=== PATIENT | male | born 1975 | race African-American/Black ===

== ENCOUNTER → 2024-01-12 09:14 | Outpatient (REF) | payer MEDICARE, OTHER, SELFPAY | LOC: RAD 09:14 | PROVIDERS: ATTENDING PHYSICIAN Internal Medicine Critical Care Medicine; FAMILY PHYSICIAN Internal Medicine; REFERRING PHYSICIAN Physician Assistant | DX: R93.89 Abnormal findings on diagnostic imaging of other specified body structures (principal) | CPT/HCPCS: 71250 ==

== ENCOUNTER 2024-01-28 03:12 | Emergency (ER) | payer MEDICARE, OTHER, SELFPAY ==
[2024-01-28 03:15] VITALS: BMI 32.0
[2024-01-28 03:27] VITALS: BP 115/58
[2024-01-28 04:00] VITALS: BP 111/81
[2024-01-28 04:13] LABS: % Eosinophils 2.6 % (0-6); % Immature Granulocytes 0.4 % (0-0.5); % Lymphocytes 13.8 % (20.5-51.1); % Monocytes 11.9 % (1.7-9.3); % Neutrophils 70.3 % (42.2-75.2); Absolute Basophils 0.1 10^3/uL (0-0.2); Absolute Eosinophils 0.2 10^3/uL (0-0.7); Absolute Monocytes 0.8 10^3/uL (0.1-0.6); Absolute Neutrophils 4.8 10^3/uL (1.4-6.5); Hematocrit 32.4 % (39.0-52.0); Hemoglobin 10.4 g/dL (13.0-18.0); Mean Corp Hgb Conc. 32.1 g/dL (33.0-37.0); Mean Corpuscular Hgb 27.4 pg (27.0-31.0); Mean Corpuscular Volume 85.3 fL (80.0-94.0); Mean Platelet Volume 10.7 fL (7.4-10.4); Nucleated Red Blood Cells % 0 % (-); Platelet Count 213 10^3/uL (130-400); Red Cell Dist. Width 19.2 % (11.5-14.5); White Blood Cell Count 6.9 10^3/uL (4.8-10.8)
[2024-01-28 04:52] LABS: INR 2.08; PT 23.3 Sec (11.4-14.6)
[2024-01-28 05:10] VITALS: BP 125/76
[2024-01-28] MEDS: DUONEB 3 ML INH ×2 (05:24→06:19)
[2024-01-28 05:40] LABS: ALT (SGPT) 28 U/L (0-50); AST (SGOT) 41 U/L (17-59); Albumin 4.4 g/dl (3.5-5.0); Alkaline Phosphatase 124 U/L (38-126); Blood Urea Nitrogen 41 mg/dl (9-20); Calcium 10.1 mg/dl (8.4-10.2); Carbon Dioxide 30 mmol/L (22-30); Chloride 96 mmol/L (98-107); Estimated Creatinine Clearance 18 ml/min; Glucose 125 mg/dl (70-99); NT-proBNP > 27000 pg/ml; Potassium 3.5 mmol/L (3.5-5.1); Sodium 141 mmol/L (135-145); Total Bilirubin 1.2 mg/dl (0.2-1.3); Total Protein 8.3 g/dl (6.3-8.2); Troponin I 0.045 ng/ml; eGFR 10.27
--- NOTE | 2024-01-28 05:55 | ED.GENMED ---
History of Present Illness
General
Chief Complaint: Breathing Problem
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 CT of the chest January 12, 2024 showing mild upper and lower lobe peribronchial thickening mildly progressed from previous CT October 2021) and
previous hospital records (ED visit for somewhat similar complaint of cough October 2023)
Exam Limitations: none
Time Seen by Provider: 01/28/24 04:19
Nursing documentation reviewed up to this point in time: agreed with
Travel History
Have you had any contact with someone who has COVID-19?: No
Do you have any symptoms of coronavirus? Fever > 100 degrees, chills, cough, shortness of breath, sore throat, loss of taste or smell, muscle aches, or headache?: Yes
Symptoms:: see above
History of Present Illness
History of Present Illness:
This is a 48-year-old gentleman who resides at a local halfway. He has history of chronic kidney disease dialysis dependent, history of COPD, chronic nasal cannula oxygen at 3 L, history of A-fib, chronically maintained on Coumadin prior
history of hypertension, CHF. He complains of chronic cough, ongoing for several weeks but worse over the past week. Mild but temporary relief with nebulizer treatment, no relief with Tessalon Perles. He has not had a fever nor chills. Cough is
hacking and nonproductive in nature accompanied with shortness of breath only noted with coughing fits. He does note a sore throat with coughing but has had no chest pain. No hemoptysis. Appetite has been good, no vomiting.
There has been no report of hypoxemia. He denies leg pain or swelling.
Received normal dialysis treatment yesterday and states he has been getting down to his usual dry weight with dialysis.
Previous ED visit for similar ongoing cough noted October 2023. CT of the chest
January 12, 2024 performed due to 3-month history of cough. CAT scan shows interstitial thickening and groundglass opacity on the right greater than left slightly progressed from previous CAT scan October 2021. Concerning for sarcoidosis,
hypersensitivity pneumonitis, lymphoid interstitial pneumonia, amyloidosis, less likely lymphangitic carcinomatosis or lymphoma/leukemia.
[facility] reviewed. INR supratherapeutic at 4.6 January 25. Coumadin held on January 25 and again January 26. To resume January 27.
Past History
Past History
ED Past Medical History: Arrthythmia (Atrial fibrillation), Asthma, HTN, Hypercholesterolemia, NIDDM, [place], Renal failure (End stage.), Valvular disease, Hypothyroidism and Other (Acute and chronic respiratory failure, sepsis, endocarditis, mitral
valve, depressive episodes, anemia, morbid obesity, pulmonary hypertension, Pulmonary edema, Colitis, GI bleeding. Dialysis, Ulcers)
ED Past Surgical History: Cardiac (Heart valve prosthesis) and Other
Social History
Tobacco: Former smoker
Alcohol: Occasional
Drug: None
Personal:
Living: halfway ( [facility])
Employment: Not employed
Family History
Family History: Hypertension
Phy Exam
Physical Exam
Physical Exam:
GENERAL: 48-year-old gentleman appears somewhat older than stated age, bright and alert, pleasant, appears in no acute distress. Nasal cannula oxygen in place. Respirations are easy and nonlabored. Rare hacking nonproductive cough is noted. Able
to speak in full sentences.
EYE: anicteric
NECK: Supple, nontender, no meningismus, no significant adenopathy. No JVD.
ENT: oral mucosa is moist. Mildly boggy pale blue turbinates with scant clear rhinorrhea.
CARDIAC: Irregularly irregular at a rate of 90-100, no murmur.
LUNGS: Mild bibasilar rales otherwise clear to auscultation. No respiratory distress.
ABDOMEN: Rotund, soft, nondistended, without focal tenderness, no r/g, no cvat. normoactive BS.
NEUROLOGICAL: Alert and oriented x3, no focal neuro deficits.
SKIN: Warm and dry, normal color, skin intact. No rash.
MUSCULOSKELETAL: Trace pretibial edema bilateral lower extremities. AV graft left upper arm, positive thrill and bruit. Peripheral pulses are full and equal b/l. No palpable tenderness.
PSYCH: Normal and appropriate interaction.
Scores
Heart Failure Risk
Heart Failure Risk Score: Yes
History of Stroke or TIA: No
History of intubation for respiratory distress: No
Heart rate on ED arrival >/= 110: Yes
SaO2 <90% on arrival on room air: No
HR >/=110 during 3min walk test (or too ill to perform test): Yes
ECG has acute ischemic changes: No
Urea >/=12mmol/L (BUN 33.6mg/dL): Yes
Serum CO2>/=35mmol/L: No
Troponin I or T elevated to MT Level (0.4mg/dL): No
NT-proBNP >/=5,000ng/L (5,000pg/ml): Yes
HF Risk Score: 4
Admission Status: HIGH RISK 26.1% Consider SNF treatment or admission to hospital
Course
Orders/Labs/Results
Orders:
Orders
01/28/24 03:22
Electrocardiogram (*1) Urgent
Reason for Study: Other
Other Reason for Exam: Respiratory Distress
Cardiac Monitoring- Treatment ONCE
EKG- Treatment ONCE
IV Insert/Care/Rem.- Treatment PRN
CR Chest - 2 Views Urgent
Comment:
Reason For Exam: respiratory distress
01/28/24 04:05
Complete Blood Count/With Diff Urgent
01/28/24 04:34
Comprehensive Metabolic Panel Urgent
NT-proBNP Urgent
Prothrombin Time Urgent
Troponin I Urgent
01/28/24 05:13
Ipratropium/Albuterol Sulfate [Duoneb] 3 ml INH R NOW STA
01/28/24 06:17
Ipratropium/Albuterol Sulfate [Duoneb] 3 ml .ROUTE .STK-MED ONE
01/28/24 06:18
Ipratropium/Albuterol Sulfate [Duoneb] 3 ml INH R NOW ONE
Prednisone [Deltasone] 50 mg PO NOW STA
Abnormal Lab Results
01/28/24 01/28/24
04:05 04:34
RBC 3.80 L 10^6/uL
(4.70-6.10)
Hgb 10.4 L g/dL
(13.0-18.0)
Hct 32.4 L %
(39.0-52.0)
MCHC 32.1 L g/dL
(33.0-37.0)
RDW 19.2 H %
(11.5-14.5)
MPV 10.7 H fL
(7.4-10.4)
Absolute Lymphs (auto) 1.0 L 10^3/uL
(1.2-3.4)
Absolute Monos (auto) 0.8 H 10^3/uL
(0.1-0.6)
Lymphocytes % 13.8 L %
(20.5-51.1)
Monocytes % 11.9 H %
(1.7-9.3)
PT 23.3 H Sec
(11.4-14.6)
Chloride 96 L mmol/L
(98-107)
BUN 41 H mg/dl
(9-20)
Creatinine 6.2 H* mg/dL
(0.7-1.3)
Glucose 125 H mg/dl
(70-99)
Troponin I 0.045 H* ng/ml
Total Protein 8.3 H g/dl
(6.3-8.2)
01/28/24 04:05
01/28/24 04:34
Vital Signs
Initial and Last Documented VS:
Initial Vital Signs
Temp Pulse Resp Pulse Ox
98.8 F 117 24 97
01/28/24 03:15 01/28/24 03:15 01/28/24 03:15 01/28/24 03:15
Last Documented Vital Signs
Temp Pulse Resp BP Pulse Ox
98.8 F 120 34 125/76 100
01/28/24 03:15 01/28/24 05:30 01/28/24 05:30 01/28/24 05:10 01/28/24 05:30
MDM/Problems Addressed
Differential Diagnosis Includes:
Patient presents with exacerbation of chronic cough.
Concern for acute on chronic CHF, exacerbation of COPD, pneumonia.
Will check labs, PT/INR, chest x-ray.
Will trial DuoNeb nebulizer for cough.
Chronic conditions affecting care: HTN, Cardiomyopathy, Arrhythmia, COPD and Kidney disease
*Radiology
Radiology exam reviewed: preliminary read by ED provider (Chest x-ray shows marked with stable cardiomegaly, mild increased interstitial markings bilaterally has improved from previous films October 2023.)
*Pulse Oximetry
Patient hypoxic: no
*EKG
Interpreted by ED Provider?: Yes
Comparison EKG: no changes (Unchanged from previous October 2023)
Rate: normal
Rhythm: a-fib and PVC's (Unifocal PVCs)
Duff: normal axis
Interval: normal QT interval
QRS Pattern: normal QRS
Ischemia: non-specific ST changes
*Computer Engineering Technologist Interpretation
Rate: normal
Interpretation: normal
Rhythm: a-fib
*Critical Care Note
Total Time (30-74mins, 75-104mins- exclusive of procedures): Not Applicable
Update Note
Update Note:
01/28/2024 0615 AM
Patient has had marked improvement in cough after initial nebulizer treatment. Overall appears comfortable.
Chest x-ray shows chronic cardiomegaly, mild to moderate interstitial fullness bilaterally that is overall improved from previous film October 2023.
Labs showed normal white blood cell count of 6.9, mild but stable anemia.
Chemistries show stable chronic kidney disease, unremarkable electrolytes.
Markedly elevated BNP which is overall improved from previous.
Borderline elevated troponin 0.045, similar to previous and likely reflective of chronic kidney disease.
INR 2.08. COUMADIN to be resumed today.
CT of the chest performed earlier this month for chronic cough concerning for interstitial pneumonitis, sarcoid. It is reassuring that patient has not had a fever and normal white blood cell count.
CT not consistent with fluid overload/CHF.
I have discussed these findings with patient and ultimately recommend evaluation with bottom crane operator.
We could consider adding a short course of prednisone and recommend continuing nebulizer treatments but increasing to 4 times daily as well as every 4 hours as needed.
Will discharge back to halfway for continued care.
ED Attending Note
-
Portions of this chart may have been created with voice recognition software.� Occasional wrong word or��sound alike� substitutions may have occurred due to the inherent limitations of voice recognition software.
Discharge Plan
Departure
Patient Disposition: Prison/SNF
Date of Disposition: 01/28/24
Time of Disposition: 06:41
Patient with high blood pressure during this ER visit?: No
Condition: Good
Discharge Problem:
acute exacerbation of chronic cough, COPD exacerbation, On home oxygen therapy, Dialysis patient
Instructions: Exacerbation of COPD (DC)
Prescriptions:
New
prednisone 10 mg Tablet
See Rx Instructions .ROUTE .COMPLEX Qty: 30 0RF
Rx Instructions:
Take By Mouth:
40 mg daily x3 days, 30 mg daily x3 days,
20 mg daily x3 days, 10 mg daily x3 days.
No Action
gabapentin 300 MG capsule
300 mg PO HS
polyethylene glycol 3350 17 GRAMS powder in packet
17 grams PO SUTUTHSA PRN (Reason: constipation)
Rx Instructions:
10/14/2023, take in the morning.
sevelamer carbonate 800 MG tablet
800 mg PO MEALS
liothyronine 25 MICROGRAM tablet
75 mcg PO DAILY
atorvastatin 20 MG tablet
20 mg PO HS
levothyroxine 300 MCG tablet
300 mcg PO DAILY
pantoprazole 40 MG tablet,delayed release (DR/EC)
40 mg PO DAILY
bisacodyl [OneLAX Bisacodyl] 10 MG suppository
10 mg [place] DAILYPRN PRN (Reason: constipation)
metoprolol succinate 25 mg tablet extended release 24 hr
25 mg PO MOWEFR@2200
Rx Instructions:
10/14/2023, take at bedtime on Fr.
metoprolol succinate 25 mg tablet extended release 24 hr
25 mg PO SUTUTHSA
Rx Instructions:
10/14/2023, take BID on Sundays, Tuesdays, , and Saturdays.
budesonide 0.25 mg/2 mL Suspension For Nebulization
0.25 mg INHALATION R [id number] PRN (Reason: SOB/wheezing)
benzonatate [Tessalon Perles] 100 mg Capsule
100 mg PO Q8HPRN PRN (Reason: cough)
albuterol sulfate [ProAir HFA] 90 mcg/actuation Hfa Aerosol Inhaler
2 puff INHALATION R Q4HPRN PRN (Reason: asthma)
sennosides [senna] 8.6 mg Tablet
8.6 mg PO HS
warfarin [Coumadin] 2 mg Tablet
11 mg PO QPM
Nephrocaps 1 mg Capsule
1 cap PO HS
midodrine 10 mg Tablet
10 mg PO Q6H
Rx Instructions:
10/14/2023, hold for SBP>=150.
bupropion HCl [Wellbutrin XL] 300 mg Tablet Extended Release 24 Hr
300 mg PO MOWEFR@2200
Rx Instructions:
10/14/2023, take at bedtime on .
acetaminophen 325 MG tablet
650 mg PO Q4HPRN PRN (Reason: mild pain/temp>100F)
tramadol 50 mg tablet
50 mg PO Q6HPRN PRN (Reason: moderate pain)
Referrals:
William Bellamy DO [Family Provider] - Call in 1-3 days for appt
Cesar Lozoya MD [Active] - Call in 1-3 days for appt
Activity Restrictions/Additional Instructions:
Increase DuoNeb nebulizer to 4 times daily.
Continue budesonide inhaler twice daily.
Interventions
Interventions:
*Risk Screen - Suicide Last Done: 01/28/24 03:15
*General Assessment Last Done: 01/28/24 03:15
*Neglect/Abuse Screening Last Done: 01/28/24 03:15
ED- Fall Risk Assessment Last Done: 01/28/24 03:15
*ED COVID-19 Vaccine History Last Done: 01/28/24 03:15
ED- Cardiac Assessment Last Done: 01/28/24 03:15
ED- Pulmonary Assessment Last Done: 01/28/24 03:15
[2024-01-28] MEDS: DELTASONE 50 MG PO (06:39)
[2024-01-28 06:41] VITALS: BP 116/66
== END 2024-01-28 07:15 ==
LOC: EMR 03:12
PROVIDERS: Student in an Organized Health Care Education/Training Program; EMERGENCY PHYSICIAN Emergency Medicine; FAMILY PHYSICIAN Internal Medicine
DX: R05.3 Chronic cough (principal); D64.9 Anemia, unspecified; N18.6 End stage renal disease; I13.2 Hypertensive heart and chronic kidney disease with heart failure and with stage 5 chronic kidney disease, or end stage renal disease; I42.9 Cardiomyopathy, unspecified; J44.9 Chronic obstructive pulmonary disease, unspecified; I48.91 Unspecified atrial fibrillation; Z99.2 Dependence on renal dialysis; Z99.81 Dependence on supplemental oxygen
CPT/HCPCS: 99285; 94640; 71046; 80053; 83880; 84484; 85025; 85610; 93005

== ENCOUNTER 2024-02-22 07:35 | Emergency (ER) | payer MEDICARE, OTHER, SELFPAY ==
[2024-02-22 07:37] VITALS: BP 126/69
--- NOTE | 2024-02-22 08:20 | ED.GENMED ---
History of Present Illness
General
Chief Complaint: Nose Bleed
Source: patient
Time Seen by Provider: 02/22/24 07:55
Travel History
Have you had any contact with someone who has COVID-19?: No
Do you have any symptoms of coronavirus? Fever > 100 degrees, chills, cough, shortness of breath, sore throat, loss of taste or smell, muscle aches, or headache?: No
History of Present Illness
History of Present Illness:
48-year-old male with extensive cardiopulmonary past medical history, chronic kidney disease (hemodialysis Tuesday, Tuesday, Tuesday) presenting emergency department for evaluation of a nosebleed that started last night and has been intermittent
since, got worse on his way to dialysis prompting him to come to the ER for further evaluation. Patient is on Coumadin for his cardiac disease and reports good compliance with this, unknown last INR. States bleeding was coming from the right nare
only and seems to be under control at this time. Patient wears 3 L via nasal cannula chronically and notes a history of epistaxis from the same nare in the past. Denies any fevers or infectious symptoms or any other concerns.
Past History
Past History
ED Past Medical History: Arrthythmia (Atrial fibrillation), Asthma, HTN, Hypercholesterolemia, NIDDM, [place], Renal failure (End stage.), Valvular disease, Hypothyroidism and Other (Acute and chronic respiratory failure, sepsis, endocarditis, mitral
valve, depressive episodes, anemia, morbid obesity, pulmonary hypertension, Pulmonary edema, Colitis, GI bleeding. Dialysis, Ulcers)
ED Past Surgical History: Cardiac (Heart valve prosthesis) and Other
Social History
Tobacco: Former smoker
Alcohol: Occasional
Drug: None
Personal:
Living: [facility] ( [facility])
Employment: Not employed
Family History
Family History: Hypertension
Review of Systems
Review of Systems
All Other Systems: ROS reviewed and negative except as documented in HPI and ROS
Phy Exam
Physical Exam
Physical Exam:
GENERAL: Alert , in no apparent distress
EYE: conjunctiva clear
NECK: Supple
ENT: Small epistaxis posterior oropharynx and anterior right nare, mmm. Tolerating secretions
CARDIAC: Regular rate and rhythm
LUNGS: Clear breath sounds bilaterally, no acute respiratory distress, no wheezes/rales/rhonchi
NEUROLOGICAL: Alert and oriented
SKIN: Warm and dry, skin intact.
MUSCULOSKELETAL: well perfused. RUE fistula
PSYCH: Normal and appropriate interaction.
Scores
Heart Failure Risk
Heart Failure Risk Score: Not Applicable
Heart Score for Chest Pain Patients
STEMI patient?: Not applicable
Withdrawal Assessment of Alcohol
Withdrawal Assessment Completed?: Not applicable
Course
Orders/Labs/Results
Orders:
Orders
02/22/24 08:16
Hemoglobin Urgent
Prothrombin Time Urgent
02/22/24 08:19
Oxymetazoline HCl [Afrin Nasal [place]] See Dose Instructions NASAL NOW STA
Abnormal Lab Results
02/22/24
08:16
Hgb 9.8 L g/dL
(13.0-18.0)
PT 33.5 H Sec
(11.4-14.6)
02/22/24 08:16
Vital Signs
Initial and Last Documented VS:
Initial Vital Signs
Temp Pulse Resp BP Pulse Ox
98.7 F 109 20 126/69 100
02/22/24 07:37 02/22/24 07:37 02/22/24 07:37 02/22/24 07:37 02/22/24 07:37
Last Documented Vital Signs
Temp Pulse Resp BP Pulse Ox
98.7 F 118 21 132/76 93
02/22/24 07:37 02/22/24 09:00 02/22/24 09:00 02/22/24 09:00 02/22/24 09:11
MDM/Problems Addressed
Differential Diagnosis Includes:
Atraumatic epistaxis, supratherapeutic INR, anemia
MDM/Problems Addressed:
48-year-old male presenting emergency department for evaluation of right nare epistaxis, on Coumadin due to multiple cardiac risk factors. Bleeding is well-controlled at this time. Patient did not get his dialysis today. Will check an INR as well
as hemoglobin. Will instill Afrin into the right nare. May need a temporary clamp and to have his nasal cannula removed for a few minutes to allow for pressure to the area.
*Pulse Oximetry
Patient hypoxic: no
*Critical Care Note
Total Time (30-74mins, 75-104mins- exclusive of procedures): Not Applicable
Data Reviewed
Review of Other/Old Records Reveals: Labs and Records
Source: patient
Comment
Comment:
Patient had very mild continuous ooze despite Afrin and nasal clamp. Small vessel at the anterior septum was noted for bleeding and this was cauterized with silver nitrate stick. No further epistaxis noted following this. I was able to contact
patient's dialysis center at [place] [facility] when they were able to reschedule patient's dialysis session for today at 11:30 AM. Import Export Agent from patient's nursing facility will come to pick the patient up and bring him to dialysis later this morning.
Patient is in agreement with this plan and will follow-up with primary care provider.
Patient Management
Social determinants of health affecting care: Living situation
Discussion with other providers: Other (dialysis staff)
ED Attending Note
-
Portions of this chart may have been created with voice recognition software.� Occasional wrong word or��sound alike� substitutions may have occurred due to the inherent limitations of voice recognition software.
Discharge Plan
Departure
Patient Disposition: Snf/SNF
Date of Disposition: 02/22/24
Time of Disposition: 09:35
Patient with high blood pressure during this ER visit?: Yes
Discharge Problem:
Right-sided epistaxis
Instructions: Nosebleeds (DC)
Prescriptions:
No Action
gabapentin 300 MG capsule
300 mg PO HS
polyethylene glycol 3350 17 GRAMS powder in packet
17 grams PO SUTUTHSA PRN (Reason: constipation)
Rx Instructions:
10/14/2023, take in the morning.
sevelamer carbonate 800 MG tablet
800 mg PO MEALS
liothyronine 25 MICROGRAM tablet
75 mcg PO DAILY
atorvastatin 20 MG tablet
20 mg PO HS
levothyroxine 300 MCG tablet
300 mcg PO DAILY
pantoprazole 40 MG tablet,delayed release (DR/EC)
40 mg PO DAILY
bisacodyl [OneLAX Bisacodyl] 10 MG suppository
10 mg [place] DAILYPRN PRN (Reason: constipation)
metoprolol succinate 25 mg tablet extended release 24 hr
25 mg PO MOWEFR@2200
Rx Instructions:
10/14/2023, take at bedtime on MoWeFr.
metoprolol succinate 25 mg tablet extended release 24 hr
25 mg PO SUTUTHSA
Rx Instructions:
10/14/2023, take BID on Sundays, Tuesdays, , and Saturdays.
budesonide 0.25 mg/2 mL Suspension For Nebulization
0.25 mg INHALATION R [id number] PRN (Reason: SOB/wheezing)
benzonatate [Tessalon Perles] 100 mg Capsule
100 mg PO Q8HPRN PRN (Reason: cough)
albuterol sulfate [ProAir HFA] 90 mcg/actuation Hfa Aerosol Inhaler
2 puff INHALATION R Q4HPRN PRN (Reason: asthma)
sennosides [senna] 8.6 mg Tablet
8.6 mg PO HS
warfarin [Coumadin] 2 mg Tablet
11 mg PO QPM
Nephrocaps 1 mg Capsule
1 cap PO HS
midodrine 10 mg Tablet
10 mg PO Q6H
Rx Instructions:
10/14/2023, hold for SBP>=150.
bupropion HCl [Wellbutrin XL] 300 mg Tablet Extended Release 24 Hr
300 mg PO MOWEFR@2200
Rx Instructions:
10/14/2023, take at bedtime on MoWeFr.
acetaminophen 325 MG tablet
650 mg PO Q4HPRN PRN (Reason: mild pain/temp>100F)
tramadol 50 mg tablet
50 mg PO Q6HPRN PRN (Reason: moderate pain)
prednisone 10 mg Tablet
See Rx Instructions .ROUTE .COMPLEX Qty: 30 0RF
Rx Instructions:
Take By Mouth:
40 mg daily x3 days, 30 mg daily x3 days,
20 mg daily x3 days, 10 mg daily x3 days.
Referrals:
William Bellamy I., DO [Family Provider] -
Interventions
Interventions:
*Risk Screen - Suicide Last Done: 02/22/24 07:49
*General Assessment Last Done: 02/22/24 08:37
*Neglect/Abuse Screening Last Done: 02/22/24 07:49
ED- Fall Risk Assessment Last Done: 02/22/24 07:51
*ED COVID-19 Vaccine History Last Done: 02/22/24 07:37
*Nursing Disposition Last Done: 02/22/24 09:58
ED-EENT Assessment Last Done: 02/22/24 07:49
Discharge Date and Time
Discharge Date/Time: 02/22/24 10:00
Print Language: LITHUANIAN
[2024-02-22 08:37] LABS: Hemoglobin 9.8 g/dL (13.0-18.0)
[2024-02-22] MEDS: AFRIN NASAL SPRAY 2 SPRAYS NASAL (08:40)
[2024-02-22 08:50] LABS: INR 3.23; PT 33.5 Sec (11.4-14.6)
[2024-02-22 09:00] VITALS: BP 132/76
== END 2024-02-22 10:00 ==
LOC: EMR 07:35
PROVIDERS: Physician Assistant Medical; EMERGENCY PHYSICIAN Emergency Medicine; FAMILY PHYSICIAN Internal Medicine
DX: R04.0 Epistaxis (principal); I12.0 Hypertensive chronic kidney disease with stage 5 chronic kidney disease or end stage renal disease; E11.22 Type 2 diabetes mellitus with diabetic chronic kidney disease; N18.6 End stage renal disease; J45.909 Unspecified asthma, uncomplicated; I48.91 Unspecified atrial fibrillation; E78.00 Pure hypercholesterolemia, unspecified; E03.9 Hypothyroidism, unspecified; D64.9 Anemia, unspecified; E66.01 Morbid (severe) obesity due to excess calories; Z79.01 Long term (current) use of anticoagulants; Z82.49 Family history of ischemic heart disease and other diseases of the circulatory system; Z87.891 Personal history of nicotine dependence; Z99.2 Dependence on renal dialysis
CPT/HCPCS: 99283; 30901; 85018; 85610

== ENCOUNTER 2024-03-23 17:31 | Emergency (ER) | payer MEDICARE, OTHER, SELFPAY ==
[2024-03-23] VITALS (9 sets, daily range): BP systolic 92–116; BP diastolic 59–88; BMI 30.5
[2024-03-23 17:51] LABS: % Basophils 0.7 % (0-2); % Immature Granulocytes 0.3 % (0-0.5); % Monocytes 7.7 % (1.7-9.3); % Neutrophils 82.3 % (42.2-75.2); Absolute Basophils 0.1 10^3/uL (0-0.2); Absolute Eosinophils 0.2 10^3/uL (0-0.7); Absolute Lymphocytes 0.6 10^3/uL (1.2-3.4); Absolute Monocytes 0.7 10^3/uL (0.1-0.6); Absolute Neutrophils 7.5 10^3/uL (1.4-6.5); Hematocrit 28.7 % (39.0-52.0); Hemoglobin 9.3 g/dL (13.0-18.0); Mean Corp Hgb Conc. 32.4 g/dL (33.0-37.0); Mean Corpuscular Hgb 27.8 pg (27.0-31.0); Mean Corpuscular Volume 85.7 fL (80.0-94.0); Mean Platelet Volume 9.6 fL (7.4-10.4); Nucleated Red Blood Cells % 0 % (-); Platelet Count 206 10^3/uL (130-400); Red Blood Cell Count 3.35 10^6/uL (4.70-6.10); Red Cell Dist. Width 18.9 % (11.5-14.5); White Blood Cell Count 9.1 10^3/uL (4.8-10.8)
[2024-03-23 18:08] LABS: ALT (SGPT) 23 U/L (0-50); AST (SGOT) 33 U/L (17-59); Albumin 3.9 g/dl (3.5-5.0); Alkaline Phosphatase 110 U/L (38-126); Blood Urea Nitrogen 22 mg/dl (9-20); Calcium 8.7 mg/dl (8.4-10.2); Carbon Dioxide 29 mmol/L (22-30); Chloride 99 mmol/L (98-107); Glucose 82 mg/dl (70-99); Potassium 3.1 mmol/L (3.5-5.1); Sodium 139 mmol/L (135-145); Total Bilirubin 1.2 mg/dl (0.2-1.3); Total Protein 7.3 g/dl (6.3-8.2); eGFR 20.39
[2024-03-23 18:15] LABS: Troponin I 0.045 ng/ml
[2024-03-23] MEDS: DUONEB 3 ML INH (19:24)
[2024-03-23] MEDS: NSS 250 IV (20:04)
[2024-03-23] MEDS: ProAmatine 10 MG PO (22:23)
[2024-03-23] MEDS: LOPRESSOR 25 MG PO (23:36)
--- NOTE | 2024-03-23 23:38 | ED.GENMED ---
History of Present Illness
General
Chief Complaint: Fainting/Passed Out
Source: patient, records and ambulance crew
Exam Limitations: none
Time Seen by Provider: 03/23/24 17:40
Nursing documentation reviewed up to this point in time: agreed with
Travel History
Have you had any contact with someone who has COVID-19?: No
Do you have any symptoms of coronavirus? Fever > 100 degrees, chills, cough, shortness of breath, sore throat, loss of taste or smell, muscle aches, or headache?: No
History of Present Illness
History of Present Illness:
Patient to ED from dialysis for syncopal episde. According to staff he started to cough and then passed out. On arrival to ED he is awake and alert, in no distess. Cough is chronic. He reports that nothing has helped suppress cough in past. No
other complaints.
Past History
Past History
ED Past Medical History: Arrthythmia (Atrial fibrillation), Asthma, HTN, Hypercholesterolemia, NIDDM, [place], Renal failure (End stage.), Valvular disease, Hypothyroidism and Other (Acute and chronic respiratory failure, sepsis, endocarditis, mitral
valve, depressive episodes, anemia, morbid obesity, pulmonary hypertension, Pulmonary edema, Colitis, GI bleeding. Dialysis, Ulcers)
ED Past Surgical History: Cardiac (Heart valve prosthesis) and Other
Social History
Tobacco: Former smoker
Alcohol: Occasional
Drug: None
Personal:
Living: residential ( [facility] [employer]
Employment: Not employed
Family History
Family History: Hypertension
Review of Systems
Review of Systems
Allergies reviewed?: Yes
All Other Systems: ROS reviewed and negative except as documented in HPI and ROS
Constitutional: Reports no symptoms
EENT: Reports no symptoms
Respiratory: Reports cough
Cardiac: Reports syncope
ABD/GI: Reports no symptoms
: Reports no symptoms
Musculoskeletal: Reports no symptoms
Skin: Reports no symptoms
Neurological: Reports no symptoms
Phy Exam
General Physical Exam
General Presentation: well appearing and no apparent distress
General age: appears stated age
General Skin: warm and dry
General Habitus: normal
General Mental: alert
Cardiovascular Exam
Cardiovascular Exam: irregularly irregular (chronic afib)
Pulmonary Exam
Pulmonary Exam: no respiratory distress, chest non tender and decreased breath sounds
Gastrointestinal Exam
Gastrointestinal Exam: normal bowel sounds, non tender and soft
Musculoskeletal Exam
Musculoskeletal Exam: full ROM and neuro vasc intact
Skin Exam
Skin Exam: normal color, warm/dry and no rash
Psychiatric Exam
Psychiatric Exam: normal mood/affect
Course
Orders/Labs/Results
Orders:
Orders
03/23/24 17:35
Electrocardiogram (*1) Urgent
Reason for Study: Other
Other Reason for Exam: syncope
CT Head W/o Iv Contrast Urgent
Comment:
Reason For Exam: syncope
03/23/24 17:36
EKG- Treatment ONCE
03/23/24 17:40
CR Chest - 2 Views Urgent
Comment:
Reason For Exam: cough
03/23/24 17:41
Complete Blood Count/With Diff Urgent
Comprehensive Metabolic Panel Urgent
Troponin I Urgent
03/23/24 19:02
Ipratropium/Albuterol Sulfate [Duoneb] 3 ml INH R NOW ONE
03/23/24 19:55
0.9% Sodium Chloride 250 ml [Nss] 250 ml IV BOLUS
03/23/24 22:17
Midodrine [ProAmatine] 10 mg PO NOW STA
03/23/24 23:34
Metoprolol [Lopressor] 25 mg PO NOW STA
Abnormal Lab Results
03/23/24
17:41
RBC 3.35 L 10^6/uL
(4.70-6.10)
Hgb 9.3 L g/dL
(13.0-18.0)
Hct 28.7 L %
(39.0-52.0)
MCHC 32.4 L g/dL
(33.0-37.0)
RDW 18.9 H %
(11.5-14.5)
Absolute Neuts (auto) 7.5 H 10^3/uL
(1.4-6.5)
Absolute Lymphs (auto) 0.6 L 10^3/uL
(1.2-3.4)
Absolute Monos (auto) 0.7 H 10^3/uL
(0.1-0.6)
Neutrophils % 82.3 H %
(42.2-75.2)
Lymphocytes % 7.0 L %
(20.5-51.1)
Potassium 3.1 L mmol/L
(3.5-5.1)
BUN 22 H mg/dl
(9-20)
Creatinine 3.5 H mg/dL
(0.7-1.3)
Troponin I 0.045 H* ng/ml
03/23/24 17:41
03/23/24 17:41
Vital Signs
Initial and Last Documented VS:
Initial Vital Signs
BP
92/77
03/23/24 17:36
Last Documented Vital Signs
Temp Pulse Resp BP Pulse Ox
97.8 F 118 22 107/66 95
03/24/24 00:50 03/24/24 00:50 03/24/24 00:50 03/24/24 00:50 03/24/24 00:50
*Radiology
Radiology exam reviewed: radiology read reviewed
*Pulse Oximetry
Patient hypoxic: no (on 3L NC continuous)
*Critical Care Note
Total Time (30-74mins, 75-104mins- exclusive of procedures): Not Applicable
ED Attending Note
-
Portions of this chart may have been created with voice recognition software.� Occasional wrong word or��sound alike� substitutions may have occurred due to the inherent limitations of voice recognition software.
Discharge Plan
Departure
Patient Disposition: Home (Routine Discharge)
Date of Disposition: 03/23/24
Time of Disposition: 20:32
Patient with high blood pressure during this ER visit?: No
Condition: Good
Covid-19: Not Applicable
Discharge Problem:
Cough
Instructions: Cough in adults, Syncope (Fainting) (DC)
Prescriptions:
No Action
gabapentin 300 MG capsule
300 mg PO HS
polyethylene glycol 3350 17 GRAMS powder in packet
17 grams PO SUTUTHSA PRN (Reason: constipation)
Rx Instructions:
10/14/2023, take in the morning.
sevelamer carbonate 800 MG tablet
800 mg PO MEALS
liothyronine 25 MICROGRAM tablet
75 mcg PO DAILY
atorvastatin 20 MG tablet
20 mg PO HS
levothyroxine 300 MCG tablet
300 mcg PO DAILY
pantoprazole 40 MG tablet,delayed release (DR/EC)
40 mg PO DAILY
bisacodyl [OneLAX Bisacodyl] 10 MG suppository
10 mg DC DAILYPRN PRN (Reason: constipation)
metoprolol succinate 25 mg tablet extended release 24 hr
25 mg PO MOWEFR@2200
Rx Instructions:
10/14/2023, take at bedtime on MoWeFr.
metoprolol succinate 25 mg tablet extended release 24 hr
25 mg PO SUTUTHSA
Rx Instructions:
10/14/2023, take BID on Sundays, Tuesdays, , and Saturdays.
budesonide 0.25 mg/2 mL Suspension For Nebulization
0.25 mg INHALATION R [id number] PRN (Reason: SOB/wheezing)
benzonatate [Tessalon Perles] 100 mg Capsule
100 mg PO Q8HPRN PRN (Reason: cough)
albuterol sulfate [ProAir HFA] 90 mcg/actuation Hfa Aerosol Inhaler
2 puff INHALATION R Q4HPRN PRN (Reason: asthma)
sennosides [senna] 8.6 mg Tablet
8.6 mg PO HS
warfarin [Coumadin] 2 mg Tablet
11 mg PO QPM
Nephrocaps 1 mg Capsule
1 cap PO HS
midodrine 10 mg Tablet
10 mg PO Q6H
Rx Instructions:
10/14/2023, hold for SBP>=150.
bupropion HCl [Wellbutrin XL] 300 mg Tablet Extended Release 24 Hr
300 mg PO MOWEFR@2200
Rx Instructions:
10/14/2023, take at bedtime on MoWeFr.
acetaminophen 325 MG tablet
650 mg PO Q4HPRN PRN (Reason: mild pain/temp>100F)
tramadol 50 mg tablet
50 mg PO Q6HPRN PRN (Reason: moderate pain)
prednisone 10 mg Tablet
See Rx Instructions .ROUTE .COMPLEX Qty: 30 0RF
Rx Instructions:
Take By Mouth:
40 mg daily x3 days, 30 mg daily x3 days,
20 mg daily x3 days, 10 mg daily x3 days.
Referrals:
William Bellamy I., DO [Family Provider] - Follow up in 2-3 days
Interventions
Interventions:
*Risk Screen - Suicide Last Done: 03/23/24 17:37
*General Assessment Last Done: 03/23/24 17:37
*Neglect/Abuse Screening Last Done: 03/23/24 17:37
ED- Fall Risk Assessment Last Done: 03/23/24 23:15
*ED COVID-19 Vaccine History Last Done: 03/24/24 00:47
*Nursing Disposition Last Done: 03/24/24 00:50
ED- Cardiac Assessment Last Done: 03/23/24 18:16
ED- Neurological Assessment Last Done: 03/23/24 18:16
Discharge Date and Time
Discharge Date/Time: 03/24/24 00:50
Print Language: MALIAN
[2024-03-24] VITALS: BP 107/66
[2024-03-24 00:50] VITALS: BP 107/66
== END 2024-03-24 00:50 | disposition home or self-care (01) ==
LOC: EMR 17:31
PROVIDERS: EMERGENCY PHYSICIAN Emergency Medicine; FAMILY PHYSICIAN Internal Medicine
DX: R55 Syncope and collapse (principal); I48.91 Unspecified atrial fibrillation; J45.909 Unspecified asthma, uncomplicated; I12.0 Hypertensive chronic kidney disease with stage 5 chronic kidney disease or end stage renal disease; N18.6 End stage renal disease; E03.9 Hypothyroidism, unspecified; E66.01 Morbid (severe) obesity due to excess calories; E78.00 Pure hypercholesterolemia, unspecified; J84.89 Other specified interstitial pulmonary diseases; Z82.49 Family history of ischemic heart disease and other diseases of the circulatory system; Z87.891 Personal history of nicotine dependence; Z99.2 Dependence on renal dialysis
CPT/HCPCS: 99284; 94640; 96360; 70450; 71046; 80053; 84484; 85025; 93005

== ENCOUNTER → 2024-04-12 | Outpatient (REF) | payer MEDICARE, OTHER, SELFPAY | LOC: DHSLP | PROVIDERS: ATTENDING PHYSICIAN Internal Medicine; FAMILY PHYSICIAN Internal Medicine | DX: G47.33 Obstructive sleep apnea (adult) (pediatric) (principal); G47.61 Periodic limb movement disorder | CPT/HCPCS: 95811 ==

== ENCOUNTER 2024-04-30 17:29 | Emergency (ER) | payer MEDICARE, OTHER, SELFPAY ==
[2024-04-30] VITALS (8 sets, daily range): BP systolic 93–113; BP diastolic 58–83; BMI 33.6
[2024-04-30 18:55] LABS: % Eosinophils 1.8 % (0-6); % Immature Granulocytes 0.3 % (0-0.5); % Lymphocytes 9.9 % (20.5-51.1); % Monocytes 8.3 % (1.7-9.3); % Neutrophils 78.7 % (42.2-75.2); Absolute Basophils 0.1 10^3/uL (0-0.2); Absolute Eosinophils 0.1 10^3/uL (0-0.7); Absolute Lymphocytes 0.6 10^3/uL (1.2-3.4); Absolute Monocytes 0.5 10^3/uL (0.1-0.6); Absolute Neutrophils 4.9 10^3/uL (1.4-6.5); Hematocrit 31.4 % (39.0-52.0); Hemoglobin 10.4 g/dL (13.0-18.0); Mean Corp Hgb Conc. 33.1 g/dL (33.0-37.0); Mean Corpuscular Hgb 28.3 pg (27.0-31.0); Mean Corpuscular Volume 85.3 fL (80.0-94.0); Mean Platelet Volume 10.4 fL (7.4-10.4); Nucleated Red Blood Cells % 0 % (-); Platelet Count 193 10^3/uL (130-400); Red Blood Cell Count 3.68 10^6/uL (4.70-6.10); Red Cell Dist. Width 17.9 % (11.5-14.5); White Blood Cell Count 6.2 10^3/uL (4.8-10.8)
[2024-04-30] MEDS: LOPRESSOR 25 MG PO (18:55)
[2024-04-30 19:06] LABS: INR 3.41; PT 34.4 Sec (11.4-14.6)
[2024-04-30 19:13] LABS: ALT (SGPT) 21 U/L (0-50); AST (SGOT) 29 U/L (17-59); Albumin 4.6 g/dl (3.5-5.0); Alkaline Phosphatase 116 U/L (38-126); Blood Urea Nitrogen 32 mg/dl (9-20); Calcium 9.6 mg/dl (8.4-10.2); Carbon Dioxide 29 mmol/L (22-30); Chloride 93 mmol/L (98-107); Estimated Creatinine Clearance 20 ml/min; Glucose 87 mg/dl (70-99); Potassium 3.2 mmol/L (3.5-5.1); Sodium 137 mmol/L (135-145); Total Bilirubin 1.5 mg/dl (0.2-1.3); Total Protein 8.1 g/dl (6.3-8.2)
--- NOTE | 2024-04-30 21:56 | ED.GENMED ---
History of Present Illness
General
Chief Complaint: Seizure
Source: patient, ambulance crew and skilled nursing
Exam Limitations: none
Time Seen by Provider: 04/30/24 18:19
Nursing documentation reviewed up to this point in time: agreed with
History of Present Illness
History of Present Illness:
48-year-old male presenting to the emergency department from [facility] after a described seizure that lasted about 5 to 6 seconds with a very brief episode of confusion but quickly resolved. He denies any current symptoms at
this point. Does have a history of end-stage renal disease got his dialysis today on oxygen chronically. He claims he does have a history of seizures but is unsure if he ever had medications for this and is unsure who he ever followed up with in
the past.
Past History
Past History
ED Past Medical History: Arrthythmia (Atrial fibrillation), Asthma, HTN, Hypercholesterolemia, NIDDM, [place], Renal failure (End stage.), Valvular disease, Hypothyroidism and Other (Acute and chronic respiratory failure, sepsis, endocarditis, mitral
valve, depressive episodes, anemia, morbid obesity, pulmonary hypertension, Pulmonary edema, Colitis, GI bleeding. Dialysis, Ulcers)
ED Past Surgical History: Cardiac (Heart valve prosthesis) and Other
Social History
Tobacco: Former smoker
Alcohol: Occasional
Drug: None
Personal:
Living: skilled nursing ( [facility])
Employment: Not employed
Family History
Family History: Hypertension
Review of Systems
Review of Systems
Allergies reviewed?: Yes
All Other Systems: ROS reviewed and negative except as documented in HPI and ROS
Phy Exam
Physical Exam
Physical Exam:
GENERAL: Alert , in no apparent distress
EYE: pupils equal and reactive
NECK: Supple, no significant adenopathy.
ENT: o/p clr, mmm.
CARDIAC: Regular rate and rhythm .
LUNGS: Clear breath sounds bilaterally, no acute respiratory distress, no wheezes/rales/rhonchi
ABDOMEN: Soft, without focal tenderness, no r/g, no cvat
NEUROLOGICAL: Alert and oriented, no focal neuro deficits
SKIN: Warm and dry, skin intact.
MUSCULOSKELETAL: No edema, well perfused.
PSYCH: Normal and appropriate interaction.
Course
Orders/Labs/Results
Orders:
Orders
04/30/24 18:27
Metoprolol [Lopressor] 25 mg PO NOW STA
04/30/24 18:28
Urinalysis Reflex To Culture Urgent
04/30/24 18:29
Electrocardiogram (*1) Stat
Reason for Study: Abdominal Pain
EKG- Treatment ONCE
04/30/24 18:49
Complete Blood Count/With Diff Urgent
Comprehensive Metabolic Panel Urgent
Prothrombin Time Urgent
04/30/24 19:08
Chest [CR Chest - 2 Views ] Urgent
Comment:
Reason For Exam: cough
04/30/24 19:21
CT Head W/o Iv Contrast Urgent
Comment:
Reason For Exam: seizure
Abnormal Lab Results
04/30/24
18:49
RBC 3.68 L 10^6/uL
(4.70-6.10)
Hgb 10.4 L g/dL
(13.0-18.0)
Hct 31.4 L %
(39.0-52.0)
RDW 17.9 H %
(11.5-14.5)
Absolute Lymphs (auto) 0.6 L 10^3/uL
(1.2-3.4)
Neutrophils % 78.7 H %
(42.2-75.2)
Lymphocytes % 9.9 L %
(20.5-51.1)
PT 34.4 H Sec
(11.4-14.6)
Potassium 3.2 L mmol/L
(3.5-5.1)
Chloride 93 L mmol/L
(98-107)
BUN 32 H mg/dl
(9-20)
Creatinine 5.6 H* mg/dL
(0.7-1.3)
Total Bilirubin 1.5 H mg/dl
(0.2-1.3)
04/30/24 18:49
04/30/24 18:49
Vital Signs
Initial and Last Documented VS:
Initial Vital Signs
Temp Pulse Resp BP Pulse Ox
98.7 F 109 20 97/64 98
04/30/24 17:33 04/30/24 17:33 04/30/24 17:33 04/30/24 17:33 04/30/24 17:33
Last Documented Vital Signs
Temp Pulse Resp BP Pulse Ox
98.7 F 96 25 113/83 96
04/30/24 17:33 04/30/24 21:30 04/30/24 21:30 04/30/24 20:38 04/30/24 21:00
MDM/Problems Addressed
MDM/Problems Addressed:
48-year-old male presenting to the emergency department today with a described seizure from his nursing staff. Vital signs are initially mildly tachycardic but below here with to the 90s does have chronic A-fib and is on Coumadin in therapeutic
range labs otherwise without emergent findings labs consistent with end-stage renal disease at his baseline potassium slightly low. Otherwise head CT normal chest x-ray without emergent findings EKG without emergent findings. Stable for outpatient
close follow-up with neurology for further treatment and management of potential seizure-like activity.
*Critical Care Note
Total Time (30-74mins, 75-104mins- exclusive of procedures): Not Applicable
ED Attending Note
-
Portions of this chart may have been created with voice recognition software.� Occasional wrong word or��sound alike� substitutions may have occurred due to the inherent limitations of voice recognition software.
Discharge Plan
Departure
Patient Disposition: Home (Routine Discharge)
Date of Disposition: 04/30/24
Time of Disposition: 21:56
Patient with high blood pressure during this ER visit?: No
Condition: Good
Covid-19: Not Applicable
Discharge Problem:
Seizure
Instructions: Seizures, Adult (DC)
Prescriptions:
No Action
gabapentin 300 MG capsule
300 mg PO HS
polyethylene glycol 3350 17 GRAMS powder in packet
17 grams PO SUTUTHSA PRN (Reason: constipation)
Rx Instructions:
10/14/2023, take in the morning.
sevelamer carbonate 800 MG tablet
800 mg PO MEALS
liothyronine 25 MICROGRAM tablet
75 mcg PO DAILY
atorvastatin 20 MG tablet
20 mg PO HS
levothyroxine 300 MCG tablet
300 mcg PO DAILY
pantoprazole 40 MG tablet,delayed release (DR/EC)
40 mg PO DAILY
bisacodyl [OneLAX Bisacodyl] 10 MG suppository
10 mg [place] DAILYPRN PRN (Reason: constipation)
metoprolol succinate 25 mg tablet extended release 24 hr
25 mg PO MOWEFR@2200
Rx Instructions:
10/14/2023, take at bedtime on MoWeFr.
metoprolol succinate 25 mg tablet extended release 24 hr
25 mg PO SUTUTHSA
Rx Instructions:
10/14/2023, take BID on Sundays, Tuesdays, , and Saturdays.
budesonide 0.25 mg/2 mL Suspension For Nebulization
0.25 mg INHALATION R [id number] PRN (Reason: SOB/wheezing)
benzonatate [Tessalon Perles] 100 mg Capsule
100 mg PO Q8HPRN PRN (Reason: cough)
albuterol sulfate [ProAir HFA] 90 mcg/actuation Hfa Aerosol Inhaler
2 puff INHALATION R Q4HPRN PRN (Reason: asthma)
sennosides [senna] 8.6 mg Tablet
8.6 mg PO HS
warfarin [Coumadin] 2 mg Tablet
11 mg PO QPM
Nephrocaps 1 mg Capsule
1 cap PO HS
midodrine 10 mg Tablet
10 mg PO Q6H
Rx Instructions:
10/14/2023, hold for SBP>=150.
bupropion HCl [Wellbutrin XL] 300 mg Tablet Extended Release 24 Hr
300 mg PO MOWEFR@2200
Rx Instructions:
10/14/2023, take at bedtime on MoWeFr.
acetaminophen 325 MG tablet
650 mg PO Q4HPRN PRN (Reason: mild pain/temp>100F)
tramadol 50 mg tablet
50 mg PO Q6HPRN PRN (Reason: moderate pain)
prednisone 10 mg Tablet
See Rx Instructions .ROUTE .COMPLEX Qty: 30 0RF
Rx Instructions:
Take By Mouth:
40 mg daily x3 days, 30 mg daily x3 days,
20 mg daily x3 days, 10 mg daily x3 days.
Referrals:
William Bellamy I., [Family Provider] -
Arnaldo West MD [Active] - Follow up in 5-7 days
Activity Restrictions/Additional Instructions:
You came to the emergency department today with concerns after a possible seizure. Here your reassuring assessment. Please follow-up closely with neurology for further recommendation. Return to the emergency department for any worsening, new or
concerning symptoms.
Interventions
Interventions:
*Risk Screen - Suicide Last Done: 04/30/24 17:33
*General Assessment Last Done: 04/30/24 18:52
*Neglect/Abuse Screening Last Done: 04/30/24 17:33
ED- Fall Risk Assessment Last Done: 04/30/24 17:44
*ED COVID-19 Vaccine History Last Done: 04/30/24 17:33
ED- Cardiac Assessment Last Done: 04/30/24 17:44
ED- Neurological Assessment Last Done: 04/30/24 17:44
ED- Pulmonary Assessment Last Done: 04/30/24 17:44
Discharge Date and Time
Print Language: MAORI
[2024-05-01 00:14] VITALS: BP 78/57
[2024-05-01] MEDS: ProAmatine 10 MG PO (00:20)
[2024-05-01 00:21] VITALS: BP 83/65
== END 2024-05-01 00:35 | disposition home or self-care (01) ==
LOC: EMR 17:29
PROVIDERS: Physician Assistant; EMERGENCY PHYSICIAN Student in an Organized Health Care Education/Training Program; FAMILY PHYSICIAN Internal Medicine
DX: R56.9 Unspecified convulsions (principal); I48.91 Unspecified atrial fibrillation; N18.6 End stage renal disease; Z79.01 Long term (current) use of anticoagulants; Z87.891 Personal history of nicotine dependence
CPT/HCPCS: 99285; 70450; 71046; 80053; 85025; 85610; 93005

== ENCOUNTER → 2024-05-31 09:00 | Outpatient (REF) | payer MEDICARE, OTHER, SELFPAY | LOC: DHSLP 09:00 | PROVIDERS: ATTENDING PHYSICIAN Internal Medicine | DX: G47.31 Primary central sleep apnea (principal); G47.33 Obstructive sleep apnea (adult) (pediatric); R09.02 Hypoxemia | CPT/HCPCS: 95811 ==

== ENCOUNTER → 2024-07-12 07:20 | Outpatient (REF) | payer MEDICARE, OTHER, SELFPAY | LOC: EEG 07:20 | PROVIDERS: ATTENDING PHYSICIAN Specialist; FAMILY PHYSICIAN Internal Medicine | DX: G40.209 Localization-related (focal) (partial) symptomatic epilepsy and epileptic syndromes with complex partial seizures, not intractable, without status epilepticus (principal) | CPT/HCPCS: 95816 ==

== ENCOUNTER 2024-09-07 08:54 | Emergency (ER) | payer MEDICARE, OTHER, SELFPAY ==
[2024-09-07 09:07] VITALS: BP 101/63
[2024-09-07 10:11] VITALS: BP 104/63
--- NOTE | 2024-09-07 10:15 | EDRN ---
No Thrill noted on L HD catheter site
--- NOTE | 2024-09-07 10:18 | ED.GENMED ---
History of Present Illness
General
Chief Complaint: Skin Problem
Time Seen by Provider: 09/07/24 10:08
History of Present Illness
History of Present Illness:
48-year-old with history of end-stage renal disease on dialysis presents to the emergency department due to mild bleeding from his fistula site with lack of thrill. Was unable to receive dialysis today due to lack of palpable thrill. He denies
other complaints. He is anticoagulated on warfarin
Past History
Past History
ED Past Medical History: Arrthythmia (Atrial fibrillation), Asthma, HTN, Hypercholesterolemia, NIDDM, [place], Renal failure (End stage.), Valvular disease, Hypothyroidism and Other (Acute and chronic respiratory failure, sepsis, endocarditis, mitral
valve, depressive episodes, anemia, morbid obesity, pulmonary hypertension, Pulmonary edema, Colitis, GI bleeding. Dialysis, Ulcers)
ED Past Surgical History: Cardiac (Heart valve prosthesis) and Other
Social History
Tobacco: Former smoker
Alcohol: Occasional
Drug: None
Personal:
Living: long term ( [employer])
Employment: Not employed
Family History
Family History: Hypertension
Review of Systems
Review of Systems
Allergies reviewed?: Yes
All Other Systems: ROS reviewed and negative except as documented in HPI and ROS
Phy Exam
Physical Exam
Physical Exam:
GEN: Well appearing, NAD, WDWN
HEENT: Oral mucosa moist, no scleral icterus
Cardiac: Regular rate
Lung: No respiratory distress, no tachypnea
MSK: No gross deformity or injuries. Left upper extremity dialysis fistula with no palpable thrill
Skin: Good color, no pallor or jaundice, no rashes
Neuro: AO x3, moves all extremities freely
Psych: Calm, cooperative
Course
Orders/Labs/Results
Orders:
Orders
09/07/24 10:17
US Hemodialysis Graft Urgent
Comment:
Reason For Exam: loss of thrill LUE
09/07/24 11:05
Complete Blood Count/With Diff Urgent
09/07/24 12:42
Comprehensive Metabolic Panel Urgent
09/07/24 12:46
Prothrombin Time Urgent
Abnormal Lab Results
09/07/24 09/07/24 09/07/24
11:05 12:42 12:46
RBC 3.57 L 10^6/uL
(4.70-6.10)
Hgb 9.7 L g/dL
(13.0-18.0)
Hct 30.4 L %
(39.0-52.0)
MCHC 31.9 L g/dL
(33.0-37.0)
RDW 18.6 H %
(11.5-14.5)
MPV 10.5 H fL
(7.4-10.4)
Absolute Lymphs (auto) 0.5 L 10^3/uL
(1.2-3.4)
Neutrophils % 82.3 H %
(42.2-75.2)
Lymphocytes % 8.1 L %
(20.5-51.1)
PT 33.9 H Sec
(11.4-14.6)
Chloride 96 L mmol/L
(98-107)
BUN 42 H mg/dl
(9-20)
Creatinine 8.3 H* mg/dL
(0.7-1.3)
Glucose 112 H mg/dl
(70-99)
09/07/24 11:05
09/07/24 12:42
Vital Signs
Initial and Last Documented VS:
Initial Vital Signs
Temp Pulse Resp BP Pulse Ox
98.0 F 91 18 101/63 94
09/07/24 09:07 09/07/24 09:07 09/07/24 09:07 09/07/24 09:07 09/07/24 09:07
Last Documented Vital Signs
Temp Pulse Resp BP Pulse Ox
98.0 F 85 16 96/64 99
09/07/24 09:07 09/07/24 15:30 09/07/24 15:30 09/07/24 15:00 09/07/24 14:45
MDM/Problems Addressed
MDM/Problems Addressed:
Ultrasound shows a patent Fistula. Bleeding resolved with application of Surgicel and loose gauze wrap. Pathology was able to communicate with the patient's dialysis clinic for dialysis treatment tomorrow. Vascular did consult on the patient and
will schedule for an outpatient arteriogram as flow appears to be diminished.
*Critical Care Note
Total Time (30-74mins, 75-104mins- exclusive of procedures): Not Applicable
ED Attending Note
-
Portions of this chart may have been created with voice recognition software.� Occasional wrong word or��sound alike� substitutions may have occurred due to the inherent limitations of voice recognition software.
Discharge Plan
Departure
Patient Disposition: Home (Routine Discharge)
Date of Disposition: 09/07/24
Time of Disposition: 14:50
Patient with high blood pressure during this ER visit?: No
Discharge Problem:
Complication of arteriovenous dialysis fistula
Prescriptions:
No Action
gabapentin 300 MG capsule
300 mg PO HS
polyethylene glycol 3350 17 GRAMS powder in packet
17 grams PO SUTUTHSA
sevelamer carbonate 800 MG tablet
800 mg PO MEALS
liothyronine 25 MICROGRAM tablet
75 mcg PO DAILY
atorvastatin 20 MG tablet
20 mg PO HS
levothyroxine 300 MCG tablet
300 mcg PO DAILY
pantoprazole 40 MG tablet,delayed release (DR/EC)
40 mg PO DAILY
bisacodyl [OneLAX Bisacodyl] 10 MG suppository
10 mg [place] DAILYPRN PRN (Reason: constipation)
metoprolol succinate 25 mg tablet extended release 24 hr
25 mg PO MOWEFR@2200
metoprolol succinate 25 mg tablet extended release 24 hr
25 mg PO SUTUTHSA@0800,1999
Rx Instructions:
09/07/24, take BID on Sundays, Tuesdays, , and Saturdays.
budesonide 0.25 mg/2 mL Suspension For Nebulization
0.25 mg INHALATION R [id number] PRN (Reason: SOB/wheezing)
benzonatate [Tessalon Perles] 100 mg Capsule
100 mg PO Q8HPRN PRN (Reason: cough)
sennosides [senna] 8.6 mg Tablet
8.6 mg PO HS
warfarin [Coumadin] 2 mg Tablet
9 mg PO SUMOWEFRSA
Nephrocaps 1 mg Capsule
1 cap PO HS
midodrine 10 mg Tablet
10 mg PO Q6H
Rx Instructions:
09/07/24, hold for SBP>=150.
acetaminophen 325 MG tablet
650 mg PO Q4HPRN PRN (Reason: mild pain/temp>100F)
tramadol 50 mg tablet
50 mg PO Q6HPRN PRN (Reason: moderate pain)
lamotrigine [Lamictal] 150 mg Tablet
150 mg PO BID
cetirizine 10 mg Tablet
10 mg PO DAILY
warfarin 10 mg Tablet
10 mg PO TUTH
melatonin 3 mg Tablet
6 mg PO HSPRN PRN (Reason: insomnia)
trazodone 100 mg Tablet
100 mg PO HS
albuterol sulfate [ProAir HFA] 90 mcg/actuation Hfa Aerosol Inhaler
2 puff INHALATION R Q4HPRN PRN (Reason: asthma)
bupropion HCl 150 mg Tablet Extended Release 24 Hr
150 mg PO MOWEFR
Arnuity Ellipta 200 mcg/actuation Blister With Device
1 inh INHALATION R DAILY
Referrals:
Mia,William I., DO [Family Provider] -
Phoenix Mayer MD [Active] - (Access AV fistula at HD, if having issues with access please call office or return to ER)
Activity Restrictions/Additional Instructions:
He should receive dialysis tomorrow, please coordinate with his outpatient dialysis facility
Interventions
Interventions:
*Risk Screen - Suicide Last Done: 09/07/24 15:53
*General Assessment Last Done: 09/07/24 15:53
*Neglect/Abuse Screening Last Done: 09/07/24 15:53
ED- Fall Risk Assessment Last Done: 09/07/24 15:53
*ED COVID-19 Vaccine History Last Done: 09/07/24 15:53
*Nursing Disposition Last Done: 09/07/24 15:53
ED-Skin Assessment Last Done: 09/07/24 13:04
Discharge Date and Time
Discharge Date/Time: 09/07/24 16:02
Print Language: [email or web address]
[2024-09-07 11:19] LABS: % Basophils 0.8 % (0-2); % Eosinophils 1.4 % (0-6); % Immature Granulocytes 0.3 % (0-0.5); % Lymphocytes 8.1 % (20.5-51.1); % Monocytes 7.1 % (1.7-9.3); % Neutrophils 82.3 % (42.2-75.2); Absolute Basophils 0.1 10^3/uL (0-0.2); Absolute Eosinophils 0.1 10^3/uL (0-0.7); Absolute Lymphocytes 0.5 10^3/uL (1.2-3.4); Absolute Monocytes 0.5 10^3/uL (0.1-0.6); Absolute Neutrophils 5.4 10^3/uL (1.4-6.5); Hematocrit 30.4 % (39.0-52.0); Hemoglobin 9.7 g/dL (13.0-18.0); Mean Corp Hgb Conc. 31.9 g/dL (33.0-37.0); Mean Corpuscular Hgb 27.2 pg (27.0-31.0); Mean Corpuscular Volume 85.2 fL (80.0-94.0); Mean Platelet Volume 10.5 fL (7.4-10.4); Nucleated Red Blood Cells % 0 % (-); Platelet Count 186 10^3/uL (130-400); Red Blood Cell Count 3.57 10^6/uL (4.70-6.10); Red Cell Dist. Width 18.6 % (11.5-14.5); White Blood Cell Count 6.5 10^3/uL (4.8-10.8)
[2024-09-07 12:39] VITALS: BP 94/62
[2024-09-07 13:12] LABS: INR 3.35; PT 33.9 Sec (11.4-14.6)
[2024-09-07 13:20] LABS: ALT (SGPT) 25 U/L (0-50); AST (SGOT) 31 U/L (17-59); Albumin 4.3 g/dl (3.5-5.0); Alkaline Phosphatase 112 U/L (38-126); Blood Urea Nitrogen 42 mg/dl (9-20); Calcium 9.9 mg/dl (8.4-10.2); Carbon Dioxide 26 mmol/L (22-30); Chloride 96 mmol/L (98-107); Glucose 112 mg/dl (70-99); Potassium 4.1 mmol/L (3.5-5.1); Sodium 137 mmol/L (135-145); Total Bilirubin 1.1 mg/dl (0.2-1.3); Total Protein 7.5 g/dl (6.3-8.2); eGFR 7.23
[2024-09-07 14:03] VITALS: BP 114/58
[2024-09-07 15:00] VITALS: BP 96/64
== END 2024-09-07 16:02 ==
LOC: EMR 08:54
PROVIDERS: Physician Assistant; EMERGENCY PHYSICIAN Emergency Medicine; FAMILY PHYSICIAN Internal Medicine
DX: T82.838A Hemorrhage due to vascular prosthetic devices, implants and grafts, initial encounter (principal); Y83.8 Other surgical procedures as the cause of abnormal reaction of the patient, or of later complication, without mention of misadventure at the time of the procedure; I12.0 Hypertensive chronic kidney disease with stage 5 chronic kidney disease or end stage renal disease; E11.22 Type 2 diabetes mellitus with diabetic chronic kidney disease; N18.6 End stage renal disease; Z99.2 Dependence on renal dialysis; I48.91 Unspecified atrial fibrillation; Z79.01 Long term (current) use of anticoagulants; E78.00 Pure hypercholesterolemia, unspecified; I27.20 Pulmonary hypertension, unspecified; J45.909 Unspecified asthma, uncomplicated; Z87.891 Personal history of nicotine dependence
CPT/HCPCS: 99284; 80053; 85025; 85610; 93990

== ENCOUNTER 2024-09-10 18:43 | Inpatient (IN) | payer MEDICARE, OTHER, SELFPAY ==
[2024-09-10] VITALS (28 sets, daily range): BP systolic 77–97; BP diastolic 40–68; BMI 32.6; BMI 31.5
--- NOTE | 2024-09-10 13:51 | ED.GENMED ---
History of Present Illness
<Yasir Garg PA-C - Last Filed: 09/10/24 16:33>
General
Chief Complaint: Catheter/Tube Problem
Source: patient
Time Seen by Provider: 09/10/24 13:36
History of Present Illness
History of Present Illness:
48-year-old male with past medical history of previous CVA, COPD on chronic O2, atrial fibrillation, CHF, previous ME, chronic kidney disease (dialysis Tuesday, Tuesday, Tuesday) presenting to the ER for evaluation after he finished his dialysis
session today and the AV fistula site continued to bleed despite continuous pressure. Patient states that the same thing occurred on Tuesday but that the bleeding was able to resolve on Tuesday. Patient is on Coumadin, unsure of last INR. His other
concern is that he noticed pain to the left lateral hip and a large bruise which patient is overall unsure as to how this happened. He does state he fell about 2 weeks ago while getting out of bed but states did not have this bruise following.
Denies any head injury, LOC, headaches, vomiting, vision changes, any other areas of ecchymosis or any other concerns.
Past History
<Yasir Garg PA-C - Last Filed: 09/10/24 16:33>
Past History
ED Past Medical History: Arrthythmia (Atrial fibrillation), Asthma, HTN, Hypercholesterolemia, NIDDM, ME, Renal failure (End stage.), Valvular disease, Hypothyroidism and Other (Acute and chronic respiratory failure, sepsis, endocarditis, mitral
valve, depressive episodes, anemia, morbid obesity, pulmonary hypertension, Pulmonary edema, Colitis, GI bleeding. Dialysis, Ulcers)
ED Past Surgical History: Cardiac (Heart valve prosthesis) and Other
Social History
Tobacco: Former smoker
Alcohol: Occasional
Drug: None
Personal:
Living: longterm ( [facility])
Employment: Not employed
Family History
Family History: Hypertension
Review of Systems
<Yasir Garg PA-C - Last Filed: 09/10/24 16:33>
Review of Systems
All Other Systems: ROS reviewed and negative except as documented in HPI and ROS
Phy Exam
<Yasir Garg PA-C - Last Filed: 09/10/24 16:33>
Physical Exam
Physical Exam:
GENERAL: Alert , in no apparent distress, appears older than stated age
HEAD: NCAT
EYE: conjunctiva clear
NECK: Supple
ENT: o/p clr, mmm.
CARDIAC: Regular rate and rhythm
LUNGS: Clear breath sounds bilaterally, no acute respiratory distress, no wheezes/rales/rhonchi
ABDOMEN/PELVIS: large, tender, ecchymotic hematoma left lateral hip/pelvis. Very ttp. pain with ROM. Otherwise NVI
NEUROLOGICAL: Alert and oriented
SKIN: Warm and dry, skin intact.
MUSCULOSKELETAL: LUE: AV fistula site identified with large wrap, fresh blood noted. Wrap removed and small oozing from distal most portion of fistula noted. very slight ooze proximally to this as well. unable to palpate thrill. Fingertips cool to
touch but patient able to ROM entirety of extremity and sensation intact and equal to RUE.
PSYCH: Normal and appropriate interaction.
Scores
<Yasir Garg PA-C - Last Filed: 09/10/24 16:33>
Heart Failure Risk
Heart Failure Risk Score: Not Applicable
Heart Score for Chest Pain Patients
STEMI patient?: Not applicable
Withdrawal Assessment of Alcohol
Withdrawal Assessment Completed?: Not applicable
Course
<PARRISH Parra Last Filed: 09/10/24 16:33>
Orders/Labs/Results
Orders:
Orders
09/10/24 13:46
CT Abd/pelvis W Iv Cont Urgent
Comment:
Reason For Exam: large left buttock hematoma, on coumadin
IV Insert/Care/Rem.- Treatment PRN
09/10/24 14:01
Complete Blood Count/With Diff Urgent
Comprehensive Metabolic Panel Urgent
PTT Urgent
Prothrombin Time Urgent
09/10/24 14:09
0.9% Sodium Chloride 500 ml [Nss] 500 ml IV BOLUS
09/10/24 14:14
US Hemodialysis Graft Urgent
Comment:
Reason For Exam: no palpable thrill, r/o clot
09/10/24 14:19
Type+Screen Urgent
09/10/24 14:24
Blood Bank Products [* Blood Bank Products] Urgent
Blood Bank Products: *Packed RBC Leuko(PRBC's)
Quantity: 2
Transfuse Today: Yes
Reason: Bleeding
Abnormal Lab Results
09/10/24 09/10/24
14:01 14:19
WBC 12.0 H 10^3/uL
(4.8-10.8)
RBC 2.60 L 10^6/uL
(4.70-6.10)
Hgb 7.2 L D g/dL
(13.0-18.0)
Hct 22.0 L %
(39.0-52.0)
MCHC 32.7 L g/dL
(33.0-37.0)
RDW 17.9 H %
(11.5-14.5)
Abs Immat Gran (auto) 0.1 H 10^3/uL
(0-0.05)
Absolute Neuts (auto) 10.5 H 10^3/uL
(1.4-6.5)
Absolute Lymphs (auto) 0.7 L 10^3/uL
(1.2-3.4)
Neutrophils % 87.4 H %
(42.2-75.2)
Lymphocytes % 5.9 L %
(20.5-51.1)
PT 37.9 H Sec
(11.4-14.6)
APTT 82.2 H Sec
(23.4-35.0)
Potassium 3.4 L mmol/L
(3.5-5.1)
Chloride 94 L mmol/L
(98-107)
Creatinine 3.3 H mg/dL
(0.7-1.3)
Glucose 150 H mg/dl
(70-99)
Alkaline Phosphatase 131 H U/L
(38-126)
Crossmatch IS Only See Detail
09/10/24 14:01
09/10/24 14:01
Vital Signs
Initial and Last Documented VS:
Initial Vital Signs
Temp Pulse Resp BP Pulse Ox
98.2 F 98 18 92/57 97
09/10/24 13:24 09/10/24 13:24 09/10/24 13:24 09/10/24 13:24 09/10/24 13:24
Last Documented Vital Signs
Temp Pulse Resp BP Pulse Ox
98.6 F 98 24 97/55 100
09/10/24 16:12 09/10/24 16:12 09/10/24 16:12 09/10/24 16:12 09/10/24 16:12
[place];Shamar Goodson DO - Last Filed: 09/10/24 14:25>
Orders/Labs/Results
Orders:
Orders
09/10/24 13:46
CT Abd/pelvis W Iv Cont Urgent
Comment:
Reason For Exam: large left buttock hematoma, on coumadin
IV Insert/Care/Rem.- Treatment PRN
09/10/24 14:01
Complete Blood Count/With Diff Urgent
Comprehensive Metabolic Panel Urgent
PTT Urgent
Prothrombin Time Urgent
09/10/24 14:09
0.9% Sodium Chloride 500 ml [Nss] 500 ml IV BOLUS
09/10/24 14:14
US Hemodialysis Graft Urgent
Comment:
Reason For Exam: no palpable thrill, r/o clot
09/10/24 14:19
Type+Screen Urgent
09/10/24 14:24
Blood Bank Products [* Blood Bank Products] Urgent
Blood Bank Products: *Packed RBC Leuko(PRBC's)
Quantity: 2
Transfuse Today: Yes
Reason: Bleeding
Abnormal Lab Results
09/10/24 09/10/24
14:01 14:19
WBC 12.0 H 10^3/uL
(4.8-10.8)
RBC 2.60 L 10^6/uL
(4.70-6.10)
Hgb 7.2 L D g/dL
(13.0-18.0)
Hct 22.0 L %
(39.0-52.0)
MCHC 32.7 L g/dL
(33.0-37.0)
RDW 17.9 H %
(11.5-14.5)
Abs Immat Gran (auto) 0.1 H 10^3/uL
(0-0.05)
Absolute Neuts (auto) 10.5 H 10^3/uL
(1.4-6.5)
Absolute Lymphs (auto) 0.7 L 10^3/uL
(1.2-3.4)
Neutrophils % 87.4 H %
(42.2-75.2)
Lymphocytes % 5.9 L %
(20.5-51.1)
PT 37.9 H Sec
(11.4-14.6)
APTT 82.2 H Sec
(23.4-35.0)
Potassium 3.4 L mmol/L
(3.5-5.1)
Chloride 94 L mmol/L
(98-107)
Creatinine 3.3 H mg/dL
(0.7-1.3)
Glucose 150 H mg/dl
(70-99)
Alkaline Phosphatase 131 H U/L
(38-126)
Crossmatch IS Only See Detail
09/10/24 14:01
09/10/24 14:01
Vital Signs
Initial and Last Documented VS:
Initial Vital Signs
Temp Pulse Resp BP Pulse Ox
98.2 F 98 18 92/57 97
09/10/24 13:24 09/10/24 13:24 09/10/24 13:24 09/10/24 13:24 09/10/24 13:24
Last Documented Vital Signs
Temp Pulse Resp BP Pulse Ox
98.6 F 98 24 97/55 100
09/10/24 16:12 09/10/24 16:12 09/10/24 16:12 09/10/24 16:12 09/10/24 16:12
<Yasir Garg PA-C - Last Filed: 09/10/24 16:33>
MDM/Problems Addressed
Differential Diagnosis Includes:
fistula complication, anemia, supratherapeutic INR, hematoma, retroperitoneal bleed
MDM/Problems Addressed:
48-year-old male presenting to the ER for 2 separate concerns. First concern is bleeding AV fistula. Had similar event this past Tuesday with bleeding able to be controlled with pressure. Today there is slight oozing from 2 sites to the left AV
fistula. No thrill appreciated. Will contact vascular for assessment. In the meantime I did place 2 nonadherent gauze pads, self adhering wrap and an Felice wrap overlying to hold good pressure. Due to the large hematoma will obtain CT scan to
evaluate for any possible active bleeding given the size of the hematoma, patient's hypotension and concern for possible active bleeding.
Chronic conditions affecting care: Kidney disease
<Yasir Garg PA-C - Last Filed: 09/10/24 16:33>
*Radiology
Radiology exam reviewed: radiology read reviewed
*Pulse Oximetry
Patient hypoxic: no
*Shoe Puller Interpretation
Rate: normal
Rhythm: sinus
*Critical Care Note
Total Time (30-74mins, 75-104mins- exclusive of procedures): 30
comment:
Critical care statement: A total of 40 minutes of critical care time was provided for this patient. This includes management of unstable vital signs, evaluation of the patient at bedside, reviewing the patient's pertinent medical records, discussion
with consultants, review of old EKGs and review of pertinent medical records. This time with separate from time utilized to perform the aforementioned documented procedures
Data Reviewed
Review of Other/Old Records Reveals: Labs and Records
Source: patient and records
<Yasir Garg PA-C - Last Filed: 09/10/24 16:33>
Patient Management
Discussion with other providers: Hospitalist and [employer] System Administrator
Escalation/DeEscalation of care consider admission/obs:
CT of the abdomen pelvis shows left gluteal hematoma. No active extravasation. Ultrasound findings also noted. Patient consented for 2 units packed red blood cells given his anemia. Given no active extravasation decision to reverse patient's
anticoagulation was held and deferred to hospitalist team. Patient will be admitted for trending of his hemoglobin and close observation. Hospitalist team accepts for continued evaluation and treatment. Vascular team to follow. They state they
will consider fistulogram while patient is admitted.
ED Attending Note
<Yasir Garg PA-C - Last Filed: 09/10/24 16:33>
-
Portions of this chart may have been created with voice recognition software.� Occasional wrong word or��sound alike� substitutions may have occurred due to the inherent limitations of voice recognition software.
<Shamar Goodson DO - Last Filed: 09/10/24 14:25>
ED Attending Note
Patient seen and examined by attending physician: Yes
I performed a history and physical exam of patient and discussed management with resident, I reviewed resident's note and agree with documented findings and plan of care.: Yes
ED Attending Note:
I agree with Mg's note.
48-year-old male presents to the emergency room for bleeding from his left dialysis fistula. Patient seen for similar symptoms few days ago during his last dialysis treatment. In addition the patient was found to have a very painful area on his
left hip. Moves no injury there. Patient did complete his dialysis treatment today for him to stop there. He always has low blood pressure following dialysis he tells us.
General: Awake, Alert, Oriented X3. Appears chronically ill
Vitals: unremarkable
Head: Atraumatic
Eyes: Pupils equal, EOMI
Neck: Trachea midline
Lungs: Clear and equal b/l
Heart: Regular rate, no murmurs
Abd: Soft, Nontender, No pulsatile mass
Neuro: Grossly nonfocal
Skin: Warm, dry, no rash
Extremities: pulses equal b/l, no edema. Large area of swelling which is markedly tender noted left hip. Area is estimated to be 20cm x 15cm
Patient presents with bleeding from hematoma site. He is anticoagulated on Coumadin. Concern he may be over anticoagulated. Patient's hemoglobin found to have dropped markedly from just 3 days ago. Given this large area of swelling and
tenderness suspect a large hematoma. 2 units of blood ordered. Small fluid bolus given for hypotension. Plan on CT with IV contrast to confirm this area swelling is in fact a hematoma and to see if there is any active extravasation.
Discharge Plan
Departure
Patient Disposition: Admit
Date of Disposition: 09/10/24
Time of Disposition: 16:12
Presentation/result/management discussed w/ accepting MD/DO: Hospitalist
Discharge Problem:
Complication of AV dialysis fistula, Hematoma of left thigh, Anemia, CKD (chronic kidney disease)
Prescriptions:
No Action
gabapentin 300 MG capsule
300 mg PO HS
polyethylene glycol 3350 17 GRAMS powder in packet
17 grams PO SUTUTHSA
sevelamer carbonate 800 MG tablet
800 mg PO MEALS
liothyronine 25 MICROGRAM tablet
75 mcg PO DAILY
atorvastatin 20 MG tablet
20 mg PO HS
levothyroxine 300 MCG tablet
300 mcg PO DAILY
pantoprazole 40 MG tablet,delayed release (DR/EC)
40 mg PO DAILY
bisacodyl [OneLAX Bisacodyl] 10 MG suppository
10 mg DC DAILYPRN PRN (Reason: constipation)
metoprolol succinate 25 mg tablet extended release 24 hr
25 mg PO MOWEFR@2199
metoprolol succinate 25 mg tablet extended release 24 hr
25 mg PO SUTUTHSA@0800,1999
budesonide 0.25 mg/2 mL Suspension For Nebulization
0.25 mg INHALATION R [id number] PRN (Reason: SOB/wheezing)
benzonatate [Tessalon Perles] 100 mg Capsule
100 mg PO Q8HPRN PRN (Reason: cough)
sennosides [senna] 8.6 mg Tablet
8.6 mg PO HS
warfarin [Coumadin] 2 mg Tablet
9 mg PO SUMOWEFRSA
Nephrocaps 1 mg Capsule
1 cap PO HS
midodrine 10 mg Tablet
10 mg PO Q6H
Rx Instructions:
09/10/24, hold for SBP>=150.
acetaminophen 325 MG tablet
650 mg PO Q4HPRN PRN (Reason: mild pain/temp>100F)
tramadol 50 mg tablet
50 mg PO Q6HPRN PRN (Reason: moderate pain)
lamotrigine [Lamictal] 150 mg Tablet
150 mg PO BID
cetirizine 10 mg Tablet
10 mg PO DAILY
warfarin 10 mg Tablet
10 mg PO TUTH
melatonin 3 mg Tablet
6 mg PO HSPRN PRN (Reason: insomnia)
trazodone 100 mg Tablet
100 mg PO HS
albuterol sulfate [ProAir HFA] 90 mcg/actuation Hfa Aerosol Inhaler
2 puff INHALATION R Q4HPRN PRN (Reason: asthma)
Arnuity Ellipta 200 mcg/actuation Blister With Device
1 inh INHALATION R DAILY
bupropion HCl [Wellbutrin SR] 150 mg Tablet Sustained-Release 12 Hr
150 mg PO MOWEFR
Referrals:
William Bellamy I., DO [Family Provider] -
Interventions
Interventions:
*Risk Screen - Suicide Last Done: 09/10/24 13:24
*General Assessment Last Done: 09/10/24 14:07
*Neglect/Abuse Screening Last Done: 09/10/24 13:24
ED- Fall Risk Assessment Last Done: 09/10/24 13:42
*ED COVID-19 Vaccine History Last Done: 09/10/24 14:10
MA-Arjhns-Cgtpseaygv Assessment Last Done: 09/10/24 14:10
ED-Male Genitourinary Assessment Last Done: 09/10/24 14:10
Discharge Date and Time
Print Language: SLOVENIAN
[2024-09-10 14:14] LABS: % Basophils 0.4 % (0-2); % Eosinophils 0.5 % (0-6); % Immature Granulocytes 0.5 % (0-0.5); % Lymphocytes 5.9 % (20.5-51.1); % Monocytes 5.3 % (1.7-9.3); % Neutrophils 87.4 % (42.2-75.2); Absolute Basophils 0.1 10^3/uL (0-0.2); Absolute Eosinophils 0.1 10^3/uL (0-0.7); Absolute Immature Granulocytes 0.1 10^3/uL (0-0.05); Absolute Lymphocytes 0.7 10^3/uL (1.2-3.4); Absolute Monocytes 0.6 10^3/uL (0.1-0.6); Absolute Neutrophils 10.5 10^3/uL (1.4-6.5); Hemoglobin 7.2 g/dL (13.0-18.0); Mean Corp Hgb Conc. 32.7 g/dL (33.0-37.0); Mean Corpuscular Hgb 27.7 pg (27.0-31.0); Mean Corpuscular Volume 84.6 fL (80.0-94.0); Mean Platelet Volume 9.8 fL (7.4-10.4); Nucleated Red Blood Cells % 0 % (-); Platelet Count 231 10^3/uL (130-400); Red Cell Dist. Width 17.9 % (11.5-14.5)
[2024-09-10] MEDS: NSS 500 IV (14:15)
[2024-09-10 14:25] LABS: INR 3.85; PT 37.9 Sec (11.4-14.6)
[2024-09-10 14:27] LABS: APTT 82.2 Sec (23.4-35.0)
--- NOTE | 2024-09-10 14:30 | CON.VAS ---
Consultation
Consultation Request
Performing Provider: Leoncio
Reason for Consultation: Prolonged bleeding of fistula s/p HD
Medical History
-
Chief Complaint: Bleeding from AVF
History of Present Illness:
48-year-old male presenting to the ER from HD site for prolonged bleeding status post AVF access for HD. PMH ESRD on HD, RI, CVA, COPD on home O2, Valve replacement, afib on Coumadin. Patient states HD was successful but bleeding continued for 'too
long.' I saw this patient in our ER Tuesday for nonpalpable thrill at the fistula site. When I saw the patient on Tuesday his ultrasound showed a patent AV fistula and I was able to easily palpate a thrill at that time. BP is running low which he
comments is normal for him after HD. I ordered another ultrasound to rule out thrombosis of the fistula. Patient is on Coumadin with INR 3.8 today. Patient seen at bedside in the ER. I removed the dressing at the AVF site and he is no longer
bleeding, redressed at bedside.
Past Medical History
Past Medical History: Arrhythmias, Asthma, COPD, CVA, HTN, Hypercholesterolemia, Hypothyroidism, NIDDM, RI, Renal Failure, Seizures, Valvular Disease, Psychiatric and Other (Acute and chronic respiratory failure, sepsis, endocarditis, mitral valve,
depressive episodes, anemia, morbid obesity, pulmonary hypertension, Pulmonary edema, Colitis, GI bleeding. Dialysis, Ulcers)
Past Surgical History: Cardiac (Valve replacement) and Other (Left upper extremity AV fistula creation)
Social History
Tobacco: Former Smoker
Alcohol: Occasional
Living: Residential
Employment: Not Employed
Family History
Family History: Reviewed & Not Pertinent
Allergies / Home Medications
Allergy/AdvReac Type Severity Reaction Status Date / Time
dalteparin,porcine Allergy Unknown Verified 09/10/24 13:24
enoxaparin Allergy Unknown Verified 09/10/24 13:24
isosorbide Allergy Unknown Verified 09/10/24 13:24
meperidine Allergy Unknown Verified 09/10/24 13:24
piperacillin sodium Allergy Itching; Verified 09/10/24 13:24
[From Zosyn] Tolerated
AMOXICILLIN
shellfish derived Allergy ALLERGY-FISH Verified 09/10/24 13:24
EXCEPT TUNA
tazobactam sodium Allergy Itching Verified 09/10/24 13:24
[From Zosyn]
�Medication �Instructions �Recorded �Confirmed �Type
gabapentin 300 mg capsule 300 mg PO HS Pain 03/11/15 09/07/24 History
polyethylene glycol 3350 17 gram 17 grams PO SUTUTHSA constipation 02/23/17 09/07/24 History
oral powder packet
atorvastatin 20 mg tablet 20 mg PO HS High cholesterol 10/04/18 09/07/24 History
liothyronine 25 mcg tablet 75 mcg PO DAILY Thyroid 10/04/18 09/07/24 History
sevelamer carbonate 800 mg tablet 800 mg PO MEALS Kidney Disease 10/04/18 09/07/24 History
levothyroxine 300 mcg tablet 300 mcg PO DAILY Thyroid 01/16/20 09/07/24 History
pantoprazole 40 mg tablet,delayed 40 mg PO DAILY Gastrointestinal 01/17/20 09/07/24 History
release issue
bisacodyl 10 mg rectal suppository 10 mg DC DAILYPRN PRN constipation 10/20/21 09/07/24 History
(OneLAX Bisacodyl)
metoprolol succinate 25 mg 25 mg PO MOWEFR@2200 02/13/23 09/07/24 History
tablet,extended release 24 hr
metoprolol succinate 25 mg 25 mg PO SUTUTHSA@0800,2000 02/13/23 09/07/24 History
tablet,extended release 24 hr
acetaminophen 325 mg tablet 650 mg PO Q4HPRN PRN mild 10/14/23 09/07/24 History
pain/temp>100F
benzonatate 100 mg capsule 100 mg PO Q8HPRN PRN cough 10/14/23 09/07/24 History
budesonide 0.25 mg/2 mL suspension 0.25 mg inhalation R [id number] PRN 10/14/23 09/07/24 History
for nebulization SOB/wheezing
midodrine 10 mg tablet 10 mg PO Q6H 10/14/23 09/07/24 History
sennosides 8.6 mg tablet (senna) 8.6 mg PO HS 10/14/23 09/07/24 History
tramadol 50 mg tablet 50 mg PO Q6HPRN PRN moderate pain 10/14/23 09/07/24 History
vitamin B complex and vitamin C 1 cap PO HS 10/14/23 09/07/24 History
no.20-folic acid 1 mg capsule
warfarin 2 mg tablet 9 mg PO SUMOWEFRSA 10/14/23 09/07/24 History
albuterol sulfate 90 mcg/actuation 2 puff inhalation R Q4HPRN PRN 09/07/24 09/07/24 History
aerosol inhaler asthma
bupropion HCl 150 mg 24 hr tablet, 150 mg PO MOWEFR 09/07/24 09/07/24 History
extended release
cetirizine 10 mg tablet 10 mg PO DAILY 09/07/24 09/07/24 History
fluticasone furoate 200 1 inh inhalation R DAILY 09/07/24 09/07/24 History
mcg/actuation blister powder for
inhalation (Arnuity Ellipta)
lamotrigine 150 mg tablet 150 mg PO BID 09/07/24 09/07/24 History
(Lamictal)
melatonin 3 mg tablet 6 mg PO HSPRN PRN insomnia 09/07/24 09/07/24 History
trazodone 100 mg tablet 100 mg PO HS 09/07/24 09/07/24 History
warfarin 10 mg tablet 10 mg PO TUTH 09/07/24 09/07/24 History
Review of Systems
-
History Source: Patient
All other systems: Negative unless noted
Constitutional: Reports No Symptoms
EENT: Reports No Symptoms
Respiratory: Reports No Symptoms
Cardiac: Reports No Symptoms
Vascular: Denies Leg Pain / Claudication
Abdomen/GI: Reports No Symptoms
: Reports No Symptoms
Musculoskeletal: Reports Muscle Pain, Muscle Stiffness and Edema (left hip)
Skin: Reports Other (Bleeding at LUE avf- resolved)
Neurological: Reports No Symptoms
Physical Exam
Vital Signs
Temp Pulse Resp BP Pulse Ox
98.2 F 98 18 92/57 100
09/10/24 13:24 09/10/24 13:24 09/10/24 13:24 09/10/24 13:24 09/10/24 14:16
Lab Results
09/10/24 14:01
Physical Exam
General: No Apparent Distress
HEENT: Normocephalic and Atraumatic
Respiratory: Non Labored Respirations
Cardiac: Negative JVD
GI: Soft and Non Tender
Musculoskeletal: No Clubbing, No Cyanosis and Edema (Left him)
Skin: Other (LUE AVF site- bleeding resolved, no palpable thrill. Left hip- painful hematoma, skin intact)
Neuro: Awake, Alert and Oriented
Psych: Calm
Assessment / Plan
-
48-year-old male presenting to the ER from HD site for prolonged bleeding status post AVF access for HD.
Plan:
-AVF US pending
-Pt being admitted for low hgb, left hip hematoma, CT pending
-Will follow up with pt after US complete for plan, possible fistulagram on this admission
Data Reviewed
-
Labs: Labs Reviewed by me
[2024-09-10 14:50] LABS: ALT (SGPT) 23 U/L (0-50); AST (SGOT) 29 U/L (17-59); Albumin 4.2 g/dl (3.5-5.0); Alkaline Phosphatase 131 U/L (38-126); Blood Urea Nitrogen 17 mg/dl (9-20); Carbon Dioxide 29 mmol/L (22-30); Chloride 94 mmol/L (98-107); Glucose 150 mg/dl (70-99); Potassium 3.4 mmol/L (3.5-5.1); Sodium 141 mmol/L (135-145); Total Bilirubin 1.2 mg/dl (0.2-1.3); Total Protein 7.5 g/dl (6.3-8.2); eGFR 21.88
--- NOTE | 2024-09-10 17:15 | HPS.HSE ---
Addendum entered and electronically signed by Clarisa Garcia MD 09/10/24 19:28:
I personally performed a history and physical exam of the patient and discussed management with the resident. I reviewed the resident's note and agree with the documented findings and plan of care HPI/CC.
GENERAL: well developed, well nourished, obese male in no apparent distress
HEENT: NC/AT--baseline O2 NC in place
HEART: irreg irreg
LUNGS : clear to auscultation bilaterally
ABDOM: soft, nontender, nondistended, + bowel sounds
EXT: no cyanosis, clubbing, or edema--pain to palpation along left hip and upper thigh
NEUROLOGIC: grossly intact
: pt says makes NO urine
Acute blood loss anemia on anemia of chronic disease likely due to AV fistula bleeding--apprec vascular--US done in ED shows Focal velocity elevation identified at the arteriovenous anastomosis at 372 cm/s (ratio 3.6) which may suggest a greater
than 50% stenosis at this location--transfuse 2 units pRBC for HGB 7.2--serial H&H
Left hip hematoma status post fall--CT abdomen/pelvis Soft tissue stranding throughout the left gluteal/buttock region as well as numerous nodular foci largest measuring up to 7.9 cm most likely representing hematomas and likely exacerbated by
coumadin and INR of 3.8--hold coumadin tonight--serial H&H--Home dose tramadol, oxycodone 5 mg Q6--Bowel regimen with Colace, MiraLAX
ESRD on HD ([facility])--Consult nephrology--Evaluate if will need possible tunneled catheter due to AV fistula bleeding occurring twice.
Mechanical mitral valve replacement on coumadin--INR on presentation 3.85--Hold tonight's Coumadin dose--Check PT/INR in the a.m---INR goal 2.5�3.5--consider cards eval if needed
Chronic hypotension--Continue midodrine
Permanent atrial fibrillation--Continue rate control with metoprolol (add holding parameters)-Monitor hemoglobin
Chronic hypoxic respiratory failure on home O2--Currently at baseline O2 3L
Hypothyroidism--Continue on home regimen
DVT prophylaxis-- SCDs
CODE STATUS-- full code
Original Note:
Family Physician
-
Family Physician: William Bellamy
Chief Complaint
-
AV fistula bleeding
History of Present Illness
This is a 48-year-old male with past medical history of ESRD on HD, COPD on home O2 (baseline 3 L), CVA, MT, mechanical mitral valve replacement on Coumadin use, who resides at custodial presents to ER for evaluation of bleeding from AV
fistula site after hemodialysis session today. Patient is typically scheduled for hemodialysis Mondays, Wednesdays, Fridays for CKD. He reports he had a session today and after finishing the session, his AV fistula site continued to bleed despite
continuous pressure. He reports the same thing occurred on Tuesday prompting him to come for an evaluation to ED on Tuesday. Today reports the bleeding was uncontrolled despite continuous pressure, hence he decided to come to the ER for
evaluation. In addition patient reports mechanical fall on from his bed. He reports he fell on his left hip. He reports not feeling pain initially, but as the days progressed, he continued to feel pain in his left hip. He denied any
head injury, loss of consciousness before the fall, headaches, vomiting, vision changes. On presentation to ER, blood pressure was 92/57, pulse 99, respiratory rate 20, afebrile with O2 sats 100% on 3 L of oxygen. Laboratory results showed
hemoglobin 7.2, hematocrit 22.0, PT 27.9, INR 3.85, potassium 3.4, BUN 17, creatinine 3.3, EGFR 21.88.
Medical History
Past Medical History
Past Medical History: Reports Other (Asthma, COPD, chronic hypotension, hyperlipidemia, history of MT, ESRD on HD, mechanical mitral valve replacement on Coumadin, permanent atrial fibrillation, hypothyroidism, history of endocarditis, depression,
anemia, pulmonary hypertension, history of colitis)
Past Surgical History: Reports Other (Mechanical valve replacement in 1997, left upper extremity AV fistula placement, AICD placement and removal of AICD due to endocarditis)
Social History
Tobacco: Former Smoker (1 pack/day, quit in the )
Alcohol: Occasional
Drug: None
Living: Senior Living
Family History
Family History: Not pertinent
Allergies / Home Medications
Allergies reflects when Allergies were last updated in [facility].
Home Medications with original date entered in [facility]
Allergy/Medication List:
Allergies
Allergy/AdvReac Type Severity Reaction Status Date / Time
dalteparin,porcine Allergy Unknown Verified 09/10/24 13:24
enoxaparin Allergy Unknown Verified 09/10/24 13:24
isosorbide Allergy Unknown Verified 09/10/24 13:24
meperidine Allergy Unknown Verified 09/10/24 13:24
piperacillin sodium Allergy Itching; Verified 09/10/24 13:24
[From Zosyn] Tolerated
AMOXICILLIN
shellfish derived Allergy ALLERGY-FISH Verified 09/10/24 13:24
EXCEPT TUNA
tazobactam sodium Allergy Itching Verified 09/10/24 13:24
[From Zosyn]
Home Medications
gabapentin 300 mg capsule 300 mg PO HS Pain 03/11/15
polyethylene glycol 3350 17 gram oral powder packet 17 grams PO SUTUTHSA constipation 02/23/17
atorvastatin 20 mg tablet 20 mg PO HS High cholesterol 10/04/18
liothyronine 25 mcg tablet 75 mcg PO DAILY Thyroid 10/04/18
sevelamer carbonate 800 mg tablet 800 mg PO MEALS Kidney Disease 10/04/18
levothyroxine 300 mcg tablet 300 mcg PO DAILY Thyroid 01/16/20
pantoprazole 40 mg tablet,delayed release 40 mg PO DAILY Gastrointestinal issue 01/17/20
bisacodyl 10 mg rectal suppository (OneLAX Bisacodyl) 10 mg MA DAILYPRN PRN constipation 10/20/21
metoprolol succinate 25 mg tablet,extended release 24 hr 25 mg PO MOWEFR@2200 Blood Pressure 02/13/23
metoprolol succinate 25 mg tablet,extended release 24 hr 25 mg PO SUTUTHSA@0800,2000 Blood Pressure 02/13/23
acetaminophen 325 mg tablet 650 mg PO Q4HPRN PRN mild pain/temp>100F 10/14/23
benzonatate 100 mg capsule 100 mg PO Q8HPRN PRN cough 10/14/23
budesonide 0.25 mg/2 mL suspension for nebulization 0.25 mg inhalation R [id number] PRN SOB/wheezing 10/14/23
midodrine 10 mg tablet 10 mg PO Q6H Blood Pressure 10/14/23
sennosides 8.6 mg tablet (senna) 8.6 mg PO HS Constipation 10/14/23
tramadol 50 mg tablet 50 mg PO Q6HPRN PRN moderate pain 10/14/23
vitamin B complex and vitamin C no.20-folic acid 1 mg capsule 1 cap PO HS Supplement 10/14/23
warfarin 2 mg tablet 9 mg PO SUMOWEFRSA Blood Clot Prevention/Tx 10/14/23
albuterol sulfate 90 mcg/actuation aerosol inhaler 2 puff inhalation R Q4HPRN PRN asthma 09/07/24
cetirizine 10 mg tablet 10 mg PO DAILY Allergies 09/07/24
fluticasone furoate 200 mcg/actuation blister powder for inhalation (Arnuity Ellipta) 1 inh inhalation R DAILY Lung/Breathing Issues 09/07/24
lamotrigine 150 mg tablet (Lamictal) 150 mg PO BID Neurological Condition 09/07/24
melatonin 3 mg tablet 6 mg PO HSPRN PRN insomnia 09/07/24
trazodone 100 mg tablet 100 mg PO HS sleep 09/07/24
warfarin 10 mg tablet 10 mg PO TUTH Blood Clot Prevention/Tx 09/07/24
bupropion HCl 150 mg tablet,12 hr sustained-release (Wellbutrin SR) 150 mg PO MOWEFR depression/anxiety 09/10/24
Review of Systems
-
History Source: Patient
A 12 point ROS was completed and negative except as noted: Yes
Constitutional: Reports See HPI
Respiratory: Reports See HPI
Cardiac: Reports See HPI
Musculoskeletal: Reports See HPI
Physical Exam
Vital Signs
Vital Signs
Temp Pulse Resp BP Pulse Ox
98.6 F 103 21 80/53 100
09/10/24 17:00 09/10/24 17:00 09/10/24 17:00 09/10/24 17:00 09/10/24 17:00
Physical Exam
General: No Apparent Distress and Comfortable
HEENT: NormoCephalic
Respiratory: Clear; No Wheezes, Rales or Rhonchi
Cardiac: S1/S2, Irregular Rhythm and Tachycardia
GI: Soft, Non Tender, Non Distended and Normal Bowel Sounds
Musculoskeletal: Other (LUE AV fistula with large wrap, left lower extremity at hip region tender to palpation with presence of edema)
Neuro: Awake, Alert, Oriented and AO x 3
Psych: Calm
Laboratory Results
-
09/10/24 14:01
09/10/24 14:01
Laboratory Results
PT 37.9 Sec (11.4-14.6) H 09/10/24 14:01
INR 3.85 09/10/24 14:01
APTT 82.2 Sec (23.4-35.0) H 09/10/24 14:01
Total Bilirubin 1.2 mg/dl (0.2-1.3) 09/10/24 14:01
AST 29 U/L (17-59) 09/10/24 14:01
ALT 23 U/L (0-50) 09/10/24 14:01
Alkaline Phosphatase 131 U/L (38-126) H 09/10/24 14:01
Impression/Plan
-
IMPRESSION/PLAN:
#Acute blood loss anemia on AOCD due to AV fistula bleeding
-Ultrasound of AV fistula: Patent left radiocephalic arteriovenous fistula Focal velocity elevation is identified at the arteriovenous anastomosis at 372 cm/s (ratio 3.6) which may suggest a greater than 50% stenosis at this location
-Hgb 7.2 on presentation
-Transfuse 2 units in the ED
-Monitor H&H
-Vascular input appreciated. Possible fistulogram this admission.
-Vascular following
#Left hip hematoma status post fall
-CT abdomen/pelvis Soft tissue stranding throughout the left gluteal/buttock region as well as numerous nodular foci largest measuring up to 7.9 cm most likely representing hematomas
-Monitor H&H
-Home dose tramadol, oxycodone 5 mg Q6
-Bowel regimen with Colace, MiraLAX
#ESRD on HD ([facility])
-Consult nephrology
-Evaluate if will need possible tunneled catheter due to AV fistula bleeding occurring twice.
#Mechanical mitral valve replacement
-INR on presentation 3.85
-Hold tonight's Coumadin dose
-Check PT/INR in the a.m.
-INR goal 2.5�3.5
#Chronic hypotension
-Continue midodrine
#Permanent atrial fibrillation
-Continue rate control with metoprolol
-Monitor hemoglobin
#Chronic hypoxic respiratory failure on home O2
-Currently at baseline O2 3L
#Hypothyroidism
-Continue on home regimen
DVT prophylaxis; SCDs
CODE STATUS; full code
[2024-09-10] MEDS: ROXICODONE 5 MG PO ×2 (19:23→23:23)
[2024-09-10] MEDS: LAMICTAL 150 MG PO (22:22)
[2024-09-10] MEDS: LIPITOR 20 MG PO (22:23)
[2024-09-10] MEDS: WELLBUTRIN SR (12 hour sustained release) 150 MG PO (22:24)
[2024-09-10] MEDS: DESYREL 100 MG PO (22:24)
[2024-09-10] MEDS: NEPHROCAP 1 CAPSULE PO (22:24)
[2024-09-10] MEDS: NEURONTIN 300 MG PO (22:24)
[2024-09-10] MEDS: SENOKOT 8.6 MG PO (22:25)
[2024-09-10] MEDS: MELATONIN 6 MG PO (22:32)
[2024-09-10] MEDS: ProAmatine 10 MG PO (23:22)
[2024-09-11] VITALS (11 sets, daily range): BP systolic 83–101; BP diastolic 45–60; BMI 31.5
--- NOTE | 2024-09-11 00:23 | PTCARENOTE ---
Patient arrived from the ED via stretcher at approximately 2000. Patient pulled over from stretcher to bed x3 assist w/ no event. Patient AAOx3, forgetful. VSS as documented. Assessment as documented. Patient oriented to room. Bed in lowest
position. Call garg within reach.
[2024-09-11] MEDS: ProAIR HFA INHALER 2 PUFF INH ×2 (00:43→19:32)
[2024-09-11] MEDS: TESSALON PERLES 100 MG PO ×2 (03:09→22:38)
[2024-09-11] MEDS: ProAmatine 10 MG PO ×4 (06:10→23:26)
[2024-09-11] MEDS: SYNTHROID 300 MCG PO (06:11)
--- NOTE | 2024-09-11 07:55 | W.PN.HOSP.TC ---
Addendum entered and electronically signed by Clarisa Garcia MD 09/11/24 12:06:
I saw and evaluated the patient independently. I reviewed the resident�s note and agree with findings and plan as documented by Dr. Foss.
GENERAL: well developed, well nourished, obese male in no apparent distress
HEENT: NC/AT--baseline O2 NC in place
HEART: irreg irreg
LUNGS : clear to auscultation bilaterally
ABDOM: soft, nontender, nondistended, + bowel sounds
EXT: no cyanosis, clubbing, or edema--pain to palpation along left hip and upper thigh--not changed
NEUROLOGIC: grossly intact
Acute blood loss anemia on anemia of chronic disease likely due to AV fistula bleeding as well as hematoms in left hip--apprec vascular--US done in ED shows Focal velocity elevation identified at the arteriovenous anastomosis at 372 cm/s (ratio 3.6)
which may suggest a greater than 50% stenosis at this location--transfused 2 units pRBC for HGB 7.2 but did not bump as expected, HGB only 7.8--will recheck at noon, follow serial H&H
Left hip hematoma status post fall--CT abdomen/pelvis Soft tissue stranding throughout the left gluteal/buttock region as well as numerous nodular foci largest measuring up to 7.9 cm most likely representing hematomas and likely exacerbated by
coumadin and INR of 3.8--INR today 3.7, hold coumadin again tonight--follow serial H&H--Home dose tramadol, oxycodone 5 mg [id number]--Svdtn regimen with Colace, MiraLAX--will ask vascular to weigh in
ESRD on HD ([facility])--apprec nephrology--Evaluate if will need possible tunneled catheter due to AV fistula bleeding occurring twice.
Mechanical mitral valve replacement on coumadin--INR on presentation 3.85--Hold tonight's Coumadin dose--Check PT/INR in the a.m---INR goal 2.5�3.5--consider cards eval if needed
Chronic hypotension--Continue midodrine
Permanent atrial fibrillation--Continue rate control with metoprolol (add holding parameters)-Monitor hemoglobin
Chronic hypoxic respiratory failure on home O2--Currently at baseline O2 3L
Hypothyroidism--Continue on home regimen
DVT prophylaxis-- SCDs
CODE STATUS-- full code
Original Note:
Today's Communication/Plan
-
Monitor H&H.
Vascular to evaluate Left Hip???
Hold Coumadin dose tonight.
Repeat PT/INR am.
Assessment / Plan
Assessment / Plan
IMPRESSION/PLAN:
#Acute blood loss anemia on AOCD due to AV fistula bleeding
-Ultrasound of AV fistula: Patent left radiocephalic arteriovenous fistula Focal velocity elevation is identified at the arteriovenous anastomosis at 372 cm/s (ratio 3.6) which may suggest a greater than 50% stenosis at this location
-Hgb 7.2 on presentation, status post 2units of blood in the ED
-Hgb today 7.8. Not much increase. Would reach out to vascular to evaluate Left Hip.
-Monitor H&H, Repeat scheduled for Noon.
-Vascular input appreciated. Possible fistulogram this admission.
-Vascular following.
#Left hip hematoma status post fall
-CT abdomen/pelvis Soft tissue stranding throughout the left gluteal/buttock region as well as numerous nodular foci largest measuring up to 7.9 cm most likely representing hematomas
-Hgb 7.2>>7.8 s/p 2 units pRBC.
-Monitor H&H
-Home dose tramadol, oxycodone 5 mg Q6 prn.
-Bowel regimen with Colace, MiraLAX
#ESRD on HD ([facility])
-Consult nephrology.
-Evaluate if will need possible tunneled catheter due to AV fistula bleeding occurring twice.
#Mechanical mitral valve replacement
-INR on presentation 3.85, Now 3.71
-Keep Holding Coumadin dose.
-Check PT/INR in the a.m.
-INR goal 2.5�3.5
#Chronic hypotension
-Continue midodrine
#Permanent atrial fibrillation
-Continue rate control with metoprolol
-Monitor hemoglobin
#Chronic hypoxic respiratory failure on home O2
-Currently at baseline O2 3L
#Hypothyroidism
-Continue on home regimen
DVT prophylaxis; SCDs
CODE STATUS; full code
Anticipated Discharge: > 48 hours
Subjective/Interval History
-
Patient seen and examined at bedside. Patient denies any acute complaint. Reports pain at left Hip region improved with pain medication.
Objective Data
-
Labs:
Laboratory Results
09/10/24 09/11/24 09/11/24
20:01 05:39 06:00
WBC Pending Cancelled
Hgb Cancelled Pending Cancelled
Hct Cancelled Pending Cancelled
Plt Count Pending Cancelled
PT Pending
INR Pending
Sodium Pending
Potassium Pending
Chloride Pending
Carbon Dioxide Pending
BUN Pending
Creatinine Pending
Glucose Pending
Calcium Pending
09/11/24
12:01
WBC
Hgb Pending
Hct Pending
Plt Count
PT
INR
Sodium
Potassium
Chloride
Carbon Dioxide
BUN
Creatinine
Glucose
Calcium
Vital Signs:
Vital Signs
Temp Pulse Resp BP Pulse Ox
98.5 F 112 18 81/48 97
09/11/24 03:19 09/11/24 06:10 09/11/24 03:19 09/11/24 06:10 09/11/24 03:19
I&O
09/10/24 09/11/24 09/12/24
06:59 06:59 06:59
Intake Total 500 / 500
Balance 500 / 500
Review of Systems
-
All other systems: Reviewed and negative (except as documented)
Physical Exam
-
General: No Apparent Distress and Comfortable
Respiratory: Clear to Auscultation; Negative Wheezes, Rales or Rhonchi
Cardiac: S1/S2 and Irregular Rhythm
GI: Soft, Nontender and Nondistended
Musculoskeletal: Other (pain to palpation along the left hip left lower extremity.)
Neuro: AO x 3
Psych: Calm
[2024-09-11 08:00] LABS: INR 3.71; PT 36.8 Sec (11.4-14.6)
[2024-09-11 08:05] LABS: % Basophils 0.5 % (0-2); % Eosinophils 0.7 % (0-6); % Immature Granulocytes 0.5 % (0-0.5); % Lymphocytes 6.7 % (20.5-51.1); % Monocytes 7.6 % (1.7-9.3); Absolute Eosinophils 0.1 10^3/uL (0-0.7); Absolute Lymphocytes 0.6 10^3/uL (1.2-3.4); Absolute Monocytes 0.6 10^3/uL (0.1-0.6); Absolute Neutrophils 6.9 10^3/uL (1.4-6.5); Hemoglobin 7.8 g/dL (13.0-18.0); Mean Corp Hgb Conc. 32.5 g/dL (33.0-37.0); Mean Corpuscular Hgb 26.8 pg (27.0-31.0); Mean Corpuscular Volume 82.5 fL (80.0-94.0); Mean Platelet Volume 10.1 fL (7.4-10.4); Nucleated Red Blood Cells % 0 % (-); Platelet Count 185 10^3/uL (130-400); Red Blood Cell Count 2.91 10^6/uL (4.70-6.10); White Blood Cell Count 8.2 10^3/uL (4.8-10.8)
[2024-09-11 08:43] LABS: Blood Urea Nitrogen 23 mg/dl (9-20); Calcium 8.8 mg/dl (8.4-10.2); Carbon Dioxide 27 mmol/L (22-30); Chloride 97 mmol/L (98-107); Estimated Creatinine Clearance 24 ml/min; Glucose 107 mg/dl (70-99); Potassium 3.6 mmol/L (3.5-5.1); Sodium 139 mmol/L (135-145); eGFR 14.32
[2024-09-11] MEDS: LAMICTAL 150 MG PO ×2 (09:41→20:16)
[2024-09-11] MEDS: CYTOMEL 75 MICROGRAM PO (09:42)
[2024-09-11] MEDS: PROTONIX 40 MG PO (09:42)
[2024-09-11] MEDS: RENVELA 800 MG PO ×3 (09:42→17:38)
[2024-09-11] MEDS: ZYRTEC 10 MG PO (09:42)
[2024-09-11] MEDS: DESENEX/MITRAZOL/ZEASORB 1 APPLIC TOPICAL ×2 (09:43→20:15)
[2024-09-11] MEDS: MIRALAX PO (09:44)
--- NOTE | 2024-09-11 10:14 | W.CON.NEPH ---
Consultation
-
Date/Time Consultation Requested: 09/11/2024 730 AM
Date/Time Consultation Performed: 09/11/2024 10:15 AM
Requesting Provider: Dr. Garcia
Performing Provider: Dr. Zuñiga
Reason for Consultation: ESRD
Medical History
-
Chief Complaint: ESRD
History of Present Illness:
The patient is a 48-year-old male with a past medical history of end-stage renal disease who dialyzes at the percent he is Pyote unit every Tuesday and Tuesday. He has chronic respiratory failure and is maintained on bronchodilator
therapy and chronic oxygen support. He has a history of chronic hypotension and is maintained on midodrine. The patient has a history of a mechanical mitral. valve replacement and is maintained on chronic anticoagulation therapy in addition he
also takes anticoagulation therapy for his chronic atrial fibrillation. He presented last evening with uncontrolled bleeding from his AV fistula following dialysis. He required 2 units of blood. Of note the patient suffered a mechanical fall from
bed this past onto his left hip. Subsequent imaging in the ER with CAT scan revealed hematomas in left buttocks. Nephrology was consulted for his end-stage renal disease management.
Past Medical History
1. End-stage renal disease.
2. Atrial fibrillation.
3. Obstructive sleep apnea.
4. Chronic hypotension onmidodrine support
5. Cirrhosis.
6. Chronic respiratory failure on 3 L nasal cannula.
7. History of mitral valve endocarditis with subsequent mitral
valve repair.
8. History of hypothyroidism.
9. Cecal ulcer.
10.Anemia.
11.Obesity.
12.Depression.
13.Left upper extremity AV fistula.
14.AICD explant.
15 history of rectus abdominal sheath hematoma
Social History
Tobacco: Smoker
Alcohol: None
Family History
no CKD
Family History: Not Pertinent
Allergies / Home Medications
Allergy/AdvReac Type Severity Reaction Status Date / Time
dalteparin,porcine Allergy Unknown Verified 09/10/24 13:24
enoxaparin Allergy Unknown Verified 09/10/24 13:24
isosorbide Allergy Unknown Verified 09/10/24 13:24
meperidine Allergy Unknown Verified 09/10/24 13:24
piperacillin sodium Allergy Itching; Verified 09/10/24 13:24
[From Zosyn] Tolerated
AMOXICILLIN
shellfish derived Allergy ALLERGY-FISH Verified 09/10/24 13:24
EXCEPT TUNA
tazobactam sodium Allergy Itching Verified 09/10/24 13:24
[From Zosyn]
�Medication �Instructions �Recorded �Confirmed �Type
gabapentin 300 mg capsule 300 mg PO HS Pain 03/11/15 09/10/24 History
polyethylene glycol 3350 17 gram 17 grams PO SUTUTHSA constipation 02/23/17 09/10/24 History
oral powder packet
atorvastatin 20 mg tablet 20 mg PO HS High cholesterol 10/04/18 09/10/24 History
liothyronine 25 mcg tablet 75 mcg PO DAILY Thyroid 10/04/18 09/10/24 History
sevelamer carbonate 800 mg tablet 800 mg PO MEALS Kidney Disease 10/04/18 09/10/24 History
levothyroxine 300 mcg tablet 300 mcg PO DAILY Thyroid 01/16/20 09/10/24 History
pantoprazole 40 mg tablet,delayed 40 mg PO DAILY Gastrointestinal 01/17/20 09/10/24 History
release issue
bisacodyl 10 mg rectal suppository 10 mg MN DAILYPRN PRN constipation 10/20/21 09/10/24 History
(OneLAX Bisacodyl)
metoprolol succinate 25 mg 25 mg PO MOWEFR@2200 Blood Pressure 02/13/23 09/10/24 History
tablet,extended release 24 hr
metoprolol succinate 25 mg 25 mg PO SUTUTHSA@0800,2000 Blood 02/13/23 09/10/24 History
tablet,extended release 24 hr Pressure
acetaminophen 325 mg tablet 650 mg PO Q4HPRN PRN mild 10/14/23 09/10/24 History
pain/temp>100F
benzonatate 100 mg capsule 100 mg PO Q8HPRN PRN cough 10/14/23 09/10/24 History
budesonide 0.25 mg/2 mL suspension 0.25 mg inhalation R [id number] PRN 10/14/23 09/10/24 History
for nebulization SOB/wheezing
midodrine 10 mg tablet 10 mg PO Q6H Blood Pressure 10/14/23 09/10/24 History
sennosides 8.6 mg tablet (senna) 8.6 mg PO HS Constipation 10/14/23 09/10/24 History
tramadol 50 mg tablet 50 mg PO Q6HPRN PRN moderate pain 10/14/23 09/10/24 History
vitamin B complex and vitamin C 1 cap PO HS Supplement 10/14/23 09/10/24 History
no.20-folic acid 1 mg capsule
warfarin 2 mg tablet 9 mg PO SUMOWEFRSA Blood Clot 10/14/23 09/10/24 History
Prevention/Tx
albuterol sulfate 90 mcg/actuation 2 puff inhalation R Q4HPRN PRN 09/07/24 09/10/24 History
aerosol inhaler asthma
cetirizine 10 mg tablet 10 mg PO DAILY Allergies 09/07/24 09/10/24 History
fluticasone furoate 200 1 inh inhalation R DAILY 09/07/24 09/10/24 History
mcg/actuation blister powder for Lung/Breathing Issues
inhalation (Arnuity Ellipta)
lamotrigine 150 mg tablet 150 mg PO BID Neurological 09/07/24 09/10/24 History
(Lamictal) Condition
melatonin 3 mg tablet 6 mg PO HSPRN PRN insomnia 09/07/24 09/10/24 History
trazodone 100 mg tablet 100 mg PO HS sleep 09/07/24 09/10/24 History
warfarin 10 mg tablet 10 mg PO TUTH Blood Clot 09/07/24 09/10/24 History
Prevention/Tx
bupropion HCl 150 mg tablet,12 hr 150 mg PO MOWEFR depression/anxiety 09/10/24 09/10/24 History
sustained-release (Wellbutrin SR)
Review of Systems
-
History Source: Patient
All other systems: Negative unless noted
Respiratory: Other (Chronic respiratory failure on oxygen support)
Musculoskeletal: Other (Severe left buttock pain)
Skin: Other (AV fistula bleed)
Physical Exam
Vital Signs
Vital Signs
Temp Pulse Resp BP Pulse Ox
98.8 F 107 18 90/58 100
09/11/24 07:10 09/11/24 09:41 09/11/24 07:58 09/11/24 09:41 09/11/24 07:58
Lab Results
WBC Cancelled 09/11/24 06:00
RBC Cancelled 09/11/24 06:00
Plt Count Cancelled 09/11/24 06:00
Sodium 139 mmol/L (135-145) 09/11/24 05:39
Potassium 3.6 mmol/L (3.5-5.1) 09/11/24 05:39
Chloride 97 mmol/L (98-107) L 09/11/24 05:39
Carbon Dioxide 27 mmol/L (22-30) 09/11/24 05:39
BUN 23 mg/dl (9-20) H 09/11/24 05:39
Creatinine 4.7 mg/dL (0.7-1.3) H* 09/11/24 05:39
eGFR 14.32 09/11/24 05:39
Glucose 107 mg/dl (70-99) H 09/11/24 05:39
Calcium 8.8 mg/dl (8.4-10.2) 09/11/24 05:39
Albumin 4.2 g/dl (3.5-5.0) 09/10/24 14:01
Physical Exam
General: AOx3, Nontoxic , NAD
HEENT: PERRL, EOMI, Anicteric, Conjunctivae Clear, Ear/Nose Intact, Hearing Normal, Oropharynx Clear/Moist, Dentition Intact, Facial Symmetry, Neck Supple, Neck: Trachea Midline, No JVD and No Thyromegaly, no Bruits
Respiratory: coarse to auscultation bilaterally with normal lung excursion
Cardiac: S1/S2 and irregular irregular
Breast: Deferred by me
Abdomen: Soft, Nontender, Nondistended, Normal Bowel Sounds and No Hepatosplenomegaly
Rectal: Deferred by Provider
Genito-urinary: No Costovertebral Tenderness
Extremities: No Clubbing, No Cyanosis and trace edema, severe left buttock pain with palpitation
Skin: No Rash or open lesions
Neuro: Nonfocal/Grossly Intact, CN II-XII (Intact) and Strength (Musculoskeletal exam 5 out of 5 both upper and lower extremities)
Hematologic/Lymphatic: No Cervical Lymphadenopathy, No Submandibular Lymphadenopathy and No Supraclavicular Lymphadenopathy
Psych: Mood/afflect pleasant, Insight/judgement good and Appropriate
Vascular: plus 1pedal and radial pulses
Vascular Access: AVF (Left radial AV fistula with thrill and bruit bandaged with wrap)
Data Reviewed
-
Radiology: Report Reviewed by me (Ultrasound of hemodialysis graft reviewed of left upper extremity AV fistula: Noted focal velocity elevation)
CT Scan: Report Reviewed by me (CT of abdomen and pelvis reviewed soft tissue stranding throughout left gluteal buttock region consistent with hematoma of 7.9 cm)
Labs: Labs Reviewed by me (BMP CBC)
Old Records: Reviewed (Reviewed prior history and nephrology consult from February 2023 when patient was admitted with abdominal pain with subsequent rectus abdominal sheath hematoma)
Assessment/Plan
-
Impression:
End-stage renal disease.
AV fistula bleed
Status post fall from bed with subsequent left buttock hematoma
Anemia.
Chronic hypotension on midodrine support
Hyperphosphatemia.
History of mechanical aortic valve on chronic anticoagulation
History of chronic lung disease.
History of AFib.
Plan:
HD tomorrow, orders provided
holding heparin on HD due to hematoma
Likely will require AV fistulogram to inspect ongoing hemorrhage from AV fistula per vascular
Appropriate dietary and fluid restrictions ordered
Maintain sevelamer with meals in reference to hyperphosphatemia
TIO and blood products to be given in regards to worsening anemia in setting of hemorrhage and hematoma
Follow-up hemoglobin at noon if hemoglobin continues to drop will require additional blood product
Maintain midodrine support for chronic hypotension
[2024-09-11] MEDS: ROBITUSSIN 100 MG PO (11:08)
[2024-09-11] MEDS: ROXICODONE 5 MG PO (11:09)
[2024-09-11 12:08] LABS: Hematocrit 23.7 % (39.0-52.0); Hemoglobin 7.9 g/dL (13.0-18.0)
--- NOTE | 2024-09-11 13:59 | W.PN.UPDATE ---
Update Note
Progress Note Update
This patient was seen and examined with FABIEN Ireland. I agree with the history and physical exam as well as the assessment and plan. I have the following additions:
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
Patient is on systemic anticoagulation
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
Currently there is no bleeding
There is no skin breakdown or ulceration
The fistula is patent on physical examination today
Patient also reports falling 2 weeks ago with local trauma to his left buttock and hip
Hematomas identified on CT scan
Patient reports symptoms of discomfort in the left buttock have worsened since admission
On exam there is induration and tenderness over the left buttock region consistent with hematoma and recent fall.
Plan for fistulogram on this admission
Trend hemoglobin
CT angiogram of the abdomen and pelvis to rule out active extravasation given worsening in patient's symptoms over left buttock, although none clearly identified on CT scan the other day.
Will follow
Signed:
Nikhil Fang III, MD
[facility] Surgery
[phone] (adrt)
[2024-09-11] MEDS: ULTRAM 50 MG PO (16:31)
[2024-09-11 22:30] LABS: Hematocrit 26.5 % (39.0-52.0); Hemoglobin 8.8 g/dL (13.0-18.0)
[2024-09-11] MEDS: SENOKOT 8.6 MG PO (22:33)
[2024-09-11] MEDS: NEPHROCAP 1 CAPSULE PO (22:33)
[2024-09-11] MEDS: DESYREL 100 MG PO (22:33)
[2024-09-11] MEDS: LIPITOR 20 MG PO (22:33)
[2024-09-11] MEDS: TYLENOL 1000 MG PO (22:33)
[2024-09-11] MEDS: MELATONIN 6 MG PO (22:33)
[2024-09-11] MEDS: NEURONTIN 300 MG PO (22:33)
[2024-09-12] VITALS (7 sets, daily range): BP systolic 91–108; BP diastolic 47–63; BMI 31.5
[2024-09-12] MEDS: ROXICODONE 5 MG PO ×3 (01:31→22:34)
[2024-09-12] MEDS: ROBITUSSIN 100 MG PO ×3 (02:20→23:35)
[2024-09-12] MEDS: CYTOMEL 75 MICROGRAM PO (06:04)
[2024-09-12] MEDS: ProAmatine 10 MG PO ×4 (06:04→23:35)
[2024-09-12] MEDS: SYNTHROID 300 MCG PO (06:05)
[2024-09-12] MEDS: ProAIR HFA INHALER 2 PUFF INH (07:28)
--- NOTE | 2024-09-12 07:32 | W.PN.HOSP.TC ---
Addendum entered and electronically signed by Clarisa Garcia MD 09/12/24 13:32:
I saw and evaluated the patient independently. I reviewed the resident�s note and agree with findings and plan as documented by Dr. Foss.
GENERAL: well developed, well nourished, obese male in no apparent distress
HEENT: NC/AT--baseline O2 NC in place
HEART: irreg irreg
LUNGS : clear to auscultation bilaterally
ABDOM: soft, nontender, nondistended, + bowel sounds
EXT: no cyanosis, clubbing, or edema--pain to palpation along left hip and upper thigh--not changed
NEUROLOGIC: grossly intact
Acute blood loss anemia on anemia of chronic disease likely due to AV fistula bleeding as well as hematomas in left hip--apprec vascular--US done in ED shows Focal velocity elevation identified at the arteriovenous anastomosis at 372 cm/s (ratio
3.6) which may suggest a greater than 50% stenosis at this location--transfused 3 units pRBC in total so far for HGB 7.2 to 8.8
Left hip hematoma status post fall--CT abdomen/pelvis Soft tissue stranding throughout the left gluteal/buttock region as well as numerous nodular foci largest measuring up to 7.9 cm most likely representing hematomas and likely exacerbated by
coumadin and INR of 3.8--follow serial H&H--Home dose tramadol, oxycodone 5 mg N2rko--Wfbur regimen with Colace, MiraLAX--apprec vascular--CTA a/p showed no active bleeding
ESRD on HD ([facility])--apprec nephrology--Evaluate if will need possible tunneled catheter due to AV fistula bleeding occurring twice.
Mechanical mitral valve replacement on coumadin--INR on presentation 3.85--Held coumadin--INR 09/12 is 2.6 so restarting and follow INR--INR goal 2.5�3.5
Chronic hypotension--Continue midodrine--TSH 148 despite being on 300mcg of levothyroxine and 75mcg of liothyronine--will discuss with endo
Permanent atrial fibrillation--Continue rate control with metoprolol (add holding parameters)-Monitor hemoglobin
Chronic hypoxic respiratory failure on home O2--Currently at baseline O2 3L
Hypothyroidism--Continue on home regimen
DVT prophylaxis-- SCDs
CODE STATUS-- full code
Original Note:
Today's Communication/Plan
-
HD today
Resume Coumadin
Assessment / Plan
Assessment / Plan
IMPRESSION/PLAN:
#Acute blood loss anemia on AOCD due to AV fistula bleeding
-Ultrasound of AV fistula: Patent left radiocephalic arteriovenous fistula Focal velocity elevation is identified at the arteriovenous anastomosis at 372 cm/s (ratio 3.6) which may suggest a greater than 50% stenosis at this location
-Hgb 7.2>>7.9>>8.8 s/p 1 unit yesterday.
-Monitor H&H
-Vascular input appreciated. Possible fistulogram this admission.
-Vascular following.
#Left hip hematoma status post fall
-CT abdomen/pelvis Soft tissue stranding throughout the left gluteal/buttock region as well as numerous nodular foci largest measuring up to 7.9 cm most likely representing hematomas
-Hgb today 8.8. Received 1 unit yesterday.
-Monitor H&H
-Continue Home dose tramadol, oxycodone 5 mg Q6 prn.
-Bowel regimen with Colace, MiraLAX
-Vascular input appreciated.
-CT abd/pelv angio 09/11/24 -There is no evidence of extravasation associated with the left-sided soft tissues. There are multiple small arteries which course in the region of the hematoma however there is no discrete active bleed.
#ESRD on HD ([facility])
-Nephrology input appreciated.
-HD today.
#Mechanical mitral valve replacement
-INR today 2.60
-Resume Coumadin dose.
-Monitor PT/INR
-INR goal 2.5�3.5
#Chronic hypotension
-Continue midodrine
-TSH pending, Cortisol Normal.
#Permanent atrial fibrillation
-Continue rate control with metoprolol
-Monitor hemoglobin
#Chronic hypoxic respiratory failure on home O2
-Currently at baseline O2 3L
#Hypothyroidism
-Continue on home regimen
DVT prophylaxis; SCDs
CODE STATUS; full code
Anticipated Discharge: > 48 hours
Subjective/Interval History
-
Date of Service: September 12, 2024
Objective Data
-
Labs:
Laboratory Results
09/11/24 09/12/24 09/12/24
06:00 07:00
WBC Pending
Hgb 8.8 L Pending
Hct 26.5 L Pending
Plt Count Pending
PT Pending
INR Pending
Sodium Pending
Potassium Pending
Chloride Pending
Carbon Dioxide Pending
BUN Pending
Creatinine Pending
Glucose Pending
Calcium Pending
Vital Signs:
Vital Signs
Temp Pulse Resp BP Pulse Ox
98.4 F 116 17 89/55 98
09/12/24 03:13 09/12/24 06:04 09/12/24 03:13 09/12/24 06:04 09/12/24 03:13
I&O
09/11/24 09/12/24 09/13/24
06:59 06:59 06:59
Intake Total 500 / 500 1570 / 1570
Balance 500 / 500 1570 / 1570
Review of Systems
-
All other systems: Reviewed and negative (except as documented)
Physical Exam
-
General: No Apparent Distress and Comfortable
Respiratory: Clear to Auscultation; Negative Wheezes, Rales or Rhonchi
Cardiac: S1/S2 and Irregular Rhythm
GI: Soft, Nontender and Nondistended
Musculoskeletal: Other (pain to palpation along the left hip left lower extremity)
Neuro: Awake, Alert, Oriented and AO x 3
[2024-09-12] MEDS: LAMICTAL 150 MG PO ×2 (08:23→20:40)
[2024-09-12] MEDS: PROTONIX 40 MG PO (08:23)
[2024-09-12] MEDS: RENVELA PO ×2 (08:23→12:24)
[2024-09-12] MEDS: ZYRTEC 10 MG PO (08:24)
[2024-09-12] MEDS: WELLBUTRIN SR (12 hour sustained release) 150 MG PO (08:26)
[2024-09-12] MEDS: DESENEX/MITRAZOL/ZEASORB 1 APPLIC TOPICAL ×2 (08:30→20:44)
--- NOTE | 2024-09-12 08:45 | CM ---
late note. Patient seen 09/11/24 with physicians. Patient from [facility]. CM left with admissions to follow up on patient prior functional needs. CM will continue to follow for discharge planning needs.
Plan; return to SNF when medically appropriate.
--- NOTE | 2024-09-12 10:17 | VATNOTE ---
Right arm antecubital IV removed due to site bleeding. QuickClot placed to old IV site due to excessive bleeding.
[2024-09-12 10:50] LABS: Hematocrit 26.2 % (39.0-52.0); Hemoglobin 8.8 g/dL (13.0-18.0); Mean Corp Hgb Conc. 33.6 g/dL (33.0-37.0); Mean Corpuscular Hgb 28.4 pg (27.0-31.0); Mean Corpuscular Volume 84.5 fL (80.0-94.0); Mean Platelet Volume 10.1 fL (7.4-10.4); Platelet Count 220 10^3/uL (130-400); White Blood Cell Count 8.9 10^3/uL (4.8-10.8)
[2024-09-12 10:58] LABS: PT 28.3 Sec (11.4-14.6)
[2024-09-12 12:13] LABS: Blood Urea Nitrogen 42 mg/dl (9-20); Calcium 9.6 mg/dl (8.4-10.2); Carbon Dioxide 24 mmol/L (22-30); Chloride 97 mmol/L (98-107); Estimated Creatinine Clearance 15 ml/min; Glucose 112 mg/dl (70-99); Potassium 4.2 mmol/L (3.5-5.1); Sodium 137 mmol/L (135-145)
[2024-09-12 12:30] LABS: Cortisol, Random 21.2 ug/dl
--- NOTE | 2024-09-12 14:36 | W.PN.NEPH.HD ---
Assessment
-
Seen on HD. no new complaints. left hip pain (hematoma). access ok, VSS
for AVFgram tomorrow
liberalize diet
Progress Note - Hemodialysis
-
Date of Service: September 12, 2024
Duration: 30 minutes and 3 hours
Potassium Bath: 3
Calcium Bath: 2.5
Opti-Dialyzer: 160
Ultrafiltration: Other (2kg)
Blood Flow: 400
Dialysate Flow: 600
Heparin: no
EPO: 85310 units
--- NOTE | 2024-09-12 15:39 | CM ---
Patient seen at bedside with physicians. Patient c/o bleeding from port earlier today. HD tentatively today. CM will continue to follow for discharge planning needs.
Plan; return to SNF
[2024-09-12] MEDS: TESSALON PERLES 100 MG PO (16:28)
[2024-09-12] MEDS: RENVELA 800 MG PO (16:28)
[2024-09-12] MEDS: COUMADIN 9 MG PO (17:50)
[2024-09-12] MEDS: NEPHROCAP 1 CAPSULE PO (22:25)
[2024-09-12] MEDS: LIPITOR 20 MG PO (22:25)
[2024-09-12] MEDS: SENOKOT 8.6 MG PO (22:25)
[2024-09-12] MEDS: NEURONTIN 300 MG PO (22:27)
[2024-09-12] MEDS: DESYREL 100 MG PO (22:27)
[2024-09-13] VITALS (18 sets, daily range): BP systolic 86–121; BP diastolic 40–67; BMI 32.1
[2024-09-13] MEDS: TYLENOL 650 MG PO ×2 (02:54→12:58)
[2024-09-13] MEDS: TESSALON PERLES 100 MG PO ×2 (02:54→22:53)
[2024-09-13 03:28] LABS: COVID-19 Antigen Negative (Negative)
[2024-09-13] MEDS: ProAmatine 10 MG PO ×4 (05:36→23:57)
[2024-09-13] MEDS: CYTOMEL 75 MICROGRAM PO (05:36)
[2024-09-13] MEDS: SYNTHROID 300 MCG PO (05:48)
[2024-09-13 06:09] LABS: Hematocrit 25.4 % (39.0-52.0); Hemoglobin 8.6 g/dL (13.0-18.0); Mean Corp Hgb Conc. 33.9 g/dL (33.0-37.0); Mean Corpuscular Hgb 28.8 pg (27.0-31.0); Mean Corpuscular Volume 84.9 fL (80.0-94.0); Mean Platelet Volume 10.2 fL (7.4-10.4); Platelet Count 229 10^3/uL (130-400); Red Blood Cell Count 2.99 10^6/uL (4.70-6.10); Red Cell Dist. Width 18.1 % (11.5-14.5); White Blood Cell Count 9.2 10^3/uL (4.8-10.8)
[2024-09-13 06:14] LABS: INR 2.08; PT 23.9 Sec (11.4-14.6)
[2024-09-13 06:31] LABS: Blood Urea Nitrogen 29 mg/dl (9-20); Calcium 9.1 mg/dl (8.4-10.2); Carbon Dioxide 26 mmol/L (22-30); Chloride 97 mmol/L (98-107); Estimated Creatinine Clearance 22 ml/min; Glucose 95 mg/dl (70-99); Potassium 3.8 mmol/L (3.5-5.1); Sodium 138 mmol/L (135-145); eGFR 13.29
--- NOTE | 2024-09-13 07:25 | W.PN.HOSP.TC ---
Addendum entered and electronically signed by Clarisa Garcia MD 09/13/24 15:20:
I saw and evaluated the patient independently. I reviewed the resident�s note and agree with findings and plan as documented by Dr. Foss.
GENERAL: well developed, well nourished, obese male in no apparent distress
HEENT: NC/AT--baseline O2 NC in place
HEART: irreg irreg
LUNGS : clear to auscultation bilaterally
ABDOM: soft, nontender, nondistended, + bowel sounds
EXT: no cyanosis, clubbing, or edema--pain to palpation along left hip and upper thigh--not changed
NEUROLOGIC: grossly intact
Acute blood loss anemia on anemia of chronic disease likely due to AV fistula bleeding as well as hematomas in left hip--[facility]--US done in ED shows Focal velocity elevation identified at the arteriovenous anastomosis at 372 cm/s (ratio
3.6) which may suggest a greater than 50% stenosis at this location--transfused 3 units pRBC in total so far for HGB 7.2 to 8.8
Left hip hematoma status post fall--CT abdomen/pelvis Soft tissue stranding throughout the left gluteal/buttock region as well as numerous nodular foci largest measuring up to 7.9 cm most likely representing hematomas and likely exacerbated by
coumadin and INR of 3.8--follow serial H&H--Home dose tramadol, oxycodone 5 mg [id number]--Kbcyw regimen with Colace, MiraLAX--[facility] vascular--CTA a/p showed no active bleeding
ESRD on HD ([facility])--[facility] nephrology--Evaluate if will need possible tunneled catheter due to AV fistula bleeding occurring twice--[facility] vascular had fistulogram now with good results
Mechanical mitral valve replacement on coumadin--INR on presentation 3.85--Held coumadin--INR 09/12 is 2.6 so restarting and follow INR--INR goal 2.5�3.5
Chronic hypotension--Continue midodrine--TSH 148 despite being on 300mcg of levothyroxine and 75mcg of liothyronine--will discuss with endo re: whether IV therapy indicated
Permanent atrial fibrillation--Continue rate control with metoprolol (add holding parameters)-Monitor hemoglobin--consult cards
Chronic hypoxic respiratory failure on home O2--Currently at baseline O2 3L
Hypothyroidism--Continue on home regimen--see above discussion with elevated TSH
DVT prophylaxis-- SCDs
CODE STATUS-- full code
Original Note:
Today's Communication/Plan
-
.
Assessment / Plan
Assessment / Plan
IMPRESSION/PLAN:
#Acute blood loss anemia on AOCD due to AV fistula bleeding
-Ultrasound of AV fistula: Patent left radiocephalic arteriovenous fistula Focal velocity elevation is identified at the arteriovenous anastomosis at 372 cm/s (ratio 3.6) which may suggest a greater than 50% stenosis at this location
-Hgb 8.6 today.
-Vascular input appreciated. Fistulogram today.
-Vascular following.
#Left hip hematoma status post fall
-CT abdomen/pelvis Soft tissue stranding throughout the left gluteal/buttock region as well as numerous nodular foci largest measuring up to 7.9 cm most likely representing hematomas
-Hgb today 8.6. Received total of 3 units of blood this admission.
-Continue Home dose tramadol, oxycodone 5 mg Q6 prn.
-Bowel regimen with Colace, MiraLAX
-Vascular input appreciated.
-CT abd/pelv angio 09/11/24 -There is no evidence of extravasation associated with the left-sided soft tissues. There are multiple small arteries which course in the region of the hematoma however there is no discrete active bleed.
#ESRD on HD ([facility])
-Nephrology input appreciated.
-HD yesterday.
#Mechanical mitral valve replacement
-INR today 2.08
-On Coumadin
-Monitor PT/INR
#Chronic hypotension
-Continue midodrine
-TSH 148, Cortisol Normal.
#Permanent atrial fibrillation
-Tachycardic the last few days. Although Metoprolol on hold due to soft BPs.
-Will decrease metoprolol dosage with new holding parameters.
-Will consult cardiology.
#Chronic hypoxic respiratory failure on home O2
-Currently at baseline O2 3L
#Hypothyroidism
-TSH 148 this admission.
-Will need outpatient workup for malabsorption, thyroid ultrasound/MRI.
-Will discuss with coal drier operator if patient will need IV Levothyroxine.
-For now, Continue on home regimen. Levothyroxine 300mcg, Liothyronine 75mcg.
DVT prophylaxis; SCDs
CODE STATUS; full code
Anticipated Discharge: > 48 hours
Subjective/Interval History
-
Date of Service: September 13, 2024
Objective Data
-
Labs:
Laboratory Results
09/13/24
05:11
WBC 9.2
Hgb 8.6 L
Hct 25.4 L
Plt Count 229
PT 23.9 H
INR 2.08
Sodium 138
Potassium 3.8
Chloride 97 L
Carbon Dioxide 26
BUN 29 H
Creatinine 5.0 H*
Glucose 95
Calcium 9.1
Vital Signs:
Vital Signs
Temp Pulse Resp BP Pulse Ox
98.5 F 128 19 101/60 97
09/13/24 05:44 09/13/24 05:44 09/13/24 03:24 09/13/24 05:44 09/13/24 03:24
I&O
09/12/24 09/13/24 09/14/24
06:59 06:59 06:59
Intake Total 1570 / 1570 680 / 680
Balance 1570 / 1570 680 / 680
Review of Systems
-
All other systems: Reviewed and negative (except as documented)
Physical Exam
-
General: No Apparent Distress and Comfortable
Respiratory: Clear to Auscultation; Negative Wheezes or Rales
Cardiac: Regular Rhythm and S1/S2
GI: Soft, Nontender and Nondistended
Musculoskeletal: Other (pain to palpation along the left hip left lower extremity)
Neuro: Awake, Alert, Oriented and AO x 3
Psych: Calm
[2024-09-13] MEDS: RENVELA PO (08:00)
[2024-09-13] MEDS: DESENEX/MITRAZOL/ZEASORB TOPICAL (08:00)
--- NOTE | 2024-09-13 08:42 | W.SUR.PREOP ---
Pre-Operative Surgical Note
-
I have examined this patient prior to the performance of the scheduled procedure.
The patient's condition is unchanged from the time of the current History and
Physical and the patient is able to undergo the scheduled procedure.
Discussed procedure of left upper extremity fistulogram. Discussed indication for prolonged bleeding after hemodialysis. Discussed possible angioplasty/stenting. Discussed risks including but not limited to bleeding, arterial/venous injury,
clotting complications, failure of fistula. He understands all these things and wishes to proceed.
--- NOTE | 2024-09-13 09:51 | W.SUR.POST ---
Surgical Immediate Post Op
Note
Pre Op Diagnosis: ESRD
Post Op Diagnosis: ESRD
Procedure Performed: LUE fistulagram, central venogram, balloon angioplasty outflow vein stenosis
Primary Surgeon: Moreno
Anesthesia: local and sedation
Estimated Blood Loss: <2cc
Fluids: see anesthesia flow sheet
Drains/Shunts: none
Specimens/Cultures: none
Doppler/Duplex/Angio (Y/N): Y
Complications: none
Operative Findings: +thrill
--- NOTE | 2024-09-13 09:58 | OR.RPT ---
Operative Report
Operative Report
PROCEDURE DATE: 09/13/2024
Preoperative diagnosis:
1. End-stage renal disease on hemodialysis.
2. Prolonged bleeding after hemodialysis.
Postoperative diagnosis: Same
Procedure:
1. Duplex assisted cannulation of left radiocephalic arteriovenous fistula.
2. Left upper extremity fistulogram and central venogram.
3. Balloon angioplasty of possible venous outflow stenosis/web in the antecubital fossa.
4. Supervision and interpretation.
Surgeon: Morneo
Head Silverman: None
Complications: None
Anesthesia: Local, sedation
Fluoroscopy:
3.9 min
26 mGy
8.42 Gy.cm2
Indications for procedure:
Prolonged bleeding after hemodialysis. Concern for outflow vein stenosis. Risk/benefit/alternatives of fistulogram fully discussed. Patient understood all wished proceed.
Description of procedure:
Patient was identified, brought to the operating room. Placed on the table in the supine position. After the adequate administration of anesthesia, the patient was prepped and draped in the standard surgical fashion. A standard preoperative
timeout was undertaken and everybody was in agreement with the plan.
Under duplex assisted guidance the left cephalic vein outflow of the radiocephalic arteriovenous fistula was punctured and a central facing direction at the distal wrist. (After infiltration of the skin subcutaneous tissue with 1% lidocaine). A 5
Q[place]ari sheath was advanced over a 0.035 inch wire. Left upper extremity fistulogram and central venogram was obtained. This demonstrated patent fistula with somewhat tortuous outflow vein immediately adjacent to the sheath, and then aneurysmal
dilatation. Somewhat slowed flow through the aneurysmal portion. But no obvious stenosis. At the antecubital fossa there was an area of webbing but not a definitive stenosis. There is a confluence of veins there. There may have been a stenosis
but I could not say for sure. Outflow in the upper arm was through the basilic and cephalic veins. No evidence of central venous stenosis was identified. I then compressed the fistula and tried to do a fistulogram with compression. Proximal
fistula appeared patent. I difficulty refluxing across the anastomosis due to the high flow and large size of the aneurysmal fistula and making compression slightly difficult. But I did not identify definitive arterial anastomotic stenosis. At
this point I selectively cannulated the basilic vein under roadmap assisted guidance with a flopping of hydrophilic wire and a glide catheter. I then exchanged for a Storq wire. I then elected to perform balloon angioplasty of the antecubital
webbing/possible stenosis area. I used a 6 mm x 4 cm angioplasty balloon. Completion angiogram actually demonstrated improvement of the webbing/stenosis. This indicated there may have been indeed a stenosis there. At this point is very
satisfied. The wires and catheters were withdrawn. A 4 Monocryl pursestring stitch was placed around the sheath entry site. And the sheath was withdrawn while the stitch was tied down. Manual pressure was also gently applied. Hemostasis was
fully achieved. The patient tolerated procedure well and had a good thrill in the fistula upon completion.
--- NOTE | 2024-09-13 09:58 | W.PN.UPDATE ---
Update Note
Progress Note Update
Fistulogram performed. See my op note. No definitive outflow or central venous high-grade stenosis that would explain prolonged bleeding after hemodialysis. There was a webbing area in the antecubital outflow and there may have been a stenosis
there but was difficult to say with certainty on two-dimensional angiography. I did perform balloon angioplasty of that area with good result. Hopefully this helps the prolonged bleeding after dialysis. But otherwise may be related to
anticoagulation, aneurysmal outflow resulting in turbulent flow, tortuosity of the immediate outflow vein. Not much else to render invasively (aside from fistula revision to new access).
--- NOTE | 2024-09-13 11:05 | PTCARENOTE ---
Received pt in bed post LUE fistulogram. Pt very drowsy but arousable. Post-op vitals started and VSS. Neurovascular check completed see worklist. Dressing clean, dry, and intact on L forearm. Pt reports having no pain at this time. Call garg within
reach. Pt offers no complaints at this time.
[2024-09-13] MEDS: MIRALAX PO (11:29)
[2024-09-13] MEDS: PROTONIX 40 MG PO (11:31)
[2024-09-13] MEDS: LAMICTAL 150 MG PO ×2 (11:31→20:38)
[2024-09-13] MEDS: RENVELA 800 MG PO ×2 (11:32→18:27)
[2024-09-13] MEDS: ZYRTEC 10 MG PO (11:32)
--- NOTE | 2024-09-13 11:33 | CON.CAR ---
Addendum entered and electronically signed by William Gooden MD 09/13/24 17:06:
I saw and examined the patient.
The Meteorology Professor's note was reviewed and I agree with the note.
Comment: Briefly, 48-year-old man past medical history of mechanical mitral valve replacement, permanent atrial fibrillation, end-stage renal disease on dialysis, chronic respiratory failure on 3 L home O2 and orthostasis who presents from his
nursing facility with recurrent bleeding from his AV fistula
While here he was noted to be hypotensive and orthostatic and metoprolol dose was decreased
Subsequently developed tachycardia for which cardiology is consulted
Despite elevated heart rate patient seems to be asymptomatic
Ideally would have goal heart rate in A-fib less than 110 bpm although this has been difficult in the past
Would increase metoprolol back up to prior dose
Monitor on telemetry overnight
Continue midodrine for orthostasis. Could consider Florinef as well.
Volume removal via HD per nephrology
Original Note:
Consultation
Consultation Request
Date/Time Consultation Requested: 09/13/24
Date/Time Consultation Performed: 09/13/24
Requesting Provider: Dr. Garcia
Performing Provider: Dr. Gooden
Reason for Consultation: Tachycardia, cAfib
Medical History
-
History of Present Illness:
Patient came to [facility] on Tuesday with bleeding from his HD fistula and was admitted with anemia and cardiology is now consulted for rapid Afib. Patient is originally from [place], [place] and has a complicated past medical history spread out over the
[facility]. He had a mechanical mitral valve while living in [place], [place] in 1997. He says this was for a history rheumatic heart disease as a child. Then sometime around 2008 he moved to [place], [place] with his and around that
time he says he had a marked deterioration in his renal function and was started on hemodialysis in response to hypertensive nephropathy. 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 During an admission to
[facility] in 2014 he required a trach. With the addition of trach to his dialysis, he could only be transferred to [facility] (now [facility]). He has been there ever since even though his trach was removed. Patient
lives in a 4 bedroom unit at [facility] where he is a long-term resident and travels by [place] 3x a week for HD sessions. All of his family lives in [place], and his has since him. Afib is permanent and patient says he can hear his
heart beat due to mechanical valve, but no palpitations. Patient thinks he had a cardiac arrest while admitted to [facility] years ago that was related to amiodarone. He was on digoxin in 2014, but it was stopped for unclear reasons. Patient says he has
chest pain, he has chronic chest pain. INR was 2.85 on admission and he says INRs are checked every Tuesday with INR goal of 2.5 to 3.5. Vascular surgery performed fistulogram today and balloon angioplasty performed.
PMH:
Permanent atrial fibrillation
NICM, EF was 25-30% by echo 05/26/22
Chronic HFrEF
s/p SJM Mechanical MVR 1997
Chronic Coumadin therapy
Severe tricuspid regurgitation
H/o ICD explant due to infection 2005
HTN
ESRD on HD
h/o CVA, by review of CT head with an area of encephalomalacia involving the right anterolateral frontal lobe 07/2015
Obstructive sleep apnea
Former smoker
Past Medical History
Past Medical History: Other (in HPI)
Past Surgical History: Cardiac ([place] mechanical MVR 1997)
Social History
Tobacco: Former Smoker
Alcohol: None
Drug: None
Personal:
Living: [facility]
Family History
Family History: Other (CVA, ESRD)
Allergies / Home Medications
Allergy/AdvReac Type Severity Reaction Status Date / Time
dalteparin,porcine Allergy Unknown Verified 09/10/24 13:24
enoxaparin Allergy Unknown Verified 09/10/24 13:24
isosorbide Allergy Unknown Verified 09/10/24 13:24
meperidine Allergy Unknown Verified 09/10/24 13:24
piperacillin sodium Allergy Itching; Verified 09/10/24 13:24
[From Zosyn] Tolerated
AMOXICILLIN
shellfish derived Allergy ALLERGY-FISH Verified 09/10/24 13:24
EXCEPT TUNA
tazobactam sodium Allergy Itching Verified 09/10/24 13:24
[From Zosyn]
�Medication �Instructions �Recorded �Confirmed �Type
gabapentin 300 mg capsule 300 mg PO HS Pain 03/11/15 09/10/24 History
polyethylene glycol 3350 17 gram 17 grams PO SUTUTHSA constipation 02/23/17 09/10/24 History
oral powder packet
atorvastatin 20 mg tablet 20 mg PO HS High cholesterol 10/04/18 09/10/24 History
liothyronine 25 mcg tablet 75 mcg PO DAILY Thyroid 10/04/18 09/10/24 History
sevelamer carbonate 800 mg tablet 800 mg PO MEALS Kidney Disease 10/04/18 09/10/24 History
levothyroxine 300 mcg tablet 300 mcg PO DAILY Thyroid 01/16/20 09/10/24 History
pantoprazole 40 mg tablet,delayed 40 mg PO DAILY Gastrointestinal 01/17/20 09/10/24 History
release issue
bisacodyl 10 mg rectal suppository 10 mg [place] DAILYPRN PRN constipation 10/20/21 09/10/24 History
(OneLAX Bisacodyl)
metoprolol succinate 25 mg 25 mg PO MOWEFR@2200 Blood Pressure 02/13/23 09/10/24 History
tablet,extended release 24 hr
metoprolol succinate 25 mg 25 mg PO SUTUTHSA@0800,2000 Blood 02/13/23 09/10/24 History
tablet,extended release 24 hr Pressure
acetaminophen 325 mg tablet 650 mg PO Q4HPRN PRN mild 10/14/23 09/10/24 History
pain/temp>100F
benzonatate 100 mg capsule 100 mg PO Q8HPRN PRN cough 10/14/23 09/10/24 History
budesonide 0.25 mg/2 mL suspension 0.25 mg inhalation R [id number] PRN 10/14/23 09/10/24 History
for nebulization SOB/wheezing
midodrine 10 mg tablet 10 mg PO Q6H Blood Pressure 10/14/23 09/10/24 History
sennosides 8.6 mg tablet (senna) 8.6 mg PO HS Constipation 10/14/23 09/10/24 History
tramadol 50 mg tablet 50 mg PO Q6HPRN PRN moderate pain 10/14/23 09/10/24 History
vitamin B complex and vitamin C 1 cap PO HS Supplement 10/14/23 09/10/24 History
no.20-folic acid 1 mg capsule
warfarin 2 mg tablet 9 mg PO SUMOWEFRSA Blood Clot 10/14/23 09/10/24 History
Prevention/Tx
albuterol sulfate 90 mcg/actuation 2 puff inhalation R Q4HPRN PRN 09/07/24 09/10/24 History
aerosol inhaler asthma
cetirizine 10 mg tablet 10 mg PO DAILY Allergies 09/07/24 09/10/24 History
fluticasone furoate 200 1 inh inhalation R DAILY 09/07/24 09/10/24 History
mcg/actuation blister powder for Lung/Breathing Issues
inhalation (Arnuity Ellipta)
lamotrigine 150 mg tablet 150 mg PO BID Neurological 09/07/24 09/10/24 History
(Lamictal) Condition
melatonin 3 mg tablet 6 mg PO HSPRN PRN insomnia 09/07/24 09/10/24 History
trazodone 100 mg tablet 100 mg PO HS sleep 09/07/24 09/10/24 History
warfarin 10 mg tablet 10 mg PO TUTH Blood Clot 09/07/24 09/10/24 History
Prevention/Tx
bupropion HCl 150 mg tablet,12 hr 150 mg PO MOWEFR depression/anxiety 09/10/24 09/10/24 History
sustained-release (Wellbutrin SR)
Review of Systems
-
History Source: Patient
All other systems: Negative unless noted
Physical Exam
Vital Signs
Temp Pulse Resp BP Pulse Ox
98.2 F 114 16 92/58 97
09/13/24 11:10 09/13/24 11:10 09/13/24 11:10 09/13/24 11:10 09/13/24 11:10
GEN: NAD. PRADO x3 sitting up in chair watching TV
HEENT: EOMI, MMM
LUNGS: CTA B/L without wheeze or rales
CV: Irreg irreg, S1/S2, 1/6 syst LSB, no gallop
ABD: soft, BS+, NT, ND
EXT:Trace B/L LE edema. No clubbing, cyanosis or lesions B/L
NEURO: No focal or lateralizing weakness
SKIN: Warm, dry and pink. No rash
Lab Results
09/13/24 05:11
09/13/24 05:11
Impression / Plan
-
PCP: Dr. Flores at [facility]
Primary Diagram Clerk: last seen by Dr. Lovell in 2018
Assessment:
Admitted with HD fistual bleeding 09/10/24
Anemia, multifactorial
Afib with RVR
Permanent atrial fibrillation
NICM, EF was 25-30% by echo 05/26/22
Chronic HFrEF
s/p SJM Mechanical MVR 1997
Chronic Coumadin therapy
Severe tricuspid regurgitation
H/o ICD explant due to infection 2005
HTN
ESRD on HD
h/o CVA, by review of CT head with an area of encephalomalacia involving the right anterolateral frontal lobe 07/2015
Obstructive sleep apnea
Former smoker
ECHO 06/2018: Global hypokinesis, most marked in anterior and septal segments, EF 35 to 40%, normal function of mechanical MVR with peak/mean gradients 19/7 mmHg, no MR, dilated left atrium, dilated right ventricle, moderate TR, moderate pulmonary
hypertension, PAP 52 to 57 mmHg, atrial septal aneurysm
Echo 05/26/22: EF 25-30%, mechanical mitral valve with peak/mean 13/5 mmHg and no MR, aortic valve is normal, dilated and hypokinetic RV with dilated RA and mod MR with PAP 50-55 mmHg
Plan:
-Patient came to [facility] on Tuesday with bleeding from his HD fistula and was admitted with anemia and cardiology is now consulted for rapid Afib. Patient is originally from [place], [place] and has a complicated past medical history spread out over the
[facility]. He had a mechanical mitral valve while living in [place], [place] in 1997. He says this was for a history rheumatic heart disease as a child. Then sometime around 2008 he moved to [place], [place] with his and around that
time he says he had a marked deterioration in his renal function and was started on hemodialysis in response to hypertensive nephropathy. 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 During an admission to
[facility] in 2014 he required a trach. With the addition of trach to his dialysis, he could only be transferred to [facility] (now [facility]). He has been there ever since even though his trach was removed. Patient
lives in a 4 bedroom unit at [facility] where he is a long-term resident and travels [place] 3x a week for HD sessions. All of his family lives in [place], and his has since him. Afib is permanent and patient says he can hear his
heart beat due to mechanical valve, but no palpitations. Patient thinks he had a cardiac arrest while admitted to [facility] years ago that was related to amiodarone. He was on digoxin in 2015, but it was stopped for unclear reasons. Patient says he has
chest pain, he has chronic chest pain. INR was 2.85 on admission and he says INRs are checked every Tuesday with INR goal of 2.5 to 3.5. Vascular surgery performed fistulogram today and balloon angioplasty performed.
-Recommend tightening INR goal range to 2.5 to 3. INRs checked every Tuesday at [facility].
-Recent fall out of bed and left sided hematoma noted. Suspect this contributed to anemia. Would continue warfarin despite fall risk given that he has a mechanical MVR.
-Afib is permanent. HRs are generally poorly controlled over the years. Will increase Toprol XL back to 25 mg BID on non-HD days and 25 mg HS on HD days.
-Digoxin was tried in the past and stopped for unclear reasons.
-Patient reports he had a cardiac arrest with amiodarone at [facility] in 2014, but I cannot find any record of that. I cannot find any documentation that amiodarone is an allergy. Will not start amiodarone at this time due to this potential reaction in
the past.
-Check echo, ordered by me.
-Patient has a known CM, EF was 25% in 2021. GDMT has been difficult due to hypotension, remains in midodrine 10 mg q 6 hours.
-Cont Toprol XL as noted above.
-Patient cannot take MALU/ARB/aldosterone antagonist due to HD.
-Cont atorvastatin 20 mg daily.
[2024-09-13] MEDS: ROBITUSSIN 100 MG PO (11:47)
--- NOTE | 2024-09-13 12:16 | W.PN.NEPH.PH ---
Today's Communication / Plan
-
HD tomorrow
Assessment/Plan
-
Impression:
End-stage renal disease.
AV fistula bleed
Status post fall from bed with subsequent left buttock hematoma
Anemia.
Chronic hypotension on midodrine support
Hyperphosphatemia.
History of mechanical aortic valve on chronic anticoagulation
History of chronic lung disease.
History of AFib.
Plan:
HD tomorrow, orders provided
holding heparin on HD due to hematoma
still on coumadin with therapeutic INR for mAVR
midodrine continues
TIO on HD
-
-
Date of Service: September 13, 2024
CC / HPI / ROS
-
Chief Complaint:
ESRD
History of Present Illness:
tolerated HD yesterday
s/p AVFgram 09/12, PTCA small web only
BP stable low
Hgb stable 8.6
Review of Systems:
no CP/SOB
Labs
-
Labs:
WBC 9.2 10^3/uL (4.8-10.8) 09/13/24 05:11
RBC 2.99 10^6/uL (4.70-6.10) L 09/13/24 05:11
Hgb 8.6 g/dL (13.0-18.0) L 09/13/24 05:11
Hct 25.4 % (39.0-52.0) L 09/13/24 05:11
Plt Count 229 10^3/uL (130-400) 09/13/24 05:11
Sodium 138 mmol/L (135-145) 09/13/24 05:11
Potassium 3.8 mmol/L (3.5-5.1) 09/13/24 05:11
Chloride 97 mmol/L (98-107) L 09/13/24 05:11
Carbon Dioxide 26 mmol/L (22-30) 09/13/24 05:11
BUN 29 mg/dl (9-20) H 09/13/24 05:11
Creatinine 5.0 mg/dL (0.7-1.3) H* 09/13/24 05:11
eGFR 13.29 09/13/24 05:11
Glucose 95 mg/dl (70-99) 09/13/24 05:11
Calcium 9.1 mg/dl (8.4-10.2) 09/13/24 05:11
Albumin 4.2 g/dl (3.5-5.0) 09/10/24 14:01
Physical Exam
-
Vital Signs:
Vital Signs
Temp Pulse Resp BP Pulse Ox
98.1 F 117 16 108/67 97
09/13/24 11:40 09/13/24 11:40 09/13/24 11:40 09/13/24 11:40 09/13/24 11:40
Cardiovascular:: Regular rate and rhythm
Respiratory:: Bilateral: Coarse
Lung Excursion:: Normal
Abdomen:: Nontender and Soft
Bowel Sounds:: Normal
Extremity Edema:: None: Bilateral:
--- NOTE | 2024-09-13 14:38 | CM ---
Patient seen at bedside with physician. Patient for return to SNF when medically appropriate. CM will send updated clinical information to SNF. CM will continue to follow for discharge planning needs.
Plan; return to SNF
[2024-09-13] MEDS: COUMADIN 10 MG PO (18:30)
[2024-09-13] MEDS: DESENEX/MITRAZOL/ZEASORB 1 APPLIC TOPICAL (20:37)
[2024-09-13] MEDS: TOPROL XL 25 MG PO (20:38)
[2024-09-13] MEDS: NEPHROCAP 1 CAPSULE PO (22:17)
[2024-09-13] MEDS: NEURONTIN 300 MG PO (22:17)
[2024-09-13] MEDS: DESYREL 100 MG PO (22:17)
[2024-09-13] MEDS: SENOKOT 8.6 MG PO (22:17)
[2024-09-13] MEDS: LIPITOR 20 MG PO (22:17)
[2024-09-13] MEDS: MELATONIN 6 MG PO (23:56)
[2024-09-13] MEDS: ROXICODONE 5 MG PO (23:57)
[2024-09-14] VITALS (8 sets, daily range): BP systolic 72–94; BP diastolic 42–65; BMI 32.3
[2024-09-14] MEDS: ProAmatine 10 MG PO ×4 (06:10→22:53)
[2024-09-14] MEDS: CYTOMEL 75 MICROGRAM PO (06:10)
[2024-09-14] MEDS: SYNTHROID 300 MCG PO (06:10)
--- NOTE | 2024-09-14 07:07 | W.PN.HOSP.TC ---
Addendum entered and electronically signed by Clarisa Garcia MD 09/14/24 13:23:
I saw and evaluated the patient independently. I reviewed the resident�s note and agree with findings and plan as documented by Dr. Foss.
GENERAL: well developed, well nourished, obese male in no apparent distress
HEENT: NC/AT--baseline O2 NC in place
HEART: irreg irreg
LUNGS : clear to auscultation bilaterally
ABDOM: soft, nontender, nondistended, + bowel sounds
EXT: no cyanosis, clubbing, or edema--pain to palpation along left hip and upper thigh--not changed
NEUROLOGIC: grossly intact
Acute blood loss anemia on anemia of chronic disease likely due to AV fistula bleeding as well as hematomas in left hip--[facility] vascular--US done in ED shows Focal velocity elevation identified at the arteriovenous anastomosis at 372 cm/s (ratio
3.6) which may suggest a greater than 50% stenosis at this location--transfused 3 units pRBC in total so far for HGB 7.2 to 8.8--no need for further blood transfusion
Left hip hematoma status post fall--CT abdomen/pelvis Soft tissue stranding throughout the left gluteal/buttock region as well as numerous nodular foci largest measuring up to 7.9 cm most likely representing hematomas and likely exacerbated by
coumadin and INR of 3.8--follow serial H&H--Home dose tramadol, oxycodone 5 mg [id number]--Hytuf regimen with Colace, MiraLAX--[facility] vascular--CTA a/p showed no active bleeding
ESRD on HD ([facility])--[facility] nephrology--Evaluate if will need possible tunneled catheter due to AV fistula bleeding occurring twice--[facility] vascular had fistulogram now with good results
Mechanical mitral valve replacement on coumadin--INR on presentation 3.85--Held coumadin--INR 09/12 is 2.6 so restarting and follow INR--INR goal 2.5�3.5
Chronic hypotension--Continue midodrine--TSH 148 despite being on 300mcg of levothyroxine and 75mcg of liothyronine--no symptoms so IV therapy not indicated --random cortisol 21, no need for stress steroids--w/u for malabsorption as outpt--start
florinef
Permanent atrial fibrillation--Continue rate control with metoprolol (add holding parameters)-Monitor hemoglobin--apprec cards
Chronic hypoxic respiratory failure on home O2--Currently at baseline O2 3L
Hypothyroidism--Continue on home regimen--see above discussion with elevated TSH
DVT prophylaxis-- SCDs
CODE STATUS-- full code
Original Note:
Today's Communication/Plan
-
d/c today
Assessment / Plan
Assessment / Plan
IMPRESSION/PLAN:
#Acute blood loss anemia on AOCD due to AV fistula bleeding
-Ultrasound of AV fistula: Patent left radiocephalic arteriovenous fistula Focal velocity elevation is identified at the arteriovenous anastomosis at 372 cm/s (ratio 3.6) which may suggest a greater than 50% stenosis at this location
-Hgb 8.3 today.
-Vascular input appreciated. Fistulogram balloon angioplasty of the area with good result.
-Vascular following.
#Left hip hematoma status post fall
-CT abdomen/pelvis Soft tissue stranding throughout the left gluteal/buttock region as well as numerous nodular foci largest measuring up to 7.9 cm most likely representing hematomas
-Hgb today 8.3. Received total of 3 units of blood this admission.
-Continue Home dose tramadol, oxycodone 5 mg Q6 prn.
-Bowel regimen with Colace, MiraLAX
-Vascular input appreciated.
-CT abd/pelv angio 09/11/24 -There is no evidence of extravasation associated with the left-sided soft tissues. There are multiple small arteries which course in the region of the hematoma however there is no discrete active bleed.
#ESRD on HD ([facility])
-Nephrology input appreciated.
-HD today.
#Mechanical mitral valve replacement
-INR 2.40
-On Coumadin.
-Monitor PT/INR
#Chronic hypotension
-Continue midodrine
-Cardiology input appreciated. Consideration to add florinef.
-TSH 148, Cortisol Normal.
#Permanent atrial fibrillation
-Tachycardic the last few days. Although Metoprolol was on hold due to soft BPs.
-Cardiology consulted. Input appreciated.
-Continue on Home dose Metoprolol for rate control.
#Chronic hypoxic respiratory failure on home O2
-Currently at baseline O2 3L
#Hypothyroidism
-TSH 148 this admission.
-Will need outpatient workup for malabsorption, thyroid ultrasound/MRI.
-discussed with salesperson men's furnishings if patient will need IV Levothyroxine, Patient asymptomatic at this time, will hold off on IV therapy.
-Continue on home regimen. Levothyroxine 300mcg, Liothyronine 75mcg.
DVT prophylaxis; SCDs
CODE STATUS; full code
Anticipated Discharge: Within 24 hours
Subjective/Interval History
-
Patient seen and examined at bedside. Currently on HD. pATIENT withOUT acute complaint.
Objective Data
-
Labs:
Laboratory Results
09/14/24
06:54
WBC Pending
Hgb Pending
Hct Pending
Plt Count Pending
PT Pending
INR Pending
Sodium Pending
Potassium Pending
Chloride Pending
Carbon Dioxide Pending
BUN Pending
Creatinine Pending
Glucose Pending
Calcium Pending
Vital Signs:
Vital Signs
Temp Pulse Resp BP Pulse Ox
98.3 F 105 19 90/52 97
09/14/24 03:36 09/14/24 06:10 09/14/24 03:36 09/14/24 06:10 09/14/24 03:36
I&O
09/13/24 09/14/24 09/15/24
06:59 06:59 06:59
Intake Total 680 / 680 420 / 420
Balance 680 / 680 420 / 420
Review of Systems
-
All other systems: Reviewed and negative (except as documented)
Physical Exam
-
General: Well Developed and No Apparent Distress
Respiratory: Clear to Auscultation
Cardiac: S1/S2 and Irregular Rhythm
GI: Soft, Nontender and Nondistended
Neuro: AO x 3
[2024-09-14 07:23] LABS: Hematocrit 25.8 % (39.0-52.0); Hemoglobin 8.3 g/dL (13.0-18.0); Mean Corp Hgb Conc. 32.2 g/dL (33.0-37.0); Mean Corpuscular Hgb 28.1 pg (27.0-31.0); Mean Corpuscular Volume 87.5 fL (80.0-94.0); Mean Platelet Volume 9.7 fL (7.4-10.4); Platelet Count 231 10^3/uL (130-400); Red Blood Cell Count 2.95 10^6/uL (4.70-6.10); Red Cell Dist. Width 18.5 % (11.5-14.5); White Blood Cell Count 9.4 10^3/uL (4.8-10.8)
[2024-09-14 07:29] LABS: PT 26.6 Sec (11.4-14.6)
[2024-09-14 07:41] LABS: Blood Urea Nitrogen 44 mg/dl (9-20); Calcium 9.4 mg/dl (8.4-10.2); Carbon Dioxide 27 mmol/L (22-30); Chloride 97 mmol/L (98-107); Estimated Creatinine Clearance 15 ml/min; Glucose 115 mg/dl (70-99); Potassium 4.4 mmol/L (3.5-5.1); Sodium 138 mmol/L (135-145)
--- NOTE | 2024-09-14 08:23 | W.PN.CARDCBS ---
Addendum entered and electronically signed by Alirio Lovell MD 09/14/24 16:26:
I saw and examined the patient.
The Door Opener's note was reviewed and I agree with the note.
Comment:
GEN: No distress, awake, Ox3
HEENT: supple, anicteric, mmm
LUNGS: CTA, no wheezes/rales
CV: Irreg, S1/S2, 1/6 syst LSB, no gallop, +click
ABD: soft, BS+, NT/ND
EXT: No edema
NEURO: Gross non-focal
SKIN: No rash
Plan:
Remains in afib with adequate heart rates ~ 100bpm
Cont Toprol/Midodrine 10mg po q6
No Amio because of previous reaction
Echo has stable EF with stable MVR
Cont coumadin.
Original Note:
Today's Communication / Plan
-
continue toprol. limited treatment options of afib due to hypotension
follow HRs
continue midodrine
HD today
EF improved by echo
continue coumadin. goal INR 2.5-3
Impression / Plan
-
PCP: Dr. Flores at [facility]
Primary Disease Education Specialist: last seen by Dr. Lovell in 2018
Assessment:
Admitted with HD fistula bleeding 09/10/24 s/p fistula revision 09/13/24
Anemia, multifactorial
Afib with RVR
Permanent atrial fibrillation
Recovered NICM, EF was 25-30% by echo 05/26/22, now 50% by echo 09/13/24
Chronic HFrEF
s/p SJM Mechanical MVR 1997
Chronic Coumadin therapy
Severe tricuspid regurgitation
H/o ICD explant due to infection 2005
HTN
ESRD on HD MWF
h/o CVA, by review of CT head with an area of encephalomalacia involving the right anterolateral frontal lobe 07/2015
Obstructive sleep apnea
Former smoker
ECHO 06/2018: Global hypokinesis, most marked in anterior and septal segments, EF 35 to 40%, normal function of mechanical MVR with peak/mean gradients 19/7 mmHg, no MR, dilated left atrium, dilated right ventricle, moderate TR, moderate pulmonary
hypertension, PAP 52 to 57 mmHg, atrial septal aneurysm
Echo 05/26/22: EF 25-30%, mechanical mitral valve with peak/mean 13/5 mmHg and no MR, aortic valve is normal, dilated and hypokinetic RV with dilated RA and mod MR with PAP 50-55 mmHg
ECHO 09/13/24: EF 50%, mild concentric LVH, flattened septum in systole and diastole consistent with RV pressure and volume overload, well-seated mechanical mitral valve with mean gradient 6 mmHg, mild to moderate TR, PAP 75 to 80 mmHg
Plan:
-s/p fistula revision 09/13/24
-for HD today
-A-fib is permanent. Heart rate control has been limited by hypotension in past. Toprol XL increased back yesterday afternoon to 25 mg twice daily on nonHD days and 25 mg nightly on HD days. Follow heart rate trends
-He had been on digoxin in the past, however unclear if ideal medication for patient with end-stage renal disease. Patient reports he had cardiac arrest with amiodarone at [facility] in 2014, but cannot find any records of that or
records that Amio is listed as an allergy/intolerance
-EF was 25% in 2021. Echo from 09/13 with improvement in EF to 50%. Continue beta-brian. Not a candidate for MALU/ARB/Aldactone/SGLT2 due to hemodialysis
-Remains on midodrine 10 mg every 6 hours
-He was noted to have recent fall out of bed and left-sided buttock hematoma. He has mechanical MVR. Plan to tighten INR goal range 2.5-3. His INR is checked every Tuesday at custodial. INR 2.4 on 09/14.
PREADMIT DATA:
-Patient came to [facility] on Tuesday with bleeding from his HD fistula and was admitted with anemia and cardiology is now consulted for rapid Afib. Patient is originally from [place], [place] and has a complicated past medical history spread out over the
[facility]. He had a mechanical mitral valve while living in [place], [place] in 1997. He says this was for a history rheumatic heart disease as a child. Then sometime around 2008 he moved to [place], [place] with his and around that
time he says he had a marked deterioration in his renal function and was started on hemodialysis in response to hypertensive nephropathy. 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 During an admission to
[facility] in 2014 he required a trach. With the addition of trach to his dialysis, he could only be transferred to [facility] (now [facility]). He has been there ever since even though his trach was removed. Patient
lives in a 4 bedroom unit at [facility] where he is a long-term resident and [place] 3x a week for HD sessions. All of his family lives in [place], and his has since him. Afib is permanent and patient says he can hear his
heart beat due to mechanical valve, but no palpitations. Patient thinks he had a cardiac arrest while admitted to [facility] years ago that was related to amiodarone. He was on digoxin in 2014, but it was stopped for unclear reasons. Patient says he has
chest pain, he has chronic chest pain. INR was 2.85 on admission and he says INRs are checked every Tuesday with INR goal of 2.5 to 3.5. Vascular surgery performed fistulogram today and balloon angioplasty performed.
Progress Note - Disease Education Specialist
Subjective
Date of Service: September 14, 2024
reports some L arm soreness
Objective
Labs:
09/14/24 06:54
09/14/24 06:54
Labs
Hgb 8.3 g/dL (13.0-18.0) L 09/14/24 06:54
Hct 25.8 % (39.0-52.0) L 09/14/24 06:54
Plt Count 231 10^3/uL (130-400) 09/14/24 06:54
PT 26.6 Sec (11.4-14.6) H 09/14/24 06:54
INR 2.40 09/14/24 06:54
APTT 82.2 Sec (23.4-35.0) H 09/10/24 14:01
Sodium 138 mmol/L (135-145) 09/14/24 06:54
Potassium 4.4 mmol/L (3.5-5.1) 09/14/24 06:54
BUN 44 mg/dl (9-20) H 09/14/24 06:54
Creatinine 7.4 mg/dL (0.7-1.3) H* 09/14/24 06:54
Glucose 115 mg/dl (70-99) H 09/14/24 06:54
Vital Signs and I&O:
Vital Signs
Temp Pulse Resp BP Pulse Ox
98.3 F 100 18 90/52 97
09/14/24 03:36 09/14/24 07:41 09/14/24 07:41 09/14/24 06:10 09/14/24 03:36
Vital Signs
Temp Pulse Resp BP Pulse Ox
98.3 F 100 18 90/52 97
09/14/24 03:36 09/14/24 07:41 09/14/24 07:41 09/14/24 06:10 09/14/24 03:36
Intake & Output
09/12/24 09/13/24 09/14/24 09/15/24
07:59 07:59 07:59 07:59
Intake Total 1570 / 1770 680 / 680 420 / 420
Balance 1570 / 1770 680 / 680 420 / 420
Physical Exam
Physical Exam
GEN: No distress, awake, alert, oriented x3. on supp O2
HEENT: supple, anicteric, mmm, eomi
LUNGS: CTA B/L, no wheezes/rales
CV: Irreg, S1/S2, no murmur. + valve click
ABD: soft, BS+, NT/ND
EXT: No cyanosis, clubbing, edema
NEURO: Gross non-focal
SKIN: Warm, pink, dry, No rash. L forearm with dressing c/d/i
[2024-09-14] MEDS: RENVELA PO (08:25)
[2024-09-14] MEDS: PROTONIX 40 MG PO (08:26)
[2024-09-14] MEDS: LAMICTAL 150 MG PO ×2 (08:26→20:04)
[2024-09-14] MEDS: ROBITUSSIN 100 MG PO ×3 (08:26→22:52)
[2024-09-14] MEDS: ZYRTEC 10 MG PO (08:26)
[2024-09-14] MEDS: WELLBUTRIN SR (12 hour sustained release) 150 MG PO (08:28)
[2024-09-14] MEDS: DESENEX/MITRAZOL/ZEASORB 1 APPLIC TOPICAL ×2 (08:29→20:06)
--- NOTE | 2024-09-14 08:46 | W.PN.NEPH.HD ---
Assessment
-
Patient seen on hemodialysis
Systolic blood pressure low in the 90s at current UF
His baseline is chronically hypotensive despite midodrine administration
Left buttock hematoma pain still present but improving
Hemoglobin stable at 8.3 without further need of blood transfusion
Progress Note - Hemodialysis
-
Date of Service: September 14, 2024
Duration: 30 minutes and 3 hours
Potassium Bath: 3
Calcium Bath: 2.5
Opti-Dialyzer: 160
Ultrafiltration: Other (1.5 kg as tolerated)
Blood Flow: 400
Dialysate Flow: 600
Heparin: None
EPO: 10,000
[2024-09-14] MEDS: RETACRIT 10000 UNITS IV (09:55)
[2024-09-14] MEDS: RENVELA 800 MG PO ×2 (11:43→17:06)
--- NOTE | 2024-09-14 13:05 | CM ---
Addendum entered by Maye De Jesus 09/14/24 13:14:
Patient sister updated via phone about discharge.
Original Note:
Patient seen at bedside with physicians. Patient finished HD today nurse from HD to provide HD flow sheets for SNF. Patient SNF; [facility] updated and aware of return. Patient needing ambulance for transport. CM will call patient family to
update. Patient completed IMM and signed for placed on chart. CM will continue to follow for discharge planning needs.
Plan; return to SNF: [phone]/fax [phone].
--- NOTE | 2024-09-14 13:15 | W.DCSUMMARY ---
Addendum entered and electronically signed by Clarisa Garcia MD 09/16/24 07:00:
Agree with addendum as documented below.
Addendum entered and electronically signed by Keaton Foss MD, Resident 09/15/24 18:31:
Patient was initially discharged 09/14, but he refused to leave the hospital due to concerns about his blood pressure. Explained to patient Blood pressure readings have always been on the lower side, hence daily midodrine use. In addition we added
Florinef to his regimen. I discussed echo result to patient including functionality of the heart. Patient still insisted on staying. Discharge was cancelled.
On 09/15, patient complaining of swelling at fistula site. After discussion with vascular surgeon, An US HD graft was ordered. Ultrasound unremarkable without Issues. In addition, update note from cardiology today with NO objection to discharge from
cardiology standpoint. Discussed all these with patient. Patient agreeable to discharge today. Will return back to [place] today.
Date of Discharge 09/15/2024.
Addendum entered and electronically signed by Clarisa Garcia MD 09/14/24 17:32:
Read, reviewed, and agree. See same day progress note for additional details. Time spent coordinating care, DC planning, review of DC plan of care with resident, transition of care, review of records in EMR, med rec, consults, notes, d/w
consultants, nursing, family, and CM = 39 minutes
Florinef was started 0.1 mg daily for his BP--despite low readings, pt was asymptomatic--in addition, his TSH was 148--pt denies not taking or missing any doses of his thyroid meds--after speaking with endo, it is recommended that pt follow up with
GI for malabsorption workup---this may be contributing to his hypotension
Original Note:
Discharge Summary
Discharge Data
Date of Admission: 09/10/24
Date of Discharge: 09/14/24
Total time spent discharging patient (in min): 39
-
Pending Results: No
Hospital Course
Principal Discharge diagnosis : Acute blood loss anemia on anemia of chronic disease likely due to AV fistula bleeding, Left hip hematoma status post fall
Chronic Discharge diagnosis : ESRD on HD, Chronic hypotension, Permanent atrial fibrillation, Hypothyroidism, Chronic hypoxic respiratory failure on home O2
Hospital Course : This is a 48-year-old male with past medical history of ESRD on HD, COPD on home O2 (baseline 3 L), CVA, [place], mechanical mitral valve replacement on Coumadin use, presented to ER for evaluation of bleeding from AV fistula site
after hemodialysis session on Monday 09/10. Patient is typically scheduled for hemodialysis Mondays, Wednesdays, Fridays for ESRD. He reports he had a session prior to presentation, and after finishing the session, his AV fistula site continued
to bleed despite continuous pressure. In addition patient reports mechanical fall on from his bed. He reports he fell on his left hip. He reports not feeling pain initially, but as the days progressed, he continued to feel pain in his
left hip. He denied any head injury, loss of consciousness before the fall, headaches, vomiting, vision changes. On presentation to ER, blood pressure was 92/57, pulse 99, respiratory rate 20, afebrile with O2 sats 100% on 3 L of oxygen.
Laboratory results showed hemoglobin 7.2, hematocrit 22.0, PT 27.9, INR 3.85, potassium 3.4, BUN 17, creatinine 3.3, EGFR 21.88. While in the ER 2 nonadherent gauze pads, self anterior wrap and Felice wrap was placed, which showed good pressure.
Bleeding stopped, and he was redressed at bedside. Vascular surgery was consulted for evaluation.
Acute blood loss anemia on anemia of chronic disease likely due to AV fistula bleeding; Evaluation with an ultrasound of AV fistula showed Patent left radiocephalic arteriovenous fistula Focal velocity elevation is identified at the arteriovenous
anastomosis at 372 cm/s (ratio 3.6) which may suggest a greater than 50% stenosis at the location. He was transfused 2 units of PRBC in the emergency department, and a total of 3 units of PRBC throughout the course of the hospital stay. His
hemoglobin level remained stable without further need of blood transfusion. While in the hospital, a fistulogram balloon angioplasty of the area was done by vascular surgeon which showed good results. He had two hemodialysis sessions during the
course of his hospital stay with no new episodes of bleeding from site.
Left hip hematoma status post fall; Evaluation with CT abdomen/pelvis showed Soft tissue stranding throughout the left gluteal/buttock region as well as numerous nodular foci largest measuring up to 7.9 cm most likely representing hematomas and
likely exacerbated by Coumadin and INR of 3.8. Evaluation with a CT abdomen/pelvis angiogram showed no evidence of extravasation associated with the left-sided soft tissues. There are multiple small arteries which course in the region of the
hematoma however there is no discrete active bleed. He was continued on pain medication as needed. Hemoglobin and hematocrit were followed serially, in addition no evidence of acute blood loss from site.
Mechanical mitral valve replacement on Coumadin; INR on presentation 3.85. His Coumadin dosage was held for 2 days until INR at therapeutic level. INR 11/6 was 2.6 hence Coumadin was restarted with daily INR rechecks.
Chronic hypotension, permanent atrial fibrillation; patient with history of hypotension on midodrine. During the course of his hospital stay, he was noted to be hypotensive which was chronic for patient. He subsequently developed tachycardia,
although asymptomatic. Cardiology was consulted to evaluate patient. Patient's home dose metoprolol were initially not given due to his blood pressure numbers being low, with systolic in the 90s. Cardiology recommended his medication regimen be
restarted at his normal dosage 25 mg BID on non-HD days and 25 mg at Night on HD days. In addition, patient reported he had a cardiac arrest with amiodarone at [facility] in 2015. Although there were NO records of this. Recommendation was
to avoid amiodarone due to potential reaction in the past. He will be continued on outpatient midodrine regimen for his blood pressure. Random cortisol 21, with no need for stress steroids. Cardiology recommended consideration to start patient on
Florinef. On the day of discharge, his blood pressure was 72/48 after hemodialysis. He was given a one-time dose of Florinef.
Hypothyroidism; TSH on admission was 148 despite being on 300 mcg of levothyroxine and 75mcg of liothyronine. Patient reports he has been compliant with his medication regimen with no missed doses in the past. After discussion with tax accountant
recommended patient gets an outpatient workup for malabsorption. Since patient was asymptomatic, IV therapy was not indicated.
Chronic hypoxic respiratory failure on home O2; Throughout the course of his hospital stay, patient remained at Baseline O2 3L.
Important imaging findings :
Echocardiogram 09/13/2024: Left ventricle is small in size. Low normal left ventricular systolic function. Left ventricular ejection fraction is 50% by visual assessment. Mild concentric left ventricular hypertrophy. Flattened septum in systole and
diastole consistent with RV pressure and volume overload. Top normal right ventricular size. Mildly reduced right ventricular systolic function. Well seated mechanical prosthetic mitral valve. Mean gradient 6mmHg.
Mild to moderate tricuspid regurgitation. Estimated pulmonary artery pressure of 75-80 mmHg. Assuming a right atrial pressure of 15 mmHg.
Compared to prior study dated 05/25/2022 which was directly reviewed, left ventricular systolic function was previously severely reduced with reported LVEF 25-30%. Estimated pulmonary artery systolic pressure is also now higher, previously 50-55
mmHg.
Procedure findings :
Procedure:
1. Duplex assisted cannulation of left radiocephalic arteriovenous fistula.
2. Left upper extremity fistulogram and central venogram.
3. Balloon angioplasty of possible venous outflow stenosis/web in the antecubital fossa.
4. Supervision and interpretation.
Description of procedure:
Patient was identified, brought to the operating room. Placed on the table in the supine position. After the adequate administration of anesthesia, the patient was prepped and draped in the standard surgical fashion. A standard preoperative
timeout was undertaken and everybody was in agreement with the plan.
Under duplex assisted guidance the left cephalic vein outflow of the radiocephalic arteriovenous fistula was punctured and a central facing direction at the distal wrist. (After infiltration of the skin subcutaneous tissue with 1% lidocaine). A 5
Icelandic sheath was advanced over a 0.035 inch wire. Left upper extremity fistulogram and central venogram was obtained. This demonstrated patent fistula with somewhat tortuous outflow vein immediately adjacent to the sheath, and then aneurysmal
dilatation. Somewhat slowed flow through the aneurysmal portion. But no obvious stenosis. At the antecubital fossa there was an area of webbing but not a definitive stenosis. There is a confluence of veins there. There may have been a stenosis
but I could not say for sure. Outflow in the upper arm was through the basilic and cephalic veins. No evidence of central venous stenosis was identified. I then compressed the fistula and tried to do a fistulogram with compression. Proximal
fistula appeared patent. I difficulty refluxing across the anastomosis due to the high flow and large size of the aneurysmal fistula and making compression slightly difficult. But I did not identify definitive arterial anastomotic stenosis. At
this point I selectively cannulated the basilic vein under roadmap assisted guidance with a flopping of hydrophilic wire and a glide catheter. I then exchanged for a Storq wire. I then elected to perform balloon angioplasty of the antecubital
webbing/possible stenosis area. I used a 6 mm x 4 cm angioplasty balloon. Completion angiogram actually demonstrated improvement of the webbing/stenosis. This indicated there may have been indeed a stenosis there. At this point is very
satisfied. The wires and catheters were withdrawn. A 4 Monocryl pursestring stitch was placed around the sheath entry site. And the sheath was withdrawn while the stitch was tied down. Manual pressure was also gently applied. Hemostasis was
fully achieved. The patient tolerated procedure well and had a good thrill in the fistula upon completion.
Discharge Plan
-
Patient Disposition: Snf/SNF
Discharge Diagnosis/Procedures: Acute blood loss anemia on anemia of chronic disease likely due to AV fistula bleeding
Left hip hematoma status post fall
ESRD on HD
Mechanical mitral valve replacement on coumadin
Chronic hypotension
Permanent atrial fibrillation
Hypothyroidism
Condition: Fair
Diet: 2 Gram Sodium
Driving Restrictions: No driving for 48 hours
Bathing Restrictions: OK to Shower
Stand Alone Forms: DC Instr - Vascular OR
Referrals:
William Bellamy I., DO [Family Provider] - in one to two weeks
Mayer,[place], MD [Active] -
Prescriptions:
Continued
gabapentin 300 MG capsule
300 mg PO HS
polyethylene glycol 3350 17 GRAMS powder in packet
17 grams PO SUTUTHSA
sevelamer carbonate 800 MG tablet
800 mg PO MEALS
liothyronine 25 MICROGRAM tablet
75 mcg PO DAILY
atorvastatin 20 MG tablet
20 mg PO HS
levothyroxine 300 MCG tablet
300 mcg PO DAILY
pantoprazole 40 MG tablet,delayed release (DR/EC)
40 mg PO DAILY
bisacodyl [OneLAX Bisacodyl] 10 MG suppository
10 mg NC DAILYPRN PRN (Reason: constipation)
metoprolol succinate 25 mg tablet extended release 24 hr
25 mg PO MOWEFR@2200
metoprolol succinate 25 mg tablet extended release 24 hr
25 mg PO SUTUTHSA@0800,1999
budesonide 0.25 mg/2 mL Suspension For Nebulization
0.25 mg INHALATION R [id number] PRN (Reason: SOB/wheezing)
benzonatate 100 mg Capsule
100 mg PO Q8HPRN PRN (Reason: cough)
sennosides [senna] 8.6 mg Tablet
8.6 mg PO HS
warfarin 2 mg Tablet
9 mg PO SUMOWEFRSA
B complex with C 20-folic acid 1 mg Capsule
1 cap PO HS
midodrine 10 mg Tablet
10 mg PO Q6H
Rx Instructions:
09/10/24, hold for SBP>=150.
acetaminophen 325 MG tablet
650 mg PO Q4HPRN PRN (Reason: mild pain/temp>100F)
tramadol 50 mg tablet
50 mg PO Q6HPRN PRN (Reason: moderate pain)
lamotrigine [Lamictal] 150 mg Tablet
150 mg PO BID
cetirizine 10 mg Tablet
10 mg PO DAILY
warfarin 10 mg Tablet
10 mg PO TUTH
melatonin 3 mg Tablet
6 mg PO HSPRN PRN (Reason: insomnia)
trazodone 100 mg Tablet
100 mg PO HS
albuterol sulfate 90 mcg/actuation Hfa Aerosol Inhaler
2 puff INHALATION R Q4HPRN PRN (Reason: asthma)
Arnuity Ellipta 200 mcg/actuation Blister With Device
1 inh INHALATION R DAILY
bupropion HCl [Wellbutrin SR] 150 mg Tablet Sustained-Release 12 Hr
150 mg PO MOWEFR
Discharge Orders:
Discharge Patient (As Directed); Ordered 09/14/24
Ordered By: Keaton Foss
Discharge Date and Time
Print Language: SAMI
[2024-09-14] MEDS: FLORINEF 0.1 MG PO (13:54)
[2024-09-14] MEDS: COUMADIN 9 MG PO (17:10)
[2024-09-14] MEDS: TYLENOL 650 MG PO (17:23)
--- NOTE | 2024-09-14 17:23 | W.PN.UPDATE ---
Update Note
Progress Note Update
Called to see patient at bedside to answer questions. Patient states he does not want to leave the hospital today, as 'he is worried about his Blood pressure.' Explained to patient Blood pressure has always been on the lower side, hence the daily
midodrine. In addition, we added Florinef to his regimen. Explained echo result to patient including functionality of the heart. Patient still insisting on staying in the hospital. Will cancel D/C order. Will update prorate clerk.
[2024-09-14] MEDS: ROXICODONE 5 MG PO (20:06)
[2024-09-14] MEDS: MELATONIN 6 MG PO (22:52)
[2024-09-14] MEDS: NEPHROCAP 1 CAPSULE PO (22:53)
[2024-09-14] MEDS: NEURONTIN 300 MG PO (22:53)
[2024-09-14] MEDS: DESYREL 100 MG PO (22:53)
[2024-09-14] MEDS: LIPITOR 20 MG PO (22:53)
[2024-09-14] MEDS: SENOKOT 8.6 MG PO (22:53)
[2024-09-15 03:53] VITALS: BP 92/55
[2024-09-15] MEDS: ProAmatine 10 MG PO ×3 (05:36→17:05)
[2024-09-15] MEDS: CYTOMEL 75 MICROGRAM PO (05:37)
[2024-09-15] MEDS: SYNTHROID 300 MCG PO (05:37)
[2024-09-15 06:00] VITALS: BMI 32.3
[2024-09-15 07:10] VITALS: BP 92/56
--- NOTE | 2024-09-15 07:15 | W.PN.HOSP.TC ---
Addendum entered and electronically signed by Clarisa Garcia MD 09/15/24 13:00:
I saw and evaluated the patient independently. I reviewed the resident�s note and agree with findings and plan as documented by Dr. Foss.
GENERAL: well developed, well nourished, obese male in no apparent distress
HEENT: NC/AT--baseline O2 NC in place
HEART: irreg irreg
LUNGS : clear to auscultation bilaterally
ABDOM: soft, nontender, nondistended, + bowel sounds
EXT: no cyanosis, clubbing, or edema--pain to palpation along left hip and upper thigh--not changed
NEUROLOGIC: grossly intact
Acute blood loss anemia on anemia of chronic disease likely due to AV fistula bleeding as well as hematomas in left hip--apprec vascular--US done in ED shows Focal velocity elevation identified at the arteriovenous anastomosis at 372 cm/s (ratio
3.6) which may suggest a greater than 50% stenosis at this location--transfused 3 units pRBC in total so far for HGB 7.2 to 8.8--no need for further blood transfusion--Today, patient complaining of swelling at fistula site--I discussed with Vascular
Surgeon and will order US HD graft--if US without issues, pt can return back to [place] today, if not then tomorrow
Left hip hematoma status post fall--CT abdomen/pelvis Soft tissue stranding throughout the left gluteal/buttock region as well as numerous nodular foci largest measuring up to 7.9 cm most likely representing hematomas and likely exacerbated by
coumadin and INR of 3.8--follow serial H&H--Home dose tramadol, oxycodone 5 mg S2bfg--Fvxmx regimen with Colace, MiraLAX--apprec vascular--CTA a/p showed no active bleeding
ESRD on HD ([facility])--apprec nephrology--Evaluate if will need possible tunneled catheter due to AV [facility] bleeding occurring [facility] with good results
Mechanical mitral valve replacement on coumadin--INR on presentation 3.85--Held coumadin--INR 09/12 is 2.6 so restarting and follow INR--INR goal 2.5�3.5
Chronic hypotension--Continue midodrine--TSH 148 despite being on 300mcg of levothyroxine and 75mcg of liothyronine--no symptoms so IV therapy not indicated --random cortisol 21, no need for stress steroids--w/u for malabsorption as outpt--started
florinef
Permanent atrial fibrillation--Continue rate control with metoprolol (add holding parameters)-Monitor hemoglobin--apprec cards
Chronic hypoxic respiratory failure on home O2--Currently at baseline O2 3L
Hypothyroidism--Continue on home regimen--see above discussion with elevated TSH
DVT prophylaxis-- SCDs
CODE STATUS-- full code
hopeful d/c to SNF today if US OK
Original Note:
Today's Communication/Plan
-
.
Assessment / Plan
Assessment / Plan
IMPRESSION/PLAN:
#Acute blood loss anemia on AOCD due to AV fistula bleeding
-Ultrasound of AV fistula: Patent left radiocephalic arteriovenous fistula Focal velocity elevation is identified at the arteriovenous anastomosis at 372 cm/s (ratio 3.6) which may suggest a greater than 50% stenosis at this location
-Hgb stable
-Vascular input appreciated. Fistulogram balloon angioplasty of the area with good result.
-Vascular following.
-Today, patient complaining of swelling at fistula site. Attending discussed with Vascular Surgeon. Will order US HD graft.
#Left hip hematoma status post fall
-CT abdomen/pelvis Soft tissue stranding throughout the left gluteal/buttock region as well as numerous nodular foci largest measuring up to 7.9 cm most likely representing hematomas
-Hgb stable. Received total of 3 units of blood this admission.
-Continue Home dose tramadol, oxycodone 5 mg Q6 prn.
-Bowel regimen with Colace, MiraLAX
-Vascular input appreciated.
-CT abd/pelv angio 09/11/24 -There is no evidence of extravasation associated with the left-sided soft tissues. There are multiple small arteries which course in the region of the hematoma however there is no discrete active bleed.
#ESRD on HD ([facility])
-Nephrology input appreciated.
-HD as scheduled
#Mechanical mitral valve replacement
-INR appropriate
-On Coumadin.
-Monitor PT/INR
#Chronic hypotension
-Continue midodrine, started on florinef.
-Cardiology input appreciated.
-TSH 148, Cortisol Normal.
#Permanent atrial fibrillation
-Tachycardic the last few days. Although Metoprolol was on hold due to soft BPs (Now resumed)
-Cardiology consulted. Input appreciated.
-Continue on Home dose Metoprolol for rate control.
#Chronic hypoxic respiratory failure on home O2
-Currently at baseline O2 3L
#Hypothyroidism
-TSH 148 this admission.
-Will need outpatient workup for malabsorption, thyroid ultrasound/MRI???
-discussed with russian history professor if patient will need IV Levothyroxine, Patient asymptomatic at this time, will hold off on IV therapy.
-Continue on home regimen. Levothyroxine 300mcg, Liothyronine 75mcg.
DVT prophylaxis; SCDs
CODE STATUS; full code
Medically stable for discharge yesterday. Discharge orders placed in, but patient insisting on staying due to concerns of Low Blood pressure.
Anticipated Discharge: Within 24 hours
Subjective/Interval History
-
Date of Service: September 15, 2024
Objective Data
-
Labs:
Laboratory Results
09/15/24 09/15/24
07:06 07:07
WBC Pending
Hgb Pending
Hct Pending
Plt Count Pending
PT Pending
INR Pending
Sodium Pending
Potassium Pending
Chloride Pending
Carbon Dioxide Pending
BUN Pending
Creatinine Pending
Glucose Pending
Calcium Pending
Vital Signs:
Vital Signs
Temp Pulse Resp BP Pulse Ox
98.3 F 97 18 92/55 97
09/15/24 03:53 09/15/24 05:36 09/15/24 03:53 09/15/24 05:36 09/15/24 03:53
I&O
09/14/24 09/15/24 09/16/24
06:59 06:59 06:59
Intake Total 420 / 420 1290 / 1290
Balance 420 / 420 1290 / 1290
Review of Systems
-
All other systems: Reviewed and negative (except as documented. )
Physical Exam
-
General: Well Nourished and No Apparent Distress
Respiratory: Clear to Auscultation
Cardiac: S1/S2
GI: Soft, Nontender and Nondistended
Neuro: AO x 3
[2024-09-15 08:08] LABS: Hematocrit 26.7 % (39.0-52.0); Hemoglobin 8.5 g/dL (13.0-18.0); Mean Corp Hgb Conc. 31.8 g/dL (33.0-37.0); Mean Corpuscular Volume 87.8 fL (80.0-94.0); Mean Platelet Volume 9.8 fL (7.4-10.4); Platelet Count 239 10^3/uL (130-400); Red Blood Cell Count 3.04 10^6/uL (4.70-6.10); Red Cell Dist. Width 18.6 % (11.5-14.5); White Blood Cell Count 8.3 10^3/uL (4.8-10.8)
[2024-09-15 08:16] LABS: INR 2.74
[2024-09-15 08:20] LABS: Blood Urea Nitrogen 34 mg/dl (9-20); Calcium 9.4 mg/dl (8.4-10.2); Carbon Dioxide 31 mmol/L (22-30); Chloride 96 mmol/L (98-107); Estimated Creatinine Clearance 20 ml/min; Glucose 102 mg/dl (70-99); Potassium 4.2 mmol/L (3.5-5.1); Sodium 138 mmol/L (135-145); eGFR 11.85
--- NOTE | 2024-09-15 08:51 | W.PN.NEPH.PH ---
Today's Communication / Plan
-
Possible discharge today
Next dialysis will be on Tuesday
Assessment/Plan
-
Impression:
End-stage renal disease.
AV fistula bleed
Status post fall from bed with subsequent left buttock hematoma
Anemia.
Chronic hypotension on midodrine support
Hyperphosphatemia.
History of mechanical aortic valve on chronic anticoagulation
History of chronic lung disease.
History of AFib.
Plan:
HD Tuesday
holding heparin on HD due to hematoma
still on coumadin with therapeutic INR for mAVR
midodrine continues
TIO on HD
-
-
Date of Service: September 15, 2024
CC / HPI / ROS
-
Chief Complaint:
ESRD
History of Present Illness:
tolerated HD yesterday
ESRD Tuesday
s/p AVFgram 09/12, PTCA small web only
BP stable low
Hgb stable 8.6
Review of Systems:
no CP/SOB
Labs
-
Labs:
WBC 8.3 10^3/uL (4.8-10.8) 09/15/24 07:33
RBC 3.04 10^6/uL (4.70-6.10) L 09/15/24 07:33
Hgb 8.5 g/dL (13.0-18.0) L 09/15/24 07:33
Hct 26.7 % (39.0-52.0) L 09/15/24 07:33
Plt Count 239 10^3/uL (130-400) 09/15/24 07:33
Sodium 138 mmol/L (135-145) 09/15/24 07:33
Potassium 4.2 mmol/L (3.5-5.1) 09/15/24 07:33
Chloride 96 mmol/L (98-107) L 09/15/24 07:33
Carbon Dioxide 31 mmol/L (22-30) H 09/15/24 07:33
BUN 34 mg/dl (9-20) H 09/15/24 07:33
Creatinine 5.5 mg/dL (0.7-1.3) H* 09/15/24 07:33
eGFR 11.85 09/15/24 07:33
Glucose 102 mg/dl (70-99) H 09/15/24 07:33
Calcium 9.4 mg/dl (8.4-10.2) 09/15/24 07:33
Albumin 4.2 g/dl (3.5-5.0) 09/10/24 14:01
Physical Exam
-
Vital Signs:
Vital Signs
Temp Pulse Resp BP Pulse Ox
98.2 F 103 16 92/56 97
09/15/24 07:10 09/15/24 07:29 09/15/24 07:29 09/15/24 07:10 09/15/24 07:29
Cardiovascular:: Regular rate and rhythm
Respiratory:: Bilateral: Coarse
Lung Excursion:: Normal
Abdomen:: Nontender and Soft
Bowel Sounds:: Normal
Extremity Edema:: None: Bilateral:
[2024-09-15] MEDS: LAMICTAL 150 MG PO (09:36)
[2024-09-15] MEDS: RENVELA 800 MG PO ×3 (09:37→17:05)
[2024-09-15] MEDS: PROTONIX 40 MG PO (09:37)
[2024-09-15] MEDS: ZYRTEC 10 MG PO (09:37)
[2024-09-15] MEDS: FLORINEF 0.1 MG PO (09:37)
[2024-09-15] MEDS: DESENEX/MITRAZOL/ZEASORB 1 APPLIC TOPICAL (09:41)
[2024-09-15] MEDS: TOPROL XL 25 MG PO (09:57)
[2024-09-15] MEDS: MIRALAX 17 GRAMS PO (09:58)
--- NOTE | 2024-09-15 10:49 | W.PN.UPDATE ---
Update Note
Progress Note Update
Reviewed chart, no objection to discharge from a cardiology standpoint.
Please call us back if any further questions.
[2024-09-15 11:30] VITALS: BP 87/49
[2024-09-15] MEDS: ROXICODONE 5 MG PO (13:39)
--- NOTE | 2024-09-15 14:23 | CM ---
Addendum entered by Valencia Garcia 09/15/24 15:28:
Transport at 1800
Notified Myra at [facility]
Discussed with pt - pt reports he will contact family regarding transport time
If pts wheel chair and port O2 can not be transferred with him to [facility] will sweet pickle maker on Tuesday per Myra at facility
Original Note:
Pt for discharge today
Spoke with Myra at [facility]
Transport to be arranged
Plan - return to [facility]
R - [phone]
F - [phone]
[2024-09-15 15:10] VITALS: BP 84/52
[2024-09-15] MEDS: COUMADIN 9 MG PO (17:08)
--- NOTE | 2024-09-15 18:10 | PTCARENOTE ---
pt discharged today WC remained here facility will come and pick it up on Tuesday. WC placed in the clean utility with pt label.
== END 2024-09-15 18:21 | DRG 314 ==
LOC: 2 NORTH 18:43
PROVIDERS: Nurse Practitioner; Nurse Practitioner Gerontology; Physician Assistant Medical; Student in an Organized Health Care Education/Training Program; ADMITTING PHYSICIAN Internal Medicine; CONSULT PHYSICIAN Internal Medicine Cardiovascular Disease; CONSULT PHYSICIAN Specialist; CONSULT PHYSICIAN Surgery Vascular Surgery; EMERGENCY PHYSICIAN Emergency Medicine; FAMILY PHYSICIAN Internal Medicine
PROC: 30233N1 Transfusion of Nonautologous Red Blood Cells into Peripheral Vein, Percutaneous Approach (ICD-10-PCS; 2024-09-10)
DX: T82.838A Hemorrhage due to vascular prosthetic devices, implants and grafts, initial encounter (principal); N18.6 End stage renal disease; D62 Acute posthemorrhagic anemia; D68.32 Hemorrhagic disorder due to extrinsic circulating anticoagulants; I48.21 Permanent atrial fibrillation; J96.11 Chronic respiratory failure with hypoxia; I13.2 Hypertensive heart and chronic kidney disease with heart failure and with stage 5 chronic kidney disease, or end stage renal disease; Y82.8 Other medical devices associated with adverse incidents; S70.02XA Contusion of left hip, initial encounter; W18.39XA Other fall on same level, initial encounter; E66.01 Morbid (severe) obesity due to excess calories; E03.9 Hypothyroidism, unspecified; Z68.32 Body mass index [BMI] 32.0-32.9, adult
CPT/HCPCS: 36430; 36902; 74174; 74177; 80048; 80053; 82533; 83735; 84443; 85014; 85018; 85025; 85027; 85610; 85730; 86850; 86900; 86901; 86920; 87070; 87811; 93306; 93990; 94640; 96360; 96361; 99284; 99291; C1725; C1769; C1894; G0257; J2916; P9016; P9047; Q5106; Q9967

== ENCOUNTER → 2024-12-04 08:55 | Outpatient (REF) | payer MEDICARE, OTHER, SELFPAY | LOC: RAD 08:55 | PROVIDERS: ATTENDING PHYSICIAN Surgery Vascular Surgery; FAMILY PHYSICIAN Internal Medicine | DX: Z99.2 Dependence on renal dialysis (principal); N18.6 End stage renal disease; I77.0 Arteriovenous fistula, acquired | CPT/HCPCS: 93990 ==

== ENCOUNTER → 2024-12-19 10:05 | Outpatient (REF) | payer OTHER, SELFPAY ==
[2024-12-19 10:57] LABS: Hemoglobin 7.3 g/dL (13.0-18.0)
== END ==
LOC: OLAB 10:05
PROVIDERS: ATTENDING PHYSICIAN Internal Medicine
DX: N18.6 End stage renal disease (principal)
CPT/HCPCS: 85018

== ENCOUNTER 2024-12-20 20:01 | Inpatient (IN) | payer MEDICARE, OTHER, SELFPAY ==
[2024-12-19 12:33] VITALS: BP 99/58
--- NOTE | 2024-12-19 13:33 | ED.GENMED ---
History of Present Illness
General
Chief Complaint: Vascular Access Problem
Source: patient
Exam Limitations: none
Time Seen by Provider: 12/19/24 13:29
Nursing documentation reviewed up to this point in time: agreed with
History of Present Illness
History of Present Illness:
This is a 49-year-old male with past medical history of asthma, COPD, ESRD on dialysis, hypertension, diabetes who presents emergency department today with drainage from his left AV fistula for the past 2 weeks. Patient states that he also started
to have pain from the site the past week. He states that he has had clear to yellowish drainage from the site. He did receive dialysis today and was able to complete the session without any issues. Patient denies any nausea vomiting fevers or
chills. Patient denies any chest pain or shortness of breath. Dr. Mayer performed his previous vascular surgeries. Patient is supposed to have surgery with Dr. Mayer tomorrow for revision of his fistula. Patient receives dialysis at the infusion
center at [facility]
Past History
Past History
ED Past Medical History: Arrthythmia (Atrial fibrillation), Asthma, HTN, Hypercholesterolemia, NIDDM, [place], Renal failure (End stage.), Valvular disease, Hypothyroidism and Other (Acute and chronic respiratory failure, sepsis, endocarditis, mitral
valve, depressive episodes, anemia, morbid obesity, pulmonary hypertension, Pulmonary edema, Colitis, GI bleeding. Dialysis, Ulcers)
ED Past Surgical History: Cardiac (Heart valve prosthesis) and Other
Social History
Tobacco: Former smoker
Alcohol: Occasional
Drug: None
Personal:
Living: fpc ( [facility])
Employment: Not employed
Family History
Family History: Hypertension
Review of Systems
Review of Systems
All Other Systems: ROS reviewed and negative except as documented in HPI and ROS
Phy Exam
Physical Exam
Physical Exam:
General: Patient is well appearing and in no acute distress; non-toxic
Skin: Warm and dry, dark brown to black area of ulcerated skin over the left AV fistula, no purulent drainage
Head: Normocephalic, atraumatic
Eyes: Sclera non-icteric. EOMs intact.
Cardiac: Regular rate and rhythm, no murmur
Peripheral Vascular: Left upper extremity AV fistula with positive thrill
Pulm: Normal respiratory effort, no wheezes, rales, rhonchi
Neuro: CN II-XII intact, no focal neurologic deficits.
Psychiatric: Appropriate mood and affect.
Course
Orders/Labs/Results
Orders:
Orders
12/19/24 13:46
IV Insert/Care/Rem.- Treatment PRN
Morphine Sulfate 4 mg IV NOW STA
12/19/24 14:10
Complete Blood Count/With Diff Urgent
Comprehensive Metabolic Panel Urgent
12/19/24 Dinner
Cholesterol Lowering
At Your Request: Non-Participating
Does patient need a safe tray?: No
Cholesterol Lowering: Sodium, 2 Gram
12/19/24 16:07
Admit/Transfer Patient As Directed
Co-Sign Provider:
Level of Care: Observation services
Assign to:: Medical/Surgical
Physician / Group: Melissa Freeman
Diagnosis: AV fistula ulceration
12/19/24 16:08
Code Status As Directed
Resuscitation Status: Full Code
PRN Pain Medication Management As Directed
May give lesser potent ordered pain med per pt: Yes
preference::
Protocol:: Medication orders for pain may be administered in a
manner that supports deferring to patient preference
when the pt is:
- Requesting an ordered lesser potent pain medication.
Least to most potent pain medications are defined
as: acetaminophen < NSAID < tramadol < opioids
(morphine, oxycodone, hydromorphone).
- Requesting a lesser dose of the same medication IF
ORDERED.
- Requesting a less intrusive route of administration
if both routes are prescribed by the provider (PO <
IV).
Abnormal Lab Results
12/19/24
14:10
RBC 2.93 L 10^6/uL
(4.70-6.10)
Hgb 8.3 L g/dL
(13.0-18.0)
Hct 27.1 L %
(39.0-52.0)
MCHC 30.6 L g/dL
(33.0-37.0)
RDW 18.2 H %
(11.5-14.5)
Absolute Lymphs (auto) 0.4 L 10^3/uL
(1.2-3.4)
Neutrophils % 86.5 H %
(42.2-75.2)
Lymphocytes % 6.4 L %
(20.5-51.1)
Potassium 3.3 L mmol/L
(3.5-5.1)
Chloride 95 L mmol/L
(98-107)
BUN 8 L mg/dl
(9-20)
Creatinine 2.8 H mg/dL
(0.7-1.3)
12/19/24 14:10
12/19/24 14:10
Vital Signs
Initial and Last Documented VS:
Initial Vital Signs
Temp
98.2 F
12/19/24 12:31
Last Documented Vital Signs
Temp Pulse Resp BP Pulse Ox
98.2 F 100 20 99/58 100
12/19/24 12:31 12/19/24 12:33 12/19/24 12:33 12/19/24 12:33 12/19/24 12:33
MDM/Problems Addressed
Differential Diagnosis Includes:
Skin ulcer, cellulitis, dialysis fistula complication
MDM/Problems Addressed:
49-year-old male presents emergency department today with concerns of increasing pain and ulcerated skin over his left AV fistula site for dialysis. Dr. Mayer, patient's vascular surgeon, came in to see patient in the ER would like patient to be
admitted for the hospital tonight to get a revision of his fistula tomorrow and will likely require graft of this fistula. No evidence of infection on physical exam. Case discussed with Dr. Mayer and vascular INTEGRATED [employer]IST[employer]PERATIONS MANAGER. Patient referred for admission.
Chronic conditions affecting care: DM, HTN, CAD and Kidney disease
*Pulse Oximetry
Patient hypoxic: no
*Critical Care Note
Total Time (30-74mins, 75-104mins- exclusive of procedures): Not Applicable
Data Reviewed
Review of Other/Old Records Reveals: Records (Reviewed update note from Dr. Mayer on 09/13/2024 reviewed fistula)
Source: patient
ED Attending Note
-
Portions of this chart may have been created with voice recognition software.� Occasional wrong word or��sound alike� substitutions may have occurred due to the inherent limitations of voice recognition software.
Discharge Plan
Departure
Patient Disposition: Admit
Date of Disposition: 12/19/24
Time of Disposition: 15:04
Admit to: Med/Surg
Presentation/result/management discussed w/ accepting MD/DO: Hospitalist
Condition: Fair
Discharge Problem:
Problem with vascular access
Interventions
Interventions:
*Risk Screen - Suicide Last Done: 12/19/24 12:31
*General Assessment Last Done: 12/19/24 12:31
*Neglect/Abuse Screening Last Done: 12/19/24 12:31
[2024-12-19] MEDS: MORPHINE SULFATE 4 MG IV (14:09)
[2024-12-19 14:34] LABS: % Basophils 0.9 % (0-2); % Eosinophils 1.2 % (0-6); % Immature Granulocytes 0.3 % (0-0.5); % Lymphocytes 6.4 % (20.5-51.1); % Monocytes 4.7 % (1.7-9.3); % Neutrophils 86.5 % (42.2-75.2); Absolute Basophils 0.1 10^3/uL (0-0.2); Absolute Eosinophils 0.1 10^3/uL (0-0.7); Absolute Lymphocytes 0.4 10^3/uL (1.2-3.4); Absolute Monocytes 0.3 10^3/uL (0.1-0.6); Hematocrit 27.1 % (39.0-52.0); Hemoglobin 8.3 g/dL (13.0-18.0); Mean Corp Hgb Conc. 30.6 g/dL (33.0-37.0); Mean Corpuscular Hgb 28.3 pg (27.0-31.0); Mean Corpuscular Volume 92.5 fL (80.0-94.0); Mean Platelet Volume 9.4 fL (7.4-10.4); Nucleated Red Blood Cells % 1.2 % (-); Platelet Count 225 10^3/uL (130-400); Red Blood Cell Count 2.93 10^6/uL (4.70-6.10); Red Cell Dist. Width 18.2 % (11.5-14.5); White Blood Cell Count 5.8 10^3/uL (4.8-10.8)
--- NOTE | 2024-12-19 14:42 | CON.VAS ---
Addendum entered and electronically signed by Phoenix Mayer MD 12/20/24 07:14:
Seen and examined with CARLITO Bella yesterday. Agree with findings/plan.
Addendum entered and electronically signed by FABIEN Beltran 12/19/24 16:32:
Clarified with medication reconciliation that patient is taking once a day Lovenox injection for anticoagulation, would prefer that he hold this evening dose reviewed with medical team who are in agreement to hold Lovenox injection for this evening
for surgery tomorrow.
Original Note:
Consultation
Consultation Request
Date/Time Consultation Performed: 12/19/24
Requesting Provider: ED physician
Performing Provider: BUBBA RaviC for Phoenix Mayer MD
Reason for Consultation: Ulceration over AV fistula
Medical History
-
Chief Complaint: Ulceration over AV fistula
History of Present Illness:
This is a 49-year-old male presenting to the ER from HD for concern of worsening breakdown of skin over AV fistula with clear ulceration. Significant past medical history of ESRD on HD, DC, CVA, COPD on home O2, Valve replacement, afib on Coumadin.
Patient has ongoing ulceration over left upper extremity AV fistula and was scheduled as an outpatient for revision of fistula tomorrow with Dr. Phoenix Mayer. Patient does note continued prolonged bleeding following HD sessions, otherwise offers no
complaints. Currently denies active bleeding from fistula. Endorses successfully completing entirety of HD session. Does note worsening ulceration over AV fistula over the past couple days worsened by today's HD session, notes scabbing over
distal end of AV fistula unchanged. Denies any signs of infection including arrhythmia, purulent drainage, fever, chills, nausea, and vomiting. Patient currently holding Coumadin and on Lovenox bridge for procedure that was scheduled for tomorrow
with Dr. Phoenix Mayer.
Past vascular surgical history:
08/24/16- Left upper extremity fistulogram with central venogram Phoenix Mayer MD
08/29/16- Superficialization of left upper extremity radiocephalic arteriovenous fistula Phoenix Mayer MD
02/24/23- Left upper extremity fistulogram, central venogram, balloon angioplasty of perianastomotic stenosis Phoenix Mayer MD
09/13/24-left upper extremity fistulogram and central venogram, balloon angioplasty of possible venous outflow stenosis/women in the anticubital fossa Phoenix Mayer MD
Past Medical History
Past Medical History: Arrhythmias, Asthma, CHF, COPD, CVA, HTN, Hypercholesterolemia, Hypothyroidism, NIDDM, [place], Renal Failure, Seizures, Valvular Disease, Psychiatric and Other (Acute and chronic respiratory failure, sepsis, endocarditis, mitral
valve, depressive episodes, anemia, morbid obesity, pulmonary hypertension, Pulmonary edema, Colitis, GI bleeding. Dialysis, Ulcers)
Past Surgical History: Cardiac (Valve replacement, ICD explant due to infection 2005) and Other (Left upper extremity AV fistula creation)
Social History
Tobacco: Former Smoker
Alcohol: None
Drug: None
Living: Longterm
Allergies / Home Medications
Allergy/AdvReac Type Severity Reaction Status Date / Time
dalteparin,porcine Allergy Unknown Verified 12/14/24 14:53
enoxaparin Allergy Unknown, Verified 12/14/24 14:53
[facility] record
isosorbide Allergy Unknown, Verified 12/14/24 14:53
[facility] record
meperidine Allergy Unknown, Verified 12/14/24 14:53
[facility] record
piperacillin sodium Allergy Itching; Verified 12/14/24 14:53
[From Zosyn] Tolerated
AMOXICILLIN
shellfish derived Allergy ALLERGY-FISH Verified 12/14/24 14:53
EXCEPT TUNA
tazobactam sodium Allergy Itching Verified 12/14/24 14:53
[From Zosyn]
�Medication �Instructions �Recorded �Confirmed �Type
gabapentin 300 mg capsule 300 mg PO HS Pain 03/11/15 12/14/24 History
polyethylene glycol 3350 17 gram 17 grams PO SUTUTHSA constipation 02/23/17 12/14/24 History
oral powder packet
atorvastatin 20 mg tablet 20 mg PO HS High cholesterol 10/04/18 12/14/24 History
sevelamer carbonate 800 mg tablet 800 mg PO MEALS Kidney Disease 10/04/18 12/14/24 History
levothyroxine 300 mcg tablet 300 mcg PO DAILY Thyroid 01/16/20 12/14/24 History
pantoprazole 40 mg tablet,delayed 40 mg PO DAILY Gastrointestinal 01/17/20 12/14/24 History
release issue
metoprolol succinate 25 mg 25 mg PO MOWEFR@2200 Blood Pressure 02/13/23 12/14/24 History
tablet,extended release 24 hr
metoprolol succinate 25 mg 25 mg PO SUTUTHSA@0800,2000 Blood 02/13/23 12/14/24 History
tablet,extended release 24 hr Pressure
acetaminophen 325 mg tablet 650 mg PO Q4HPRN PRN mild 10/14/23 12/14/24 History
pain/temp>100F
budesonide 0.25 mg/2 mL suspension 0.25 mg inhalation R [id number] PRN 10/14/23 12/14/24 History
for nebulization SOB/wheezing
midodrine 10 mg tablet 10 mg PO Q6H Hold SBP >/= 150 10/14/23 12/14/24 History
sennosides 8.6 mg tablet (senna) 8.6 mg PO HS Constipation 10/14/23 12/14/24 History
tramadol 50 mg tablet 50 mg PO Q6HPRN PRN moderate pain 10/14/23 12/14/24 History
warfarin 2 mg tablet 2 mg PO HS Blood Clot Prevention/Tx 10/14/23 12/14/24 History
albuterol sulfate 90 mcg/actuation 2 puff inhalation R Q4HPRN PRN 09/07/24 12/14/24 History
aerosol inhaler asthma
cetirizine 10 mg tablet 10 mg PO DAILY Allergies 09/07/24 12/14/24 History
fluticasone furoate 200 1 inh inhalation R DAILY 09/07/24 12/14/24 History
mcg/actuation blister powder for Lung/Breathing Issues
inhalation (Arnuity Ellipta)
lamotrigine 150 mg tablet 150 mg PO BID Neurological 09/07/24 12/14/24 History
(Lamictal) Condition
melatonin 3 mg tablet 3 mg PO HS 09/07/24 12/14/24 History
warfarin 10 mg tablet 10 mg PO HS Blood Clot 09/07/24 12/14/24 History
Prevention/Tx
bupropion HCl 150 mg tablet,12 hr 150 mg PO MOWEFR depression/anxiety 09/10/24 12/14/24 History
sustained-release (Wellbutrin SR)
fludrocortisone 0.1 mg tablet 0.1 mg PO DAILY Blood pressure #30 09/14/24 12/14/24 Rx
tabs
benzonatate 100 mg capsule 100 mg PO Q8H PRN cough 12/14/24 12/14/24 History
bisacodyl 10 mg rectal suppository 10 mg TN DAILY PRN constipation 12/14/24 12/14/24 History
(Dulcolax (bisacodyl))
diphenhydramine HCl 25 mg tablet 25 mg PO Q6H PRN allergies 12/14/24 12/14/24 History
(Benadryl Allergy)
enoxaparin 150 mg/mL subcutaneous 150 mg SC DAILY 12/14/24 12/14/24 History
syringe (Lovenox)
liothyronine 50 mcg tablet 75 mcg PO DAILY 12/14/24 12/14/24 History
(Cytomel)
trazodone 150 mg tablet 150 mg PO HS 12/14/24 12/14/24 History
vitamin B complex and vitamin C 1 cap PO HS 12/14/24 12/14/24 History
no.20-folic acid 1 mg capsule
Review of Systems
-
History Source: Patient
Constitutional: Reports No Symptoms
EENT: Reports No Symptoms
Respiratory: Reports No Symptoms
Cardiac: Reports No Symptoms
Abdomen/GI: Reports No Symptoms
: Reports No Symptoms
Musculoskeletal: Reports No Symptoms
Skin: Reports Other (Ulceration over left extremity AV fistula)
Neurological: Reports No Symptoms
Endocrine: Reports No Symptoms
Physical Exam
Vital Signs
Temp Pulse Resp BP Pulse Ox
98.2 F 100 20 99/58 100
12/19/24 12:31 12/19/24 12:33 12/19/24 12:33 12/19/24 12:33 12/19/24 12:33
Lab Results
12/19/24 14:10
Physical Exam
General: No Apparent Distress and Comfortable
HEENT: Normocephalic, Anicteric and Atraumatic
Respiratory: Non Labored Respirations
Cardiac: Negative JVD
GI: Soft, Non Tender and Non Distended
Musculoskeletal: No Edema
Skin: Warm and Other (Left upper extremity AV fistula with positive thrill, recent HD performed this morning successfully, however clear breakdown and ulceration of skin is evident over fistula with aneurysmal appearing outpouching near antecubital
fossa, left hand warm)
Neuro: Awake and Alert
Assessment / Plan
-
Assessment: 49-year-old male significant medical history for end-stage renal disease on HD with left upper extremity AV fistula noted to have skin breakdown and ulceration over the past several weeks was initially planned for outpatient revision of
left extremity AV fistula for tomorrow, presents today from HD given concerns for continued skin breakdown and increased risk for bleeding
Plan:
Currently with no active bleeding but is high risk given clear breakdown of skin would recommend admitting to hospital and then we will proceed with scheduled left lower extremity AV fistula revision will likely require graft
No clear evidence of infection currently on physical exam
Has already initiated Lovenox bridge due to hold of Eliquis for upcoming surgery per cardiology recommendations, will continue with the evening dose but hold after midnight
N.p.o. midnight
I performed this shared service with the attending. I evaluated the patient meoh-sr-ieay and have entered clinical documentation as shown in the encounter note. I performed the following component(s):�history and physical exam. Note that medical
decision making is not final until attested by vascular attending.
[2024-12-19 14:51] LABS: ALT (SGPT) 21 U/L (0-50); AST (SGOT) 31 U/L (17-59); Albumin 4.1 g/dl (3.5-5.0); Alkaline Phosphatase 116 U/L (38-126); Blood Urea Nitrogen 8 mg/dl (9-20); Calcium 8.7 mg/dl (8.4-10.2); Carbon Dioxide 30 mmol/L (22-30); Chloride 95 mmol/L (98-107); Glucose 85 mg/dl (70-99); Potassium 3.3 mmol/L (3.5-5.1); Sodium 135 mmol/L (135-145); Total Bilirubin 1.3 mg/dl (0.2-1.3); Total Protein 7.6 g/dl (6.3-8.2); eGFR 26.49
--- NOTE | 2024-12-19 15:22 | PHANOTE ---
Med Rec Note
Called [facility] and spoke with RAZIA Fong - she will fax med list to [phone] (ED Fax) at 15:23
--- NOTE | 2024-12-19 15:30 | HPS.HSE ---
Family Physician
-
Family Physician: William Bellamy
Chief Complaint
-
AV fistula ulceration
History of Present Illness
Patient is a 49-year-old male with past medical history significant for HFrEF, ESRD on HD, DM II, hyperlipidemia, atrial fibrillation, hypothyroidism, obstructive sleep apnea and GERD who presented to [facility] ED for evaluation of AV
fistula ulceration. Patient states following HD session today they had a hard time getting the bleeding to stop so sent him to ED for evaluation. Dr. Mayer saw him in ED as he was scheduled for revision with him tomorrow. He recommended patient stay
to avoid any complications overnight and will continue with revision tomorrow. Patient denies any recent sick contact, no fever, chills, chest pain, nausea, vomiting, constipation or diarrhea.
Medical History
Past Medical History
Past Medical History: Reports Other
Additional Past Medical History:
HFrEF
ESRD on HD
DM II
hyperlipidemia
atrial fibrillation
hypothyroidism
obstructive sleep apnea
GERD
Past Surgical History: Reports Other
Additional Past Surgical History:
mitral valve replacement
AV fistula
Social History
Tobacco: Non-smoker
Alcohol: Occasional
Drug: None
Living: Care Home
Employment: Disabled
Family History
Family History: Not pertinent
Allergies / Home Medications
Allergies reflects when Allergies were last updated in [employer].
Home Medications with original date entered in [employer]
Allergy/Medication List:
Allergies
Allergy/AdvReac Type Severity Reaction Status Date / Time
dalteparin,porcine Allergy Unknown Verified 12/14/24 14:53
enoxaparin Allergy Unknown, Verified 12/14/24 14:53
[facility] record
isosorbide Allergy Unknown, Verified 12/14/24 14:53
[facility] record
meperidine Allergy Unknown, Verified 12/14/24 14:53
[facility] record
piperacillin sodium Allergy Itching; Verified 12/14/24 14:53
[From Zosyn] Tolerated
AMOXICILLIN
shellfish derived Allergy ALLERGY-FISH Verified 12/14/24 14:53
EXCEPT TUNA
tazobactam sodium Allergy Itching Verified 12/14/24 14:53
[From Zosyn]
Home Medications
gabapentin 300 mg capsule 300 mg PO HS Pain 03/11/15
polyethylene glycol 3350 17 gram oral powder packet 17 grams PO SUTUTHSA constipation 02/23/17
atorvastatin 20 mg tablet 20 mg PO HS High cholesterol 10/04/18
sevelamer carbonate 800 mg tablet 800 mg PO MEALS Kidney Disease 10/04/18
levothyroxine 300 mcg tablet 300 mcg PO DAILY Thyroid 01/16/20
pantoprazole 40 mg tablet,delayed release 40 mg PO DAILY Gastrointestinal issue 01/17/20
metoprolol succinate 25 mg tablet,extended release 24 hr 25 mg PO MOWEFR@2200 Blood Pressure 02/13/23
metoprolol succinate 25 mg tablet,extended release 24 hr 25 mg PO SUTUTHSA@0800,2000 Blood Pressure 02/13/23
acetaminophen 325 mg tablet 650 mg PO Q4HPRN PRN mild pain/temp>100F 10/14/23
budesonide 0.25 mg/2 mL suspension for nebulization 0.25 mg inhalation R [id number] PRN SOB/wheezing 10/14/23
midodrine 10 mg tablet 10 mg PO Q6 Hold SBP >/= 150 10/14/23
sennosides 8.6 mg tablet (senna) 8.6 mg PO HS Constipation 10/14/23
tramadol 50 mg tablet 50 mg PO Q6HPRN PRN moderate pain 10/14/23
albuterol sulfate 90 mcg/actuation aerosol inhaler 2 puff inhalation R Q4HPRN PRN asthma 09/07/24
cetirizine 10 mg tablet 10 mg PO DAILY Allergies 09/07/24
fluticasone furoate 200 mcg/actuation blister powder for inhalation (Arnuity Ellipta) 1 inh inhalation R DAILY Lung/Breathing Issues 09/07/24
lamotrigine 150 mg tablet (Lamictal) 150 mg PO BID Neurological Condition 09/07/24
melatonin 3 mg tablet 3 mg PO HS 09/07/24
bupropion HCl 150 mg tablet,12 hr sustained-release (Wellbutrin SR) 150 mg PO MOWEFR depression/anxiety 09/10/24
fludrocortisone 0.1 mg tablet 0.1 mg PO DAILY Blood pressure #30 tabs 09/14/24
benzonatate 100 mg capsule 100 mg PO Q8H PRN cough 12/14/24
bisacodyl 10 mg rectal suppository (Dulcolax (bisacodyl)) 10 mg CA DAILY PRN constipation 12/14/24
diphenhydramine HCl 25 mg tablet (Benadryl Allergy) 25 mg PO Q6H PRN allergies 12/14/24
enoxaparin 150 mg/mL subcutaneous syringe (Lovenox) 150 mg SC DAILY@1800 12/14/24
liothyronine 50 mcg tablet (Cytomel) 75 mcg PO DAILY 12/14/24
trazodone 150 mg tablet 150 mg PO HS 12/14/24
vitamin B complex and vitamin C no.20-folic acid 1 mg capsule 1 cap PO HS 12/14/24
Review of Systems
-
History Source: Patient
Constitutional: Reports No Symptoms
EENT: Reports No Symptoms
Respiratory: Reports No Symptoms
Cardiac: Reports No Symptoms
Abdomen/GI: Reports No Symptoms
: Reports No Symptoms
Musculoskeletal: Reports No Symptoms
Skin: Reports Other (ulceration over left arm AV fistula)
Neurological: Reports No Symptoms
Endocrine: Reports No Symptoms
Hematologic/Lymphatic: Reports No Symptoms
Psych: Reports No Symptoms
Physical Exam
Vital Signs
Vital Signs
Temp Pulse Resp BP Pulse Ox
98.2 F 100 20 99/58 100
12/19/24 12:31 12/19/24 12:33 12/19/24 12:33 12/19/24 12:33 12/19/24 12:33
Physical Exam
General: Well Developed, Well Nourished, No Apparent Distress, Comfortable, Conversant and Obese
HEENT: NormoCephalic, Moist mucous membranes, Atraumatic, [place] Conjunctivae, Nose Appears Normal and Ears Appear Normal
Respiratory: Clear, Non Labored Respirations and Decreased Breath Sounds
Cardiac: S1/S2 and Regular Rhythm; No Murmur, Rub or Gallop
Breast: Deferred by me
GI: Soft, Non Tender, Non Distended and Normal Bowel Sounds; No Organomegaly
Rectal: Deferred by Provider
Genito-urinary: Deferred by me
Musculoskeletal: No Clubbing, No Cyanosis and No Edema
Skin: Warm and Ulcers (Left upper extremity AV fistula with positive thrill, recent HD performed this morning successfully, presents with ulceration of skin over fistula); No Rash
Neuro: Awake, Alert, AO x 3 and Nonfocal/grossly intact
Psych: Calm and Intact Judgment/Insight
Laboratory Results
-
12/19/24 14:10
12/19/24 14:10
Laboratory Results
Total Bilirubin 1.3 mg/dl (0.2-1.3) 12/19/24 14:10
AST 31 U/L (17-59) 12/19/24 14:10
ALT 21 U/L (0-50) 12/19/24 14:10
Alkaline Phosphatase 116 U/L (38-126) 12/19/24 14:10
Data Reviewed
-
Ultrasound: Report Reviewed by me (SUZETTE AV graft: Left arm radiocephalic arteriovenous fistula is patent. Calculated flow volumes in the fistula range between 504 ml/min and 1164 ml/min. No focal velocity elevations are identified along the venous
outflow. Flow reversal is identified in the left radial artery distal to the arterioveno)
Lab Data: Labs Reviewed by me
Impression/Plan
-
IMPRESSION/PLAN:
#ESRD on HD
BUN 8, Creat 2.8
dialysis on
had complete HD session today
LUE AV graft US: Left arm radiocephalic arteriovenous fistula is patent. Calculated flow volumes in the fistula range between 504 ml/min and 1164 ml/min. No focal velocity elevations are identified along the venous outflow. Flow
reversal is identified in the left radial artery distal to the arteriovenous anastomosis. The fistula is diffusely aneurysmal.
- Admit to med/surg
- consult vascular
- consult nephrology
- continue Lovenox bridge from warfarin tonight, no AC after midnight
- NPO at midnight
- continue midodrine, and sevelamer
#HFrEF
ECHO (11/13/2023): Left ventricle is small in size. Low normal left ventricular systolic function.
Left ventricular ejection fraction is 50% by visual assessment. Mild concentric left ventricular hypertrophy. Flattened septum in systole and diastole consistent with RV pressure and volume overload.
Top normal right ventricular size. Mildly reduced right ventricular systolic function.
Well seated mechanical prosthetic mitral valve. Mean gradient 6 mmHg.
Mild to moderate tricuspid regurgitation. Estimated pulmonary artery pressure of 75-80 mmHg. Assuming a right atrial pressure of 15 mmHg.
- daily weights
- continue metoprolol
#DM II
- AccuCheck AC & HS
- SSI
#benign hypertension
- continue fludrocortisone, metoprolol
#hyperlipidemia
- continue atorvastatin
#atrial fibrillation
- hold warfarin
- continue Lovenox bridge
#hypothyroidism
- continue levothyroxine and liothyronine
#chronic hypoxic respiratory failure
- continue O2 @ 3liters
- continue PRN albuterol, Tessalon Perles, PRN budesonide
#GERD
- continue omeprazole
#obstructive sleep apnea
Code status: Full code
DVT prophylaxis: Lovenox Sq
--- NOTE | 2024-12-19 16:08 | W.PN.UPDATE ---
Addendum entered and electronically signed by Melissa Freeman MD 12/19/24 20:05:
Hold evening dose Lovenox.
Original Note:
Update Note
Progress Note Update
This is an addendum to the H&P written by Giana Abrams on 12/19/2024.� Patient seen and examined independently with [employer].
49-year-old male past medical history of ESRD on hemodialysis, Tuesday, Tuesday, Tuesday, anemia of chronic disease, left hip hematoma, chronic hypotension, permanent atrial fibrillation, mechanical mitral valve on Coumadin, COPD, chronic hypoxic
respiratory failure on 3 L baseline, hypothyroidism, presenting with clear discharge from the left fistula site and pain.� He notes continue prolonged bleeding hemodialysis today but no bleeding currently.� He was scheduled for revision of the
fistula tomorrow by Dr. Mayer.� Patient got dialysis today.
Left fistula site does not appear infected.
Patient is currently off Coumadin and on Lovenox bridge for planned revision tomorrow.� N.p.o. past midnight for fistula intervention tomorrow.� Last dose of Lovenox this evening then hold further Lovenox.
Vascular surgery following.� Nephrology consulted for routine dialysis on Tuesday.
[2024-12-19 18:41] VITALS: BP 94/56
--- NOTE | 2024-12-19 19:13 | PTCARENOTE ---
Pt. received from ED at 1830. Pt. was a stand and pivot to the bed. Pt. oriented to room, admission questions started and all questions answered. Will continue to monitor pt.
[2024-12-19] MEDS: RENVELA 800 MG PO (19:30)
[2024-12-19] MEDS: LAMICTAL 150 MG PO (19:30)
[2024-12-19] MEDS: ProAmatine 10 MG PO ×2 (19:33→23:30)
[2024-12-19] MEDS: ULTRAM 50 MG PO (19:33)
[2024-12-19] MEDS: WELLBUTRIN SR (12 hour sustained release) 150 MG PO (19:59)
[2024-12-19] MEDS: FLOVENT 110 MCG INHALER 2 PUFF INH (20:18)
[2024-12-19 23:07] VITALS: BP 94/58
[2024-12-19] MEDS: DESYREL 150 MG PO (23:27)
[2024-12-19] MEDS: NEURONTIN 300 MG PO (23:27)
[2024-12-19] MEDS: MELATONIN 3 MG PO (23:27)
[2024-12-19] MEDS: SENOKOT 8.6 MG PO (23:27)
[2024-12-19] MEDS: NEPHROCAP 1 CAPSULE PO (23:27)
[2024-12-19] MEDS: LIPITOR 20 MG PO (23:28)
[2024-12-19] MEDS: MORPHINE SULFATE 1 MG IV (23:30)
[2024-12-19] MEDS: TOPROL XL PO (23:32)
[2024-12-19 23:39] VITALS: BMI 31.9
[2024-12-20] VITALS (15 sets, daily range): BP systolic 2–112; BP diastolic 42–76; BMI 30.3
[2024-12-20] MEDS: ProAmatine PO (06:00)
[2024-12-20] MEDS: SYNTHROID PO (06:00)
[2024-12-20] MEDS: PERIDEX 0.12% ORAL RINSE 15 ML PO (06:47)
[2024-12-20] MEDS: NSS 500 IV (06:48)
[2024-12-20] MEDS: BACTROBAN NASAL 1 GRAM NASAL (06:49)
[2024-12-20 06:58] LABS: PT 20.5 Sec (11.4-14.6)
--- NOTE | 2024-12-20 07:12 | W.SUR.PREOP ---
Pre-Operative Surgical Note
-
I have examined this patient prior to the performance of the scheduled procedure.
The patient's condition is unchanged from the time of the current History and
Physical and the patient is able to undergo the scheduled procedure.
Discussed possible need for AV graft given worsened necrosis of skin - likely unable to ellipse out skin/SQ tissue and close over it primarily. He understands there's a possibility of requiring tunneled dialysis catheter while graft matures. He
understands all and wishes to proceed.
[2024-12-20 07:26] LABS: ALT (SGPT) 19 U/L (0-50); AST (SGOT) 24 U/L (17-59); Alkaline Phosphatase 95 U/L (38-126); Blood Urea Nitrogen 16 mg/dl (9-20); Calcium 9.2 mg/dl (8.4-10.2); Carbon Dioxide 30 mmol/L (22-30); Chloride 94 mmol/L (98-107); Estimated Creatinine Clearance 24 ml/min; Glucose 86 mg/dl (70-99); Potassium 3.7 mmol/L (3.5-5.1); Sodium 134 mmol/L (135-145); Total Bilirubin 1.3 mg/dl (0.2-1.3); Total Protein 7.1 g/dl (6.3-8.2); eGFR 14.99
--- NOTE | 2024-12-20 07:30 | PTCARENOTE ---
Critical Lab Creatinine 4.5, notified covering provider. However, patient requires Dialysis at baseline.
[2024-12-20] MEDS: RENVELA PO (08:00)
[2024-12-20] MEDS: FLOVENT 110 MCG INHALER INH (08:31)
--- NOTE | 2024-12-20 09:44 | W.SUR.POST ---
Surgical Immediate Post Op
Note
Pre Op Diagnosis: ESRD, ulcerated AVF
Post Op Diagnosis: same
Procedure Performed: Revision of left forearm AV fistula with interposition graft tunneled in clean plane with [place] AcuSeal early access graft
Primary Surgeon: Moreno
Assist: Shayne CONN
Anesthesia: general
Estimated Blood Loss: 40cc
Fluids: See anesthesia flow sheet
Drains/Shunts: none
Specimens/Cultures: None
Doppler/Duplex/Angio (Y/N): Y
Complications: none
Operative Findings: Palpable thrill
[2024-12-20 10:14] LABS: Glucose - Point of Care 163 mg/dl (70-99)
[2024-12-20 11:28] LABS: Hematocrit 23.8 % (39.0-52.0); Hemoglobin 7.4 g/dL (13.0-18.0); Mean Corp Hgb Conc. 31.1 g/dL (33.0-37.0); Mean Corpuscular Hgb 29.4 pg (27.0-31.0); Mean Corpuscular Volume 94.4 fL (80.0-94.0); Mean Platelet Volume 11.7 fL (7.4-10.4); Platelet Count 211 10^3/uL (130-400); Red Blood Cell Count 2.52 10^6/uL (4.70-6.10); Red Cell Dist. Width 18.9 % (11.5-14.5); White Blood Cell Count 9.6 10^3/uL (4.8-10.8)
[2024-12-20] MEDS: FLORINEF 0.1 MG PO (11:57)
[2024-12-20] MEDS: CYTOMEL 75 MICROGRAM PO (11:57)
[2024-12-20] MEDS: RENVELA 800 MG PO ×2 (11:57→16:42)
[2024-12-20] MEDS: ProAmatine 10 MG PO ×3 (11:57→23:15)
[2024-12-20] MEDS: LAMICTAL 150 MG PO ×2 (11:58→19:39)
[2024-12-20] MEDS: PROTONIX 40 MG PO (11:58)
[2024-12-20] MEDS: MORPHINE SULFATE 2 MG IV ×3 (12:00→20:42)
[2024-12-20] MEDS: TOPROL XL PO ×2 (12:00→20:41)
--- NOTE | 2024-12-20 12:00 | PTCARENOTE ---
Patient back to room s/p AV revision LUE. + Bruit and Thrill. L Radial Pulse by Doppler.
--- NOTE | 2024-12-20 12:04 | W.CON.NEPH ---
Consultation
-
Date/Time Consultation Requested: 12/20/24, 7:00 AM
Date/Time Consultation Performed: 12/20/24, 12:00 noon
Requesting Provider: Dr. Owens
Performing Provider: Dr. Zuñiga
Reason for Consultation: ESRD
Medical History
-
Chief Complaint: ESRD
History of Present Illness:
The patient is a 48-year-old male with a past medical history of end-stage renal disease who dialyzes at [facility] every Tuesday and Tuesday. He has chronic respiratory failure and is maintained on bronchodilator therapy and
chronic oxygen support. He has a history of chronic hypotension and is maintained on midodrine. The patient has a history of a mechanical mitral. valve replacement and is maintained on chronic anticoagulation therapy in addition he also takes
anticoagulation therapy for his chronic atrial fibrillation. He presented last evening with skin jason kdown of his AV fistula and prolonged bleeding following dialysis. Nephrology was consulted for his end-stage renal disease management.
Past Medical History
1. End-stage renal disease.
2. Atrial fibrillation.
3. Obstructive sleep apnea.
4. Chronic hypotension onmidodrine support
5. Cirrhosis.
6. Chronic respiratory failure on 3 L nasal cannula.
7. History of mitral valve endocarditis with subsequent mitral
valve repair.
8. History of hypothyroidism.
9. Cecal ulcer.
10.Anemia.
11.Obesity.
12.Depression.
13.Left upper extremity AV fistula.
14.AICD explant.
15 history of rectus abdominal sheath hematoma
Social History
Tobacco: Smoker
Alcohol: None
Living: [facility]
Family History
no CKD
Family History: Not Pertinent
Allergies / Home Medications
Allergy/AdvReac Type Severity Reaction Status Date / Time
dalteparin,porcine Allergy Unknown Verified 12/14/24 14:53
enoxaparin Allergy Unknown, Verified 12/14/24 14:53
[facility] record
isosorbide Allergy Unknown, Verified 12/14/24 14:53
[facility] record
meperidine Allergy Unknown, Verified 12/14/24 14:53
[facility] record
piperacillin sodium Allergy Itching; Verified 12/14/24 14:53
[From Zosyn] Tolerated
AMOXICILLIN
shellfish derived Allergy ALLERGY-FISH Verified 12/14/24 14:53
EXCEPT TUNA
tazobactam sodium Allergy Itching Verified 12/14/24 14:53
[From Zosyn]
�Medication �Instructions �Recorded �Confirmed �Type
gabapentin 300 mg capsule 300 mg PO HS Pain 03/11/15 12/19/24 History
polyethylene glycol 3350 17 gram 17 grams PO SUTUTHSA constipation 02/23/17 12/19/24 History
oral powder packet
atorvastatin 20 mg tablet 20 mg PO HS High cholesterol 10/04/18 12/19/24 History
sevelamer carbonate 800 mg tablet 800 mg PO MEALS Kidney Disease 10/04/18 12/19/24 History
levothyroxine 300 mcg tablet 300 mcg PO DAILY Thyroid 01/16/20 12/19/24 History
pantoprazole 40 mg tablet,delayed 40 mg PO DAILY Gastrointestinal 01/17/20 12/19/24 History
release issue
metoprolol succinate 25 mg 25 mg PO MOWEFR@2200 Blood Pressure 02/13/23 12/19/24 History
tablet,extended release 24 hr
metoprolol succinate 25 mg 25 mg PO SUTUTHSA@0800,2000 Blood 02/13/23 12/19/24 History
tablet,extended release 24 hr Pressure
acetaminophen 325 mg tablet 650 mg PO Q4HPRN PRN mild 10/14/23 12/19/24 History
pain/temp>100F
budesonide 0.25 mg/2 mL suspension 0.25 mg inhalation R [id number] PRN 10/14/23 12/19/24 History
for nebulization SOB/wheezing
midodrine 10 mg tablet 10 mg PO Q6 Hold SBP >/= 150 10/14/23 12/19/24 History
sennosides 8.6 mg tablet (senna) 8.6 mg PO HS Constipation 10/14/23 12/19/24 History
tramadol 50 mg tablet 50 mg PO Q6HPRN PRN moderate pain 10/14/23 12/19/24 History
albuterol sulfate 90 mcg/actuation 2 puff inhalation R Q4HPRN PRN 09/07/24 12/19/24 History
aerosol inhaler asthma
cetirizine 10 mg tablet 10 mg PO DAILY Allergies 09/07/24 12/19/24 History
fluticasone furoate 200 1 inh inhalation R DAILY 09/07/24 12/19/24 History
mcg/actuation blister powder for Lung/Breathing Issues
inhalation (Arnuity Ellipta)
lamotrigine 150 mg tablet 150 mg PO BID Neurological 09/07/24 12/19/24 History
(Lamictal) Condition
melatonin 3 mg tablet 3 mg PO HS Sleep 09/07/24 12/19/24 History
bupropion HCl 150 mg tablet,12 hr 150 mg PO MOWEFR depression/anxiety 09/10/24 12/19/24 History
sustained-release (Wellbutrin SR)
fludrocortisone 0.1 mg tablet 0.1 mg PO DAILY Blood pressure #30 09/14/24 12/19/24 Rx
tabs
benzonatate 100 mg capsule 100 mg PO Q8H PRN cough 12/14/24 12/19/24 History
bisacodyl 10 mg rectal suppository 10 mg MT DAILY PRN constipation 12/14/24 12/19/24 History
(Dulcolax (bisacodyl))
diphenhydramine HCl 25 mg tablet 25 mg PO Q6H PRN allergies 12/14/24 12/19/24 History
(Benadryl Allergy)
enoxaparin 150 mg/mL subcutaneous 150 mg SC DAILY@1800 Blood Clot 12/14/24 12/19/24 History
syringe (Lovenox) Prevention/Tx
liothyronine 50 mcg tablet 75 mcg PO DAILY Thyroid 12/14/24 12/19/24 History
(Cytomel)
trazodone 150 mg tablet 150 mg PO HS Sleep 12/14/24 12/19/24 History
vitamin B complex and vitamin C 1 cap PO HS Supplement 12/14/24 12/19/24 History
no.20-folic acid 1 mg capsule
Review of Systems
-
History Source: Patient
All other systems: Negative unless noted
Respiratory: Other (Chronic shortness of breath on oxygen)
: Other (anuric)
Musculoskeletal: Other (Left upper extremity AV fistula with bleeding in skin texture changes)
Physical Exam
Vital Signs
Vital Signs
Temp Pulse Resp BP Pulse Ox
97.2 F 106 17 100/59 97
12/20/24 11:20 12/20/24 11:57 12/20/24 11:20 12/20/24 11:57 12/20/24 11:20
Lab Results
12/20/24 11:15
12/20/24 06:22
WBC 9.6 10^3/uL (4.8-10.8) 12/20/24 11:15
RBC 2.52 10^6/uL (4.70-6.10) L 12/20/24 11:15
Hgb 7.4 g/dL (13.0-18.0) L 12/20/24 11:15
Hct 23.8 % (39.0-52.0) L 12/20/24 11:15
Plt Count 211 10^3/uL (130-400) 12/20/24 11:15
Sodium 134 mmol/L (135-145) L 12/20/24 06:22
Potassium 3.7 mmol/L (3.5-5.1) 12/20/24 06:22
Chloride 94 mmol/L (98-107) L 12/20/24 06:22
Carbon Dioxide 30 mmol/L (22-30) 12/20/24 06:22
BUN 16 mg/dl (9-20) 12/20/24 06:22
Creatinine 4.5 mg/dL (0.7-1.3) H* 12/20/24 06:22
eGFR 14.99 12/20/24 06:22
Glucose 86 mg/dl (70-99) 12/20/24 06:22
Calcium 9.2 mg/dl (8.4-10.2) 12/20/24 06:22
Albumin 4.0 g/dl (3.5-5.0) 12/20/24 06:22
Physical Exam
General: AOx3, Nontoxic , NAD
HEENT: PERRL, EOMI, Anicteric, Conjunctivae Clear, Ear/Nose Intact, Hearing Normal, Oropharynx Clear/Moist, Dentition Intact, Facial Symmetry, Neck Supple, Neck: Trachea Midline, No JVD and No Thyromegaly, no Bruits
Respiratory: coarse to auscultation bilaterally with normal lung excursion
Cardiac: S1/S2 and irregular irregular
Breast: Deferred by me
Abdomen: Soft, Nontender, Nondistended, Normal Bowel Sounds and No Hepatosplenomegaly
Rectal: Deferred by Provider
Genito-urinary: No Costovertebral Tenderness
Extremities: No Clubbing, No Cyanosis and trace edema, severe left buttock pain with palpitation
Skin: No Rash or open lesions
Neuro: Nonfocal/Grossly Intact, CN II-XII (Intact) and Strength (Musculoskeletal exam 5 out of 5 both upper and lower extremities)
Hematologic/Lymphatic: No Cervical Lymphadenopathy, No Submandibular Lymphadenopathy and No Supraclavicular Lymphadenopathy
Psych: Mood/afflect pleasant, Insight/judgement good and Appropriate
Vascular: plus 1pedal and radial pulses
Vascular Access: AVF (Left radial AV fistula with thrill and bruit bandaged with wrap)
Data Reviewed
-
Radiology: Report Reviewed by me ( 1/28/25 ultrasound of radiocephalic hemodialysis graft.:Grossly aneurysmal)
Labs: Labs Reviewed by me (, BMP, CBC)
Old Records: Reviewed ( reviewed previous consultation from September 2024 for end-stage renal disease in the setting of AVF access dysfunction)
Assessment/Plan
-
Impression:
End-stage renal disease.
AV fistula bleed
Status post fall from bed with subsequent left buttock hematoma
Anemia.
Chronic hypotension on midodrine support
Hyperphosphatemia.
History of mechanical aortic valve on chronic anticoagulation
History of chronic lung disease.
History of AFib.
Plan:
HD tomorrow, orders provided,No use radiocephalic AV fistula
Would provide transfusion on dialysis if hemoglobin drops further currently at 7.4
Vascular report following fistulogram reviewed, notable for balloon angioplasty of venous outflow stenosis but inconclusive findings on AV fistula gram to explain bleeding per vascular surgery
midodrine continues for bp support on HD
Maintain sevelamer binder therapy for hyperphosphatemia
Propria fluid restriction and dietary restrictions directed for ESRD
TIO on HD
--- NOTE | 2024-12-20 12:27 | CM ---
Patient seen at bedside.
OBS status - explained OBS form - verbalizes understanding. In chart
IA completed
Returned to room-revision of L forearm AV fistula
Resides at [facility] since 03/30, 15 day bed hold per Myra
Referral entered in [facility] to return to [facility]
PLOF: wheelchair
DME: wheelchair
PCP: William Bellamy
Pharmacy: [facility]
PLAN: Return to [facility] when medically stable
[facility]
Report #: [phone]
Fax #: [phone]
--- NOTE | 2024-12-20 13:23 | OR.RPT ---
Operative Report
Operative Report
PROCEDURE DATE: 12/20/2024
Preoperative diagnosis:
1. End-stage renal disease on hemodialysis.
2. Necrotic skin overlying left forearm AV fistula outflow vein.
Postoperative diagnosis: Same
Procedure: Revision of left upper extremity AV access with interposition left forearm AV graft tunneled in clean planes with [place] AcuSeal 7mm early access graft.
Surgeon: Moreno
Tick Inspector: CARLITO Bella, required for all aspects of procedure including assistance with traction/countertraction, following of suture line, assistance with closure.
Complications: None
Anesthesia: General
Indications for procedure:
End-stage renal disease on hemodialysis. History of longstanding left forearm AV fistula. Developed area of ulceration and then scabbing overlying. Some thin-skin as well. Therefore electively planned revision of this in an expeditious fashion.
However the site worsened and I was alerted by his nephrology team. Therefore patient was brought to the emergency room and brought more expeditiously to the operating room. Risk/benefit/alternatives all fully discussed with the patient. I did
discuss likely need for interposition grafting. He understood all wished to proceed.
Description of procedure:
Patient was identified brought to the operating room placed on the table in supine position. After the adequate administration of anesthesia he was prepped and draped in the standard surgical fashion. A standard preoperative timeout was undertaken
and everybody was in agreement the plan. A longitudinal incision was made in the distal forearm overlying the palpable thrill in the immediate outflow vein. It was aneurysmal here. As soon as I encountered the subcutaneous tissue there was oozing
from the subcutaneous tissue and small vein branches. These were controlled with the electrocautery. I then identified in the slightly deeper subcutaneous tissue the cephalic outflow vein. It was enlarged/aneurysmal. We carefully dissected away
from surrounding structures and circumferentially dissected. I was able to pass a vessel loop around it. Now I turned my attention to the proximal forearm beyond the areas of ulceration and thin skin, and made an incision overlying. I could
palpate the vein here and it also felt slightly aneurysmal but much lesser so than the more distal site. Of note I did image these areas with an ultrasound once the patient was in the operating room as well to confirm that these were reasonable
areas to expose the outflow vein. I now carried this incision through the skin and subcutaneous tissue. Identified in the subcutaneous tissue of the outflow vein. It was mildly enlarged/aneurysmal. I carefully circumferentially dissected here
and passed a vessel loop around it. Now that I had proximal and distal exposure of the outflow vein of the fistula, I created a subcutaneous tunnel that was tunneled more so on the radial side of the arm away from the necrotic skin/thin-skinned
areas. Of note the thin skin/necrotic skin areas had been covered with an occlusive adhesive (Ioban). The tunnel was created with a [employer] tunneler. I then passed through the tunnel a [place] AcuSeal 7 mm x 4 mm early access graft. However I cut
out the 4 mm end so that the graft was a continuous 7 mm graft. Once I did this I gave the patient 5000 units of intravenous heparin. Now I ligated the more central outflow portion of the vein in the distal wrist incision and then transected the
vein just proximal to there (just proximal in terms of venous outflow). Of course, prior to doing this I had clamped the immediate outflow vein. I now beveled the graft and sewed an end-to-end anastomosis with a running 5-0 Prolene suture. I
completed and tied down the suture line. I then released flow in the outflow vein into the graft after clamping the distal graft. A couple of 5-0 Prolene [id number] type sutures were placed along the suture line. Hemostasis was achieved. I
then pulled out the redundancy of the graft on the more proximal forearm site. I now similarly ligated the proximal portion of the outflow vein (more peripheral) in the proximal forearm incision. And then transected the vein beyond this ligation.
As such I excluded the middle segment of the venous outflow over which the ulceration was existing. Now I sewed an end-to-end anastomosis between the graft and the outflow vein (reasonably sized matched) with a running 5-0 Prolene suture. I
completed and tied on the suture line and then released clamps. There was now excellent flow in the graft and the outflow vein, confirmed with Doppler. At this point I was satisfied. We irrigated the incision sites and meticulously achieved
hemostasis (took some time). Hemostasis was confirmed. We then closed the incision sites in layers using 3-0 Vicryl interrupted deep dermal layer followed by skin clips. Occlusive sterile dressings were applied. I elected at this point not to
debride the necrotic area of skin in the middle as there was no concern anymore for any major issue as there was no longer a pulsatile fistula outflow vein deep to this site, and I did not wish to risk any infection if there was some extending into
the new incisions where the grafts were. All sponge, needle, instrument counts were correct at the end of the case. The patient tolerated the procedure well, and was transported to the recovery room in fair condition.
[2024-12-20] MEDS: ULTRAM 50 MG PO (13:32)
[2024-12-20 14:14] LABS: Iron 98 ug/dl (49-181)
[2024-12-20 14:27] LABS: Percent Saturation 37 % (20-50); Total Iron Binding Capacity 263 ug/dl (261-462)
--- NOTE | 2024-12-20 14:59 | W.PN.HOSP.TC ---
Today's Communication/Plan
-
1 unit of blood with dialysis tomorrow-consent obtained
Start heparin drip tonight at 1000 units an hour
Assessment / Plan
Assessment / Plan
49-year-old male presented to the hospital because of AV fistula ulceration. Patient had dialysis where there was difficulty stopping bleeding. Patient was seen by vascular and the plan is for revision.
Left upper extremity-left arm radiocephalic AV fistula patent. Reversal in the left radial artery distal to the AV anastomosis
Patient was seen after the procedure
Awake alert
Cardiovascular system S1-S2 appreciated
Left arm bandaged
Abdomen soft and nontender
Chest clear to auscultation
# AV fistula bleeding
Admitted for a revision
Revision of left upper extremity AV access with interposition left forearm AV graft tunneled in clean planes with [place] AcuSeal 7mm early access graft. ()
Discussed with Vascular - will start heparin drip at 1000 units an hour tonight aiming for low PTT
# End-stage renal disease on hemodialysis Tuesday
Completed session on 12/19/2024
Left upper extremity access
Continue sevelamer
Nephrology consulted for dialysis needs
# Chronic HFrEF
Echo 11/13/2023-small LV size, normal LV systolic function. EF 50%. Mild concentric LVH. Flattened septum and systolic and diastole consistent with RV pressure and volume overload. Well-seated prosthetic mitral valve. Mild to moderate TR.
Pulmonary artery pressure 75 to 80 mmHg
# Paroxysmal atrial fibrillation-hold Coumadin for procedure. Restart heparin drip later tonight. Continue metoprolol
# History of mitral valve endocarditis with mitral valve replacement 1997. INR 1.7 today. Heparin drip to be started at 1000 units/h with a low PTT range discussed with vascular
# Mpuwqzuz-Kvbs-Wunxc and sliding scale coverage
# Hyperlipidemia-continue statin
# Hypothyroidism-continue levothyroxine 375 g daily
# Chronic hypotension on Florinef, midodrine
# COPD with chronic hypoxic respiratory failure on 3 L of oxygen. Continue Arnuity Ellipta or equivalent, budesonide, albuterol as needed
# GERD-PPI
# Chronic anemia-likely secondary to ESRD. Informed blood consent obtained. Will transfuse 1 unit of blood with dialysis tomorrow. Discussed with nephrology and pt's sister.
# History of AICD implant and explant
# Sleep apnea
# Depression-continue trazodone, Wellbutrin, Lamictal
# History of CVA/TIA
# Neuropathy-likely secondary to diabetes-on gabapentin
# Smoker-cessation counseling
# Obesity with a BMI of 30
# Nonambulatory status-uses wheelchair
# DVT prophylaxis-heparin drip to be started later, SCDs
# Full code
D/W nursing
Discussed with vascular
Discussed with nephrology
Discussed with the patient and sister and updated
Total time spent over 50 minutes.
Anticipated Discharge: 24 - 48 hours
Subjective/Interval History
-
Date of Service: December 20, 2024
Objective Data
-
Labs:
Laboratory Results
12/20/24 12/20/24 12/20/24
06:22 11:15 14:48
WBC 9.6 Pending
Hgb 7.4 L Pending
Hct 23.8 L Pending
Plt Count 211 Pending
PT 20.5 H
INR 1.70
APTT Pending
Sodium 134 L
Potassium 3.7
Chloride 94 L
Carbon Dioxide 30
BUN 16
Creatinine 4.5 H*
Glucose 86
Calcium 9.2
Total Bilirubin 1.3
AST 24
ALT 19
Alkaline Phosphatase 95
Vital Signs:
Vital Signs
Temp Pulse Resp BP Pulse Ox
98.2 F 106 16 100/59 99
12/20/24 12:41 12/20/24 12:41 12/20/24 12:41 12/20/24 12:41 12/20/24 12:41
I&O
12/19/24 12/20/24 12/21/24
06:59 06:59 06:59
Intake Total 50 / 50
Balance 50 / 50
[2024-12-20 15:50] LABS: Vitamin B12 711 pg/ml (239-931)
[2024-12-20 17:25] LABS: APTT 44.3 Sec (23.4-35.0)
--- NOTE | 2024-12-20 17:40 | PTCARENOTE ---
Patient's MALU wrap gone, patient let RN know that Dr. Mayer had removed. At proximal edge of kerlix dressing, tegaderm with sanguineous drainage contained within dressing. Notified vascular Nurse Practitioner Arianne. As long as drainage contained
within dressing, leave be. However, if it soils through change dressing and notify vascular non destructive testing technician.
[2024-12-20 17:57] LABS: Hematocrit 22.5 % (39.0-52.0); Hemoglobin 6.9 g/dL (13.0-18.0); Mean Corp Hgb Conc. 30.7 g/dL (33.0-37.0); Mean Corpuscular Volume 94.5 fL (80.0-94.0); Mean Platelet Volume 9.8 fL (7.4-10.4); Platelet Count 188 10^3/uL (130-400); Red Blood Cell Count 2.38 10^6/uL (4.70-6.10); Red Cell Dist. Width 18.5 % (11.5-14.5)
--- NOTE | 2024-12-20 18:05 | PTCARENOTE ---
Critical Lab 6.9. Notified cross coverage. Patient asymptomatic with soft BP's at baseline. Plan earlier in evening had been to transfuse with Dialysis tomorrow. Will continue with current plan.
[2024-12-20] MEDS: FLOVENT 110 MCG INHALER 2 PUFF INH (19:26)
[2024-12-20] MEDS: HEPARIN 25000 UNITS/250 ML IV (19:59)
[2024-12-20] MEDS: NEURONTIN 300 MG PO (23:15)
[2024-12-20] MEDS: NEPHROCAP 1 CAPSULE PO (23:15)
[2024-12-20] MEDS: LIPITOR 20 MG PO (23:15)
[2024-12-20] MEDS: SENOKOT 8.6 MG PO (23:15)
[2024-12-20] MEDS: MELATONIN 3 MG PO (23:16)
[2024-12-20] MEDS: DESYREL 150 MG PO (23:16)
[2024-12-21] VITALS (7 sets, daily range): BP systolic 94–145; BP diastolic 47–74; BMI 31.0
[2024-12-21] MEDS: MORPHINE SULFATE 2 MG IV ×5 (01:05→21:20)
[2024-12-21 02:26] LABS: APTT 126.4 Sec (23.4-35.0)
[2024-12-21] MEDS: ProAmatine 10 MG PO ×3 (05:26→17:02)
[2024-12-21] MEDS: SYNTHROID 300 MCG PO (05:26)
--- NOTE | 2024-12-21 07:09 | W.PN.UPDATE ---
Update Note
Progress Note Update
LATE ENTRY:
called by RN last evening to discuss labs--HGB 6.9--Hemodynamically stable--plans were for transfusion today on HD--no active bleeding--small oozing from fistula site--will not transfuse until AM on HD, consider 2 units
--- NOTE | 2024-12-21 07:24 | W.PN.VS ---
Today's Communication / Plan
-
See plan below for today 12/21/2024
Assessment/Plan
-
End-stage renal disease on hemodialysis, status post revision ulcerated/necrotic skin overlying fistula with interposition rerouted early access AV graft. Unfortunately he appears to have a hematoma at the site secondary to his anticoagulation. He
is higher risk for repeated washouts etc. (even with anesthesia yesterday he had hypotension through the operative procedure), but he may require washout. Consider transfusion packed red blood cells even if he is not getting HD today. Plan
communicated with hospitalist and hob machine operator. Keep n.p.o. for now. May require washout. Will reassess. Have placed gentle Felice bandage and holding heparin for now.
-
Total Time Spent with Patient (in minutes): 15
Subjective Data
-
Date of Service: December 21, 2024
Seen and evaluated. Patient complains of pain at the surgical site/incisions. Otherwise no significant complaints.
Objective Data
-
Vital Signs
Temp Pulse Resp BP Pulse Ox
98.8 F 98 20 94/52 100
12/21/24 04:45 12/21/24 04:45 12/21/24 04:45 12/21/24 05:26 12/20/24 23:18
Intake and Output
12/20/24 12/21/24 12/22/24
06:59 06:59 06:59
Intake Total 2004
Balance 2004
Intake:
Oral fluids 1620 / 1620
IV fluids (Total) 135 / 135
NSS 50 / 50
Blood Product Amount Infused ( 250 / 250
mL)
Packed Rbc Leukoreduced Unit 250 / 250
[id number]
Calcium 9.2 mg/dl (8.4-10.2) 12/20/24 06:22
Total Bilirubin 1.3 mg/dl (0.2-1.3) 12/20/24 06:22
AST 24 U/L (17-59) 12/20/24 06:22
ALT 19 U/L (0-50) 12/20/24 06:22
Alkaline Phosphatase 95 U/L (38-126) 12/20/24 06:22
Total Protein 7.1 g/dl (6.3-8.2) 12/20/24 06:22
Albumin 4.0 g/dl (3.5-5.0) 12/20/24 06:22
Physical Exam
-
He is awake and alert. No acute distress when he sitting there. Dressing removed left forearm. He does have some tenderness in the forearm. More proximal forearm incision with small to moderate hematoma under the skin palpable. Incision is
clean dry and intact. Distal incision site dressing is clean dry and intact. Palpable thrill/graft function. No hematoma along the tunnel site.
PTT was supratherapeutic.
[2024-12-21] MEDS: RENVELA PO ×2 (07:34→12:07)
[2024-12-21] MEDS: DILAUDID 0.25 MG IV (07:39)
[2024-12-21] MEDS: PROTONIX 40 MG PO (07:40)
[2024-12-21] MEDS: LAMICTAL 150 MG PO ×2 (07:41→20:58)
[2024-12-21] MEDS: FLORINEF 0.1 MG PO (07:42)
[2024-12-21] MEDS: CYTOMEL 75 MICROGRAM PO (07:42)
[2024-12-21] MEDS: FLOVENT 110 MCG INHALER 2 PUFF INH ×2 (07:52→18:05)
[2024-12-21] MEDS: WELLBUTRIN SR (12 hour sustained release) 150 MG PO (08:09)
--- NOTE | 2024-12-21 10:17 | W.PN.UPDATE ---
Update Note
Progress Note Update
The dressing left forearm was removed. Small hematoma is softer. Not tense. No need for washout at this point. No drainage between the lea. Good bruit through the graft. He is tender along the track of the graft however. Mild edema along
the track of the graft as well. Therefore, I think accessing the graft may be challenging at this point. Would recommend catheter placement for at least a few days if not longer. Consideration for tunneled dialysis catheter. Discussed via [place]
text with nephrology.
--- NOTE | 2024-12-21 10:21 | W.PN.NEPH.PH ---
Today's Communication / Plan
-
tunneld hd cath then hd today. vasc to follow outpt so should be ok for DC after hd or tommorw if done to late
Assessment/Plan
-
Impression:
End-stage renal disease.
AV fistula bleed
Status post fall from bed with subsequent left buttock hematoma
Anemia.
Chronic hypotension on midodrine support
Hyperphosphatemia.
History of mechanical aortic valve on chronic anticoagulation
History of chronic lung disease.
History of AFib.
Plan:
Transfuse with packed red blood cells for hemoglobin of 6.9
Vascular report following fistulogram reviewed, notable for balloon angioplasty of venous outflow stenosis but inconclusive findings on AV fistula gram to explain bleeding per vascular surgery
midodrine continues for bp support on HD
Maintain sevelamer binder therapy for hyperphosphatemia
fluid restriction and dietary restrictions directed for ESRD
TIO on HD
Discussed with vascular surgery and unfortunately unable to use the left arm fistula for at least a few days.
Asked interventional radiology to place a tunneled dialysis catheter today
-
-
Date of Service: December 21, 2024
CC / HPI / ROS
-
Chief Complaint:
avf bleed
History of Present Illness:
esrd mwf with avf bleed . need rest and Pc placement
Review of Systems:
no sob other then chronic
Labs
-
Labs:
BUN 16 mg/dl (9-20) 12/20/24 06:22
Creatinine 4.5 mg/dL (0.7-1.3) H* 12/20/24 06:22
eGFR 14.99 12/20/24 06:22
Glucose 86 mg/dl (70-99) 12/20/24 06:22
Calcium 9.2 mg/dl (8.4-10.2) 12/20/24 06:22
Albumin 4.0 g/dl (3.5-5.0) 12/20/24 06:22
Physical Exam
-
Vital Signs:
Vital Signs
Temp Pulse Resp BP Pulse Ox
97.7 F 96 18 111/63 99
12/21/24 07:05 12/21/24 07:54 12/21/24 07:54 12/21/24 07:05 12/21/24 09:49
Respiratory:: Bilateral: CTA
Lung Excursion:: Normal
Abdomen:: Soft
Bowel Sounds:: Normal
Extremity Edema:: None: Bilateral:
[2024-12-21 12:17] LABS: Hematocrit 25.5 % (39.0-52.0); Mean Corp Hgb Conc. 31.4 g/dL (33.0-37.0); Mean Corpuscular Hgb 28.9 pg (27.0-31.0); Mean Corpuscular Volume 92.1 fL (80.0-94.0); Mean Platelet Volume 9.2 fL (7.4-10.4); Platelet Count 188 10^3/uL (130-400); Red Blood Cell Count 2.77 10^6/uL (4.70-6.10); Red Cell Dist. Width 17.8 % (11.5-14.5)
--- NOTE | 2024-12-21 12:19 | PN.CDI ---
CDI
- -
CDI:
Physician Documentation Request
Admit Date: 12/20/24 20:01
Dear Doctor Graciela,
Please review the following and provide your response in the progress notes.
Clinical Indicators:
Pt admitted with AV fistula bleeding /Revision of AV fistula
There is potentially conflicting documentation in the record regarding the type of afib.
Documented pr update note 12/19, ' permanent atrial fibrillation....'
Progress note 12/20, ' Paroxysmal atrial fibrillation-hold Coumadin for procedure. Restart heparin drip later tonight. Continue metoprolol...'
Documented in H&P pervious visit 09/10/24, ' Permanent atrial fibrillation--Continue rate control with metoprolol...'
Due to conflicting documentation please provide further specificity regarding atrial fibrillation :
Permanent atrial fibrillation - when a decision has been made to accept the presence of AF and there is no further attempt to restore or maintain sinus rhythm
Paroxysmal atrial fibrillation - terminates spontaneously or with intervention within 7 days of onset
Other - please specify
Use of terms such as suspected, likely, concern for, or probable (associated with a specific diagnosis that is being evaluated, monitored, or treated as if it exists) are acceptable and can be coded in the inpatient setting, when documented at the
time of discharge.
Thank you,
Margaret Romero RN
CDI Specialist
[place] [facility]
Please use your independent medical judgment in providing your response.
[2024-12-21 12:37] LABS: Carbon Dioxide 23 mmol/L (22-30); Chloride 97 mmol/L (98-107); Sodium 133 mmol/L (135-145)
[2024-12-21] MEDS: ANCEF 10 IV (13:45)
--- NOTE | 2024-12-21 13:50 | W.PN.HOSP.TC ---
Addendum entered and electronically signed by Paco Owens MD 12/21/24 14:30:
Heparin was restarted 930 this morning. Now on hold for IR procedure.
Restart heparin when okay with IR
Original Note:
Today's Communication/Plan
-
Restart heparin when okay with vascular
Tunneled catheter placement today for dialysis
Watch hemoglobin
Assessment / Plan
Assessment / Plan
49-year-old male presented to the hospital because of AV fistula ulceration. Patient had dialysis where there was difficulty stopping bleeding. Patient was seen by vascular and the plan is for revision.
Left upper extremity-left arm radiocephalic AV fistula patent. Reversal in the left radial artery distal to the AV anastomosis
Awake alert
Cardiovascular system S1-S2 appreciated
Left arm bandaged
Abdomen soft and nontender
Chest clear to auscultation
# AV fistula bleeding
Admitted for a revision
Revision of left upper extremity AV access with interposition left forearm AV graft tunneled in clean planes with [place] AcuSeal 7mm early access graft. ()
Reviewed by vascular good bruit in the graft -swelling has not gotten worse therefore not planning for OR today.
Heparin was held briefly. Restart when okay with vascular
# End-stage renal disease on hemodialysis Tuesday
Completed session on 12/19/2024
Tunneled catheter for hemodialysis today
Left upper extremity access
Continue sevelamer
Nephrology consulted for dialysis needs
# Chronic HFrEF
Echo 11/13/2023-small LV size, normal LV systolic function. EF 50%. Mild concentric LVH. Flattened septum and systolic and diastole consistent with RV pressure and volume overload. Well-seated prosthetic mitral valve. Mild to moderate TR.
Pulmonary artery pressure 75 to 80 mmHg
# Paroxysmal atrial fibrillation-hold Coumadin for procedure. Restart heparin when OK with Vascular. Continue metoprolol.
# History of mitral valve endocarditis with mitral valve replacement 1997. INR 1.7 today. Heparin drip to be started at 1000 units/h with a low PTT range discussed with vascular
# Avqvjpsu-Abfs-Qvkyx and sliding scale coverage
# Hyperlipidemia-continue statin
# Hypothyroidism-continue levothyroxine 375 g daily
# Chronic hypotension on Florinef, midodrine
# COPD with chronic hypoxic respiratory failure on 3 L of oxygen. Continue Arnuity Ellipta or equivalent, budesonide, albuterol as needed
# GERD-PPI
# Chronic anemia-likely secondary to ESRD. Informed blood consent obtained. Transfused 1 unit of blood 12/20/2024
# History of AICD implant and explant
# Sleep apnea
# Depression-continue trazodone, Wellbutrin, Lamictal
# History of CVA/TIA
# Neuropathy-likely secondary to diabetes-on gabapentin
# Smoker-cessation counseling
# Obesity with a BMI of 30
# Nonambulatory status-uses wheelchair
# DVT prophylaxis-heparin drip to be started later, SCDs
# Full code
D/W nursing
Discussed with vascular
Discussed with nephrology
Anticipated Discharge: 24 - 48 hours
Subjective/Interval History
-
Date of Service: December 21, 2024
Objective Data
-
Labs:
Laboratory Results
12/21/24 12/21/24 12/21/24
02:07 08:45 12:00
WBC 7.0
Hgb 8.0 L
Hct 25.5 L
Plt Count 188
APTT 126.4 H Pending
Sodium 133 L
Potassium 4.0
Chloride 97 L
Carbon Dioxide 23
12/21/24
15:30
WBC
Hgb
Hct
Plt Count
APTT Pending
Sodium
Potassium
Chloride
Carbon Dioxide
Vital Signs:
Vital Signs
Temp Pulse Resp BP Pulse Ox
97.9 F 97 18 111/74 100
12/21/24 13:09 12/21/24 13:09 12/21/24 13:09 12/21/24 13:09 12/21/24 13:09
I&O
12/20/24 12/21/24 12/22/24
06:59 06:59 06:59
Intake Total 2004
Balance 2004
[2024-12-21 16:26] LABS: APTT 60.8 Sec (23.4-35.0)
[2024-12-21] MEDS: FERRLECIT 125 MG IV (16:43)
[2024-12-21] MEDS: RETACRIT 10000 UNITS IV (16:44)
[2024-12-21] MEDS: RENVELA 800 MG PO (17:03)
[2024-12-21] MEDS: ZYRTEC 5 MG PO (17:05)
[2024-12-21] MEDS: DESYREL 150 MG PO (21:00)
[2024-12-21] MEDS: NEPHROCAP 1 CAPSULE PO (21:00)
[2024-12-21] MEDS: NEURONTIN 300 MG PO (21:01)
[2024-12-21] MEDS: SENOKOT 8.6 MG PO (21:01)
[2024-12-21] MEDS: LIPITOR 20 MG PO (21:01)
[2024-12-21] MEDS: TOPROL XL 25 MG PO (21:05)
[2024-12-21] MEDS: MELATONIN 3 MG PO (21:19)
[2024-12-21 23:44] LABS: APTT 88.7 Sec (23.4-35.0)
[2024-12-22] MEDS: ProAmatine 10 MG PO ×4 (00:11→18:33)
--- NOTE | 2024-12-22 00:26 | RESPNOTE ---
Patient does not have own CPAP in room. He states he only ever wears oxygen, 3 LPM 30/05
[2024-12-22] MEDS: SYNTHROID 300 MCG PO (05:48)
[2024-12-22 05:58] VITALS: BMI 30.9
[2024-12-22] MEDS: MORPHINE SULFATE 2 MG IV ×2 (05:58→11:05)
[2024-12-22] MEDS: HEPARIN 25000 UNITS/250 ML IV (05:59)
[2024-12-22 07:29] VITALS: BP 93/56
--- NOTE | 2024-12-22 07:53 | W.PN.VS ---
Today's Communication / Plan
-
as above
Assessment/Plan
-
End-stage renal disease on hemodialysis, status post revision ulcerated/necrotic skin overlying fistula with interposition rerouted early access AV graft.
Rec continued gentle wrapping and pain control
Follow up in the office with Dr Mayer
Subjective Data
-
Date of Service: December 22, 2024
No acute events. Complaining of pain in L arm and at [facility] site
Objective Data
-
Vital Signs
Temp Pulse Resp BP Pulse Ox
97.9 F 100 14 93/56 100
12/22/24 07:29 12/22/24 07:29 12/22/24 07:29 12/22/24 07:29 12/22/24 07:29
Intake and Output
12/21/24 12/22/24 12/23/24
06:59 06:59 06:59
Intake Total 2004 1050 / 1050
Balance 2004 1050 / 1050
Intake:
Oral fluids 1620 / 1620 900 / 900
IV fluids (Total) 135 / 135 150 / 150
NSS 50 / 50 150 / 150
Blood Product Amount Infused ( 250 / 250
mL)
Packed Rbc Leukoreduced Unit 250 / 250
[id number]
Lab Results
12/21/24 12:00
Calcium 9.2 mg/dl (8.4-10.2) 12/20/24 06:22
Total Bilirubin 1.3 mg/dl (0.2-1.3) 12/20/24 06:22
AST 24 U/L (17-59) 12/20/24 06:22
ALT 19 U/L (0-50) 12/20/24 06:22
Alkaline Phosphatase 95 U/L (38-126) 12/20/24 06:22
Total Protein 7.1 g/dl (6.3-8.2) 12/20/24 06:22
Albumin 4.0 g/dl (3.5-5.0) 12/20/24 06:22
Physical Exam
-
L arm +thrill
soft hematoma
incisions c/d/i
[2024-12-22] MEDS: FLOVENT 110 MCG INHALER 2 PUFF INH ×2 (08:04→18:22)
[2024-12-22] MEDS: CYTOMEL 75 MICROGRAM PO (08:44)
[2024-12-22] MEDS: LAMICTAL 150 MG PO ×2 (08:44→20:11)
[2024-12-22] MEDS: FLORINEF 0.1 MG PO (08:44)
[2024-12-22] MEDS: RENVELA 800 MG PO ×3 (08:44→18:23)
[2024-12-22] MEDS: PROTONIX 40 MG PO (08:44)
[2024-12-22] MEDS: TOPROL XL 25 MG PO (08:48)
[2024-12-22 11:12] LABS: APTT 47.3 Sec (23.4-35.0)
[2024-12-22 11:29] LABS: Hematocrit 26.6 % (39.0-52.0); Hemoglobin 8.2 g/dL (13.0-18.0); Mean Corp Hgb Conc. 30.8 g/dL (33.0-37.0); Mean Corpuscular Hgb 29.2 pg (27.0-31.0); Mean Corpuscular Volume 94.7 fL (80.0-94.0); Mean Platelet Volume 9.6 fL (7.4-10.4); Platelet Count 178 10^3/uL (130-400); Red Blood Cell Count 2.81 10^6/uL (4.70-6.10); Red Cell Dist. Width 18.5 % (11.5-14.5); White Blood Cell Count 5.9 10^3/uL (4.8-10.8)
--- NOTE | 2024-12-22 12:19 | W.PN.NEPH.PH ---
Today's Communication / Plan
-
Dialysis Tuesday/okay for discharge from renal standpoint
Assessment/Plan
-
Impression:
End-stage renal disease.
AV fistula bleed
Status post fall from bed with subsequent left buttock hematoma
Anemia.
Chronic hypotension on midodrine support
Hyperphosphatemia.
History of mechanical aortic valve on chronic anticoagulation
History of chronic lung disease.
History of AFib.
Plan:
Transfuse with packed red blood cells for hemoglobin of 6.9
Vascular report following fistulogram reviewed, notable for balloon angioplasty of venous outflow stenosis but inconclusive findings on AV fistula gram to explain bleeding per vascular surgery
midodrine continues for bp support on HD
Maintain sevelamer binder therapy for hyperphosphatemia
fluid restriction and dietary restrictions directed for ESRD
TIO on HD
Discussed with vascular surgery and unfortunately unable to use the left arm fistula for at least a few days.
Status post permacath unable to use left arm fistula/graft.
Okay to discharge from renal standpoint and I believe from a vascular standpoint will be okay to follow-up outpatient but would confirm with them.
Next dialysis treatment Tuesday
-
-
Date of Service: December 22, 2024
CC / HPI / ROS
-
Chief Complaint:
avf bleed
History of Present Illness:
esrd mwf with avf bleed . need rest and Pc placement
Review of Systems:
no sob other then chronic
Labs
-
Labs:
WBC 5.9 10^3/uL (4.8-10.8) 12/22/24 10:51
RBC 2.81 10^6/uL (4.70-6.10) L 12/22/24 10:51
Hgb 8.2 g/dL (13.0-18.0) L 12/22/24 10:51
Hct 26.6 % (39.0-52.0) L 12/22/24 10:51
Plt Count 178 10^3/uL (130-400) 12/22/24 10:51
Sodium 133 mmol/L (135-145) L 12/21/24 12:00
Potassium 4.0 mmol/L (3.5-5.1) 12/21/24 12:00
Chloride 97 mmol/L (98-107) L 12/21/24 12:00
Carbon Dioxide 23 mmol/L (22-30) 12/21/24 12:00
BUN 16 mg/dl (9-20) 12/20/24 06:22
Creatinine 4.5 mg/dL (0.7-1.3) H* 12/20/24 06:22
eGFR 14.99 12/20/24 06:22
Glucose 86 mg/dl (70-99) 12/20/24 06:22
Calcium 9.2 mg/dl (8.4-10.2) 12/20/24 06:22
Albumin 4.0 g/dl (3.5-5.0) 12/20/24 06:22
Physical Exam
-
Vital Signs:
Vital Signs
Temp Pulse Resp BP Pulse Ox
97.9 F 93 16 83/54 99
12/22/24 07:29 12/22/24 11:42 12/22/24 08:10 12/22/24 11:42 12/22/24 08:10
Respiratory:: Bilateral: CTA
Lung Excursion:: Normal
Abdomen:: Soft
Bowel Sounds:: Normal
Extremity Edema:: None: Bilateral:
--- NOTE | 2024-12-22 13:23 | W.PN.HOSP.TC ---
Today's Communication/Plan
-
Coumadin started
INR in the morning
Watch hemoglobin
Once INR is therapeutic patient can be discharged.
Assessment / Plan
Assessment / Plan
49-year-old male presented to the hospital because of AV fistula ulceration. Patient had dialysis where there was difficulty stopping bleeding. Patient was seen by vascular and the plan is for revision.
Left upper extremity-left arm radiocephalic AV fistula patent. Reversal in the left radial artery distal to the AV anastomosis
Awake alert
Cardiovascular system S1-S2 appreciated
Left arm bandaged
Abdomen soft and nontender
Chest clear to auscultation
# AV fistula bleeding
Admitted for a revision
Revision of left upper extremity AV access with interposition left forearm AV graft tunneled in clean planes with [place] AcuSeal 7mm early access graft. ()
Reviewed by vascular good bruit in the graft
Heparin was held briefly. Restarted
Vascular not planning for any further procedures
Start Coumadin
# End-stage renal disease on hemodialysis Tuesday
Completed session on 12/19/2024
Tunneled catheter for hemodialysis today
Left upper extremity access
Continue sevelamer
Nephrology consulted for dialysis needs
# Chronic HFrEF
Echo 11/13/2023-small LV size, normal LV systolic function. EF 50%. Mild concentric LVH. Flattened septum and systolic and diastole consistent with RV pressure and volume overload. Well-seated prosthetic mitral valve. Mild to moderate TR.
Pulmonary artery pressure 75 to 80 mmHg
# Paroxysmal atrial fibrillation-restart Coumadin. Continue metoprolol.
# History of mitral valve endocarditis with mitral valve replacement 1997. Heparin drip -bridge to Coumadin
# Amemnzln-Yqpq-Wszon and sliding scale coverage
# Hyperlipidemia-continue statin
# Hypothyroidism-continue levothyroxine 375 g daily
# Chronic hypotension on Florinef, midodrine
# COPD with chronic hypoxic respiratory failure on 3 L of oxygen. Continue Arnuity Ellipta or equivalent, budesonide, albuterol as needed
# GERD-PPI
# Chronic anemia-likely secondary to ESRD. Informed blood consent obtained. Transfused 1 unit of blood 12/20/2024
# History of AICD implant and explant
# Sleep apnea
# Depression-continue trazodone, Wellbutrin, Lamictal
# History of CVA/TIA
# Neuropathy-likely secondary to diabetes-on gabapentin
# Smoker-cessation counseling
# Obesity with a BMI of 30
# Nonambulatory status-uses wheelchair
# DVT prophylaxis-heparin drip to be started later, SCDs
# Full code
D/W nursing
Discussed with vascular
Discussed with nephrology
Anticipated Discharge: 24 - 48 hours
Subjective/Interval History
-
Date of Service: December 22, 2024
Objective Data
-
Labs:
Laboratory Results
12/22/24 12/22/24
10:51 18:30
WBC 5.9
Hgb 8.2 L
Hct 26.6 L
Plt Count 178
APTT 47.3 H Pending
Vital Signs:
Vital Signs
Temp Pulse Resp BP Pulse Ox
97.9 F 93 16 83/54 99
12/22/24 07:29 12/22/24 11:42 12/22/24 08:10 12/22/24 11:42 12/22/24 08:10
I&O
12/21/24 12/22/24 12/23/24
06:59 06:59 06:59
Intake Total 2004 1050 / 1050
Balance 2004 1050 / 1050
[2024-12-22 15:00] VITALS: BP 90/51
--- NOTE | 2024-12-22 17:04 | PTCARENOTE ---
Pt morning labs (CBC and PTT) were unable to be obtained by phlebotomy x3 due to Pt being a hard stick. Staff able to collect CBC and PTT around 11am. PTT 47.3 MD notified of result as per order (Pt is not going off of protocol). New order to
increase rate from 8ml/hr to 9ml/hr. Next PTT 1830. Pt to restart Coumadin 5mg this evening.
[2024-12-22] MEDS: COUMADIN 5 MG PO (18:33)
[2024-12-22 20:29] LABS: APTT 52.5 Sec (23.4-35.0)
[2024-12-22] MEDS: TOPROL XL PO (20:36)
[2024-12-22] MEDS: NEURONTIN 300 MG PO (20:57)
[2024-12-22] MEDS: MELATONIN 3 MG PO (20:57)
[2024-12-22] MEDS: LIPITOR 20 MG PO (20:57)
[2024-12-22] MEDS: SENOKOT 8.6 MG PO (20:58)
[2024-12-22] MEDS: DESYREL 150 MG PO (20:59)
[2024-12-22] MEDS: NEPHROCAP 1 CAPSULE PO (20:59)
[2024-12-22 23:00] VITALS: BP 91/55
[2024-12-23] MEDS: ProAmatine 10 MG PO ×4 (00:13→17:32)
[2024-12-23] MEDS: ULTRAM 50 MG PO ×2 (00:25→22:02)
[2024-12-23 03:08] LABS: APTT 71.7 Sec (23.4-35.0)
--- NOTE | 2024-12-23 05:06 | PTCARENOTE ---
Patient's automatic blood pressure was 79/52. This RN obtained a manual blood pressure of 78/58. Patient was asymptomatic. CARLITO Fragoso notified. DIRECTOR CASE MANAGEMENT told this RN to just continue monitoring. Will continue to monitor.
--- NOTE | 2024-12-23 05:12 | PTCARENOTE ---
Patient's PTT at 20:11 was 52.5. DRYING TUNNEL OPERATOR Yoana Fragoso notified. She advised this RN to keep heparin drip at 9 ml/hr. Will continue to monitor.
[2024-12-23] MEDS: SYNTHROID 300 MCG PO (05:42)
[2024-12-23 06:00] VITALS: BMI 31.0
[2024-12-23 07:16] VITALS: BP 94/53
[2024-12-23] MEDS: FLOVENT 110 MCG INHALER 2 PUFF INH ×2 (08:31→19:33)
[2024-12-23 09:20] LABS: INR 1.37; PT 17.1 Sec (11.4-14.6)
[2024-12-23] MEDS: LAMICTAL 150 MG PO ×2 (09:21→21:53)
[2024-12-23] MEDS: CYTOMEL 75 MICROGRAM PO (09:22)
[2024-12-23] MEDS: RENVELA 800 MG PO ×3 (09:22→17:32)
[2024-12-23] MEDS: FLORINEF 0.1 MG PO (09:22)
[2024-12-23] MEDS: PROTONIX 40 MG PO (09:24)
[2024-12-23 09:29] LABS: Hematocrit 26.3 % (39.0-52.0); Hemoglobin 8.2 g/dL (13.0-18.0); Mean Corp Hgb Conc. 31.2 g/dL (33.0-37.0); Mean Corpuscular Hgb 29.5 pg (27.0-31.0); Mean Corpuscular Volume 94.6 fL (80.0-94.0); Mean Platelet Volume 9.5 fL (7.4-10.4); Platelet Count 165 10^3/uL (130-400); Red Blood Cell Count 2.78 10^6/uL (4.70-6.10); White Blood Cell Count 7.5 10^3/uL (4.8-10.8)
[2024-12-23] MEDS: TOPROL XL 25 MG PO (09:30)
[2024-12-23] MEDS: HEPARIN 25000 UNITS/250 ML IV (10:17)
--- NOTE | 2024-12-23 11:36 | W.PN.HOSP.TC ---
Today's Communication/Plan
-
Coumadin 7.5 mg tonight
INR in the morning
Mondays dialysis day for the patient
If INR is therapeutic we will discharge tomorrow if not will need to stay another night.
Get records from assisted what his last Coumadin doses were. Patient does not know.
Admission records say that he was on Lovenox.
Assessment / Plan
Assessment / Plan
49-year-old male presented to the hospital because of AV fistula ulceration. Patient had dialysis where there was difficulty stopping bleeding. Patient was seen by vascular and the plan is for revision.
Left upper extremity-left arm radiocephalic AV fistula patent. Reversal in the left radial artery distal to the AV anastomosis
Awake alert
Cardiovascular system S1-S2 appreciated
Left arm bandaged
Abdomen soft and nontender
Chest clear to auscultation
# AV fistula bleeding
Admitted for a revision
Revision of left upper extremity AV access with interposition left forearm AV graft tunneled in clean planes with [place] AcuSeal 7mm early access graft. ()
Reviewed by vascular good bruit in the graft
Heparin was held briefly. Restarted
Vascular not planning for any further procedures
Started Coumadin
# End-stage renal disease on hemodialysis Tuesday
Completed session on 12/19/2024
Tunneled catheter for hemodialysis today
Left upper extremity access
Continue sevelamer
Nephrology consulted for dialysis needs
# Chronic HFrEF
Echo 11/13/2023-small LV size, normal LV systolic function. EF 50%. Mild concentric LVH. Flattened septum and systolic and diastole consistent with RV pressure and volume overload. Well-seated prosthetic mitral valve. Mild to moderate TR.
Pulmonary artery pressure 75 to 80 mmHg
# Paroxysmal atrial fibrillation-restarted Coumadin. Continue metoprolol.
# History of mitral valve endocarditis with mitral valve replacement 1997. Heparin drip -bridge to Coumadin
# Bpnxyhgl-Ziin-Kigwa and sliding scale coverage
# Hyperlipidemia-continue statin
# Hypothyroidism-continue levothyroxine 375 g daily
# Chronic hypotension on Florinef, midodrine
# COPD with chronic hypoxic respiratory failure on 3 L of oxygen. Continue Arnuity Ellipta or equivalent, budesonide, albuterol as needed
# GERD-PPI
# Chronic anemia-likely secondary to ESRD. Informed blood consent obtained. Transfused 1 unit of blood 12/20/2024
# History of AICD implant and explant
# Sleep apnea
# Depression-continue Trazodone, Wellbutrin, Lamictal
# History of CVA/TIA
# Neuropathy-likely secondary to diabetes-on gabapentin
# Smoker-cessation counseling
# Obesity with a BMI of 30
# Nonambulatory status-uses wheelchair
# DVT prophylaxis-Heparin
# Full code
D/W nursing
Sister updated on the phone.
Anticipated Discharge: Within 24 hours
Subjective/Interval History
-
Date of Service: December 23, 2024
Objective Data
-
Labs:
Laboratory Results
12/23/24 12/23/24 12/23/24
02:41 08:49 15:00
WBC 7.5
Hgb 8.2 L
Hct 26.3 L
Plt Count 165
PT 17.1 H
INR 1.37
APTT 71.7 H 70.0 H Pending
Vital Signs:
Vital Signs
Temp Pulse Resp BP Pulse Ox
97.8 F 99 16 94/53 100
12/23/24 07:16 12/23/24 08:35 12/23/24 08:35 12/23/24 07:16 12/23/24 08:35
I&O
12/22/24 12/23/24 12/24/24
06:59 06:59 06:59
Intake Total 1050 / 1050 1570 / 1570
Balance 1050 / 1050 1569 / 157
--- NOTE | 2024-12-23 12:57 | W.PN.UPDATE ---
Update Note
Progress Note Update
per [facility] he got coumadin 12 mg 12/14/24 and 12/15/24
Will order 12 mg here
--- NOTE | 2024-12-23 12:59 | W.PN.NEPH.PH ---
Today's Communication / Plan
-
No acute need for dialysis today ordered for tomorrow
Assessment/Plan
-
Impression:
End-stage renal disease.
AV fistula bleed
Status post fall from bed with subsequent left buttock hematoma
Anemia.
Chronic hypotension on midodrine support
Hyperphosphatemia.
History of mechanical aortic valve on chronic anticoagulation
History of chronic lung disease.
History of AFib.
Plan:
Transfuse with packed red blood cells for hemoglobin of 6.9
Vascular report following fistulogram reviewed, notable for balloon angioplasty of venous outflow stenosis but inconclusive findings on AV fistula gram to explain bleeding per vascular surgery
midodrine continues for bp support on HD
Maintain sevelamer binder therapy for hyperphosphatemia
fluid restriction and dietary restrictions directed for ESRD
TIO on HD
Discussed with vascular surgery and unfortunately unable to use the left arm fistula for at least a few days.
Status post permacath unable to use left arm fistula/graft.
Next dialysis treatment Tuesday
-
-
Date of Service: December 23, 2024
CC / HPI / ROS
-
Chief Complaint:
avf bleed
History of Present Illness:
esrd mwf with avf bleed . need rest and Pc placement
Review of Systems:
no sob other then chronic
Labs
-
Labs:
WBC 7.5 10^3/uL (4.8-10.8) 12/23/24 08:49
RBC 2.78 10^6/uL (4.70-6.10) L 12/23/24 08:49
Hgb 8.2 g/dL (13.0-18.0) L 12/23/24 08:49
Hct 26.3 % (39.0-52.0) L 12/23/24 08:49
Plt Count 165 10^3/uL (130-400) 12/23/24 08:49
Sodium 133 mmol/L (135-145) L 12/21/24 12:00
Potassium 4.0 mmol/L (3.5-5.1) 12/21/24 12:00
Chloride 97 mmol/L (98-107) L 12/21/24 12:00
Carbon Dioxide 23 mmol/L (22-30) 12/21/24 12:00
BUN 16 mg/dl (9-20) 12/20/24 06:22
Creatinine 4.5 mg/dL (0.7-1.3) H* 12/20/24 06:22
eGFR 14.99 12/20/24 06:22
Glucose 86 mg/dl (70-99) 12/20/24 06:22
Calcium 9.2 mg/dl (8.4-10.2) 12/20/24 06:22
Albumin 4.0 g/dl (3.5-5.0) 12/20/24 06:22
Physical Exam
-
Vital Signs:
Vital Signs
Temp Pulse Resp BP Pulse Ox
97.8 F 107 16 94/53 100
12/23/24 07:16 12/23/24 12:27 12/23/24 08:35 12/23/24 12:27 12/23/24 08:35
Respiratory:: Bilateral: CTA
Lung Excursion:: Normal
Abdomen:: Soft
Bowel Sounds:: Normal
Extremity Edema:: None: Bilateral:
[2024-12-23 15:21] VITALS: BP 88/48
[2024-12-23] MEDS: COUMADIN 12 MG PO (17:32)
[2024-12-23 18:06] LABS: APTT 58.7 Sec (23.4-35.0)
[2024-12-23] MEDS: TOPROL XL PO (21:59)
[2024-12-23 23:00] VITALS: BP 95/49
[2024-12-23] MEDS: LIPITOR 20 MG PO (23:03)
[2024-12-23] MEDS: DESYREL 150 MG PO (23:03)
[2024-12-23] MEDS: NEURONTIN 300 MG PO (23:04)
[2024-12-23] MEDS: NEPHROCAP 1 CAPSULE PO (23:04)
[2024-12-23] MEDS: MELATONIN 3 MG PO (23:04)
[2024-12-23] MEDS: SENOKOT 8.6 MG PO (23:04)
[2024-12-24] MEDS: ProAmatine 10 MG PO ×4 (00:47→17:31)
[2024-12-24 01:26] LABS: APTT 73.5 Sec (23.4-35.0)
[2024-12-24] MEDS: SYNTHROID 300 MCG PO (05:52)
[2024-12-24 06:00] VITALS: BMI 31.4
[2024-12-24 07:14] VITALS: BP 91/54
[2024-12-24] MEDS: RENVELA PO (08:02)
[2024-12-24] MEDS: CYTOMEL 75 MICROGRAM PO (08:03)
[2024-12-24] MEDS: PROTONIX 40 MG PO (08:04)
[2024-12-24] MEDS: FLORINEF 0.1 MG PO (08:04)
[2024-12-24] MEDS: LAMICTAL 150 MG PO ×2 (08:04→20:24)
[2024-12-24] MEDS: WELLBUTRIN SR (12 hour sustained release) 150 MG PO (08:08)
[2024-12-24] MEDS: FLOVENT 110 MCG INHALER 2 PUFF INH ×2 (08:11→19:45)
[2024-12-24 08:44] LABS: Hematocrit 23.9 % (39.0-52.0); Hemoglobin 7.6 g/dL (13.0-18.0); Mean Corp Hgb Conc. 31.8 g/dL (33.0-37.0); Mean Corpuscular Hgb 29.6 pg (27.0-31.0); Platelet Count 151 10^3/uL (130-400); Red Blood Cell Count 2.57 10^6/uL (4.70-6.10); Red Cell Dist. Width 17.6 % (11.5-14.5); White Blood Cell Count 8.7 10^3/uL (4.8-10.8)
[2024-12-24 08:51] LABS: INR 1.45; PT 17.9 Sec (11.4-14.6)
[2024-12-24 08:53] LABS: APTT 71.5 Sec (23.4-35.0)
[2024-12-24] MEDS: RETACRIT 10000 UNITS IV (09:04)
[2024-12-24 09:18] LABS: Blood Urea Nitrogen 47 mg/dl (9-20); Calcium 9.3 mg/dl (8.4-10.2); Carbon Dioxide 24 mmol/L (22-30); Chloride 94 mmol/L (98-107); Estimated Creatinine Clearance 13 ml/min; Glucose 141 mg/dl (70-99); Potassium 3.9 mmol/L (3.5-5.1); Sodium 133 mmol/L (135-145); eGFR 6.89
[2024-12-24] MEDS: TYLENOL 1000 MG PO (10:23)
--- NOTE | 2024-12-24 10:23 | W.PN.HOSP.TC ---
Today's Communication/Plan
-
Coumadin 15 mg
Discharge when INR is above 2.5
Assessment / Plan
Assessment / Plan
49-year-old male presented to the hospital because of AV fistula ulceration. Patient had dialysis where there was difficulty stopping bleeding. Patient was seen by vascular and the plan is for revision.
Left upper extremity-left arm radiocephalic AV fistula patent. Reversal in the left radial artery distal to the AV anastomosis
Awake , drowsy
Cardiovascular system S1-S2 appreciated
Left arm bandaged
Abdomen soft and nontender
Chest clear to auscultation
# AV fistula bleeding
Admitted for a revision
Revision of left upper extremity AV access with interposition left forearm AV graft tunneled in clean planes with [place] AcuSeal 7mm early access graft. ()
Reviewed by vascular good bruit in the graft
Heparin was held briefly. Restarted
Vascular not planning for any further procedures
Started Coumadin
# End-stage renal disease on hemodialysis Tuesday
Tunneled catheter placed for HD
Continue sevelamer
# Chronic HFrEF
Echo 11/13/2023-small LV size, normal LV systolic function. EF 50%. Mild concentric LVH. Flattened septum and systolic and diastole consistent with RV pressure and volume overload. Well-seated prosthetic mitral valve. Mild to moderate TR.
Pulmonary artery pressure 75 to 80 mmHg
# Paroxysmal atrial fibrillation-restarted Coumadin. Continue metoprolol.
# History of mitral valve endocarditis with mitral valve replacement 1997. Heparin drip -bridge to Coumadin
# Rzeohdpj-Zisg-Xpsry and sliding scale coverage
# Hyperlipidemia-continue statin
# Hypothyroidism-continue levothyroxine 375 g daily
# Chronic hypotension on Florinef, midodrine
# COPD with chronic hypoxic respiratory failure on 3 L of oxygen. Continue Arnuity Ellipta or equivalent, budesonide, albuterol as needed
# GERD-PPI
# Chronic anemia-likely secondary to ESRD. Informed blood consent obtained. Transfused 1 unit of blood 12/20/2024
# History of AICD implant and explant
# Sleep apnea
# Depression-continue Trazodone, Wellbutrin, Lamictal
# History of CVA/TIA
# Neuropathy-likely secondary to diabetes-on gabapentin
# Smoker-cessation counseling
# Obesity with a BMI of 30
# Nonambulatory status-uses wheelchair
# DVT prophylaxis-Heparin
# Full code
D/W nursing
Sister updated on the phone 12/23/26
D/W Renal
D/W HD nurse
Anticipated Discharge: Within 24 hours
Subjective/Interval History
-
Date of Service: December 24, 2024
Objective Data
-
Labs:
Laboratory Results
12/24/24 12/24/24 12/24/24
01:04 08:23 08:48
WBC 8.7
Hgb 7.6 L
Hct 23.9 L
Plt Count 151
PT 17.9 H
INR 1.45
APTT 73.5 H 71.5 H
Sodium 133 L
Potassium 3.9
Chloride 94 L
Carbon Dioxide 24
BUN 47 H
Creatinine 8.6 H*
Glucose 141 H
Calcium 9.3
12/24/24 12/24/24
10:11 15:00
WBC Pending
Hgb Pending
Hct Pending
Plt Count Pending
PT
INR
APTT Pending Pending
Sodium
Potassium
Chloride
Carbon Dioxide
BUN
Creatinine
Glucose
Calcium
Vital Signs:
Vital Signs
Temp Pulse Resp BP Pulse Ox
98.7 F 106 14 91/54 98
12/24/24 07:14 12/24/24 08:18 12/24/24 08:18 12/24/24 07:14 12/24/24 08:18
I&O
12/23/24 12/24/24 12/25/24
06:59 06:59 06:59
Intake Total 1570 / 1570 1200 / 1200
Balance 1570 / 1570 1200 / 1200
--- NOTE | 2024-12-24 10:50 | W.PN.NEPH.HD ---
Assessment
-
pt seen during HD
vitals stable
high dose TIO, ok for transfusion
await INR to reach goal over 2.5 with M valve
on heparin gtt now
CVC functions fine
AVF/AVG resting
Progress Note - Hemodialysis
-
Date of Service: December 24, 2024
Duration: 45 minutes and 3 hours
Potassium Bath: 2
Calcium Bath: 2.5
Opti-Dialyzer: 160
Ultrafiltration: Other (1.5-2.5)
Blood Flow: 400
Dialysate Flow: 600
Heparin: no
EPO: [id number]
[2024-12-24 11:37] VITALS: BP 95/48
--- NOTE | 2024-12-24 11:49 | CM ---
CM reviewed pt with Dr Patel
Anticipate dc tomorrow pending INR
Plan for HD bedside today per nephro note
Update provided to [facility] via [facility]
Discharge Disposition- return to [facility] for continued LTC
[2024-12-24 11:53] VITALS: BP 96/47
[2024-12-24] MEDS: RENVELA 800 MG PO ×2 (12:02→16:17)
--- NOTE | 2024-12-24 12:17 | PN.CDI ---
Addendum entered and electronically signed by Paco Owens MD 12/24/24 14:50:
clinically not relavant
Original Note:
CDI
- -
CDI:
Physician Documentation Request
Admit Date: 12/20/24 20:01
Dear Doctor Graciela,
Please review the following and provide your response in the progress notes.
Clinical Indicators:
Pt admitted with AV fistula bleeding /Revision of AV fistula
Sodium levels are as below/ Pt on HD
12/20/24 12/21/24 12/24/24
06:22 12:00 08:48
Sodium 134 L 133 L 133 L
Based on the above, could you clarify in the progress notes, the appropriate diagnosis, if significant, that supports the above abnormalities and additional evaluation, monitoring and/or treatment rendered:
Hyponatremia
Abnormal lab value only
Other ( please specify)
Use of terms such as suspected, likely, concern for, or probable (associated with a specific diagnosis that is being evaluated, monitored, or treated as if it exists) are acceptable and can be coded in the inpatient setting, when documented at the
time of discharge.
Thank you,
Margaret Romero RN
CDI Specialist
[employer] [employer]
Please use your independent medical judgment in providing your response.
[2024-12-24 13:34] VITALS: BP 103/54
[2024-12-24] MEDS: HEPARIN 25000 UNITS/250 ML IV (13:49)
[2024-12-24] MEDS: ULTRAM 50 MG PO (13:50)
[2024-12-24 15:34] VITALS: BP 93/49
[2024-12-24 15:43] LABS: APTT 50.1 Sec (23.4-35.0)
[2024-12-24] MEDS: COUMADIN 15 MG PO (17:32)
[2024-12-24] MEDS: ZYRTEC 5 MG PO (17:33)
[2024-12-24] MEDS: DESYREL 150 MG PO (21:58)
[2024-12-24] MEDS: SENOKOT 8.6 MG PO (21:58)
[2024-12-24] MEDS: LIPITOR 20 MG PO (21:58)
[2024-12-24] MEDS: NEURONTIN 300 MG PO (21:58)
[2024-12-24] MEDS: MELATONIN 3 MG PO (21:58)
[2024-12-24] MEDS: NEPHROCAP 1 CAPSULE PO (21:58)
[2024-12-24] MEDS: TOPROL XL PO (22:23)
[2024-12-24 23:00] VITALS: BP 99/47
[2024-12-24 23:44] LABS: APTT > 200 Sec (23.4-35.0)
[2024-12-25 00:50] LABS: APTT 76.3 Sec (23.4-35.0)
[2024-12-25] MEDS: ProAmatine 10 MG PO ×5 (01:01→23:59)
[2024-12-25 06:00] VITALS: BMI 31.4
[2024-12-25] MEDS: ULTRAM 50 MG PO (06:29)
[2024-12-25] MEDS: SYNTHROID 300 MCG PO (06:29)
[2024-12-25 07:23] VITALS: BP 101/65
[2024-12-25 07:37] LABS: INR 1.75; PT 20.7 Sec (11.4-14.6)
[2024-12-25] MEDS: LAMICTAL 150 MG PO ×2 (07:58→19:47)
[2024-12-25] MEDS: RENVELA 800 MG PO ×3 (07:58→16:28)
[2024-12-25] MEDS: PROTONIX 40 MG PO (07:58)
[2024-12-25] MEDS: CYTOMEL 75 MICROGRAM PO (07:58)
[2024-12-25] MEDS: TOPROL XL 25 MG PO ×2 (07:58→21:05)
[2024-12-25] MEDS: FLORINEF 0.1 MG PO (07:58)
[2024-12-25] MEDS: FLOVENT 110 MCG INHALER 2 PUFF INH ×2 (08:02→20:20)
[2024-12-25 11:10] VITALS: BP 90/57; BP 99/53
--- NOTE | 2024-12-25 11:24 | W.PN.NEPH.PH ---
Today's Communication / Plan
-
HD tomorrow
Assessment/Plan
-
Impression:
End-stage renal disease.
AV fistula bleed
Status post fall from bed with subsequent left buttock hematoma
Anemia.
Chronic hypotension on midodrine support
Hyperphosphatemia.
History of mechanical aortic valve on chronic anticoagulation
History of chronic lung disease.
History of AFib.
Plan:
HD tomorrow
midodrine continues for bp support on HD
Maintain sevelamer binder therapy for hyperphosphatemia
fluid restriction and dietary restrictions directed for ESRD
TIO on HD
Discussed with vascular surgery and unfortunately unable to use the left arm fistula for at least a few days.
Status post permacath as unable to use left arm fistula/graft.
-
-
Date of Service: December 25, 2024
CC / HPI / ROS
-
Chief Complaint:
avf bleed
History of Present Illness:
Tolerated dialysis yesterday
INR subtherapeutic on Coumadin
BP stable with midodrine [id number]
Review of Systems:
No chest pain or shortness of breath
Labs
-
Labs:
Sodium 133 mmol/L (135-145) L 12/24/24 08:48
Potassium 3.9 mmol/L (3.5-5.1) 12/24/24 08:48
Chloride 94 mmol/L (98-107) L 12/24/24 08:48
Carbon Dioxide 24 mmol/L (22-30) 12/24/24 08:48
BUN 47 mg/dl (9-20) H 12/24/24 08:48
Creatinine 8.6 mg/dL (0.7-1.3) H* 12/24/24 08:48
eGFR 6.89 12/24/24 08:48
Glucose 141 mg/dl (70-99) H 12/24/24 08:48
Calcium 9.3 mg/dl (8.4-10.2) 12/24/24 08:48
Albumin 4.0 g/dl (3.5-5.0) 12/20/24 06:22
Physical Exam
-
Vital Signs:
Vital Signs
Temp Pulse Resp BP Pulse Ox
98.0 F 99 18 101/65 98
12/25/24 07:23 12/25/24 08:04 12/25/24 08:04 12/25/24 07:23 12/25/24 08:04
Cardiovascular:: Regular rate and rhythm
Respiratory:: Bilateral: Coarse
Lung Excursion:: Normal
Abdomen:: Nontender and Soft
Bowel Sounds:: Normal
Extremity Edema:: None: Bilateral:
Other Findings::
AV fistula with thrill
[2024-12-25 13:35] LABS: Hematocrit 28.7 % (39.0-52.0); Mean Corp Hgb Conc. 31.4 g/dL (33.0-37.0); Mean Corpuscular Hgb 29.5 pg (27.0-31.0); Mean Corpuscular Volume 94.1 fL (80.0-94.0); Mean Platelet Volume 9.8 fL (7.4-10.4); Platelet Count 149 10^3/uL (130-400); Red Blood Cell Count 3.05 10^6/uL (4.70-6.10); Red Cell Dist. Width 17.6 % (11.5-14.5); White Blood Cell Count 7.2 10^3/uL (4.8-10.8)
[2024-12-25 13:47] LABS: APTT 142.1 Sec (23.4-35.0)
--- NOTE | 2024-12-25 14:32 | W.PN.HOSP.TC ---
Today's Communication/Plan
-
Discharge when INR is therapeutic
Assessment / Plan
Assessment / Plan
49-year-old male presented to the hospital because of AV fistula ulceration. Patient had dialysis where there was difficulty stopping bleeding. Patient was seen by vascular and the plan is for revision.
Left upper extremity-left arm radiocephalic AV fistula patent. Reversal in the left radial artery distal to the AV anastomosis
Awake , drowsy
Cardiovascular system S1-S2 appreciated
Left arm bandaged
Abdomen soft and nontender
Chest clear to auscultation
# AV fistula bleeding
Admitted for a revision
Revision of left upper extremity AV access with interposition left forearm AV graft tunneled in clean planes with [place] AcuSeal 7mm early access graft. ()
Reviewed by vascular good bruit in the graft
Heparin was held briefly. Restarted
Vascular not planning for any further procedures
Patient was complaining of more pain in the left arm therefore requested vascular to evaluate. Vascular evaluated no acute issues noted.
Started Coumadin
# End-stage renal disease on hemodialysis Tuesday
Tunneled catheter placed for HD
Continue sevelamer
# Chronic HFrEF
Echo 11/13/2023-small LV size, normal LV systolic function. EF 50%. Mild concentric LVH. Flattened septum and systolic and diastole consistent with RV pressure and volume overload. Well-seated prosthetic mitral valve. Mild to moderate TR.
Pulmonary artery pressure 75 to 80 mmHg
# Paroxysmal atrial fibrillation-restarted Coumadin. Continue metoprolol.
# History of mitral valve endocarditis with mitral valve replacement 1997. Heparin drip -bridge to Coumadin
# Aiebinht-Labl-Fgaps and sliding scale coverage
# Hyperlipidemia-continue statin
# Hypothyroidism-continue levothyroxine 375 g daily
# Chronic hypotension on Florinef, midodrine
# COPD with chronic hypoxic respiratory failure on 3 L of oxygen. Continue Arnuity Ellipta or equivalent, budesonide, albuterol as needed
# GERD-PPI
# Chronic anemia-likely secondary to ESRD. Acute blood loss anemia also entertained secondary to the fistula informed blood consent obtained. Transfused 1 unit of blood 12/20/2024 and another unit on 12/24/2024
# History of AICD implant and explant
# Sleep apnea
# Depression-continue Trazodone, Wellbutrin, Lamictal
# History of CVA/TIA
# Neuropathy-likely secondary to diabetes-on gabapentin
# Smoker-cessation counseling
# Obesity with a BMI of 30
# Nonambulatory status-uses wheelchair
# DVT prophylaxis-Heparin
# Full code
D/W nursing
Sister updated on the phone 12/23/26, left message again on 12/25/2024
D/W Renal
Anticipated Discharge: Within 24 hours
Subjective/Interval History
-
Date of Service: December 25, 2024
Objective Data
-
Labs:
Laboratory Results
12/25/24 12/25/24
07:09 13:06
WBC 7.2
Hgb 9.0 L
Hct 28.7 L
Plt Count 149
PT 20.7 H
INR 1.75
APTT 122.0 H 142.1 H
Vital Signs:
Vital Signs
Temp Pulse Resp BP Pulse Ox
98.0 F 99 18 101/65 98
12/25/24 07:23 12/25/24 08:04 12/25/24 08:04 12/25/24 07:23 12/25/24 08:04
I&O
12/24/24 12/25/24 12/26/24
06:59 06:59 06:59
Intake Total 1200 / 1200 730 / 730
Balance 1200 / 1200 730 / 730
--- NOTE | 2024-12-25 14:48 | CM ---
CM reviewed chart
Awaiting therapeutic INR
Plan for HD bedside tomorrow
Update provided to [facility] via [facility]
Discharge Disposition- return to [facility] for continued LTC
[2024-12-25 15:45] VITALS: BP 104/65
[2024-12-25] MEDS: COUMADIN 15 MG PO (17:14)
[2024-12-25] MEDS: HEPARIN 25000 UNITS/250 ML IV (17:19)
[2024-12-25] MEDS: ROXICODONE 5 MG PO (21:05)
[2024-12-25 21:24] LABS: APTT 52.9 Sec (23.4-35.0)
[2024-12-25] MEDS: SENOKOT 8.6 MG PO (21:59)
[2024-12-25] MEDS: NEURONTIN 300 MG PO (21:59)
[2024-12-25] MEDS: LIPITOR 20 MG PO (21:59)
[2024-12-25] MEDS: MELATONIN 3 MG PO (21:59)
[2024-12-25] MEDS: NEPHROCAP 1 CAPSULE PO (21:59)
[2024-12-25] MEDS: DESYREL 150 MG PO (21:59)
[2024-12-25 22:26] LABS: APTT 69.3 Sec (23.4-35.0)
[2024-12-25 23:00] VITALS: BP 95/48
--- NOTE | 2024-12-26 02:39 | DOWNTIME ---
There was a [employer] Downtime on 12/26/2024 from 0100 to 12/26/2023 at 0235 . Downtime documentation of patient's care, including medication administrations, has been reconciled in the electronic record per guidelines. Refer to the
patient's paper chart under the miscellaneous tab to see printed paper medication records and downtime forms.
[2024-12-26 05:59] LABS: % Basophils 0.6 % (0-2); % Immature Granulocytes 0.7 % (0-0.5); % Lymphocytes 8.1 % (20.5-51.1); % Monocytes 8.7 % (1.7-9.3); % Neutrophils 79.9 % (42.2-75.2); Absolute Eosinophils 0.1 10^3/uL (0-0.7); Absolute Immature Granulocytes 0.1 10^3/uL (0-0.05); Absolute Lymphocytes 0.6 10^3/uL (1.2-3.4); Absolute Monocytes 0.6 10^3/uL (0.1-0.6); Absolute Neutrophils 5.5 10^3/uL (1.4-6.5); Hematocrit 27.2 % (39.0-52.0); Hemoglobin 8.6 g/dL (13.0-18.0); Mean Corp Hgb Conc. 31.6 g/dL (33.0-37.0); Mean Corpuscular Hgb 29.5 pg (27.0-31.0); Mean Corpuscular Volume 93.2 fL (80.0-94.0); Mean Platelet Volume 10.3 fL (7.4-10.4); Nucleated Red Blood Cells % 0.4 % (-); Platelet Count 153 10^3/uL (130-400); Red Blood Cell Count 2.92 10^6/uL (4.70-6.10); Red Cell Dist. Width 17.2 % (11.5-14.5); White Blood Cell Count 6.9 10^3/uL (4.8-10.8)
[2024-12-26 06:00] VITALS: BMI 31.4
[2024-12-26 06:17] LABS: APTT 88.3 Sec (23.4-35.0)
[2024-12-26] MEDS: SYNTHROID 300 MCG PO (06:17)
[2024-12-26] MEDS: ProAmatine 10 MG PO ×4 (06:17→23:10)
[2024-12-26 06:19] LABS: INR 2.32; PT 25.6 Sec (11.4-14.6)
[2024-12-26] MEDS: FLOVENT 110 MCG INHALER 2 PUFF INH ×2 (07:48→20:43)
[2024-12-26] MEDS: LAMICTAL 150 MG PO ×2 (07:59→20:08)
[2024-12-26] MEDS: PROTONIX 40 MG PO (07:59)
[2024-12-26] MEDS: RENVELA 800 MG PO ×3 (07:59→17:38)
[2024-12-26] MEDS: CYTOMEL 75 MICROGRAM PO (08:00)
[2024-12-26] MEDS: FLORINEF 0.1 MG PO (08:01)
[2024-12-26] MEDS: WELLBUTRIN SR (12 hour sustained release) 150 MG PO (08:04)
[2024-12-26] MEDS: RETACRIT 10000 UNITS IV (09:09)
[2024-12-26] MEDS: MANNITOL 25% 12.5 GRAMS IV (09:10)
--- NOTE | 2024-12-26 11:10 | W.PN.HOSP.TC ---
Today's Communication/Plan
-
cont heparin with coumadin
INR in AM
Assessment / Plan
Assessment / Plan
49yo M resident of [facility] due to non-ambulatory status, chronic hypoxic respiratory failure on 3L home O2, with PMHx of HFrEF, ESRD on HD, DM, HLD, A.fib, mechanical AV (card recommended INR 2.5-3.0), JOVITA came with LUE AV fistula ulceration and had
revision by VascSx on 12/19/24 with hematoma developed at the site. DUe to that patient was unable to use fistula - permacath placed. Heparin bridging for therapeutic INR started
A/P:
#Mechanical MV
#Afib
Heparin bridging for INR 2.5-3.0 while cont home coumadin.
#L AV fistula bleeding, ulceration and necrotic skin
s/p reveision by vascSx
No concern for infection
Cannot use AV fistula
#ESRD on HD
Permacath placed
HD as per nepphro
Epo as per nephro
#Acute blood loss anemia 2/2 bleeding from AV fistula on anemia 2/2 ESRD
follow Hgb, transfuse as needed
#Hypotension, chronic
on midodrine
#DM type 2 with nephropathy
insulin, accuchecks, DM diet
#HLD
#chronic HFrEF
#JOVITA
#Hypothyroidism
#COPD with chronic hypoxic respiratory failure on 3L home O2
#GERD
#DEpression
#HX of CVA/TIA
#Neuropathy
cont home meds
I have spent at least 36min reviewing chart, test results, communication with consultants and direct patient care
Anticipated Discharge: 24 - 48 hours
Subjective/Interval History
-
Date of Service: December 26, 2024
Objective Data
-
Labs:
Laboratory Results
12/26/24
05:30
WBC 6.9
Hgb 8.6 L
Hct 27.2 L
Plt Count 153
PT 25.6 H
INR 2.32
APTT 88.3 H
Vital Signs:
Vital Signs
Temp Pulse Resp BP Pulse Ox
97.8 F 82 18 95/48 97
12/26/24 10:00 12/26/24 07:53 12/26/24 07:53 12/25/24 23:00 12/26/24 10:00
I&O
12/25/24 12/26/24 12/27/24
06:59 06:59 06:59
Intake Total 730 / 730 1800 / 1800
Balance 730 / 730 1800 / 1800
Review of Systems
-
History Source: Patient
All other systems: Reviewed and negative
Physical Exam
-
General: No Apparent Distress
HEENT: Normocephalic
Respiratory: Clear to Auscultation
Cardiac: Irregular Rhythm
GI: Soft
Skin: Other (non-bleeding stitched skin on LUE)
Neuro: Awake, Alert, Oriented and AO x 3
Psych: Calm
--- NOTE | 2024-12-26 11:14 | CM ---
Addendum entered by Maye De Jesus 12/26/24 12:47:
Liaison spoke with CM updated clinicals sent to SNF 12/25/24. Patient LTC at [facility] and pending discharge, liaison anticipates being able to take patient when medically appropriate.
Original Note:
Patient seen at bedside, on HD. Plan to return to [facility] when medically appropriate. CM will call to confirm bed at [facility] with Liaison. CM will continue to follow for discharge planning needs.
Plan; return to [facility]
--- NOTE | 2024-12-26 11:22 | W.PN.NEPH.HD ---
Progress Note - Hemodialysis
-
Date of Service: December 26, 2024
Duration: 45 minutes and 3 hours
Potassium Bath: 2
Calcium Bath: 2.5
Opti-Dialyzer: 160
Ultrafiltration: Other (1.5-2.5)
Blood Flow: 400
Dialysate Flow: 600
Heparin: no
EPO: 50070
[2024-12-26] MEDS: HEPARIN 4000 UNITS INTRACATH (11:45)
[2024-12-26] MEDS: ULTRAM 50 MG PO (12:42)
[2024-12-26 13:32] LABS: APTT 112.5 Sec (23.4-35.0)
[2024-12-26] MEDS: ROXICODONE 5 MG PO ×2 (14:25→22:35)
[2024-12-26 15:03] VITALS: BP 111/35
[2024-12-26] MEDS: ZYRTEC 5 MG PO (17:43)
[2024-12-26 20:52] LABS: APTT > 200 Sec (23.4-35.0)
[2024-12-26] MEDS: DESYREL 150 MG PO (22:35)
[2024-12-26] MEDS: NEPHROCAP 1 CAPSULE PO (22:35)
[2024-12-26] MEDS: TOPROL XL PO (22:36)
[2024-12-26] MEDS: SENOKOT 8.6 MG PO (22:36)
[2024-12-26] MEDS: LIPITOR 20 MG PO (22:36)
[2024-12-26] MEDS: MELATONIN 3 MG PO (22:36)
[2024-12-26] MEDS: NEURONTIN 300 MG PO (22:36)
[2024-12-26 23:00] VITALS: BP 94/43
[2024-12-27] MEDS: HEPARIN 25000 UNITS/250 ML IV (01:57)
[2024-12-27 04:27] LABS: INR 2.74; PT 29.4 Sec (11.4-14.6)
[2024-12-27 04:29] LABS: APTT 85.1 Sec (23.4-35.0)
[2024-12-27] MEDS: SYNTHROID 300 MCG PO (05:46)
[2024-12-27] MEDS: ProAmatine 10 MG PO ×2 (05:47→11:22)
[2024-12-27 06:00] VITALS: BMI 31.3
[2024-12-27 07:22] VITALS: BP 95/51
[2024-12-27] MEDS: FLOVENT 110 MCG INHALER 2 PUFF INH (07:33)
[2024-12-27] MEDS: RENVELA 800 MG PO ×2 (08:30→11:23)
[2024-12-27] MEDS: CYTOMEL 75 MICROGRAM PO (08:31)
[2024-12-27] MEDS: LAMICTAL 150 MG PO (08:32)
[2024-12-27] MEDS: FLORINEF 0.1 MG PO (08:33)
[2024-12-27] MEDS: PROTONIX 40 MG PO (08:33)
[2024-12-27] MEDS: TOPROL XL 25 MG PO (08:38)
[2024-12-27] MEDS: ROXICODONE 5 MG PO (08:42)
--- NOTE | 2024-12-27 10:16 | W.PN.HOSP.TC ---
Today's Communication/Plan
-
dc
Assessment / Plan
Assessment / Plan
49yo M resident of due to non-ambulatory status, chronic hypoxic respiratory failure on 3L home O2, with PMHx of HFrEF, ESRD on HD, DM, HLD, A.fib, mechanical AV (card recommended INR 2.5-3.0), JOVITA came with LUE AV fistula ulceration and had
revision by VascSx on 12/19/24 with hematoma developed at the site. DUe to that patient was unable to use fistula - permacath placed. Heparin bridging for therapeutic INR started - reached INR 2.7 - heparin stopped and further close monitoring in
recommended.
A/P:
#Mechanical MV
#Afib
Heparin bridging for INR 2.5-3.0 while cont home Coumadin.
#L AV fistula bleeding, ulceration and necrotic skin
s/p reveision by vascSx
No concern for infection since afebrile, normal WBC count and no definitive infection seen by Vascular during revision
Cannot use AV fistula until swelling decreases
#ESRD on HD
Permacath placed
HD as per nepphro
Epo as per nephro
#Acute blood loss anemia 2/2 bleeding from AV fistula on anemia 2/2 ESRD
follow Hgb, transfuse as needed
#Hypotension, chronic
on midodrine
#DM type 2 with nephropathy
insulin, accuchecks, DM diet
#HLD
#chronic HFrEF
#JOVITA
#Hypothyroidism
#COPD with chronic hypoxic respiratory failure on 3L home O2
#GERD
#DEpression
#HX of CVA/TIA
#Neuropathy
cont home meds
I have spent at least 36min reviewing chart, test results, communication with consultants and direct patient care
Anticipated Discharge: Today
Subjective/Interval History
-
Date of Service: December 27, 2024
Objective Data
-
Labs:
Laboratory Results
12/27/24 12/27/24 12/27/24
04:08 06:00 10:00
PT 29.4 H Cancelled
INR 2.74 Cancelled
APTT 85.1 H Cancelled
Vital Signs:
Vital Signs
Temp Pulse Resp BP Pulse Ox
98.2 F 91 18 95/51 99
12/27/24 07:22 12/27/24 07:37 12/27/24 07:37 12/27/24 07:22 12/27/24 08:33
I&O
12/26/24 12/27/24 12/28/24
06:59 06:59 06:59
Intake Total 1800 / 1800 1539 / 1539
Balance 1800 / 1800 1539 / 1539
Review of Systems
-
History Source: Patient
All other systems: Reviewed and negative
Physical Exam
-
General: Well Developed
Respiratory: Clear to Auscultation
GI: Soft, Nontender and Nondistended
Neuro: Awake, Alert and Oriented
Psych: Calm
--- NOTE | 2024-12-27 10:56 | W.DCSUMMARY ---
Discharge Summary
Discharge Data
Date of Admission: 12/20/24
Date of Discharge: 12/27/24
-
Pending Results: No
Hospital Course
49yo M resident of SNF due to non-ambulatory status, chronic hypoxic respiratory failure on 3L home O2, with PMHx of HFrEF, ESRD on HD, DM, HLD, A.fib, mechanical AV (card recommended INR 2.5-3.0), JOVITA came with LUE AV fistula ulceration and had
revision by VascSx on 12/19/24 with hematoma developed at the site. DUe to that patient was unable to use fistula - permacath placed. Heparin bridging for therapeutic INR started - reached INR 2.7 - heparin stopped and further close monitoring in SNF
recommended. No concern for infection since afebrile, normal WBC count and no definitive infection seen by Vascular during revision. Cannot use AV fistula until swelling decreases
I have spent at least 36min reviewing chart, test results, communication with consultants and direct patient care
Patient was managed for:
#Mechanical MV
#Afib
#L AV fistula bleeding, ulceration and necrotic skin
#ESRD on HD
#Acute blood loss anemia 2/2 bleeding from AV fistula on anemia 2/2 ESRD
#Hypotension, chronic
#DM type 2 with nephropathy
#HLD
#chronic HFrEF
#JOVITA
#Hypothyroidism
#COPD with chronic hypoxic respiratory failure on 3L home O2
#GERD
#DEpression
#HX of CVA/TIA
#Neuropathy
Discharge Plan
-
Patient Disposition: Detention/SNF
Discharge Diagnosis/Procedures: AV fistula bleeding with revision by Dr. Mayer
End-stage renal disease
Anemia
Chronic HFrEF
Paroxysmal atrial fibrillation
History of mitral valve replacement
Diabetes-diet controlled
Hyperlipidemia
Hypothyroidism
Chronic hypotension
COPD
GERD
Depression
History of CVA
Diet: 2 Gram Sodium and Restrict fluids to 64 oz
Activity: No strenuous activity
Driving Restrictions: No driving
Bathing Restrictions: OK to Shower
Blood Work: cbc, INR 2 days
Other Services: PT
Activity Restrictions/Additional Instructions:
Once swelling subsides may attempt to access graft (AcuSeal quick access graft)
Stand Alone Forms: DC Instr - Vascular OR
Referrals:
William eBllamy I., [Family Provider] -
Paula Houser PA-C [Specified Professional Personl] - 01/03/25 10:30 am (Vascular surgery office follow-up)
Prescriptions:
New
warfarin [Jantoven] 3 mg Tablet
9 mg PO QPM Qty: 5 0RF
tramadol 50 mg Tablet
50 mg PO [id number] PRN (Reason: moderate pain) Qty: 0 0RF
Continued
gabapentin 300 MG capsule
300 mg PO HS
polyethylene glycol 3350 17 GRAMS powder in packet
17 grams PO SUTUTHSA
sevelamer carbonate 800 MG tablet
800 mg PO MEALS
atorvastatin 20 MG tablet
20 mg PO HS
levothyroxine 300 MCG tablet
300 mcg PO DAILY
pantoprazole 40 MG tablet,delayed release (DR/EC)
40 mg PO DAILY
metoprolol succinate 25 mg tablet extended release 24 hr
25 mg PO MOWEFR@2200
metoprolol succinate 25 mg tablet extended release 24 hr
25 mg PO SUTUTHSA@799,1999
budesonide 0.25 mg/2 mL Suspension For Nebulization
0.25 mg INHALATION R [id number] PRN (Reason: SOB/wheezing)
sennosides [senna] 8.6 mg Tablet
8.6 mg PO HS
midodrine 10 mg Tablet
10 mg PO Q6
Rx Instructions:
12/19/24: hold for SBP>=150.
acetaminophen 325 MG tablet
650 mg PO Q4HPRN PRN (Reason: mild pain/temp>100F)
lamotrigine [Lamictal] 150 mg Tablet
150 mg PO BID
cetirizine 10 mg Tablet
10 mg PO DAILY
melatonin 3 mg Tablet
3 mg PO HS
albuterol sulfate 90 mcg/actuation Hfa Aerosol Inhaler
2 puff INHALATION R Q4HPRN PRN (Reason: asthma)
Arnuity Ellipta 200 mcg/actuation Blister With Device
1 inh INHALATION R DAILY
bupropion HCl [Wellbutrin SR] 150 mg Tablet Sustained-Release 12 Hr
150 mg PO MOWEFR
fludrocortisone 0.1 mg tablet
0.1 mg PO DAILY Qty: 30 0RF
bisacodyl [Dulcolax (bisacodyl)] 10 mg Suppository
10 mg MI DAILY PRN (Reason: constipation)
trazodone 150 mg Tablet
150 mg PO HS
diphenhydramine HCl [Benadryl Allergy] 25 mg Tablet
25 mg PO Q6H PRN (Reason: allergies)
liothyronine [Cytomel] 50 mcg Tablet
75 mcg PO DAILY
B complex with C 20-folic acid 1 mg Capsule
1 cap PO HS
Discontinued
tramadol 50 mg tablet
50 mg PO Q6HPRN PRN (Reason: moderate pain)
benzonatate [Tessalon Perles] 100 mg Capsule
100 mg PO Q8H PRN (Reason: cough)
enoxaparin [Lovenox] 150 mg/mL Syringe
150 mg SC DAILY@1800
Discharge Orders:
Discharge Patient (As Directed); Ordered 12/27/24
Ordered By: Markell Vale
Discharge Date and Time
Print Language: ESTONIAN
[2024-12-27] MEDS: ULTRAM 50 MG PO (11:23)
--- NOTE | 2024-12-27 11:35 | CM ---
Addendum entered by Maye De Jesus 12/27/24 12:08:
[facility] to last picker patient in wheelchair van at 1pm. nursing aware and will bring patient to [facility] for last picker. CM updated Liaison.
Addendum entered by Maye De Jesus 12/27/24 11:43:
Wheelchair Van for transfer per transportation clerk.
Original Note:
Patient for discharge back to [facility]. Please call report to [phone]/fax [phone]. CM will complete transfer forms and complete IMM with patient. CM will continue to follow for discharge planning needs.
Plan; return to SNF.
[2024-12-27 12:42] VITALS: BP 93/53
--- NOTE | 2024-12-27 13:17 | PTCARENOTE ---
Discharge order written. Report called to Chasidy at [facility]. IV sites removed. Pt escorted to [facility] wheelchair van for discharge.
== END 2024-12-27 13:22 | DRG 264 ==
LOC: 3 WEST ACU 20:01
PROVIDERS: Hospitalist; Internal Medicine; Internal Medicine Nephrology; Nurse Practitioner Acute Care; Nurse Practitioner Family; Physician Assistant; Radiology Diagnostic Radiology; ADMITTING PHYSICIAN Hospitalist; ATTENDING PHYSICIAN Internal Medicine; CONSULT PHYSICIAN Specialist; EMERGENCY PHYSICIAN Emergency Medicine; FAMILY PHYSICIAN Internal Medicine; OTHER PHYSICIAN Surgery Vascular Surgery
PROC: 031C0JF Bypass Left Radial Artery to Lower Arm Vein with Synthetic Substitute, Open Approach (ICD-10-PCS; 2024-12-20)
PROC: 30233N1 Transfusion of Nonautologous Red Blood Cells into Peripheral Vein, Percutaneous Approach (ICD-10-PCS; 2024-12-20)
PROC: 05HM33Z Insertion of Infusion Device into Right Internal Jugular Vein, Percutaneous Approach (ICD-10-PCS; 2024-12-21)
PROC: 0JH60XZ Insertion of Tunneled Vascular Access Device into Chest Subcutaneous Tissue and Fascia, Open Approach (ICD-10-PCS; 2024-12-21)
PROC: B5131ZA Fluoroscopy of Right Jugular Veins using Low Osmolar Contrast, Guidance (ICD-10-PCS; 2024-12-21)
PROC: 5A1D70Z Performance of Urinary Filtration, Intermittent, Less than 6 Hours Per Day (ICD-10-PCS; 2024-12-24)
DX: T82.838A Hemorrhage due to vascular prosthetic devices, implants and grafts, initial encounter (principal); N18.6 End stage renal disease; I13.2 Hypertensive heart and chronic kidney disease with heart failure and with stage 5 chronic kidney disease, or end stage renal disease; I50.22 Chronic systolic (congestive) heart failure; J96.11 Chronic respiratory failure with hypoxia; E11.52 Type 2 diabetes mellitus with diabetic peripheral angiopathy with gangrene; D62 Acute posthemorrhagic anemia; D68.32 Hemorrhagic disorder due to extrinsic circulating anticoagulants; Y84.8 Other medical procedures as the cause of abnormal reaction of the patient, or of later complication, without mention of misadventure at the time of the procedure; Y92.9 Unspecified place or not applicable; Y84.1 Kidney dialysis as the cause of abnormal reaction of the patient, or of later complication, without mention of misadventure at the time of the procedure; J44.89 Other specified chronic obstructive pulmonary disease; E11.22 Type 2 diabetes mellitus with diabetic chronic kidney disease; D63.1 Anemia in chronic kidney disease; E03.9 Hypothyroidism, unspecified; E66.01 Morbid (severe) obesity due to excess calories; I07.1 Rheumatic tricuspid insufficiency; I27.20 Pulmonary hypertension, unspecified; G47.33 Obstructive sleep apnea (adult) (pediatric); K21.9 Gastro-esophageal reflux disease without esophagitis; F32.A Depression, unspecified; I95.89 Other hypotension; E78.00 Pure hypercholesterolemia, unspecified; K74.60 Unspecified cirrhosis of liver; F17.200 Nicotine dependence, unspecified, uncomplicated; E11.40 Type 2 diabetes mellitus with diabetic neuropathy, unspecified; E83.39 Other disorders of phosphorus metabolism; I48.0 Paroxysmal atrial fibrillation; S30.0XXA Contusion of lower back and pelvis, initial encounter; W06.XXXA Fall from bed, initial encounter; Y93.9 Activity, unspecified; Z60.2 Problems related to living alone; I25.2 Old myocardial infarction; Z68.31 Body mass index [BMI] 31.0-31.9, adult; Z99.2 Dependence on renal dialysis; Z99.81 Dependence on supplemental oxygen; Z88.8 Allergy status to other drugs, medicaments and biological substances; Z88.1 Allergy status to other antibiotic agents; Z88.0 Allergy status to penicillin; Z91.013 Allergy to seafood; Z79.890 Hormone replacement therapy; Z79.01 Long term (current) use of anticoagulants; Z79.52 Long term (current) use of systemic steroids; Z95.2 Presence of prosthetic heart valve; Z86.73 Personal history of transient ischemic attack (TIA), and cerebral infarction without residual deficits
CPT/HCPCS: 36558; 36832; 76937; 77001; 80048; 80051; 80053; 82607; 82728; 82962; 83540; 83550; 85025; 85027; 85610; 85730; 86850; 86900; 86901; 86920; 94640; 96374; 97163; 97166; 99152; 99153; 99284; C1750; G0257; J2916; P9016; P9045; P9047; Q5106

== ENCOUNTER → 2025-01-22 12:42 | Outpatient (REF) | payer MEDICARE, OTHER, SELFPAY | LOC: RAD 12:42 | PROVIDERS: ATTENDING PHYSICIAN Surgery Vascular Surgery; FAMILY PHYSICIAN Internal Medicine | DX: N18.6 End stage renal disease (principal); Z99.2 Dependence on renal dialysis; I77.0 Arteriovenous fistula, acquired | CPT/HCPCS: 93990 ==

== ENCOUNTER → 2025-03-21 09:45 | Outpatient (REF) | payer MEDICARE, OTHER, SELFPAY ==
[2025-03-21 10:05] VITALS: BP 94/58; BP_SYST 85
== END ==
LOC: RADI 09:45
PROVIDERS: ATTENDING PHYSICIAN Internal Medicine
DX: Z49.01 Encounter for fitting and adjustment of extracorporeal dialysis catheter (principal); N18.6 End stage renal disease
CPT/HCPCS: 36589

== ENCOUNTER 2025-05-07 16:06 | Emergency (ER) | payer MEDICARE, OTHER, SELFPAY ==
[2025-05-07 16:17] VITALS: BP 93/64
[2025-05-07 16:42] LABS: Hematocrit 32.0 % (39.0-52.0); Hemoglobin 10.4 g/dL (13.0-18.0); Mean Corp Hgb Conc. 32.5 g/dL (33.0-37.0); Mean Corpuscular Volume 90.7 fL (80.0-94.0); Nucleated Red Blood Cells % 0 % (-); Platelet Count 189 10^3/uL (130-400); Red Cell Dist. Width 17.3 % (11.5-14.5)
[2025-05-07 17:05] LABS: ALT (SGPT) 59 U/L (0-50); AST (SGOT) 41 U/L (17-59); Albumin 4.6 g/dl (3.5-5.0); Alkaline Phosphatase 169 U/L (38-126); Blood Urea Nitrogen 82 mg/dl (9-20); Calcium 7.5 mg/dl (8.4-10.2); Carbon Dioxide 21 mmol/L (22-30); Chloride 97 mmol/L (98-107); Glucose 93 mg/dl (70-99); Potassium 4.7 mmol/L (3.5-5.1); Sodium 135 mmol/L (135-145); Total Protein 7.7 g/dl (6.3-8.2); eGFR 4.67
[2025-05-07 17:46] VITALS: BP 101/56
[2025-05-07 17:48] VITALS: BMI 32.5
[2025-05-07 18:00] VITALS: BP 106/65
--- NOTE | 2025-05-07 18:06 | ED.GENMED ---
History of Present Illness
General
Chief Complaint: Catheter/Tube Problem
Time Seen by Provider: 05/07/25 17:48
History of Present Illness
History of Present Illness:
Patient is a 49-year-old man presenting to the emergency department for dialysis. Patient has ESRD on Tuesday dialysis. Patient last had dialysis on Tuesday. On Tuesday he went for dialysis and they stated that his fistula was not
working. He had an ultrasound done today that did show a patent fistula. He called his dialysis center and they stated that they were unable to fit him in today and to go to the emergency room for further evaluation. Patient denies feeling volume
overloaded. He is not in any respiratory distress. He is on his home oxygen. He does note that he does not feel a thrill in his fistula but they stated that the ultrasound showed a working fistula.
Past History
Past History
ED Past Medical History: Arrthythmia (Atrial fibrillation), Asthma, HTN, Hypercholesterolemia, NIDDM, PA, Renal failure (End stage.), Valvular disease, Hypothyroidism and Other (Acute and chronic respiratory failure, sepsis, endocarditis, mitral
valve, depressive episodes, anemia, morbid obesity, pulmonary hypertension, Pulmonary edema, Colitis, GI bleeding. Dialysis, Ulcers)
ED Past Surgical History: Cardiac (Heart valve prosthesis) and Other
Social History
Tobacco: Former smoker
Alcohol: Occasional
Drug: None
Personal:
[facility]
Employment: Not employed
Family History
Family History: Hypertension
Phy Exam
Physical Exam
Physical Exam:
GENERAL: in no acute distress
HEENT: normocephalic, extraocular movements intact, moist oral mucosa
NECK: normal inspection
RESPIRATORY: no respiratory distress, clear to auscultation bilaterally
CARDIOVASCULAR: regular rate and rhythm
ABDOMEN/: soft, non-distended, non-tender to palpation, no rebound or guarding
EXTREMITIES: non-tender, no edema/swelling, RUE with fistula though no palpable thrill
NEUROLOGIC: awake and alert, moves all extremities
SKIN: warm
Course
Orders/Labs/Results
Orders:
Orders
05/07/25 16:34
Complete Blood Count/With Diff Urgent
Comprehensive Metabolic Panel Urgent
Abnormal Lab Results
05/07/25
16:34
RBC 3.53 L 10^6/uL
(4.70-6.10)
Hgb 10.4 L g/dL
(13.0-18.0)
Hct 32.0 L %
(39.0-52.0)
MCHC 32.5 L g/dL
(33.0-37.0)
RDW 17.3 H %
(11.5-14.5)
Absolute Neuts (auto) 6.6 H 10^3/uL
(1.4-6.5)
Absolute Lymphs (auto) 0.7 L 10^3/uL
(1.2-3.4)
Neutrophils % 82.5 H %
(42.2-75.2)
Lymphocytes % 8.3 L %
(20.5-51.1)
Chloride 97 L mmol/L
(98-107)
Carbon Dioxide 21 L mmol/L
(22-30)
BUN 82 H mg/dl
(9-20)
Creatinine 11.9 H* mg/dL
(0.7-1.3)
Calcium 7.5 L mg/dl
(8.4-10.2)
ALT 59 H U/L
(0-50)
Alkaline Phosphatase 169 H U/L
(38-126)
05/07/25 16:34
05/07/25 16:34
Vital Signs
Initial and Last Documented VS:
Initial Vital Signs
Temp Pulse Resp BP Pulse Ox
97.4 F 84 20 93/64 99
05/07/25 16:17 05/07/25 16:17 05/07/25 16:17 05/07/25 16:17 05/07/25 16:17
Last Documented Vital Signs
Temp Pulse Resp BP Pulse Ox
98.5 F 81 18 106/65 99
05/07/25 18:08 05/07/25 18:08 05/07/25 18:08 05/07/25 18:08 05/07/25 18:09
MDM/Problems Addressed
Differential Diagnosis Includes:
Patient is a 49-year-old male with history of ESRD on Tuesday dialysis presenting to the emergency department for dialysis after missing a few sessions due to a failed fistula. He did receive confirmation of the fistula is working
by ultrasound this morning. Patient does not seem volume overloaded or in any respiratory distress. His blood pressure is slightly low though it was always this low per patient and he is on midodrine. He denies any medical complaints at this
time. We did obtain blood work which showed a normal potassium. His BUN is elevated. Given the elevated BUN I did reach out to nephrology to see if we could dialyze him here in the emergency department. Unfortunately unable to. Given that
patient otherwise has no reason for emergency dialysis we will discharge patient. He does feel comfortable waiting until tomorrow to get his usual dialysis. I again discussed with patient about the fact that I cannot feel a thrill on patient's
fistula and that I do not have access to his ultrasound. I did offer repeat study here. However, patient states that the thrill couldn't be palpated earlier either but showed a working fistula. Will discharge patient at this time with routine
dialysis for tomorrow.
*Pulse Oximetry
SaO2: 99
Oxygen Mode of Delivery: Room air
Patient hypoxic: yes
*Critical Care Note
Total Time (30-74mins, 75-104mins- exclusive of procedures): Not Applicable
ED Attending Note
-
Portions of this chart may have been created with voice recognition software.� Occasional wrong word or��sound alike� substitutions may have occurred due to the inherent limitations of voice recognition software.
Discharge Plan
Departure
Patient Disposition: Home (Routine Discharge)
Date of Disposition: 05/07/25
Time of Disposition: 18:15
Patient with high blood pressure during this ER visit?: No
Discharge Problem:
End-stage renal disease (ESRD)
Prescriptions:
No Action
gabapentin 300 MG capsule
300 mg PO HS
polyethylene glycol 3350 17 GRAMS powder in packet
17 grams PO SUTUTHSA
sevelamer carbonate 800 MG tablet
800 mg PO MEALS
atorvastatin 20 MG tablet
20 mg PO HS
levothyroxine 300 MCG tablet
300 mcg PO DAILY
pantoprazole 40 MG tablet,delayed release (DR/EC)
40 mg PO DAILY
metoprolol succinate 25 mg tablet extended release 24 hr
25 mg PO MOWEFR@2200
metoprolol succinate 25 mg tablet extended release 24 hr
25 mg PO SUTUTHSA@0800,2000
budesonide 0.25 mg/2 mL Suspension For Nebulization
0.25 mg INHALATION R [id number] PRN (Reason: SOB/wheezing)
sennosides [senna] 8.6 mg Tablet
8.6 mg PO HS
midodrine 10 mg Tablet
10 mg PO Q6
Rx Instructions:
12/19/24: hold for SBP>=150.
acetaminophen 325 MG tablet
650 mg PO Q4HPRN PRN (Reason: mild pain/temp>100F)
lamotrigine [Lamictal] 150 mg Tablet
150 mg PO BID
cetirizine 10 mg Tablet
10 mg PO DAILY
melatonin 3 mg Tablet
3 mg PO HS
albuterol sulfate 90 mcg/actuation Hfa Aerosol Inhaler
2 puff INHALATION R Q4HPRN PRN (Reason: asthma)
Arnuity Ellipta 200 mcg/actuation Blister With Device
1 inh INHALATION R DAILY
bupropion HCl [Wellbutrin SR] 150 mg Tablet Sustained-Release 12 Hr
150 mg PO MOWEFR
fludrocortisone 0.1 mg tablet
0.1 mg PO DAILY Qty: 30 0RF
bisacodyl [Dulcolax (bisacodyl)] 10 mg Suppository
10 mg MI DAILY PRN (Reason: constipation)
trazodone 150 mg Tablet
150 mg PO HS
diphenhydramine HCl [Benadryl Allergy] 25 mg Tablet
25 mg PO Q6H PRN (Reason: allergies)
liothyronine [Cytomel] 50 mcg Tablet
75 mcg PO DAILY
B complex and C 20-folic acid 1 mg Capsule
1 cap PO HS
warfarin [Jantoven] 3 mg Tablet
9 mg PO QPM Qty: 5 0RF
tramadol 50 mg Tablet
50 mg PO [id number] PRN (Reason: moderate pain) Qty: 0 0RF
Activity Restrictions/Additional Instructions:
Please go to your routine dialysis appointment tomorrow
Interventions
Interventions:
*Risk Screen - Suicide Last Done: 05/07/25 16:17
*General Assessment Last Done: 05/07/25 17:49
*Neglect/Abuse Screening Last Done: 05/07/25 17:49
*ED- Fall Risk Assessment Last Done: 05/07/25 17:49
*ED COVID-19 Vaccine History Last Done: 05/07/25 17:49
TI-Kvvjwo-Jryqnncvpj Assessment Last Done: 05/07/25 18:08
ED-Male Genitourinary Assessment Last Done: 05/07/25 18:08
Discharge Date and Time
Print Language: ROMANIAN
[2025-05-07 18:08] VITALS: BP 106/65
[2025-05-07 19:00] VITALS: BP 104/64
[2025-05-07 20:00] VITALS: BP 97/68
== END 2025-05-07 21:23 | disposition home or self-care (01) ==
LOC: EMR 16:06
PROVIDERS: Emergency Medicine; EMERGENCY PHYSICIAN Student in an Organized Health Care Education/Training Program; FAMILY PHYSICIAN Internal Medicine
DX: I12.0 Hypertensive chronic kidney disease with stage 5 chronic kidney disease or end stage renal disease (principal); E11.22 Type 2 diabetes mellitus with diabetic chronic kidney disease; N18.6 End stage renal disease; I48.91 Unspecified atrial fibrillation; J45.909 Unspecified asthma, uncomplicated; I27.20 Pulmonary hypertension, unspecified; E03.9 Hypothyroidism, unspecified; E66.01 Morbid (severe) obesity due to excess calories; E78.00 Pure hypercholesterolemia, unspecified; Z82.49 Family history of ischemic heart disease and other diseases of the circulatory system; Z87.891 Personal history of nicotine dependence; Z99.2 Dependence on renal dialysis
CPT/HCPCS: 99283; 80053; 85025

== ENCOUNTER → 2025-05-15 15:34 | Outpatient (REF) | payer OTHER, SELFPAY ==
[2025-05-15 15:56] LABS: Hemoglobin 6.9 g/dL (13.0-18.0)
== END ==
LOC: OLAB 15:34
PROVIDERS: ATTENDING PHYSICIAN Internal Medicine
DX: N18.6 End stage renal disease (principal)
CPT/HCPCS: 36415; 85018

== ENCOUNTER 2025-05-15 16:47 | Emergency (ER) | payer MEDICARE, OTHER, SELFPAY ==
[2025-05-15] VITALS (18 sets, daily range): BP systolic 70–108; BP diastolic 10–63; BMI 30.7
[2025-05-15 17:57] LABS: Hematocrit 21.8 % (39.0-52.0); Hemoglobin 7.2 g/dL (13.0-18.0); Mean Corp Hgb Conc. 33.0 g/dL (33.0-37.0); Mean Corpuscular Volume 92.8 fL (80.0-94.0); Nucleated Red Blood Cells % 0 % (-); Platelet Count 237 10^3/uL (130-400); Red Cell Dist. Width 18.1 % (11.5-14.5)
--- NOTE | 2025-05-15 17:57 | ED.GENMED ---
History of Present Illness
General
Chief Complaint: Rectal Bleeding
Source: patient
Time Seen by Provider: 05/15/25 17:40
History of Present Illness
History of Present Illness:
49-year-old male was sent to the emergency room from [facility] for abnormal blood work. Patient was told his hemoglobin was 5. Patient states he has been experiencing bright red blood per rectum. This has occurred once a day for
the past 4 days. He denies any abdominal pain. Patient had dialysis performed today and apparently the blood was drawn on dialysis. He denies any chest pain. He has chronic shortness of breath no worse than normal
Past History
Past History
ED Past Medical History: Arrthythmia (Atrial fibrillation), Asthma, HTN, Hypercholesterolemia, NIDDM, HI, Renal failure (End stage.), Valvular disease, Hypothyroidism and Other (Acute and chronic respiratory failure, sepsis, endocarditis, mitral
valve, depressive episodes, anemia, morbid obesity, pulmonary hypertension, Pulmonary edema, Colitis, GI bleeding. Dialysis, Ulcers)
ED Past Surgical History: Cardiac (Heart valve prosthesis) and Other
Social History
Tobacco: Former smoker
Alcohol: Occasional
Drug: None
Personal:
Living: care home ( [facility])
Employment: Not employed
Family History
Family History: Hypertension
Phy Exam
Physical Exam
Physical Exam:
General: Awake, Alert, Oriented X3. Appears chronically ill, no distress
Vitals: unremarkable
Head: Atraumatic
Eyes: Pupils equal, EOMI
Throat: Airway intact, no exudates
Neck: Trachea midline
Lungs: Clear and equal b/l
Heart: Regular rate, no murmurs
Abd: Soft, Nontender, No pulsatile mass
Rectal: Hard stool, no blood, no melena
Neuro: Grossly nonfocal
Skin: Warm, dry, no rash
Extremities: pulses equal b/l, no edema. Left upper extremity AV fistula
Course
Orders/Labs/Results
Orders:
Orders
05/15/25 16:52
EKG [Electrocardiogram (*1)] Stat
Reason for Study: Other
Other Reason for Exam: gi bleed
05/15/25 16:53
EKG- Treatment ONCE
05/15/25 17:51
Type+Screen Urgent
Basic Metabolic Panel Urgent
Complete Blood Count/With Diff Urgent
PTT Urgent
Prothrombin Time Urgent
05/15/25 19:00
Blood Bank Products [* Blood Bank Products] Urgent
Blood Bank Products: *Packed RBC Leuko(PRBC's)
Quantity: 1
Transfuse Today: Yes
Reason: Anemia
Abnormal Lab Results
05/15/25
17:51
RBC 2.35 L 10^6/uL
(4.70-6.10)
Hgb 7.2 L g/dL
(13.0-18.0)
Hct 21.8 L %
(39.0-52.0)
RDW 18.1 H %
(11.5-14.5)
Abs Immat Gran (auto) 0.1 H 10^3/uL
(0-0.05)
Absolute Neuts (auto) 7.1 H 10^3/uL
(1.4-6.5)
Absolute Lymphs (auto) 0.8 L 10^3/uL
(1.2-3.4)
Immature Gran % 0.6 H %
(0-0.5)
Neutrophils % 81.0 H %
(42.2-75.2)
Lymphocytes % 8.9 L %
(20.5-51.1)
PT 24.4 H Sec
(11.4-14.6)
APTT 35.3 H Sec
(23.4-35.0)
Chloride 97 L mmol/L
(98-107)
Creatinine 3.9 H mg/dL
(0.7-1.3)
Calcium 8.2 L mg/dl
(8.4-10.2)
Crossmatch IS Only See Detail
05/15/25 17:51
05/15/25 17:51
Vital Signs
Initial and Last Documented VS:
Initial Vital Signs
Pulse Ox
100
05/15/25 16:47
Last Documented Vital Signs
Temp Pulse Resp BP Pulse Ox
98.2 F 81 14 92/58 95
05/15/25 21:00 05/16/25 02:45 05/16/25 02:45 05/16/25 02:45 05/16/25 02:45
MDM/Problems Addressed
Differential Diagnosis Includes:
External hemorrhoids, internal hemorrhoids, diverticular bleed
MDM/Problems Addressed:
Patient sent to the emergency room for anemia. There was some description of bloody stool. Patient states he has a little bit of blood which is bright red around normal stool once a day. Presentation not typical for true lower GI bleed. His
hemoglobin is low at 7.2. However the patient would be expected to have anemia given his end-stage renal disease and all his comorbidities. Will transfuse the patient a unit of blood. He can be discharged after the unit.
*Pulse Oximetry
SaO2: 100
Nasal Cannula flow liters per minute: 3
Patient hypoxic: no
*EKG
Interpreted by ED Provider?: Yes
Heart Rate: 87
Rate: normal
Rhythm: a-fib
Interval: normal interval
QRS Pattern: normal QRS
Ischemia: non-specific ST changes
*Critical Care Note
Total Time (30-74mins, 75-104mins- exclusive of procedures): Not Applicable
Data Reviewed
Review of Other/Old Records Reveals: Progress Notes
Patient Management
Social determinants of health affecting care: Living situation
ED Attending Note
-
Portions of this chart may have been created with voice recognition software.� Occasional wrong word or��sound alike� substitutions may have occurred due to the inherent limitations of voice recognition software.
Discharge Plan
Departure
Patient Disposition: Home (Routine Discharge)
Date of Disposition: 05/16/25
Time of Disposition: 00:22
Patient with high blood pressure during this ER visit?: No
Discharge Problem:
Symptomatic anemia, Bleeding external hemorrhoids
Instructions: Anemia of inflammation (anemia of chronic disease)
Prescriptions:
No Action
gabapentin 300 MG capsule
300 mg PO HS
polyethylene glycol 3350 17 GRAMS powder in packet
17 grams PO SUTUTHSA
sevelamer carbonate 800 MG tablet
800 mg PO MEALS
atorvastatin 20 MG tablet
20 mg PO HS
pantoprazole 40 MG tablet,delayed release (DR/EC)
40 mg PO DAILY
metoprolol succinate 25 mg tablet extended release 24 hr
25 mg PO MOWEFR@2200
metoprolol succinate 25 mg tablet extended release 24 hr
25 mg PO SUTUTHSA@0800,2000
budesonide 0.25 mg/2 mL Suspension For Nebulization
0.25 mg INHALATION R [id number] PRN (Reason: SOB/wheezing)
sennosides [senna] 8.6 mg Tablet
8.6 mg PO HS
midodrine 10 mg Tablet
10 mg PO Q6H
acetaminophen 325 MG tablet
650 mg PO Q4HPRN MDD 3000 mg PRN (Reason: mild pain/temp>100F)
cetirizine 10 mg Tablet
10 mg PO DAILY
albuterol sulfate 90 mcg/actuation Hfa Aerosol Inhaler
2 puff INHALATION R Q4HPRN PRN (Reason: asthma)
bupropion HCl [Wellbutrin SR] 150 mg Tablet Sustained-Release 12 Hr
150 mg PO MOWEFR
fludrocortisone 0.1 mg tablet
0.1 mg PO DAILY Qty: 30 0RF
bisacodyl [Dulcolax (bisacodyl)] 10 mg Suppository
10 mg UT DAILYPRN PRN (Reason: constipation)
trazodone 150 mg Tablet
150 mg PO HS@0000
diphenhydramine HCl [Benadryl Allergy] 25 mg Tablet
25 mg PO Q6HPRN PRN (Reason: allergies)
lamotrigine [Lamictal] 200 mg Tablet
200 mg PO BID
lidocaine-prilocaine 2.5-2.5 % Cream
1 applic TOPICAL MOWEFR
warfarin 6 mg Tablet
12 mg PO QPM
Patient Comments:
05/15/2025, give until 05/20/2025 per care home paperwork.
Nephrocaps 1 mg Capsule
1 cap PO HS
fluticasone furoate 200 mcg/actuation Blister With Device
1 inh INHALATION R DAILY
Tirosint-Nessa 175 mcg/mL Solution
175 mcg PO DAILY
tramadol 50 mg tablet
50 mg PO [id number] PRN (Reason: moderate-severe pain)
Referrals:
William Bellamy I., DO [Family Provider, Internal Medicine]
Interventions
Interventions:
*Risk Screen - Suicide Last Done: 05/15/25 16:47
*General Assessment Last Done: 05/15/25 16:47
*Neglect/Abuse Screening Last Done: 05/15/25 16:47
*ED- Fall Risk Assessment Last Done: 05/15/25 16:47
*ED COVID-19 Vaccine History Last Done: 05/16/25 00:38
*Nursing Disposition Last Done: 05/16/25 02:45
OY-Lakkhj-Wkasjmgzcu Assessment Last Done: 05/15/25 16:47
ED- Cardiac Assessment Last Done: 05/15/25 16:47
ED- Pulmonary Assessment Last Done: 05/15/25 16:47
Discharge Date and Time
Discharge Date/Time: 05/16/25 02:46
Print Language: SIERRA LEONEAN
[2025-05-15 18:07] LABS: INR 2.14; PT 24.4 Sec (11.4-14.6)
[2025-05-15 18:08] LABS: APTT 35.3 Sec (23.4-35.0)
[2025-05-15 18:10] LABS: Blood Urea Nitrogen 15 mg/dl (9-20); Calcium 8.2 mg/dl (8.4-10.2); Carbon Dioxide 28 mmol/L (22-30); Chloride 97 mmol/L (98-107); Estimated Creatinine Clearance 28 ml/min; Glucose 85 mg/dl (70-99); Sodium 135 mmol/L (135-145); eGFR 17.80
[2025-05-16 01:01] VITALS: BP 90/55
[2025-05-16 01:30] VITALS: BP 92/58
[2025-05-16 02:45] VITALS: BP 92/58
== END 2025-05-16 02:46 | disposition home or self-care (01) ==
LOC: EMR 16:47
PROVIDERS: Student in an Organized Health Care Education/Training Program; EMERGENCY PHYSICIAN Emergency Medicine; FAMILY PHYSICIAN Internal Medicine
DX: D64.9 Anemia, unspecified (principal); K64.4 Residual hemorrhoidal skin tags; I48.91 Unspecified atrial fibrillation; J45.909 Unspecified asthma, uncomplicated; I12.0 Hypertensive chronic kidney disease with stage 5 chronic kidney disease or end stage renal disease; E11.22 Type 2 diabetes mellitus with diabetic chronic kidney disease; N18.6 End stage renal disease; E03.9 Hypothyroidism, unspecified; E66.01 Morbid (severe) obesity due to excess calories; E78.00 Pure hypercholesterolemia, unspecified; I27.20 Pulmonary hypertension, unspecified; Z82.49 Family history of ischemic heart disease and other diseases of the circulatory system; Z87.891 Personal history of nicotine dependence; Z99.2 Dependence on renal dialysis
CPT/HCPCS: 99283; 80048; 85025; 85610; 85730; 86850; 86900; 86901; 86920; 93005; P9016

== ENCOUNTER 2025-05-28 13:15 | Emergency (ER) | payer MEDICARE, OTHER, SELFPAY ==
[2025-05-28] VITALS (9 sets, daily range): BP systolic 76–101; BP diastolic 44–65
[2025-05-28 14:03] LABS: Hematocrit 20.1 % (39.0-52.0); Hemoglobin 6.4 g/dL (13.0-18.0); Mean Corp Hgb Conc. 31.8 g/dL (33.0-37.0); Mean Corpuscular Volume 98.5 fL (80.0-94.0); Nucleated Red Blood Cells % 1.3 % (-); Platelet Count 190 10^3/uL (130-400); Red Cell Dist. Width 18.6 % (11.5-14.5)
--- NOTE | 2025-05-28 14:11 | ED.GENMED ---
History of Present Illness
General
Chief Complaint: Breathing Problem
Source: patient and records
Time Seen by Provider: 05/28/25 13:56
History of Present Illness
History of Present Illness:
49-year-old male presents emergency department because his hemoglobin was noted to be 6. Patient states he is chronically short of breath and this is unchanged, as well as chronic weakness and dizziness. He denies chest pain, black stool,
bleeding, abdominal pain, nausea, vomiting, or other complaints. Patient gets hemodialysis Tuesday and has maintained that schedule most recently had dialysis yesterday.
Past History
Past History
ED Past Medical History: Arrthythmia (Atrial fibrillation), Asthma, HTN, Hypercholesterolemia, NIDDM, [place], Renal failure (End stage.), Valvular disease, Hypothyroidism and Other (Acute and chronic respiratory failure, sepsis, endocarditis, mitral
valve, depressive episodes, anemia, morbid obesity, pulmonary hypertension, Pulmonary edema, Colitis, GI bleeding. Dialysis, Ulcers)
ED Past Surgical History: Cardiac (Heart valve prosthesis) and Other
Social History
Tobacco: Former smoker
Alcohol: Occasional
Drug: None
Personal:
Living: half-way ( [facility])
Employment: Not employed
Family History
Family History: Hypertension
Phy Exam
Physical Exam
Physical Exam:
GENERAL: Alert , in no apparent distress
EYE: pupils equal and reactive
NECK: Supple, no significant adenopathy.
ENT: o/p clr, mmm.
CARDIAC: Regular rate and rhythm .
LUNGS: Clear breath sounds bilaterally, no acute respiratory distress, no wheezes/rales/rhonchi
ABDOMEN: Soft, without focal tenderness, no r/g
NEUROLOGICAL: Alert and oriented, no focal neuro deficits
SKIN: Warm and dry, skin intact.
MUSCULOSKELETAL: No edema, well perfused.
PSYCH: Normal and appropriate interaction.
Left upper extremity AV fistula with bruit noted no active bleeding
Scores
Heart Failure Risk
Heart Failure Risk Score: Not Applicable
Course
Orders/Labs/Results
Orders:
Orders
05/28/25 13:20
Electrocardiogram (*1) Urgent
Reason for Study: Shortness of Breath
EKG- Treatment ONCE
05/28/25 13:32
Type+Screen Urgent
Complete Blood Count/With Diff Urgent
Comprehensive Metabolic Panel Urgent
05/28/25 13:53
CXR Port [CR Chest Portable - 1 View] Urgent
Comment:
Reason For Exam: sob
Reason Study Needs to be Portable: Patient Unstable
05/28/25 14:17
* Blood Bank Products Urgent
Blood Bank Products: *Packed RBC Leuko(PRBC's)
Quantity: 1
Transfuse Today: Yes
Reason: Anemia
05/28/25 14:18
IV Insert/Care/Rem.- Treatment PRN
Abnormal Lab Results
05/28/25
13:32
RBC 2.04 L 10^6/uL
(4.70-6.10)
Hgb 6.4 L* g/dL
(13.0-18.0)
Hct 20.1 L* %
(39.0-52.0)
MCV 98.5 H fL
(80.0-94.0)
MCH 31.4 H pg
(27.0-31.0)
MCHC 31.8 L g/dL
(33.0-37.0)
RDW 18.6 H %
(11.5-14.5)
Absolute Neuts (auto) 6.6 H 10^3/uL
(1.4-6.5)
Absolute Lymphs (auto) 0.7 L 10^3/uL
(1.2-3.4)
Neutrophils % 84.4 H %
(42.2-75.2)
Lymphocytes % 8.3 L %
(20.5-51.1)
Sodium 134 L mmol/L
(135-145)
Chloride 96 L mmol/L
(98-107)
BUN 29 H mg/dl
(9-20)
Creatinine 6.4 H* mg/dL
(0.7-1.3)
Glucose 130 H mg/dl
(70-99)
Calcium 7.4 L mg/dl
(8.4-10.2)
Crossmatch IS Only See Detail
05/28/25 13:32
05/28/25 13:32
Vital Signs
Initial and Last Documented VS:
Initial Vital Signs
Temp Pulse Resp BP Pulse Ox
98.1 F 82 16 96/44 100
05/28/25 13:18 05/28/25 13:18 05/28/25 13:18 05/28/25 13:18 05/28/25 13:18
Last Documented Vital Signs
Temp Pulse Resp BP Pulse Ox
98.4 F 83 16 80/45 99
05/28/25 17:31 05/28/25 20:45 05/28/25 20:45 05/28/25 17:31 05/28/25 20:15
*Pulse Oximetry
SaO2: 100
Nasal Cannula flow liters per minute: 3
Patient hypoxic: no
*Critical Care Note
Total Time (30-74mins, 75-104mins- exclusive of procedures): Not Applicable
Update Note
Update Note:
Patient presents to the Emergency Department with ___reported anemia associated with dyspnea dizziness fatigue
Number and Complexity of Problems Addressed at the Encounter
� Chronic conditions affecting care:
� Acute Exacerbation and/or Progression of Chronic Illness:
� Differential Diagnosis includes: But not limited to active bleeding, anemia related to chronic disease, electrolyte disorder, etc. etc.
Amount and/or Complexity of Data to be Reviewed and Analyzed
� I performed an independent evaluation of and my interpretation is:
EKG:
CT:
Xrays:
Laboratory Studies: Critical value call to me at 6.4. In comparison on May 15 patient's hemoglobin was 7.2. In reviewing prior values, his hemoglobin has varied between 7 and 10.
Other:
� Review of other/old records reveals:
� Clinical information was obtained by an independent historian:
� Prescriptions/Medications Considered but not given:
� Further testing considered but not performed:
Risk of Complications and/or Morbidity or Mortality of Patient Management
� Social determinants of health affecting care:
� Discussion with other providers (PCP, Hospitalists, Consultants, etc):
� Escalation of care including admission/observation vs risk of discharge considered: Blood pressure noted here, this essentially patient's baseline in comparison to prior visits.
Patient's blood pressure remains at baseline. Anemia here noted appears to be worsening of his chronic anemia, and somewhat expected given patient's multiple medical problems including chronic kidney disease. No signs or symptoms of active
bleeding in history and physical exam. He denies black stool, hematemesis, nosebleeds, etc. Patient will be transfused x 1 unit and return back to facility for continued care.
ED Attending Note
-
Portions of this chart may have been created with voice recognition software.� Occasional wrong word or��sound alike� substitutions may have occurred due to the inherent limitations of voice recognition software.
Discharge Plan
Departure
Patient Disposition: Intermediate/SNF
Date of Disposition: 05/28/25
Time of Disposition: 17:58
Discharge Problem:
Anemia
Instructions: Anemia in adults, possibly from low iron - ED discharge instructions
Prescriptions:
No Action
gabapentin 300 MG capsule
300 mg PO HS
polyethylene glycol 3350 17 GRAMS powder in packet
17 grams PO SUTUTHSA
sevelamer carbonate 800 MG tablet
800 mg PO MEALS
atorvastatin 20 MG tablet
20 mg PO HS
pantoprazole 40 MG tablet,delayed release (DR/EC)
40 mg PO DAILY
metoprolol succinate 25 mg tablet extended release 24 hr
25 mg PO MOWEFR@2200
metoprolol succinate 25 mg tablet extended release 24 hr
25 mg PO SUTUTHSA@0800,2000
budesonide 0.25 mg/2 mL Suspension For Nebulization
0.25 mg INHALATION R [id number] PRN (Reason: SOB/wheezing)
sennosides [senna] 8.6 mg Tablet
8.6 mg PO HS
midodrine 10 mg Tablet
10 mg PO Q6H
acetaminophen 325 MG tablet
650 mg PO Q4HPRN PRN (Reason: mild pain/temp>100F)
cetirizine 10 mg Tablet
10 mg PO DAILY
albuterol sulfate 90 mcg/actuation Hfa Aerosol Inhaler
2 puff INHALATION R Q4HPRN PRN (Reason: asthma)
bupropion HCl [Wellbutrin SR] 150 mg Tablet Sustained-Release 12 Hr
150 mg PO MOWEFR
fludrocortisone 0.1 mg tablet
0.1 mg PO DAILY Qty: 30 0RF
bisacodyl [Dulcolax (bisacodyl)] 10 mg Suppository
10 mg LA DAILYPRN PRN (Reason: constipation)
trazodone 150 mg Tablet
150 mg PO HS@0000
diphenhydramine HCl [Benadryl Allergy] 25 mg Tablet
25 mg PO Q6HPRN PRN (Reason: allergies)
lamotrigine [Lamictal] 200 mg Tablet
200 mg PO BID
lidocaine-prilocaine 2.5-2.5 % Cream
1 applic TOPICAL MOWEFR
warfarin 6 mg Tablet
13 mg PO QPM
Nephrocaps 1 mg Capsule
1 cap PO HS
fluticasone furoate 200 mcg/actuation Blister With Device
1 inh INHALATION R DAILY
Tirosint-Nessa 175 mcg/mL Solution
175 mcg PO DAILY
tramadol 50 mg tablet
50 mg PO [id number] PRN (Reason: moderate-severe pain)
diclofenac sodium [Voltaren] 1 % Gel
0 g TOPICAL DAILYPRN PRN (Reason: left thumb)
diclofenac sodium [Voltaren] 1 % Gel
0 g TOPICAL DAILY
Referrals:
William Bellamy I., DO [Family Provider, Internal Medicine]
Interventions
Interventions:
*Risk Screen - Suicide Last Done: 05/28/25 15:15
*General Assessment Last Done: 05/28/25 14:38
*Neglect/Abuse Screening Last Done: 05/28/25 15:15
*ED- Fall Risk Assessment Last Done: 05/28/25 14:16
*ED COVID-19 Vaccine History Last Done: 05/28/25 14:16
*Nursing Disposition Last Done: 05/28/25 20:53
ED- Cardiac Assessment Last Done: 05/28/25 14:18
ED- Pulmonary Assessment Last Done: 05/28/25 14:18
Discharge Date and Time
Discharge Date/Time: 05/28/25 20:53
Print Language: INDIAN
[2025-05-28 14:19] LABS: ALT (SGPT) 26 U/L (0-50); AST (SGOT) 30 U/L (17-59); Albumin 4.3 g/dl (3.5-5.0); Alkaline Phosphatase 107 U/L (38-126); Blood Urea Nitrogen 29 mg/dl (9-20); Calcium 7.4 mg/dl (8.4-10.2); Carbon Dioxide 26 mmol/L (22-30); Chloride 96 mmol/L (98-107); Glucose 130 mg/dl (70-99); Potassium 3.6 mmol/L (3.5-5.1); Sodium 134 mmol/L (135-145); Total Protein 6.9 g/dl (6.3-8.2); eGFR 9.82
== END 2025-05-28 20:53 ==
LOC: EMR 13:15
PROVIDERS: Emergency Medicine; EMERGENCY PHYSICIAN Emergency Medicine; FAMILY PHYSICIAN Internal Medicine
DX: D64.9 Anemia, unspecified (principal); R53.1 Weakness; R42 Dizziness and giddiness; I48.91 Unspecified atrial fibrillation; J45.909 Unspecified asthma, uncomplicated; E03.9 Hypothyroidism, unspecified; I12.0 Hypertensive chronic kidney disease with stage 5 chronic kidney disease or end stage renal disease; E11.22 Type 2 diabetes mellitus with diabetic chronic kidney disease; N18.6 End stage renal disease; E66.01 Morbid (severe) obesity due to excess calories; E78.00 Pure hypercholesterolemia, unspecified; Z82.49 Family history of ischemic heart disease and other diseases of the circulatory system; Z87.891 Personal history of nicotine dependence; Z99.2 Dependence on renal dialysis
CPT/HCPCS: 99283; 71045; 80053; 85025; 86850; 86900; 86901; 86920; 93005; P9016

== ENCOUNTER 2025-08-06 08:04 | Inpatient (IN) | payer MEDICARE, OTHER, SELFPAY ==
[2025-08-06] VITALS (22 sets, daily range): BP systolic 65–110; BP diastolic 48–73; BMI 33.6; BMI 32.1
--- NOTE | 2025-08-06 05:07 | ED.GENMED ---
History of Present Illness
<Sharyn Sanchez PA-C - Last Filed: 08/06/25 06:50>
General
Chief Complaint: Catheter/Tube Problem
Source: patient
Exam Limitations: none
Time Seen by Provider: 08/06/25 05:01
Nursing documentation reviewed up to this point in time: agreed with
History of Present Illness
History of Present Illness:
49-year-old male past medical history of end-stage renal disease on dialysis, COPD, A-fib on warfarin, CHF, hypertension, coronary artery disease, GERD, who presents to the ER today with concerns of bleeding from his left dialysis fistula as well as
elevated INR. He reports pain at the site of his fistula as well. Bleeding controlled at this point and dressing is in place. He denies dizziness, lightheadedness, abdominal pain. He had dialysis yesterday and had it completed without any issue.
He gets dialysis Tuesday, Tuesday, and Tuesday. He subsequently had a bowel movement in the emergency department which revealed a large volume of dark tarry maroon-colored stool which was heme positive. He never had this happen before. He has a
history of multiple strokes in the past.
Past History
<Sharyn Sanchez PA-C - Last Filed: 08/06/25 06:50>
Past History
ED Past Medical History: Arrthythmia (Atrial fibrillation), Asthma, HTN, Hypercholesterolemia, NIDDM, [place], Renal failure (End stage.), Valvular disease, Hypothyroidism and Other (Acute and chronic respiratory failure, sepsis, endocarditis, mitral
valve, depressive episodes, anemia, morbid obesity, pulmonary hypertension, Pulmonary edema, Colitis, GI bleeding. Dialysis, Ulcers)
ED Past Surgical History: Cardiac (Heart valve prosthesis) and Other
Social History
Tobacco: Former smoker
Alcohol: Occasional
Drug: None
Personal:
Living: group home ( [facility]
Employment: Not employed
Family History
Family History: Hypertension
Review of Systems
<Sharyn Sanchez PA-C - Last Filed: 08/06/25 06:50>
Review of Systems
All Other Systems: ROS reviewed and negative except as documented in HPI and ROS
Phy Exam
<Sharyn Sanchez PA-C - Last Filed: 08/06/25 06:50>
Physical Exam
Physical Exam:
General: Patient is well appearing and in no acute distress; non-toxic
Skin: Warm and dry, no rashes or lesions
Head: Normocephalic, atraumatic
Eyes: Sclera non-icteric. EOMs intact.
Cardiac: Regular rate and rhythm
Peripheral Vascular: No lower ext swelling or edema. Left AV fistula site pulsatile no active bleeding
Pulm: Normal respiratory effort, no wheezes, rales, or rhonchi
Abdomen: No abdominal tenderness to palpation
Genitourinary: Heme positive dark colored stool in rectal vault
Neuro: CN II-XII intact, no focal neurologic deficits.
Psychiatric: Appropriate mood and affect.
Course
<Sharyn Sanchez PA-C - Last Filed: 08/06/25 06:50>
Orders/Labs/Results
Orders:
Orders
08/06/25 05:13
Complete Blood Count/With Diff Urgent
Comprehensive Metabolic Panel Urgent
Prothrombin Time Urgent
08/06/25 05:37
US Hemodialysis Graft Urgent
Comment: approved by Dr. Concepcion
Reason For Exam: left fistula pain
08/06/25 06:03
Pantoprazole [Protonix IV] 40 mg IV NOW STA
08/06/25 06:04
Blood Bank Products [* Blood Bank Products] Urgent
Blood Bank Products: *Packed RBC Leuko(PRBC's)
Quantity: 1
Transfuse Today: Yes
Reason: Bleeding
Type+Screen Urgent
08/06/25 06:09
Phytonadione [Mephyton] 5 mg PO NOW STA
08/06/25 06:28
Acetaminophen [Tylenol] 1,000 mg PO NOW STA
Abnormal Lab Results
08/06/25
05:13
RBC 2.52 L 10^6/uL
(4.70-6.10)
Hgb 7.3 L g/dL
(13.0-18.0)
Hct 22.7 L %
(39.0-52.0)
MCHC 32.2 L g/dL
(33.0-37.0)
RDW 15.5 H %
(11.5-14.5)
Abs Immat Gran (auto) 0.1 H 10^3/uL
(0-0.05)
Absolute Neuts (auto) 7.2 H 10^3/uL
(1.4-6.5)
Absolute Lymphs (auto) 1.0 L 10^3/uL
(1.2-3.4)
Immature Gran % 0.7 H %
(0-0.5)
Neutrophils % 80.3 H %
(42.2-75.2)
Lymphocytes % 10.6 L %
(20.5-51.1)
PT 55.9 H Sec
(11.4-14.6)
INR 6.52 H*
Sodium 133 L mmol/L
(135-145)
BUN 54 H mg/dl
(9-20)
Creatinine 6.6 H* mg/dL
(0.7-1.3)
Glucose 102 H mg/dl
(70-99)
Alkaline Phosphatase 129 H U/L
(38-126)
08/06/25 05:13
08/06/25 05:13
Vital Signs
Initial and Last Documented VS:
Initial Vital Signs
Temp Pulse Resp BP Pulse Ox
98.7 F 109 20 74/54 97
08/06/25 04:53 08/06/25 04:53 08/06/25 04:53 08/06/25 04:53 08/06/25 04:53
Last Documented Vital Signs
Temp Pulse Resp BP Pulse Ox
98.7 F 113 12 65/50 100
08/06/25 04:53 08/06/25 06:40 08/06/25 06:40 08/06/25 06:40 08/06/25 06:40
<Shamar Goodson, DO - Last Filed: 08/06/25 06:08>
Orders/Labs/Results
Orders:
Orders
08/06/25 05:13
Complete Blood Count/With Diff Urgent
Comprehensive Metabolic Panel Urgent
Prothrombin Time Urgent
08/06/25 05:37
US Hemodialysis Graft Urgent
Comment: approved by Dr. Concepcion
Reason For Exam: left fistula pain
08/06/25 06:03
Pantoprazole [Protonix IV] 40 mg IV NOW STA
08/06/25 06:04
Blood Bank Products [* Blood Bank Products] Urgent
Blood Bank Products: *Packed RBC Leuko(PRBC's)
Quantity: 1
Transfuse Today: Yes
Reason: Bleeding
Type+Screen Urgent
08/06/25 06:09
Phytonadione [Mephyton] 5 mg PO NOW STA
08/06/25 06:28
Acetaminophen [Tylenol] 1,000 mg PO NOW STA
Abnormal Lab Results
08/06/25
05:13
RBC 2.52 L 10^6/uL
(4.70-6.10)
Hgb 7.3 L g/dL
(13.0-18.0)
Hct 22.7 L %
(39.0-52.0)
MCHC 32.2 L g/dL
(33.0-37.0)
RDW 15.5 H %
(11.5-14.5)
Abs Immat Gran (auto) 0.1 H 10^3/uL
(0-0.05)
Absolute Neuts (auto) 7.2 H 10^3/uL
(1.4-6.5)
Absolute Lymphs (auto) 1.0 L 10^3/uL
(1.2-3.4)
Immature Gran % 0.7 H %
(0-0.5)
Neutrophils % 80.3 H %
(42.2-75.2)
Lymphocytes % 10.6 L %
(20.5-51.1)
PT 55.9 H Sec
(11.4-14.6)
INR 6.52 H*
Sodium 133 L mmol/L
(135-145)
BUN 54 H mg/dl
(9-20)
Creatinine 6.6 H* mg/dL
(0.7-1.3)
Glucose 102 H mg/dl
(70-99)
Alkaline Phosphatase 129 H U/L
(38-126)
08/06/25 05:13
08/06/25 05:13
Vital Signs
Initial and Last Documented VS:
Initial Vital Signs
Temp Pulse Resp BP Pulse Ox
98.7 F 109 20 74/54 97
08/06/25 04:53 08/06/25 04:53 08/06/25 04:53 08/06/25 04:53 08/06/25 04:53
Last Documented Vital Signs
Temp Pulse Resp BP Pulse Ox
98.7 F 113 12 65/50 100
08/06/25 04:53 08/06/25 06:40 08/06/25 06:40 08/06/25 06:40 08/06/25 06:40
<Sharyn Sanchez PA-C - Last Filed: 08/06/25 06:50>
MDM/Problems Addressed
Differential Diagnosis Includes:
ddx include fistula stenosis, lower GI bleed, gastric ulcer, diverticular bleed, supratherapeutic inr
MDM/Problems Addressed:
49-year-old male past medical history of end-stage renal disease on dialysis, COPD, A-fib on warfarin, CHF, hypertension, coronary artery disease, GERD, who presents to the ER today with concerns of bleeding from his left dialysis fistula as well as
elevated INR. He has also had a dark colored stool in the ER which is heme positive. On physical exam, he is well-appearing in no acute distress. He is hypertensive but he had dialysis yesterday and he is hypotensive at baseline. His hemoglobin
is 7.3 but he is anemic at baseline usually 7-8 however in light of acute blood loss will give blood as well as vitamin K. Will hold off on Kcentra as patient has extensive stroke history. Patient referred for admission.
<Sharyn Sanchez PA-C - Last Filed: 08/06/25 06:50>
*Pulse Oximetry
SaO2: 97
Oxygen Mode of Delivery: Room air
Patient hypoxic: no
*Critical Care Note
Total Time (30-74mins, 75-104mins- exclusive of procedures): Not Applicable (Critical care statement: A total of 30 minutes of critical care time was provided for this patient. This includes management of unstable vital signs, evaluation of the
patient at bedside, frequent reassessment, discussion with consultants/hospitalist, and review of pertinent medical records. This t)
<Sharyn Sanchez PA-C - Last Filed: 08/06/25 06:50>
Patient Management
Escalation/DeEscalation of care consider admission/obs:
admission indicated
ED Attending Note
<Sharyn Sanchez PA-C - Last Filed: 08/06/25 06:50>
-
Portions of this chart may have been created with voice recognition software.� Occasional wrong word or��sound alike� substitutions may have occurred due to the inherent limitations of voice recognition software.
<Shamar Goodson DO - Last Filed: 08/06/25 06:08>
ED Attending Note
Patient seen and examined by attending physician: Yes
I performed the substantive portion of visit, reviewed & personally made and approve the management plan that is documented in note by myself or KAHTY.: Yes
ED Attending Note:
I agree with Hope's note
Pt with bleeding from av fistula. Also lower gi blood. Bp a bit low but c/w previous visits.
General: Awake, Alert, Oriented X3. No acute distress. Appears chronically ill
Vitals: Mildly hypotensive
Head: Atraumatic
Eyes: Pupils equal, EOMI
Throat: Airway intact, no exudates
Neck: Trachea midline
Lungs: Clear and equal b/l
Heart: Regular rate, no murmurs
Abd: Soft, Nontender, No pulsatile mass
Neuro: Nonfocal
Skin: Warm, dry, no rash
Extremities: pulses equal b/l, no edema
Patient presents with bleeding from his AV fistula as well as lower GI bleeding. INR is fairly high at 7. Given a unit of blood given his moderate blood pressure and low hemoglobin. I would hold off on Kcentra at this point as the patient is
relatively stable. Protonix also ordered. Likely ICU admission.
Discharge Plan
Departure
Patient Disposition: Admit
Date of Disposition: 08/06/25
Time of Disposition: 06:20
Admit to: Telemetry
Presentation/result/management discussed w/ accepting MD/DO: Hospitalist
Patient with high blood pressure during this ER visit?: No
Condition: Fair
Discharge Problem:
Acute GI bleeding, Elevated INR, Hemorrhage of arteriovenous fistula
Prescriptions:
No Action
gabapentin 300 MG capsule
300 mg PO HS
polyethylene glycol 3350 17 GRAMS powder in packet
17 grams PO SUTUTHSA
sevelamer carbonate 800 MG tablet
800 mg PO MEALS
atorvastatin 20 MG tablet
20 mg PO HS
pantoprazole 40 MG tablet,delayed release (DR/EC)
40 mg PO DAILY
metoprolol succinate 25 mg tablet extended release 24 hr
25 mg PO MOWEFR@2200
metoprolol succinate 25 mg tablet extended release 24 hr
25 mg PO SUTUTHSA@0800,2000
budesonide 0.25 mg/2 mL Suspension For Nebulization
0.25 mg INHALATION R [id number] PRN (Reason: SOB/wheezing)
sennosides [senna] 8.6 mg Tablet
8.6 mg PO HS
midodrine 10 mg Tablet
10 mg PO Q6H
acetaminophen 325 MG tablet
650 mg PO Q4HPRN PRN (Reason: mild pain/temp>100F)
cetirizine 10 mg Tablet
10 mg PO DAILY
albuterol sulfate 90 mcg/actuation Hfa Aerosol Inhaler
2 puff INHALATION R Q4HPRN PRN (Reason: asthma)
bupropion HCl [Wellbutrin SR] 150 mg Tablet Sustained-Release 12 Hr
150 mg PO MOWEFR
fludrocortisone 0.1 mg tablet
0.1 mg PO DAILY Qty: 30 0RF
bisacodyl [Dulcolax (bisacodyl)] 10 mg Suppository
10 mg SD DAILYPRN PRN (Reason: constipation)
trazodone 150 mg Tablet
150 mg PO HS@0000
diphenhydramine HCl [Benadryl Allergy] 25 mg Tablet
25 mg PO Q6HPRN PRN (Reason: allergies)
lamotrigine [Lamictal] 200 mg Tablet
200 mg PO BID
lidocaine-prilocaine 2.5-2.5 % Cream
1 applic TOPICAL MOWEFR
warfarin 6 mg Tablet
13 mg PO QPM
Nephrocaps 1 mg Capsule
1 cap PO HS
fluticasone furoate 200 mcg/actuation Blister With Device
1 inh INHALATION R DAILY
Tirosint-Nessa 175 mcg/mL Solution
175 mcg PO DAILY
tramadol 50 mg tablet
50 mg PO [id number] PRN (Reason: moderate-severe pain)
diclofenac sodium [Voltaren] 1 % Gel
0 g TOPICAL DAILYPRN PRN (Reason: left thumb)
diclofenac sodium [Voltaren] 1 % Gel
0 g TOPICAL DAILY
Referrals:
William Bellamy I. DO [Family Provider, Internal Medicine]
Interventions
Interventions:
*Risk Screen - Suicide Last Done: 08/06/25 05:03
*General Assessment Last Done: 08/06/25 05:03
*Neglect/Abuse Screening Last Done: 08/06/25 05:03
*ED- Fall Risk Assessment Last Done: 08/06/25 05:03
*ED COVID-19 Vaccine History Last Done: 08/06/25 05:03
*ED Influenza Vaccine History Last Done: 08/06/25 05:03
YJ-Mtknab-Defksvfkts Assessment Last Done: 08/06/25 05:03
Discharge Date and Time
Print Language: BRAZILIAN
[2025-08-06 05:26] LABS: Hematocrit 22.7 % (39.0-52.0); Hemoglobin 7.3 g/dL (13.0-18.0); Mean Corp Hgb Conc. 32.2 g/dL (33.0-37.0); Mean Corpuscular Volume 90.1 fL (80.0-94.0); Nucleated Red Blood Cells % 0 % (-); Platelet Count 176 10^3/uL (130-400); Red Cell Dist. Width 15.5 % (11.5-14.5)
[2025-08-06 05:31] LABS: PT 55.9 Sec (11.4-14.6)
[2025-08-06 05:57] LABS: ALT (SGPT) 33 U/L (0-50); AST (SGOT) 36 U/L (17-59); Albumin 3.9 g/dl (3.5-5.0); Alkaline Phosphatase 129 U/L (38-126); Blood Urea Nitrogen 54 mg/dl (9-20); Calcium 8.4 mg/dl (8.4-10.2); Carbon Dioxide 26 mmol/L (22-30); Chloride 99 mmol/L (98-107); Estimated Creatinine Clearance 17 ml/min; Glucose 102 mg/dl (70-99); Potassium 4.1 mmol/L (3.5-5.1); Sodium 133 mmol/L (135-145); Total Protein 6.9 g/dl (6.3-8.2); eGFR 9.47
[2025-08-06 06:04] LABS: INR 6.52
--- NOTE | 2025-08-06 06:22 | HPS.HSE ---
Family Physician
-
Family Physician: William Bellamy
Chief Complaint
-
Bleeding at AV fistula site
History of Present Illness
This is a 49-year-old male with extensive past medical history presenting from [place] [facility] for concern of bleeding from AV fistula.
Patient has past medical history of end-stage renal disease on hemodialysis Tuesday, mechanical aortic valve replacement on anticoagulation with Coumadin, chronic hypoxic respiratory failure on 3 L home O2, JOVITA, CHF, chronic
hypotension on midodrine, type 2 diabetes, prior history of AV fistula malfunction and revision at the end the year now presenting with concern for bleeding from the AV fistula. While in the emergency department he had dark tarry stool that was
heme positive.
Further patient reports that he has been having dark red bowel movements since Tuesday. He reports they are soft and semiformed to diarrhea. He denies associated pain. He denies nausea. He has reported some dizziness. He notes palpitations.
Denies any chest pain. He denies vomiting. Patient reports that he has never had a colonoscopy.
Routine blood work from Tuesday morning showed INR of 7.6. Patient reports that he is on 18 mg of Coumadin. The transfer of work does not show his current Coumadin dose.
In the emergency department had a blood pressure of 83/57 which is similar to his prior baseline, he was tachycardic to 120. Respiratory rate was 20. Temperature was 98.7 and was satting 96% on 2 L. CBC notable for hemoglobin of 7.3 which is
around his recent baseline of around 7-8, INR was 6.5 here. Electrolytes were stable. BUN 54, creatinine 6.6
Medical History
Past Medical History
Past Medical History: Reports Other
Additional Past Medical History:
HFrEF
ESRD on HD
DM II
hyperlipidemia
atrial fibrillation
hypothyroidism
obstructive sleep apnea
GERD
Past Surgical History: Reports Other
Additional Past Surgical History:
mitral valve replacement
AV fistula
Social History
Tobacco: Non-smoker
Alcohol: Occasional
Drug: None
Living: [facility]
Employment: Disabled
Family History
Family History: Not pertinent
Allergies / Home Medications
Allergies reflects when Allergies were last updated in [facility].
Home Medications with original date entered in [facility]
Allergy/Medication List:
Allergies
Allergy/AdvReac Type Severity Reaction Status Date / Time
dalteparin,porcine Allergy Unknown Verified 12/14/24 14:53
enoxaparin Allergy Unknown, Verified 12/14/24 14:53
[facility] record
isosorbide Allergy Unknown, Verified 12/14/24 14:53
[facility] record
meperidine Allergy Unknown, Verified 12/14/24 14:53
[facility] record
piperacillin sodium Allergy Itching; Verified 12/14/24 14:53
[From Zosyn] Tolerated
AMOXICILLIN
shellfish derived Allergy ALLERGY-FISH Verified 12/14/24 14:53
EXCEPT TUNA
tazobactam sodium Allergy Itching Verified 12/14/24 14:53
[From Zosyn]
Home Medications
gabapentin 300 mg capsule 300 mg PO HS Pain 03/11/15
polyethylene glycol 3350 17 gram oral powder packet 17 grams PO SUTUTHSA constipation 02/23/17
atorvastatin 20 mg tablet 20 mg PO HS High cholesterol 10/04/18
sevelamer carbonate 800 mg tablet 800 mg PO MEALS Kidney Disease 10/04/18
levothyroxine 300 mcg tablet 300 mcg PO DAILY Thyroid 01/16/20
pantoprazole 40 mg tablet,delayed release 40 mg PO DAILY Gastrointestinal issue 01/17/20
metoprolol succinate 25 mg tablet,extended release 24 hr 25 mg PO MOWEFR@2200 Blood Pressure 02/13/23
metoprolol succinate 25 mg tablet,extended release 24 hr 25 mg PO SUTUTHSA@0800,2000 Blood Pressure 02/13/23
acetaminophen 325 mg tablet 650 mg PO Q4HPRN PRN mild pain/temp>100F 10/14/23
budesonide 0.25 mg/2 mL suspension for nebulization 0.25 mg inhalation R [id number] PRN SOB/wheezing 10/14/23
midodrine 10 mg tablet 10 mg PO Q6 Hold SBP >/= 150 10/14/23
sennosides 8.6 mg tablet (senna) 8.6 mg PO HS Constipation 10/14/23
tramadol 50 mg tablet 50 mg PO Q6HPRN PRN moderate pain 10/14/23
albuterol sulfate 90 mcg/actuation aerosol inhaler 2 puff inhalation R Q4HPRN PRN asthma 09/07/24
cetirizine 10 mg tablet 10 mg PO DAILY Allergies 09/07/24
fluticasone furoate 200 mcg/actuation blister powder for inhalation (Arnuity Ellipta) 1 inh inhalation R DAILY Lung/Breathing Issues 09/07/24
lamotrigine 150 mg tablet (Lamictal) 150 mg PO BID Neurological Condition 09/07/24
melatonin 3 mg tablet 3 mg PO HS 09/07/24
bupropion HCl 150 mg tablet,12 hr sustained-release (Wellbutrin SR) 150 mg PO MOWEFR depression/anxiety 09/10/24
fludrocortisone 0.1 mg tablet 0.1 mg PO DAILY Blood pressure #30 tabs 09/14/24
benzonatate 100 mg capsule 100 mg PO Q8H PRN cough 12/14/24
bisacodyl 10 mg rectal suppository (Dulcolax (bisacodyl)) 10 mg WA DAILY PRN constipation 12/14/24
diphenhydramine HCl 25 mg tablet (Benadryl Allergy) 25 mg PO Q6H PRN allergies 12/14/24
enoxaparin 150 mg/mL subcutaneous syringe (Lovenox) 150 mg SC DAILY@1800 12/14/24
liothyronine 50 mcg tablet (Cytomel) 75 mcg PO DAILY 12/14/24
trazodone 150 mg tablet 150 mg PO HS 12/14/24
vitamin B complex and vitamin C no.20-folic acid 1 mg capsule 1 cap PO HS 12/14/24
Review of Systems
-
History Source: Patient
Constitutional: Reports No Symptoms
EENT: Reports No Symptoms
Respiratory: Reports No Symptoms
Cardiac: Reports No Symptoms
Abdomen/GI: Reports No Symptoms
: Reports No Symptoms
Musculoskeletal: Reports No Symptoms
Skin: Reports Other (bleeding on left arm AV fistula)
Neurological: Reports No Symptoms
Endocrine: Reports No Symptoms
Hematologic/Lymphatic: Reports No Symptoms
Psych: Reports No Symptoms
Physical Exam
Vital Signs
Vital Signs
Temp Pulse Resp BP Pulse Ox
98.7 F 126 34 83/57 96
08/06/25 04:53 08/06/25 06:00 08/06/25 06:00 08/06/25 06:00 08/06/25 05:48
Physical Exam
General: Well Developed, Well Nourished, No Apparent Distress, Comfortable, Conversant and Obese
HEENT: NormoCephalic, Moist mucous membranes, Atraumatic, [place] Conjunctivae, Nose Appears Normal, Ears Appear Normal and Oxygen
Respiratory: Clear, Non Labored Respirations and Decreased Breath Sounds
Cardiac: S1/S2 and Tachycardia; No Murmur, Rub or Gallop
Breast: Deferred by me
GI: Soft, Non Tender, Non Distended and Normal Bowel Sounds; No Organomegaly
Rectal: Deferred by Provider
Genito-urinary: Deferred by me
Musculoskeletal: No Clubbing, No Cyanosis and No Edema
Skin: Warm and Other (Left upper extremity AV fistula, no bleeding, good thrill and bruit.); No Rash
Neuro: Awake, Alert, AO x 3 and Nonfocal/grossly intact
Psych: Calm and Intact Judgment/Insight
Laboratory Results
-
08/06/25 05:13
08/06/25 05:13
Laboratory Results
PT 55.9 Sec (11.4-14.6) H 08/06/25 05:13
INR 6.52 H* 08/06/25 05:13
Total Bilirubin 0.7 mg/dl (0.2-1.3) 08/06/25 05:13
AST 36 U/L (17-59) 08/06/25 05:13
ALT 33 U/L (0-50) 08/06/25 05:13
Alkaline Phosphatase 129 U/L (38-126) H 08/06/25 05:13
Data Reviewed
-
Lab Data: Labs Reviewed by me
Old Records: Reviewed
Impression/Plan
-
IMPRESSION:
49-year-old with complex past medical history including end-stage renal disease on hemodialysis via left upper extremity AV fistula, chronic hypoxic respiratory failure on home O2, obstructive sleep apnea, congestive heart failure, chronic anemia,
Findings atrial fibrillation, mechanical aortic valve replacement on anticoagulation with warfarin who presents to the emergency department with complaints of bleeding from fistula site after hemodialysis in the setting of supratherapeutic INR to
7.6 on Tuesday, also reports approximately 3 days of bloody bowel movements. Dark tarry stools noted in the ED which was heme positive. Patient is coagulopathic with a supratherapeutic INR, hemoglobin remains relatively stable at 7.3. His blood
pressure is at his baseline in the 80s over 50s with maps of 64-70. He is in no atrial fibrillation and rapid to the 120s but otherwise has no discomfort. Hemostasis achieved from bleeding AV fistula
PLAN:
1. Supratherapeutic INR -patient is on clonidine and reports taking 18 mg. However this cannot be confirmed. Last dose reported here is 30 mg every afternoon. No known interfering medications.
- Admit to telemetry for now
- Hold Coumadin
- Given vitamin K 10mg po
- HD stable, Hgb similar to slightly reduced, held off on Kcentra
- goal INR 2.5 - 3
- repeat INR in am
2. Bleeding AV fistula - Hemostasis acheived
- vascular consulted, fistula u/s study
- serial examinations
3. GI bleed/Anemia - Dark tarry stool, heme + in ED. He self reported blood bm (dark red blood) since tuesday. H/O GI bleed s/p EGD/[place] in 2020 showing no active bleed, ulcers, diverticuli or mass. Polyp treated. Non-bleeding internal
hemorrhoids noted. Suspect upper GI bleed from coagulopathy but cannot rule out LGIB. No Fresh blood on exam
- reversal of coagulation as above
- no thinners
- PPI IV bid
- clear liquid diet for now
- GI consultation
4. Atrial fibrillation - permanent afib on coumadin. Not currently on rate agent.
- holding coumadin for supratherapeutic INR/bleeding
- prn metoprolol for uncontrolled hr > 130, if SBP > 90 or map > 65
- transfusion of 1 unit of blood now
5. End-stage renal disease - HD on tuesday. labs ok
- vascular study as above
- clear iet for now
- nephrology consult
6. Chronic Hypoxia - JOVITA, CHF (no acute exacerbation)
- stable on 3 L O2. No CPAP.
7. Chronic orthostatic hypotension
- continue midodrine/fludrocortisone
8. Sz d/o
- lamictal continued
9 Hypothyroid
- on levothyroxine
10 Diabetes
- diet controlled, sliding scale insulin
DVT PPX - SCD
Code status - Full code
[2025-08-06] MEDS: PROTONIX IV 40 MG IV ×3 (06:29→21:08)
[2025-08-06] MEDS: MEPHYTON 5 MG PO (06:29)
[2025-08-06] MEDS: TYLENOL 1000 MG PO (06:40)
--- NOTE | 2025-08-06 07:10 | W.PN.HOSP.TC ---
Documented by User: James Perez MD 08/06/25 07:10
Subjective/Interval History
-
Date of Service: August 06, 2025
Objective Data
-
Labs:
Laboratory Results
08/06/25
05:13
WBC 9.0
Hgb 7.3 L
Hct 22.7 L
Plt Count 176
PT 55.9 H
INR 6.52 H*
Sodium 133 L
Potassium 4.1
Chloride 99
Carbon Dioxide 26
BUN 54 H
Creatinine 6.6 H*
Glucose 102 H
Calcium 8.4
Total Bilirubin 0.7
AST 36
ALT 33
Alkaline Phosphatase 129 H
Vital Signs:
Vital Signs
Temp Pulse Resp BP Pulse Ox
98.7 F 110 16 76/52 100
08/06/25 04:53 08/06/25 06:45 08/06/25 06:45 08/06/25 06:43 08/06/25 06:43

Documented by User: Herlinda Wilkes MD 08/06/25 15:41
Today's Communication/Plan
-
see plan
Assessment / Plan
Assessment / Plan
49-year-old with complex past medical history including end-stage renal disease on hemodialysis via left upper extremity AV fistula, chronic hypoxic respiratory failure on home O2, obstructive sleep apnea, congestive heart failure, chronic anemia,
Findings atrial fibrillation, mechanical mitral valve replacement on anticoagulation with warfarin who presents to the emergency department with complaints of bleeding from fistula site after hemodialysis in the setting of supratherapeutic INR to
7.6 on Tuesday, also reports approximately 3 days of bloody bowel movements. He was found to be hypotensive, in rapid afib with RVR.
PLAN:
1. Supratherapeutic INR -patient is on coumadin and reports taking 18 mg. However this cannot be confirmed. Last dose reported here is 30 mg every afternoon. No known interfering medications.
- Admit to telemetry for now
- Hold Coumadin
- Given vitamin K 5 mg po
- HD stable, Hgb similar to slightly reduced, held off on Kcentra
- goal INR 2.5 - 3
- repeat INR this evening
2. Bleeding AV fistula - Hemostasis acheived
- vascular consulted, fistula u/s study
- serial examinations
3. GI bleed/Anemia - Dark tarry stool
-H/O GI bleed s/p EGD/[place] in 2020 showing no active bleed, ulcers, diverticuli or mass. Polyp treated. Non-bleeding internal hemorrhoids noted.
- reversal of coagulation as above
- PPI IV bid
- clear liquid diet for now
- GI consultation
4. Atrial fibrillation - permanent afib on coumadin. Not currently on rate agent.
- holding coumadin for supratherapeutic INR/bleeding
- prn metoprolol for uncontrolled hr > 130, if SBP > 90 or map > 65
- transfusion of 1 unit of blood now
Mechanical Mitral Valve
-goal INR 2.5-3
-Cardiology consult to help guide bridging therapy - start heparin gtt if INR < 2 and no significant bleeding
5. End-stage renal disease - HD on tuesday. labs ok
- vascular study as above
- clear iet for now
- nephrology consult
6. Chronic Hypoxia - JOVITA, CHF (no acute exacerbation)
- stable on 3 L O2. No CPAP.
7. Chronic orthostatic hypotension
- continue midodrine/fludrocortisone
8. Sz d/o
- lamictal continued
9 Hypothyroid
- on levothyroxine
10 Diabetes
- diet controlled, sliding scale insulin
DVT PPX - SCD
Code status - Full code
Anticipated Discharge: > 48 hours
Subjective/Interval History
-
Date of Service: August 06, 2025
feeling well
reports continued bloody bM
Review of Systems
-
History Source: Patient
All other systems: Reviewed and negative
Physical Exam
-
General: Well Developed and No Apparent Distress
HEENT: PERRLA
Respiratory: Clear to Auscultation
Cardiac: Regular Rhythm and S1/S2
GI: Soft, Nontender and Nondistended
Musculoskeletal: No Edema
Neuro: Awake, Alert and Oriented
Psych: Calm
Data Reviewed
-
Diagnostic Radiology: Report Reviewed by me
Labs: Labs Reviewed by me
[2025-08-06 09:57] LABS: Glucose - Point of Care 112 mg/dl (70-99)
--- NOTE | 2025-08-06 09:59 | CON.VAS ---
Consultation
Consultation Request
Date/Time Consultation Performed: 08/06/25 1000
Requesting Provider: Hospitalist
Performing Provider: Stacey Bella, CARLITO-C for Nikhil Fang III, MD
Reason for Consultation: Prolonged bleeding from left upper extremity AVG with elevated INR
Medical History
-
Chief Complaint: Prolonged bleeding from left upper extremity AVG with elevated INR
History of Present Illness:
This is a 49-year-old male with significant past medical history of ESRD on HD, IN, CVA, COPD on home O2, Valve replacement, afib on Coumadin, who presented to [facility] from nursing facility for prolonged bleeding following HD
at left upper extremity AV graft. ED evaluation significant for elevated INR of 6.5 and reports of loose dark red frequent bowel movement for several days. Admitted for management of suspected GI bleed and prolonged bleeding at AV graft, although
bleeding from AV graft was controlled in ED setting. H&P notes that routine blood work this past Tuesday showed an INR of 7.6. Vascular surgery has been consulted for AV graft evaluation. Patient is known to our surgical group as Dr. Phoenix Mayer has
done prior work on his AV fistula including revision, please see surgical history below. He notes that he has been receiving HD without difficulty, last session yesterday. He is on a Tuesday, Tuesday, and Tuesday schedule.
Past vascular surgical history:
08/24/16- Left upper extremity fistulogram with central venogram Phoenix Mayer MD
08/29/16- Superficialization of left upper extremity radiocephalic arteriovenous fistula Phoenix Mayer MD
02/24/23- Left upper extremity fistulogram, central venogram, balloon angioplasty of perianastomotic stenosis Phoenix Mayer MD
09/13/24- Left upper extremity fistulogram and central venogram, balloon angioplasty of possible venous outflow stenosis/women in the anticubital fossa Phoenix Mayer MD
12/20/24- Revision of left upper extremity AV access with interposition left forearm AV graft tunneled in clean planes with [employer] AcuSeal 7mm early access graft. Phoenix Mayer M.D.
Past Medical History
Past Medical History: GERD, Hypothyroidism and Other (ESRD on HD, IN, CVA, COPD on home O2, Valve replacement, afib on Coumadin, hyperlipidemia, obstructive sleep apnea)
Past Surgical History: Cardiac (Mitral valve replacement)
Social History
Tobacco: Non-Smoker
Alcohol: Occasional
Drug: None
Living: [facility]
Allergies / Home Medications
Allergy/AdvReac Type Severity Reaction Status Date / Time
dalteparin,porcine Allergy Unknown Verified 05/15/25 16:50
enoxaparin Allergy Unknown, Verified 05/15/25 16:50
[facility] record
isosorbide Allergy Unknown, Verified 05/15/25 16:50
[facility] record
meperidine Allergy Unknown, Verified 05/15/25 16:50
[facility] record
piperacillin sodium (From Allergy Itching; Verified 05/15/25 16:50
Zosyn) Tolerated
AMOXICILLIN
shellfish derived Allergy ALLERGY-FISH Verified 05/15/25 16:50
EXCEPT TUNA
tazobactam sodium (From Allergy Itching Verified 05/15/25 16:50
Zosyn)
�Medication �Instructions �Recorded �Confirmed �Type
gabapentin 300 mg capsule 300 mg PO HS Pain 03/11/15 08/06/25 History
polyethylene glycol 3350 17 gram 17 grams PO SUTUTHSA constipation 02/23/17 08/06/25 History
oral powder packet
atorvastatin 20 mg tablet 20 mg PO HS High cholesterol 10/04/18 08/06/25 History
sevelamer carbonate 800 mg tablet 800 mg PO MEALS Kidney Disease 10/04/18 08/06/25 History
pantoprazole 40 mg tablet,delayed 40 mg PO DAILY Gastrointestinal 01/17/20 08/06/25 History
release issue
acetaminophen 325 mg tablet 650 mg PO Q4HPRN PRN mild 10/14/23 08/06/25 History
pain/temp>100F
budesonide 0.25 mg/2 mL suspension 0.25 mg inhalation R [id number] PRN 10/14/23 08/06/25 History
for nebulization SOB/wheezing
midodrine 10 mg tablet 10 mg PO Q6H Hold SBP >/= 150 10/14/23 08/06/25 History
sennosides 8.6 mg tablet (senna) 8.6 mg PO HS Constipation 10/14/23 08/06/25 History
albuterol sulfate 90 mcg/actuation 2 puff inhalation R Q4HPRN PRN 09/07/24 08/06/25 History
aerosol inhaler asthma
cetirizine 10 mg tablet 10 mg PO DAILY Allergies 09/07/24 08/06/25 History
bupropion HCl 150 mg tablet,12 hr 150 mg PO MOWEFR depression/anxiety 09/10/24 08/06/25 History
sustained-release (Wellbutrin SR)
fludrocortisone 0.1 mg tablet 0.1 mg PO DAILY Blood pressure #30 09/14/24 08/06/25 Rx
tabs
bisacodyl 10 mg rectal suppository 10 mg MS DAILYPRN PRN constipation 12/14/24 08/06/25 History
(Dulcolax (bisacodyl))
diphenhydramine HCl 25 mg tablet 25 mg PO Q6HPRN PRN allergies 12/14/24 08/06/25 History
(Benadryl Allergy)
fluticasone furoate 200 1 inh inhalation R DAILY 05/15/25 08/06/25 History
mcg/actuation blister powder for
inhalation
lamotrigine 200 mg tablet 200 mg PO BID 05/15/25 08/06/25 History
(Lamictal)
levothyroxine 175 mcg/mL oral 210 mcg PO DAILY 05/15/25 08/06/25 History
solution (Tirosint-Nessa)
lidocaine-prilocaine 2.5 %-2.5 % 1 applic topical MOWEFR apply to L 05/15/25 08/06/25 History
topical cream arm fistula
tramadol 50 mg tablet 50 mg PO [id number] PRN 05/15/25 08/06/25 History
moderate-severe pain
vitamin B complex and vitamin C 1 cap PO HS 05/15/25 08/06/25 History
no.20-folic acid 1 mg capsule
(Renal Caps)
trazodone 100 mg tablet 200 mg PO HS@0000 08/06/25 08/06/25 History
Review of Systems
-
History Source: Patient
Constitutional: Reports No Symptoms
EENT: Reports No Symptoms
Respiratory: Reports No Symptoms
Cardiac: Reports No Symptoms
Vascular: Reports Other (Scant bleeding from left upper extremity AV graft, now controlled)
Abdomen/GI: Reports No Symptoms
: Reports No Symptoms
Musculoskeletal: Reports No Symptoms
Skin: Reports No Symptoms
Neurological: Reports No Symptoms
Endocrine: Reports No Symptoms
Physical Exam
Vital Signs
Temp Pulse Resp BP Pulse Ox
98.4 F 129 18 96/60 99
08/06/25 09:12 08/06/25 09:12 08/06/25 09:12 08/06/25 09:12 08/06/25 09:12
Lab Results
08/06/25 05:13
Physical Exam
General: No Apparent Distress
HEENT: Normocephalic, Anicteric and Atraumatic
Respiratory: Non Labored Respirations
Cardiac: Negative JVD
GI: Soft, Non Tender and Non Distended
Musculoskeletal: No Edema
Skin: Warm and Other (Left upper extremity AV graft with upper and distal dressing in place dry and intact, dressings removed scant pinhole puncture noted at distal end of AV graft that had scant ooze following removal of pressure dressing, no other
area of bleeding appreciated, palpable thrill, +1 radial pulse)
Neuro: Awake and Alert
Assessment / Plan
-
Assessment: 49-year-old male with elevated INR in setting of Coumadin administration for mechanical valve with left lower extremity AV graft prolonged bleeding, currently controlled.
Plan:
Hemodialysis graft ultrasound results evaluated, graft patent with no significant elevation of peak systolic velocity to suggest significant stenosis, suspect prolonged bleeding as a result of elevated INR. Pressure dressing to small pinhole area
of scant use reapplied. Dressing remained clean, dry, and intact. No evidence of further bleeding. Left hand remained warm, with palpable left radial pulse. Would continue to observe no recommendation of surgical intervention at this time.
I performed this shared service with the attending. I evaluated the patient [id number] and have entered clinical documentation as shown in the encounter note. I performed the following component(s): history and physical exam. Note that medical
decision making is not final until attested by vascular attending. Plan reviewed with on-call physician Dr. Nikhil Fang III, who agreed with above plan.
--- NOTE | 2025-08-06 10:13 | VATNOTE ---
MD order for two large bore Ivs. Attempted to place second IV, unsuccessful x2 attempts. Other VAT RN to attempt.
--- NOTE | 2025-08-06 10:14 | PTCARENOTE ---
Patient Arrived to unit from ED around 0915 this AM. x3 staff to pull patient over from stretcher to bed. Patient reports pain in L forearm at this time. Pain meds to be given when medications are verified. See MAR. Upon assessment, he is AAox3.
Blood transfusing upon arrival. Patient appears well, he is afebrile and shows no s/s of a transfusion reaction at this time.
--- NOTE | 2025-08-06 10:37 | CON.GI ---
Documented by User: Fran Pearson MD, Resident 08/06/25 13:15
Consultation
-
Date/Time Consultation Requested: 08/06/2025
Date/Time Consultation Performed: 08/06/2025
Requesting Provider: Dr. Duran
Performing Provider: Dr. Smiley
Reason for Consultation: GI bleed
Medical History
Chief Complaint / HPI
Chief Complaint: Active bleed
History of Present Illness:
Mr. Amin is a 49-year-old male with past medical history of chronic hypoxemic respiratory failure on 3 L HFrEF ESRD on hemodialysis MWF AV fistula A-fib hypothyroidism hyperlipidemia diabetes JOVITA aortic valve replacement on anticoagulation with
Coumadin presenting from detention for concern of bleeding from AV fistula prior history of AV fistula malfunction and revision at the end the year. Vascular surgery was consulted and they tamponaded the bleeding from the AV fistula site. While
in the emergency department he had dark tarry stool that was heme positive. Patient reports that he has been having dark red bowel movements since Tuesday. He reports they are soft and semiformed to diarrhea. He denies associated pain. He denies
nausea vomiting fevers abdominal pain or changes in bowel habits. He has reported some dizziness. He notes palpitations. Routine blood work from Tuesday morning showed INR of 7.6. Patient reports that he is on 18 mg of Coumadin. He reported a
recent dose increase about 4 days ago. He does not know why there was a recent dose increase at the detention. EGD/[place] in 2020 for melena showing no active bleed, ulcers, diverticuli or mass, Non-bleeding internal hemorrhoids noted.
Past Medical History
Past Medical History: Arrhythmias (Atrial fibrillation), CHF (HFrEF), GERD, Hypercholesterolemia, Hypothyroidism, NIDDM, Renal Failure (ESRD on HD MWF) and Other (JOVITA, chronic hypoxemic respiratory failure on 3 L)
Past Surgical History: Cardiac (Aortic valve replacement on Coumadin) and Other (Aortic valve replacement, AV fistula)
Social History
Tobacco: Non-Smoker
Alcohol: Occasional
Drug: None
Living: Prison
Employment: Disabled
Family History
Family History: Reviewed & Not Pertinent
Allergies / Home Medications
Allergy/AdvReac Type Severity Reaction Status Date / Time
dalteparin,porcine Allergy Unknown Verified 05/15/25 16:50
enoxaparin Allergy Unknown, Verified 05/15/25 16:50
[facility] record
isosorbide Allergy Unknown, Verified 05/15/25 16:50
[facility] record
meperidine Allergy Unknown, Verified 05/15/25 16:50
[facility] record
piperacillin sodium (From Allergy Itching; Verified 05/15/25 16:50
Zosyn) Tolerated
AMOXICILLIN
shellfish derived Allergy ALLERGY-FISH Verified 05/15/25 16:50
EXCEPT TUNA
tazobactam sodium (From Allergy Itching Verified 05/15/25 16:50
Zosyn)
�Medication �Instructions �Recorded
gabapentin 300 mg capsule 300 mg PO HS Pain 03/11/15
polyethylene glycol 3350 17 gram 17 grams PO SUTUTHSA constipation 02/23/17
oral powder packet
atorvastatin 20 mg tablet 20 mg PO HS High cholesterol 10/04/18
sevelamer carbonate 800 mg tablet 800 mg PO MEALS Kidney Disease 10/04/18
pantoprazole 40 mg tablet,delayed 40 mg PO DAILY Gastrointestinal 01/17/20
release issue
acetaminophen 325 mg tablet 650 mg PO Q4HPRN PRN mild 10/14/23
pain/temp>100F
budesonide 0.25 mg/2 mL suspension 0.25 mg inhalation R [id number] PRN 10/14/23
for nebulization SOB/wheezing
midodrine 10 mg tablet 10 mg PO Q6H Hold SBP >/= 150 10/14/23
sennosides 8.6 mg tablet (senna) 8.6 mg PO HS Constipation 10/14/23
albuterol sulfate 90 mcg/actuation 2 puff inhalation R Q4HPRN PRN 09/07/24
aerosol inhaler asthma
cetirizine 10 mg tablet 10 mg PO DAILY Allergies 09/07/24
bupropion HCl 150 mg tablet,12 hr 150 mg PO MOWEFR depression/anxiety 09/10/24
sustained-release (Wellbutrin SR)
fludrocortisone 0.1 mg tablet 0.1 mg PO DAILY Blood pressure #30 09/14/24
tabs
bisacodyl 10 mg rectal suppository 10 mg WA DAILYPRN PRN constipation 12/14/24
(Dulcolax (bisacodyl))
diphenhydramine HCl 25 mg tablet 25 mg PO Q6HPRN PRN allergies 12/14/24
(Benadryl Allergy)
fluticasone furoate 200 1 inh inhalation R DAILY 05/15/25
mcg/actuation blister powder for
inhalation
lamotrigine 200 mg tablet 200 mg PO BID 05/15/25
(Lamictal)
levothyroxine 175 mcg/mL oral 210 mcg PO DAILY 05/15/25
solution (Tirosint-Nessa)
lidocaine-prilocaine 2.5 %-2.5 % 1 applic topical MOWEFR apply to L 05/15/25
topical cream arm fistula
tramadol 50 mg tablet 50 mg PO [id number] PRN 05/15/25
moderate-severe pain
vitamin B complex and vitamin C 1 cap PO HS 05/15/25
no.20-folic acid 1 mg capsule
(Renal Caps)
trazodone 100 mg tablet 200 mg PO HS@0000 08/06/25
Review of Systems
-
History Source: Patient
Constitutional: Reports No Symptoms; Denies Fever or Weight Loss
EENT: Reports No Symptoms; Denies Sore Throat or Runny Nose
Respiratory: Reports No Symptoms; Denies Cough or Trouble Breathing
Cardiac: Reports No Symptoms; Denies Chest Pain or Palpitations
: Reports No Symptoms; Denies Dysuria
Musculoskeletal: Reports No Symptoms; Denies Joint Pain
Neurological: Reports Dizzy
Vital Signs
Temp Pulse Resp BP Pulse Ox
97.6 F 95 19 105/55 99
08/06/25 10:13 08/06/25 10:13 08/06/25 10:13 08/06/25 10:13 08/06/25 09:12
Physical Exam
Exam
General: Well Developed, Well Nourished and No Apparent Distress
HEENT: Normocephalic and Anicteric
Respiratory: Clear and Non Labored Respirations; Negative Wheezes
Cardiac: S1/S2 and Regular Rhythm
GI: Soft, Non Tender, Non Distended and Normal Bowel Sounds
Skin: Warm and Dry
Neuro: Awake, Alert and Oriented
Results
WBC 9.0 10^3/uL (4.8-10.8) 08/06/25 05:13
Hgb 7.3 g/dL (13.0-18.0) L 08/06/25 05:13
Hct 22.7 % (39.0-52.0) L 08/06/25 05:13
MCV 90.1 fL (80.0-94.0) 08/06/25 05:13
Plt Count 176 10^3/uL (130-400) 08/06/25 05:13
Absolute Neuts (auto) 7.2 10^3/uL (1.4-6.5) H 08/06/25 05:13
PT 55.9 Sec (11.4-14.6) H 08/06/25 05:13
INR 6.52 H* 08/06/25 05:13
Sodium 133 mmol/L (135-145) L 08/06/25 05:13
Potassium 4.1 mmol/L (3.5-5.1) 08/06/25 05:13
Chloride 99 mmol/L (98-107) 08/06/25 05:13
Carbon Dioxide 26 mmol/L (22-30) 08/06/25 05:13
BUN 54 mg/dl (9-20) H 08/06/25 05:13
Creatinine 6.6 mg/dL (0.7-1.3) H* 08/06/25 05:13
Calcium 8.4 mg/dl (8.4-10.2) 08/06/25 05:13
Total Bilirubin 0.7 mg/dl (0.2-1.3) 08/06/25 05:13
AST 36 U/L (17-59) 08/06/25 05:13
ALT 33 U/L (0-50) 08/06/25 05:13
Alkaline Phosphatase 129 U/L (38-126) H 08/06/25 05:13
Diagnostic Image Results:
Prior GI Procedures:
EGD:
10/22/2021: Indication melena
Impression: - Normal esophagus.
- Normal stomach.
- Normal examined duodenum.
- No specimens collected.
02/2017
EGD revealed moderate amount of bile in stomach.
Erythema antrum and body
Scar in body of stomach from prior PEG tube
Mild distal esophagitis
Small hernia
Colonoscopy:
10/23/2021: Indication melena
Impression: - Preparation of the colon was poor - Stool in the
entire examined colon. No evidence of active or recent
bleeding seen
- One 2 mm polyp at the ileocecal valve, removed with
a jumbo cold forceps. Resected and retrieved.
- One 8 mm polyp in the descending colon, removed with
a cold snare. Resected and retrieved. Clip (MR
conditional) was placed.
- Non-bleeding internal hemorrhoids.
Ileocecal valve polyp, inflammatory pseudopolyp
Descending colon Polyp, tubular adenoma
02/2017
Performed for melena
Findings: Fair prep, 6-7 mm shallow, clean-based ulcer in distal cecum (bx), Decreased vascular markings in right colon. Path revealed minimal active colitis as focal rare mild cryptitis in a background showing moderate to severe evidence of
chronicity has crypt atrophy, branching, irregularity and surface serration. No granulomata, no pseudomembranes
10/2016
Performed for rectal bleeding
Poor prep. Mucosal ulceration biopsied, normal mucosa in rectum, sigmoid, descending colon, transverse colon, ascending colon. Path from ileocecal valve biopsies revealed mild, chronic, nonspecific colitis, mildly active focal crypt abscesses,
cryptitis, and single lymphoid aggregate. No granulomas, dysplasia, malignancy
Assessment / Plan
-
This is a 49-year-old male with significant past medical history of ESRD on HD, CVA, COPD on home O2, Valve replacement, afib on Coumadin, who presented to [facility] from nursing facility for prolonged bleeding following HD at left upper
extremity AV graft with melena on presentation in the setting of supratherapeutic anticoagulation.
#GI bleed
#Acute blood loss anemia
dark brown heme+ stool in ED c/f GI bleed in the setting of supratherapeutic anticoagulation
upper GI source versus lower GI source
-History of mitral valve replacement- on warfarin
-Atrial fibrillation
Continue PPI
Follow H&H closely
OK for clears today no red liquids
Hold warfarin, restart when INR is within range
Transfusions per primary team
He will likely also need EGD/colonoscopy as outpatient given his history, or inpatient if blood loss continues
Trend CMP, CBC, coags
This is a preliminary note, defer to attending's note for recommendations.
-
-
Thank you for consultation and allowing me to participate in the patient's care. Please call the classroom monitor GI physician during the after hours with any questions or concerns.

Documented by User: Carine Smiley MD 08/06/25 16:51
Medical History
Past Medical History
Past Surgical History: Cardiac (Mitral valve replacement on Coumadin) and Other (MVR, AV fistula)
[2025-08-06] MEDS: ULTRAM 25 MG PO ×2 (11:09→23:52)
[2025-08-06 12:41] LABS: Hematocrit 23.9 % (39.0-52.0); Hemoglobin 8.4 g/dL (13.0-18.0)
--- NOTE | 2025-08-06 12:44 | W.CON.NEPH ---
Consultation
-
Date/Time Consultation Requested: 08/06/25 9am
Date/Time Consultation Performed: 08/06/25 11am
Requesting Provider: Dr. Wilkes
Performing Provider: Dr. Brand
Reason for Consultation: ESRD
Medical History
-
Chief Complaint: ESRD
History of Present Illness:
The patient is a 48-year-old male with a past medical history of end-stage renal disease who dialyzes at [facility] every Tuesday and Tuesday. He has chronic respiratory failure and is maintained on bronchodilator therapy and
chronic oxygen support. He has a history of chronic hypotension and is maintained on midodrine. Ultrafiltration is difficult on dialysis due to the blood pressure. The patient has a history of a mechanical mitral valve replacement and is
maintained on chronic anticoagulation therapy in addition he also takes anticoagulation therapy for his chronic atrial fibrillation. He is on Coumadin. He presented to the emergency room with prolonged bleeding after dialysis from the AV graft.
He was noted to have a elevated INR greater than 6. He reports that it had recently also been greater than 7. He also noted that he has been having dark stools recently as well. Hemoglobin was 7.3 in the emergency room.
Past Medical History
1. End-stage renal disease.
2. Atrial fibrillation.
3. Obstructive sleep apnea.
4. Chronic hypotension onmidodrine support
5. Cirrhosis.
6. Chronic respiratory failure on 3 L nasal cannula.
7. History of mitral valve endocarditis with subsequent mitral
valve repair.
8. History of hypothyroidism.
9. Cecal ulcer.
10.Anemia.
11.Obesity.
12.Depression.
13.Left upper extremity AV fistula.
14.AICD explant.
15 history of rectus abdominal sheath hematoma
Social History
Tobacco: Smoker
Alcohol: None
Living: [facility]
Family History
no CKD
Family History: Not Pertinent
Allergies / Home Medications
Allergy/AdvReac Type Severity Reaction Status Date / Time
dalteparin,porcine Allergy Unknown Verified 05/15/25 16:50
enoxaparin Allergy Unknown, Verified 05/15/25 16:50
[facility] record
isosorbide Allergy Unknown, Verified 05/15/25 16:50
[facility] record
meperidine Allergy Unknown, Verified 05/15/25 16:50
[facility] record
piperacillin sodium (From Allergy Itching; Verified 05/15/25 16:50
Zosyn) Tolerated
AMOXICILLIN
shellfish derived Allergy ALLERGY-FISH Verified 05/15/25 16:50
EXCEPT TUNA
tazobactam sodium (From Allergy Itching Verified 05/15/25 16:50
Zosyn)
�Medication �Instructions �Recorded �Confirmed �Type
gabapentin 300 mg capsule 300 mg PO HS Pain 03/11/15 08/06/25 History
polyethylene glycol 3350 17 gram 17 grams PO SUTUTHSA constipation 02/23/17 08/06/25 History
oral powder packet
atorvastatin 20 mg tablet 20 mg PO HS High cholesterol 10/04/18 08/06/25 History
sevelamer carbonate 800 mg tablet 800 mg PO MEALS Kidney Disease 10/04/18 08/06/25 History
pantoprazole 40 mg tablet,delayed 40 mg PO DAILY Gastrointestinal 01/17/20 08/06/25 History
release issue
acetaminophen 325 mg tablet 650 mg PO Q4HPRN PRN mild 10/14/23 08/06/25 History
pain/temp>100F
budesonide 0.25 mg/2 mL suspension 0.25 mg inhalation R [id number] PRN 10/14/23 08/06/25 History
for nebulization SOB/wheezing
midodrine 10 mg tablet 10 mg PO Q6H Hold SBP >/= 150 10/14/23 08/06/25 History
sennosides 8.6 mg tablet (senna) 8.6 mg PO HS Constipation 10/14/23 08/06/25 History
albuterol sulfate 90 mcg/actuation 2 puff inhalation R Q4HPRN PRN 09/07/24 08/06/25 History
aerosol inhaler asthma
cetirizine 10 mg tablet 10 mg PO DAILY Allergies 09/07/24 08/06/25 History
bupropion HCl 150 mg tablet,12 hr 150 mg PO MOWEFR depression/anxiety 09/10/24 08/06/25 History
sustained-release (Wellbutrin SR)
fludrocortisone 0.1 mg tablet 0.1 mg PO DAILY Blood pressure #30 09/14/24 08/06/25 Rx
tabs
bisacodyl 10 mg rectal suppository 10 mg TN DAILYPRN PRN constipation 12/14/24 08/06/25 History
(Dulcolax (bisacodyl))
diphenhydramine HCl 25 mg tablet 25 mg PO Q6HPRN PRN allergies 12/14/24 08/06/25 History
(Benadryl Allergy)
fluticasone furoate 200 1 inh inhalation R DAILY 05/15/25 08/06/25 History
mcg/actuation blister powder for
inhalation
lamotrigine 200 mg tablet 200 mg PO BID 05/15/25 08/06/25 History
(Lamictal)
levothyroxine 175 mcg/mL oral 210 mcg PO DAILY 05/15/25 08/06/25 History
solution (Tirosint-Nessa)
lidocaine-prilocaine 2.5 %-2.5 % 1 applic topical MOWEFR apply to L 05/15/25 08/06/25 History
topical cream arm fistula
tramadol 50 mg tablet 50 mg PO [id number] PRN 05/15/25 08/06/25 History
moderate-severe pain
vitamin B complex and vitamin C 1 cap PO HS 05/15/25 08/06/25 History
no.20-folic acid 1 mg capsule
(Renal Caps)
trazodone 100 mg tablet 200 mg PO HS@0000 08/06/25 08/06/25 History
Review of Systems
-
Dark stools
All other systems: Negative unless noted
Physical Exam
Vital Signs
Vital Signs
Temp Pulse Resp BP Pulse Ox
98.4 F 100 17 98/50 100
08/06/25 10:50 08/06/25 10:50 08/06/25 10:50 08/06/25 10:50 08/06/25 10:50
Lab Results
WBC 9.0 10^3/uL (4.8-10.8) 08/06/25 05:13
RBC 2.52 10^6/uL (4.70-6.10) L 08/06/25 05:13
Hct 23.9 % (39.0-52.0) L 08/06/25 12:34
Plt Count 176 10^3/uL (130-400) 08/06/25 05:13
Sodium 133 mmol/L (135-145) L 08/06/25 05:13
Potassium 4.1 mmol/L (3.5-5.1) 08/06/25 05:13
Chloride 99 mmol/L (98-107) 08/06/25 05:13
Carbon Dioxide 26 mmol/L (22-30) 08/06/25 05:13
BUN 54 mg/dl (9-20) H 08/06/25 05:13
Creatinine 6.6 mg/dL (0.7-1.3) H* 08/06/25 05:13
eGFR 9.47 08/06/25 05:13
Glucose 102 mg/dl (70-99) H 08/06/25 05:13
Calcium 8.4 mg/dl (8.4-10.2) 08/06/25 05:13
Albumin 3.9 g/dl (3.5-5.0) 08/06/25 05:13
Physical Exam
Patient is awake alert oriented and in no distress. Mood and affect were pleasant, insight and judgment were good. Pupils are equal round and reactive to light, extraocular movements are intact, sclera were anicteric. Hearing was normal, ears and
nose are intact. Oropharynx was clear. Neck was supple with trachea midline and no thyromegaly. Heart was regular rate and rhythm without rubs. Lower extremities without edema. Lungs were clear to auscultation bilaterally and with normal
excursion. Abdomen was soft, nontender, with normal active bowel sounds, and no hepatosplenomegaly. Skin was without rash and with normal turgor. AV fistula left upper arm good thrill and bruit.
Data Reviewed
-
Ultrasound: Report Reviewed by me (Ultrasound AV fistula 08/06/2025 nonocclusive thrombus central graft)
Medical Tests (Nuc Med, Echo etc): Report Reviewed by me (Echocardiogram 09/13/2024 EF 50% moderate TR)
Labs: Labs Reviewed by me
Old Records: Reviewed
Assessment/Plan
-
Impression:
End-stage renal disease.
AV graft bleed
GI bleed
Anemia.
Chronic hypotension on midodrine support
Hyperphosphatemia.
mechanical aortic valve on chronic anticoagulation
AFib.
Plan:
HD tomorrow
midodrine continues for bp support on HD
Maintain sevelamer binder therapy for hyperphosphatemia
fluid restriction and dietary restrictions directed for ESRD
TIO on HD
Vascular surgery evaluation of AV graft no intervention required
Holding Coumadin
Follow hemoglobin
[2025-08-06] MEDS: SYNTHROID 100 MCG PO (13:02)
[2025-08-06] MEDS: LAMICTAL 200 MG PO ×2 (13:03→21:06)
[2025-08-06] MEDS: SYNTHROID 112 MCG PO (13:03)
[2025-08-06] MEDS: FLORINEF 0.1 MG PO (13:03)
--- NOTE | 2025-08-06 14:35 | CON.CAR ---
Addendum entered and electronically signed by Laura Murphy DO 08/06/25 16:26:
I saw and examined the patient.
The Jigmaker's note was reviewed and I agree with the note.
Comment: Patient came to the ER today with a bleeding fistula, dark blood in his stools and an elevated INR, cardiology is consulted due to the need for warfarin OAC in the setting of mechanical MVR. Patient is originally from [place], [place] and
has a complicated past medical history spread out over the [facility]. He had a mechanical mitral valve while living in [place], [place] in 1997. He says this was for a history rheumatic heart disease as a child. Then sometime around 2008 he moved
to [place], [place] with his and around that time he says he had a marked deterioration in his renal function and was started on hemodialysis in response to hypertensive nephropathy. He says that since then he had chronic infections
related to his hemodialysis port. During an admission to [facility] in 2014 he required a trach. With the addition of trach to his dialysis, he could only be transferred to [facility] (now [facility]). He has been there
ever since even though his trach was removed. Patient lives in a 4 bedroom unit at [facility] where he is a long-term resident and travels by yulee 3x a week for HD sessions. All of his family lives in [place], and his has since him,
he has not been visited by family in years. Afib is permanent and patient says he can hear his heart beat due to mechanical valve, but no palpitations. Patient thinks he had a cardiac arrest while admitted to [facility] years ago that was related to
amiodarone. He was on digoxin in 2015, but it was stopped for unclear reasons. Patient says he has chest pain, he has chronic chest pain. INR was 6.52 on admission this morning and he says INRs are checked every Tuesday with INR goal of 2.5 to 3.5.
Vascular surgery evaluated patient and they graft is patent without obvious stenosis and bleeding thought to be from supratherapeutic INR and so no surgical intervention recommended. GI consulted with plan for EGD/colonoscopy once INR acceptable
GEN: NAD, AOA x 3 RA
HEENT:mmm
LUNGS: Clear to auscultation with decreased bases.
CV: Not on tele. Irreg irreg, S1/S2, 11/12 syst LSB
ABD: soft, BS+, NT, ND
EXT: +1 B/L LE edema. Left forearm AV fistula with wrapping and dried blood.
Plan:
Presents with dialysis fistula bleeding as well as melena in the setting of supratherapeutic INR 6.52
-Variable hemoglobin anywhere from mid8 to 10 with prior history of bleeding fistula requiring transfusion
-Hemoglobin on admission 7.3 g/dL status post 1 unit packed red blood cells
-Received 5 mg vitamin K; warfarin obviously held
-IV Protonix 40 mg twice daily
-Vascular surgery consulted for fistula evaluation and pressure dressing applied. Plan for observation.
-GI consulted with plan for eventual EGD/colonoscopy this admission once INR acceptable
-Repeat hemoglobin and INR planned tonight at 8 PM
-Patient is on warfarin therapy for history of mechanical mitral valve and atrial fibrillation with prior history of stroke. Usual goal INR 2.5�3.5
-Monitor INR closely after vitamin K. If no active bleeding would start IV heparin without bolus once INR is 2 or less
-From a cardiac standpoint, patient is stable for GI procedures once INR acceptable
[employer] mechanical mitral valve with last echocardiogram September 13, 2024. Will repeat echocardiogram this admission.
-History of cardiomyopathy with EF 25% in 2021 that had improved to 50%.
-Monitor volume status if requires further transfusions
-Patient is an uric on dialysis.
-Anticoagulation currently held due to bleeding and symptomatic anemia
-Heparin bridge once INR 2 or less as long as no active bleeding
-Antibiotic prophylaxis per societal guidelines
Permanent atrial fibrillation, asymptomatic with heart rates controlled
-Patient is not on AV ismael blocking agents with history of intolerance to beta-blockers due to hypotension
- Amiodarone listed as an allergy/intolerance, unconfirmed
History of orthostatic hypotension
-Outpatient dose of midodrine 10 mg every 6 hours plus Florinef 0.1 mg daily has been continued
End-stage renal disease on dialysis Tuesday�nephrology consulted
Will follow with you.
Patient will need outpatient cardiology follow-up; he has not been seen in our office since 2019.
Original Note:
Consultation
Consultation Request
Date/Time Consultation Requested: 08/06/2025
Date/Time Consultation Performed: 08/06/2025
Requesting Provider: Dr. Wilkes
Performing Provider: Dr. Murphy
Reason for Consultation: GIB on warfarin with mechanical MVR
Medical History
-
History of Present Illness:
Patient came to the ER today with a bleeding fistula, dark blood in his stools and an elevated INR, cardiology is consulted due to the need for warfarin OAC in the setting of mechanical MVR. Patient is originally from [place], [place] and has a
complicated past medical history spread out over the [facility]. He had a mechanical mitral valve while living in [place], [place] in 1997. He says this was for a history rheumatic heart disease as a child. Then sometime around 2008 he moved to
[place], [place] with his and around that time he says he had a marked deterioration in his renal function and was started on hemodialysis in response to hypertensive nephropathy. He says that since then he had chronic infections related
to his hemodialysis port. During an admission to [facility] in 2014 he required a trach. With the addition of trach to his dialysis, he could only be transferred to [facility] (now [facility]). He has been there ever
since even though his trach was removed. Patient lives in a 4 bedroom unit at [facility] where he is a long-term resident and travels by van 3x a week for HD sessions. All of his family lives in [place], and his has since him, he
has not been visited by family in years. Afib is permanent and patient says he can hear his heart beat due to mechanical valve, but no palpitations. Patient thinks he had a cardiac arrest while admitted to [facility] years ago that was related to
amiodarone. He was on digoxin in 2014, but it was stopped for unclear reasons. Patient says he has chest pain, he has chronic chest pain. INR was 6.52 on admission this morning and he says INRs are checked every Tuesday with INR goal of 2.5 to 3.5.
Vascular surgery evaluated patient and they graft is patent without obvious stenosis and bleeding thought to be from supratherapeutic INR and so no surgical intervention recommended. GI will see patient as well.
PMH:
Previous admission for HD fistula bleeding 09/10/24 until 09/14/2024 s/p fistula revision 09/13/24
s/p left forearm AV fistula
Revision 09/13/2024
Revision 12/20/2024
Anemia, multifactorial
Permanent atrial fibrillation
Recovered NICM, EF was 25-30% by echo 05/26/22, then 50% by echo 09/13/24
Chronic HFrEF
s/p SJM Mechanical MVR 1997
Chronic Coumadin therapy
Severe tricuspid regurgitation
h/o ICD explant due to infection 2005
HTN
ESRD on HD MWF
h/o CVA, by review of CT head with an area of encephalomalacia involving the right anterolateral frontal lobe 07/2015
Obstructive sleep apnea
Former smoker
Past Medical History
Past Medical History: Other (in HPI)
Past Surgical History: Cardiac ([employer] Jefry mechanical MVR 1997)
Social History
Tobacco: Former Smoker
Alcohol: None
Drug: None
Personal:
Living: Group Home
Family History
Family History: Other (CVA, ESRD)
Allergies / Home Medications
Allergy/AdvReac Type Severity Reaction Status Date / Time
dalteparin,porcine Allergy Unknown Verified 05/15/25 16:50
enoxaparin Allergy Unknown, Verified 05/15/25 16:50
[facility] record
isosorbide Allergy Unknown, Verified 05/15/25 16:50
[facility] record
meperidine Allergy Unknown, Verified 05/15/25 16:50
[facility] record
piperacillin sodium (From Allergy Itching; Verified 05/15/25 16:50
Zosyn) Tolerated
AMOXICILLIN
shellfish derived Allergy ALLERGY-FISH Verified 05/15/25 16:50
EXCEPT TUNA
tazobactam sodium (From Allergy Itching Verified 05/15/25 16:50
Zosyn)
�Medication �Instructions �Recorded �Confirmed �Type
gabapentin 300 mg capsule 300 mg PO HS Pain 03/11/15 08/06/25 History
polyethylene glycol 3350 17 gram 17 grams PO SUTUTHSA constipation 02/23/17 08/06/25 History
oral powder packet
atorvastatin 20 mg tablet 20 mg PO HS High cholesterol 10/04/18 08/06/25 History
sevelamer carbonate 800 mg tablet 800 mg PO MEALS Kidney Disease 10/04/18 08/06/25 History
pantoprazole 40 mg tablet,delayed 40 mg PO DAILY Gastrointestinal 01/17/20 08/06/25 History
release issue
acetaminophen 325 mg tablet 650 mg PO Q4HPRN PRN mild 10/14/23 08/06/25 History
pain/temp>100F
budesonide 0.25 mg/2 mL suspension 0.25 mg inhalation R [id number] PRN 10/14/23 08/06/25 History
for nebulization SOB/wheezing
midodrine 10 mg tablet 10 mg PO Q6H Hold SBP >/= 150 10/14/23 08/06/25 History
sennosides 8.6 mg tablet (senna) 8.6 mg PO HS Constipation 10/14/23 08/06/25 History
albuterol sulfate 90 mcg/actuation 2 puff inhalation R Q4HPRN PRN 09/07/24 08/06/25 History
aerosol inhaler asthma
cetirizine 10 mg tablet 10 mg PO DAILY Allergies 09/07/24 08/06/25 History
bupropion HCl 150 mg tablet,12 hr 150 mg PO MOWEFR depression/anxiety 09/10/24 08/06/25 History
sustained-release (Wellbutrin SR)
fludrocortisone 0.1 mg tablet 0.1 mg PO DAILY Blood pressure #30 09/14/24 08/06/25 Rx
tabs
bisacodyl 10 mg rectal suppository 10 mg DE DAILYPRN PRN constipation 12/14/24 08/06/25 History
(Dulcolax (bisacodyl))
diphenhydramine HCl 25 mg tablet 25 mg PO Q6HPRN PRN allergies 12/14/24 08/06/25 History
(Benadryl Allergy)
fluticasone furoate 200 1 inh inhalation R DAILY 05/15/25 08/06/25 History
mcg/actuation blister powder for
inhalation
lamotrigine 200 mg tablet 200 mg PO BID 05/15/25 08/06/25 History
(Lamictal)
levothyroxine 175 mcg/mL oral 210 mcg PO DAILY 05/15/25 08/06/25 History
solution (Tirosint-Nessa)
lidocaine-prilocaine 2.5 %-2.5 % 1 applic topical MOWEFR apply to L 05/15/25 08/06/25 History
topical cream arm fistula
tramadol 50 mg tablet 50 mg PO [id number] PRN 05/15/25 08/06/25 History
moderate-severe pain
vitamin B complex and vitamin C 1 cap PO HS 05/15/25 08/06/25 History
no.20-folic acid 1 mg capsule
(Renal Caps)
trazodone 100 mg tablet 200 mg PO HS@0000 08/06/25 08/06/25 History
Review of Systems
-
History Source: Patient
All other systems: Negative unless noted
Physical Exam
Vital Signs
Temp Pulse Resp BP Pulse Ox
98.4 F 110 17 98/50 100
08/06/25 10:50 08/06/25 13:02 08/06/25 10:50 08/06/25 13:02 08/06/25 10:50
GEN: NAD. Sleeping initially and then awakens easily and is AAO x3
HEENT: EOMI, MMM
LUNGS: 3 L NC. CTA B/L without wheeze or rales
CV: Not on tele. Irreg irreg, S1/S2, 1/6 syst LSB, no gallop
ABD: soft, BS+, NT, ND
EXT: +1 B/L LE edema. No clubbing, cyanosis or lesions B/L
NEURO: No focal or lateralizing weakness
SKIN: Warm, dry and pink. No rash
Lab Results
08/06/25 05:13
Impression / Plan
-
PCP: Dr. Flores at [facility]
Primary Therapist Occupational: last seen in the office by Dr. Lovell in 2018
Assessment:
Admitted with bleeding fistula and GIB 08/06
Previous admission for HD fistula bleeding 09/10/24 until 09/14/2024 s/p fistula revision 09/13/24
s/p left forearm AV fistula
Revision 09/13/2024
Revision 12/20/2024
Anemia, multifactorial
Permanent atrial fibrillation
Recovered NICM, EF was 25-30% by echo 05/26/22, then 50% by echo 09/13/24
Chronic HFrEF
s/p SJM Mechanical MVR 1997
Chronic Coumadin therapy
Severe tricuspid regurgitation
h/o ICD explant due to infection 2005
HTN
ESRD on HD MWF
h/o CVA, by review of CT head with an area of encephalomalacia involving the right anterolateral frontal lobe 07/2015
Obstructive sleep apnea
Former smoker
ECHO 06/2018: Global hypokinesis, most marked in anterior and septal segments, EF 35 to 40%, normal function of mechanical MVR with peak/mean gradients 19/7 mmHg, no MR, dilated left atrium, dilated right ventricle, moderate TR, moderate pulmonary
hypertension, PAP 52 to 57 mmHg, atrial septal aneurysm
Echo 05/26/22: EF 25-30%, mechanical mitral valve with peak/mean 13/5 mmHg and no MR, aortic valve is normal, dilated and hypokinetic RV with dilated RA and mod MR with PAP 50-55 mmHg
ECHO 09/13/24: EF 50%, mild concentric LVH, flattened septum in systole and diastole consistent with RV pressure and volume overload, well-seated mechanical mitral valve with mean gradient 6 mmHg, mild to moderate TR, PAP 75 to 80 mmHg
Plan:
-Patient came to the ER today with a bleeding fistula, dark blood in his stools and an elevated INR, cardiology is consulted due to the need for warfarin OAC in the setting of mechanical MVR. Patient is originally from [place], [place] and has a
complicated past medical history spread out over the [facility]. He had a mechanical mitral valve while living in [place], [place] in 1997. He says this was for a history rheumatic heart disease as a child. Then sometime around 2008 he moved to
[place], [place] with his and around that time he says he had a marked deterioration in his renal function and was started on hemodialysis in response to hypertensive nephropathy. He says that since then he had chronic infections related
to his hemodialysis port. During an admission to [facility] in 2014 he required a trach. With the addition of trach to his dialysis, he could only be transferred to [facility] (now [facility]). He has been there ever
since even though his trach was removed. Patient lives in a 4 bedroom unit at [facility] where he is a long-term resident and travels by yulee 3x a week for HD sessions. All of his family lives in [place], and his has since him, he
has not been visited by family in years. Afib is permanent and patient says he can hear his heart beat due to mechanical valve, but no palpitations. Patient thinks he had a cardiac arrest while admitted to [facility] years ago that was related to
amiodarone. He was on digoxin in 2014, but it was stopped for unclear reasons. Patient says he has chest pain, he has chronic chest pain. INR was 6.52 on admission this morning and he says INRs are checked every Tuesday with INR goal of 2.5 to 3.5.
Vascular surgery evaluated patient and they graft is patent without obvious stenosis and bleeding thought to be from supratherapeutic INR and so no surgical intervention recommended. GI will see patient as well.
-Check ECG, patient with permanent Afib. Ordered by me.
-Patient was admitted with heme positive anemia with dark red blood per rectum and also bleeding from his left forearm AV fistula, this is all in the setting of supratherapeutic INR 6.52 on admission. ER gave the patient vitamin K 5 mg PO x1 on
08/06/25. Warfarin is now on hold. Repeat INR pending for tonight
-Patient has traditionally been bridged with heparin gtt when INR has been subtherapeutic due to previous mechanical MVR and CVA. When INR is less than 2 and patient is not frankly bleeding then would start heparin gtt
-Recheck INR in a.m. as well and again with start heparin gtt if INR is less than 2 and no oscar bleeding
-Suspect patient will need inpatient GI work up given that he lives at [facility] and goes to HD 3 times a week.
-A-fib is permanent. HR control has been limited by hypotension in past, will add to tele, orders placed by me.
-Patient was not taking any AV ismael blockers prior to admission due to hypotension
-Outpatient dose of midodrine 10 mg every 6 hours plus Florinef 0.1 mg daily has been continued
-He had been on digoxin in the past and it was stopped for unclear reasons, but possibly because of ESRD. Patient reports he had cardiac arrest with amiodarone at [facility] in 2014, but cannot find any records of that or records that
Amio is listed as an allergy/intolerance
-EF was 25% in 2021. Echo from 09/13 with improvement in EF to 50%.
-Patient was intolerant to Toprol-XL due to hypotension
-Patient is not a candidate for MALU/ARB/Aldactone/SGLT2 due to hemodialysis
[2025-08-06 16:37] LABS: Glucose - Point of Care 82 mg/dl (70-99)
[2025-08-06] MEDS: NSS (PRESERVATIVE FREE) 10 ML IV (17:51)
[2025-08-06] MEDS: FLOVENT 110 MCG INHALER 2 PUFF INH (19:24)
[2025-08-06 20:26] LABS: Hemoglobin 7.2 g/dL (13.0-18.0)
[2025-08-06 20:35] LABS: INR 1.96; PT 22.5 Sec (11.4-14.6)
[2025-08-06] MEDS: NEURONTIN 300 MG PO (21:08)
[2025-08-06 21:43] LABS: Glucose - Point of Care 125 mg/dl (70-99)
[2025-08-06] MEDS: DESYREL 150 MG PO (23:50)
[2025-08-07] MEDS: LOPRESSOR 2.5 MG IV (02:18)
--- NOTE | 2025-08-07 02:20 | PTCARENOTE ---
This RN noticed pt's HR on monitor in a fib spiking into the 120s. EKG collected reading atrial fibrillation with rapid ventricular response. Pt asymptomatic. FABIEN Mario notified. 2.5 mg IV lopressor ordered. Refer to MAR. Plan of care
ongoing.
[2025-08-07 03:00] VITALS: BP 92/54
[2025-08-07] MEDS: SYNTHROID 112 MCG PO (06:23)
[2025-08-07] MEDS: SYNTHROID 100 MCG PO (06:23)
[2025-08-07 07:20] VITALS: BP 89/58
[2025-08-07] MEDS: WELLBUTRIN SR (12 hour sustained release) 150 MG PO (07:35)
[2025-08-07] MEDS: LAMICTAL 200 MG PO ×2 (07:35→20:12)
[2025-08-07] MEDS: EMLA CREAM 5 GRAM TOPICAL (07:35)
[2025-08-07] MEDS: FLORINEF 0.1 MG PO (07:35)
[2025-08-07] MEDS: PROTONIX IV 40 MG IV ×2 (07:36→20:12)
[2025-08-07] MEDS: NSS (PRESERVATIVE FREE) 10 ML IV ×2 (07:36→20:12)
--- NOTE | 2025-08-07 07:41 | W.PN.UPDATE ---
Update Note
Progress Note Update
Seen and examined with CREPE MAKER. See full consultation note. I agree with the findings noted in that note. 49-year-old male known to me with history of longstanding end-stage renal disease on hemodialysis. Prior had performed revision of fistula with
rerouting interposition graft. Had been functioning well, but noted to have prolonged bleeding. However, his INR on admission was greater than 7. Patient does not note any problems prior. Patient is on anticoagulation for a [employer] Jefry's
mechanical mitral valve. Of note he also had melena on this admission.
On exam/he is awake and alert. No acute distress. Breathing is unlabored. Left upper extremity fistula/graft has a good thrill. It is nonpulsatile. Hand is pink and warm.
Plan/ Likely prolonged bleeding from puncture site secondary to elevated INR. I do not think it is due to an outflow stenosis or central venous occlusion given that the fistula/graft are not pulsatile. Would recommend usage of the fistula/graft
for dialysis again. If repeated problems with prolonged bleeding after hemodialysis needles are removed, and his INR has been more corrected then would consider fistulogram. Otherwise no indication for it at this time. Will sign off. Please call
with questions or persistent issues with fistula.
[2025-08-07] MEDS: FLOVENT 110 MCG INHALER 2 PUFF INH ×2 (07:53→19:59)
[2025-08-07 08:02] LABS: Glucose - Point of Care 121 mg/dl (70-99)
--- NOTE | 2025-08-07 08:04 | W.PN.GI.CBS2 ---
Today's Communication / Plan
-
INR decreased
Hgb decreasing, black stools
possibly actively bleedy
plan for CT A/P, possible CTA
Assessment / Plan
-
This is a 49-year-old male with significant past medical history of ESRD on HD, CVA, COPD on home O2, Valve replacement, afib on Coumadin, who presented to [facility] from nursing facility for prolonged bleeding following HD at left upper
extremity AV graft with melena on presentation in the setting of supratherapeutic anticoagulation INR of 6.5. He says that the dose of Coumadin was recently increased.
#GI bleed
#Acute blood loss anemia
dark brown heme+ stool in ED c/f GI bleed in the setting of supratherapeutic anticoagulation
upper GI source versus lower GI source, bleeding could be related to possible angioectasias versus PUD or neoplasm
-History of mitral valve replacement- on warfarin
-Atrial fibrillation
s/p vitamin K
S/p 1 PRBC Hgb improved 8.4 but dropped overnight 7.2
Continue PPI
Follow H&H closely
OK for clears today no red liquids
Hold warfarin, restart when INR is within range
Will discuss with cardiology for heparin bridge
Transfusions per primary team
EGD/colonoscopy inpatient as blood loss continues
Trend CMP, CBC, coags
CT abdomen pelvis given increased abdominal pain
possible CTA
This is a preliminary note, defer to attending's note for recommendations.
Subjective
Subjective
Patient reports doing okay today however he did have bowel movement yesterday that was dark and bloody. He also endorses new abdominal pain that started yesterday 1 hour after eating and has persisted. He rates the pain as 8 out of 10 at baseline.
He endorses no nausea or vomiting. Date of Service: August 07, 2025
Objective
Data Reviewed
Laboratory Data:
Laboratory Results
PT 22.5 Sec (11.4-14.6) H 08/06/25 20:16
INR 1.96 D 08/06/25 20:16
Total Bilirubin 0.7 mg/dl (0.2-1.3) 08/06/25 05:13
AST 36 U/L (17-59) 08/06/25 05:13
ALT 33 U/L (0-50) 08/06/25 05:13
Alkaline Phosphatase 129 U/L (38-126) H 08/06/25 05:13
Vital Signs and I&O:
Vital Signs
Temp Pulse Resp BP Pulse Ox
97.8 F 91 16 89/58 100
08/07/25 03:00 08/07/25 07:57 08/07/25 07:57 08/07/25 07:33 08/07/25 07:57
I&O
08/06/25 08/07/25 08/08/25
06:59 06:59 06:59
Intake Total 1390 / 1390
Balance 1390 / 1390
Physical Exam
Physical Exam
HEENT: Anicteric and Moist mucous membranes
Cardiology: Normal Sinus Rhythm and S1
Pulmonary: Clear
GI: Soft and Tender (Generalized tenderness with guarding)
Extremities: No Edema
[2025-08-07 08:52] LABS: Hematocrit 22.6 % (39.0-52.0); Hemoglobin 7.7 g/dL (13.0-18.0); Mean Corp Hgb Conc. 34.1 g/dL (33.0-37.0); Mean Corpuscular Volume 87.3 fL (80.0-94.0); Platelet Count 176 10^3/uL (130-400); Red Cell Dist. Width 16.1 % (11.5-14.5)
[2025-08-07 09:01] LABS: INR 1.27; PT 16.4 Sec (11.4-14.6)
[2025-08-07] MEDS: FLEXBUMIN 25% FOR HEMODIALYSIS 12.5 GRAMS IV ×2 (09:05→10:56)
[2025-08-07] MEDS: MANNITOL 25% 12.5 GRAMS IV ×2 (09:10→10:56)
[2025-08-07] MEDS: RETACRIT 10000 UNITS IV (09:12)
[2025-08-07 09:31] LABS: Blood Urea Nitrogen 67 mg/dl (9-20); Calcium 8.3 mg/dl (8.4-10.2); Carbon Dioxide 21 mmol/L (22-30); Chloride 95 mmol/L (98-107); Estimated Creatinine Clearance 12 ml/min; Glucose 109 mg/dl (70-99); Potassium 5.1 mmol/L (3.5-5.1); Sodium 130 mmol/L (135-145); eGFR 6.52
--- NOTE | 2025-08-07 09:59 | W.PN.CARDCBS ---
Today's Communication / Plan
-
Start heparin gtt with subtherapeutic INR -will discuss timing with GI team
Impression / Plan
-
PCP: Dr. Flores at [facility]
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 Lovell in 2018
Assessment:
Admitted with bleeding fistula and GIB 08/06
Previous admission for HD fistula bleeding 09/10/24 until 09/14/2024 s/p fistula revision 09/13/24
s/p left forearm AV fistula
Revision 09/13/2024
Revision 12/20/2024
Anemia, multifactorial
Permanent atrial fibrillation
Recovered NICM, EF was 25-30% by echo 05/26/22, then 50% by echo 09/13/24
Chronic HFrEF
s/p SJM Mechanical MVR 1997
Chronic Coumadin therapy
Severe tricuspid regurgitation
h/o ICD explant due to infection 2005
HTN
ESRD on HD MWF
h/o CVA, by review of CT head with an area of encephalomalacia involving the right anterolateral frontal lobe 07/2015
Obstructive sleep apnea
Former smoker
ECHO 06/2018: Global hypokinesis, most marked in anterior and septal segments, EF 35 to 40%, normal function of mechanical MVR with peak/mean gradients 19/7 mmHg, no MR, dilated left atrium, dilated right ventricle, moderate TR, moderate pulmonary
hypertension, PAP 52 to 57 mmHg, atrial septal aneurysm
Echo 05/26/22: EF 25-30%, mechanical mitral valve with peak/mean 13/5 mmHg and no MR, aortic valve is normal, dilated and hypokinetic RV with dilated RA and mod MR with PAP 50-55 mmHg
ECHO 09/13/24: EF 50%, mild concentric LVH, flattened septum in systole and diastole consistent with RV pressure and volume overload, well-seated mechanical mitral valve with mean gradient 6 mmHg, mild to moderate TR, PAP 75 to 80 mmHg
Patient came to the ER today with a bleeding fistula, dark blood in his stools and an elevated INR, cardiology is consulted due to the need for warfarin OAC in the setting of mechanical MVR. Patient is originally from [place], [place] and has a
complicated past medical history spread out over the [facility]. He had a mechanical mitral valve while living in [place], [place] in 1997. He says this was for a history rheumatic heart disease as a child. Then sometime around 2008 he moved to
[place], [place] with his and around that time he says he had a marked deterioration in his renal function and was started on hemodialysis in response to hypertensive nephropathy. He says that since then he had chronic infections related
to his hemodialysis port. During an admission to [facility] in 2014 he required a trach. With the addition of trach to his dialysis, he could only be transferred to [facility] (now [facility]). He has been there ever
since even though his trach was removed. Patient lives in a 4 bedroom unit at [facility] where he is a long-term resident and travels by [place] 3x a week for HD sessions. All of his family lives in [place], and his has since him, he
has not been visited by family in years. Afib is permanent and patient says he can hear his heart beat due to mechanical valve, but no palpitations. Patient thinks he had a cardiac arrest while admitted to [facility] years ago that was related to
amiodarone. He was on digoxin in 2015, but it was stopped for unclear reasons. Patient says he has chest pain, he has chronic chest pain. INR was 6.52 on admission this morning and he says INRs are checked every Tuesday with INR goal of 2.5 to 3.5.
Vascular surgery evaluated patient and they graft is patent without obvious stenosis and bleeding thought to be from supratherapeutic INR and so no surgical intervention recommended. GI will see patient as well.
Plan:
-Patient was admitted with heme positive anemia with dark red blood per rectum and also bleeding from his left forearm AV fistula, this is all in the setting of supratherapeutic INR 6.52 on admission. ER gave the patient vitamin K 5 mg PO x1 on
9/30/25. Warfarin is now on hold. Repeat INR 1.27 this AM. Tells me no further dark stools today.
-I would favor starting heparin drip while subtherapeutic mechanical MVR and CVA
-A-fib is permanent. HR control has been limited by hypotension in past, will add to tele, orders placed by me.
-Patient was not taking any AV ismael blockers prior to admission due to hypotension
-Outpatient dose of midodrine 10 mg every 6 hours plus Florinef 0.1 mg daily has been continued
-EF was 25% in 2021. Echo from 09/13 with improvement in EF to 50%.
-Patient was intolerant to Toprol-XL due to hypotension
-Patient is not a candidate for MALU/ARB/Aldactone/SGLT2 due to hemodialysis
Progress Note - Carbon Sequestration Plant Operator
Subjective
Date of Service: August 07, 2025
Tells me he had no further dark stools overnight or this morning. Currently being dialyzed at the time my evaluation. No cardiac complaints.
Objective
Labs:
08/07/25 08:14
08/07/25 08:14
Labs
Hgb 7.7 g/dL (13.0-18.0) L 08/07/25 08:14
Hct 22.6 % (39.0-52.0) L 08/07/25 08:14
Plt Count 176 10^3/uL (130-400) 08/07/25 08:14
PT 16.4 Sec (11.4-14.6) H 08/07/25 08:14
INR 1.27 08/07/25 08:14
Sodium 130 mmol/L (135-145) L 08/07/25 08:14
Potassium 5.1 mmol/L (3.5-5.1) 08/07/25 08:14
BUN 67 mg/dl (9-20) H 08/07/25 08:14
Creatinine 9.0 mg/dL (0.7-1.3) H* 08/07/25 08:14
Glucose 109 mg/dl (70-99) H 08/07/25 08:14
Vital Signs and I&O:
Vital Signs
Temp Pulse Resp BP Pulse Ox
97.5 F 91 16 89/58 98
08/07/25 07:20 08/07/25 07:57 08/07/25 07:57 08/07/25 07:33 08/07/25 07:57
Vital Signs
Temp Pulse Resp BP Pulse Ox
97.5 F 91 16 89/58 98
08/07/25 07:20 08/07/25 07:57 08/07/25 07:57 08/07/25 07:33 08/07/25 07:57
Intake & Output
08/05/25 08/06/25 08/07/25 08/08/25
06:59 06:59 06:59 06:59
Intake Total 1390 / 1390
Balance 1390 / 1390
Physical Exam
Physical Exam
Gen: NAD, AAOx3
HEENT: NC/AT, sclera anicteric
Neck: Difficult to assess JVD
CV: Heart regular, crisp mechanical heart sounds
Lungs: CTAB on 2L NC
Abd: S/ND
Ext: No LE edema
Skin: Warm, dry
Neuro: Non-focal
--- NOTE | 2025-08-07 10:18 | W.PN.NEPH.HD ---
Assessment
-
Patient seen on dialysis
Systolic blood pressure low with 10 mg of midodrine given at 94 systolic
Hemoglobin at 7.4 following blood transfusion
INR down to 1.27
Progress Note - Hemodialysis
-
Date of Service: August 07, 2025
Duration: 30 minutes and 3 hours
Potassium Bath: 2
Calcium Bath: 2.5
Opti-Dialyzer: 160
Ultrafiltration: Other (2)
Blood Flow: 400
Dialysate Flow: 600
Heparin: None
EPO: 10,000
--- NOTE | 2025-08-07 10:28 | W.PN.UPDATE ---
Update Note
Progress Note Update
Patient has an allergy to Lovenox that he describes as itching, but he has tolerated heparin gtt over several different admissions here to [facility] without any difficulty. Heparin gtt ordered by me now for bridging of his mechanical AVR and history of
permanent A-fib with previous CVA while warfarin is on hold for GIB.
[2025-08-07] MEDS: OMNIPAQUE 50 ML PO (10:47)
[2025-08-07 10:55] LABS: APTT 29.7 Sec (23.4-35.0)
[2025-08-07 11:15] VITALS: BP 88/54
[2025-08-07 11:36] LABS: Glucose - Point of Care 98 mg/dl (70-99)
--- NOTE | 2025-08-07 11:46 | W.PN.HOSP.TC ---
Today's Communication/Plan
-
IV Heparin gtt
follow up timing EGD/ Colonoscopy
Assessment / Plan
Assessment / Plan
49-year-old with complex past medical history including end-stage renal disease on hemodialysis via left upper extremity AV fistula, chronic hypoxic respiratory failure on home O2, obstructive sleep apnea, congestive heart failure, chronic anemia,
Findings atrial fibrillation, mechanical mitral valve replacement on anticoagulation with warfarin who presents to the emergency department with complaints of bleeding from fistula site after hemodialysis in the setting of supratherapeutic INR to
7.6 on Tuesday, also reports approximately 3 days of bloody bowel movements. He was found to be hypotensive, in rapid afib with RVR.
PLAN:
1. Supratherapeutic INR
- Admitedt to telemetry
- Hold Coumadin
-s/p 5 mg PO vitamin K with subtherapeutic INR this AM - see plan below
Mechanical Mitral Valve
-goal INR 2.5-3
-Cardiology consult to help guide bridging therapy
-start IV Heparin gtt now for subtherapeutiic INR
2. Bleeding AV fistula - Hemostasis acheived
- vascular consulted, fistula u/s study
- serial examinations
- no need for intervention unless bleeds again in setting of therapeutic INR
3. GI bleed/Anemia - Dark tarry stool
-H/O GI bleed s/p EGD/[facility] in 2020 showing no active bleed, ulcers, diverticuli or mass. Polyp treated. Non-bleeding internal hemorrhoids noted.
- appreciate GI consult
- eventual EGD/ [facility]
- IV PPI
4. Atrial fibrillation - permanent afib on coumadin. Not currently on rate agent.
5. End-stage renal disease
-appreciate renal consult
-HD MWF
6. Chronic Hypoxia - JOVITA, CHF (no acute exacerbation)
- stable on 3 L O2. No CPAP.
7. Chronic orthostatic hypotension
- continue midodrine/fludrocortisone
8. Sz d/o
- lamictal continued
9 Hypothyroid
- on levothyroxine
10 Diabetes
- diet controlled, sliding scale insulin
DVT PPX - SCD
Code status - Full code
Anticipated Discharge: 24 - 48 hours
Subjective/Interval History
-
Date of Service: August 07, 2025
no further GI bleeding
seen on HD
Objective Data
-
Labs:
Laboratory Results
08/07/25 08/07/25
08:14 10:25
WBC 10.2
Hgb 7.7 L
Hct 22.6 L
Plt Count 176
PT 16.4 H
INR 1.27
APTT 29.7
Sodium 130 L
Potassium 5.1
Chloride 95 L
Carbon Dioxide 21 L
BUN 67 H
Creatinine 9.0 H*
Glucose 109 H
Calcium 8.3 L
Vital Signs:
Vital Signs
Temp Pulse Resp BP Pulse Ox
97.5 F 112 16 88/54 100
08/07/25 11:15 08/07/25 11:15 08/07/25 11:15 08/07/25 11:15 08/07/25 11:15
I&O
08/06/25 08/07/25 08/08/25
06:59 06:59 06:59
Intake Total 1390 / 1390
Balance 1390 / 1390
Review of Systems
-
History Source: Patient
All other systems: Reviewed and negative
Physical Exam
-
General: Well Developed and No Apparent Distress
HEENT: PERRLA
Respiratory: Clear to Auscultation
Cardiac: Regular Rhythm and S1/S2
GI: Soft, Nontender and Nondistended
Musculoskeletal: No Edema
Neuro: Awake, Alert and Oriented
Psych: Calm
Data Reviewed
-
Diagnostic Radiology: Report Reviewed by me
Labs: Labs Reviewed by me
[2025-08-07] MEDS: HEPARIN 25000 UNITS/250 ML IV (11:57)
--- NOTE | 2025-08-07 12:31 | CM ---
Patient seen at bedside
IA completed
Dx: coagulopathy
PMH: ESRD
resides at [facility] -- [facility]
states receives dialysis at [facility] transports
confirmed with Kaelyn [phone] at [facility] M-W-F 7am
[facility] fax #: [phone]
PLOF: Reports wheelchair, can self propel
DME: Wheelchair, states wears oxygen 3L continuous
PCP: William Bellamy
Pharmacy: [facility]
PLAN: Return to [facility] when medically stable, CM to continue to follow
[facility]
Report #: [phone]
Fax #: [phone]
[2025-08-07] MEDS: ZYRTEC 5 MG PO (12:37)
[2025-08-07] MEDS: ULTRAM 25 MG PO (15:12)
--- NOTE | 2025-08-07 15:57 | W.PN.GI.CBS2 ---
Today's Communication / Plan
-
EGD tomorrow
Start MiraLAX
Milk of molasses enema today
Prep over the weekend with a 2-day prep for colonoscopy on Tuesday given severe constipation
Assessment / Plan
-
This is a 49-year-old male with significant past medical history of ESRD on HD, CVA, COPD on home O2, Valve replacement, afib on Coumadin, who presented to [facility] from nursing facility for prolonged bleeding following HD at left upper
extremity AV graft with melena on presentation in the setting of supratherapeutic anticoagulation INR of 6.5. He says that the dose of Coumadin was recently increased.
#GI bleed with supratherapeutic INR
#Acute blood loss anemia
dark brown heme+ stool in ED c/f GI bleed in the setting of supratherapeutic anticoagulation
upper GI source versus lower GI source, bleeding could be related to possible angioectasias versus PUD or neoplasm
-History of mitral valve replacement- on warfarin
-Atrial fibrillation
s/p vitamin K INR today 1.27 and started on heparin
S/p 1 PRBC 08/06 Hgb improved
Continue PPI
Follow H&H closely
CT shows possible fecal impaction will give a milk of molasses enema
Will schedule him for endoscopy tomorrow will hold heparin for 4 hours prior to the procedure
He will need a 2-day prep to clean for the colonoscopy he also had a poor prep on his prior colonoscopy in 2020 he did have a tubular adenoma
Likely will prep him over the weekend for colonoscopy on Tuesday and start him on a bowel regimen in the interim
CT also shows possible cirrhosis may be related to metabolic syndrome will need workup as outpatient. His LFTs on admission showed mildly elevated alkaline phosphatase level and otherwise unremarkable. CT done without contrast did not show any
obvious liver mass.
Subjective
Subjective
Date of Service: August 07, 2025
He had black bowel movement yesterday, he received 1 unit of packed red blood cells yesterday and hemoglobin remained stable, He complained of abdominal pain earlier and had a CAT scan which showed fecal impaction, no obstruction and also incidental
finding of cirrhosis was noted
Objective
Data Reviewed
Laboratory Data:
Laboratory Results
08/07/25 08:14
08/07/25 08:14
Laboratory Results
PT 16.4 Sec (11.4-14.6) H 08/07/25 08:14
INR 1.27 08/07/25 08:14
APTT 29.7 Sec (23.4-35.0) 08/07/25 10:25
Total Bilirubin 0.7 mg/dl (0.2-1.3) 08/06/25 05:13
AST 36 U/L (17-59) 08/06/25 05:13
ALT 33 U/L (0-50) 08/06/25 05:13
Alkaline Phosphatase 129 U/L (38-126) H 08/06/25 05:13
08/07/2025 Ct abd and pelvis with oral no IV
IMPRESSION: Patchy areas of linear and groundglass opacity within the visualized lower lungs, similar appearance to prior CT examination, most likely representing linear atelectasis and/or scarring.
Morphology and contour of the liver suggestive of cirrhosis. No evidence for hepatic mass lesion. There is no splenomegaly and no evidence for ascites.
Severe atrophy of both kidneys, in this patient with a history of hemodialysis.
Mild to moderate distention of the rectum with stool, transverse dimension of 5.5 cm, with no findings to suggest stercoral colitis. No evidence for bowel obstruction and no evidence of free intraperitoneal air.
Vital Signs and I&O:
Vital Signs
Temp Pulse Resp BP Pulse Ox
97.5 F 79 16 86/53 100
08/07/25 11:15 08/07/25 12:37 08/07/25 11:15 08/07/25 12:37 08/07/25 14:56
I&O
08/06/25 08/07/2525
06:59 06:59 06:59
Intake Total 1390 / 1390
Balance 1390 / 1390
Physical Exam
Physical Exam
Cardiology: Irregular Rate/Rhythm and Other (Mechanical heart sounds with murmur)
Pulmonary: Clear
GI: Soft, Non Distended, Normal Bowel Sounds and Other (Tenderness with superficial palpation)
[2025-08-07 16:00] VITALS: BP 111/65
[2025-08-07 18:40] LABS: Glucose - Point of Care 96 mg/dl (70-99)
[2025-08-07 19:26] LABS: APTT 40.2 Sec (23.4-35.0)
[2025-08-07] MEDS: MIRALAX PO (20:12)
[2025-08-07 20:22] VITALS: BP 104/56
[2025-08-07] MEDS: NEURONTIN 300 MG PO (22:10)
[2025-08-07] MEDS: SENOKOT PO (22:12)
[2025-08-07 22:37] LABS: Glucose - Point of Care 100 mg/dl (70-99)
[2025-08-07 23:39] VITALS: BP 100/52
[2025-08-07] MEDS: DESYREL 150 MG PO (23:51)
[2025-08-08] VITALS (13 sets, daily range): BP systolic 18–104; BP diastolic 49–65; BMI 31.9
[2025-08-08] MEDS: ULTRAM 25 MG PO ×2 (00:34→23:54)
[2025-08-08 02:39] LABS: APTT 106.3 Sec (23.4-35.0)
[2025-08-08 06:14] LABS: Glucose - Point of Care 111 mg/dl (70-99)
[2025-08-08] MEDS: SYNTHROID 112 MCG PO (06:45)
[2025-08-08] MEDS: SYNTHROID 100 MCG PO (06:45)
[2025-08-08 07:21] LABS: Hematocrit 21.5 % (39.0-52.0); Hemoglobin 7.2 g/dL (13.0-18.0); Mean Corp Hgb Conc. 33.5 g/dL (33.0-37.0); Mean Corpuscular Volume 88.5 fL (80.0-94.0); Platelet Count 147 10^3/uL (130-400); Red Cell Dist. Width 15.9 % (11.5-14.5)
[2025-08-08] MEDS: FLOVENT 110 MCG INHALER 2 PUFF INH ×2 (07:42→19:59)
[2025-08-08 07:52] LABS: Glucose - Point of Care 108 mg/dl (70-99)
[2025-08-08 07:53] LABS: Blood Urea Nitrogen 34 mg/dl (9-20); Calcium 7.9 mg/dl (8.4-10.2); Carbon Dioxide 24 mmol/L (22-30); Chloride 98 mmol/L (98-107); Estimated Creatinine Clearance 18 ml/min; Glucose 86 mg/dl (70-99); Magnesium 2.0 mg/dl (1.6-2.3); Potassium 4.1 mmol/L (3.5-5.1); Sodium 133 mmol/L (135-145); eGFR 10.61
[2025-08-08] MEDS: PROTONIX IV 40 MG IV ×2 (09:42→21:45)
[2025-08-08] MEDS: NSS (PRESERVATIVE FREE) 10 ML IV ×2 (09:43→21:45)
[2025-08-08 11:23] LABS: Iron 93 ug/dl (49-181)
[2025-08-08 11:37] LABS: Total Iron Binding Capacity 246 ug/dl (261-462)
--- NOTE | 2025-08-08 12:16 | W.PN.NEPH.PH ---
Today's Communication / Plan
-
For 1 unit of blood today
Dialysis tomorrow
EGD today
Assessment/Plan
-
Impression:
End-stage renal disease.
AV graft bleed
GI bleed
Anemia.
Chronic hypotension on midodrine support
Hyperphosphatemia.
mechanical aortic valve on chronic anticoagulation
AFib.
Plan:
HD tomorrow,orders provided
Hemoglobin remains low at 7.2 for repeat blood transfusion to
midodrine continues for bp support on HD
Maintain sevelamer binder therapy for hyperphosphatemia
fluid restriction and dietary restrictions directed for ESRD
TIO on HD
Vascular surgery evaluation of AV graft no intervention required
Holding Coumadin, now on heparin gtt
CT scan of abdomen and pelvis reviewed no obvious hematoma or other acute intra-abdominal finding
Follow hemoglobin
-
-
Date of Service: August 08, 2025
CC / HPI / ROS
-
Chief Complaint:
ESRD
History of Present Illness:
ESRD Tuesday
Chronically hemodynamically labile on midodrine support
Hemoglobin down to 7.2
Review of Systems:
No chest pain
Chronic O2 requirement
Abdominal discomfort
Labs
-
Labs:
WBC 8.8 10^3/uL (4.8-10.8) 08/08/25 06:18
RBC 2.43 10^6/uL (4.70-6.10) L 08/08/25 06:18
Hgb 7.2 g/dL (13.0-18.0) L 08/08/25 06:18
Hct 21.5 % (39.0-52.0) L 08/08/25 06:18
Plt Count 147 10^3/uL (130-400) 08/08/25 06:18
Sodium 133 mmol/L (135-145) L 08/08/25 06:18
Potassium 4.1 mmol/L (3.5-5.1) 08/08/25 06:18
Chloride 98 mmol/L (98-107) 08/08/25 06:18
Carbon Dioxide 24 mmol/L (22-30) 08/08/25 06:18
BUN 34 mg/dl (9-20) H 08/08/25 06:18
Creatinine 6.0 mg/dL (0.7-1.3) H* 08/08/25 06:18
eGFR 10.61 08/08/25 06:18
Glucose 86 mg/dl (70-99) 08/08/25 06:18
Calcium 7.9 mg/dl (8.4-10.2) L 08/08/25 06:18
Etc-K-Bhzpmamwxej Pept Cancelled 08/08/25 09:32
Albumin 3.9 g/dl (3.5-5.0) 08/06/25 05:13
Physical Exam
-
Vital Signs:
Vital Signs
Temp Pulse Resp BP Pulse Ox
97.8 F 107 20 94/64 100
08/08/25 12:04 08/08/25 12:04 08/08/25 12:04 08/08/25 12:04 08/08/25 12:04
Cardiovascular:: Regular rate and rhythm
Respiratory:: Bilateral: Coarse
Lung Excursion:: Normal
Abdomen:: Nontender
Bowel Sounds:: Normal
Extremity Edema:: +1: Bilateral:
Fang Catheter: No
[2025-08-08] MEDS: FLORINEF 0.1 MG PO (12:23)
[2025-08-08] MEDS: LAMICTAL 200 MG PO ×2 (12:23→20:22)
[2025-08-08 12:29] LABS: Glucose - Point of Care 109 mg/dl (70-99)
[2025-08-08] MEDS: MIRALAX PO ×2 (12:30→20:22)
--- NOTE | 2025-08-08 12:47 | W.PN.HOSP.TC ---
Today's Communication/Plan
-
see plan
Assessment / Plan
Assessment / Plan
49-year-old with complex past medical history including end-stage renal disease on hemodialysis via left upper extremity AV fistula, chronic hypoxic respiratory failure on home O2, obstructive sleep apnea, congestive heart failure, chronic anemia,
atrial fibrillation, mechanical mitral valve replacement on anticoagulation with warfarin who presents to the emergency department with complaints of bleeding from fistula site after hemodialysis in the setting of supratherapeutic INR to 7.6 on
Tuesday, also reports approximately 3 days of bloody bowel movements. He was found to be hypotensive, in rapid afib with RVR.
EGD 08/08/25
Impression:
- Normal esophagus. no esophageal varices seen
- Multiple gastric polyps. Biopsied. Clip was placed to stop
oozing at biopsy site. 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
- Portal hypertensive gastropathy. no gastric varices seen.
- One non-bleeding angioectasia in the duodenum.
Recommendation:
- Continue present medications.
- restart Heparin in 6 hours
- colonoscopy Tuesday with 2 day prep over the weekend and if
negative needs capsule endoscopy
Hematochezia in setting of supratherapeutic INR
-s/p 5mg PO vitamin K in the ER with reversal of Coumadin
-s/p EGD this AM without finding of varices, multiple gastric polyps, one non-bleeding angioectasis in duodenum
-plan is for colonoscopy Tuesday with 2 day prep over weekend
-continue PPI
Acute Blood Loss Anemia
-s/p 1 unit PRBC on admission, transfuse additional unit today
Mechanical Mitral Valve
-goal INR 2.5-3
-Cardiology consulted to help guide bridging therapy
-continue IV Heparin gtt for briding - OK to resume 5PM (6 hours post EGD)
Bleeding AV fistula - Hemostasis acheived
- vascular consulted, fistula u/s study with patent graft; small nonocclusive thrombus without significant stenosis
- no need for intervention unless bleeds again in setting of therapeutic INR
Atrial fibrillation - permanent afib on coumadin. Not currently on rate agent.
End-stage renal disease
-appreciate renal consult
-HD MWF
Chronic Hypoxia - JOVITA, CHF (no acute exacerbation)
- stable on 3 L O2. No CPAP.
Chronic orthostatic hypotension
- continue midodrine/fludrocortisone
Sz d/o
- lamictal continued
Hypothyroid
- on levothyroxine
Diabetes
- diet controlled, sliding scale insulin
DVT PPX - SCD
Code status - Full code
51 minutes spent on patient care
Anticipated Discharge: > 48 hours
Subjective/Interval History
-
Date of Service: August 08, 2025
post EGD
very hungry
having multiple BM
Objective Data
-
Labs:
Laboratory Results
08/08/25 08/08/25
02:18 06:18
WBC 8.8
Hgb 7.2 L
Hct 21.5 L
Plt Count 147
APTT 106.3 H
Sodium 133 L
Potassium 4.1
Chloride 98
Carbon Dioxide 24
BUN 34 H
Creatinine 6.0 H*
Glucose 86
Calcium 7.9 L
Vital Signs:
Vital Signs
Temp Pulse Resp BP Pulse Ox
97.8 F 107 20 94/64 100
08/08/25 12:04 08/08/25 12:04 08/08/25 12:04 08/08/25 12:04 08/08/25 12:04
I&O
08/07/25 08/08/25 08/09/25
06:59 06:59 06:59
Intake Total 1390 / 1390 960 / 960
Balance 1390 / 1390 960 / 960
Review of Systems
-
History Source: Patient
All other systems: Reviewed and negative
Physical Exam
-
General: Well Developed and No Apparent Distress
HEENT: PERRLA
Respiratory: Clear to Auscultation
Cardiac: Regular Rhythm and S1/S2
GI: Soft, Nontender and Nondistended
Musculoskeletal: No Edema
Neuro: Awake, Alert and Oriented
Psych: Calm
Data Reviewed
-
Diagnostic Radiology: Report Reviewed by me
Labs: Labs Reviewed by me
--- NOTE | 2025-08-08 12:55 | W.PN.CARDCBS ---
Addendum entered and electronically signed by Herminio John MD 08/08/25 12:59:
Agree with transfusion
Colonoscopy Tuesday, continue heparin until that time
Original Note:
Today's Communication / Plan
-
Await EGD
Check echo and proBNP
Restart warfarin when able, heparin bridge
Impression / Plan
-
PCP: Dr. Flores at [facility]
Primary Professional Nurse: last seen in the office by Dr. Lovell in 2018
Assessment:
Admitted with bleeding fistula and GIB 08/06
Previous admission for HD fistula bleeding 09/10/24 until 09/14/2024 s/p fistula revision 09/13/24
s/p left forearm AV fistula
Revision 09/13/2024
Revision 12/20/2024
Anemia, multifactorial
Permanent atrial fibrillation
Recovered NICM, EF was 25-30% by echo 05/26/22, then 50% by echo 09/13/24
Chronic HFrEF
s/p SJM Mechanical MVR 1997
Chronic Coumadin therapy
Severe tricuspid regurgitation
h/o ICD explant due to infection 2005
HTN
ESRD on HD MWF
h/o CVA, by review of CT head with an area of encephalomalacia involving the right anterolateral frontal lobe 07/2015
Obstructive sleep apnea
Former smoker
ECHO 06/2018: Global hypokinesis, most marked in anterior and septal segments, EF 35 to 40%, normal function of mechanical MVR with peak/mean gradients 19/7 mmHg, no MR, dilated left atrium, dilated right ventricle, moderate TR, moderate pulmonary
hypertension, PAP 52 to 57 mmHg, atrial septal aneurysm
Echo 05/26/22: EF 25-30%, mechanical mitral valve with peak/mean 13/5 mmHg and no MR, aortic valve is normal, dilated and hypokinetic RV with dilated RA and mod MR with PAP 50-55 mmHg
ECHO 11/7/24: EF 50%, mild concentric LVH, flattened septum in systole and diastole consistent with RV pressure and volume overload, well-seated mechanical mitral valve with mean gradient 6 mmHg, mild to moderate TR, PAP 75 to 80 mmHg
Plan:
He seems stable from a cardiac standpoint. For EGD later today.
On IV heparin and presents, INR yesterday was 1.27. Will restart warfarin when okay with GI. Okay to interrupt heparin for procedures.
No obvious bleeding from AV fistula. He had dialysis yesterday.
His ventricular response to atrial fibrillation/flutter is relatively rapid. Consider addition of renally dosed digoxin or amiodarone for rate control. Poor candidate for beta-brian etc. for better rate control given blood pressure.
Check proBNP. He had severe pulmonary hypertension last year, will also recheck echo.
Clinical summary: Patient came to the ER today with a bleeding fistula, dark blood in his stools and an elevated INR, cardiology is consulted due to the need for warfarin OAC in the setting of mechanical MVR. Patient is originally from [facility]
[place] and has a complicated past medical history spread out over the [facility]. He had a mechanical mitral valve while living in [place], [place] in 1997. He says this was for a history rheumatic heart disease as a child. Then sometime around 2008
he moved to [place], [place] with his and around that time he says he had a marked deterioration in his renal function and was started on hemodialysis in response to hypertensive nephropathy. He says that since then he had chronic
infections related to his hemodialysis port. During an admission to [facility] in 2014 he required a trach. With the addition of trach to his dialysis, he could only be transferred to [facility] (now [facility]). He has
been there ever since even though his trach was removed. Patient lives in a 4 bedroom unit at [facility] where he is a long-term resident and travels by [place] 3x a week for HD sessions. All of his family lives in [place], and his has since
him, he has not been visited by family in years. Afib is permanent and patient says he can hear his heart beat due to mechanical valve, but no palpitations. Patient thinks he had a cardiac arrest while admitted to [facility] years ago that was
related to amiodarone. He was on digoxin in 2015, but it was stopped for unclear reasons. Patient says he has chest pain, he has chronic chest pain. INR was 6.52 on admission this morning and he says INRs are checked every Tuesday with INR goal of
2.5 to 3.5. Vascular surgery evaluated patient and they graft is patent without obvious stenosis and bleeding thought to be from supratherapeutic INR and so no surgical intervention recommended. GI will see patient as well.
Progress Note - Professional Nurse
Subjective
Date of Service: August 08, 2025:
49-year-old man with Saint Jefry mechanical mitral valve for rheumatic heart disease and end-stage renal disease on hemodialysis. Admitted with GI bleeding and bleeding from fistula in the setting of INR of 6.5.
PMH: History of respiratory failure, prior trach,, permanent atrial fibrillation, Saint Jefry mechanical mitral valve 1997, orthostatic hypotension, radiated, cardiomyopathy with recovered EF, severe tricuspid regurgitation, remote ICD implant,
explanted for infection, hypertension, history of CVA with encephalomalacia right frontal lobe, sleep apnea, remote smoker, seizure disorder, diet-controlled diabetes, hypothyroidism, severe pulmonary hypertension
Current meds: IV heparin, Wellbutrin, Zyrtec, fludrocortisone, gabapentin, Lamictal, levothyroxine, midodrine 10 mg every 6, trazodone 150 mg at bedtime, pantoprazole 40 IV every 12, levothyroxine 112 mcg daily, MiraLAX, Senokot, insulin,
For EGD later today
96/60, pulse 112, respiratory rate 16, afebrile, weight is 106.7 kg, -0.4 kg, pleasant, no acute distress, states he is mildly short of breath however, head neck exam unremarkable, lungs are clear, irregular rate and rhythm, fairly tachycardic,
prosthetic first heart sound, some tenderness left upper quadrant, fistula left upper extremity 1+ edema, weakness in legs, states he is unable to walk
Creatinine is 6, BUN is 34
Hemoglobin is 7.2, had been 7.7, was 7.3 on admission
ECG yesterday: A flutter low voltage nonspecific ST and T wave changes, rate is reasonable
Echo 09/13/2024: EF 50%, mild LVH, flat septum, mitral valve gradient 6, mild to moderate TR, pulmonary pressure is 75 mmHg
ECHO 06/2018: Global hypokinesis, most marked in anterior and septal segments, EF 35 to 40%, normal function of mechanical MVR with peak/mean gradients 19/7 mmHg, no MR, dilated left atrium, dilated right ventricle, moderate TR, moderate pulmonary
hypertension, PAP 52 to 57 mmHg, atrial septal aneurysm
Echo 05/26/22: EF 25-30%, mechanical mitral valve with peak/mean 13/5 mmHg and no MR, aortic valve is normal, dilated and hypokinetic RV with dilated RA and mod MR with PAP 50-55 mmHg
ECHO 09/13/24: EF 50%, mild concentric LVH, flattened septum in systole and diastole consistent with RV pressure and volume overload, well-seated mechanical mitral valve with mean gradient 6 mmHg, mild to moderate TR, PAP 75 to 80 mmHg
Plan:
Objective
Labs:
08/08/25 06:18
08/08/25 06:18
Labs
Hgb 7.2 g/dL (13.0-18.0) L 08/08/25 06:18
Hct 21.5 % (39.0-52.0) L 08/08/25 06:18
Plt Count 147 10^3/uL (130-400) 08/08/25 06:18
PT 16.4 Sec (11.4-14.6) H 08/07/25 08:14
INR 1.27 08/07/25 08:14
APTT 106.3 Sec (23.4-35.0) H 08/08/25 02:18
Sodium 133 mmol/L (135-145) L 08/08/25 06:18
Potassium 4.1 mmol/L (3.5-5.1) 08/08/25 06:18
BUN 34 mg/dl (9-20) H 08/08/25 06:18
Creatinine 6.0 mg/dL (0.7-1.3) H* 08/08/25 06:18
Glucose 86 mg/dl (70-99) 08/08/25 06:18
Vital Signs and I&O:
Vital Signs
Temp Pulse Resp BP Pulse Ox
36.6 C 107 20 94/64 100
08/08/25 12:04 08/08/25 12:04 08/08/25 12:04 08/08/25 12:04 08/08/25 12:04
Vital Signs
Temp Pulse Resp BP Pulse Ox
36.6 C 107 20 94/64 100
08/08/25 12:04 08/08/25 12:04 08/08/25 12:04 08/08/25 12:04 08/08/25 12:04
Intake & Output
08/06/25 08/07/25 08/08/25 08/09/25
07:59 07:59 07:59 07:59
Intake Total 1390 / 1390 960 / 960
Balance 1390 / 1390 960 / 960
Physical Exam
Physical Exam
See above
--- NOTE | 2025-08-08 13:05 | CM ---
Patient chart reviewed
ESRD - M-W-F 7am chair at [facility]
hgb 7.2
EGD today
colonoscopy Tuesday
updated Myra liaison
PLAN: Return to [facility] when medically stable, CM to continue to follow
[facility]
Report #: [phone]
Fax #: [phone]
[facility] fax #: [phone]
--- NOTE | 2025-08-08 15:46 | CARDSERVLU ---
Echocardiogram with Lumason completed after protocol screening completed. Allergies verified.
Patent IV site: ___R wrist__
IV site flushed with 0.9% NaCl pre and post administration.
Diluted bolus method utilized to enhance visualization of ventricular dawkins.
Total volume given: __3__ mL
Patient tolerated all [id number] well without complications.
[2025-08-08 15:52] LABS: Ferritin 816.0 ng/ml (17.9-464.0)
[2025-08-08 16:23] LABS: Folate > 20.0 ng/ml (2.76-20); Vitamin B12 678 pg/ml (239-931)
[2025-08-08 16:30] LABS: Glucose - Point of Care 118 mg/dl (70-99)
--- NOTE | 2025-08-08 17:38 | PTCARENOTE ---
1615 Pt returned from ECHO via stretcher, and put back to bed with assist of three staff. Upon getting pt in bed went to flush IV line and it was noted to some leak to left forearm. Pt reports pain upon flushing. Upon assessment of second line pt
reports pain to left hand IV access. Will notify IV team.
--- NOTE | 2025-08-08 19:32 | PTCARENOTE ---
1 unit of PRBC infusing per order via right upper arm midline. Pt tolerating well. Report and handoff done with oncoming shift.
[2025-08-08 19:58] LABS: Hepatitis B Surface Antigen Negative (Negative)
[2025-08-08 21:01] LABS: Glucose - Point of Care 100 mg/dl (70-99)
[2025-08-08] MEDS: SENOKOT 17.2 MG PO (21:45)
[2025-08-08] MEDS: NEURONTIN 300 MG PO (21:45)
[2025-08-08] MEDS: HEPARIN 25000 UNITS/250 ML IV (23:07)
[2025-08-09] VITALS (7 sets, daily range): BP systolic 89–113; BP diastolic 42–67; BMI 30.8
[2025-08-09] MEDS: DESYREL 150 MG PO
[2025-08-09 00:47] LABS: Hematocrit 23.6 % (39.0-52.0); Hemoglobin 7.7 g/dL (13.0-18.0)
[2025-08-09 00:55] LABS: APTT 80.1 Sec (23.4-35.0)
[2025-08-09] MEDS: SYNTHROID 100 MCG PO (05:45)
[2025-08-09] MEDS: SYNTHROID 112 MCG PO (05:45)
[2025-08-09 06:24] LABS: Hematocrit 23.7 % (39.0-52.0); Hemoglobin 7.9 g/dL (13.0-18.0); Mean Corp Hgb Conc. 33.3 g/dL (33.0-37.0); Mean Corpuscular Volume 88.8 fL (80.0-94.0); Platelet Count 146 10^3/uL (130-400); Red Cell Dist. Width 16.4 % (11.5-14.5)
[2025-08-09 06:41] LABS: APTT 118.9 Sec (23.4-35.0)
[2025-08-09 06:55] LABS: Albumin 3.7 g/dl (3.5-5.0); Blood Urea Nitrogen 39 mg/dl (9-20); Calcium 7.8 mg/dl (8.4-10.2); Carbon Dioxide 24 mmol/L (22-30); Chloride 98 mmol/L (98-107); Estimated Creatinine Clearance 14 ml/min; Glucose 97 mg/dl (70-99); Potassium 3.9 mmol/L (3.5-5.1); Sodium 132 mmol/L (135-145); eGFR 7.63
[2025-08-09] MEDS: FLORINEF 0.1 MG PO (07:33)
[2025-08-09] MEDS: EMLA CREAM 5 GRAM TOPICAL (07:33)
[2025-08-09] MEDS: LAMICTAL 200 MG PO ×2 (07:33→20:58)
[2025-08-09] MEDS: WELLBUTRIN SR (12 hour sustained release) 150 MG PO (07:33)
[2025-08-09] MEDS: MIRALAX PO ×2 (07:33→20:58)
[2025-08-09] MEDS: ZYRTEC 5 MG PO (07:33)
[2025-08-09] MEDS: PROTONIX IV 40 MG IV (07:34)
[2025-08-09] MEDS: NSS (PRESERVATIVE FREE) 10 ML IV (07:34)
[2025-08-09 08:07] LABS: Glucose - Point of Care 119 mg/dl (70-99)
[2025-08-09] MEDS: NOVOLOG FLEXPEN-LOW RESISTANCE SC ×2 (08:14→11:52)
[2025-08-09] MEDS: FLOVENT 110 MCG INHALER 2 PUFF INH ×2 (08:29→20:06)
[2025-08-09] MEDS: RETACRIT 10000 UNITS IV (09:56)
[2025-08-09] MEDS: FLEXBUMIN 25% FOR HEMODIALYSIS 12.5 GRAMS IV (10:23)
[2025-08-09] MEDS: MANNITOL 25% 12.5 GRAMS IV (10:29)
--- NOTE | 2025-08-09 10:59 | W.PN.HOSP.TC ---
Today's Communication/Plan
-
IV Heparin gtt
prep over weekend
appreciate consultants
Assessment / Plan
Assessment / Plan
49-year-old with complex past medical history including end-stage renal disease on hemodialysis via left upper extremity AV fistula, chronic hypoxic respiratory failure on home O2, obstructive sleep apnea, congestive heart failure, chronic anemia,
atrial fibrillation, mechanical mitral valve replacement on anticoagulation with warfarin who presents to the emergency department with complaints of bleeding from fistula site after hemodialysis in the setting of supratherapeutic INR to 7.6 on
Tuesday, also reports approximately 3 days of bloody bowel movements. He was found to be hypotensive, in rapid afib with RVR.
EGD 08/08/25
Impression:
- Normal esophagus. no esophageal varices seen
- Multiple gastric polyps. Biopsied. Clip was placed to stop
oozing at biopsy site. Clip production reproduction manager: Macheen.
- Portal hypertensive gastropathy. no gastric varices seen.
- One non-bleeding angioectasia in the duodenum.
Recommendation:
- Continue present medications.
- restart Heparin in 6 hours
- colonoscopy Tuesday with 2 day prep over the weekend and if
negative needs capsule endoscopy
Hematochezia in setting of supratherapeutic INR
-s/p 5mg PO vitamin K in the ER with reversal of Coumadin
-s/p EGD morning i10 without finding of varices, multiple gastric polyps, one non-bleeding angioectasis in duodenum
-plan is for colonoscopy Tuesday with 2 day prep over weekend
-continue PPI
Acute Blood Loss Anemia
-s/p 1 unit PRBC on admission, transfuse additional unit today
Mechanical Mitral Valve
-goal INR 2.5-3
-Cardiology consulted to help guide bridging therapy
-continue IV Heparin gtt for bridging
Bleeding AV fistula - Hemostasis achieved
- vascular consulted, fistula u/s study with patent graft; small nonocclusive thrombus without significant stenosis
- no need for intervention unless bleeds again in setting of therapeutic INR
Atrial fibrillation - permanent afib on coumadin. Not currently on rate agent.
End-stage renal disease
-appreciate renal consult
-HD MWF
Chronic Hypoxia - JOVITA, CHF (no acute exacerbation)
- stable on 3 L O2. No CPAP.
Chronic orthostatic hypotension
- continue midodrine/fludrocortisone
Sz d/o
- lamictal continued
Hypothyroid
- on levothyroxine
Diabetes
- diet controlled, sliding scale insulin
DVT PPX - SCD
Code status - Full code
51 minutes spent on patient care
Anticipated Discharge: > 48 hours
Subjective/Interval History
-
Date of Service: August 09, 2025
seen on dialysis, no new complaints
Objective Data
-
Labs:
Laboratory Results
08/09/25 08/09/25 08/09/25
00:26 06:07 13:15
WBC 9.1
Hgb 7.7 L 7.9 L
Hct 23.6 L 23.7 L
Plt Count 146
APTT 80.1 H 118.9 H Pending
Sodium 132 L
Potassium 3.9
Chloride 98
Carbon Dioxide 24
BUN 39 H
Creatinine 7.9 H*
Glucose 97
Calcium 7.8 L
Vital Signs:
Vital Signs
Temp Pulse Resp BP Pulse Ox
98.1 F 102 18 113/57 97
08/09/25 07:00 08/09/25 08:35 08/09/25 08:35 08/09/25 07:00 08/09/25 10:03
I&O
08/08/25 08/09/25 08/10/25
06:59 06:59 06:59
Intake Total 960 / 960 634 / 634 480 / 480
Balance 960 / 960 634 / 634 480 / 480
Review of Systems
-
History Source: Patient
All other systems: Reviewed and negative
Physical Exam
-
General: Well Developed and No Apparent Distress
HEENT: PERRLA
Respiratory: Clear to Auscultation
Cardiac: Regular Rhythm and S1/S2
GI: Soft, Nontender and Nondistended
Musculoskeletal: No Edema
Neuro: Awake, Alert and Oriented
Psych: Calm
Data Reviewed
-
Diagnostic Radiology: Report Reviewed by me
Labs: Labs Reviewed by me
[2025-08-09 11:51] LABS: Glucose - Point of Care 106 mg/dl (70-99)
[2025-08-09 11:59] LABS: APTT 88.4 Sec (23.4-35.0)
--- NOTE | 2025-08-09 12:15 | W.PN.NEPH.HD ---
Assessment
-
pt seen during HD
vitals stable
UF as tolerates
on heparin gtt, stable hb
for C scope on Tuesday
AVF functions well
Progress Note - Hemodialysis
-
Date of Service: August 09, 2025
Duration: 45 minutes and 3 hours
Potassium Bath: 2
Calcium Bath: 2.5
Opti-Dialyzer: 160
Ultrafiltration: Other (2kg)
Blood Flow: 400
Dialysate Flow: 600
Heparin: no
EPO: [id number]
--- NOTE | 2025-08-09 12:43 | CM ---
CM following for discharge planning. Pt will remain at through the weekend.
PLAN: Return to [facility] when medically stable, CM to continue to follow
[facility]
Report #: [phone]
Fax #: [phone]
[facility] fax #: [phone]
--- NOTE | 2025-08-09 12:44 | W.PN.CARDCBS ---
Addendum entered and electronically signed by Herminio John MD 08/09/25 17:50:
Unfortunate 49-year-old man with Saint Jefry mitral valve replacement in 1997 on warfarin, admitted with coagulopathy INR 6.5 on warfarin, bleeding from left forearm fistula and GI bleed 08/06/2025
PMH/PSH: Stage renal disease, permanent atrial fibrillation, history of ICD implant and subsequent explant, chronic HFrEF, severe pulmonary hypertension 80 mmHg systolic, severe tricuspid regurgitation, nonischemic cardiomyopathy with improved EF,
longstanding anemia, history of CVA, obstructive sleep apnea, former smoker
113/57, pulse 102, respiratory rate 18, afebrile, weight is 103.1 kg, if accurate down 3.6 kg, diminished breath sounds on left, tachycardic, prosthetic first heart sounds, somewhat irregular, abdomen obese extremity with weakness bilaterally and
some edema, left upper extremity fistula
EGD yesterday: Small sessile esophageal gastric polyps, portal hypertensive gastropathy, small angioectasia, no esophageal varices
Hemoglobin 7.9, had been 7.7, BUN and creatinine are 39 and 7.9, potassium 3.9, sodium 132, proBNP 21,700
Echo: Small LV, global hypokinesis, septal flattening, EF 45-50%, Saint Jefry mitral prosthesis, suspected mild mitral regurgitation, peak/mean gradient 16/7 mmHg, normal aortic valve, dilated hypokinetic RV dilated RA, severe tricuspid
regurgitation, pulmonary artery systolic pressure 79 mmHg
Imp:
Admitted with bleeding fistula and GIB 08/06/2025
Previous admission for HD fistula bleeding 09/10/24 until 09/14/2024 s/p fistula revision 09/13/24
s/p left forearm AV fistula
Revision 09/13/2024
Revision 12/20/2024nemia, multifactorial
Permanent atrial fibrillation
Recovered NICM, EF was 25-30% by echo 05/26/22, then 50% by echo 09/13/24
Chronic HFrEF
s/p SJM Mechanical MVR 1997
Chronic Coumadin therapy
Severe tricuspid regurgitation
h/o ICD explant due to infection 2005
HTN
ESRD on HD MWF
h/o CVA, by review of CT head with an area of encephalomalacia involving the right anterolateral frontal lobe 07/2015
Obstructive sleep apnea
Former smoker
Plan:
He seems relatively stable from a cardiac standpoint despite severe pulmonary hypertension, hypotension, and mildly reduced EF. However proBNP is 21,700, and his rate is rapid in an atypical atrial flutter.
Options for rate control are limited, amiodarone versus digoxin as a starting point. Long-term, especially given his youth, I think digoxin may be a better starting point. Will need to dose digoxin appropriately and monitor level closely given
ESRD.
Continue heparin for now. Colonoscopy on Tuesday. Restart warfarin at that time.
Otherwise no change in medications.
Original Note:
Today's Communication / Plan
-
HD today
Colonoscopy 08/12
Add low dose dig today
Continue IV heparin drip while patient off Coumadin. Resume Coumadin when no GI procedures scheduled
wean O2 as tolerated
Impression / Plan
-
PCP: Dr. Flores at [facility]
Primary Client Relations Representative: last seen in the office by Dr. Lovell in 2018
Assessment:
Admitted with bleeding fistula and GIB 08/06/2025
Previous admission for HD fistula bleeding 09/10/24 until 09/14/2024 s/p fistula revision 09/13/24
s/p left forearm AV fistula
Revision 09/13/2024
Revision 12/20/2024
Anemia, multifactorial
Permanent atrial fibrillation
Recovered NICM, EF was 25-30% by echo 05/26/22, then 50% by echo 09/13/24
Chronic HFrEF
s/p SJM Mechanical MVR 1997
Chronic Coumadin therapy
Severe tricuspid regurgitation
h/o ICD explant due to infection 2005
HTN
ESRD on HD MWF
h/o CVA, by review of CT head with an area of encephalomalacia involving the right anterolateral frontal lobe 07/2015
Obstructive sleep apnea
Former smoker
ECHO 06/2018: Global hypokinesis, most marked in anterior and septal segments, EF 35 to 40%, normal function of mechanical MVR with peak/mean gradients 19/7 mmHg, no MR, dilated left atrium, dilated right ventricle, moderate TR, moderate pulmonary
hypertension, PAP 52 to 57 mmHg, atrial septal aneurysm
Echo 05/26/22: EF 25-30%, mechanical mitral valve with peak/mean 13/5 mmHg and no MR, aortic valve is normal, dilated and hypokinetic RV with dilated RA and mod MR with PAP 50-55 mmHg
ECHO 09/13/24: EF 50%, mild concentric LVH, flattened septum in systole and diastole consistent with RV pressure and volume overload, well-seated mechanical mitral valve with mean gradient 6 mmHg, mild to moderate TR, PAP 75 to 80 mmHg
Echo 08/08/2025: EF 45 to 50%. Hypokinetic RV, dilated right atrium. Saint Jefry mechanical valve with peak/mean gradient 16/7 mmHg with mild MR. Severe tricuspid regurgitation with PAP 79 mmHg. Echo similar to September 2024
Plan:
He seems stable from a cardiac standpoint.
Ongoing anemia, received 2 units of blood this admission 1 unit on 08/06/25 with additional unit 08/08/25.
EGD on 08/08/2025 showed normal esophagus, multiple gastric polyps which were biopsied, non-bleeding angioectasia in the duodenum but no evidence of bleeding.
Plan is for colonoscopy on 08/12/2025
Continue IV heparin given history of mechanical mitral valve. Will restart warfarin when okay with GI. Okay to interrupt heparin for procedures.
No obvious bleeding from AV fistula. Undergoing dialysis today
His ventricular response to atrial fibrillation/flutter is relatively rapid. Will try low-dose digoxin patient got 250 mcg IV 08/09/2025 followed by 62.5 mcg po and assess response. Another option would be amiodarone for rate control. Poor
candidate for beta-brian etc. for better rate control given blood pressure.
ProBNP 21,700 (08/08/2025). Ongoing volume removal through dialysis
Echo from 08/08/2025 with a EF of 45 to 50% with severe tricuspid regurgitation and severe pulmonary hypertension and PAP 79 mmHg which is similar to prior echo
Clinical summary: Patient came to the ER today with a bleeding fistula, dark blood in his stools and an elevated INR, cardiology is consulted due to the need for warfarin OAC in the setting of mechanical MVR. Patient is originally from [facility]
[place] and has a complicated past medical history spread out over the [facility]. He had a mechanical mitral valve while living in [place], [place] in 1997. He says this was for a history rheumatic heart disease as a child. Then sometime around 2008
he moved to [place], [place] with his and around that time he says he had a marked deterioration in his renal function and was started on hemodialysis in response to hypertensive nephropathy. He says that since then he had chronic
infections related to his hemodialysis port. During an admission to [facility] in 2014 he required a trach. With the addition of trach to his dialysis, he could only be transferred to [facility] (now [facility]). He has
been there ever since even though his trach was removed. Patient lives in a 4 bedroom unit at [facility] where he is a long-term resident and travels by [place] 3x a week for HD sessions. All of his family lives in [place], and his has since
him, he has not been visited by family in years. Afib is permanent and patient says he can hear his heart beat due to mechanical valve, but no palpitations. Patient thinks he had a cardiac arrest while admitted to [facility] years ago that was
related to amiodarone. He was on digoxin in 2015, but it was stopped for unclear reasons. Patient says he has chest pain, he has chronic chest pain. INR was 6.52 on admission this morning and he says INRs are checked every Tuesday with INR goal of
2.5 to 3.5. Vascular surgery evaluated patient and they graft is patent without obvious stenosis and bleeding thought to be from supratherapeutic INR and so no surgical intervention recommended. GI will see patient as well.
Progress Note - Client Relations Representative
Subjective
Date of Service: August 09, 2025
Patient seen and examined. Patient resting comfortably in bed on hemodialysis. Reports he still feels his heart beating fast and rapid. Denies shortness of breath
Objective
Labs:
08/09/25 06:07
08/09/25 06:07
Labs
Hgb 7.9 g/dL (13.0-18.0) L 08/09/25 06:07
Hct 23.7 % (39.0-52.0) L 08/09/25 06:07
Plt Count 146 10^3/uL (130-400) 08/09/25 06:07
PT 16.4 Sec (11.4-14.6) H 08/07/25 08:14
INR 1.27 08/07/25 08:14
APTT 88.4 Sec (23.4-35.0) H 08/09/25 11:35
Sodium 132 mmol/L (135-145) L 08/09/25 06:07
Potassium 3.9 mmol/L (3.5-5.1) 08/09/25 06:07
BUN 39 mg/dl (9-20) H 08/09/25 06:07
Creatinine 7.9 mg/dL (0.7-1.3) H* 08/09/25 06:07
Glucose 97 mg/dl (70-99) 08/09/25 06:07
Vital Signs and I&O:
Vital Signs
Temp Pulse Resp BP Pulse Ox
97.8 F 115 18 109/55 98
08/09/25 11:00 08/09/25 11:16 08/09/25 11:00 08/09/25 11:16 08/09/25 11:00
Vital Signs
Temp Pulse Resp BP Pulse Ox
97.8 F 115 18 109/55 98
08/09/25 11:00 08/09/25 11:16 08/09/25 11:00 08/09/25 11:16 08/09/25 11:00
Intake & Output
08/07/25 08/08/25 08/09/25 08/10/25
06:59 06:59 06:59 06:59
Intake Total 1390 / 1390 960 / 960 634 / 634 480 / 480
Balance 1390 / 1390 960 / 960 634 / 634 480 / 480
Physical Exam
Physical Exam
GEN: No distress, awake, Ox3, lying in bed on dialysis
HEENT: supple, anicteric, mmm
LUNGS: Few faint wheezes at bases otherwise CTA, no rales, wearing 3 L of oxygen via nasal cannula
CV: Irregularly irregular, tachycardic, S1/S2, 1/6 LSB murmur
ABD: soft, BS+, NT/ND
EXT: Trace edema, no clubbing or cyanosis
NEURO: Gross non-focal
SKIN: No rash
[2025-08-09] MEDS: LANOXIN 250 MCG IV (13:05)
[2025-08-09 13:56] LABS: APTT 72.1 Sec (23.4-35.0)
[2025-08-09 16:50] LABS: Glucose - Point of Care 159 mg/dl (70-99)
[2025-08-09] MEDS: NOVOLOG FLEXPEN-LOW RESISTANCE 1 UNITS SC (17:44)
[2025-08-09] MEDS: ULTRAM 25 MG PO (17:47)
--- NOTE | 2025-08-09 18:55 | W.PN.GI.CBS2 ---
Today's Communication / Plan
-
bowel regimen over weekend for cscope on Tue
Assessment / Plan
-
This is a 49-year-old male with significant past medical history of ESRD on HD, CVA, COPD on home O2, Valve replacement, afib on Coumadin, who presented to [facility] from nursing facility for prolonged bleeding following HD at left upper
extremity AV graft with melena on presentation in the setting of supratherapeutic anticoagulation INR of 6.5. He says that the dose of Coumadin was recently increased.
#GI bleed with supratherapeutic INR
#Acute blood loss anemia
dark brown heme+ stool in ED c/f GI bleed in the setting of supratherapeutic anticoagulation
upper GI source versus lower GI source, bleeding could be related to possible angioectasias versus PUD or neoplasm
-History of mitral valve replacement- on warfarin
-Atrial fibrillation
s/p vitamin K INR today 1.27 and started on heparin
Total of 2UPRBC given
Continue PPI - will change to po daily
Follow H&H closely
CT shows possible fecal impaction will give a milk of molasses enema - KUB done today showed improved stool burden in rectum compared to CT
Upper endoscopy done August [address] Ferrer showed normal esophagus, no varices, gastric polyp, portal hypertensive gastropathy with no gastric AVMs, 1 nonbleeding angioectasia in the duodenum.
He will need a 2-day prep to clean for the colonoscopy he also had a poor prep on his prior colonoscopy in 2020 he did have a tubular adenoma
Plan cscope on Tuesday - will need to hold heparin gtt prior and needs midodrine prior to procedure
If cscope negative will need capsule
CT also shows possible cirrhosis may be related to metabolic syndrome will need workup as outpatient. His LFTs on admission showed mildly elevated alkaline phosphatase level and otherwise unremarkable. CT done without contrast did not show any
obvious liver mass.
Subjective
Subjective
Date of Service: August 09, 2025
No complaints getting HD
Objective
Data Reviewed
Laboratory Data:
Laboratory Results
08/09/25 06:07
08/09/25 06:07
Laboratory Results
PT 16.4 Sec (11.4-14.6) H 08/07/25 08:14
INR 1.27 08/07/25 08:14
APTT 72.1 Sec (23.4-35.0) H 08/09/25 13:38
Phosphorus 4.0 mg/dl (2.5-4.5) 08/09/25 06:07
Magnesium 2.0 mg/dl (1.6-2.3) 08/08/25 06:18
Total Bilirubin 0.7 mg/dl (0.2-1.3) 08/06/25 05:13
AST 36 U/L (17-59) 08/06/25 05:13
ALT 33 U/L (0-50) 08/06/25 05:13
Alkaline Phosphatase 129 U/L (38-126) H 08/06/25 05:13
Vital Signs and I&O:
Vital Signs
Temp Pulse Resp BP Pulse Ox
98.0 F 107 18 80/49 100
08/09/25 15:00 08/09/25 17:44 08/09/25 15:00 08/09/25 17:44 08/09/25 15:00
I&O
08/08/25 08/09/25 08/10/25
06:59 06:59 06:59
Intake Total 960 / 960 634 / 634 1180 / 1180
Balance 960 / 960 634 / 634 1180 / 1180
Physical Exam
Physical Exam
GI: Non Distended and Non Tender
[2025-08-09 20:18] LABS: APTT 73.1 Sec (23.4-35.0)
[2025-08-09] MEDS: HEPARIN 25000 UNITS/250 ML IV (20:37)
[2025-08-09] MEDS: NEURONTIN 300 MG PO (21:00)
[2025-08-09] MEDS: SENOKOT 17.2 MG PO (21:00)
[2025-08-09 21:30] LABS: Glucose - Point of Care 99 mg/dl (70-99)
[2025-08-10] VITALS (7 sets, daily range): BP systolic 91–116; BP diastolic 58–70; PULSE 86; O2SAT 100; BMI 30.8
[2025-08-10] MEDS: DESYREL 150 MG PO ×2 (00:13→23:57)
[2025-08-10 02:11] LABS: Hematocrit 22.4 % (39.0-52.0); Hemoglobin 7.4 g/dL (13.0-18.0); Mean Corp Hgb Conc. 33.0 g/dL (33.0-37.0); Mean Corpuscular Volume 89.2 fL (80.0-94.0); Platelet Count 154 10^3/uL (130-400); Red Cell Dist. Width 16.9 % (11.5-14.5)
[2025-08-10 02:19] LABS: APTT 52.5 Sec (23.4-35.0)
[2025-08-10] MEDS: SYNTHROID 112 MCG PO (06:05)
[2025-08-10] MEDS: ULTRAM 25 MG PO ×2 (06:05→23:58)
[2025-08-10] MEDS: SYNTHROID 100 MCG PO (06:05)
[2025-08-10] MEDS: FLOVENT 110 MCG INHALER 2 PUFF INH ×2 (08:13→18:16)
[2025-08-10 08:19] LABS: Glucose - Point of Care 96 mg/dl (70-99)
[2025-08-10] MEDS: NOVOLOG FLEXPEN-LOW RESISTANCE SC ×3 (09:08→19:22)
[2025-08-10] MEDS: FLORINEF 0.1 MG PO (09:09)
[2025-08-10] MEDS: PROTONIX 40 MG PO (09:09)
[2025-08-10] MEDS: LAMICTAL 200 MG PO ×2 (09:09→21:56)
[2025-08-10] MEDS: MIRALAX 17 GRAMS PO (09:10)
--- NOTE | 2025-08-10 09:27 | W.PN.CARDCBS ---
Today's Communication / Plan
-
Maintain heparin IV, back to warfarin after GI eval completed
Maintain recently added dig for rate control of AF
Impression / Plan
-
PCP: Dr. Flores at [facility]
Primary Immigration Patrol Inspector: last seen in the office by Dr. Lovell in 2018
Assessment:
Admitted with bleeding fistula and GIB 08/06/2025
Previous admission for HD fistula bleeding 09/10/24 until 09/14/2024 s/p fistula revision 09/13/24
s/p left forearm AV fistula
Revision 09/13/2024
Revision 12/20/2024
Anemia, multifactorial
Permanent atrial fibrillation
Recovered NICM, EF was 25-30% by echo 05/26/22, then 50% by echo 09/13/24
Chronic HFrEF
s/p SJM Mechanical MVR 1997
Chronic Coumadin therapy
Severe tricuspid regurgitation
h/o ICD explant due to infection 2005
HTN
ESRD on HD MWF
h/o CVA, by review of CT head with an area of encephalomalacia involving the right anterolateral frontal lobe 07/2015
Obstructive sleep apnea
Former smoker
ECHO 06/2018: Global hypokinesis, most marked in anterior and septal segments, EF 35 to 40%, normal function of mechanical MVR with peak/mean gradients 19/7 mmHg, no MR, dilated left atrium, dilated right ventricle, moderate TR, moderate pulmonary
hypertension, PAP 52 to 57 mmHg, atrial septal aneurysm
Echo 05/26/22: EF 25-30%, mechanical mitral valve with peak/mean 13/5 mmHg and no MR, aortic valve is normal, dilated and hypokinetic RV with dilated RA and mod MR with PAP 50-55 mmHg
ECHO 09/13/24: EF 50%, mild concentric LVH, flattened septum in systole and diastole consistent with RV pressure and volume overload, well-seated mechanical mitral valve with mean gradient 6 mmHg, mild to moderate TR, PAP 75 to 80 mmHg
Echo 08/08/2025: EF 45 to 50%. Hypokinetic RV, dilated right atrium. [place] Jefry mechanical valve with peak/mean gradient 16/7 mmHg with mild MR. Severe tricuspid regurgitation with PAP 79 mmHg. Echo similar to September 2024
Plan:
Ongoing anemia, received 2 units of blood this admission 1 unit on 08/06/25 with additional unit 08/08/25.
EGD on 08/08/2025 showed normal esophagus, multiple gastric polyps which were biopsied, non-bleeding angioectasia in the duodenum but no evidence of bleeding.
Plan is for colonoscopy on 08/12/2025
Severe pulmonary hypertension, hypotension, and mildly reduced EF. However proBNP is 21,700, and his rate has been rapid in an atypical atrial flutter.
Options for rate control have been limited, amiodarone versus digoxin as a starting point.
Long-term, especially given his youth, trying to avoid amiodarone.
Have initiated digoxin for rate control. Will need to dose digoxin appropriately and monitor level closely given ESRD.
HR has improved, average HR approx 100 bpm
Regarding Saint Jefry mechanical valve as well as atrial fibrillation and overall high thromboembolic risk off of anticoagulation
continue heparin for now, I renewed the order. Colonoscopy on Tuesday. Plan to restart warfarin at that time.
HFmrEF
ProBNP 21,700 (08/08/2025). Ongoing volume removal through dialysis
Clinical summary: Patient came to the ER today with a bleeding fistula, dark blood in his stools and an elevated INR, cardiology is consulted due to the need for warfarin OAC in the setting of mechanical MVR. Patient is originally from [facility]
[place] and has a complicated past medical history spread out over the [facility]. He had a mechanical mitral valve while living in [place], [place] in 1997. He says this was for a history rheumatic heart disease as a child. Then sometime around 2008
he moved to [place], [place] with his and around that time he says he had a marked deterioration in his renal function and was started on hemodialysis in response to hypertensive nephropathy. He says that since then he had chronic
infections related to his hemodialysis port. During an admission to [facility] in 2014 he required a trach. With the addition of trach to his dialysis, he could only be transferred to [facility] (now [facility] He has
been there ever since even though his trach was removed. Patient lives in a 4 bedroom unit at [facility] where he is a long-term resident and [place] 3x a week for HD sessions. All of his family lives in [place], and his has since
him, he has not been visited by family in years. Afib is permanent and patient says he can hear his heart beat due to mechanical valve, but no palpitations. Patient thinks he had a cardiac arrest while admitted to [facility] years ago that was
related to amiodarone. He was on digoxin in 2014, but it was stopped for unclear reasons. Patient says he has chest pain, he has chronic chest pain. INR was 6.52 on admission this morning and he says INRs are checked every Tuesday with INR goal of
2.5 to 3.5. Vascular surgery evaluated patient and they graft is patent without obvious stenosis and bleeding thought to be from supratherapeutic INR and so no surgical intervention recommended. GI will see patient as well.
Progress Note - Immigration Patrol Inspector
Subjective
Date of Service: August 10, 2025
tells me he has no CP, SOB or palps
Objective
Labs:
08/10/25 01:58
08/09/25 06:07
Labs
Hgb 7.4 g/dL (13.0-18.0) L 08/10/25 01:58
Hct 22.4 % (39.0-52.0) L 08/10/25 01:58
Plt Count 154 10^3/uL (130-400) 08/10/25 01:58
PT 16.4 Sec (11.4-14.6) H 08/07/25 08:14
INR 1.27 08/07/25 08:14
APTT 52.5 Sec (23.4-35.0) H 08/10/25 01:58
Sodium 132 mmol/L (135-145) L 08/09/25 06:07
Potassium 3.9 mmol/L (3.5-5.1) 08/09/25 06:07
BUN 39 mg/dl (9-20) H 08/09/25 06:07
Creatinine 7.9 mg/dL (0.7-1.3) H* 08/09/25 06:07
Glucose 97 mg/dl (70-99) 08/09/25 06:07
Vital Signs and I&O:
Vital Signs
Temp Pulse Resp BP Pulse Ox
98.0 F 100 16 109/70 100
08/10/25 07:30 08/10/25 08:17 08/10/25 08:17 08/10/25 07:30 08/10/25 08:17
Vital Signs
Temp Pulse Resp BP Pulse Ox
98.0 F 100 16 109/70 100
08/10/25 07:30 08/10/25 08:17 08/10/25 08:17 08/10/25 07:30 08/10/25 08:17
Intake & Output
08/08/25 08/09/25 08/10/25 08/11/25
06:59 06:59 06:59 06:59
Intake Total 960 / 960 634 / 634 2380 / 2380
Balance 960 / 960 634 / 634 2380 / 2380
Physical Exam
Physical Exam
Well appearing, no distress
Irreg irreg, Mech S1, nl S2, / AHSM, no rubs, nl PMI
Lungs CTA B/L
Ext with trace b/l edema
[2025-08-10 09:30] LABS: APTT 44.7 Sec (23.4-35.0)
--- NOTE | 2025-08-10 09:33 | W.PN.HOSP.TC ---
Today's Communication/Plan
-
bowel prep and clears over weekend
IV heparin gtt
appreciate consultants
Assessment / Plan
Assessment / Plan
49-year-old with complex past medical history including end-stage renal disease on hemodialysis via left upper extremity AV fistula, chronic hypoxic respiratory failure on home O2, obstructive sleep apnea, congestive heart failure, chronic anemia,
atrial fibrillation, mechanical mitral valve replacement on anticoagulation with warfarin who presents to the emergency department with complaints of bleeding from fistula site after hemodialysis in the setting of supratherapeutic INR to 7.6 on
Tuesday, also reports approximately 3 days of bloody bowel movements. He was found to be hypotensive, in rapid afib with RVR.
EGD 08/08/25
Impression:
- Normal esophagus. no esophageal varices seen
- Multiple gastric polyps. Biopsied. Clip was placed to stop
oozing at biopsy site. 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
- Portal hypertensive gastropathy. no gastric varices seen.
- One non-bleeding angioectasia in the duodenum.
Recommendation:
- Continue present medications.
- restart Heparin in 6 hours
- colonoscopy Tuesday with 2 day prep over the weekend and if
negative needs capsule endoscopy
Hematochezia in setting of supratherapeutic INR
-s/p 5mg PO vitamin K in the ER with reversal of Coumadin
-s/p EGD morning 08/08 without finding of varices, multiple gastric polyps, one non-bleeding angioectasis in duodenum
-plan is for colonoscopy Tuesday with 2 day prep over weekend
-continue PPI oral
-clears over weekend
Acute Blood Loss Anemia
-s/p 2 units PRBC total
-repeat Hg this afternoon
Mechanical Mitral Valve
-goal INR 2.5-3
-Cardiology consulted to help guide bridging therapy
-continue IV Heparin gtt for bridging
Bleeding AV fistula - Hemostasis achieved
- vascular consulted, fistula u/s study with patent graft; small nonocclusive thrombus without significant stenosis
- no need for intervention unless bleeds again in setting of therapeutic INR
Atrial fibrillation with RVR- permanent afib on coumadin.
-IV heparin gtt as above
-digoxin started per Cardiology
End-stage renal disease
-appreciate renal consult
-HD MWF
Chronic Hypoxia - JOVITA, CHF (no acute exacerbation)
- stable on 3 L O2. No CPAP.
Chronic orthostatic hypotension
- continue midodrine/fludrocortisone
Sz d/o
- lamictal continued
Hypothyroid
- on levothyroxine
Diabetes
- diet controlled, sliding scale insulin
DVT PPX - SCD
Code status - Full code
Anticipated Discharge: > 48 hours
Subjective/Interval History
-
Date of Service: August 10, 2025
upset being on clears, wants food
having multiple BM
Objective Data
-
Labs:
Laboratory Results
08/10/25 08/10/25
01:58 08:49
WBC 8.7
Hgb 7.4 L
Hct 22.4 L
Plt Count 154
APTT 52.5 H 44.7 H
Vital Signs:
Vital Signs
Temp Pulse Resp BP Pulse Ox
98.0 F 100 16 109/70 100
08/10/25 07:30 08/10/25 08:17 08/10/25 08:17 08/10/25 07:30 08/10/25 08:17
I&O
08/09/25 08/10/25 08/11/25
06:59 06:59 06:59
Intake Total 634 / 634 2380 / 2380
Balance 634 / 634 2380 / 2380
Review of Systems
-
History Source: Patient
All other systems: Reviewed and negative
Physical Exam
-
General: Well Developed and No Apparent Distress
HEENT: PERRLA
Respiratory: Clear to Auscultation
Cardiac: Regular Rhythm and S1/S2
GI: Soft, Nontender and Nondistended
Musculoskeletal: No Edema
Neuro: Awake, Alert and Oriented
Psych: Calm
Data Reviewed
-
Diagnostic Radiology: Report Reviewed by me
Labs: Labs Reviewed by me
[2025-08-10 12:25] LABS: Glucose - Point of Care 107 mg/dl (70-99)
[2025-08-10] MEDS: LANOXIN 62.5 MCG PO (12:39)
[2025-08-10] MEDS: HEPARIN 25000 UNITS/250 ML IV (13:10)
[2025-08-10 16:19] LABS: Hemoglobin 7.5 g/dL (13.0-18.0)
--- NOTE | 2025-08-10 16:43 | PTCARENOTE ---
pt tolerating clear liquids, want food, incontinent of multiple BM's. heparin drip infusing, vss, will continue to monitor.
[2025-08-10 16:51] LABS: APTT 169.6 Sec (23.4-35.0)
--- NOTE | 2025-08-10 16:56 | W.PN.GI.CBS2 ---
Today's Communication / Plan
-
bowel regimen
Assessment / Plan
-
This is a 49-year-old male with significant past medical history of ESRD on HD, CVA, COPD on home O2, Valve replacement, afib on Coumadin, who presented to [facility] from nursing facility for prolonged bleeding following HD at left upper
extremity AV graft with melena on presentation in the setting of supratherapeutic anticoagulation INR of 6.5. He says that the dose of Coumadin was recently increased.
#GI bleed with supratherapeutic INR
#Acute blood loss anemia
dark brown heme+ stool in ED c/f GI bleed in the setting of supratherapeutic anticoagulation
upper GI source versus lower GI source, bleeding could be related to possible angioectasias versus PUD or neoplasm
-History of mitral valve replacement- on warfarin
-Atrial fibrillation
s/p vitamin K INR today 1.27 and started on heparin
Total of 2UPRBC given
Continue PPI po daily
Follow H&H closely
CT shows possible fecal impaction will give a milk of molasses enema - KUB done 08/09 showed improved stool burden in rectum compared to CT
Upper endoscopy done August [address] Ferrer showed normal esophagus, no varices, gastric polyp, portal hypertensive gastropathy with no gastric AVMs, 1 nonbleeding angioectasia in the duodenum.
He will need a 2-day prep to clean for the colonoscopy he also had a poor prep on his prior colonoscopy in 2020 he did have a tubular adenoma I ordered multiple doses of miralax tonight
Plan cscope on Tuesday (need to coordinate with HD) - will need to hold heparin gtt prior and needs midodrine prior to procedure - on d/w anesthesia today he did issues tolerating anesthesia for EGD unclear how he will do for cscope
If cscope negative will need capsule
CT also shows possible cirrhosis may be related to metabolic syndrome will need workup as outpatient. His LFTs on admission showed mildly elevated alkaline phosphatase level and otherwise unremarkable. CT done without contrast did not show any
obvious liver mass.
Subjective
Subjective
Date of Service: August 10, 2025
no BM today
Objective
Data Reviewed
Laboratory Data:
Laboratory Results
08/10/25 16:11
08/09/25 06:07
Laboratory Results
PT 16.4 Sec (11.4-14.6) H 08/07/25 08:14
INR 1.27 08/07/25 08:14
APTT 169.6 Sec (23.4-35.0) H* 08/10/25 16:11
Phosphorus 4.0 mg/dl (2.5-4.5) 08/09/25 06:07
Magnesium 2.0 mg/dl (1.6-2.3) 08/08/25 06:18
Total Bilirubin 0.7 mg/dl (0.2-1.3) 08/06/25 05:13
AST 36 U/L (17-59) 08/06/25 05:13
ALT 33 U/L (0-50) 08/06/25 05:13
Alkaline Phosphatase 129 U/L (38-126) H 08/06/25 05:13
Vital Signs and I&O:
Vital Signs
Temp Pulse Resp BP Pulse Ox
97.7 F 98 18 91/60 100
08/10/25 12:00 08/10/25 12:39 08/10/25 12:00 08/10/25 12:41 08/10/25 12:00
I&O
08/09/25 08/10/25 08/11/25
06:59 06:59 06:59
Intake Total 634 / 634 2380 / 2380
Balance 634 / 634 2380 / 2380
Physical Exam
Physical Exam
HEENT: Other (on o2)
Cardiology: Normal Sinus Rhythm
GI: Distended and Non Tender
--- NOTE | 2025-08-10 16:58 | PTCARENOTE ---
PTT result critical at 169.6. per Heparin protocol drip stopped and to be restarted in 1 hour and decrease rate by 2 to 1400units/her (14ml/hr), will continue to monitor.
--- NOTE | 2025-08-10 17:08 | W.PN.NEPH.PH ---
Today's Communication / Plan
-
likely HD first then C scope on Tuesday
Assessment/Plan
-
Impression:
End-stage renal disease.
AV graft bleed
GI bleed
Anemia.
Chronic hypotension on midodrine support
Hyperphosphatemia.
mechanical aortic valve on chronic anticoagulation
AFib.
Plan:
HD tomorrow,orders provided
Hemoglobin remains low at 7.5 s/p PRBC 08/08
midodrine, florinef continues for bp support on HD
echo noted EF 45-50%, severe TR with severe pulm HTN
fluid restriction and dietary restrictions directed for ESRD
Vascular surgery evaluation of AV graft no intervention required
Holding Coumadin, now on heparin gtt for C scope on tuesday
-
-
Date of Service: August 10, 2025
CC / HPI / ROS
-
Chief Complaint:
ESRD
History of Present Illness:
ESRD Tuesday
Chronically hemodynamically labile on midodrine support
Hemoglobin low still 7.5
Review of Systems:
No chest pain
Chronic O2 requirement
Abdominal discomfort
Labs
-
Labs:
WBC 8.7 10^3/uL (4.8-10.8) 08/10/25 01:58
RBC 2.51 10^6/uL (4.70-6.10) L 08/10/25 01:58
Hgb 7.5 g/dL (13.0-18.0) L 08/10/25 16:11
Hct 22.4 % (39.0-52.0) L 08/10/25 01:58
Plt Count 154 10^3/uL (130-400) 08/10/25 01:58
Sodium 132 mmol/L (135-145) L 08/09/25 06:07
Potassium 3.9 mmol/L (3.5-5.1) 08/09/25 06:07
Chloride 98 mmol/L (98-107) 08/09/25 06:07
Carbon Dioxide 24 mmol/L (22-30) 08/09/25 06:07
BUN 39 mg/dl (9-20) H 08/09/25 06:07
Creatinine 7.9 mg/dL (0.7-1.3) H* 08/09/25 06:07
eGFR 7.63 08/09/25 06:07
Glucose 97 mg/dl (70-99) 08/09/25 06:07
Calcium 7.8 mg/dl (8.4-10.2) L 08/09/25 06:07
Phosphorus 4.0 mg/dl (2.5-4.5) 08/09/25 06:07
Lnp-Z-Yyoxuazwhsu Pept Cancelled 08/08/25 09:32
Albumin 3.7 g/dl (3.5-5.0) 08/09/25 06:07
Physical Exam
-
Vital Signs:
Vital Signs
Temp Pulse Resp BP Pulse Ox
97.7 F 98 18 91/60 100
08/10/25 12:00 08/10/25 12:39 08/10/25 12:00 08/10/25 12:41 08/10/25 12:00
Cardiovascular:: Regular rate and rhythm
Respiratory:: Bilateral: CTA
Lung Excursion:: Normal
Abdomen:: Nontender
Bowel Sounds:: Normal
Extremity Edema:: None: Bilateral:
Fang Catheter: No
[2025-08-10] MEDS: MIRALAX 51 GRAMS PO ×2 (17:29→21:56)
--- NOTE | 2025-08-10 18:00 | PTCARENOTE ---
patient's heparin restarted at 1800 at 1400units/hr (14ml/hr) per protocol, will continue to monitor.
[2025-08-10 19:17] LABS: Glucose - Point of Care 113 mg/dl (70-99)
[2025-08-10 21:45] LABS: Glucose - Point of Care 106 mg/dl (70-99)
[2025-08-10] MEDS: NEURONTIN 300 MG PO (21:56)
[2025-08-10] MEDS: SENOKOT 17.2 MG PO (21:56)
[2025-08-11 01:00] LABS: APTT 191.5 Sec (23.4-35.0)
[2025-08-11] MEDS: MIRALAX PO ×2 (02:00→05:32)
[2025-08-11 03:46] VITALS: BP 103/56
[2025-08-11 06:00] VITALS: BMI 31.3
[2025-08-11] MEDS: SYNTHROID 100 MCG PO (06:13)
[2025-08-11] MEDS: SYNTHROID 112 MCG PO (06:13)
[2025-08-11 07:30] VITALS: BP 112/59
[2025-08-11] MEDS: FLOVENT 110 MCG INHALER 2 PUFF INH ×2 (07:51→19:49)
[2025-08-11 08:11] LABS: Hematocrit 23.8 % (39.0-52.0); Hemoglobin 7.7 g/dL (13.0-18.0); Mean Corp Hgb Conc. 32.4 g/dL (33.0-37.0); Mean Corpuscular Volume 91.5 fL (80.0-94.0); Platelet Count 158 10^3/uL (130-400); Red Cell Dist. Width 17.1 % (11.5-14.5)
[2025-08-11 08:23] LABS: Glucose - Point of Care 108 mg/dl (70-99)
[2025-08-11 08:29] LABS: APTT 152.3 Sec (23.4-35.0)
[2025-08-11 08:41] LABS: Albumin 3.8 g/dl (3.5-5.0); Blood Urea Nitrogen 22 mg/dl (9-20); Calcium 7.8 mg/dl (8.4-10.2); Carbon Dioxide 28 mmol/L (22-30); Chloride 97 mmol/L (98-107); Estimated Creatinine Clearance 16 ml/min; Glucose 96 mg/dl (70-99); Potassium 4.2 mmol/L (3.5-5.1); Sodium 132 mmol/L (135-145); eGFR 8.97
[2025-08-11] MEDS: FLORINEF 0.1 MG PO (09:25)
[2025-08-11] MEDS: PROTONIX 40 MG PO (09:25)
[2025-08-11] MEDS: LAMICTAL 200 MG PO ×2 (09:25→20:47)
[2025-08-11] MEDS: NOVOLOG FLEXPEN-LOW RESISTANCE SC ×4 (09:26→17:59)
--- NOTE | 2025-08-11 10:26 | W.PN.HOSP.TC ---
Today's Communication/Plan
-
plan for colonoscopy tomorrow; GI coordinating timing with Renal/HD
appreciate consultants
Assessment / Plan
Assessment / Plan
49-year-old with complex past medical history including end-stage renal disease on hemodialysis via left upper extremity AV fistula, chronic hypoxic respiratory failure on home O2, obstructive sleep apnea, congestive heart failure, chronic anemia,
atrial fibrillation, mechanical mitral valve replacement on anticoagulation with warfarin who presents to the emergency department with complaints of bleeding from fistula site after hemodialysis in the setting of supratherapeutic INR to 7.6 on
Tuesday, also reports approximately 3 days of bloody bowel movements. He was found to be hypotensive, in rapid afib with RVR.
EGD 08/08/25
Impression:
- Normal esophagus. no esophageal varices seen
- Multiple gastric polyps. Biopsied. Clip was placed to stop
oozing at biopsy site. 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
- Portal hypertensive gastropathy. no gastric varices seen.
- One non-bleeding angioectasia in the duodenum.
Recommendation:
- Continue present medications.
- restart Heparin in 6 hours
- colonoscopy Tuesday with 2 day prep over the weekend and if
negative needs capsule endoscopy
Hematochezia in setting of supratherapeutic INR
-s/p 5mg PO vitamin K in the ER with reversal of Coumadin
-s/p EGD morning 08/08 without finding of varices, multiple gastric polyps, one non-bleeding angioectasis in duodenum
-plan is for colonoscopy Tuesday with 2 day prep over weekend
-continue PPI oral
-clears over weekend; NPO after MN
Acute Blood Loss Anemia
-s/p 2 units PRBC total
-Hg stable
Mechanical Mitral Valve
-goal INR 2.5-3
-Cardiology consulted to help guide bridging therapy
-continue IV Heparin gtt for bridging
Bleeding AV fistula - Hemostasis achieved
- vascular consulted, fistula u/s study with patent graft; small nonocclusive thrombus without significant stenosis
- no need for intervention unless bleeds again in setting of therapeutic INR
Atrial fibrillation with RVR- permanent afib on coumadin.
-IV heparin gtt as above
-digoxin started per Cardiology
End-stage renal disease
-appreciate renal consult
-HD MWF
Chronic Hypoxia - JOVITA, CHF (no acute exacerbation)
- stable on 3 L O2. No CPAP.
Chronic orthostatic hypotension
- continue midodrine/fludrocortisone
Sz d/o
- lamictal continued
Hypothyroid
- on levothyroxine
Diabetes
-ISS low
DVT PPX - SCD
Code status - Full code
Anticipated Discharge: 24 - 48 hours
Subjective/Interval History
-
Date of Service: August 11, 2025
no new complaints
having multiple BM
not bloody
Objective Data
-
Labs:
Laboratory Results
08/11/25 08/11/25 08/11/25
00:19 08:02 08:03
WBC 8.4
Hgb 7.7 L
Hct 23.8 L
Plt Count 158
APTT 191.5 H* 152.3 H*
Sodium 132 L
Potassium 4.2
Chloride 97 L
Carbon Dioxide 28
BUN 22 H
Creatinine 6.9 H*
Glucose 96
Calcium 7.8 L
Vital Signs:
Vital Signs
Temp Pulse Resp BP Pulse Ox
97.7 F 79 16 112/59 100
08/11/25 07:30 08/11/25 07:54 08/11/25 07:54 08/11/25 07:30 08/11/25 07:54
I&O
08/10/25 08/11/25 08/12/25
06:59 06:59 06:59
Intake Total 2380 / 2380 500 / 500 480 / 480
Balance 2380 / 2380 500 / 500 480 / 480
Review of Systems
-
History Source: Patient
All other systems: Reviewed and negative
Physical Exam
-
General: Well Developed and No Apparent Distress
HEENT: PERRLA
Respiratory: Clear to Auscultation
Cardiac: Regular Rhythm and S1/S2
GI: Soft, Nontender and Nondistended
Musculoskeletal: No Edema
Neuro: Awake, Alert and Oriented
Psych: Calm
Data Reviewed
-
Diagnostic Radiology: Report Reviewed by me
Labs: Labs Reviewed by me
[2025-08-11 11:30] VITALS: BP 108/59
[2025-08-11] MEDS: HEPARIN 25000 UNITS/250 ML IV (12:14)
[2025-08-11] MEDS: LANOXIN 62.5 MCG PO (13:14)
[2025-08-11 13:19] LABS: Glucose - Point of Care 103 mg/dl (70-99)
[2025-08-11 16:00] VITALS: BP 109/64
--- NOTE | 2025-08-11 16:11 | W.PN.NEPH.PH ---
Today's Communication / Plan
-
HD tomorrow
Assessment/Plan
-
Impression:
End-stage renal disease.
AV graft bleed
GI bleed
Anemia.
Chronic hypotension on midodrine support
Hyperphosphatemia.
mechanical aortic valve on chronic anticoagulation
AFib.
Plan:
HD tomorrow post C scope
Hemoglobin remains low at 7.7 s/p PRBC 08/08
midodrine, joseinef continues for bp support on HD
echo noted EF 45-50%, severe TR with severe pulm HTN
fluid restriction and dietary restrictions directed for ESRD
Vascular surgery evaluation of AV graft no intervention required
Holding Coumadin, now on heparin gtt for C scope on tuesday
-
-
Date of Service: August 11, 2025
CC / HPI / ROS
-
Chief Complaint:
ESRD
History of Present Illness:
ESRD Tuesday
Chronically hemodynamically labile on midodrine support
Hemoglobin low still 7.7
Review of Systems:
No chest pain
Chronic O2 requirement
Abdominal discomfort
Labs
-
Labs:
WBC 8.4 10^3/uL (4.8-10.8) 08/11/25 08:03
RBC 2.60 10^6/uL (4.70-6.10) L 08/11/25 08:03
Hgb 7.7 g/dL (13.0-18.0) L 08/11/25 08:03
Hct 23.8 % (39.0-52.0) L 08/11/25 08:03
Plt Count 158 10^3/uL (130-400) 08/11/25 08:03
Sodium 132 mmol/L (135-145) L 08/11/25 08:02
Potassium 4.2 mmol/L (3.5-5.1) 08/11/25 08:02
Chloride 97 mmol/L (98-107) L 08/11/25 08:02
Carbon Dioxide 28 mmol/L (22-30) 08/11/25 08:02
BUN 22 mg/dl (9-20) H 08/11/25 08:02
Creatinine 6.9 mg/dL (0.7-1.3) H* 08/11/25 08:02
eGFR 8.97 08/11/25 08:02
Glucose 96 mg/dl (70-99) 08/11/25 08:02
Calcium 7.8 mg/dl (8.4-10.2) L 08/11/25 08:02
Phosphorus 3.4 mg/dl (2.5-4.5) 08/11/25 08:02
Wsm-S-Zfgqfqsfqdt Pept Cancelled 08/08/25 09:32
Albumin 3.8 g/dl (3.5-5.0) 08/11/25 08:02
Physical Exam
-
Vital Signs:
Vital Signs
Temp Pulse Resp BP Pulse Ox
97.8 F 105 18 139/57 99
08/11/25 11:30 08/11/25 13:14 08/11/25 11:30 08/11/25 13:13 08/11/25 11:30
Cardiovascular:: Regular rate and rhythm
Respiratory:: Bilateral: CTA
Lung Excursion:: Normal
Abdomen:: Nontender
Bowel Sounds:: Normal
Extremity Edema:: None: Bilateral:
Fang Catheter: No
[2025-08-11 16:27] LABS: APTT 62.0 Sec (23.4-35.0)
--- NOTE | 2025-08-11 16:27 | W.PN.GI.CBS2 ---
Today's Communication / Plan
-
cscope tomorrow
Assessment / Plan
-
This is a 49-year-old male with significant past medical history of ESRD on HD, CVA, COPD on home O2, Valve replacement, afib on Coumadin, who presented to [facility] from nursing facility for prolonged bleeding following HD at left upper
extremity AV graft with melena on presentation in the setting of supratherapeutic anticoagulation INR of 6.5. He says that the dose of Coumadin was recently increased.
#GI bleed with supratherapeutic INR
#Acute blood loss anemia
dark brown heme+ stool in ED c/f GI bleed in the setting of supratherapeutic anticoagulation
upper GI source versus lower GI source, bleeding could be related to possible angioectasias versus PUD or neoplasm
-History of mitral valve replacement- on warfarin
-Atrial fibrillation
s/p vitamin K INR today 1.27 and started on heparin
Total of 2UPRBC given
Continue PPI po daily
Follow H&H closely
CT shows possible fecal impaction will give a milk of molasses enema - KUB done 08/09 showed improved stool burden in rectum compared to CT
Upper endoscopy done August [address] Ferrer showed normal esophagus, no varices, gastric polyp, portal hypertensive gastropathy with no gastric AVMs, 1 nonbleeding angioectasia in the duodenum.
He will need a 2-day prep to clean for the colonoscopy he also had a poor prep on his prior colonoscopy in 2020 he did have a tubular adenoma I ordered multiple doses of miralax tonight
Plan cscope on Tuesday (I discussed with nephro today - will do cscope in AM and HD in PM) - will hold heparin at 4am for plan for procedure at 10am; will need am midodrine before procedure- on d/w anesthesia today he did issues tolerating anesthesia
for EGD unclear how he will do for cscope
If cscope negative will need capsule
CT also shows possible cirrhosis may be related to metabolic syndrome will need workup as outpatient. His LFTs on admission showed mildly elevated alkaline phosphatase level and otherwise unremarkable. CT done without contrast did not show any
obvious liver mass.
Subjective
Subjective
Date of Service: August 11, 2025
Pt with no complaints
Had BM with miralax
Objective
Data Reviewed
Laboratory Data:
Laboratory Results
08/11/25 08:03
08/11/25 08:02
Laboratory Results
PT 16.4 Sec (11.4-14.6) H 08/07/25 08:14
INR 1.27 08/07/25 08:14
APTT 152.3 Sec (23.4-35.0) H* 08/11/25 08:02
Phosphorus 3.4 mg/dl (2.5-4.5) 08/11/25 08:02
Magnesium 2.0 mg/dl (1.6-2.3) 08/08/25 06:18
Total Bilirubin 0.7 mg/dl (0.2-1.3) 08/06/25 05:13
AST 36 U/L (17-59) 08/06/25 05:13
ALT 33 U/L (0-50) 08/06/25 05:13
Alkaline Phosphatase 129 U/L (38-126) H 08/06/25 05:13
Vital Signs and I&O:
Vital Signs
Temp Pulse Resp BP Pulse Ox
97.8 F 105 18 139/57 99
08/11/25 11:30 08/11/25 13:14 08/11/25 11:30 08/11/25 13:13 08/11/25 11:30
I&O
08/10/25 08/11/25 08/12/25
06:59 06:59 06:59
Intake Total 2380 / 2380 500 / 500 480 / 480
Balance 2380 / 2380 500 / 500 480 / 480
Physical Exam
Physical Exam
GI: Distended and Non Tender
[2025-08-11 17:54] LABS: Glucose - Point of Care 86 mg/dl (70-99)
[2025-08-11 19:56] VITALS: BP 120/62
[2025-08-11] MEDS: NEURONTIN 300 MG PO (20:46)
[2025-08-11] MEDS: SENOKOT 17.2 MG PO (20:46)
[2025-08-11] MEDS: NULYTELY SOLUTION 4 LITERS PO (20:48)
[2025-08-11 22:11] LABS: Glucose - Point of Care 93 mg/dl (70-99)
[2025-08-11 23:44] VITALS: BP 119/67
[2025-08-12] VITALS (8 sets, daily range): BP systolic 22–130; BP diastolic 52–103; BMI 31.4
[2025-08-12 00:30] LABS: APTT 106.4 Sec (23.4-35.0)
[2025-08-12] MEDS: DESYREL 150 MG PO ×2 (01:02→23:59)
[2025-08-12] MEDS: ULTRAM 25 MG PO (01:06)
--- NOTE | 2025-08-12 04:32 | PTCARENOTE ---
Heparin gtt stopped as ordered.
[2025-08-12 04:41] LABS: Hematocrit 21.2 % (39.0-52.0); Hemoglobin 7.0 g/dL (13.0-18.0); Mean Corp Hgb Conc. 33.0 g/dL (33.0-37.0); Mean Corpuscular Volume 91.4 fL (80.0-94.0); Platelet Count 163 10^3/uL (130-400); Red Cell Dist. Width 16.4 % (11.5-14.5)
[2025-08-12 05:13] LABS: Albumin 3.4 g/dl (3.5-5.0); Blood Urea Nitrogen 25 mg/dl (9-20); Calcium 7.7 mg/dl (8.4-10.2); Carbon Dioxide 27 mmol/L (22-30); Chloride 97 mmol/L (98-107); Estimated Creatinine Clearance 13 ml/min; Glucose 84 mg/dl (70-99); Potassium 4.6 mmol/L (3.5-5.1); Sodium 131 mmol/L (135-145); eGFR 6.99
[2025-08-12 05:44] LABS: Glucose - Point of Care 90 mg/dl (70-99)
[2025-08-12] MEDS: SYNTHROID 100 MCG PO (05:48)
[2025-08-12] MEDS: SYNTHROID 112 MCG PO (05:48)
[2025-08-12] MEDS: FLOVENT 110 MCG INHALER 2 PUFF INH ×2 (07:49→19:28)
[2025-08-12] MEDS: LAMICTAL 200 MG PO ×2 (08:04→19:34)
[2025-08-12] MEDS: WELLBUTRIN SR (12 hour sustained release) 150 MG PO (08:04)
[2025-08-12] MEDS: PROTONIX 40 MG PO (08:05)
[2025-08-12] MEDS: FLORINEF 0.1 MG PO (08:06)
[2025-08-12] MEDS: ZYRTEC 5 MG PO (08:10)
[2025-08-12 12:12] LABS: Glucose - Point of Care 136 mg/dl (70-99)
--- NOTE | 2025-08-12 12:18 | CM ---
Pt is s/p colonoscopy this morning; plan for HD today.
CM following to coordinate discharge to [facility] when medically stable.
PLAN: Return to [facility] when medically stable, CM to continue to follow
[facility]
Report #: [phone]
Fax #: [phone]
[facility] fax #: [phone]
[2025-08-12] MEDS: EMLA CREAM 5 GRAM TOPICAL (12:42)
[2025-08-12] MEDS: LANOXIN 62.5 MCG PO (13:27)
--- NOTE | 2025-08-12 14:06 | W.PN.CARDCBS ---
Addendum entered and electronically signed by Aniceto Zurita MD 08/12/25 14:52:
I saw and examined the patient.
The ECHOCARDIOGRAPH TECH or PA's note was reviewed and I agree with the note.
Comment: General: Well developed, well nourished in NAD.
Neck: Supple, no JVD, HJR, carotids +2 B/L, no bruits bilaterally.
Heart: Non displaced PMI, irregular, no murmurs, No S3, S4, no rubs.
Lungs: Scattered rhonchi
Extremities: No clubbing, cyanosis or edema bilaterally.
Neuro: Grossly nonfocal, awake, alert and oriented x3.
Okay for GI procedure without further testing. Heparin to be started without bolus postprocedure and will start Coumadin as well. Will continue to follow hemoglobin closely.
Original Note:
Today's Communication / Plan
-
Start Heparin gtt without bolus
Start warfarin 15 mg tonight, patient says he was taking warfarin 18 mg daily prior to admission, orders placed by me
Impression / Plan
-
PCP: Dr. Flores at [facility]
Primary Supervisor Phosphatic Fertilizer: last seen in the office by Dr. Lovell in 2019
Assessment:
Admitted with bleeding fistula and GIB 08/06/2025
Previous admission for HD fistula bleeding 09/10/24 until 09/14/2024 s/p fistula revision 09/13/24
s/p left forearm AV fistula
Revision 09/13/2024
Revision 12/20/2024
Anemia, multifactorial
Permanent atrial fibrillation
Recovered NICM, EF was 25-30% by echo 05/26/22, then 50% by echo 09/13/24
Chronic HFrEF
s/p SJM Mechanical MVR 1997
Chronic Coumadin therapy
Severe tricuspid regurgitation
h/o ICD explant due to infection 2005
HTN
ESRD on HD MWF
h/o CVA, by review of CT head with an area of encephalomalacia involving the right anterolateral frontal lobe 07/2015
Obstructive sleep apnea
Former smoker
ECHO 06/2018: Global hypokinesis, most marked in anterior and septal segments, EF 35 to 40%, normal function of mechanical MVR with peak/mean gradients 19/7 mmHg, no MR, dilated left atrium, dilated right ventricle, moderate TR, moderate pulmonary
hypertension, PAP 52 to 57 mmHg, atrial septal aneurysm
Echo 05/26/22: EF 25-30%, mechanical mitral valve with peak/mean 13/5 mmHg and no MR, aortic valve is normal, dilated and hypokinetic RV with dilated RA and mod MR with PAP 50-55 mmHg
ECHO 09/13/24: EF 50%, mild concentric LVH, flattened septum in systole and diastole consistent with RV pressure and volume overload, well-seated mechanical mitral valve with mean gradient 6 mmHg, mild to moderate TR, PAP 75 to 80 mmHg
Echo 08/08/2025: EF 45 to 50%, hypokinetic RV, dilated right atrium, [place] mechanical MVR with peak/mean gradient 16/7 mmHg with mild MR, sev TR with PAP 79 mmHg. Echo similar to 09/2024
Plan:
-Patient admitted with GIB and bleeding AVF and cardiology was initially consulted for supratherapeutic INR in the setting of chronic warfarin therapy for mechanical MVR.
-Patient had colonoscopy 08/12/2025 that showed melanosis in the colon, 2 mm polyp ascending colon removed, 8 mm polyp transverse colon removed and 2 polyps in the transverse colon that were removed. Appreciate TT communication from GI attending
that we can resume heparin gtt without bolus on 08/12/2025
-Patient had upper endoscopy on 08/08/2025 that showed multiple gastric polyps and nonbleeding angiectasia in the duodenum
-Patient has traditionally been bridged with heparin gtt when INR has been subtherapeutic due to previous mechanical MVR and CVA.
-A-fib is permanent. HR control has been limited by hypotension in past, but new to digoxin 62.5 mcg daily this admission. Check to digoxin level 08/13/2025, orders placed by me.
-Patient was not taking any AV ismael blockers prior to admission due to hypotension
-Outpatient dose of midodrine 10 mg every 6 hours plus Florinef 0.1 mg daily has been continued
-Patient reports he had cardiac arrest with amiodarone at [facility] in 2014, but cannot find any records of that or records that Amio is listed as an allergy/intolerance
-EF was 25% in 2021, then 50% by echo 09/13/2024 and relatively stable by echo 08-31 when EF was 45 to 50%
-Patient was intolerant to Toprol-XL due to hypotension
-Patient is not a candidate for MALU/ARB/Aldactone/SGLT2 due to hemodialysis
-Volume status being managed with HD
Clinical summary: Patient came to the ER today with a bleeding fistula, dark blood in his stools and an elevated INR, cardiology is consulted due to the need for warfarin OAC in the setting of mechanical MVR. Patient is originally from [facility]
[place] and has a complicated past medical history spread out over the [facility]. He had a mechanical mitral valve while living in [place], [place] in 1997. He says this was for a history rheumatic heart disease as a child. Then sometime around 2008
he moved to [place], [place] with his and around that time he says he had a marked deterioration in his renal function and was started on hemodialysis in response to hypertensive nephropathy. He says that since then he had chronic
infections related to his hemodialysis port. During an admission to [facility] in 2014 he required a trach. With the addition of trach to his dialysis, he could only be transferred to [facility] (now [facility]). He has
been there ever since even though his trach was removed. Patient lives in a 4 bedroom unit at [facility] where he is a long-term resident and travels by [place] 3x a week for HD sessions. All of his family lives in [place], and his has since
him, he has not been visited by family in years. Afib is permanent and patient says he can hear his heart beat due to mechanical valve, but no palpitations. Patient thinks he had a cardiac arrest while admitted to [facility] years ago that was
related to amiodarone. He was on digoxin in 2014, but it was stopped for unclear reasons. Patient says he has chest pain, he has chronic chest pain. INR was 6.52 on admission this morning and he says INRs are checked every Tuesday with INR goal of
2.5 to 3.5. Vascular surgery evaluated patient and they graft is patent without obvious stenosis and bleeding thought to be from supratherapeutic INR and so no surgical intervention recommended. GI will see patient as well.
Progress Note - Supervisor Phosphatic Fertilizer
Subjective
Date of Service: August 12, 2025
He feels well, he'd like to eat
Objective
Labs:
08/12/25 04:20
08/12/25 04:20
Labs
Hgb 7.0 g/dL (13.0-18.0) L 08/12/25 04:20
Hct 21.2 % (39.0-52.0) L 08/12/25 04:20
Plt Count 163 10^3/uL (130-400) 08/12/25 04:20
PT 16.4 Sec (11.4-14.6) H 08/07/25 08:14
INR 1.27 08/07/25 08:14
APTT 106.4 Sec (23.4-35.0) H 08/11/25 23:59
Sodium 131 mmol/L (135-145) L 08/12/25 04:20
Potassium 4.6 mmol/L (3.5-5.1) 08/12/25 04:20
BUN 25 mg/dl (9-20) H 08/12/25 04:20
Creatinine 8.5 mg/dL (0.7-1.3) H* 08/12/25 04:20
Glucose 84 mg/dl (70-99) 08/12/25 04:20
Vital Signs and I&O:
Vital Signs
Temp Pulse Resp BP Pulse Ox
97.7 F 90 16 109/65 100
08/12/25 12:47 08/12/25 13:27 08/12/25 12:47 08/12/25 12:47 08/12/25 12:47
Vital Signs
Temp Pulse Resp BP Pulse Ox
97.7 F 90 16 109/65 100
08/12/25 12:47 08/12/25 13:27 08/12/25 12:47 08/12/25 12:47 08/12/25 12:47
Intake & Output
08/10/25 08/11/25 08/12/25 08/13/25
06:59 06:59 06:59 06:59
Intake Total 2380 / 2380 500 / 500 1200 / 1200
Balance 2380 / 2380 500 / 500 1200 / 1200
Physical Exam
Physical Exam
GEN: NAD. Sleeping initially and then awakens easily and is AAO x3
LUNGS: 3 L NC. No wheeze
CV: Afib on tele.
--- NOTE | 2025-08-12 14:19 | W.PN.HOSP.TC ---
Today's Communication/Plan
-
resume coumadin tonight
Assessment / Plan
Assessment / Plan
49-year-old with complex past medical history including end-stage renal disease on hemodialysis via left upper extremity AV fistula, chronic hypoxic respiratory failure on home O2, obstructive sleep apnea, congestive heart failure, chronic anemia,
atrial fibrillation, mechanical mitral valve replacement on anticoagulation with warfarin who presents to the emergency department with complaints of bleeding from fistula site after hemodialysis in the setting of supratherapeutic INR to 7.6 on
Tuesday, also reports approximately 3 days of bloody bowel movements. He was found to be hypotensive, in rapid afib with RVR.
EGD 08/08/25
Impression:
- Normal esophagus. no esophageal varices seen
- Multiple gastric polyps. Biopsied. Clip was placed to stop
oozing at biopsy site. 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
- Portal hypertensive gastropathy. no gastric varices seen.
- One non-bleeding angioectasia in the duodenum.
Recommendation:
- Continue present medications.
- restart Heparin in 6 hours
- colonoscopy Tuesday with 2 day prep over the weekend and if
negative needs capsule endoscopy
Hematochezia in setting of supratherapeutic INR
-s/p 5mg PO vitamin K in the ER with reversal of Coumadin
-s/p EGD morning 08/08 without finding of varices, multiple gastric polyps, one non-bleeding angioectasis in duodenum
- Colonoscopy 08/12 with no obvious rectal bleeding, polyps removed.
� GI outpatient follow-up for pathology
� Repeat colonoscopy in 3 years
� Recommend capsule endoscopy outpatient
-continue PPI oral
Acute Blood Loss Anemia
-s/p 2 units PRBC total
-Hg stable
Mechanical Mitral Valve
-goal INR 2.5-3
-Cardiology consulted to help guide bridging therapy
-continue IV Heparin gtt for bridging; Can start Coumadin back today as per GI
Bleeding AV fistula - Hemostasis achieved
- vascular consulted, fistula u/s study with patent graft; small nonocclusive thrombus without significant stenosis
- no need for intervention unless bleeds again in setting of therapeutic INR
Atrial fibrillation with RVR- permanent afib on coumadin.
-IV heparin gtt as above
-digoxin started per Cardiology
End-stage renal disease
-appreciate renal consult
-HD MWF
Chronic Hypoxia - JOVITA, CHF (no acute exacerbation)
- stable on 3 L O2. No CPAP.
Chronic orthostatic hypotension
- continue midodrine/fludrocortisone
Sz d/o
- lamictal continued
Hypothyroid
- on levothyroxine
Diabetes
-ISS low
DVT PPX - SCD
Code status - Full code
Total time spent on today's encounter was 51 minutes which included time spent in counseling the patient/family regarding diagnosis and treatment plan as listed above, goals of care, and symptom management. Case was discussed with nursing staff,
specialists, and care coordinators/case management. All labs and imaging personally reviewed by me. Remainder the time spent in detailed review of previous records, lab data, imaging, and other medical provider documentation.
Anticipated Discharge: 24 - 48 hours
Subjective/Interval History
-
Date of Service: August 12, 2025
scope today
Objective Data
-
Labs:
Laboratory Results
08/12/25
04:20
WBC 7.7
Hgb 7.0 L
Hct 21.2 L
Plt Count 163
Sodium 131 L
Potassium 4.6
Chloride 97 L
Carbon Dioxide 27
BUN 25 H
Creatinine 8.5 H*
Glucose 84
Calcium 7.7 L
Vital Signs:
Vital Signs
Temp Pulse Resp BP Pulse Ox
97.7 F 90 16 109/65 100
08/12/25 12:47 08/12/25 13:27 08/12/25 12:47 08/12/25 12:47 08/12/25 12:47
I&O
08/11/25 08/12/25 08/13/25
06:59 06:59 06:59
Intake Total 500 / 500 1200 / 1200
Balance 500 / 500 1200 / 1200
Review of Systems
-
History Source: Patient
All other systems: Not reviewed unless documented
Physical Exam
-
General: Well Developed and No Apparent Distress
HEENT: PERRLA
Respiratory: Clear to Auscultation
Cardiac: Regular Rhythm and S1/S2
GI: Soft, Nontender and Nondistended
Musculoskeletal: No Edema
Neuro: Awake, Alert and Oriented
Psych: Calm
--- NOTE | 2025-08-12 14:28 | W.PN.NEPH.HD ---
Assessment
-
Seen on HD. No new complaints hemoglobin stable low, access good
Progress Note - Hemodialysis
-
Date of Service: August 12, 2025
Duration: 45 minutes and 3 hours
Potassium Bath: 2
Calcium Bath: 2.5
Opti-Dialyzer: 160
Ultrafiltration: Other (2)
Blood Flow: 400
Dialysate Flow: 600
Heparin: 0
EPO: 97563 units
[2025-08-12] MEDS: RETACRIT 10000 UNITS IV (14:45)
[2025-08-12 14:59] LABS: APTT 35.1 Sec (23.4-35.0)
[2025-08-12] MEDS: HEPARIN 25000 UNITS/250 ML IV (16:11)
[2025-08-12 16:49] LABS: Glucose - Point of Care 89 mg/dl (70-99)
[2025-08-12] MEDS: NOVOLOG FLEXPEN-LOW RESISTANCE SC (18:12)
[2025-08-12] MEDS: COUMADIN 15 MG PO (18:14)
[2025-08-12] MEDS: SENOKOT 17.2 MG PO (21:05)
[2025-08-12] MEDS: NEURONTIN 300 MG PO (21:05)
[2025-08-12 21:38] LABS: Glucose - Point of Care 127 mg/dl (70-99)
[2025-08-12 23:05] LABS: INR 1.10; PT 14.5 Sec (11.4-14.6)
[2025-08-12 23:06] LABS: APTT 53.2 Sec (23.4-35.0)
[2025-08-13] MEDS: TYLENOL 650 MG PO (00:03)
[2025-08-13 03:30] VITALS: BP 94/43
[2025-08-13 03:45] VITALS: BMI 31.3
[2025-08-13 05:49] LABS: Hematocrit 21.7 % (39.0-52.0); Hemoglobin 7.0 g/dL (13.0-18.0); Mean Corp Hgb Conc. 32.3 g/dL (33.0-37.0); Mean Corpuscular Volume 91.6 fL (80.0-94.0); Platelet Count 176 10^3/uL (130-400); Red Cell Dist. Width 17.0 % (11.5-14.5)
[2025-08-13] MEDS: SYNTHROID 112 MCG PO (05:53)
[2025-08-13] MEDS: SYNTHROID 100 MCG PO (05:53)
[2025-08-13 06:00] LABS: INR 1.12; PT 14.9 Sec (11.4-14.6)
[2025-08-13 06:02] LABS: APTT 84.9 Sec (23.4-35.0)
[2025-08-13 06:23] LABS: ALT (SGPT) 28 U/L (0-50); AST (SGOT) 23 U/L (17-59); Albumin 3.4 g/dl (3.5-5.0); Alkaline Phosphatase 113 U/L (38-126); Blood Urea Nitrogen 13 mg/dl (9-20); Calcium 7.9 mg/dl (8.4-10.2); Carbon Dioxide 30 mmol/L (22-30); Chloride 98 mmol/L (98-107); Estimated Creatinine Clearance 22 ml/min; Glucose 86 mg/dl (70-99); Potassium 3.7 mmol/L (3.5-5.1); Sodium 134 mmol/L (135-145); Total Protein 6.3 g/dl (6.3-8.2); eGFR 13.21
[2025-08-13 07:33] VITALS: BP 115/54
[2025-08-13 07:40] LABS: Glucose - Point of Care 96 mg/dl (70-99)
[2025-08-13] MEDS: FLOVENT 110 MCG INHALER 2 PUFF INH ×2 (07:54→19:48)
[2025-08-13] MEDS: NOVOLOG FLEXPEN-LOW RESISTANCE SC ×2 (08:50→17:02)
[2025-08-13] MEDS: FLORINEF 0.1 MG PO (08:51)
[2025-08-13] MEDS: PROTONIX 40 MG PO (08:51)
[2025-08-13] MEDS: LAMICTAL 200 MG PO ×2 (08:51→20:43)
[2025-08-13] MEDS: ULTRAM 25 MG PO (09:02)
[2025-08-13 10:45] VITALS: BP 97/62
--- NOTE | 2025-08-13 11:20 | CM ---
CM attended rounds with Dr. Zuñiga who anticipates possible discharge to [facility] tomorrow via ambulance; anticipate noon discharge.
[facility] Report: [phone]
[facility]
[2025-08-13 11:51] LABS: Glucose - Point of Care 197 mg/dl (70-99)
[2025-08-13] MEDS: LANOXIN 62.5 MCG PO (11:55)
[2025-08-13] MEDS: NOVOLOG FLEXPEN-LOW RESISTANCE 1 UNITS SC (11:58)
--- NOTE | 2025-08-13 13:30 | W.PN.HOSP.TC ---
Today's Communication/Plan
-
coumadin tonight as per cards
hep ggt
monitor hgb
Assessment / Plan
Assessment / Plan
49-year-old with complex past medical history including end-stage renal disease on hemodialysis via left upper extremity AV fistula, chronic hypoxic respiratory failure on home O2, obstructive sleep apnea, congestive heart failure, chronic anemia,
atrial fibrillation, mechanical mitral valve replacement on anticoagulation with warfarin who presents to the emergency department with complaints of bleeding from fistula site after hemodialysis in the setting of supratherapeutic INR to 7.6 on
Tuesday, also reports approximately 3 days of bloody bowel movements. He was found to be hypotensive, in rapid afib with RVR.
EGD 08/08/25
Impression:
- Normal esophagus. no esophageal varices seen
- Multiple gastric polyps. Biopsied. Clip was placed to stop
oozing at biopsy site. 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
- Portal hypertensive gastropathy. no gastric varices seen.
- One non-bleeding angioectasia in the duodenum.
Recommendation:
- Continue present medications.
- restart Heparin in 6 hours
- colonoscopy Tuesday with 2 day prep over the weekend and if
negative needs capsule endoscopy
Hematochezia in setting of supratherapeutic INR
-s/p 5mg PO vitamin K in the ER with reversal of Coumadin
-s/p EGD morning 08/08 without finding of varices, multiple gastric polyps, one non-bleeding angioectasis in duodenum
- Colonoscopy 08/12 with no obvious rectal bleeding, polyps removed.
� GI outpatient follow-up for pathology
� Repeat colonoscopy in 3 years
� Recommend capsule endoscopy outpatient
-continue PPI oral
Acute Blood Loss Anemia
-s/p 2 units PRBC total
-Hg stable
Mechanical Mitral Valve
-goal INR 2.5-3
-Cardiology consulted to help guide bridging therapy
-continue IV Heparin gtt for bridging; Can start Coumadin back 08/12 as per GI- Coumadin dosing as per cards
Bleeding AV fistula - Hemostasis achieved
- vascular consulted, fistula u/s study with patent graft; small nonocclusive thrombus without significant stenosis
- no need for intervention unless bleeds again in setting of therapeutic INR
Atrial fibrillation with RVR- permanent afib on coumadin.
-IV heparin gtt as above
-digoxin started per Cardiology
End-stage renal disease
-appreciate renal consult
-HD MWF
Chronic Hypoxia - JOVITA, CHF (no acute exacerbation)
- stable on 3 L O2. No CPAP.
Chronic orthostatic hypotension
- continue midodrine/fludrocortisone
Sz d/o
- lamictal continued
Hypothyroid
- on levothyroxine
Diabetes
-ISS low
DVT PPX - SCD
Code status - Full code
Anticipated Discharge: 24 - 48 hours
Subjective/Interval History
-
Date of Service: August 13, 2025
Hemoglobin at 7
Objective Data
-
Labs:
Laboratory Results
08/13/25 08/13/25
05:33 12:28
WBC 7.6
Hgb 7.0 L
Hct 21.7 L
Plt Count 176
PT 14.9 H
INR 1.12
APTT 84.9 H Pending
Sodium 134 L
Potassium 3.7
Chloride 98
Carbon Dioxide 30
BUN 13
Creatinine 5.0 H*
Glucose 86
Calcium 7.9 L
Total Bilirubin 1.0
AST 23
ALT 28
Alkaline Phosphatase 113
Vital Signs:
Vital Signs
Temp Pulse Resp BP Pulse Ox
98.1 F 72 16 97/62 96
08/13/25 10:45 08/13/25 11:56 08/13/25 10:45 08/13/25 11:56 08/13/25 10:45
I&O
08/12/25 08/13/25 08/14/25
06:59 06:59 06:59
Intake Total 1200 / 1200 480 / 480
Output Total 0 / 0
Balance 1200 / 1200 480 / 480
Review of Systems
-
History Source: Patient
All other systems: Not reviewed unless documented
Data Reviewed
-
Diagnostic Radiology: Report Reviewed by me
Labs: Labs Reviewed by me
[2025-08-13 13:57] LABS: APTT > 200 Sec (23.4-35.0)
--- NOTE | 2025-08-13 14:04 | W.PN.NEPH.PH ---
Today's Communication / Plan
-
HD tomorrow
Assessment/Plan
-
Impression:
End-stage renal disease.
AV graft bleed
GI bleed
Anemia.
Chronic hypotension on midodrine support
Hyperphosphatemia.
mechanical aortic valve on chronic anticoagulation
AFib.
Plan:
HD tomorrow
transfuse on HD tomorrow
solomon maurice continues for bp support on HD
echo noted EF 45-50%, severe TR with severe pulm HTN
fluid restriction and dietary restrictions directed for ESRD
-
-
Date of Service: August 13, 2025
CC / HPI / ROS
-
Chief Complaint:
ESRD
History of Present Illness:
ESRD Tuesday
Chronically hemodynamically labile on midodrine support
Hemoglobin low 7.0
tolerated HD yesterday
Review of Systems:
No chest pain
Chronic O2 requirement
Labs
-
Labs:
WBC 7.6 10^3/uL (4.8-10.8) 08/13/25 05:33
RBC 2.37 10^6/uL (4.70-6.10) L 08/13/25 05:33
Hgb 7.0 g/dL (13.0-18.0) L 08/13/25 05:33
Hct 21.7 % (39.0-52.0) L 08/13/25 05:33
Plt Count 176 10^3/uL (130-400) 08/13/25 05:33
Sodium 134 mmol/L (135-145) L 08/13/25 05:33
Potassium 3.7 mmol/L (3.5-5.1) 08/13/25 05:33
Chloride 98 mmol/L (98-107) 08/13/25 05:33
Carbon Dioxide 30 mmol/L (22-30) 08/13/25 05:33
BUN 13 mg/dl (9-20) 08/13/25 05:33
Creatinine 5.0 mg/dL (0.7-1.3) H* 08/13/25 05:33
eGFR 13.21 08/13/25 05:33
Glucose 86 mg/dl (70-99) 08/13/25 05:33
Calcium 7.9 mg/dl (8.4-10.2) L 08/13/25 05:33
Phosphorus 4.1 mg/dl (2.5-4.5) 08/12/25 04:20
Jne-W-Fyfzhdbcdmq Pept Cancelled 08/08/25 09:32
Albumin 3.4 g/dl (3.5-5.0) L 08/13/25 05:33
Physical Exam
-
Vital Signs:
Vital Signs
Temp Pulse Resp BP Pulse Ox
98.1 F 72 16 97/62 96
08/13/25 10:45 08/13/25 11:56 08/13/25 10:45 08/13/25 11:56 08/13/25 10:45
Cardiovascular:: Regular rate and rhythm
Respiratory:: Bilateral: CTA
Lung Excursion:: Normal
Abdomen:: Nontender and Soft
Bowel Sounds:: Normal
Extremity Edema:: None: Bilateral:
--- NOTE | 2025-08-13 15:09 | W.PN.CARDCBS ---
Addendum entered and electronically signed by Aniceto Zurita MD 08/13/25 16:09:
I saw and examined the patient.
The PLASTIC TOOL MAKER or PA's note was reviewed and I agree with the note.
Comment: General: Well developed, well nourished in NAD.
Neck: Supple, no JVD, HJR, carotids +2 B/L, no bruits bilaterally.
Heart: Non displaced PMI, irregular, no murmurs, No S3, S4, no rubs.
Lungs: Scattered rhonchi
Extremities: No clubbing, cyanosis or edema bilaterally.
Neuro: Grossly nonfocal, awake, alert and oriented x3.
Stable cardiology status. Continue IV heparin to Coumadin.
Original Note:
Today's Communication / Plan
-
Warfarin 15 mg again tonight, if no significant jump in INR then will give 17 mg tomorrow night
INR goal 2.5-3.5
Impression / Plan
-
PCP: Dr. Flores at [facility]
Primary Supervisor [employer]: last seen in the office by Dr. Lovell in 2018
Assessment:
Admitted with bleeding fistula and GIB 08/06/2025
Previous admission for HD fistula bleeding 09/10/24 until 09/14/2024 s/p fistula revision 09/13/24
s/p left forearm AV fistula
Revision 09/13/2024
Revision 12/20/2024
Anemia, multifactorial
Permanent atrial fibrillation
Recovered NICM, EF was 25-30% by echo 05/26/22, then 50% by echo 09/13/24
Chronic HFrEF
s/p SJM Mechanical MVR 1997
Chronic Coumadin therapy
Severe tricuspid regurgitation
h/o ICD explant due to infection 2005
HTN
ESRD on HD MWF
h/o CVA, by review of CT head with an area of encephalomalacia involving the right anterolateral frontal lobe 07/2015
Obstructive sleep apnea
Former smoker
ECHO 06/2018: Global hypokinesis, most marked in anterior and septal segments, EF 35 to 40%, normal function of mechanical MVR with peak/mean gradients 19/7 mmHg, no MR, dilated left atrium, dilated right ventricle, moderate TR, moderate pulmonary
hypertension, PAP 52 to 57 mmHg, atrial septal aneurysm
Echo 05/26/22: EF 25-30%, mechanical mitral valve with peak/mean 13/5 mmHg and no MR, aortic valve is normal, dilated and hypokinetic RV with dilated RA and mod MR with PAP 50-55 mmHg
ECHO 09/13/24: EF 50%, mild concentric LVH, flattened septum in systole and diastole consistent with RV pressure and volume overload, well-seated mechanical mitral valve with mean gradient 6 mmHg, mild to moderate TR, PAP 75 to 80 mmHg
Echo 08/08/2025: EF 45 to 50%, hypokinetic RV, dilated right atrium, St Jefry mechanical MVR with peak/mean gradient 16/7 mmHg with mild MR, sev TR with PAP 79 mmHg. Echo similar to 09/2024
Plan:
-Patient admitted with GIB and bleeding AVF and cardiology was initially consulted for supratherapeutic INR in the setting of chronic warfarin therapy for mechanical MVR.
-Patient had upper endoscopy on 08/08/2025 that showed multiple gastric polyps and nonbleeding angiectasia in the duodenum. Patient had colonoscopy with polypectomy 08/12/2025.
-Heparin gtt restarted 08/12/2025 PM and patient was given warfarin 15 mg on 08/12/2025. Patient reports he was taking warfarin 18 mg daily prior to admission.
-INRs reviewed by me, INR was 1.10 on 08/12/2025 and INR is up to 1.12 on 08/13/2025. Warfarin 15 mg ordered 08/13/2025. If there is not a more significant increase in INR by 08/14/2025 then will increase warfarin to 17 mg daily.
-INR goal is 2.5-3.5 and INR's are generally managed with blood draw every 1 to 2 weeks at [facility] where he lives
-Patient has traditionally been bridged with heparin gtt when INR has been subtherapeutic due to previous mechanical MVR and CVA.
-A-fib is permanent. HR control has been limited by hypotension in past, but new to digoxin 62.5 mcg daily this admission. Check to digoxin level 08/13/2025, orders placed by me.
-Patient was not taking any AV ismael blockers prior to admission due to hypotension
-Outpatient dose of midodrine 10 mg every 6 hours plus Florinef 0.1 mg daily has been continued
-Patient reports he had cardiac arrest with amiodarone at [facility] in 2014, but cannot find any records of that or records that Amio is listed as an allergy/intolerance
-EF was 25% in 2021, then 50% by echo 09/13/2024 and relatively stable by echo 08-31 when EF was 45 to 50%
-Patient was intolerant to Toprol-XL due to hypotension
-Patient is not a candidate for MALU/ARB/Aldactone/SGLT2 due to hemodialysis
-Volume status being managed with HD
Clinical summary: Patient came to the ER today with a bleeding fistula, dark blood in his stools and an elevated INR, cardiology is consulted due to the need for warfarin OAC in the setting of mechanical MVR. Patient is originally from [facility]
[place] and has a complicated past medical history spread out over the [facility]. He had a mechanical mitral valve while living in [place], [place] in 1997. He says this was for a history rheumatic heart disease as a child. Then sometime around 2008
he moved to [place], [place] with his and around that time he says he had a marked deterioration in his renal function and was started on hemodialysis in response to hypertensive nephropathy. He says that since then he had chronic
infections related to his hemodialysis port. During an admission to [facility] in 2014 he required a trach. With the addition of trach to his dialysis, he could only be transferred to [facility] (now [facility]). He has
been there ever since even though his trach was removed. Patient lives in a 4 bedroom unit at [facility] where he is a long-term resident and travels by [place] 3x a week for HD sessions. All of his family lives in [place], and his has since
him, he has not been visited by family in years. Afib is permanent and patient says he can hear his heart beat due to mechanical valve, but no palpitations. Patient thinks he had a cardiac arrest while admitted to [facility] years ago that was
related to amiodarone. He was on digoxin in 2014, but it was stopped for unclear reasons. Patient says he has chest pain, he has chronic chest pain. INR was 6.52 on admission this morning and he says INRs are checked every Tuesday with INR goal of
2.5 to 3.5. Vascular surgery evaluated patient and they graft is patent without obvious stenosis and bleeding thought to be from supratherapeutic INR and so no surgical intervention recommended. GI will see patient as well.
Progress Note - Supervisor Brew House
Subjective
Date of Service: August 13, 2025
He feels well, no pain
Objective
Labs:
08/13/25 05:33
08/13/25 05:33
Labs
Hgb 7.0 g/dL (13.0-18.0) L 08/13/25 05:33
Hct 21.7 % (39.0-52.0) L 08/13/25 05:33
Plt Count 176 10^3/uL (130-400) 08/13/25 05:33
PT 14.9 Sec (11.4-14.6) H 08/13/25 05:33
INR 1.12 08/13/25 05:33
APTT > 200 Sec (23.4-35.0) H* 08/13/25 12:28
Sodium 134 mmol/L (135-145) L 08/13/25 05:33
Potassium 3.7 mmol/L (3.5-5.1) 08/13/25 05:33
BUN 13 mg/dl (9-20) 08/13/25 05:33
Creatinine 5.0 mg/dL (0.7-1.3) H* 08/13/25 05:33
Glucose 86 mg/dl (70-99) 08/13/25 05:33
Vital Signs and I&O:
Vital Signs
Temp Pulse Resp BP Pulse Ox
98.1 F 72 16 97/62 96
08/13/25 10:45 08/13/25 11:56 08/13/25 10:45 08/13/25 11:56 08/13/25 10:45
Vital Signs
Temp Pulse Resp BP Pulse Ox
98.1 F 72 16 97/62 96
08/13/25 10:45 08/13/25 11:56 08/13/25 10:45 08/13/25 11:56 08/13/25 10:45
Intake & Output
08/11/25 08/12/25 08/13/25 08/14/25
06:59 06:59 06:59 06:59
Intake Total 500 / 500 1200 / 1200 480 / 480
Output Total 0 / 0
Balance 500 / 500 1200 / 1200 480 / 480
Physical Exam
Physical Exam
GEN: NAD. Sleeping initially and then awakens easily and is AAO x3
LUNGS: 3 L NC. No wheeze
CV: Afib on tele.
--- NOTE | 2025-08-13 15:16 | CM ---
CM continues to follow for return to [facility]. Possible discharge tomorrow per MD. Will need ambulance transport.
[2025-08-13 15:26] VITALS: BP 96/56
[2025-08-13 16:57] LABS: Glucose - Point of Care 140 mg/dl (70-99)
[2025-08-13] MEDS: HEPARIN 25000 UNITS/250 ML IV (17:36)
[2025-08-13] MEDS: COUMADIN 15 MG PO (17:42)
[2025-08-13 19:00] VITALS: BP 111/50
[2025-08-13] MEDS: SENOKOT 17.2 MG PO (21:21)
[2025-08-13] MEDS: NEURONTIN 300 MG PO (21:21)
[2025-08-13 21:25] LABS: Glucose - Point of Care 119 mg/dl (70-99)
[2025-08-13 22:27] LABS: Digoxin 0.4 ng/ml (0.8-2.0)
[2025-08-13 23:00] VITALS: BP 112/65
[2025-08-13] MEDS: DESYREL 150 MG PO (23:49)
[2025-08-14] VITALS (8 sets, daily range): BP systolic 94–113; BP diastolic 51–79; BMI 31.7
[2025-08-14 01:40] LABS: APTT 63.2 Sec (23.4-35.0)
[2025-08-14] MEDS: SYNTHROID 112 MCG PO (05:07)
[2025-08-14] MEDS: SYNTHROID 100 MCG PO (05:07)
[2025-08-14 05:32] LABS: Hematocrit 21.7 % (39.0-52.0); Hemoglobin 7.1 g/dL (13.0-18.0); Mean Corp Hgb Conc. 32.7 g/dL (33.0-37.0); Mean Corpuscular Volume 91.6 fL (80.0-94.0); Platelet Count 192 10^3/uL (130-400); Red Cell Dist. Width 16.5 % (11.5-14.5)
[2025-08-14 05:41] LABS: INR 1.35; PT 16.9 Sec (11.4-14.6)
[2025-08-14 05:43] LABS: APTT 107.2 Sec (23.4-35.0)
[2025-08-14 05:56] LABS: ALT (SGPT) 29 U/L (0-50); AST (SGOT) 26 U/L (17-59); Albumin 3.4 g/dl (3.5-5.0); Alkaline Phosphatase 117 U/L (38-126); Blood Urea Nitrogen 20 mg/dl (9-20); Calcium 7.7 mg/dl (8.4-10.2); Carbon Dioxide 30 mmol/L (22-30); Chloride 97 mmol/L (98-107); Estimated Creatinine Clearance 16 ml/min; Glucose 105 mg/dl (70-99); Potassium 3.8 mmol/L (3.5-5.1); Sodium 133 mmol/L (135-145); Total Protein 6.3 g/dl (6.3-8.2); eGFR 8.97
--- NOTE | 2025-08-14 07:32 | PTCARENOTE ---
PTT 107.2, in therapeutic range, no change, continue rate of 10/1200 . Redraw PTT in 6 hours.
[2025-08-14] MEDS: FLOVENT 110 MCG INHALER 2 PUFF INH ×2 (08:19→19:28)
[2025-08-14] MEDS: ZYRTEC 5 MG PO (08:31)
[2025-08-14] MEDS: EMLA CREAM 5 GRAM TOPICAL (08:31)
[2025-08-14] MEDS: FLORINEF 0.1 MG PO (08:32)
[2025-08-14] MEDS: PROTONIX 40 MG PO (08:32)
[2025-08-14] MEDS: WELLBUTRIN SR (12 hour sustained release) 150 MG PO (08:33)
[2025-08-14 08:44] LABS: Glucose - Point of Care 102 mg/dl (70-99)
[2025-08-14] MEDS: NOVOLOG FLEXPEN-LOW RESISTANCE SC ×3 (08:57→16:54)
[2025-08-14] MEDS: RETACRIT 12000 UNITS IV (09:48)
[2025-08-14] MEDS: MANNITOL 25% 12.5 GRAMS IV (10:35)
[2025-08-14] MEDS: FLEXBUMIN 25% FOR HEMODIALYSIS 12.5 GRAMS IV ×2 (10:47→11:48)
--- NOTE | 2025-08-14 11:41 | W.PN.NEPH.HD ---
Assessment
-
pt seen during HD
vitals stable on midodrine and florinef
AVG works well
6kg over EDW since C scope prep
cont UF as tolerates
high dose TIO for anemia and 1 unit PRBC
Progress Note - Hemodialysis
-
Date of Service: August 14, 2025
Duration: 45 minutes and 3 hours
Potassium Bath: 2
Calcium Bath: 2.5
Opti-Dialyzer: 160
Ultrafiltration: Other (2.5-3kg)
Blood Flow: 400
Dialysate Flow: 600
Heparin: no
EPO: [id number]
[2025-08-14 11:51] LABS: Glucose - Point of Care 93 mg/dl (70-99)
--- NOTE | 2025-08-14 12:00 | W.PN.CARDCBS ---
Addendum entered and electronically signed by William Gooden MD 08/14/25 15:32:
I saw and examined the patient.
The Signal Maintainer's note was reviewed and I agree with the note.
Comment: Briefly, 49-year-old man past medical history of mechanical mitral valve replacement, permanent atrial fibrillation, prior CVA, end-stage renal disease on dialysis who presented with dark stools concerning for GI bleed and was found to have
supratherapeutic INR.
Given prior mechanical mitral valve would continue bridging to therapeutic INR with IV heparin
INR is uptrending but still not at goal 2.5�3.5
Continue warfarin 15 mg daily
Patient was previously taking 18 mg daily however he presented with an INR of 6.5 and therefore I am hesitant to recommend going back to this dose
Weight is up slightly, but was on hemodialysis earlier today the time of my evaluation. Will defer management of his volume to nephrology.
Rest per Cheyenne Parekh
Original Note:
Today's Communication / Plan
-
INR should be greater than 2 before heparin gtt is stopped and patient is discharged
Warfarin 15 mg tonight and recheck INR in a.m.
Impression / Plan
-
PCP: Dr. Flores at [facility]
Primary Entry Level Electrical Engineer: last seen in the office by Dr. Lovell in 2019
Assessment:
Admitted with bleeding fistula and GIB 08/06/2025
Previous admission for HD fistula bleeding 09/10/24 until 09/14/2024 s/p fistula revision 09/13/24
s/p left forearm AV fistula
Revision 09/13/2024
Revision 12/20/2024
Anemia, multifactorial
Permanent atrial fibrillation
Recovered NICM, EF was 25-30% by echo 05/26/22, then 50% by echo 09/13/24
Chronic HFrEF
s/p SJM Mechanical MVR 1997
Chronic Coumadin therapy
Severe tricuspid regurgitation
h/o ICD explant due to infection 2005
HTN
ESRD on HD MWF
h/o CVA, by review of CT head with an area of encephalomalacia involving the right anterolateral frontal lobe 07/2015
Obstructive sleep apnea
Former smoker
ECHO 06/2018: Global hypokinesis, most marked in anterior and septal segments, EF 35 to 40%, normal function of mechanical MVR with peak/mean gradients 19/7 mmHg, no MR, dilated left atrium, dilated right ventricle, moderate TR, moderate pulmonary
hypertension, PAP 52 to 57 mmHg, atrial septal aneurysm
Echo 05/26/22: EF 25-30%, mechanical mitral valve with peak/mean 13/5 mmHg and no MR, aortic valve is normal, dilated and hypokinetic RV with dilated RA and mod MR with PAP 50-55 mmHg
ECHO 09/13/24: EF 50%, mild concentric LVH, flattened septum in systole and diastole consistent with RV pressure and volume overload, well-seated mechanical mitral valve with mean gradient 6 mmHg, mild to moderate TR, PAP 75 to 80 mmHg
Echo 08/08/2025: EF 45 to 50%, hypokinetic RV, dilated right atrium, St Jefry mechanical MVR with peak/mean gradient 16/7 mmHg with mild MR, sev TR with PAP 79 mmHg. Echo similar to 09/2024
Plan:
-Patient admitted with GIB and bleeding AVF and cardiology was initially consulted for supratherapeutic INR in the setting of chronic warfarin therapy for mechanical MVR.
-Patient had upper endoscopy on 08/08/2025 that showed multiple gastric polyps and nonbleeding angiectasia in the duodenum. Patient had colonoscopy with polypectomy 08/12/2025.
-Heparin gtt restarted 08/12/2025 PM and patient was given warfarin 15 mg on 08/12/2025 and again 08/13/2025. Patient has traditionally been bridged with heparin gtt when INR has been subtherapeutic due to previous mechanical MVR and CVA.
-INRs reviewed by me, INR is 1.37 on 08/13/2025. Continue warfarin 15 mg again on 08/14/2025, orders placed by me
-INR goal is 2.5-3.5 and INR's are generally managed with blood draw every 1 to 2 weeks at [facility] where he lives. Patient reports he was taking warfarin 18 mg daily prior to admission
-A-fib is permanent. HR control has been limited by hypotension in past, but new to digoxin 62.5 mcg daily this admission. HR is now generally less than 100 which is an improvement
-Digoxin level 0.4 on labs reviewed by me 08/14/2025
-Patient was not taking any AV ismael blockers prior to admission due to hypotension
-Outpatient dose of midodrine 10 mg every 6 hours plus Florinef 0.1 mg daily has been continued
-Patient reports he had cardiac arrest with amiodarone at [facility] in 2014, but cannot find any records of that or records that Amio is listed as an allergy/intolerance
-EF was 25% in 2021, then 50% by echo 09/13/2024 and relatively stable by echo 08-31 when EF was 45 to 50%
-Patient was intolerant to Toprol-XL due to hypotension
-Patient is not a candidate for MALU/ARB/Aldactone/SGLT2 due to hemodialysis
-Volume status being managed with HD
-INR should be greater than 2 before heparin gtt is stopped and patient is discharged
Clinical summary: Patient came to the ER today with a bleeding fistula, dark blood in his stools and an elevated INR, cardiology is consulted due to the need for warfarin OAC in the setting of mechanical MVR. Patient is originally from [facility]
[place] and has a complicated past medical history spread out over the [facility]. He had a mechanical mitral valve while living in [place], [place] in 1997. He says this was for a history rheumatic heart disease as a child. Then sometime around 2008
he moved to [place], [place] with his and around that time he says he had a marked deterioration in his renal function and was started on hemodialysis in response to hypertensive nephropathy. He says that since then he had chronic
infections related to his hemodialysis port. During an admission to [facility] in 2014 he required a trach. With the addition of trach to his dialysis, he could only be transferred to [facility] (now [facility]). He has
been there ever since even though his trach was removed. Patient lives in a 4 bedroom unit at [facility] where he is a long-term resident and travels by [place] 3x a week for HD sessions. All of his family lives in [place], and his has since
him, he has not been visited by family in years. Afib is permanent and patient says he can hear his heart beat due to mechanical valve, but no palpitations. Patient thinks he had a cardiac arrest while admitted to [facility] years ago that was
related to amiodarone. He was on digoxin in 2015, but it was stopped for unclear reasons. Patient says he has chest pain, he has chronic chest pain. INR was 6.52 on admission this morning and he says INRs are checked every Tuesday with INR goal of
2.5 to 3.5. Vascular surgery evaluated patient and they graft is patent without obvious stenosis and bleeding thought to be from supratherapeutic INR and so no surgical intervention recommended. GI will see patient as well.
Progress Note - Entry Level Electrical Engineer
Subjective
Date of Service: August 14, 2025
He feels well, he says he is having HD today
Objective
Labs:
08/14/25 05:03
08/14/25 05:03
Labs
Hgb 7.1 g/dL (13.0-18.0) L 08/14/25 05:03
Hct 21.7 % (39.0-52.0) L 08/14/25 05:03
Plt Count 192 10^3/uL (130-400) 08/14/25 05:03
PT 16.9 Sec (11.4-14.6) H 08/14/25 05:03
INR 1.35 08/14/25 05:03
APTT 107.2 Sec (23.4-35.0) H 08/14/25 05:03
APTT Cancelled 08/14/25 05:03
Sodium 133 mmol/L (135-145) L 08/14/25 05:03
Potassium 3.8 mmol/L (3.5-5.1) 08/14/25 05:03
BUN 20 mg/dl (9-20) 08/14/25 05:03
Creatinine 6.9 mg/dL (0.7-1.3) H* 08/14/25 05:03
Glucose 105 mg/dl (70-99) H 08/14/25 05:03
Digoxin Cancelled 08/13/25 20:15
Vital Signs and I&O:
Vital Signs
Temp Pulse Resp BP Pulse Ox
98 F 91 20 100/59 99
08/14/25 09:53 08/14/25 09:53 08/14/25 09:53 08/14/25 09:53 08/14/25 07:30
Vital Signs
Temp Pulse Resp BP Pulse Ox
98 F 91 20 100/59 99
08/14/25 09:53 08/14/25 09:53 08/14/25 09:53 08/14/25 09:53 08/14/25 07:30
Intake & Output
08/12/25 08/13/25 08/14/25 08/15/25
06:59 06:59 06:59 06:59
Intake Total 1200 / 1200 480 / 480 720 / 720 250 / 250
Output Total 0 / 0
Balance 1200 / 1200 480 / 480 720 / 720 250 / 250
Physical Exam
Physical Exam
GEN: NAD. AAO x3
LUNGS: 3 L NC. No wheeze
CV: Afib on tele.
[2025-08-14] MEDS: LAMICTAL 200 MG PO ×2 (12:42→22:50)
[2025-08-14] MEDS: LANOXIN 62.5 MCG PO (12:48)
--- NOTE | 2025-08-14 12:55 | W.PN.HOSP.TC ---
Today's Communication/Plan
-
hep ggt, coumadin dosing
inr f/u
Assessment / Plan
Assessment / Plan
49-year-old with complex past medical history including end-stage renal disease on hemodialysis via left upper extremity AV fistula, chronic hypoxic respiratory failure on home O2, obstructive sleep apnea, congestive heart failure, chronic anemia,
atrial fibrillation, mechanical mitral valve replacement on anticoagulation with warfarin who presents to the emergency department with complaints of bleeding from fistula site after hemodialysis in the setting of supratherapeutic INR to 7.6 on
Tuesday, also reports approximately 3 days of bloody bowel movements. He was found to be hypotensive, in rapid afib with RVR.
EGD 08/08/25
Impression:
- Normal esophagus. no esophageal varices seen
- Multiple gastric polyps. Biopsied. Clip was placed to stop
oozing at biopsy site. Clip crating and moving estimator: Shahiya.
- Portal hypertensive gastropathy. no gastric varices seen.
- One non-bleeding angioectasia in the duodenum.
Recommendation:
- Continue present medications.
- restart Heparin in 6 hours
- colonoscopy Tuesday with 2 day prep over the weekend and if
negative needs capsule endoscopy
Hematochezia in setting of supratherapeutic INR
-s/p 5mg PO vitamin K in the ER with reversal of Coumadin
-s/p EGD morning 08/08 without finding of varices, multiple gastric polyps, one non-bleeding angioectasis in duodenum
- Colonoscopy 08/12 with no obvious rectal bleeding, polyps removed.
� GI outpatient follow-up for pathology
� Repeat colonoscopy in 3 years
� Recommend capsule endoscopy outpatient
-continue PPI oral
Acute Blood Loss Anemia
-s/p 2 units PRBC total
-Hg stable
Mechanical Mitral Valve
-goal INR 2.5-3
-Cardiology consulted to help guide bridging therapy
-continue IV Heparin gtt for bridging; Can start Coumadin back 08/12 as per GI- Coumadin dosing as per cards
-INR should be greater than 2 before heparin gtt is stopped and patient is discharged
Warfarin 15 mg tonight and recheck INR in a.m.
Bleeding AV fistula - Hemostasis achieved
- vascular consulted, fistula u/s study with patent graft; small nonocclusive thrombus without significant stenosis
- no need for intervention unless bleeds again in setting of therapeutic INR
Atrial fibrillation with RVR- permanent afib on coumadin.
-IV heparin gtt as above
-digoxin started per Cardiology
End-stage renal disease
-appreciate renal consult
-HD MWF
Chronic Hypoxia - JOVITA, CHF (no acute exacerbation)
- stable on 3 L O2. No CPAP.
Chronic orthostatic hypotension
- continue midodrine/fludrocortisone
Sz d/o
- lamictal continued
Hypothyroid
- on levothyroxine
Diabetes
-ISS low
DVT PPX - SCD
Code status - Full code
Anticipated Discharge: 24 - 48 hours
Subjective/Interval History
-
Date of Service: August 14, 2025
No acute events overnight
Objective Data
-
Labs:
Laboratory Results
08/14/25 08/14/25 08/14/25
00:57 05:03 05:03
WBC 7.3
Hgb 7.1 L
Hct 21.7 L
Plt Count 192
PT 16.9 H
INR 1.35
APTT 63.2 H 107.2 H Cancelled
Sodium 133 L
Potassium 3.8
Chloride 97 L
Carbon Dioxide 30
BUN 20
Creatinine 6.9 H*
Glucose 105 H
Calcium 7.7 L
Total Bilirubin 0.9
AST 26
ALT 29
Alkaline Phosphatase 117
08/14/25
12:00
WBC
Hgb
Hct
Plt Count
PT
INR
APTT Pending
Sodium
Potassium
Chloride
Carbon Dioxide
BUN
Creatinine
Glucose
Calcium
Total Bilirubin
AST
ALT
Alkaline Phosphatase
Vital Signs:
Vital Signs
Temp Pulse Resp BP Pulse Ox
97.6 F 105 18 94/52 100
08/14/25 11:30 08/14/25 11:30 08/14/25 11:30 08/14/25 11:30 08/14/25 11:30
I&O
08/13/25 08/14/25 08/15/25
06:59 06:59 06:59
Intake Total 480 / 480 720 / 720 250 / 250
Output Total 0 / 0
Balance 480 / 480 720 / 720 250 / 250
Review of Systems
-
History Source: Patient
All other systems: Not reviewed unless documented
Data Reviewed
-
Diagnostic Radiology: Report Reviewed by me
Labs: Labs Reviewed by me
[2025-08-14 13:37] LABS: APTT 108.9 Sec (23.4-35.0)
[2025-08-14 16:50] LABS: Glucose - Point of Care 128 mg/dl (70-99)
[2025-08-14] MEDS: COUMADIN 15 MG PO (17:31)
[2025-08-14] MEDS: HEPARIN 25000 UNITS/250 ML IV (19:40)
[2025-08-14 21:10] LABS: Glucose - Point of Care 97 mg/dl (70-99)
[2025-08-14] MEDS: SENOKOT 17.2 MG PO (22:50)
[2025-08-14] MEDS: NEURONTIN 300 MG PO (22:50)
[2025-08-14] MEDS: ULTRAM 25 MG PO (23:52)
[2025-08-14] MEDS: DESYREL 150 MG PO (23:53)
[2025-08-15 03:00] VITALS: BP 97/50
[2025-08-15 03:10] VITALS: BMI 31.7
[2025-08-15] MEDS: SYNTHROID 112 MCG PO (05:38)
[2025-08-15] MEDS: SYNTHROID 100 MCG PO (05:38)
[2025-08-15 05:39] LABS: Hematocrit 24.7 % (39.0-52.0); Hemoglobin 7.6 g/dL (13.0-18.0); Mean Corp Hgb Conc. 30.8 g/dL (33.0-37.0); Mean Corpuscular Volume 93.2 fL (80.0-94.0); Platelet Count 189 10^3/uL (130-400); Red Cell Dist. Width 17.4 % (11.5-14.5)
[2025-08-15 05:44] LABS: INR 1.71; PT 20.6 Sec (11.4-14.6)
[2025-08-15 05:47] LABS: APTT 125.6 Sec (23.4-35.0)
[2025-08-15 05:57] LABS: ALT (SGPT) 31 U/L (0-50); AST (SGOT) 37 U/L (17-59); Albumin 3.7 g/dl (3.5-5.0); Alkaline Phosphatase 131 U/L (38-126); Blood Urea Nitrogen 12 mg/dl (9-20); Calcium 8.3 mg/dl (8.4-10.2); Carbon Dioxide 32 mmol/L (22-30); Chloride 101 mmol/L (98-107); Estimated Creatinine Clearance 24 ml/min; Glucose 105 mg/dl (70-99); Potassium 3.9 mmol/L (3.5-5.1); Sodium 137 mmol/L (135-145); Total Protein 6.6 g/dl (6.3-8.2); eGFR 14.60
[2025-08-15 07:28] LABS: Glucose - Point of Care 90 mg/dl (70-99)
[2025-08-15 07:44] VITALS: BP 101/69
[2025-08-15] MEDS: FLOVENT 110 MCG INHALER 2 PUFF INH ×2 (07:44→19:48)
[2025-08-15] MEDS: NOVOLOG FLEXPEN-LOW RESISTANCE SC ×3 (09:51→17:13)
[2025-08-15] MEDS: PROTONIX 40 MG PO (09:53)
[2025-08-15] MEDS: LAMICTAL 200 MG PO ×2 (09:53→21:54)
[2025-08-15] MEDS: FLORINEF 0.1 MG PO (09:54)
[2025-08-15 11:30] VITALS: BP 109/55
[2025-08-15 11:57] LABS: Glucose - Point of Care 98 mg/dl (70-99)
[2025-08-15] MEDS: LANOXIN 62.5 MCG PO (11:59)
[2025-08-15 12:28] LABS: APTT 161.4 Sec (23.4-35.0)
--- NOTE | 2025-08-15 12:30 | PTCARENOTE ---
PTT 161.4. per Heparin protocol drip stopped for 1 hour and 2 be restarted from 1100units per hour to 900units per hour, will continue to monitor.
--- NOTE | 2025-08-15 12:41 | W.PN.CARDCBS ---
Today's Communication / Plan
-
Warfarin 15mg daily
Cont heparin bridge for goal INR 2.5-3.5
Impression / Plan
-
PCP: Dr. Flores at [facility]
Primary Vice President And Portfolio Manager: last seen in the office by Dr. Lovell in 2018
Assessment:
Admitted with bleeding fistula and GIB 08/06/2025
Previous admission for HD fistula bleeding 09/10/24 until 09/14/2024 s/p fistula revision 09/13/24
s/p left forearm AV fistula
Revision 09/13/2024
Revision 12/20/2024
Anemia, multifactorial
Permanent atrial fibrillation
Recovered NICM, EF was 25-30% by echo 05/26/22, then 50% by echo 09/13/24
Chronic HFrEF
s/p SJM Mechanical MVR 1997
Chronic Coumadin therapy
Severe tricuspid regurgitation
h/o ICD explant due to infection 2005
HTN
ESRD on HD MWF
h/o CVA, by review of CT head with an area of encephalomalacia involving the right anterolateral frontal lobe 07/2015
Obstructive sleep apnea
Former smoker
ECHO 06/2018: Global hypokinesis, most marked in anterior and septal segments, EF 35 to 40%, normal function of mechanical MVR with peak/mean gradients 19/7 mmHg, no MR, dilated left atrium, dilated right ventricle, moderate TR, moderate pulmonary
hypertension, PAP 52 to 57 mmHg, atrial septal aneurysm
Echo 05/26/22: EF 25-30%, mechanical mitral valve with peak/mean 13/5 mmHg and no MR, aortic valve is normal, dilated and hypokinetic RV with dilated RA and mod MR with PAP 50-55 mmHg
ECHO 09/13/24: EF 50%, mild concentric LVH, flattened septum in systole and diastole consistent with RV pressure and volume overload, well-seated mechanical mitral valve with mean gradient 6 mmHg, mild to moderate TR, PAP 75 to 80 mmHg
Echo 08/08/2025: EF 45 to 50%, hypokinetic RV, dilated right atrium, St Jefry mechanical MVR with peak/mean gradient 16/7 mmHg with mild MR, sev TR with PAP 79 mmHg. Echo similar to 09/2024
Plan:
-Patient admitted with GIB and bleeding AVF and cardiology was initially consulted for supratherapeutic INR in the setting of chronic warfarin therapy for mechanical MVR. Goal INR 2.5-3.5.
-Patient had upper endoscopy on 08/08/2025 that showed multiple gastric polyps and nonbleeding angiectasia in the duodenum. Patient had colonoscopy with polypectomy 08/12/2025.
-Heparin gtt restarted 08/12/2025 PM and patient was given warfarin 15 mg on 08/12, 08/13 and 08/14. Patient has traditionally been bridged with heparin gtt when INR has been subtherapeutic due to previous mechanical MVR and CVA.
-INRs reviewed by me, INR is trending up to 1.71 on 08/14. Continue warfarin 15 mg, orders placed by me.
-INR should be greater than 2.5 before heparin gtt is stopped
-A-fib is permanent. HR control has been limited by hypotension in past, but new to digoxin 62.5 mcg daily this admission. HR is now generally less than 100 which is an improvement
-Digoxin level 0.4 on labs reviewed by me 08/14/2025
-Patient reports he had cardiac arrest with amiodarone at [facility] in 2014, but cannot find any records of that or records that Amio is listed as an allergy/intolerance
-EF was 25% in 2021, then 50% by echo 09/13/2024 and relatively stable by echo 08-31 when EF was 45 to 50%
-Patient was intolerant to Toprol-XL due to hypotension
-Patient is not a candidate for MALU/ARB/Aldactone/SGLT2 due to hemodialysis
-Volume status being managed with HD
-Outpatient dose of midodrine 10 mg every 6 hours plus Florinef 0.1 mg daily has been continued
Clinical summary: Patient came to the ER today with a bleeding fistula, dark blood in his stools and an elevated INR, cardiology is consulted due to the need for warfarin OAC in the setting of mechanical MVR. Patient is originally from [facility]
[place] and has a complicated past medical history spread out over the [facility]. He had a mechanical mitral valve while living in [place], [place] in 1997. He says this was for a history rheumatic heart disease as a child. Then sometime around 2008
he moved to [place], [place] with his and around that time he says he had a marked deterioration in his renal function and was started on hemodialysis in response to hypertensive nephropathy. He says that since then he had chronic
infections related to his hemodialysis port. During an admission to [facility] in 2014 he required a trach. With the addition of trach to his dialysis, he could only be transferred to [facility] (now [facility]). He has
been there ever since even though his trach was removed. Patient lives in a 4 bedroom unit at [facility] where he is a long-term resident and travels by [place] 3x a week for HD sessions. All of his family lives in [place], and his has since
him, he has not been visited by family in years. Afib is permanent and patient says he can hear his heart beat due to mechanical valve, but no palpitations. Patient thinks he had a cardiac arrest while admitted to [facility] years ago that was
related to amiodarone. He was on digoxin in 2015, but it was stopped for unclear reasons. Patient says he has chest pain, he has chronic chest pain. INR was 6.52 on admission this morning and he says INRs are checked every Tuesday with INR goal of
2.5 to 3.5. Vascular surgery evaluated patient and they graft is patent without obvious stenosis and bleeding thought to be from supratherapeutic INR and so no surgical intervention recommended. GI will see patient as well.
Progress Note - Vice President And Portfolio Manager
Subjective
Date of Service: August 15, 2025
NAOE. Resting comfortably in bed. No cardiac complaints.
Objective
Labs:
08/15/25 05:18
08/15/25 05:18
Labs
Hgb 7.6 g/dL (13.0-18.0) L 08/15/25 05:18
Hct 24.7 % (39.0-52.0) L 08/15/25 05:18
Plt Count 189 10^3/uL (130-400) 08/15/25 05:18
PT 20.6 Sec (11.4-14.6) H 08/15/25 05:18
INR 1.71 08/15/25 05:18
APTT 161.4 Sec (23.4-35.0) H* 08/15/25 11:48
Sodium 137 mmol/L (135-145) 08/15/25 05:18
Potassium 3.9 mmol/L (3.5-5.1) 08/15/25 05:18
BUN 12 mg/dl (9-20) 08/15/25 05:18
Creatinine 4.6 mg/dL (0.7-1.3) H* 08/15/25 05:18
Glucose 105 mg/dl (70-99) H 08/15/25 05:18
Digoxin Cancelled 08/13/25 20:15
Vital Signs and I&O:
Vital Signs
Temp Pulse Resp BP Pulse Ox
98.2 F 90 16 109/55 100
08/15/25 11:30 08/15/25 11:59 08/15/25 11:30 08/15/25 11:30 08/15/25 11:30
Vital Signs
Temp Pulse Resp BP Pulse Ox
98.2 F 90 16 109/55 100
08/15/25 11:30 08/15/25 11:59 08/15/25 11:30 08/15/25 11:30 08/15/25 11:30
Intake & Output
08/13/25 08/14/25 08/15/25 08/16/25
06:59 06:59 06:59 06:59
Intake Total 480 / 480 720 / 720 1050 / 1050
Output Total 0 / 0
Balance 480 / 480 720 / 720 1050 / 1050
Physical Exam
Physical Exam
Gen: NAD, AA
HEENT: NC/AT, sclera anicteric
Neck: No JVD
CV: irregularly irregular, mech heart sounds
Lungs: CTAB
Abd: S/ND
Ext: No LE edema
Skin: Warm, dry
Neuro: Non-focal
--- NOTE | 2025-08-15 13:09 | W.PN.HOSP.TC ---
Today's Communication/Plan
-
coumadin tonight
anticipate INR over 2 tomorrow
Assessment / Plan
Assessment / Plan
49-year-old with complex past medical history including end-stage renal disease on hemodialysis via left upper extremity AV fistula, chronic hypoxic respiratory failure on home O2, obstructive sleep apnea, congestive heart failure, chronic anemia,
atrial fibrillation, mechanical mitral valve replacement on anticoagulation with warfarin who presents to the emergency department with complaints of bleeding from fistula site after hemodialysis in the setting of supratherapeutic INR to 7.6 on
Tuesday, also reports approximately 3 days of bloody bowel movements. He was found to be hypotensive, in rapid afib with RVR.
EGD 08/08/25
Impression:
- Normal esophagus. no esophageal varices seen
- Multiple gastric polyps. Biopsied. Clip was placed to stop
oozing at biopsy site. 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
- Portal hypertensive gastropathy. no gastric varices seen.
- One non-bleeding angioectasia in the duodenum.
Recommendation:
- Continue present medications.
- restart Heparin in 6 hours
- colonoscopy Tuesday with 2 day prep over the weekend and if
negative needs capsule endoscopy
Hematochezia in setting of supratherapeutic INR
-s/p 5mg PO vitamin K in the ER with reversal of Coumadin
-s/p EGD morning 08/08 without finding of varices, multiple gastric polyps, one non-bleeding angioectasis in duodenum
- Colonoscopy 08/12 with no obvious rectal bleeding, polyps removed.
� GI outpatient follow-up for pathology
� Repeat colonoscopy in 3 years
� Recommend capsule endoscopy outpatient
-continue PPI oral
Acute Blood Loss Anemia
-s/p 2 units PRBC total
-Hg stable
Mechanical Mitral Valve
-goal INR 2.5-3
-Cardiology consulted to help guide bridging therapy
-continue IV Heparin gtt for bridging; Can start Coumadin back 08/12 as per GI- Coumadin dosing as per cards
-INR should be greater than 2 before heparin gtt is stopped and patient is discharged
Warfarin 15 mg tonight and recheck INR in a.m.
Bleeding AV fistula - Hemostasis achieved
- vascular consulted, fistula u/s study with patent graft; small nonocclusive thrombus without significant stenosis
- no need for intervention unless bleeds again in setting of therapeutic INR
Atrial fibrillation with RVR- permanent afib on coumadin.
-IV heparin gtt as above
-digoxin started per Cardiology
End-stage renal disease
-appreciate renal consult
-HD MWF
Chronic Hypoxia - JOVITA, CHF (no acute exacerbation)
- stable on 3 L O2. No CPAP.
Chronic orthostatic hypotension
- continue midodrine/fludrocortisone
Sz d/o
- lamictal continued
Hypothyroid
- on levothyroxine
Diabetes
-ISS low
DVT PPX - SCD
Code status - Full code
Anticipated Discharge: Within 24 hours
Subjective/Interval History
-
Date of Service: August 15, 2025
no acute events overnight
Objective Data
-
Labs:
Laboratory Results
08/15/25 08/15/25
05:18 11:48
WBC 7.6
Hgb 7.6 L
Hct 24.7 L
Plt Count 189
PT 20.6 H
INR 1.71
APTT 125.6 H 161.4 H*
Sodium 137
Potassium 3.9
Chloride 101
Carbon Dioxide 32 H
BUN 12
Creatinine 4.6 H*
Glucose 105 H
Calcium 8.3 L
Total Bilirubin 1.0
AST 37
ALT 31
Alkaline Phosphatase 131 H
Vital Signs:
Vital Signs
Temp Pulse Resp BP Pulse Ox
98.2 F 90 16 109/55 100
08/15/25 11:30 08/15/25 11:59 08/15/25 11:30 08/15/25 11:30 08/15/25 11:30
I&O
08/14/25 08/15/25 08/16/25
06:59 06:59 06:59
Intake Total 720 / 720 1050 / 1050
Balance 720 / 720 1050 / 1050
Review of Systems
-
History Source: Patient
All other systems: Not reviewed unless documented
Physical Exam
-
General: Well Developed and No Apparent Distress
HEENT: PERRLA
Respiratory: Clear to Auscultation
Cardiac: Regular Rhythm and S1/S2
GI: Soft, Nontender and Nondistended
Musculoskeletal: No Edema
Neuro: Awake, Alert and Oriented
Psych: Calm
Data Reviewed
-
Diagnostic Radiology: Report Reviewed by me
Labs: Labs Reviewed by me
--- NOTE | 2025-08-15 16:04 | CM ---
CM continues to follow for pt's return to [facility] pending medical clearance.
Ambulance transport to be coordinated for pt's return to [facility].
[2025-08-15 16:53] LABS: Glucose - Point of Care 101 mg/dl (70-99)
--- NOTE | 2025-08-15 17:19 | PTCARENOTE ---
patient denies complaints, tolerating diet, turns with assist x1-2, vss, will continue to monitor.
--- NOTE | 2025-08-15 17:26 | W.PN.NEPH.PH ---
Today's Communication / Plan
-
HD tomorrow
Assessment/Plan
-
Impression:
End-stage renal disease.
AV graft bleed
GI bleed
Anemia.
Chronic hypotension on midodrine support
Hyperphosphatemia.
mechanical aortic valve on chronic anticoagulation
AFib.
Plan:
HD tomorrow
solomon maurice continues for bp support on HD
echo noted EF 45-50%, severe TR with severe pulm HTN
fluid restriction and dietary restrictions directed for ESRD
await INR to be therapeutic
-
-
Date of Service: August 15, 2025
CC / HPI / ROS
-
Chief Complaint:
ESRD
History of Present Illness:
ESRD Tuesday
Chronically hemodynamically labile on midodrine support
Hemoglobin low 7.6 s/p PRBC 08/14
tolerated HD yesterday
Review of Systems:
No chest pain or sob
has cough
Chronic O2 requirement
Labs
-
Labs:
WBC 7.6 10^3/uL (4.8-10.8) 08/15/25 05:18
RBC 2.65 10^6/uL (4.70-6.10) L 08/15/25 05:18
Hgb 7.6 g/dL (13.0-18.0) L 08/15/25 05:18
Hct 24.7 % (39.0-52.0) L 08/15/25 05:18
Plt Count 189 10^3/uL (130-400) 08/15/25 05:18
Sodium 137 mmol/L (135-145) 08/15/25 05:18
Potassium 3.9 mmol/L (3.5-5.1) 08/15/25 05:18
Chloride 101 mmol/L (98-107) 08/15/25 05:18
Carbon Dioxide 32 mmol/L (22-30) H 08/15/25 05:18
BUN 12 mg/dl (9-20) 08/15/25 05:18
Creatinine 4.6 mg/dL (0.7-1.3) H* 08/15/25 05:18
eGFR 14.60 08/15/25 05:18
Glucose 105 mg/dl (70-99) H 08/15/25 05:18
Calcium 8.3 mg/dl (8.4-10.2) L 08/15/25 05:18
Phosphorus 4.1 mg/dl (2.5-4.5) 08/12/25 04:20
Itl-U-Idlmvuudxeo Pept Cancelled 08/08/25 09:32
Albumin 3.7 g/dl (3.5-5.0) 08/15/25 05:18
Physical Exam
-
Vital Signs:
Vital Signs
Temp Pulse Resp BP Pulse Ox
98.2 F 90 16 109/55 100
08/15/25 11:30 08/15/25 11:59 08/15/25 11:30 08/15/25 11:30 08/15/25 11:30
Cardiovascular:: Regular rate and rhythm
Respiratory:: Bilateral: Coarse
Lung Excursion:: Normal
Abdomen:: Nontender and Soft
Bowel Sounds:: Normal
Extremity Edema:: None: Bilateral:
Fang Catheter: No
[2025-08-15] MEDS: COUMADIN 15 MG PO (18:09)
[2025-08-15 19:00] VITALS: BP 114/62
[2025-08-15 20:46] LABS: APTT 190.2 Sec (23.4-35.0)
[2025-08-15 21:10] LABS: Glucose - Point of Care 110 mg/dl (70-99)
[2025-08-15] MEDS: NEURONTIN 300 MG PO (21:55)
[2025-08-15] MEDS: SENOKOT 17.2 MG PO (21:55)
[2025-08-15] MEDS: HEPARIN 25000 UNITS/250 ML IV (21:56)
[2025-08-15 23:00] VITALS: BP 112/58
[2025-08-15] MEDS: DESYREL 150 MG PO (23:52)
[2025-08-16 04:27] LABS: Hematocrit 25.8 % (39.0-52.0); Hemoglobin 7.7 g/dL (13.0-18.0); Mean Corp Hgb Conc. 29.8 g/dL (33.0-37.0); Mean Corpuscular Volume 95.9 fL (80.0-94.0); Platelet Count 192 10^3/uL (130-400); Red Cell Dist. Width 17.2 % (11.5-14.5)
[2025-08-16 04:32] LABS: INR 2.16; PT 24.6 Sec (11.4-14.6)
[2025-08-16 04:33] LABS: APTT 81.2 Sec (23.4-35.0)
[2025-08-16 04:56] LABS: ALT (SGPT) 31 U/L (0-50); AST (SGOT) 28 U/L (17-59); Albumin 3.7 g/dl (3.5-5.0); Alkaline Phosphatase 106 U/L (38-126); Blood Urea Nitrogen 17 mg/dl (9-20); Calcium 8.4 mg/dl (8.4-10.2); Carbon Dioxide 31 mmol/L (22-30); Chloride 101 mmol/L (98-107); Estimated Creatinine Clearance 17 ml/min; Glucose 83 mg/dl (70-99); Potassium 4.5 mmol/L (3.5-5.1); Sodium 138 mmol/L (135-145); Total Protein 6.6 g/dl (6.3-8.2); eGFR 10.01
[2025-08-16] MEDS: SYNTHROID 100 MCG PO (05:59)
[2025-08-16] MEDS: SYNTHROID 112 MCG PO (05:59)
[2025-08-16 06:00] VITALS: BMI 31.4
[2025-08-16 06:58] VITALS: BP 104/61
[2025-08-16 07:04] LABS: Glucose - Point of Care 94 mg/dl (70-99)
[2025-08-16] MEDS: FLOVENT 110 MCG INHALER 2 PUFF INH ×2 (08:03→17:20)
[2025-08-16] MEDS: NOVOLOG FLEXPEN-LOW RESISTANCE SC ×3 (08:17→17:20)
[2025-08-16] MEDS: MANNITOL 25% 12.5 GRAMS IV ×2 (08:34→10:48)
[2025-08-16] MEDS: RETACRIT 12000 UNITS IV (08:35)
[2025-08-16] MEDS: FLEXBUMIN 25% FOR HEMODIALYSIS 12.5 GRAMS IV ×2 (08:35→10:48)
[2025-08-16] MEDS: PROTONIX 40 MG PO (09:49)
[2025-08-16] MEDS: EMLA CREAM TOPICAL (09:49)
[2025-08-16] MEDS: WELLBUTRIN SR (12 hour sustained release) 150 MG PO (09:49)
[2025-08-16] MEDS: FLORINEF 0.1 MG PO (09:49)
[2025-08-16] MEDS: ZYRTEC 5 MG PO (09:54)
--- NOTE | 2025-08-16 10:37 | EDRN ---
This RN completing electronic documentation on TAR per primary RN. No direct care provided.
[2025-08-16] MEDS: FLEXBUMIN 25% FOR HEMODIALYSIS IV (10:48)
--- NOTE | 2025-08-16 10:49 | W.PN.CARDCBS ---
Addendum entered and electronically signed by Alirio Lovell MD 08/16/25 11:33:
I saw and examined the patient.
The White Sourer's note was reviewed and I agree with the note.
Comment:
GEN: No distress, awake, Ox3
HEENT: supple, anicteric, mmm
LUNGS: CTA, no wheezes/rales
CV: Reg, S1/S2, 1/6 syst LSB, + click
ABD: soft, BS+, NT/ND
EXT: No edema
NEURO: Gross non-focal
SKIN: No rash
Plan:
INR at 2.16. Will give 15 mg of Coumadin tonight for goal INR of 2.5-3.5.
Continue hemodialysis.
Hemoglobin at 7.7 and stable. No further bleeding.
Will need close monitoring of INR as outpatient.
Hopeful for discharge in a.m.
Original Note:
Today's Communication / Plan
-
Continue IV heparin until INR greater than 2.5
Give Coumadin 15 mg this evening
HD today
Impression / Plan
-
PCP: Dr. Flores at [facility]
Primary Training And Development Director: last seen in the office by Dr. Lovell in 2019
Assessment:
Admitted with bleeding fistula and GIB 08/06/2025
Previous admission for HD fistula bleeding 09/10/24 until 09/14/2024 s/p fistula revision 09/13/24
s/p left forearm AV fistula
Revision 09/13/2024
Revision 12/20/2024
Anemia, multifactorial
Permanent atrial fibrillation
Recovered NICM, EF was 25-30% by echo 05/26/22, then 50% by echo 09/13/24
Chronic HFrEF
s/p SJM Mechanical MVR 1997
Chronic Coumadin therapy
Severe tricuspid regurgitation
h/o ICD explant due to infection 2005
HTN
ESRD on HD MWF
h/o CVA, by review of CT head with an area of encephalomalacia involving the right anterolateral frontal lobe 07/2015
Obstructive sleep apnea
Former smoker
ECHO 06/2018: Global hypokinesis, most marked in anterior and septal segments, EF 35 to 40%, normal function of mechanical MVR with peak/mean gradients 19/7 mmHg, no MR, dilated left atrium, dilated right ventricle, moderate TR, moderate pulmonary
hypertension, PAP 52 to 57 mmHg, atrial septal aneurysm
Echo 05/26/22: EF 25-30%, mechanical mitral valve with peak/mean 13/5 mmHg and no MR, aortic valve is normal, dilated and hypokinetic RV with dilated RA and mod MR with PAP 50-55 mmHg
ECHO 09/13/24: EF 50%, mild concentric LVH, flattened septum in systole and diastole consistent with RV pressure and volume overload, well-seated mechanical mitral valve with mean gradient 6 mmHg, mild to moderate TR, PAP 75 to 80 mmHg
Echo 08/08/2025: EF 45 to 50%, hypokinetic RV, dilated right atrium, St Jefry mechanical MVR with peak/mean gradient 16/7 mmHg with mild MR, sev TR with PAP 79 mmHg. Echo similar to 09/2024
Plan:
-Patient admitted with GIB and bleeding AVF and cardiology was initially consulted for supratherapeutic INR in the setting of chronic warfarin therapy for mechanical MVR. Goal INR 2.5-3.5.
-Patient had upper endoscopy on 08/08/2025 that showed multiple gastric polyps and nonbleeding angiectasia in the duodenum. Patient had colonoscopy with polypectomy 08/12/2025.
-Heparin gtt restarted 08/12/2025 PM and patient was given warfarin 15 mg on 08/12, 08/13 and 08/14. 08/15. Patient has traditionally been bridged with heparin gtt when INR has been subtherapeutic due to previous mechanical MVR and CVA.
-INRs reviewed by me, INR is trending up to 2.1 on 08/16. Continue warfarin 15 mg
-INR should be greater than 2.5 before heparin gtt is stopped. Hopefully INR will be therapeutic within next 24 hours
- Hemoglobin relatively stable at 7.7 08/16
-A-fib is permanent. HR control has been limited by hypotension in past, but new to digoxin 62.5 mcg daily this admission. HR is now generally less than 100 which is an improvement
-Digoxin level 0.4 on labs 08/14/2025
-Patient reports he had cardiac arrest with amiodarone at [facility] in 2014, but cannot find any records of that or records that Amio is listed as an allergy/intolerance
-EF was 25% in 2021, then 50% by echo 09/13/2024 and relatively stable by echo 08/08/25, EF was 45 to 50%
-Patient was intolerant to Toprol-XL due to hypotension
-Patient is not a candidate for MALU/ARB/Aldactone/SGLT2 due to hemodialysis
-Volume status being managed with HD
-Outpatient dose of midodrine 10 mg every 6 hours plus Florinef 0.1 mg daily has been continued
- Continue volume removal through hemodialysis
Clinical summary: Patient came to the ER today with a bleeding fistula, dark blood in his stools and an elevated INR, cardiology is consulted due to the need for warfarin OAC in the setting of mechanical MVR. Patient is originally from [facility]
[place] and has a complicated past medical history spread out over the [facility]. He had a mechanical mitral valve while living in [place], [place] in 1997. He says this was for a history rheumatic heart disease as a child. Then sometime around 2008
he moved to [place], [place] with his and around that time he says he had a marked deterioration in his renal function and was started on hemodialysis in response to hypertensive nephropathy. He says that since then he had chronic
infections related to his hemodialysis port. During an admission to [facility] in 2014 he required a trach. With the addition of trach to his dialysis, he could only be transferred to [facility] (now [facility]). He has
been there ever since even though his trach was removed. Patient lives in a 4 bedroom unit at [facility] where he is a long-term resident and travels by [place] 3x a week for HD sessions. All of his family lives in [place], and his has since
him, he has not been visited by family in years. Afib is permanent and patient says he can hear his heart beat due to mechanical valve, but no palpitations. Patient thinks he had a cardiac arrest while admitted to [facility] years ago that was
related to amiodarone. He was on digoxin in 2014, but it was stopped for unclear reasons. Patient says he has chest pain, he has chronic chest pain. INR was 6.52 on admission this morning and he says INRs are checked every Tuesday with INR goal of
2.5 to 3.5. Vascular surgery evaluated patient and they graft is patent without obvious stenosis and bleeding thought to be from supratherapeutic INR and so no surgical intervention recommended. GI will see patient as well.
Progress Note - Training And Development Director
Subjective
Date of Service: August 16, 2025
Patient seen and examined. Patient resting comfortably/sleeping in bed currently on dialysis arousable when prompted. Offers no complaints.
Objective
Labs:
08/16/25 04:13
08/16/25 04:13
Labs
Hgb 7.7 g/dL (13.0-18.0) L 08/16/25 04:13
Hct 25.8 % (39.0-52.0) L 08/16/25 04:13
Plt Count 192 10^3/uL (130-400) 08/16/25 04:13
PT 24.6 Sec (11.4-14.6) H 08/16/25 04:13
INR 2.16 08/16/25 04:13
APTT 81.2 Sec (23.4-35.0) H 08/16/25 04:13
Sodium 138 mmol/L (135-145) 08/16/25 04:13
Potassium 4.5 mmol/L (3.5-5.1) 08/16/25 04:13
BUN 17 mg/dl (9-20) 08/16/25 04:13
Creatinine 6.3 mg/dL (0.7-1.3) H* 08/16/25 04:13
Glucose 83 mg/dl (70-99) 08/16/25 04:13
Digoxin Cancelled 08/13/25 20:15
Vital Signs and I&O:
Vital Signs
Temp Pulse Resp BP Pulse Ox
98.4 F 94 18 104/61 99
08/16/25 06:58 08/16/25 08:07 08/16/25 08:07 08/16/25 06:58 08/16/25 08:07
Vital Signs
Temp Pulse Resp BP Pulse Ox
98.4 F 94 18 104/61 99
08/16/25 06:58 08/16/25 08:07 08/16/25 08:07 08/16/25 06:58 08/16/25 08:07
Intake & Output
08/14/25 08/15/25 08/16/25 08/17/25
06:59 06:59 06:59 06:59
Intake Total 720 / 720 1050 / 1050 600 / 600
Balance 720 / 720 1050 / 1050 600 / 600
Physical Exam
Physical Exam
GEN: No distress, awake, Ox3, lying in bed on dialysis
HEENT: supple, anicteric, mmm
LUNGS: CTA, no rales or wheezes anteriorly wearing 3 L of oxygen via nasal cannula
CV: Irregularly irregular, tachycardic, S1/S2, 1/6 LSB murmur
ABD: soft, BS+, NT/ND
EXT: No edema, no clubbing or cyanosis
NEURO: Gross non-focal
SKIN: No rash
[2025-08-16 11:02] LABS: APTT 79.8 Sec (23.4-35.0)
--- NOTE | 2025-08-16 11:13 | CM ---
Rounds with Dr. Zuñiga today - discharge/return to [facility] anticipated for 08/17/2025.
Ambulance transport forms on chart.
[facility] Report: [phone]
[facility]
--- NOTE | 2025-08-16 12:18 | W.PN.NEPH.HD ---
Assessment
-
Seen on HD. no new issues. VSS, access ok
Progress Note - Hemodialysis
-
Date of Service: August 16, 2025
Duration: 45 minutes and 3 hours
Potassium Bath: 3
Calcium Bath: 2.5
Opti-Dialyzer: 160
Ultrafiltration: Other (2kg)
Blood Flow: 400
Dialysate Flow: 600
Heparin: 0
EPO: 87312 units
[2025-08-16 12:41] LABS: Glucose - Point of Care 86 mg/dl (70-99)
[2025-08-16] MEDS: LAMICTAL 200 MG PO ×2 (13:18→21:55)
[2025-08-16] MEDS: LANOXIN 62.5 MCG PO (13:28)
--- NOTE | 2025-08-16 14:22 | W.PN.HOSP.TC ---
Today's Communication/Plan
-
Coumadin today
Trend INR
Anticipate discharge tomorrow
Assessment / Plan
Assessment / Plan
49-year-old with complex past medical history including end-stage renal disease on hemodialysis via left upper extremity AV fistula, chronic hypoxic respiratory failure on home O2, obstructive sleep apnea, congestive heart failure, chronic anemia,
atrial fibrillation, mechanical mitral valve replacement on anticoagulation with warfarin who presents to the emergency department with complaints of bleeding from fistula site after hemodialysis in the setting of supratherapeutic INR to 7.6 on
Tuesday, also reports approximately 3 days of bloody bowel movements. He was found to be hypotensive, in rapid afib with RVR.
EGD 08/08/25
Impression:
- Normal esophagus. no esophageal varices seen
- Multiple gastric polyps. Biopsied. Clip was placed to stop
oozing at biopsy site. 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
- Portal hypertensive gastropathy. no gastric varices seen.
- One non-bleeding angioectasia in the duodenum.
Recommendation:
- Continue present medications.
- restart Heparin in 6 hours
- colonoscopy Tuesday with 2 day prep over the weekend and if
negative needs capsule endoscopy
Hematochezia in setting of supratherapeutic INR
-s/p 5mg PO vitamin K in the ER with reversal of Coumadin
-s/p EGD morning 08/08 without finding of varices, multiple gastric polyps, one non-bleeding angioectasis in duodenum
- Colonoscopy 08/12 with no obvious rectal bleeding, polyps removed.
� GI outpatient follow-up for pathology
� Repeat colonoscopy in 3 years
� Recommend capsule endoscopy outpatient
-continue PPI oral
Acute Blood Loss Anemia
-s/p 2 units PRBC total
-Hg stable
Mechanical Mitral Valve
-goal INR 2.5-3
-Cardiology consulted to help guide bridging therapy
-continue IV Heparin gtt for bridging; Can start Coumadin back 10/6 as per GI- Coumadin dosing as per cards
-INR should be greater than 2 before heparin gtt is stopped and patient is discharged
Warfarin 15 mg tonight and recheck INR in a.m.
Bleeding AV fistula - Hemostasis achieved
- vascular consulted, fistula u/s study with patent graft; small nonocclusive thrombus without significant stenosis
- no need for intervention unless bleeds again in setting of therapeutic INR
Atrial fibrillation with RVR- permanent afib on coumadin.
-IV heparin gtt as above
-digoxin started per Cardiology
End-stage renal disease
-appreciate renal consult
-HD MWF
Chronic Hypoxia - JOVITA, CHF (no acute exacerbation)
- stable on 3 L O2. No CPAP.
Chronic orthostatic hypotension
- continue midodrine/fludrocortisone
Sz d/o
- lamictal continued
Hypothyroid
- on levothyroxine
Diabetes
-ISS low
DVT PPX - SCD
Code status - Full code
Anticipated Discharge: Within 24 hours
Subjective/Interval History
-
Date of Service: August 16, 2025
No acute events overnight. INR over 2
Objective Data
-
Labs:
Laboratory Results
08/16/25 08/16/25
04:13 10:27
WBC 7.4
Hgb 7.7 L
Hct 25.8 L
Plt Count 192
PT 24.6 H
INR 2.16
APTT 81.2 H 79.8 H
Sodium 138
Potassium 4.5
Chloride 101
Carbon Dioxide 31 H
BUN 17
Creatinine 6.3 H*
Glucose 83
Calcium 8.4
Total Bilirubin 0.8
AST 28
ALT 31
Alkaline Phosphatase 106
Vital Signs:
Vital Signs
Temp Pulse Resp BP Pulse Ox
98.4 F 96 18 124/82 99
08/16/25 06:58 08/16/25 13:29 08/16/25 08:07 08/16/25 13:29 08/16/25 13:00
I&O
08/15/25 08/16/25 08/17/25
06:59 06:59 06:59
Intake Total 1050 / 1050 600 / 600
Balance 1050 / 1050 600 / 600
Review of Systems
-
History Source: Patient
All other systems: Not reviewed unless documented
Data Reviewed
-
Diagnostic Radiology: Report Reviewed by me
Labs: Labs Reviewed by me
[2025-08-16 14:58] VITALS: BP 112/63
[2025-08-16 16:44] LABS: Glucose - Point of Care 115 mg/dl (70-99)
[2025-08-16] MEDS: COUMADIN 15 MG PO (17:21)
--- NOTE | 2025-08-16 21:50 | PTCARENOTE ---
Patient is refusing to have blood sugar checked for HS -- states 'my fingers are bothering me, they hurt.' Offered to come back to patient in an hour to check, patient refusing all further AccuChecks this evening. Will continue to monitor.
[2025-08-16] MEDS: NEURONTIN 300 MG PO (21:55)
[2025-08-16] MEDS: SENOKOT 17.2 MG PO (21:55)
[2025-08-16 23:00] VITALS: BP 120/66
[2025-08-17] MEDS: DESYREL 150 MG PO (00:15)
[2025-08-17] MEDS: ULTRAM 25 MG PO (00:15)
[2025-08-17 06:00] VITALS: BMI 31.4
[2025-08-17] MEDS: SYNTHROID 112 MCG PO (06:30)
[2025-08-17] MEDS: SYNTHROID 100 MCG PO (06:30)
[2025-08-17] MEDS: FLORINEF 0.1 MG PO (07:47)
[2025-08-17] MEDS: PROTONIX 40 MG PO (07:47)
[2025-08-17] MEDS: LAMICTAL 200 MG PO (07:47)
[2025-08-17] MEDS: HEPARIN 25000 UNITS/250 ML IV (07:47)
[2025-08-17] MEDS: FLOVENT 110 MCG INHALER 2 PUFF INH (07:53)
[2025-08-17 08:44] LABS: Glucose - Point of Care 98 mg/dl (70-99)
[2025-08-17 08:46] LABS: Hematocrit 24.9 % (39.0-52.0); Hemoglobin 7.6 g/dL (13.0-18.0); Mean Corp Hgb Conc. 30.5 g/dL (33.0-37.0); Mean Corpuscular Volume 93.6 fL (80.0-94.0); Platelet Count 192 10^3/uL (130-400); Red Cell Dist. Width 17.3 % (11.5-14.5)
[2025-08-17 08:54] LABS: INR 2.78; PT 29.3 Sec (11.4-14.6)
[2025-08-17 08:55] LABS: APTT 67.5 Sec (23.4-35.0)
[2025-08-17 09:12] LABS: ALT (SGPT) 24 U/L (0-50); AST (SGOT) 22 U/L (17-59); Albumin 3.8 g/dl (3.5-5.0); Alkaline Phosphatase 108 U/L (38-126); Blood Urea Nitrogen 14 mg/dl (9-20); Calcium 8.5 mg/dl (8.4-10.2); Carbon Dioxide 33 mmol/L (22-30); Chloride 98 mmol/L (98-107); Estimated Creatinine Clearance 23 ml/min; Glucose 92 mg/dl (70-99); Potassium 4.0 mmol/L (3.5-5.1); Sodium 137 mmol/L (135-145); Total Protein 6.8 g/dl (6.3-8.2); eGFR 14.23
[2025-08-17 09:24] VITALS: BP 102/66
[2025-08-17] MEDS: NOVOLOG FLEXPEN-LOW RESISTANCE SC ×2 (10:51→12:32)
--- NOTE | 2025-08-17 11:25 | W.PN.NEPH.PH ---
Today's Communication / Plan
-
HD tuesday
Assessment/Plan
-
Impression:
End-stage renal disease.
AV graft bleed
GI bleed
Anemia.
Chronic hypotension on midodrine support
Hyperphosphatemia.
mechanical aortic valve on chronic anticoagulation
AFib.
Plan:
HD tuesday
solomon maurice continues for bp support on HD
echo noted EF 45-50%, severe TR with severe pulm HTN
fluid restriction and dietary restrictions directed for ESRD
await INR to be therapeutic
-
-
Date of Service: August 17, 2025
CC / HPI / ROS
-
Chief Complaint:
ESRD
History of Present Illness:
ESRD Tuesday
Chronically hemodynamically labile on midodrine support
Hemoglobin low
tolerated HD tuesday
on heparing gtt
Review of Systems:
No chest pain or sob
has cough
Chronic O2 requirement
Labs
-
Labs:
WBC 7.4 10^3/uL (4.8-10.8) 08/17/25 08:18
RBC 2.66 10^6/uL (4.70-6.10) L 08/17/25 08:18
Hgb 7.6 g/dL (13.0-18.0) L 08/17/25 08:18
Hct 24.9 % (39.0-52.0) L 08/17/25 08:18
Plt Count 192 10^3/uL (130-400) 08/17/25 08:18
Sodium 137 mmol/L (135-145) 08/17/25 08:18
Potassium 4.0 mmol/L (3.5-5.1) 08/17/25 08:18
Chloride 98 mmol/L (98-107) 08/17/25 08:18
Carbon Dioxide 33 mmol/L (22-30) H 08/17/25 08:18
BUN 14 mg/dl (9-20) 08/17/25 08:18
Creatinine 4.7 mg/dL (0.7-1.3) H* 08/17/25 08:18
eGFR 14.23 08/17/25 08:18
Glucose 92 mg/dl (70-99) 08/17/25 08:18
Calcium 8.5 mg/dl (8.4-10.2) 08/17/25 08:18
Phosphorus 4.1 mg/dl (2.5-4.5) 08/12/25 04:20
Npy-D-Zknkntmfres Pept Cancelled 08/08/25 09:32
Albumin 3.8 g/dl (3.5-5.0) 08/17/25 08:18
Physical Exam
-
Vital Signs:
Vital Signs
Temp Pulse Resp BP Pulse Ox
98.2 F 92 20 102/66 99
08/17/25 09:24 08/17/25 09:24 08/17/25 09:24 08/17/25 09:24 08/17/25 09:24
Cardiovascular:: Regular rate and rhythm
Respiratory:: Bilateral: Coarse
Lung Excursion:: Normal
Abdomen:: Nontender and Soft
Bowel Sounds:: Normal
Extremity Edema:: None: Bilateral:
[2025-08-17 12:23] LABS: Glucose - Point of Care 148 mg/dl (70-99)
[2025-08-17] MEDS: LANOXIN 62.5 MCG PO (12:47)
--- NOTE | 2025-08-17 14:14 | W.PN.HOSP.TC ---
Addendum entered and electronically signed by Willie Zuñiga MD 08/17/25 16:29:
[id number]
Addendum entered and electronically signed by Willie Zuñiga MD 08/17/25 14:19:
Cough, sore throat - most likely viral; no exudates noted; F/u COVID, Flu. Supportive care. CXR with interstitial edema, f/u on Tuesday for HD
Original Note:
Today's Communication/Plan
-
Coumadin 15mg qhs
INR f/u Sunday 08/19
F/u CBC, CMP outpt
F/u Cards, PCP, GI outpt, HD outpatient
Assessment / Plan
Assessment / Plan
49-year-old with complex past medical history including end-stage renal disease on hemodialysis via left upper extremity AV fistula, chronic hypoxic respiratory failure on home O2, obstructive sleep apnea, congestive heart failure, chronic anemia,
atrial fibrillation, mechanical mitral valve replacement on anticoagulation with warfarin who presents to the emergency department with complaints of bleeding from fistula site after hemodialysis in the setting of supratherapeutic INR to 7.6 on
Tuesday, also reports approximately 3 days of bloody bowel movements. He was found to be hypotensive, in rapid afib with RVR.
EGD 08/08/25
Impression:
- Normal esophagus. no esophageal varices seen
- Multiple gastric polyps. Biopsied. Clip was placed to stop
oozing at biopsy site. 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
- Portal hypertensive gastropathy. no gastric varices seen.
- One non-bleeding angioectasia in the duodenum.
Recommendation:
- Continue present medications.
- restart Heparin in 6 hours
- colonoscopy Tuesday with 2 day prep over the weekend and if
negative needs capsule endoscopy
Hematochezia in setting of supratherapeutic INR
-s/p 5mg PO vitamin K in the ER with reversal of Coumadin
-s/p EGD morning 10/2 without finding of varices, multiple gastric polyps, one non-bleeding angioectasis in duodenum
- Colonoscopy 08/12 with no obvious rectal bleeding, polyps removed.
� GI outpatient follow-up for pathology
� Repeat colonoscopy in 3 years
� Recommend capsule endoscopy outpatient
-continue PPI oral
Acute Blood Loss Anemia
-s/p 2 units PRBC total
-Hg stable
-monitor hgb f/u
Mechanical Mitral Valve
-goal INR 2.5-3
-Cardiology consulted to help guide bridging therapy
-continue IV Heparin gtt for bridging; Can start Coumadin back 08/12 as per GI- Coumadin dosing as per cards
-INR should be greater than 2 before heparin gtt is stopped and patient is discharged
-INR stable
-INR goal 2.5-3.5
-Coumadin 15mg qhs - f/u outpatient INR on Sunday 08/19
Bleeding AV fistula - Hemostasis achieved
- vascular consulted, fistula u/s study with patent graft; small nonocclusive thrombus without significant stenosis
- no need for intervention unless bleeds again in setting of therapeutic INR
Atrial fibrillation with RVR- permanent afib on coumadin.
-IV heparin gtt as above
-digoxin started per Cardiology
End-stage renal disease
-appreciate renal consult
-HD MWF
Chronic Hypoxia - JOVITA, CHF (no acute exacerbation)
- stable on 3 L O2. No CPAP.
Chronic orthostatic hypotension
- continue midodrine/fludrocortisone
Sz d/o
- lamictal continued
Hypothyroid
- on levothyroxine
Diabetes
-ISS low
DVT PPX - SCD
Code status - Full code
More than 30 minutes spent in discharge including
Final examination of the patient
Summarizing hospital stay
Instructions for continuing care to all relevant caregivers
Preparation of discharge records, prescriptions, and referral forms
Total time spent (in minutes): 36
Anticipated Discharge: Today
Subjective/Interval History
-
Date of Service: August 17, 2025
sore throat, mild cough; no exudates, erythema
Objective Data
-
Labs:
Laboratory Results
08/17/25 08/17/25
08:18 16:45
WBC 7.4
Hgb 7.6 L
Hct 24.9 L
Plt Count 192
PT 29.3 H
INR 2.78
APTT 67.5 H Pending
Sodium 137
Potassium 4.0
Chloride 98
Carbon Dioxide 33 H
BUN 14
Creatinine 4.7 H*
Glucose 92
Calcium 8.5
Total Bilirubin 0.9
AST 22
ALT 24
Alkaline Phosphatase 108
Vital Signs:
Vital Signs
Temp Pulse Resp BP Pulse Ox
98.2 F 95 20 100/63 99
08/17/25 09:24 08/17/25 12:47 08/17/25 09:24 08/17/25 12:47 08/17/25 09:24
I&O
08/16/25 08/17/25 08/18/25
06:59 06:59 06:59
Intake Total 600 / 600 1200 / 1200
Balance 600 / 600 1200 / 1200
Review of Systems
-
History Source: Patient
All other systems: Not reviewed unless documented
Data Reviewed
-
Diagnostic Radiology: Report Reviewed by me
Labs: Labs Reviewed by me
--- NOTE | 2025-08-17 14:18 | W.DS.TRANS ---
DC Summary - Hand Button Splitter
-
Discharge Instructions:
Sleep Apnea Risk Intermediate
Discharge Diagnosis/Procedures Hematochezia in setting of supratherapeutic INR
Acute Blood Loss Anemia
Mechanical Mitral Valve
Diet Restrict fluids to 48 oz,Low Cholesterol,Low Fat
Activity As tolerated
Blood Work INR on Sunday 08/19 with Cardiology
F/u CBC and CMP in 3-5 days
HD as scheduled on tuesday
Instructions:
Stand-Alone Forms:
Changes to Home Medications: Yes
Discharge Medications:
DC Medications w/original date entered in [facility]
gabapentin 300 mg capsule 300 mg PO HS Pain 03/11/15
polyethylene glycol 3350 17 gram oral powder packet 17 grams PO SUTUTHSA constipation 02/23/17
atorvastatin 20 mg tablet 20 mg PO HS High cholesterol 10/04/18
sevelamer carbonate 800 mg tablet 800 mg PO MEALS Kidney Disease 10/04/18
pantoprazole 40 mg tablet,delayed release 40 mg PO DAILY Gastrointestinal issue 01/17/20
acetaminophen 325 mg tablet 650 mg PO Q4HPRN PRN mild pain/temp>100F 10/14/23
budesonide 0.25 mg/2 mL suspension for nebulization 0.25 mg inhalation R [id number] PRN SOB/wheezing 10/14/23
midodrine 10 mg tablet 10 mg PO Q6H Hold SBP >/= 150 10/14/23
sennosides 8.6 mg tablet (senna) 8.6 mg PO HS Constipation 10/14/23
albuterol sulfate 90 mcg/actuation aerosol inhaler 2 puff inhalation R Q4HPRN PRN asthma 09/07/24
bupropion HCl 150 mg tablet,12 hr sustained-release (Wellbutrin SR) 150 mg PO MOWEFR depression/anxiety 09/10/24
fludrocortisone 0.1 mg tablet 0.1 mg PO DAILY Blood pressure #30 tabs 09/14/24
bisacodyl 10 mg rectal suppository (Dulcolax (bisacodyl)) 10 mg ID DAILYPRN PRN constipation 12/14/24
diphenhydramine HCl 25 mg tablet (Benadryl Allergy) 25 mg PO Q6HPRN PRN allergies 12/14/24
fluticasone furoate 200 mcg/actuation blister powder for inhalation 1 inh inhalation R DAILY Lung/Breathing Issues 05/15/25
lamotrigine 200 mg tablet (Lamictal) 200 mg PO BID Neurological Condition 05/15/25
levothyroxine 175 mcg/mL oral solution (Tirosint-Nessa) 210 mcg PO DAILY Thyroid 05/15/25
lidocaine-prilocaine 2.5 %-2.5 % topical cream 1 applic topical MOWEFR apply to L arm fistula 05/15/25
vitamin B complex and vitamin C no.20-folic acid 1 mg capsule (Renal Caps) 1 cap PO HS Supplement 05/15/25
benzocaine 6 mg-menthol 10 mg lozenges (Chloraseptic Sore Throat) 1 ivonne PO Q4HPRN PRN sore throat #30 ea 08/17/25
cetirizine 10 mg tablet 5 mg (1/2 x 10 mg) PO MoWeFr 30 days #7 tabs 08/17/25
digoxin 125 mcg (0.125 mg) tablet 62.5 mcg (1/2 x 125 mcg (0.125 mg)) PO NOON 30 days #15 tabs 08/17/25
tramadol 50 mg tablet 25 mg (1/2 x 50 mg) PO [id number] PRN moderate pain #0 tabs 08/17/25
trazodone 100 mg tablet 150 mg (1.5 x 100 mg) PO HS@0000 depression/sleep #0 tabs 08/17/25
warfarin 7.5 mg tablet (Jantoven) 15 mg (2 x 7.5 mg) PO QPM 30 days #60 tabs 08/17/25
Home Medication Changes
cetirizine 10 mg tablet 5 mg (1/2 x 10 mg) PO MoWeFr 30 days #7 tabs 08/17/25
digoxin 125 mcg (0.125 mg) tablet 62.5 mcg (1/2 x 125 mcg (0.125 mg)) PO NOON 30 days #15 tabs 08/17/25
tramadol 50 mg tablet 25 mg (1/2 x 50 mg) PO [id number] PRN moderate pain #0 tabs 08/17/25
trazodone 100 mg tablet 150 mg (1.5 x 100 mg) PO HS@0000 depression/sleep #0 tabs 08/17/25
warfarin 7.5 mg tablet (Jantoven) 15 mg (2 x 7.5 mg) PO QPM 30 days #60 tabs 08/17/25
Pending Results: No
--- NOTE | 2025-08-17 14:18 | CM ---
Addendum entered by Misa Tanner 08/17/25 14:33:
4PM transport set - updated Gwendolyn/Fatoumata at [facility]
Original Note:
Patient seen at bedside
discharge today
spoke with Gwendolyn at [facility]
LM with nsg slot supervisor Fatoumata, LM with Myra liaison
IMM explained & signed. In chart
PLAN: Return to [facility] LT
[facility]
Report #: [phone]
Fax #: [phone]
[facility] fax #: [phone]
[2025-08-17 14:21] LABS: COVID-19 Antigen Negative (Negative)
[2025-08-17 16:54] VITALS: BP 95/66
== END 2025-08-17 16:50 | DRG 377 ==
LOC: 3 WEST ACU 08:04
PROVIDERS: Internal Medicine; Internal Medicine Gastroenterology; Nurse Practitioner Gerontology; Physician Assistant Medical; Specialist; Student in an Organized Health Care Education/Training Program; ADMITTING PHYSICIAN Internal Medicine; ATTENDING PHYSICIAN Internal Medicine; CONSULT PHYSICIAN Internal Medicine Cardiovascular Disease; EMERGENCY PHYSICIAN Emergency Medicine; FAMILY PHYSICIAN Internal Medicine; OTHER PHYSICIAN Internal Medicine Gastroenterology; OTHER PHYSICIAN Specialist; OTHER PHYSICIAN Surgery Vascular Surgery
PROC: 30233N1 Transfusion of Nonautologous Red Blood Cells into Peripheral Vein, Percutaneous Approach (ICD-10-PCS; 2025-08-06)
PROC: 5A1D70Z Performance of Urinary Filtration, Intermittent, Less than 6 Hours Per Day (ICD-10-PCS; 2025-08-07)
PROC: 0DB68ZX Excision of Stomach, Via Natural or Artificial Opening Endoscopic, Diagnostic (ICD-10-PCS; 2025-08-08)
PROC: 0DBK8ZZ Excision of Ascending Colon, Via Natural or Artificial Opening Endoscopic (ICD-10-PCS; 2025-08-12)
PROC: 0DBL8ZZ Excision of Transverse Colon, Via Natural or Artificial Opening Endoscopic (ICD-10-PCS; 2025-08-12)
DX: K31.811 Angiodysplasia of stomach and duodenum with bleeding (principal); N18.6 End stage renal disease; T82.838A Hemorrhage due to vascular prosthetic devices, implants and grafts, initial encounter; I13.2 Hypertensive heart and chronic kidney disease with heart failure and with stage 5 chronic kidney disease, or end stage renal disease; I50.22 Chronic systolic (congestive) heart failure; I48.21 Permanent atrial fibrillation; D62 Acute posthemorrhagic anemia; D68.32 Hemorrhagic disorder due to extrinsic circulating anticoagulants; J96.11 Chronic respiratory failure with hypoxia; K76.6 Portal hypertension; Y84.1 Kidney dialysis as the cause of abnormal reaction of the patient, or of later complication, without mention of misadventure at the time of the procedure; E11.22 Type 2 diabetes mellitus with diabetic chronic kidney disease; G47.33 Obstructive sleep apnea (adult) (pediatric); I95.1 Orthostatic hypotension; J06.9 Acute upper respiratory infection, unspecified; E66.01 Morbid (severe) obesity due to excess calories; T45.515A Adverse effect of anticoagulants, initial encounter; K31.7 Polyp of stomach and duodenum; I07.1 Rheumatic tricuspid insufficiency; F32.A Depression, unspecified; D12.2 Benign neoplasm of ascending colon; D12.3 Benign neoplasm of transverse colon; K64.8 Other hemorrhoids; K31.89 Other diseases of stomach and duodenum; J98.4 Other disorders of lung; E78.00 Pure hypercholesterolemia, unspecified; E03.9 Hypothyroidism, unspecified; K21.9 Gastro-esophageal reflux disease without esophagitis; J44.89 Other specified chronic obstructive pulmonary disease; K63.89 Other specified diseases of intestine; G40.909 Epilepsy, unspecified, not intractable, without status epilepticus; E83.39 Other disorders of phosphorus metabolism; I25.10 Atherosclerotic heart disease of native coronary artery without angina pectoris; K74.60 Unspecified cirrhosis of liver; I27.20 Pulmonary hypertension, unspecified; Z11.52 Encounter for screening for COVID-19; Z99.81 Dependence on supplemental oxygen; Z99.2 Dependence on renal dialysis; Z95.2 Presence of prosthetic heart valve; Z86.73 Personal history of transient ischemic attack (TIA), and cerebral infarction without residual deficits; Z87.891 Personal history of nicotine dependence; Z79.01 Long term (current) use of anticoagulants; Z68.31 Body mass index [BMI] 31.0-31.9, adult
CPT/HCPCS: 36430; 71046; 74018; 74176; 80048; 80053; 80069; 80162; 82607; 82728; 82746; 82962; 83540; 83550; 83735; 83880; 85014; 85018; 85025; 85027; 85610; 85730; 86706; 86850; 86900; 86901; 86920; 87340; 87811; 88305; 93005; 93306; 93990; 94640; 96374; 97163; 97530; 99291; G0257; J1160; P9016; P9047; Q5106; Q9950

== ENCOUNTER 2025-10-09 01:31 | Inpatient (IN) | payer MEDICARE, OTHER, SELFPAY ==
[2025-10-08 19:04] VITALS: BP 98/64
[2025-10-08 19:11] VITALS: BMI 31.1
[2025-10-08 20:41] LABS: Hematocrit 17.0 % (39.0-52.0); Hemoglobin 5.4 g/dL (13.0-18.0); Mean Corp Hgb Conc. 31.8 g/dL (33.0-37.0); Mean Corpuscular Volume 96.0 fL (80.0-94.0); Nucleated Red Blood Cells % 1.6 % (-); Platelet Count 311 10^3/uL (130-400); Red Cell Dist. Width 20.7 % (11.5-14.5)
[2025-10-08 20:54] LABS: ALT (SGPT) 29 U/L (0-50); AST (SGOT) 33 U/L (17-59); Albumin 4.1 g/dl (3.5-5.0); Alkaline Phosphatase 122 U/L (38-126); Blood Urea Nitrogen 46 mg/dl (9-20); Calcium 8.1 mg/dl (8.4-10.2); Carbon Dioxide 27 mmol/L (22-30); Chloride 90 mmol/L (98-107); Estimated Creatinine Clearance 15 ml/min; Glucose 105 mg/dl (70-99); Potassium 3.4 mmol/L (3.5-5.1); Sodium 130 mmol/L (135-145); Total Protein 7.2 g/dl (6.3-8.2); eGFR 8.77
[2025-10-08 21:20] VITALS: BP 104/64
[2025-10-08 22:00] VITALS: BP 101/58
--- NOTE | 2025-10-08 22:33 | ED.GENMED ---
History of Present Illness
General
Chief Complaint: Weakness
Source: patient
Exam Limitations: none
Time Seen by Provider: 10/08/25 21:29
Nursing documentation reviewed up to this point in time: agreed with
History of Present Illness
History of Present Illness:
Patient is a pleasant 50-year-old man with a past medical history of end-stage renal disease on dialysis who reports that he has gradually gotten more fatigued and short of breath over the last 5 to 6 days. Patient denies nausea and vomiting. He
denies fevers and chills. He reports a dry cough. Additionally, he has noticed black stool. Patient denies chest pain. He denies abdominal pain. Patient was recently admitted for GI bleed. Patient reports he takes Coumadin each day for years.
Past History
Past History
ED Past Medical History: Arrthythmia (Atrial fibrillation), Asthma, HTN, Hypercholesterolemia, NIDDM, GA, Renal failure (End stage.), Valvular disease, Hypothyroidism and Other (Acute and chronic respiratory failure, sepsis, endocarditis, mitral
valve, depressive episodes, anemia, morbid obesity, pulmonary hypertension, Pulmonary edema, Colitis, GI bleeding. Dialysis, Ulcers)
ED Past Surgical History: Cardiac (Heart valve prosthesis) and Other
Social History
Tobacco: Former smoker
Alcohol: Occasional
Drug: None
Personal:
Living: [facility]-way ( [facility])
Employment: Not employed
Family History
Family History: Hypertension
Review of Systems
Review of Systems
Allergies reviewed?: Yes
All Other Systems: ROS reviewed and negative except as documented in HPI and ROS
Constitutional: Reports fatigue
EENT: Reports no symptoms
Respiratory: Reports trouble breathing
Cardiac: Reports no symptoms
ABD/GI: Reports black stools
: Reports no symptoms
Musculoskeletal: Reports no symptoms
Skin: Reports no symptoms
Neurological: Reports no symptoms
Endocrine: Reports no symptoms
Hematologic/Lymphatic: Reports no symptoms
Psychiatric: Reports no symptoms
Phy Exam
Physical Exam
Physical Exam:
Physical Exam
General: no apparent distress
Neck: supple. no meningeal signs. normal psoterior pharynx
Heart: Tachycardic
Lungs: Decreased breath sounds bilaterally. Mild tachypnea at rest
Abdomen: normal bowel sounds. not tender. no CVAT
Neuro: alert and oriented. no focal neurological deficits
Skin: no rash
Psychiatric: well kept. interactive and cooperative
Extremities: no edema. no calf tenderness. negative homans. good distal pulses
Course
Orders/Labs/Results
Orders:
Orders
10/08/25 19:18
Electrocardiogram (*1) Urgent
Reason for Study: Hypertension, Benign
10/08/25 19:19
EKG- Treatment ONCE
10/08/25 20:25
Complete Blood Count/With Diff Urgent
Comprehensive Metabolic Panel Urgent
10/08/25 20:48
Type+Screen Urgent
10/08/25 22:25
Pantoprazole 80 mg/100 ml Nss [Protonix] 80 mg in 100 ml IV NOW
Pantoprazole [Protonix IV] 80 mg IV NOW STA
10/08/25 22:26
* Blood Bank Products Routine
's Orders: oly
Blood Bank Products: *Packed RBC Leuko (PRBC's
Quantity: 1
Transfuse Today: Yes
Is product needed for scheduled surgery?: No
Reason: Anemia
IV Insert/Care/Rem.- Treatment PRN
10/08/25 22:31
Sterile Water [Sterile Water For Injection] 20 ml .ROUTE .STK-MED ONE
10/08/25 22:40
PTT Urgent
Prothrombin Time Urgent
10/09/25 00:05
CR Chest - 2 Views Urgent
Reason For Exam: cough
10/09/25 01:21
Admit/Transfer Patient As Directed
Co-Sign Provider:
Level of Care: Inpatient admission
Assign to:: Telemetry
Physician / Group: Patrick
Diagnosis: GI Bleed, Acute Blood Loss Anemia
Reason for Telemetry: Arrhythmia
Date to Stop Telemetry: 10/12/25
Time to Stop Telemetry: 11:00
Reason for Hospitalization: GI Bleed, Acute Blood Loss Anemia
Expected length of stay greater than two midnights?: Yes
ELOS- Estimated Length of Stay in days: 3
I certify the patient meets the requirements for IP care: Yes
PRN Pain Medication Management As Directed
May give lesser potent ordered pain med per pt: Yes
preference::
Protocol:: Medication orders for pain may be administered in a
manner that supports deferring to patient preference
when the pt is:
- Requesting an ordered lesser potent pain medication.
Least to most potent pain medications are defined
as: acetaminophen < NSAID < tramadol < opioids
(morphine, oxycodone, hydromorphone).
- Requesting a lesser dose of the same medication IF
ORDERED.
- Requesting a less intrusive route of administration
if both routes are prescribed by the provider (PO <
IV).
10/09/25 01:23
Code Status As Directed
Resuscitation Status: Full Code
10/12/25 11:00
DC Protocol for Telemetry ONCE
Abnormal Lab Results
10/08/25 10/08/25 10/08/25
20:25 20:48 22:40
WBC 15.3 H 10^3/uL
(4.8-10.8)
RBC 1.77 L 10^6/uL
(4.70-6.10)
Hgb 5.4 L* g/dL
(13.0-18.0)
Hct 17.0 L* %
(39.0-52.0)
MCV 96.0 H fL
(80.0-94.0)
MCHC 31.8 L g/dL
(33.0-37.0)
RDW 20.7 H %
(11.5-14.5)
Abs Immat Gran (auto) 0.3 H 10^3/uL
(0-0.05)
Absolute Neuts (auto) 13.1 H 10^3/uL
(1.4-6.5)
Absolute Lymphs (auto) 0.8 L 10^3/uL
(1.2-3.4)
Absolute Monos (auto) 0.9 H 10^3/uL
(0.1-0.6)
Immature Gran % 1.8 H %
(0-0.5)
Neutrophils % 85.6 H %
(42.2-75.2)
Lymphocytes % 5.3 L %
(20.5-51.1)
PT 31.0 H Sec
(11.4-14.6)
APTT 45.2 H Sec
(23.4-35.0)
Sodium 130 L mmol/L
(135-145)
Potassium 3.4 L mmol/L
(3.5-5.1)
Chloride 90 L mmol/L
(98-107)
BUN 46 H mg/dl
(9-20)
Creatinine 7.0 H* mg/dL
(0.7-1.3)
Glucose 105 H mg/dl
(70-99)
Calcium 8.1 L mg/dl
(8.4-10.2)
Crossmatch IS Only See Detail
10/08/25 20:25
10/08/25 20:25
Vital Signs
Initial and Last Documented VS:
Initial Vital Signs
Temp Pulse Resp BP Pulse Ox
97.9 F 95 16 98/64 96
10/08/25 19:04 10/08/25 19:04 10/08/25 19:04 10/08/25 19:04 10/08/25 19:04
Last Documented Vital Signs
Temp Pulse Resp BP Pulse Ox
98 F 108 17 97/59 99
10/08/25 23:36 10/09/25 01:30 10/09/25 01:30 10/09/25 01:04 10/09/25 01:30
MDM/Problems Addressed
Differential Diagnosis Includes:
Acute upper GI bleed, acute lower GI bleed, pneumonia
MDM/Problems Addressed:
Patient presents with acute generalized weakness and shortness of breath
Chronic conditions affecting care:
COPD
Acute Exacerbation and/or Progression of Chronic Illness:
Patient may have acute exacerbation of COPD, however, he has no wheezing
*Pulse Oximetry
SaO2: 96
Nasal Cannula flow liters per minute: 4
Patient hypoxic: no
*EKG
Interpreted by ED Provider?: Yes
Interpretation: abnormal
Comparison EKG: no changes
Rate: tachycardiac
Rhythm: a-fib
[place]: right axis deviation
Interval: normal interval
QRS Pattern: normal QRS
Ischemia: non-specific ST changes
*Hematology Nurse Interpretation
Rate: tachycardiac
Interpretation: abnormal
Rhythm: a-fib
*Critical Care Note
Total Time (30-74mins, 75-104mins- exclusive of procedures): Not Applicable
Data Reviewed
Review of Other/Old Records Reveals: Labs (Hemoglobin 7.6 on 08/17/2025)
Source: patient
ED Attending Note
-
Portions of this chart may have been created with voice recognition software.� Occasional wrong word or��sound alike� substitutions may have occurred due to the inherent limitations of voice recognition software.
Discharge Plan
Departure
Patient Disposition: Admit
Date of Disposition: 10/08/25
Time of Disposition: 22:26
Admit to: Telemetry
Presentation/result/management discussed w/ accepting MD/DO: Hospitalist
Patient with high blood pressure during this ER visit?: No
Condition: Good
Covid-19: Not Applicable
Discharge Problem:
Signs and symptoms of anemia, Acute upper gastrointestinal bleeding
Interventions
Interventions:
*Risk Screen - Suicide Last Done: 10/08/25 19:04
*General Assessment Last Done: 10/08/25 19:04
*Neglect/Abuse Screening Last Done: 10/08/25 19:04
*ED COVID-19 Vaccine History Last Done: 10/08/25 19:04
*ED Influenza Vaccine History Last Done: 10/08/25 19:[address]
[facility] Fall Risk Assessment Tool Last Done: 10/08/25 19:12
ED- Cardiac Assessment Last Done: 10/08/25 19:08
ED- Neurological Assessment Last Done: 10/08/25 19:08
ED- Pulmonary Assessment Last Done: 10/08/25 19:08
[2025-10-08] MEDS: PROTONIX IV 80 MG IV (22:41)
[2025-10-08 23:13] LABS: APTT 45.2 Sec (23.4-35.0); INR 2.96; PT 31.0 Sec (11.4-14.6)
[2025-10-08 23:17] VITALS: BP 86/62
[2025-10-08] MEDS: PROTONIX 100 IV (23:22)
[2025-10-08 23:34] VITALS: BP 95/61
[2025-10-08 23:36] VITALS: BP 95/61
[2025-10-09] VITALS (18 sets, daily range): BP systolic 85–117; BP diastolic 51–80; BMI 31.6
--- NOTE | 2025-10-09 01:27 | HPS.HSE ---
Family Physician
-
Family Physician: William Bellamy
Chief Complaint
-
Weakness, SOB
History of Present Illness
Patient is a 50y M with PMH significant for ESRD on HD, mechanical MVR on Coumadin and recent GI bleeding episode who presents to ED complaining of weakness and fatigue. Patient states that he felt extremely weak following his HD session on
Tuesday. His symptoms have progressed throughout the weekend. He reports SOB with even minimal activity. He feels extremely weak / tired. Patient has also noted black, tarry stools - similar to those he has had in past with GI blood loss.
Patient was admitted 08/06 - 08/17 with GI bleed. EGD / Colonoscopy done at that time with no obvious source of bleeding. His INR initially on that visit was > 7.
Patient was advised to complete a capsule study as an outpatient. He states that he did this about 3 weeks ago; however, the capsule was not retrieved.
Patient denies any abdominal pain, diarrhea, N/V, etc.
No chest pain or palpitations. No dyspnea at rest.
He took his last dose of Coumadin Tuesday evening. He is not sure of the dose.
Medical History
Past Medical History
Past Medical History: Reports Other
Additional Past Medical History:
ESRD on HD (--)
Atrial Fibrillation
JOVITA
Hypertension
Chronic Hypoxemic Respiratory Failure (3 lpm at baseline)
Mitral Valve Endocarditis
Chronic HFrEF
Hypothyroidism
Cecal Ulcer
Anemia of Chronic Disease
Obesity
Depression
Past Surgical History: Reports Other
Additional Past Surgical History:
Mechanical Mitral Valve Replacement
LUE AVF
AICD Placement / Removal (due to infection)
Social History
Tobacco: Former Smoker
Alcohol: None
Drug: None
Living: Group Home
Family History
Family History: Other (CVA, ESRD)
Allergies / Home Medications
Allergies reflects when Allergies were last updated in [facility].
Home Medications with original date entered in [facility]
Allergy/Medication List:
Allergies
Allergy/AdvReac Type Severity Reaction Status Date / Time
dalteparin,porcine Allergy Unknown Verified 10/08/25 23:33
enoxaparin Allergy Unknown, Verified 10/08/25 23:33
[facility] record
isosorbide Allergy Unknown, Verified 10/08/25 23:33
[facility] record
meperidine Allergy Unknown, Verified 10/08/25 23:33
[facility] record
piperacillin sodium (From Allergy Itching; Verified 10/08/25 23:33
Zosyn) Tolerated
AMOXICILLIN
shellfish derived Allergy ALLERGY-FISH Verified 10/08/25 23:33
EXCEPT TUNA
tazobactam sodium (From Allergy Itching Verified 10/08/25 23:33
Zosyn)
Home Medications
gabapentin 300 mg capsule 300 mg PO HS Pain 03/11/15
polyethylene glycol 3350 17 gram oral powder packet 17 grams PO SUTUTHSA constipation 02/23/17
atorvastatin 20 mg tablet 20 mg PO HS High cholesterol 10/04/18
sevelamer carbonate 800 mg tablet 800 mg PO MEALS Kidney Disease 10/04/18
pantoprazole 40 mg tablet,delayed release 40 mg PO DAILY Gastrointestinal issue 01/17/20
acetaminophen 325 mg tablet 650 mg PO Q4HPRN PRN mild pain/temp>100F 10/14/23
budesonide 0.25 mg/2 mL suspension for nebulization 0.25 mg inhalation R [id number] PRN SOB/wheezing 10/14/23
midodrine 10 mg tablet 10 mg PO Q6H Hold SBP >/= 150 10/14/23
sennosides 8.6 mg tablet (senna) 8.6 mg PO HS Constipation 10/14/23
albuterol sulfate 90 mcg/actuation aerosol inhaler 2 puff inhalation R Q4HPRN PRN asthma 09/07/24
bupropion HCl 150 mg tablet,12 hr sustained-release (Wellbutrin SR) 150 mg PO MOWEFR depression/anxiety 09/10/24
fludrocortisone 0.1 mg tablet 0.1 mg PO DAILY Blood pressure #30 tabs 09/14/24
bisacodyl 10 mg rectal suppository (Dulcolax (bisacodyl)) 10 mg OR DAILYPRN PRN constipation 12/14/24
diphenhydramine HCl 25 mg tablet (Benadryl Allergy) 25 mg PO Q6HPRN PRN allergies 12/14/24
fluticasone furoate 200 mcg/actuation blister powder for inhalation 1 inh inhalation R DAILY Lung/Breathing Issues 05/15/25
lamotrigine 200 mg tablet (Lamictal) 200 mg PO BID Neurological Condition 05/15/25
levothyroxine 175 mcg/mL oral solution (Tirosint-Nessa) 210 mcg PO DAILY Thyroid 05/15/25
lidocaine-prilocaine 2.5 %-2.5 % topical cream 1 applic topical MOWEFR apply to L arm fistula 05/15/25
vitamin B complex and vitamin C no.20-folic acid 1 mg capsule (Renal Caps) 1 cap PO HS Supplement 05/15/25
digoxin 125 mcg (0.125 mg) tablet 62.5 mcg (1/2 x 125 mcg (0.125 mg)) PO NOON 30 days #15 tabs 08/17/25
tramadol 50 mg tablet 25 mg (1/2 x 50 mg) PO [id number] PRN moderate pain #0 tabs 08/17/25
trazodone 100 mg tablet 150 mg (1.5 x 100 mg) PO HS@0000 depression/sleep #0 tabs 08/17/25
warfarin 7.5 mg tablet 7.5 mg PO DAILY 10/08/25
Review of Systems
-
History Source: Patient
A 12 point ROS was completed and negative except as noted: Yes
Constitutional: Denies Fever or Chills
Respiratory: Reports Trouble Breathing; Denies Cough
Cardiac: Denies Chest Pain or Palpitations
Abdomen/GI: Reports Black Stools; Denies Abdominal Pain, Nausea, Vomiting or Diarrhea
Musculoskeletal: Denies Edema
Neurological: Denies Dizzy or Headache
Psych: Denies Depression or Anxiety
Physical Exam
Vital Signs
Vital Signs
Temp Pulse Resp BP Pulse Ox
98 F 100 18 85/66 97
10/08/25 23:36 10/09/25 01:00 10/09/25 01:00 10/09/25 00:53 10/09/25 01:00
Physical Exam
General: Other (50y M in no acute distress.)
HEENT: Moist mucous membranes and PERRLA
Respiratory: Other (Scattered rales bilaterally.)
Cardiac: S1/S2, Irregular Rhythm and Murmur (II/ SREE. Mechanical S1.)
GI: Soft, Non Distended, Normal Bowel Sounds and Other (Mild, diffuse tenderness without rebound / guarding.)
Musculoskeletal: No Clubbing, No Cyanosis and No Edema
Neuro: AO x 3
Laboratory Results
-
10/08/25 20:25
10/08/25 20:25
Laboratory Results
PT 31.0 Sec (11.4-14.6) H 10/08/25 22:40
INR 2.96 10/08/25 22:40
APTT 45.2 Sec (23.4-35.0) H 10/08/25 22:40
Total Bilirubin 0.7 mg/dl (0.2-1.3) 10/08/25 20:25
AST 33 U/L (17-59) 10/08/25 20:25
ALT 29 U/L (0-50) 10/08/25 20:25
Alkaline Phosphatase 122 U/L (38-126) 10/08/25 20:25
Impression/Plan
-
A/P: Patient is a 50y M with PMH significant for A-Fib, mechanical MVR and ESRD on HD who presents to ED complaining of fatigue, SOB and black, tarry stools.
Acute Blood Loss Anemia
Anemia of CKD
GI Bleed / Melena
- Admit for further evaluation and treatment.
- Hgb = 5.4 compared to prior baseline 7-8.
- IV PPI BID.
- Transfusion ordered in the ED - follow H&H and provide additional PRBCs if needed.
- GI evaluation for any additional recommendations. Recent EGD / Colonoscopy without obvious source for bleeding.
- Hold Coumadin acutely. INR today is in range at 2.96.
- Follow for any new / worsening symptoms.
Mechanical MVR
- Hold Coumadin acutely given GI bleeding. Last dose was Tuesday PM.
- May need heparin bridge if INR falls below 2 and no further active bleeding.
Permanent Atrial Fibrillation
- Continue digoxin. Monitor on telemetry.
- Holding Coumadin acutely as noted above.
ESRD on HD
Chronic Orthostatic Hypotension
- -- HD schedule.
- Nephrology evaluation for HD needs during hospital stay.
- Continue midodrine with holding parameters.
- Continue Florinef.
Chronic Hypoxemic Respiratory Failure
Chronic Cough
- Patient on 3 lpm at baseline. Imaging shows interstitial markings - ? inflammatory v infiltrative disease, etc.
- Continue current inhaler regimen. Nebs PRN.
- Would likely benefit from Pulm evaluation as an outpatient.
Seizure Disorder
- Continue Lamictal.
Hypothyroidism
- Continue T4 supplementation.
DVT Prophylaxis: SCDs
Code Status: Full
--- NOTE | 2025-10-09 05:00 | PTCARENOTE ---
Recieved pt. from ED. Pt. pulled over from stretcher to bed. VSS and pt. AAOx4. Pt. oriented to unit and call garg placed within reach. Pt. care ongoing.
[2025-10-09] MEDS: SYNTHROID 200 MCG PO (05:23)
[2025-10-09] MEDS: TIGAN 100 MG IM (05:24)
[2025-10-09 06:10] LABS: INR 2.87; PT 30.3 Sec (11.4-14.6)
[2025-10-09 06:30] LABS: Blood Urea Nitrogen 51 mg/dl (9-20); Calcium 7.8 mg/dl (8.4-10.2); Carbon Dioxide 29 mmol/L (22-30); Chloride 93 mmol/L (98-107); Estimated Creatinine Clearance 14 ml/min; Glucose 95 mg/dl (70-99); Magnesium 2.2 mg/dl (1.6-2.3); Potassium 3.6 mmol/L (3.5-5.1); Sodium 131 mmol/L (135-145); eGFR 7.70
[2025-10-09 06:32] LABS: Hematocrit 18.4 % (39.0-52.0); Hemoglobin 6.0 g/dL (13.0-18.0)
[2025-10-09] MEDS: PULMICORT 0.5 MG INH ×2 (08:29→20:08)
[2025-10-09] MEDS: DUONEB 3 ML INH ×4 (08:29→20:08)
--- NOTE | 2025-10-09 08:49 | W.PN.HOSP.TC ---
Addendum entered and electronically signed by Sulaiman Solorzano MD 10/09/25 13:59:
Transferred to IMU for closer monitoring given high risk for decompensation from GI bleed, respiratory status, cardiac status, and renal status.
Original Note:
Today's Communication/Plan
-
Blood transfusion. Monitor hemoglobin. GI consult and EGD in a.m.
Assessment / Plan
Assessment / Plan
Physical Exam
General: Other (50y M in no acute distress.)
HEENT: Moist mucous membranes and PERRLA
Respiratory: Other (Scattered rales bilaterally.)
Cardiac: S1/S2, Irregular Rhythm and Murmur (II/ SREE. Mechanical S1.)
GI: Soft, Non Distended, Normal Bowel Sounds and Other (Mild, diffuse tenderness without rebound / guarding.)
Musculoskeletal: No Clubbing, No Cyanosis and No Edema
Neuro: AO x 3, no neuro deficits
A/P:
A/P: Patient is a 50y M with PMH significant for A-Fib, mechanical MVR and ESRD on HD who presents to ED complaining of fatigue, SOB and black, tarry stools.
Acute Blood Loss Anemia
Anemia of CKD
GI Bleed / Melena
Admit for further evaluation and treatment.
Hgb = 5.4 compared to prior baseline 7-8. Latest hemoglobin 6.2--> plan to transfuse another unit of blood today. Will let nephrology know in case he needs hemodialysis.
IV PPI BID.
Transfusion ordered in the ED - follow H&H and provide additional PRBCs if needed.
GI evaluation for any additional recommendations. Recent EGD / Colonoscopy without obvious source for bleeding. Plan for upper endoscopy tomorrow
Hold Coumadin acutely. INR today is at 2.87
Follow for any new / worsening symptoms.
Mechanical MVR
Hold Coumadin acutely given GI bleeding. Last dose was Tuesday PM.
May need heparin bridge if INR falls below 2 and no further active bleeding.
Permanent Atrial Fibrillation
Continue digoxin. Monitor on telemetry.
Holding Coumadin acutely as noted above.
ESRD on HD
Chronic Orthostatic Hypotension
- HD schedule.
Nephrology evaluation for HD needs during hospital stay.
Continue midodrine with holding parameters.
Continue Florinef.
Chronic Hypoxemic Respiratory Failure
Chronic Cough
Patient on 3 lpm at baseline. Imaging shows interstitial markings - ? inflammatory v infiltrative disease, etc.
Continue current inhaler regimen. Nebs PRN.
Would likely benefit from Pulm evaluation as an outpatient.
Seizure Disorder
Continue Lamictal.
Hypothyroidism
Continue T4 supplementation.
DVT Prophylaxis: SCDs
Code Status: Full
Anticipated Discharge: > 48 hours
Subjective/Interval History
-
Date of Service: October 09, 2025
Objective Data
-
Labs:
Laboratory Results
10/08/25 10/08/25 10/09/25
20:25 22:40 05:32
Hgb 6.0 L*
Hct 18.4 L*
PT 31.0 H 30.3 H
INR 2.96 2.87
APTT 45.2 H
Sodium 130 L 131 L
Potassium 3.4 L 3.6
Chloride 90 L 93 L
Carbon Dioxide 27 29
BUN 46 H 51 H
Creatinine 7.0 H* 7.8 H*
Glucose 105 H 95
Calcium 8.1 L 7.8 L
Total Bilirubin 0.7
AST 33
ALT 29
Alkaline Phosphatase 122
10/09/25 10/09/25 10/09/25
11:20 17:20 23:20
Hgb Pending Pending Pending
Hct Pending Pending Pending
PT
INR
APTT
Sodium
Potassium
Chloride
Carbon Dioxide
BUN
Creatinine
Glucose
Calcium
Total Bilirubin
AST
ALT
Alkaline Phosphatase
Vital Signs:
Vital Signs
Temp Pulse Resp BP Pulse Ox
98.0 F 95 16 102/51 100
10/09/25 07:30 10/09/25 08:36 10/09/25 08:36 10/09/25 07:30 10/09/25 08:36
I&O
10/08/25 10/09/25 10/10/25
06:59 06:59 06:59
Intake Total 250 / 250
Balance 250 / 250
[2025-10-09] MEDS: PROTONIX IV 40 MG IV ×2 (09:37→20:29)
[2025-10-09] MEDS: NSS (PRESERVATIVE FREE) 10 ML IV ×2 (09:37→20:29)
[2025-10-09] MEDS: LAMICTAL 200 MG PO ×2 (09:38→20:29)
[2025-10-09] MEDS: FLUSH (NSS) 2 FLUSH IV (09:38)
[2025-10-09] MEDS: FLORINEF 0.1 MG PO (09:38)
--- NOTE | 2025-10-09 11:18 | CON.GI ---
Addendum entered and electronically signed by Josh Galdamez MD 10/09/25 14:18:
The patient was seen and examined by me independently in collaboration with the nurse practitioner.
Past medical history/social history/medications/allergies/family history reviewed.
Lab data and imaging data reviewed.
50-year-old male history of end-stage renal dialysis, mechanical MVR, A-fib on Coumadin known to us from prior admission August 06 where he came in with red blood and melena in the setting of a supratherapeutic INR. He ultimately underwent an
upper endoscopy with Dr. Patel li on August 08 which showed some gastric polyps that were biopsied and mild portal hypertensive gastropathy and a colonoscopy with me on August 12 which showed multiple polyps in the colon. He underwent capsule
endoscopy which unfortunately was never retrieved. He did undergo an x-ray that showed that the capsule has passed. He is now presenting again with recurrent anemia and dark stools for the last 3 days and fatigue and was found to have a hemoglobin
of 5.4. Most likely I suspect he has a small bowel bleed. Capsule seems to be difficult due to his location at [facility]. Plan for potential push enteroscopy tomorrow pending INR. He is also due for dialysis tomorrow. In the interim, okay
to continue heparin drip. Recommend IV PPI twice daily. Trend hemoglobin. Risk, alternatives, benefits of push enteroscopy reviewed with patient risks including but not limited to bleeding, infection, perforation, patient was agreeable. Further
recommendations pending push enteroscopy.
Original Note:
Consultation
-
Date/Time Consultation Requested: 10/09/25 0440
Date/Time Consultation Performed: 10/09/25 1120
Requesting Provider: Russell Nguyen DO
Performing Provider: FABIEN Hogue, Gladys Galdamez MD
Reason for Consultation: anemia, dark stools
Medical History
Chief Complaint / HPI
Chief Complaint: Active bleed
History of Present Illness:
Pt is a 50yo with hx mechanical MVR, afib, on coumadin, AICD with removal, chronic hypoxemic respiratory failure, HFrEF , CVA, ESRD on hemodialysis with AV fistula with prior bleeding around fistula, hypothyroidism, hyperlipidemia, and GI
bleeding in August 2025. In review of record pt was admitted in August with elevated INR 7.6 with bleeding from fistula but also bloody stools. He completed work up as noted with melanosis, TA polyps, hemorrhoids, multiple gastric polyps -
fundic gland, clip placed with oozing ans site portal HTN gastropathy, non bleeding duodenal ectasia. He did proceed for capsule but unfortunately capsule not retrieved and follow up X ray not found. He now returns with recurrent anemia and
reports black stools for 3 days and fatigue over last week.
He otherwise admits to nausea and looser dark stools, but denies odynophagia, dysphagia, GERD, vomiting, constipation or red blood in stools. On admission hbg 5.4 qwith last 7.6 on 08/17/25.
08/12/2025- colonoscopy -- protano-- -difficulty due to looping with need for pressure - Melanosis in the colon- One 2 mm polyp in the ascending colon, removed with a jumbo cold forceps. Resected and retrieved. One 8 mm polyp in the transverse
colon, removed with a cold snare. Resected and retrieved. Two 10 to 18 mm polyps in the transverse colon, removed with a hot snare. Resected and retrieved. Hemorrhoids. bx TA all polyps
08/08/25- EGD mekapati - Normal esophagus. no esophageal varices seen- Multiple gastric polyps. Biopsied. Clip was placed to stop oozing at biopsy site. 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 Portal hypertensive gastropathy. no gastric varices
seen. One non-bleeding angioectasia in the duodenum. bx fundic gland polyp
08/27/25-- capsule not retrieved not seen on follow up X ray
Past Medical History
Past Medical History: Arrhythmias (afib ), CHF, HTN, Hypothyroidism, Renal Failure (ESRD ), Psychiatric (depression) and Other (JOVITA, chronic hypoxia, mitral valvue endocarditis, cecal ulcer, anemia of chronic disease, obesity )
Past Surgical History: Cardiac (MVR, AICD with removal due to infection ) and Other (AV fistula )
Social History
Tobacco: Non-Smoker
Alcohol: Occasional
Drug: None
Living: Half-Way
Employment: Disabled
Family History
Family History: Reviewed & Not Pertinent
Allergies / Home Medications
Allergy/AdvReac Type Severity Reaction Status Date / Time
dalteparin,porcine Allergy Unknown Verified 10/08/25 23:33
enoxaparin Allergy Unknown, Verified 10/08/25 23:33
[facility] record
isosorbide Allergy Unknown, Verified 10/08/25 23:33
[facility] record
meperidine Allergy Unknown, Verified 10/08/25 23:33
[facility] record
piperacillin sodium (From Allergy Itching; Verified 10/08/25 23:33
Zosyn) Tolerated
AMOXICILLIN
shellfish derived Allergy ALLERGY-FISH Verified 10/08/25 23:33
EXCEPT TUNA
tazobactam sodium (From Allergy Itching Verified 10/08/25 23:33
Zosyn)
�Medication �Instructions �Recorded
gabapentin 300 mg capsule 300 mg PO HS Pain 03/11/15
polyethylene glycol 3350 17 gram 17 grams PO SUTUTHSA constipation 02/23/17
oral powder packet
atorvastatin 20 mg tablet 20 mg PO HS High cholesterol 10/04/18
sevelamer carbonate 800 mg tablet 800 mg PO MEALS Kidney Disease 10/04/18
pantoprazole 40 mg tablet,delayed 40 mg PO DAILY Gastrointestinal 01/17/20
release issue
acetaminophen 325 mg tablet 650 mg PO Q4HPRN PRN mild 10/14/23
pain/temp>100F
budesonide 0.25 mg/2 mL suspension 0.25 mg inhalation R [id number] PRN 10/14/23
for nebulization SOB/wheezing
midodrine 10 mg tablet 10 mg PO Q6H Hold SBP >/= 150 10/14/23
sennosides 8.6 mg tablet (senna) 8.6 mg PO HS Constipation 10/14/23
albuterol sulfate 90 mcg/actuation 2 puff inhalation R Q4HPRN PRN 09/07/24
aerosol inhaler asthma
bupropion HCl 150 mg tablet,12 hr 150 mg PO MOWEFR depression/anxiety 09/10/24
sustained-release (Wellbutrin SR)
fludrocortisone 0.1 mg tablet 0.1 mg PO DAILY Blood pressure #30 09/14/24
tabs
bisacodyl 10 mg rectal suppository 10 mg TN DAILYPRN PRN constipation 12/14/24
(Dulcolax (bisacodyl))
diphenhydramine HCl 25 mg tablet 25 mg PO Q6HPRN PRN allergies 12/14/24
(Benadryl Allergy)
fluticasone furoate 200 1 inh inhalation R DAILY 05/15/25
mcg/actuation blister powder for Lung/Breathing Issues
inhalation
lamotrigine 200 mg tablet 200 mg PO BID Neurological 05/15/25
(Lamictal) Condition
levothyroxine 175 mcg/mL oral 210 mcg PO DAILY Thyroid 05/15/25
solution (Tirosint-Nessa)
lidocaine-prilocaine 2.5 %-2.5 % 1 applic topical MOWEFR apply to L 05/15/25
topical cream arm fistula
vitamin B complex and vitamin C 1 cap PO HS Supplement 05/15/25
no.20-folic acid 1 mg capsule
(Renal Caps)
digoxin 125 mcg (0.125 mg) tablet 62.5 mcg (1/2 x 125 mcg (0.125 08/17/25
mg)) PO NOON 30 days #15 tabs
tramadol 50 mg tablet 25 mg (1/2 x 50 mg) PO [id number] PRN 08/17/25
moderate pain #0 tabs
trazodone 100 mg tablet 150 mg (1.5 x 100 mg) PO HS@0000 08/17/25
depression/sleep #0 tabs
warfarin 7.5 mg tablet 7.5 mg PO DAILY 10/08/25
Review of Systems
-
History Source: Patient
Constitutional: Reports Other (wt up and down with HD)
EENT: Reports No Symptoms
Respiratory: Reports Trouble Breathing (at time with anemia and cardiac issues )
Cardiac: Reports Chest Pain
Abdomen/GI: Reports Abdominal Pain (last admission now improved ), Nausea and Black Stools
: Reports Other (anuric with HD)
Musculoskeletal: Reports No Symptoms
Skin: Reports No Symptoms
Neurological: Reports Dizzy and Weakness
Endocrine: Reports No Symptoms
Hematologic/Lymphatic: Reports Bleeding
Vital Signs
Temp Pulse Resp BP Pulse Ox
98.0 F 95 16 102/51 100
10/09/25 07:30 10/09/25 08:36 10/09/25 08:36 10/09/25 07:30 10/09/25 08:36
Physical Exam
Exam
General: Well Developed, Well Nourished and No Apparent Distress
HEENT: Normocephalic and Anicteric
Respiratory: Other (decreased )
Cardiac: Regular Rhythm
GI: Soft, Non Tender and Non Distended
Musculoskeletal: No Clubbing and No Cyanosis
Skin: Warm and Dry
Neuro: Awake, Alert and AO x 3
Psych: Calm
Results
WBC 15.3 10^3/uL (4.8-10.8) H 10/08/25 20:25
Hgb 6.0 g/dL (13.0-18.0) L* 10/09/25 05:32
Hct 18.4 % (39.0-52.0) L* 10/09/25 05:32
MCV 96.0 fL (80.0-94.0) H 10/08/25 20:25
Plt Count 311 10^3/uL (130-400) 10/08/25 20:25
Absolute Neuts (auto) 13.1 10^3/uL (1.4-6.5) H 10/08/25 20:25
PT 30.3 Sec (11.4-14.6) H 10/09/25 05:32
INR 2.87 10/09/25 05:32
APTT 45.2 Sec (23.4-35.0) H 10/08/25 22:40
Sodium 131 mmol/L (135-145) L 10/09/25 05:32
Potassium 3.6 mmol/L (3.5-5.1) 10/09/25 05:32
Chloride 93 mmol/L (98-107) L 10/09/25 05:32
Carbon Dioxide 29 mmol/L (22-30) 10/09/25 05:32
BUN 51 mg/dl (9-20) H 10/09/25 05:32
Creatinine 7.8 mg/dL (0.7-1.3) H* 10/09/25 05:32
Calcium 7.8 mg/dl (8.4-10.2) L 10/09/25 05:32
Total Bilirubin 0.7 mg/dl (0.2-1.3) 10/08/25 20:25
AST 33 U/L (17-59) 10/08/25 20:25
ALT 29 U/L (0-50) 10/08/25 20:25
Alkaline Phosphatase 122 U/L (38-126) 10/08/25 20:25
Diagnostic Image Results:
08/07/25
IMPRESSION: Patchy areas of linear and groundglass opacity within the visualized lower lungs, similar appearance to prior CT examination, most likely representing linear atelectasis and/or scarring.
Morphology and contour of the liver suggestive of cirrhosis. No evidence for hepatic mass lesion. There is no splenomegaly and no evidence for ascites.
Severe atrophy of both kidneys, in this patient with a history of hemodialysis.
Mild to moderate distention of the rectum with stool, transverse dimension of 5.5 cm, with no findings to suggest stercoral colitis. No evidence for bowel obstruction and no evidence of free intraperitoneal air.
Prior GI Procedures:
08/12/2025- colonoscopy -- protano-- -difficulty due to looping with need for pressure - Melanosis in the colon- One 2 mm polyp in the ascending colon, removed with a jumbo cold forceps. Resected and retrieved. One 8 mm polyp in the transverse
colon, removed with a cold snare. Resected and retrieved. Two 10 to 18 mm polyps in the transverse colon, removed with a hot snare. Resected and retrieved. Hemorrhoids. bx TA all polyps
08/08/25- EGD mekapati - Normal esophagus. no esophageal varices seen- Multiple gastric polyps. Biopsied. Clip was placed to stop oozing at biopsy site. 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 Portal hypertensive gastropathy. no gastric varices
seen. One non-bleeding angioectasia in the duodenum. bx fundic gland polyp
08/27/25-- capsule not retrieved not seen on follow up X ray
Assessment / Plan
-
Pt is a 50yo with hx mechanical MVR, afib, on coumadin, AICD with removal, chronic hypoxemic respiratory failure, HFrEF , CVA, ESRD on hemodialysis with AV fistula with prior bleeding around fistula, hypothyroidism, hyperlipidemia, and GI
bleeding in August 2025. In review of record pt was admitted in August with elevated INR 7.6 with bleeding from fistula but also bloody stools. He completed work up as noted with melanosis, TA polyps, hemorrhoids, multiple gastric polyps -
fundic gland, clip placed with oozing ans site portal HTN gastropathy, non bleeding duodenal ectasia. He did proceed for capsule but unfortunately capsule not retrieved and follow up X ray not found. He now returns with recurrent anemia and
reports black stools for 3 days and fatigue over last week.
He otherwise admits to nausea and looser dark stools, but denies odynophagia, dysphagia, GERD, vomiting, constipation or red blood in stools. On admission hbg 5.4 qwith last 7.6 on 08/17/25.
08/12/2025- colonoscopy -- protano-- -difficulty due to looping with need for pressure - Melanosis in the colon- One 2 mm polyp in the ascending colon, removed with a jumbo cold forceps. Resected and retrieved. One 8 mm polyp in the transverse
colon, removed with a cold snare. Resected and retrieved. Two 10 to 18 mm polyps in the transverse colon, removed with a hot snare. Resected and retrieved. Hemorrhoids. bx TA all polyps
08/08/25- EGD mekapati - Normal esophagus. no esophageal varices seen- Multiple gastric polyps. Biopsied. Clip was placed to stop oozing at biopsy site. 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 Portal hypertensive gastropathy. no gastric varices
seen. One non-bleeding angioectasia in the duodenum. bx fundic gland polyp
08/27/25-- capsule not retrieved not seen on follow up X ray
-recurrent anemia with dark stool prior to admission
-hx admission on August with GI bleeding with prior work up
-History of mitral valve replacement- on warfarin
-Atrial fibrillation
other med problems
AICD with removal, chronic hypoxemic respiratory failure, HFrEF , CVA, ESRD on hemodialysis with AV fistula with prior bleeding around fistula, hypothyroidism, hyperlipidemia
PLAN:
etiology of bleeding related to mild portal HTN gastropathy, AVM, gastric polyps as noted on prior EGD vs other
plan for enteroscopy 10/10 if INR stable to proceed
ok for diet today, NPO in AM
trend hbg 1 unit PRBC given on admission
reviewed with renal for HD due for 10/10
cont PPI BID
I offered to call sister-- pt declined
-
-
Thank you for consultation and allowing me to participate in the patient's care. Please call the project consultant GI physician during the after hours with any questions or concerns.
--- NOTE | 2025-10-09 11:36 | CM ---
Patient seen at bedside
IA completed
dx: weakness/gi bleed, acute blood loss
resides at [facility] -- referral entered in [facility]
states receives dialysis at [facility], [facility] transports
[facility] M-W- 7am
[facility] fax #: [phone]
PLOF: Reports wheelchair, can self propel
DME: Wheelchair, states wears oxygen 3L continuous
PCP: William Bellamy
Pharmacy: [facility]
PLAN: Return to [facility] when medically stable, CM to continue to follow
[facility]
Report #: [phone]
Fax #: [phone]
[2025-10-09 11:54] LABS: Hematocrit 19.3 % (39.0-52.0); Hemoglobin 6.2 g/dL (13.0-18.0)
[2025-10-09] MEDS: LANOXIN 62.5 MCG PO (12:39)
[2025-10-09] MEDS: VENTOLIN NEBULES 2.5 MG INH (13:21)
--- NOTE | 2025-10-09 14:59 | W.CON.NEPH ---
Consultation
-
Date/Time Consultation Requested: 10/09/2025 9 AM
Date/Time Consultation Performed: 10/09/2025 9 AM
Requesting Provider: Dr. Nguyen
Performing Provider: Dr. Brand
Reason for Consultation: ESRD
Medical History
-
Chief Complaint: ESRD
History of Present Illness:
The patient is a 50-year-old male with end-stage renal disease who dialyzes at [facility] every Tuesday and Tuesday. He has chronic respiratory failure and is maintained on bronchodilator therapy and chronic oxygen support.
He has a history of chronic hypotension and is maintained on midodrine. Ultrafiltration is difficult on dialysis due to the blood pressure. The patient has a history of a mechanical mitral valve replacement and is maintained on chronic
anticoagulation therapy in addition he also takes anticoagulation therapy for his chronic atrial fibrillation. He is on Coumadin. He came to the emergency room because of extreme weakness and shortness of breath. He had and also noticed dark
stools. He notes that his AV fistula/graft has been working fine. Hemoglobin was 5.4 on admission with an INR of 2.96
Past Medical History
1. End-stage renal disease.
2. Atrial fibrillation.
3. Obstructive sleep apnea.
4. Chronic hypotension onmidodrine support
5. Cirrhosis.
6. Chronic respiratory failure on 3 L nasal cannula.
7. History of mitral valve endocarditis with subsequent mitral
valve repair.
8. History of hypothyroidism.
9. Cecal ulcer.
10.Anemia.
11.Obesity.
12.Depression.
13.Left upper extremity AV fistula.
14.AICD explant.
15 history of rectus abdominal sheath hematoma
Social History
Tobacco: Smoker
Alcohol: None
Living: Shelter
Family History
no CKD
Family History: Not Pertinent
Allergies / Home Medications
Allergy/AdvReac Type Severity Reaction Status Date / Time
dalteparin,porcine Allergy Unknown Verified 10/08/25 23:33
enoxaparin Allergy Unknown, Verified 10/08/25 23:33
[facility] record
isosorbide Allergy Unknown, Verified 10/08/25 23:33
[facility] record
meperidine Allergy Unknown, Verified 10/08/25 23:33
[facility] record
piperacillin sodium (From Allergy Itching; Verified 10/08/25 23:33
Zosyn) Tolerated
AMOXICILLIN
shellfish derived Allergy ALLERGY-FISH Verified 10/08/25 23:33
EXCEPT TUNA
tazobactam sodium (From Allergy Itching Verified 10/08/25 23:33
Zosyn)
�Medication �Instructions �Recorded �Confirmed �Type
gabapentin 300 mg capsule 300 mg PO HS Pain 03/11/15 10/08/25 History
polyethylene glycol 3350 17 gram 17 grams PO SUTUTHSA constipation 02/23/17 10/08/25 History
oral powder packet
atorvastatin 20 mg tablet 20 mg PO HS High cholesterol 10/04/18 10/08/25 History
sevelamer carbonate 800 mg tablet 800 mg PO MEALS Kidney Disease 10/04/18 10/08/25 History
pantoprazole 40 mg tablet,delayed 40 mg PO DAILY Gastrointestinal 01/17/20 10/08/25 History
release issue
acetaminophen 325 mg tablet 650 mg PO Q4HPRN PRN mild 10/14/23 10/08/25 History
pain/temp>100F
budesonide 0.25 mg/2 mL suspension 0.25 mg inhalation R [id number] PRN 10/14/23 10/08/25 History
for nebulization SOB/wheezing
midodrine 10 mg tablet 10 mg PO Q6H Hold SBP >/= 150 10/14/23 10/08/25 History
sennosides 8.6 mg tablet (senna) 8.6 mg PO HS Constipation 10/14/23 10/08/25 History
albuterol sulfate 90 mcg/actuation 2 puff inhalation R Q4HPRN PRN 09/07/24 10/08/25 History
aerosol inhaler asthma
bupropion HCl 150 mg tablet,12 hr 150 mg PO MOWEFR depression/anxiety 09/10/24 10/08/25 History
sustained-release (Wellbutrin SR)
fludrocortisone 0.1 mg tablet 0.1 mg PO DAILY Blood pressure #30 09/14/24 10/08/25 Rx
tabs
bisacodyl 10 mg rectal suppository 10 mg MT DAILYPRN PRN constipation 12/14/24 10/08/25 History
(Dulcolax (bisacodyl))
diphenhydramine HCl 25 mg tablet 25 mg PO Q6HPRN PRN allergies 12/14/24 10/08/25 History
(Benadryl Allergy)
fluticasone furoate 200 1 inh inhalation R DAILY 05/15/25 10/08/25 History
mcg/actuation blister powder for Lung/Breathing Issues
inhalation
lamotrigine 200 mg tablet 200 mg PO BID Neurological 05/15/25 10/08/25 History
(Lamictal) Condition
levothyroxine 175 mcg/mL oral 210 mcg PO DAILY Thyroid 05/15/25 10/08/25 History
solution (Tirosint-Nessa)
lidocaine-prilocaine 2.5 %-2.5 % 1 applic topical MOWEFR apply to L 05/15/25 10/08/25 History
topical cream arm fistula
vitamin B complex and vitamin C 1 cap PO HS Supplement 05/15/25 10/08/25 History
no.20-folic acid 1 mg capsule
(Renal Caps)
digoxin 125 mcg (0.125 mg) tablet 62.5 mcg (1/2 x 125 mcg (0.125 08/17/25 10/08/25 Rx
mg)) PO NOON 30 days #15 tabs
tramadol 50 mg tablet 25 mg (1/2 x 50 mg) PO [id number] PRN 08/17/25 10/08/25 Rx
moderate pain #0 tabs
trazodone 100 mg tablet 150 mg (1.5 x 100 mg) PO HS@0000 08/17/25 10/08/25 Rx
depression/sleep #0 tabs
warfarin 7.5 mg tablet 7.5 mg PO DAILY 10/08/25 10/08/25 History
Review of Systems
-
Fatigue shortness of breath dark stools
All other systems: Negative unless noted
Physical Exam
Vital Signs
Vital Signs
Temp Pulse Resp BP Pulse Ox
98.9 F 110 20 103/54 100
10/09/25 14:55 10/09/25 14:55 10/09/25 14:55 10/09/25 14:55 10/09/25 13:24
Lab Results
WBC 15.3 10^3/uL (4.8-10.8) H 10/08/25 20:25
RBC 1.77 10^6/uL (4.70-6.10) L 10/08/25 20:25
Plt Count 311 10^3/uL (130-400) 10/08/25 20:25
Sodium 131 mmol/L (135-145) L 10/09/25 05:32
Potassium 3.6 mmol/L (3.5-5.1) 10/09/25 05:32
Chloride 93 mmol/L (98-107) L 10/09/25 05:32
Carbon Dioxide 29 mmol/L (22-30) 10/09/25 05:32
BUN 51 mg/dl (9-20) H 10/09/25 05:32
Creatinine 7.8 mg/dL (0.7-1.3) H* 10/09/25 05:32
eGFR 7.70 10/09/25 05:32
Glucose 95 mg/dl (70-99) 10/09/25 05:32
Calcium 7.8 mg/dl (8.4-10.2) L 10/09/25 05:32
Phosphorus 2.5 mg/dl (2.5-4.5) 10/09/25 05:32
Albumin 4.1 g/dl (3.5-5.0) 10/08/25 20:25
Laboratory Tests
08/17/25
08:18
Hgb 7.6 L
Physical Exam
Patient is awake alert oriented and in no distress. Mood and affect were pleasant, insight and judgment were good. Pupils are equal round and reactive to light, extraocular movements are intact, sclera were anicteric. Hearing was normal, ears and
nose are intact. Oropharynx was clear. Neck was supple with trachea midline and no thyromegaly. Heart was regular rate and rhythm without rubs. Lower extremities without edema. Lungs were clear to auscultation bilaterally and with normal
excursion. Abdomen was soft, nontender, with normal active bowel sounds, and no hepatosplenomegaly. Skin was without rash and with normal turgor. AV fistula/graft with good thrill and bruit
Data Reviewed
-
Radiology: Image Personally Visualized and interpreted (Chest x-ray 10/09/2025 by my reading cardiomegaly vascular prominence)
Medical Tests (Nuc Med, Echo etc): Image Personally Visualized and interpreted (EKG 10-31 by my reading atrial fibrillation nonspecific T wave abnormality prolonged QT)
Labs: Labs Reviewed by me
Old Records: Reviewed
Assessment/Plan
-
Impression:
End-stage renal disease.
AV graft
GI bleed
Anemia.
Chronic hypotension on midodrine support
Hyperphosphatemia.
mechanical aortic valve on chronic anticoagulation
AFib. Severe tricuspid regurgitation and severe pulmonary hypertension, heart failure reduced ejection fraction 45%
Plan:
HD today
midodrine, joseinef continues for bp support on HD
Transfuse as needed
fluid restriction and dietary restrictions directed for ESRD
For enteroscopy tomorrow
[2025-10-09] MEDS: ROBITUSSIN 100 MG PO ×2 (15:57→20:30)
--- NOTE | 2025-10-09 16:35 | W.PN.NEPH.HD ---
Assessment
-
Pt seen on HD. no complaints. VSS, access ok
flows difficult
transfusing on HD
Progress Note - Hemodialysis
-
Date of Service: October 09, 2025
Duration: 30 minutes and 3 hours
Potassium Bath: 2
Calcium Bath: 2.5
Opti-Dialyzer: 160
Ultrafiltration: Other (2.5)
Blood Flow: 400
Dialysate Flow: 600
Heparin: 0
EPO: [id number]
[2025-10-09] MEDS: RETACRIT 10000 UNITS IV (16:40)
[2025-10-09] MEDS: TYLENOL 650 MG PO (20:30)
[2025-10-09] MEDS: DESYREL 150 MG PO (23:21)
[2025-10-10] VITALS (7 sets, daily range): BP systolic 103–126; BP diastolic 57–71; BMI 31.2
[2025-10-10 00:56] LABS: Hematocrit 22.5 % (39.0-52.0); Hemoglobin 7.2 g/dL (13.0-18.0)
--- NOTE | 2025-10-10 01:01 | W.PN.UPDATE ---
Update Note
Progress Note Update
0100 pt was ordered to be transferred to IMU at 2pm. Pt was never transfered for unclear reasons.
Pt has remained stable with sbp low 100s and maintaining good 02 status. No signs of bleeding. HH improved from 6.2 to 7.2
Due to pt stability, imu transfer cx for now.
[2025-10-10] MEDS: SYNTHROID 200 MCG PO (05:11)
[2025-10-10 06:25] LABS: Hematocrit 21.1 % (39.0-52.0); Hemoglobin 7.1 g/dL (13.0-18.0); Mean Corp Hgb Conc. 33.6 g/dL (33.0-37.0); Mean Corpuscular Volume 93.4 fL (80.0-94.0); Platelet Count 266 10^3/uL (130-400); Red Cell Dist. Width 20.3 % (11.5-14.5)
[2025-10-10 06:29] LABS: INR 2.25; PT 24.5 Sec (11.4-14.6)
[2025-10-10] MEDS: NSS (PRESERVATIVE FREE) 10 ML IV ×2 (07:36→21:14)
[2025-10-10] MEDS: PROTONIX IV 40 MG IV ×2 (07:36→21:14)
[2025-10-10] MEDS: LAMICTAL 200 MG PO ×2 (07:36→21:14)
[2025-10-10] MEDS: FLORINEF 0.1 MG PO (07:36)
[2025-10-10 07:41] LABS: Blood Urea Nitrogen 24 mg/dl (9-20); Calcium 7.7 mg/dl (8.4-10.2); Carbon Dioxide 30 mmol/L (22-30); Chloride 95 mmol/L (98-107); Estimated Creatinine Clearance 21 ml/min; Glucose 99 mg/dl (70-99); Potassium 3.5 mmol/L (3.5-5.1); Sodium 134 mmol/L (135-145); eGFR 12.52
[2025-10-10] MEDS: PULMICORT 0.5 MG INH ×2 (07:59→20:05)
[2025-10-10] MEDS: DUONEB 3 ML INH ×4 (07:59→20:04)
--- NOTE | 2025-10-10 09:15 | W.PN.HOSP.TC ---
Addendum entered and electronically signed by Sulaiman Solorzano MD 10/10/25 17:02:
Hyponatremia
Addendum entered and electronically signed by Sluaiman Solorzano MD 10/10/25 17:01:
Yes, GI bleed is related to/associated with/exacerbated by Coumadin.
Original Note:
Today's Communication/Plan
-
See plan
Assessment / Plan
Assessment / Plan
Physical exam:
General: Acutely ill
HEENT: Normocephalic, Atraumatic and Moist Mucous Membranes
Respiratory: Decreased breath sounds bilateral; Negative Wheezes, Rales or Rhonchi
Cardiac: Irregular rate and rhythm and S1/S2
GI: Soft, Nontender and Nondistended
Musculoskeletal: No Clubbing, No Cyanosis. Bilateral lower extremity edema
Neuro: Lethargic, no neurological deficits
Psych: Calm
A/P:
Acute GI bleed:
Continue PPI IV twice daily
Continue monitor
Status post small bowel enteroscopy today and Endo Clip was found gastric body, 2 small semisessile polyps no bleeding, and a 10 mm semisessile polyp with bleeding status post biopsy and APC of the lesion. Status post biopsy with a cold forceps the
lesion as well. This area was marked by tattoo.
Patient noticed to be high risk of bleed by GI.
Started on clear liquid diet today
If ongoing bleeding we will need to refer to tertiary care for balloon enteroscopy
Discussed with GI when to restart anticoagulation given his history of mechanical valve--> challenging situation given his high risk of bleeding so for now no anticoagulation today but hopefully will restart tomorrow with heparin drip. His INR
today is 2.25 but the goal is 2.5-3.5.
For unclear reason patient was not transferred to IMU yesterday so for now we will continue to monitor on the floor and low threshold to transfer if decompensates.
Acute blood loss anemia and underlying anemia of chronic disease:
Status post blood transfusion
Later hemoglobin 7.1
Continue to monitor hemoglobin
Procrit as needed
End-stage renal disease on hemodialysis:
Hemodialysis per nephro
Mechanical mitral valve replacement:
Will need to start heparin tomorrow. Discussed with GI when to restart anticoagulation given his history of mechanical valve--> challenging situation given his high risk of bleeding so for now no anticoagulation today but hopefully will restart
tomorrow with heparin drip. His INR today is 2.25 but the goal is 2.5-3.5.
At very high risk of thromboembolic disease
Permanent A-fib:
Continue rate control, digoxin 62.5 mcg p.o. daily
As above-->Will need to start heparin tomorrow. Discussed with GI when to restart anticoagulation given his history of mechanical valve--> challenging situation given his high risk of bleeding so for now no anticoagulation today but hopefully will
restart tomorrow with heparin drip. His INR today is 2.25 but the goal is 2.5-3.5.
Acute on chronic HFrEF:
Monitor volume status with hemodialysis
Continue GDMT as able
Orthostatic hypotension:
Continue midodrine and fludrocortisone
Chronic hypoxic respiratory failure:
Continue home oxygen
Hypothyroidism:
Continue thyroid
Seizure disorder:
Continue AED, Lamictal
Former smoker (not formally diagnosed with COPD):
On bronchodilators scheduled
On budesonide inhalers twice a day
Other medical problems:
History of CVA
History of nonischemic cardiomyopathy
History of ICD explant due to infection back in 2005
History obstructive sleep apnea
DVT prophylaxis:
SCDs
Will start heparin and warfarin when risk of bleeding subsides
CODE STATUS:
Full code
Total time spent on today's encounter was 52 minutes which included time spent in counseling the patient/family regarding diagnosis and treatment plan as listed above, goals of care, and symptom management. Case was discussed with nursing staff,
specialists, and care coordinators/case management. All labs and imaging personally reviewed by me. Remainder the time spent in detailed review of previous records, lab data, imaging, and other medical provider documentation.
Anticipated Discharge: > 48 hours
Subjective/Interval History
-
Date of Service: October 10, 2025
Patient lethargic at the time of evaluation and just came from endoscopy suite. Afebrile
Objective Data
-
Labs:
Laboratory Results
10/09/25 10/10/25 10/10/25
18:46 00:32 06:01
WBC 11.1 H
Hgb Cancelled 7.2 L 7.1 L
Hct Cancelled 22.5 L 21.1 L
Plt Count 266
PT 24.5 H
INR 2.25
Sodium 134 L
Potassium 3.5
Chloride 95 L
Carbon Dioxide 30
BUN 24 H
Creatinine 5.2 H*
Glucose 99
Calcium 7.7 L
Vital Signs:
Vital Signs
Temp Pulse Resp BP Pulse Ox
98.4 F 107 18 112/71 100
10/10/25 07:30 10/10/25 08:02 10/10/25 08:02 10/10/25 07:30 10/10/25 08:02
I&O
10/09/25 10/10/25 10/11/25
06:59 06:59 06:59
Intake Total 250 / 250 730 / 730
Output Total 100 / 100
Balance 250 / 250 630 / 630
--- NOTE | 2025-10-10 09:38 | PN.CDI ---
CDI
- -
CDI:
Physician Documentation Request
Admit Date: 10/09/25 01:31
Dear Doctor,
Patient admitted for GI bleed.
Laboratory Tests
10/08/25 10/09/25 10/10/25
20:25 05:32 06:01
Sodium 130 L 131 L 134 L
Based on the above, could you clarify in the progress notes, the appropriate diagnosis, if significant, that supports the above abnormalities and additional evaluation, monitoring and/or treatment rendered:
Hyponatremia
Abnormal lab value insignificant
Other
Use of terms such as suspected, likely, concern for, or probable (associated with a specific diagnosis that is being evaluated, monitored, or treated as if it exists) are acceptable and can be coded in the inpatient setting, when documented at the
time of discharge.
Thank you,
Katya Wiley RN, BSN
CDI Specialist
Available via [place] text
Please use your independent medical judgment in providing your response.
--- NOTE | 2025-10-10 09:39 | PN.CDI ---
CDI
- -
CDI:
Physician Documentation Request
Admit Date: 10/09/25 01:31
Dear Doctor,
Patient admitted for GI bleed.
10/09 Hospitalist PN: 'GI Bleed / Melena...Hold Coumadin acutely given GI bleeding.'
Please clarify the relationship between these conditions:
Yes, GI bleed is related to/associated with/exacerbated by Coumadin.
No, GI bleed is not related to/associated with/exacerbated by Coumadin but it is due to ___. (Please specify)
Unable to determine
Use of terms such as suspected, likely, concern for, or probable (associated with a specific diagnosis that is being evaluated, monitored, or treated as if it exists) are acceptable and can be coded in the inpatient setting, when documented at the
time of discharge.
Thank you,
Katya Wiley RN, BSN
CDI Specialist
Available via [place] text
Please use your independent medical judgment in providing your response.
[2025-10-10] MEDS: LANOXIN 62.5 MCG PO (13:01)
--- NOTE | 2025-10-10 15:20 | W.PN.NEPH.PH ---
Today's Communication / Plan
-
HD tomorrow
Assessment/Plan
-
Impression:
End-stage renal disease.
AV graft
GI bleed
Anemia.
Chronic hypotension on midodrine support
Hyperphosphatemia.
mechanical aortic valve on chronic anticoagulation
AFib. Severe tricuspid regurgitation and severe pulmonary hypertension, heart failure reduced ejection fraction 45%
Plan:
HD tomorrow
midodrine, florinef continues for BP support on HD
Transfuse as needed
fluid restriction and dietary restrictions directed for ESRD
enteroscopy without bleeding
-
-
Date of Service: October 10, 2025
CC / HPI / ROS
-
Chief Complaint:
ESRD
History of Present Illness:
tolerated HD yesterday
BP stable
Hgb low stable 7.1
Review of Systems:
no CP/SOB
Labs
-
Labs:
WBC 11.1 10^3/uL (4.8-10.8) H 10/10/25 06:01
RBC 2.26 10^6/uL (4.70-6.10) L 10/10/25 06:01
Hgb 7.1 g/dL (13.0-18.0) L 10/10/25 06:01
Hct 21.1 % (39.0-52.0) L 10/10/25 06:01
Plt Count 266 10^3/uL (130-400) 10/10/25 06:01
Sodium 134 mmol/L (135-145) L 10/10/25 06:01
Potassium 3.5 mmol/L (3.5-5.1) 10/10/25 06:01
Chloride 95 mmol/L (98-107) L 10/10/25 06:01
Carbon Dioxide 30 mmol/L (22-30) 10/10/25 06:01
BUN 24 mg/dl (9-20) H 10/10/25 06:01
Creatinine 5.2 mg/dL (0.7-1.3) H* 10/10/25 06:01
eGFR 12.52 10/10/25 06:01
Glucose 99 mg/dl (70-99) 10/10/25 06:01
Calcium 7.7 mg/dl (8.4-10.2) L 10/10/25 06:01
Phosphorus 2.5 mg/dl (2.5-4.5) 10/09/25 05:32
Albumin 4.1 g/dl (3.5-5.0) 10/08/25 20:25
Physical Exam
-
Vital Signs:
Vital Signs
Temp Pulse Resp BP Pulse Ox
97.8 F 78 18 105/57 96
10/10/25 11:00 10/10/25 15:11 10/10/25 15:11 10/10/25 11:15 10/10/25 15:11
Cardiovascular:: Regular rate and rhythm
Respiratory:: Bilateral: Coarse
Lung Excursion:: Normal
Abdomen:: Nontender and Soft
Bowel Sounds:: Normal
Extremity Edema:: None: Bilateral:
[2025-10-10] MEDS: ROBITUSSIN 100 MG PO (21:24)
[2025-10-11] VITALS (10 sets, daily range): BP systolic 93–114; BP diastolic 29–69; BMI 30.4
[2025-10-11] MEDS: DESYREL 150 MG PO (00:17)
[2025-10-11] MEDS: TYLENOL 650 MG PO (00:17)
--- NOTE | 2025-10-11 05:15 | PTCARENOTE ---
pt with large formed/tarry bm heme positive
[2025-10-11 05:16] LABS: INR 1.61; PT 18.9 Sec (11.4-14.6)
[2025-10-11] MEDS: SYNTHROID 200 MCG PO (05:18)
[2025-10-11] MEDS: DESENEX/MITRAZOL/ZEASORB 1 APPLIC TOPICAL ×2 (07:52→19:50)
[2025-10-11] MEDS: DUONEB 3 ML INH ×4 (07:55→19:32)
[2025-10-11] MEDS: PULMICORT 0.5 MG INH ×2 (07:55→19:33)
[2025-10-11 08:27] LABS: Carbon Dioxide 26 mmol/L (22-30); Chloride 94 mmol/L (98-107); Iron 67 ug/dl (49-181); Potassium 3.6 mmol/L (3.5-5.1); Sodium 130 mmol/L (135-145)
[2025-10-11] MEDS: MANNITOL 25% 12.5 GRAMS IV ×2 (08:30→10:18)
[2025-10-11 08:36] LABS: Total Iron Binding Capacity 333 ug/dl (261-462)
[2025-10-11 08:38] LABS: APTT 32.2 Sec (23.4-35.0)
[2025-10-11] MEDS: RETACRIT 10000 UNITS IV (08:49)
[2025-10-11] MEDS: FLEXBUMIN 25% FOR HEMODIALYSIS 12.5 GRAMS IV ×2 (08:50→10:18)
[2025-10-11 08:59] LABS: Hematocrit 20.4 % (39.0-52.0); Hemoglobin 6.8 g/dL (13.0-18.0); Mean Corp Hgb Conc. 33.3 g/dL (33.0-37.0); Mean Corpuscular Volume 92.7 fL (80.0-94.0); Platelet Count 236 10^3/uL (130-400); Red Cell Dist. Width 21.1 % (11.5-14.5)
[2025-10-11 09:04] LABS: Ferritin 794.0 ng/ml (17.9-464.0)
--- NOTE | 2025-10-11 10:22 | W.PN.NEPH.HD ---
Assessment
-
pt seen during HD
vitals stable
UF as tolerated
AVG functions well
cont trasnfusion prn for anemia per primary
Progress Note - Hemodialysis
-
Date of Service: October 11, 2025
Duration: 30 minutes and 3 hours
Potassium Bath: 3
Calcium Bath: 2.5
Opti-Dialyzer: 160
Ultrafiltration: Other (1.5-2)
Blood Flow: 400
Dialysate Flow: 600
Heparin: no
EPO: [id number]
--- NOTE | 2025-10-11 11:57 | W.PN.HOSP.TC ---
Addendum entered and electronically signed by Sulaiman Solorzano MD 10/11/25 15:40:
Paperwork for transfer completed.
Original Note:
Today's Communication/Plan
-
Blood transfusion today. HD. Plan to initiate heparin drip. Probable transfer to tertiary care center.
Assessment / Plan
Assessment / Plan
Physical exam:
General: Acutely ill
HEENT: Normocephalic, Atraumatic and Moist Mucous Membranes
Respiratory: Decreased breath sounds bilateral; Negative Wheezes, Rales or Rhonchi
Cardiac: Irregular rate and rhythm and S1/S2
GI: Soft, Nontender and Nondistended
Musculoskeletal: No Clubbing, No Cyanosis. Bilateral lower extremity edema
Neuro: Lethargic, no neurological deficits
Psych: Calm
A/P:
Acute GI bleed:
Concerns for recurrent bleeding
Patient with melena and drop of hemoglobin unsure if residual bleed or active rebleeding. Blood pressure on the lower side but not requiring pressors.
Proceed with blood transfusion
Push enteroscopy yesterday with polyp and active site of bleeding difficult to control bleed.
Discussed with GI today who recommends transfer to tertiary care center
Discussed with Steve and talked to hospitalist Dr. Campbell, and GI Dr. Rik Gonzalez (initially talked to other hospitalist and GI from another facility from [place]). After further discussion, patient has been accepted for transfer pending bed
availability.
Prior to today:
Continue PPI IV twice daily
Continue monitor
Status post small bowel enteroscopy today and Endo Clip was found gastric body, 2 small semisessile polyps no bleeding, and a 10 mm semisessile polyp with bleeding status post biopsy and APC of the lesion. Status post biopsy with a cold forceps the
lesion as well. This area was marked by tattoo.
Patient noticed to be high risk of bleed by GI.
Started on clear liquid diet today
If ongoing bleeding we will need to refer to tertiary care for balloon enteroscopy
Discussed with GI when to restart anticoagulation given his history of mechanical valve--> challenging situation given his high risk of bleeding so for now no anticoagulation today but hopefully will restart tomorrow with heparin drip. His INR
today is 2.25 but the goal is 2.5-3.5.
For unclear reason patient was not transferred to IMU yesterday so for now we will continue to monitor on the floor and low threshold to transfer if decompensates.
Acute blood loss anemia and underlying anemia of chronic disease:
Hemoglobin 6.9 and repeated again and is 6.9
Ordered 1 unit of blood transfusion today
Monitor hemoglobin posttransfusion
Prior to today:
Status post blood transfusion
Later hemoglobin 7.1
Continue to monitor hemoglobin
Procrit as needed
End-stage renal disease on hemodialysis:
Undergoing hemodialysis today
Prior to today:
Hemodialysis per nephro
Mechanical mitral valve replacement:
Planning to start heparin drip as soon as later today but if transfer will happen soon we will hold off for now until logistics of transfer and can initiate upon receiving facility and for now we will do blood transfusion and repeat hemoglobin
posttransfusion.
INR 1.61
Goal INR 2.5-3.5
Prior to today:
Will need to start heparin tomorrow. Discussed with GI when to restart anticoagulation given his history of mechanical valve--> challenging situation given his high risk of bleeding so for now no anticoagulation today but hopefully will restart
tomorrow with heparin drip. His INR today is 2.25 but the goal is 2.5-3.5.
At very high risk of thromboembolic disease
Permanent A-fib:
Continue rate control, digoxin 62.5 mcg p.o. daily
As above-->Will need to start heparin tomorrow. Discussed with GI when to restart anticoagulation given his history of mechanical valve--> challenging situation given his high risk of bleeding so for now no anticoagulation today but hopefully will
restart tomorrow with heparin drip. His INR today is 2.25 but the goal is 2.5-3.5.
Acute on chronic HFrEF:
Monitor volume status with hemodialysis
Continue GDMT as able
Orthostatic hypotension:
Continue midodrine and fludrocortisone
Chronic hypoxic respiratory failure:
Continue home oxygen
Hypothyroidism:
Continue thyroid
Seizure disorder:
Continue AED, Lamictal
Former smoker (not formally diagnosed with COPD):
On bronchodilators scheduled
On budesonide inhalers twice a day
Other medical problems:
History of CVA
History of nonischemic cardiomyopathy
History of ICD explant due to infection back in 2005
History obstructive sleep apnea
DVT prophylaxis:
SCDs
Will start heparin and warfarin when risk of bleeding subsides
CODE STATUS:
Full code
Prognosis guarded and at a high risk of clinical decompensation from GI, renal, hematological, respiratory, cardiac standpoint.
Total Critical Care Time__40___ minutes. I was immediately available to the patient and staff. I personally examined, reviewed labs, diagnostic images/reports, interpretations, treatment plans, discussed patient care with other providers and
family or caregivers (if patient is unable to make decisions), entered orders as appropriate and documented the medical record.
Anticipated Discharge: > 48 hours
Subjective/Interval History
-
Date of Service: October 11, 2025
Patient had dark and tarry stool last evening and again had an episode of dark stool this morning around 5 AM. Patient feels tired overall.
Objective Data
-
Labs:
Laboratory Results
10/11/25 10/11/25 10/11/25
04:19 04:54 07:32
WBC 9.2
Hgb 6.8 L*
Hct 20.4 L*
Plt Count 236
PT Cancelled 18.9 H
INR Cancelled 1.61
APTT
Sodium 130 L
Potassium 3.6
Chloride 94 L
Carbon Dioxide 26
10/11/25 10/11/25
08:20 13:00
WBC
Hgb Pending
Hct Pending
Plt Count
PT
INR
APTT 32.2
Sodium
Potassium
Chloride
Carbon Dioxide
Vital Signs:
Vital Signs
Temp Pulse Resp BP Pulse Ox
97.9 F 94 18 95/29 98
10/11/25 11:23 10/11/25 11:27 10/11/25 11:27 10/11/25 11:23 10/11/25 11:27
I&O
10/10/25 10/11/25 10/12/25
06:59 06:59 06:59
Intake Total 730 / 730 960 / 960
Output Total 100 / 100 0 / 0
Balance 630 / 630 960 / 960
[2025-10-11] MEDS: NSS (PRESERVATIVE FREE) 10 ML IV ×2 (12:28→19:53)
[2025-10-11] MEDS: PROTONIX IV 40 MG IV ×2 (12:28→19:52)
[2025-10-11] MEDS: FLORINEF 0.1 MG PO (12:30)
[2025-10-11] MEDS: LAMICTAL 200 MG PO ×2 (12:30→19:51)
[2025-10-11] MEDS: LANOXIN 62.5 MCG PO (12:46)
[2025-10-11 13:31] LABS: Hematocrit 21.0 % (39.0-52.0); Hemoglobin 6.9 g/dL (13.0-18.0)
--- NOTE | 2025-10-11 15:39 | W.DCSUMMARY ---
Discharge Summary
Discharge Data
Date of Admission: 10/09/25
Date of Discharge: 10/11/25
Total time spent discharging patient (in min): 35
-
Pending Results: No
Hospital Course
Patient 50 years old male with multiple comorbidities some of which include atrial fibrillation, hypertension, CHF, hypothyroidism, end-stage renal disease on hemodialysis, depression, JOVITA, chronic hypoxic respiratory failure on home oxygen, mitral
valve endocarditis in the past, anemia of chronic disease, obesity, mechanical mitral valve replacement, came into the hospital with recurrent anemia and dark stools for 3 days prior to his presentation associated with fatigue. His hemoglobin upon
presentation was 5.4. GI was consulted. He was started on PPI. GI suspect bleeding was from small bowel so he underwent push enteroscopy on 10/10. Enteroscopy showed normal esophagus, normal stomach, and Endo Clip was found in the stomach, 2
duodenal polyps and a 10 mm jejunal polyp with bleeding status post APC and clip was placed for location marking and due to the difficult location unsure if bleeding would stop completely during the procedure. Patient continued to have dark stools
and hemoglobin dropped despite blood transfusions. He also needed to be started on heparin drip due to his mechanical valve and atrial fibrillation history. Patient has remained hemodynamically stable although soft blood pressures due to
hemodialysis. Renal has continue with hemodialysis during this hospital stay. His latest hemoglobin is 7.6 after blood transfusion. GI recommended transfer to tertiary care center for possible balloon enteroscopy. We discussed with hospitalist
(Dr. Campbell accepting physician) and GI (Dr. Gonzalez) at [place] and they graciously accepted him in transfer for today.
Discharge duration: 35 minutes
Discharge Plan
-
Patient Disposition: Acute Care Hospital
Discharge Orders:
Discharge Patient (As Directed); Ordered 10/11/25
Ordered By: Rafat Hernandez
Discharge Date and Time
Discharge Date/Time: 10/11/25 23:00
Print Language: SLOVENIAN
[2025-10-11 16:33] LABS: APTT 32.3 Sec (23.4-35.0)
[2025-10-11 16:46] LABS: Hematocrit 21.5 % (39.0-52.0); Hemoglobin 7.0 g/dL (13.0-18.0); Mean Corp Hgb Conc. 32.6 g/dL (33.0-37.0); Mean Corpuscular Volume 98.6 fL (80.0-94.0); Platelet Count 225 10^3/uL (130-400); Red Cell Dist. Width 21.2 % (11.5-14.5)
[2025-10-11] MEDS: HEPARIN 25000 UNITS/250 ML IV (17:00)
[2025-10-11] MEDS: HEPARIN 4000 UNITS IV (17:03)
--- NOTE | 2025-10-11 17:49 | W.PN.GI.CBS2 ---
Today's Communication / Plan
-
Transfusion today
More IV access
Watch stool output
Case d/w GI at [facility] and awaiting bed
GI will follow peripherally please call for?
Assessment / Plan
-
Pt is a 50yo with hx mechanical MVR, afib, on coumadin, AICD with removal, chronic hypoxemic respiratory failure, HFrEF , CVA, ESRD on hemodialysis with AV fistula with prior bleeding around fistula, hypothyroidism, hyperlipidemia, and GI
bleeding in August 2025. In review of record pt was admitted in August with elevated INR 7.6 with bleeding from fistula but also bloody stools. He completed work up as noted with melanosis, TA polyps, hemorrhoids, multiple gastric polyps -
fundic gland, clip placed with oozing ans site portal HTN gastropathy, non bleeding duodenal ectasia. He did proceed for capsule but unfortunately capsule not retrieved and follow up X ray not found. He now returns with recurrent anemia and
reports black stools for 3 days and fatigue over last week.
He otherwise admits to nausea and looser dark stools, but denies odynophagia, dysphagia, GERD, vomiting, constipation or red blood in stools. On admission hbg 5.4 qwith last 7.6 on 08/17/25.
08/12/2025- colonoscopy -- protano-- -difficulty due to looping with need for pressure - Melanosis in the colon- One 2 mm polyp in the ascending colon, removed with a jumbo cold forceps. Resected and retrieved. One 8 mm polyp in the transverse
colon, removed with a cold snare. Resected and retrieved. Two 10 to 18 mm polyps in the transverse colon, removed with a hot snare. Resected and retrieved. Hemorrhoids. bx TA all polyps
08/08/25- EGD mekapati - Normal esophagus. no esophageal varices seen- Multiple gastric polyps. Biopsied. Clip was placed to stop oozing at biopsy site. 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 Portal hypertensive gastropathy. no gastric varices
seen. One non-bleeding angioectasia in the duodenum. bx fundic gland polyp
08/27/25-- capsule not retrieved not seen on follow up X ray
Impression
-recurrent anemia with dark stool prior to admission
-hx admission on August with GI bleeding with prior work up
-History of mitral valve replacement- on warfarin
-Atrial fibrillation
other med problems
AICD with removal, chronic hypoxemic respiratory failure, HFrEF , CVA, ESRD on hemodialysis with AV fistula with prior bleeding around fistula, hypothyroidism, hyperlipidemia
Recommendation
-Continues to have melena/drop in Hbg despite enteroscopy with APC and clip of jejunal bleeding polyps 10/10
-Serial H/H
-Agree with transfusion
-C/w PPI IV BID
-Case d/w Dr Gonzalez at [facility] [facility], Accepted for double balloon enteroscopy
-Patient is high risk given MVR and resumption of heparin gtt cautiously
-C/w CLD
Awaiting bed at [facility] [facility]. Care coordinated with Dr Gonzalez GI at [facility]
GI will follow peripherally please call with ?
Total Time Spent with Patient (in minutes): 48 mins with patient and coordination of care with GI Dr Torres at [facility]
Subjective
Subjective
Date of Service: October 11, 2025
Despite enteroscopy with APC and clip of bleeding jejunal polyps patient today continued melena and Hbg drop. He is tolerating CLD and hungry for more food
Objective
Data Reviewed
Laboratory Data:
Laboratory Results
10/11/25 07:32
Laboratory Results
PT 18.9 Sec (11.4-14.6) H 10/11/25 04:54
INR 1.61 10/11/25 04:54
APTT 32.3 Sec (23.4-35.0) 10/11/25 16:16
Phosphorus 2.5 mg/dl (2.5-4.5) 10/09/25 05:32
Magnesium 2.2 mg/dl (1.6-2.3) 10/09/25 05:32
Total Bilirubin 0.7 mg/dl (0.2-1.3) 10/08/25 20:25
AST 33 U/L (17-59) 10/08/25 20:25
ALT 29 U/L (0-50) 10/08/25 20:25
Alkaline Phosphatase 122 U/L (38-126) 10/08/25 20:25
Vital Signs and I&O:
Vital Signs
Temp Pulse Resp BP Pulse Ox
98.7 F 104 18 105/62 98
10/11/25 16:28 10/11/25 16:28 10/11/25 16:28 10/11/25 16:28 10/11/25 15:39
I&O
10/10/25 10/11/25 10/12/25
06:59 06:59 06:59
Intake Total 730 / 730 960 / 960 0 / 0
Output Total 100 / 100 0 / 0
Balance 630 / 630 960 / 960 0 / 0
Physical Exam
Physical Exam
GEN: No acute distress, conversant, pleasant
HEENT: anicteric, extraocular movements intact, clear oropharynx without exudates
GI: soft, obese non-distended, not tender to palpation, normal active bowel sounds, no hepatosplenomegaly
EXT: trace edema bilaterally legs not well perfused
NEURO: AAOx3, non-focal
[2025-10-11] MEDS: FLUSH (NSS) 1 FLUSH IV (20:06)
[2025-10-11 22:42] LABS: Hematocrit 23.1 % (39.0-52.0); Hemoglobin 7.6 g/dL (13.0-18.0)
[2025-10-11 22:52] LABS: APTT 74.8 Sec (23.4-35.0)
[2025-10-12] MEDS: DESYREL 150 MG PO
--- NOTE | 2025-10-12 00:10 | PTCARENOTE ---
Gave R.N. report on pt., going to [facility], unit [address] room [id number], pt. being picked up by transport now.
[2025-10-12] MEDS: DUONEB INH (07:43)
[2025-10-12] MEDS: PULMICORT INH (07:43)
== END 2025-10-11 23:00 | disposition short-term general hospital (02) | DRG 377 ==
LOC: 4 WEST ACU 01:31
PROVIDERS: Emergency Medicine; Internal Medicine; Nurse Practitioner Adult Health; ADMITTING PHYSICIAN Hospitalist; ATTENDING PHYSICIAN Hospitalist; CONSULT PHYSICIAN Internal Medicine Gastroenterology; EMERGENCY PHYSICIAN Emergency Medicine; FAMILY PHYSICIAN Internal Medicine; OTHER PHYSICIAN Specialist
PROC: 30233N1 Transfusion of Nonautologous Red Blood Cells into Peripheral Vein, Percutaneous Approach (ICD-10-PCS; 2025-10-08)
PROC: 5A1D70Z Performance of Urinary Filtration, Intermittent, Less than 6 Hours Per Day (ICD-10-PCS; 2025-10-09)
PROC: 0D5A8ZZ Destruction of Jejunum, Via Natural or Artificial Opening Endoscopic (ICD-10-PCS; 2025-10-10)
PROC: 0DBA8ZX Excision of Jejunum, Via Natural or Artificial Opening Endoscopic, Diagnostic (ICD-10-PCS; 2025-10-10)
DX: K92.2 Gastrointestinal hemorrhage, unspecified (principal); I50.23 Acute on chronic systolic (congestive) heart failure; N18.6 End stage renal disease; I13.2 Hypertensive heart and chronic kidney disease with heart failure and with stage 5 chronic kidney disease, or end stage renal disease; I48.21 Permanent atrial fibrillation; D62 Acute posthemorrhagic anemia; K76.6 Portal hypertension; E87.1 Hypo-osmolality and hyponatremia; D68.32 Hemorrhagic disorder due to extrinsic circulating anticoagulants; J96.11 Chronic respiratory failure with hypoxia; E11.22 Type 2 diabetes mellitus with diabetic chronic kidney disease; E78.00 Pure hypercholesterolemia, unspecified; J45.909 Unspecified asthma, uncomplicated; G47.33 Obstructive sleep apnea (adult) (pediatric); F32.A Depression, unspecified; D63.1 Anemia in chronic kidney disease; E03.9 Hypothyroidism, unspecified; G40.909 Epilepsy, unspecified, not intractable, without status epilepticus; K31.89 Other diseases of stomach and duodenum; K64.9 Unspecified hemorrhoids; F17.200 Nicotine dependence, unspecified, uncomplicated; I95.1 Orthostatic hypotension; E83.39 Other disorders of phosphorus metabolism; K31.7 Polyp of stomach and duodenum; E66.01 Morbid (severe) obesity due to excess calories; I07.1 Rheumatic tricuspid insufficiency; I27.20 Pulmonary hypertension, unspecified; I25.2 Old myocardial infarction; Z60.2 Problems related to living alone; Z68.31 Body mass index [BMI] 31.0-31.9, adult; Z99.2 Dependence on renal dialysis; Z95.2 Presence of prosthetic heart valve; Z82.3 Family history of stroke; Z84.19 Family history of other disorders of kidney and ureter; Z88.8 Allergy status to other drugs, medicaments and biological substances; Z88.1 Allergy status to other antibiotic agents; Z88.0 Allergy status to penicillin; Z91.014 Allergy to mammalian meats; Z91.013 Allergy to seafood; Z79.890 Hormone replacement therapy; Z79.899 Other long term (current) drug therapy; Z79.01 Long term (current) use of anticoagulants; Z79.52 Long term (current) use of systemic steroids; Z86.0100 Personal history of colon polyps, unspecified; Z86.73 Personal history of transient ischemic attack (TIA), and cerebral infarction without residual deficits; Z99.81 Dependence on supplemental oxygen
CPT/HCPCS: 36430; 71046; 80048; 80051; 80053; 82728; 83540; 83550; 83735; 84100; 85014; 85018; 85025; 85027; 85610; 85730; 86850; 86900; 86901; 86920; 87070; 88305; 93005; 94640; 96365; 96366; 99285; G0257; P9016; P9047; Q5106

== ENCOUNTER 2025-10-31 02:30 | Inpatient (IN) | payer MEDICARE, OTHER, SELFPAY ==
[2025-10-30 23:44] VITALS: BP 77/36
[2025-10-31] VITALS (23 sets, daily range): BP systolic 62–115; BP diastolic 32–74; BMI 28.8; BMI 29.1
[2025-10-31 00:26] LABS: INR 3.45; PT 34.2 Sec (11.4-14.6)
[2025-10-31 00:27] LABS: APTT 45.7 Sec (23.4-35.0)
[2025-10-31] MEDS: NSS 500 IV ×2 (00:28→01:32)
[2025-10-31] MEDS: DILAUDID 0.5 MG IV (00:28)
[2025-10-31 00:35] LABS: Hematocrit 32.2 % (39.0-52.0); Hemoglobin 10.6 g/dL (13.0-18.0); Mean Corp Hgb Conc. 32.9 g/dL (33.0-37.0); Mean Corpuscular Volume 89.4 fL (80.0-94.0); Platelet Count 261 10^3/uL (130-400); Red Cell Dist. Width 17.2 % (11.5-14.5)
[2025-10-31 00:39] LABS: ALT (SGPT) 18 U/L (0-50); AST (SGOT) 41 U/L (17-59); Albumin 3.8 g/dl (3.5-5.0); Alkaline Phosphatase 96 U/L (38-126); Blood Urea Nitrogen 39 mg/dl (9-20); Calcium 7.7 mg/dl (8.4-10.2); Carbon Dioxide 25 mmol/L (22-30); Chloride 98 mmol/L (98-107); Glucose 120 mg/dl (70-99); Lipase 16 U/L (23-300); Potassium 3.6 mmol/L (3.5-5.1); Sodium 137 mmol/L (135-145); Total Protein 7.4 g/dl (6.3-8.2); eGFR 8.62
--- NOTE | 2025-10-31 01:04 | ED.GENMED ---
History of Present Illness
General
Chief Complaint: Abdominal Pain
Source: patient, ambulance crew, [facility] and previous hospital records
Exam Limitations: none
Time Seen by Provider: 10/30/25 23:57
Nursing documentation reviewed up to this point in time: agreed with
History of Present Illness
History of Present Illness:
HISTORY OF PRESENT ILLNESS
The patient is a 50-year-old male with complex past medical history including mechanical MVR, A-fib, on Coumadin, AICD with removal, chronic hypoxemic respiratory failure�O2 dependent, heart failure with reduced EF, CVA, end-stage renal disease on
hemodialysis with AV fistula as well as a history of gastrointestinal bleeding August of this year and then again, earlier in October when he presented with maroon or black stools and required a blood transfusion due to decreasing blood counts.
He underwent enteroscopy October 10 with APC and clip of jejunal bleeding polyps. Due to continued melanotic stools and drop in hemoglobin, he was transferred to [facility] to undergo double-balloon enteroscopy where apparently
source of bleeding was found and treated. He stayed there for about two weeks and did not require additional blood transfusions.
He was [facility] back to local [facility] ago and reports onset of generalized abdominal pain that began 3 days ago, persistent, worsening. He states he is generally prescribed tramadol for pain but this was discontinued versus not
restarted since return to the [facility] days ago.
Following discharge from the specialized facility, the patient reports a constant abdominal pain that began even before his discharge. He describes the pain as all over the abdomen and denies any previous experience of such pain until three days
ago. His bowel movements have been normal with no additional black or maroon stools. However, he has experienced significant nausea and vomiting of clear fluid, food substances he denies hematemesis nor coffee ground emesis. The abdominal pain does
not worsen with eating or drinking.
The patient describes his abdomen as significantly distended and notes low blood pressure, which has been lower than his baseline despite being on Midodrine for some time. He also mentions feeling short of breath and reports being on oxygen therapy.
His appetite has been normal, although he experiences fatigue.
The patient is scheduled for dialysis on Tuesday, Tuesday, and Tuesday but missed a recent session and seems to now be on a revised Uzllexc-Xpkmbczd-Ieoxvv dialysis schedule. He is also on Digoxin and Coumadin.
Past History
Past History
ED Past Medical History: Arrthythmia (Atrial fibrillation), Asthma, HTN, Hypercholesterolemia, NIDDM, [place], Renal failure (End stage.), Valvular disease, Hypothyroidism and Other (Acute and chronic respiratory failure, sepsis, endocarditis, mitral
valve, depressive episodes, anemia, morbid obesity, pulmonary hypertension, Pulmonary edema, Colitis, GI bleeding. Dialysis, Ulcers)
ED Past Surgical History: Cardiac (Heart valve prosthesis) and Other
Social History
Tobacco: Former smoker
Alcohol: Occasional
Drug: None
Personal:
Living: [facility] ( [employer])
Employment: Not employed
Family History
Family History: Hypertension
Phy Exam
Physical Exam
Physical Exam:
GENERAL: 50-year-old gentleman appears older than stated age, appears significantly chronically debilitated, bedbound. He is quite alert, easily communicative and overall in no acute distress.
EYE: pupils equal and reactive. anicteric
NECK: Supple, nontender, no meningismus, no significant adenopathy.
ENT: posterior pharynx is clear, oral mucosa is significantly dry. TM clear b/l, nares patent.
CARDIAC: Regular rate and rhythm. no murmur.
LUNGS: Clear breath sounds bilaterally, no acute respiratory distress, no wheezes/rales/rhonchi
ABDOMEN: Rotund and distended with exquisite generalized tenderness with a light palpation, no palpable masses, no rigidity, moderate guarding, no rebound. Hypoactive bowel sounds.
NEUROLOGICAL: Alert and oriented x3, motor strength 5/5 bilateral upper extremities, 3/5 bilateral lower extremities.
SKIN: Warm and dry, normal color, skin intact. No rash.
MUSCULOSKELETAL: Trace edema bilateral lower extremities, peripheral pulses are full and equal b/l. No palpable tenderness. AV graft left forearm positive thrill, positive bruit.
PSYCH: Normal and appropriate interaction.
Course
Orders/Labs/Results
Orders:
Orders
10/30/25 23:41
Type+Screen Urgent
Electrocardiogram (*1) Urgent
Reason for Study: Other
Other Reason for Exam: Possible Sepsis
EKG- Treatment ONCE
Complete Blood Count/With Diff Urgent
Comprehensive Metabolic Panel Urgent
10/31/25 00:06
Lactic Acid Urgent
Lipase Urgent
Manual Differential Urgent
Protime/PTT Urgent
10/31/25 00:18
0.9% Sodium Chloride 500 ml [Nss] 500 ml IV BOLUS
HYDROmorphone [Dilaudid] 0.5 mg IV NOW STA
10/31/25 00:21
CT Abd/pelvis W Iv Cont Urgent
Comment:
Reason For Exam: generalized severe abd pain, hypotension
10/31/25 00:22
HYDROmorphone [Dilaudid] 0.5 mg .ROUTE .STK-MED ONE
10/31/25 01:06
0.9% Sodium Chloride 500 ml [Nss] 500 ml IV BOLUS
10/31/25 01:31
Cefepime HCl [Maxipime] 2,000 mg IV NOW STA
10/31/25 01:45
MetroNIDAZOLE 500 MG/100 ML [Flagyl 500 mg] 100 ml IV NOW
10/31/25 01:54
Sterile Water [Sterile Water For Injection] 10 ml .ROUTE .STK-MED ONE
10/31/25 02:06
Phytonadione [Aquamephyton] 2 mg 0.9% Sodium Chloride 50 ml [Nss] 50 ml IV NOW
10/31/25 02:18
Prothrombin Complex(Pcc),Human [Kcentra] 2,143 unit Empty Viaflex Container 100 ml [Viaflex Empty Container] 80 ml IV NOW
Does patient have a dx of serious acute active bleeding?: No
Does patient have prior history of HIT?: No
Urgent surgery/invasive procedure planned in next 6 hours?: Yes
10/31/25 02:19
Admit/Transfer Patient As Directed
Co-Sign Provider:
Level of Care: Inpatient admission
Assign to:: ICU
Physician / Group: Roger
Diagnosis: small bowel obstruction with bowel ischemia
Reason for Hospitalization: small bowel obstruction with bowel ischemia
Expected length of stay greater than two midnights?: Yes
ELOS- Estimated Length of Stay in days: 2
I certify the patient meets the requirements for IP care: Yes
Phytonadione [Aquamephyton] 5 mg 0.9% Sodium Chloride 50 ml [Nss] 50 ml IV NOW
10/31/25 02:20
PRN Pain Medication Management As Directed
May give lesser potent ordered pain med per pt: Yes
preference::
Protocol:: Medication orders for pain may be administered in a
manner that supports deferring to patient preference
when the pt is:
- Requesting an ordered lesser potent pain medication.
Least to most potent pain medications are defined
as: acetaminophen < NSAID < tramadol < opioids
(morphine, oxycodone, hydromorphone).
- Requesting a lesser dose of the same medication IF
ORDERED.
- Requesting a less intrusive route of administration
if both routes are prescribed by the provider (PO <
IV).
10/31/25 02:21
Code Status As Directed
Resuscitation Status: Full Code
10/31/25 02:28
Blood Bank Products [* Blood Bank Products] Stat
Blood Bank Products: *Packed RBC Leuko (PRBC's
Quantity: 2
Transfuse Today: Hold for OR
Reason: Coagulopathy
10/31/25 05:56
Acetaminophen [Tylenol/Feverall] 650 mg RECTAL Q4HPRN PRN
Acetaminophen [Tylenol] 650 mg PO Q4HPRN PRN
Albuterol Nebs [Ventolin Nebules] 2.5 mg INH R Q4HPRN PRN
Bisacodyl [Dulcolax] 10 mg RECTAL [id number] PRN
Budesonide [Pulmicort] 0.25 mg INH BID PRN dyspnea/wheeze
Docusate W/Senna [Senokot-S] 1 tablet PO BIDPRN PRN
HYDROmorphone [Dilaudid] 0.5 mg IV Q4HPRN PRN
Lactated Ringers [Lr] 1,000 ml IV 40 mls/hr
NORepinephrine 4 MG/250 ML [Levophed] 4 mg in 250 ml IV PER PROTOCOL
Initial dose in mcg/min, then titrate:: 2
Titrate to keep:: MAP > 65 mmHg
Titrate by mcg/min:: 1-2 mcg/min
Frequency of titrations (minutes):: 5
Maximum dose in ICU in mcg/min:: 30
Maximum dose in IMU in mcg/min:: 8
Maximum dose in IVU in mcg/min:: 4
Begin to taper infusion when:: Remained at goal for 4hrs
Taper by mcg/min:: 1-2 mcg/min
Frequency of taper (minutes) if patient maintains goal:: 30
Taper to off?: Yes
If infusion off & no longer maintaining goal:: Contact Provider
Ondansetron Injectable [Zofran] 4 mg IV Q6HPRN PRN
Polyethylene Glycol Powder [Miralax] 17 grams PO DAILYPRN PRN
10/31/25 05:56
Consult Notification Routine
Specialty to Notify: [employer]
Consult Notification Routine
Specialty to Notify: Nephrology
[employer] Consult Routine
Consulting Provider: Glen Saxena
Was physician already notified: No
Reason for consult: Small bowel ischemia, post op management
NEPHROLOGY CONSULT Routine
Consulting Provider: Ange Vann
Was physician already notified: No
Reason for consult: ESRD HD M/W/F, here with ischemic bowel going to OR this am. Labs ok
SURGICAL CONSULT Routine
Consulting Provider: Serge Denney
Was physician already notified: Yes
Activity As Directed
Activity Level: With Assistance
Pneumatic Compression Sleeves As Directed
Type: Knee high
Vital Signs As Directed
Frequency: Per unit guidelines
Oxygen Therapy [O2 Therapy] [RESP] Routine
Nasal Cannula Liter Flow: 3 LPM
Titrate/Wean O2 to maintain O2 sat greater than (%): 93
Pulse Ox/cont/shift [RESP] Routine
Quantity: 1
DX Deep Vein Thrombosis Video Routine
10/31/25 Breakfast
NPO
Allow oral meds: No
Allow clear liquids: No
Basic Metabolic Panel IN AM
Complete Blood Count/No Diff IN AM
LFT [Cixlr-Dycn-Kdjzski] IN AM
Lactic Acid Q4H
Comment: ON ICE, CANCEL 2ND ORDER IF FIRST LACTIC ACID LEVEL <2
Magnesium IN AM
PTT IN AM
Prothrombin Time IN AM
10/31/25 08:00
Fludrocortisone Acetate [Florinef] 0.1 mg PO DAILY
Octreotide [Sandostatin] 100 mcg SC Q12H
10/31/25 11:00
MetroNIDAZOLE 500 MG/100 ML [Flagyl 500 mg] 100 ml IV Q8H
10/31/25 12:00
Digoxin [Lanoxin] 62.5 mcg PO NOON
11/01/25 03:00
Cefepime HCl [Maxipime] 1,000 mg IV Q24H
Abnormal Lab Results
10/31/25
00:06
WBC 22.4 H 10^3/uL
(4.8-10.8)
RBC 3.60 L 10^6/uL
(4.70-6.10)
Hgb 10.6 L g/dL
(13.0-18.0)
Hct 32.2 L %
(39.0-52.0)
MCHC 32.9 L g/dL
(33.0-37.0)
RDW 17.2 H %
(11.5-14.5)
Abs Neuts (Manual) 19.2 H 10^3/uL
(1.4-6.5)
Segmented Neutrophils 39 L %
(42-75)
Band Neutrophils 47 H %
(0-3)
Lymphocytes (Manual) 2 L %
(20-51)
PT 34.2 H Sec
(11.4-14.6)
APTT 45.7 H Sec
(23.4-35.0)
BUN 39 H mg/dl
(9-20)
Creatinine 7.1 H* mg/dL
(0.7-1.3)
Glucose 120 H mg/dl
(70-99)
Lactic Acid 2.8 H mmol/L
(0.7-2.0)
Calcium 7.7 L mg/dl
(8.4-10.2)
Total Bilirubin 2.4 H mg/dl
(0.2-1.3)
Lipase 16 L U/L
(23-300)
Crossmatch IS Only See Detail
10/31/25 00:06
10/31/25 00:06
Vital Signs
Initial and Last Documented VS:
Initial Vital Signs
Temp Pulse Resp BP Pulse Ox
97.9 F 83 30 77/36 97
10/30/25 23:44 10/30/25 23:44 10/30/25 23:44 10/30/25 23:44 10/30/25 23:44
Last Documented Vital Signs
Temp Pulse Resp BP Pulse Ox
98.6 F 78 22 90/50 99
10/31/25 02:56 10/31/25 03:00 10/31/25 02:30 10/31/25 03:00 10/31/25 06:27
MDM/Problems Addressed
Differential Diagnosis Includes:
DIFFERENTIAL DIAGNOSIS
The Differential Diagnosis includes, in no particular order and is not limited to:
- Recurrent GI bleed
- Small bowel obstruction
- Mesenteric ischemia
- Abdominal aortic aneurysm
- Peptic ulcer disease
- Gallbladder disease
- Pancreatitis
- Renal insufficiency complications
- Electrolyte imbalance
- Medication side effects
MDM/Problems Addressed:
Acute/progressive abdominal pain over the past 3 days.
History of recurrent upper GI bleeds August and again October of this year.
Noted to be moderately hypotensive and although history of hypotension, maintained on midodrine, blood pressure generally runs in the 90s to low 100s.
Multiple, complex medical issues.
Clinically appears dry. He is afebrile. No respiratory distress.
Will initiate IV fluid bolus, 500 mL and give a small IV dose of Dilaudid for pain.
Will check labs including lactic acid and plan for CT abdomen pelvis with IV contrast.
Although there is a mention of shellfish allergy patient has received IV contrast in the past without adverse effects and without requiring premedication.
Chronic conditions affecting care: HTN, CAD, Cardiomyopathy, Arrhythmia, Neurological disorder and Kidney disease
*Radiology
Radiology exam reviewed: radiology read reviewed
*Pulse Oximetry
SaO2: 97
Nasal Cannula flow liters per minute: 4
Patient hypoxic: yes
*EKG
Interpreted by ED Provider?: Yes
Interpretation: abnormal
Comparison EKG: no changes (Unchanged from previous October 08, 2025)
Rate: normal
Rhythm: a-fib
Broadway: normal axis
Interval: normal interval
QRS Pattern: poor R-wave progression
Ischemia: non-specific ST changes
*[employer] Interpretation
Rate: normal
Interpretation: normal
Rhythm: a-fib
*Critical Care Note
Total Time (30-74mins, 75-104mins- exclusive of procedures): 60
comment:
Critical care statement: A total of 60 minutes of critical care time was provided for this patient. This includes management of unstable vital signs, evaluation of the patient at bedside, reviewing the patient's pertinent medical records, discussion
with consultants, review of old EKGs and review of pertinent medical records. This time with separate from time utilized to perform the aforementioned documented procedures
Update Note
Update Note:
CAT scan shows small bowel obstruction with small bowel pneumatosis, evidence of bowel ischemia.
Case discussed with general surgery.
Although patient is significant surgical risk, he is at significant risk for progression of bowel ischemia, sepsis and if surgery not attempted. I have had lengthy discussion with patient regarding his options and he opts for surgery.
BP has improved with IV fluid bolus.
He is much more comfortable after a small IV dose of Dilaudid.
Case discussed with general surgery as well as hospitalist.
ED Attending Note
-
Portions of this chart may have been created with voice recognition software.� Occasional wrong word or��sound alike� substitutions may have occurred due to the inherent limitations of voice recognition software.
Discharge Plan
Departure
Patient Disposition: Admit
Date of Disposition: 10/31/25
Time of Disposition: 01:45
Admit to: ICU
Admit to doctor: Giovani
Presentation/result/management discussed w/ accepting MD/DO: Hospitalist
Condition: Serious
Discharge Problem:
Small bowel obstruction, Ischemia, bowel
Interventions
Interventions:
*General Assessment Last Done: 10/30/25 23:44
*Neglect/Abuse Screening Last Done: 10/30/25 23:44
*ED COVID-19 Vaccine History Last Done: 10/30/25 23:44
*ED Influenza Vaccine History Last Done: 10/30/25 23:44
[facility] Fall Risk Assessment Tool Last Done: 10/30/25 23:53
*Risk Screen - Suicide (C-SSRS) Last Done: 10/30/25 23:44
*Nursing Disposition Last Done: 10/31/25 03:10
BP-Ggbvrf-Pupgpbjlzz Assessment Last Done: 10/31/25 01:59
Discharge Date and Time
Discharge Date/Time: 10/31/25 03:10
[2025-10-31 01:19] LABS: Absolute Neutrophils -Man Diff 19.2 10^3/uL (1.4-6.5); Anisocytosis 1+; Normal RBC Morphology No; Total Cells Counted 100; Toxic Granulation 1+
[2025-10-31 01:20] LABS: Platelets Checked Yes; Target Cells 2+
[2025-10-31 01:21] LABS: Tear Drop Red Blood Cells Occasional
[2025-10-31 01:23] LABS: Ovalocytes Occasional; Schistocytes Occasional
--- NOTE | 2025-10-31 01:35 | HPS.HSE ---
Addendum entered and electronically signed by David Duran MD 10/31/25 06:44:
Presented to status post exploratory laparotomy with 90cm frankly necrotic mid small bowel resected; 2 areas of patchy ischemia in proximal jejunum each encompassing ~50% circumference, this area exhibited signs of peristalsis and was left in situ.
He remains intubated. He is on 2 pressors.
Admitted to ICU
� Vent management as per ICU
� Keep n.p.o.
� Continue antibiotics
� Patient will be going back to the OR on November 01
� Received vitamin K and for factor PCC for reversal of anticoagulation with Coumadin (has a history of mechanical aortic valve replacement),holding anticoagulation for now, trend INR
� See HPI for rest of plan
Original Note:
Family Physician
-
Family Physician: NOT KNOW UNKNOWN - PT DOES
Chief Complaint
-
Abdominal pain
History of Present Illness
This is a 50-year-old male with past medical history significant for end-stage renal disease on hemodialysis Tuesday, aortic stenosis status post aortic valve replacement, chronic anticoagulation on Coumadin, chronic hypoxic
respiratory failure on 3 L home O2, JOVITA, CHF with reduced EF, chronic hypotension, type 2 diabetes, bedbound, history of GI bleed requiring enteroscopy and ultimately transferred for enteroscopy beyond the duodenum and ablation of bleeding lesion at
[place], now presents from [place] [facility] with abdominal pain and distention.
Patient is transferred from [facility] for complaint of 10 out of 10 abdominal pain, hypotensive on arrival. No note of any recent vomiting no diarrhea. He did have nausea. No note of fevers.
He last took his midodrine this evening prior to coming to the ED.
In the emergency department systolic blood pressures As low as 70 to 80s, currently blood pressure is 93/50 with a pulse of 79 and oxygen saturation of 98%.
White count was 22.4, improving 10.6 and plate count 261, with 47% bands, INR 3.6, lactate 2.8. His electrolytes were all within the normal range. BUN and creatinine consistent with ESRD and a glucose of 120.
He had a CT of the abdomen pelvis showing fluid-filled dilated small bowel loops measuring up to 3.1 cm with transition point in the right lower quadrant reflecting small bowel obstruction likely due to underlying adhesions, there is extensive small
bowel pneumatosis as well as mesenteric venous gas reflecting bowel ischemia. Scattered abdominal free fluid.
Medical History
Past Medical History
Past Medical History: Reports Other
Additional Past Medical History:
HFrEF
ESRD on HD
DM II
hyperlipidemia
atrial fibrillation
hypothyroidism
obstructive sleep apnea
GERD
Past Surgical History: Reports Other
Additional Past Surgical History:
mitral valve replacement
AV fistula
Social History
Tobacco: Non-smoker
Alcohol: Occasional
Drug: None
Living: Correction
Employment: Disabled
Family History
Family History: Not pertinent
Allergies / Home Medications
Allergies reflects when Allergies were last updated in [employer].
Home Medications with original date entered in [employer]
Allergy/Medication List:
Allergies
Allergy/AdvReac Type Severity Reaction Status Date / Time
dalteparin,porcine Allergy Unknown Verified 12/14/24 14:53
enoxaparin Allergy Unknown, Verified 12/14/24 14:53
[facility] record
isosorbide Allergy Unknown, Verified 12/14/24 14:53
[facility] record
meperidine Allergy Unknown, Verified 12/14/24 14:53
NH record
piperacillin sodium Allergy Itching; Verified 12/14/24 14:53
[From Zosyn] Tolerated
AMOXICILLIN
shellfish derived Allergy ALLERGY-FISH Verified 12/14/24 14:53
EXCEPT TUNA
tazobactam sodium Allergy Itching Verified 12/14/24 14:53
[From Zosyn]
Home Medications
gabapentin 300 mg capsule 300 mg PO HS Pain 03/11/15
polyethylene glycol 3350 17 gram oral powder packet 17 grams PO SUTUTHSA constipation 02/23/17
atorvastatin 20 mg tablet 20 mg PO HS High cholesterol 10/04/18
sevelamer carbonate 800 mg tablet 800 mg PO MEALS Kidney Disease 10/04/18
levothyroxine 300 mcg tablet 300 mcg PO DAILY Thyroid 01/16/20
pantoprazole 40 mg tablet,delayed release 40 mg PO DAILY Gastrointestinal issue 01/17/20
metoprolol succinate 25 mg tablet,extended release 24 hr 25 mg PO MOWEFR@2200 Blood Pressure 02/13/23
metoprolol succinate 25 mg tablet,extended release 24 hr 25 mg PO SUTUTHSA@0800,2000 Blood Pressure 02/13/23
acetaminophen 325 mg tablet 650 mg PO Q4HPRN PRN mild pain/temp>100F 10/14/23
budesonide 0.25 mg/2 mL suspension for nebulization 0.25 mg inhalation R [id number] PRN SOB/wheezing 10/14/23
midodrine 10 mg tablet 10 mg PO Q6 Hold SBP >/= 150 10/14/23
sennosides 8.6 mg tablet (senna) 8.6 mg PO HS Constipation 10/14/23
tramadol 50 mg tablet 50 mg PO Q6HPRN PRN moderate pain 10/14/23
albuterol sulfate 90 mcg/actuation aerosol inhaler 2 puff inhalation R Q4HPRN PRN asthma 09/07/24
cetirizine 10 mg tablet 10 mg PO DAILY Allergies 09/07/24
fluticasone furoate 200 mcg/actuation blister powder for inhalation (Arnuity Ellipta) 1 inh inhalation R DAILY Lung/Breathing Issues 09/07/24
lamotrigine 150 mg tablet (Lamictal) 150 mg PO BID Neurological Condition 09/07/24
melatonin 3 mg tablet 3 mg PO HS 09/07/24
bupropion HCl 150 mg tablet,12 hr sustained-release (Wellbutrin SR) 150 mg PO MOWEFR depression/anxiety 09/10/24
fludrocortisone 0.1 mg tablet 0.1 mg PO DAILY Blood pressure #30 tabs 09/14/24
benzonatate 100 mg capsule 100 mg PO Q8H PRN cough 12/14/24
bisacodyl 10 mg rectal suppository (Dulcolax (bisacodyl)) 10 mg SC DAILY PRN constipation 12/14/24
diphenhydramine HCl 25 mg tablet (Benadryl Allergy) 25 mg PO Q6H PRN allergies 12/14/24
enoxaparin 150 mg/mL subcutaneous syringe (Lovenox) 150 mg SC DAILY@1800 12/14/24
liothyronine 50 mcg tablet (Cytomel) 75 mcg PO DAILY 12/14/24
trazodone 150 mg tablet 150 mg PO HS 12/14/24
vitamin B complex and vitamin C no.20-folic acid 1 mg capsule 1 cap PO HS 12/14/24
Review of Systems
-
Constitutional: Reports No Symptoms
EENT: Reports No Symptoms
Respiratory: Reports No Symptoms
Cardiac: Reports No Symptoms
Abdomen/GI: Reports Abdominal Pain and Nausea
: Reports No Symptoms
Musculoskeletal: Reports No Symptoms
Skin: Reports No Symptoms
Neurological: Reports No Symptoms
Endocrine: Reports No Symptoms
Hematologic/Lymphatic: Reports No Symptoms
Psych: Reports No Symptoms
Physical Exam
Vital Signs
Vital Signs
Temp Pulse Resp BP Pulse Ox
97.9 F 79 23 93/51 98
10/30/25 23:44 10/31/25 01:30 10/31/25 01:30 10/31/25 01:30 10/31/25 01:30
Physical Exam
General: Well Developed, Well Nourished, No Apparent Distress, Comfortable, Conversant and Obese
HEENT: NormoCephalic, Moist mucous membranes, Atraumatic, [place] Conjunctivae, Nose Appears Normal, Ears Appear Normal and Oxygen
Respiratory: Clear, Non Labored Respirations and Decreased Breath Sounds
Cardiac: S1/S2 and Tachycardia; No Murmur, Rub or Gallop
Breast: Deferred by me
GI: Soft, Non Tender, Non Distended and Normal Bowel Sounds; No Organomegaly
Rectal: Deferred by Provider
Genito-urinary: Deferred by me
Musculoskeletal: No Clubbing, No Cyanosis and No Edema
Skin: Warm and Other (Left upper extremity AV fistula, no bleeding, good thrill and bruit.); No Rash
Neuro: Awake, Alert, AO x 3 and Nonfocal/grossly intact
Psych: Calm and Intact Judgment/Insight
Laboratory Results
-
10/31/25 00:06
10/31/25 00:06
Laboratory Results
PT 34.2 Sec (11.4-14.6) H 10/31/25 00:06
INR 3.45 10/31/25 00:06
APTT 45.7 Sec (23.4-35.0) H 10/31/25 00:06
Lactic Acid Cancelled 10/31/25 00:15
Total Bilirubin 2.4 mg/dl (0.2-1.3) H 10/31/25 00:06
AST 41 U/L (17-59) 10/31/25 00:06
ALT 18 U/L (0-50) 10/31/25 00:06
Alkaline Phosphatase 96 U/L (38-126) 10/31/25 00:06
Lipase 16 U/L (23-300) L 10/31/25 00:06
Data Reviewed
-
CT Scan: Report Reviewed by me
Lab Data: Labs Reviewed by me
Old Records: Reviewed
Impression/Plan
-
IMPRESSION:
Patient is a 50-year-old with past medical history significant for acidosis on hemodialysis Tuesday with last dialysis on Tuesday, CHF with reduced EF on digoxin, aortic stenosis status post mechanical aortic valve replacement,
severe tricuspid regurgitation, history of small intestinal GI bleed, obstructive sleep apnea, hypothyroidism, presents to the emergency department with 2 days of abdominal pain and nausea and is found to have a small bowel obstruction with
transition point in the right lower quadrant reflecting small bowel obstruction likely due to underlying adhesions (however patient denies any prior surgeries) and there is extensive small bowel pneumatosis as well as mesenteric venous gastric and
bowel ischemia. Likely the obstruction is secondary to the bowel ischemia. Patient is recently status post enteroscopy beyond the duodenum and ablation of a bleeding lesion. In the ED he is currently afebrile and hemodynamically stable with a MAP
of 60 1:05 liter of normal saline bolus. He is on his 3 L home O2. He is anticoagulated with a INR of 3.45 which is at goal. He just received dialysis on Tuesday. His labs are unremarkable from that perspective. His hemoglobin is 10.7 which
has been stable. He does have leukocytosis to 22,000 with significant bandemia.
PLAN:
Small bowel obstruction likely secondary to small bowel ischemia/ischemic bowel based on CT scan. Lactic acid so far is negative.
� Admit patient to ICU
� Patient is going for emergency surgery
� Correct INR with vitamin K and possibly for factor PCC per surgery given 2 mg of IV vitamin K for now
� Type and screen
� Holding Coumadin for now
� N.p.o.
� Gentle hydration postprocedure
� Pain control
� Antiemetics
�Orogastric/nasogastric tube surgery
�Likely patient may remain intubated after the procedure
� Labor Relations Or Personnel Negotiator consultation
End-stage renal disease�no indication for acute hemodialysis at this time
� Nephrology consultation
� N.p.o. for now
Anticoagulation for A-fib and mechanical aortic valve
� Vitamin K given, for PCC per surgery
� Trend INR, when INR is less than 3 will start heparin bridging
Small intestinal bleeding
� Continue octreotide 100 mcg subcu twice daily
� Pantoprazole IV
Congestive heart failure�patient is currently euvolemic, does not make any urine
� Patient on digoxin 62.5 mcg daily, restart this once there is an enteral pathway available
� Patient is on fludrocortisone for orthostatic hypotension will continue when tolerating p.o.
[2025-10-31] MEDS: MAXIPIME 2000 MG IV (02:04)
[2025-10-31] MEDS: AQUAMEPHYTON 50.2 MG IV (02:24)
[2025-10-31] MEDS: KCENTRA 80 UNIT IV (02:48)
[2025-10-31] MEDS: FLAGYL 500 MG 100 IV ×3 (03:04→18:06)
--- NOTE | 2025-10-31 05:14 | W.IMMPOSTOP ---
Surgical Immed Post Op Note
-
Primary Surgeon: Jumana
Pre-op Diagnosis: Ischemic bowel
Post-op Diagnosis: Necrotic and ischemic bowel
Procedure Performed: Exploratory laparotomy, small bowel resection, placement of temporary abdominal closure device
Anesthesia Type: GETA
Specimen / Cultures: Small bowel
Estimated Blood Loss: 10cc
Complications: None immediate
Operative Findings: 90cm frankly necrotic mid small bowel resected; 2 areas of patchy ischemia in proximal jejunum each encompassing ~50% circumference, this area exhibited signs of peristalsis and was left in situ, patient on 2 pressors with
conversion to damage control laparotomy, tentatively for return to OR in 24 hours if physiology improves
Pt requested no phone calls be made to family
Prognosis guarded
--- NOTE | 2025-10-31 05:19 | CON.GS ---
Consultation
-
Date/Time Consultation Performed: 11/01/25
Requesting Provider: Efrain
Performing Provider: Jumana
Reason for Consultation: Ischemic bowel
Medical History
-
Chief Complaint: Abd pain
History of Present Illness:
50M with ESRD on HD, mechanical MVR on coumadin, hepatic cirrhosis, pulm insufficiency on O2, CHF, CVA with recent DC 2 days ago from [facility] for GI bleed managed by [facility]. Reports ongoing abd pain since before DC that progressively worsened. Endorses
n/v. Unsure about f/c. Limited history due to pt acuity and pain. Some hx obtained from chart.
Past Medical History
Past Medical History: Other (As per HPI)
Past Surgical History: Other (As per HPI)
Social History
Tobacco: Former Smoker
Alcohol: Occasional
Personal:
Living: Halfway
Employment: Disabled
Family History
Family History: Reviewed & Noncontributory
Allergies / Home Medications
Allergy/AdvReac Type Severity Reaction Status Date / Time
dalteparin,porcine Allergy Unknown Verified 10/31/25 01:53
enoxaparin Allergy Unknown, Verified 10/31/25 01:53
[facility] record
isosorbide Allergy Unknown, Verified 10/31/25 01:53
[facility] record
meperidine Allergy Unknown, Verified 10/31/25 01:53
[facility] record
piperacillin sodium (From Allergy Itching; Verified 10/31/25 01:53
Zosyn) Tolerated
AMOXICILLIN
shellfish derived Allergy ALLERGY-FISH Verified 10/31/25 01:53
EXCEPT TUNA
tazobactam sodium (From Allergy Itching Verified 10/31/25 01:53
Zosyn)
�Medication �Instructions �Recorded �Confirmed �Type
gabapentin 300 mg capsule 300 mg PO HS Pain 03/11/15 10/31/25 History
atorvastatin 20 mg tablet 20 mg PO HS High cholesterol 10/04/18 10/31/25 History
sevelamer carbonate 800 mg tablet 800 mg PO TID Kidney Disease 10/04/18 10/31/25 History
pantoprazole 40 mg tablet,delayed 40 mg PO DAILY Gastrointestinal 01/17/20 10/31/25 History
release issue
acetaminophen 325 mg tablet 650 mg PO Q4HPRN PRN mild 10/14/23 10/31/25 History
pain/temp>100F
midodrine 10 mg tablet 10 mg PO TID Hold for SBP >110 10/14/23 10/31/25 History
fludrocortisone 0.1 mg tablet 0.1 mg PO DAILY Blood pressure #30 09/14/24 10/31/25 Rx
tabs
bisacodyl 10 mg rectal suppository 10 mg MD DAILYPRN PRN constipation 12/14/24 10/31/25 History
(Dulcolax (bisacodyl))
levothyroxine 175 mcg/mL oral 200 mcg PO DAILY Thyroid 05/15/25 10/31/25 History
solution (Tirosint-Nessa)
lidocaine-prilocaine 2.5 %-2.5 % 1 applic topical MOWEFR apply to L 05/15/25 10/31/25 History
topical cream arm fistula
trazodone 100 mg tablet 150 mg (1.5 x 100 mg) PO HS@0000 08/17/25 10/31/25 Rx
depression/sleep #0 tabs
albuterol sulfate 5 mg/mL(0.5 %) 2.5 mg inhalation Q6H PRN 10/31/25 10/31/25 History
solution for nebulization sob/wheezing
budesonide 0.25 mg/2 mL suspension 0.25 mg inhalation BID PRN 10/31/25 10/31/25 History
for nebulization (Pulmicort) dyspnea/wheeze
bupropion HCl 150 mg tablet,12 hr 150 mg PO .DAILYINAM 10/31/25 10/31/25 History
sustained-release (Wellbutrin SR)
digoxin 125 mcg (0.125 mg) tablet 62.5 mcg PO DAILY 10/31/25 10/31/25 History
lamotrigine 200 mg tablet 200 mg PO BID Seizures 10/31/25 10/31/25 History
(Lamictal)
octreotide acetate 100 mcg/mL (1 100 mcg SC Q12H 10/31/25 10/31/25 History
mL) injection syringe
ondansetron 4 mg disintegrating 4 mg PO Q6H PRN GI bleed/GERD 10/31/25 10/31/25 History
tablet
polyethylene glycol 3350 17 gram 17 g PO HS Constipation 10/31/25 10/31/25 History
oral powder packet
sodium phosphates 19 gram-7 118 ml MD ONCE PRN constipation if 10/31/25 10/31/25 History
gram/118 mL enema (Fleet Enema) dulcolax ineffective after 24 hrs
tramadol 50 mg tablet 50 mg PO [id number] PRN moderate pain 10/31/25 10/31/25 History
Review of Systems
-
A 10 point review of systems was completed, and was negative except as per HPI.
Physical Exam
Vital Signs
Temp Pulse Resp BP Pulse Ox
98.6 F 78 22 90/50 95
10/31/25 02:56 10/31/25 03:00 10/31/25 02:30 10/31/25 03:00 10/31/25 03:00
10/29/25 10/30/25 10/31/25
06:59 06:59 06:59
Actual Weight 96.4 kg
Body Mass Index (BMI) 28.8
Lab Results
10/31/25 00:06
10/31/25 00:06
WBC 22.4 10^3/uL (4.8-10.8) H 10/31/25 00:06
Hgb 10.6 g/dL (13.0-18.0) L 10/31/25 00:06
Hct 32.2 % (39.0-52.0) L 10/31/25 00:06
Plt Count 261 10^3/uL (130-400) 10/31/25 00:06
Physical Exam
General: Other (mild distress)
GI: Soft, Tender (tt light perc) and Distended
Skin: Warm and Dry
Neuro: AO x 3
Psych: Calm
Data Reviewed
-
CT Scan: Image Personally Visualized and interpreted, Report Reviewed by me, Discussed with Physician and Discussed with Patient
Labs: Labs Reviewed by me, Discussed with Physician and Discussed with Patient
Assessment / Plan
-
50M with ischemic bowel
Hypotensive but fluid responsive
Generalized peritonitis
Emergently to OR for ex lap
IV abx
Kcentra reversal given
Explained to patient he is very high risk with multiple systems compromised and this may not be a survivable event. We discussed going to surgery vs hospice and he preferred surgery.
Offered to call his family to discuss and he declined.
[2025-10-31] MEDS: SUBLIMAZE 95 MCG IV (06:19)
[2025-10-31] MEDS: DIPRIVAN 100 IV ×3 (06:20→22:48)
[2025-10-31] MEDS: SUBLIMAZE 100 IV (06:20)
[2025-10-31] MEDS: LR 1000 IV (06:33)
[2025-10-31] MEDS: ADRENALIN 250 IV (06:53)
[2025-10-31 07:05] LABS: B.E. -5.3 mmol/L; HCO3 20.6 mmol/L (21-28); O2 Saturation % 98.9 % (94-98); PCO2 41 mmHg (35-48); PO2 123 mmHg (83-108)
[2025-10-31 07:10] LABS: Hematocrit 32.4 % (39.0-52.0); Hemoglobin 10.6 g/dL (13.0-18.0); Mean Corp Hgb Conc. 32.7 g/dL (33.0-37.0); Mean Corpuscular Volume 88.5 fL (80.0-94.0); Platelet Count 272 10^3/uL (130-400); Red Cell Dist. Width 17.5 % (11.5-14.5)
[2025-10-31 07:16] LABS: INR 1.61; PT 18.9 Sec (11.4-14.6)
[2025-10-31 07:17] LABS: APTT 36.7 Sec (23.4-35.0)
--- NOTE | 2025-10-31 07:24 | PTCARENOTE ---
Pt received at 05:55 from OR, intubated, sedate, on levo and epi gtts as per worklist. Fent and prop gtts initiated as ordered. #8 ETT @ 25cm. AC 16/500/40%/+5. NGT with coffee ground output, LIWS. Abthera woundvac present, seal maintained.
[2025-10-31 08:20] LABS: ALT (SGPT) 17 U/L (0-50); AST (SGOT) 37 U/L (17-59); Albumin 3.0 g/dl (3.5-5.0); Alkaline Phosphatase 96 U/L (38-126); Blood Urea Nitrogen 43 mg/dl (9-20); Calcium 6.5 mg/dl (8.4-10.2); Carbon Dioxide 18 mmol/L (22-30); Chloride 98 mmol/L (98-107); Estimated Creatinine Clearance 14 ml/min; Glucose 184 mg/dl (70-99); Magnesium 1.7 mg/dl (1.6-2.3); Potassium 3.1 mmol/L (3.5-5.1); Sodium 134 mmol/L (135-145); Total Protein 6.2 g/dl (6.3-8.2); Triglycerides 104 mg/dl (10-149); eGFR 9.08
[2025-10-31] MEDS: SANDOSTATIN 100 MCG SC ×2 (08:23→20:07)
[2025-10-31] MEDS: LEVOPHED 250 IV ×3 (08:53→15:57)
--- NOTE | 2025-10-31 09:19 | W.PN.HOSP.TC ---
Today's Communication/Plan
-
see plan
Assessment / Plan
Assessment / Plan
Gen: NAD, NCAT
CV: RRR, +S1/S2, no m/r/g.
Resp: CTAB anteriorly, no rales, wheezes, or rhonchi.
Abd: absent BS, soft, mild distention
Skin: No rashes.
Neuro: sedated
CT A/P:
Mild small bowel dilatation suggesting ileus versus early or partial small bowel obstruction. New. Associated pneumatosis and mesenteric venous gas suggesting ischemia. New
Mild airspace disease in the right lower lung field concerning for pneumonia. Atelectasis not excluded. New
Moderate left lower lobe atelectasis versus scarring. Developing pneumonia not excluded. New
Rectal wall thickening concerning possible right-sided renal mass and proctitis. New.
Nodular hepatic margin suggesting cirrhosis. Stable
Mild ascites about the liver. New
Bilateral renal atrophy. Stable
Moderate cardiomegaly. Stable
Septic shock due to SBO causing ischemic bowel:
-s/p 10/31AM exploratory laparotomy, small bowel resection, placement of temporary abdominal closure device by Dr. Denney. Will return to OR 11/01. Note, as per OR report, '90cm frankly necrotic mid small bowel resected; 2 areas of patchy ischemia
in proximal jejunum each encompassing ~50% circumference, this area exhibited signs of peristalsis and was left in situ.'
-cont sedation with propofol/fentanyl
-cont vasopressors Levophed/epi gtts
-remain intubated today, vent settings AC 500/16/5/40%
-cont Cefepime/Flagyl, c/s ID
-currently on Octreotide SC Q12H
-note, pt with mechanical MV and INR reversed with Vit K and prothrombin complex. Will d/w surgery timing of restarting AC.
h/o SJM Mechanical MVR 1997:
-[employer] message sent to the team (Drs. Denney/Erwin) at [id number] to ask when it's safe from a surgical standpoint to place the pt on heparin gtt as INR < 2.5 at this time.
Other problems:
ESRD: c/s renal for HD
Permanent Afib: will initiate heparin gtt if OK with surgery. Cont Dig.
Severe TR
Anemia of chronic renal disease: trend Hb
h/o ICD explant due to infection 2005
h/o CVA
Chronic HFrEF with recovered EF, now EF 45-50% on most recent echo: daily wts, I/Os
Hypokalemia, replete
Total critical care time = 46 min
Anticipated Discharge: > 48 hours
Subjective/Interval History
-
Date of Service: October 31, 2025
Patient seen and examined after postmidnight admission. Currently intubated and sedated.
Objective Data
-
Labs:
Laboratory Results
10/31/25 10/31/25
00:06 06:51
WBC 22.4 H 14.2 H
Hgb 10.6 L 10.6 L
Hct 32.2 L 32.4 L
Plt Count 261 272
PT 34.2 H 18.9 H
INR 3.45 1.61
APTT 45.7 H 36.7 H
HCO3 20.6 L
Sodium 137 134 L
Potassium 3.6 3.1 L
Chloride 98 98
Carbon Dioxide 25 18 L
BUN 39 H 43 H
Creatinine 7.1 H* 6.8 H*
Glucose 120 H 184 H
Calcium 7.7 L 6.5 L*
Total Bilirubin 2.4 H 2.8 H
AST 41 37
ALT 18 17
Alkaline Phosphatase 96 96
Vital Signs:
Vital Signs
Temp Pulse Resp BP Pulse Ox
96.1 F L 102 17 90/50 99
10/31/25 07:18 10/31/25 08:00 10/31/25 08:00 10/31/25 03:00 10/31/25 08:08
I&O
10/30/25 10/31/25 11/01/25
06:59 06:59 06:59
Intake Total 271.0 / 271.0
Output Total 0 / 0
Balance 271.0 / 271.0
--- NOTE | 2025-10-31 10:18 | CON.INTV ---
Consultation
Consultation Request
Date/Time Consultation Requested: 10/31/2025
Date/Time Consultation Performed: 10/31/2025
Requesting Provider: Dr. Duran
Performing Provider: Dr. Glen Hood
Reason for Consultation: Septic shock/hypoxemic respiratory failure
Medical History
-
History of Present Illness:
50-year-old man with complicated past medical history including end-stage renal disease on dialysis, heart failure with reduced ejection fraction, atrial fibrillation, hypothyroidism, obstructive sleep apnea, status post aortic valve replacement on
anticoagulation mechanical, chronic oxygen needs at 3 L, history of GI bleed requiring transfer to [facility] for enteroscopy with ablation of bleeding presented now with abdominal pain and abdominal distention.
Patient was transferred from long term for further evaluation for severe abdominal pain.
Patient was hypotensive in the emergency room.
Had a leukocytosis.
CT abdomen pelvis shows significant small bowel obstruction, small bowel pneumatosis, scattered abdominal free fluid and suggestion of bowel ischemia.
Emergently taken to the operating room for exploratory laparotomy, found to have oscar necrotic mid small bowel which was resected. Abdominal wound was left open with plans for repeat OR in the next 24 hours.
Currently in septic shock requiring 2 pressors, intubated on mechanical ventilation.
Critical care consulted for further management.
Past Medical History
Past Medical History: Other (See assessment and plan)
Social History
Tobacco: Non-smoker
Alcohol: None
Drug: None
Living: [facility]
Family History
Family History: Unable to Obtain
Allergies / Home Medications
Allergies
Allergy/AdvReac Type Severity Reaction Status Date / Time
dalteparin,porcine Allergy Unknown Verified 10/31/25 01:53
enoxaparin Allergy Unknown, Verified 10/31/25 01:53
[facility] record
isosorbide Allergy Unknown, Verified 10/31/25 01:53
[facility] record
meperidine Allergy Unknown, Verified 10/31/25 01:53
[facility] record
piperacillin sodium (From Allergy Itching; Verified 10/31/25 01:53
Zosyn) Tolerated
AMOXICILLIN
shellfish derived Allergy ALLERGY-FISH Verified 10/31/25 01:53
EXCEPT TUNA
tazobactam sodium (From Allergy Itching Verified 10/31/25 01:53
Zosyn)
Home Medications
�Medication �Instructions �Recorded �Confirmed �Last Taken �Type
gabapentin 300 mg capsule 300 mg PO HS Pain 03/11/15 10/31/25 05/14/25 History
atorvastatin 20 mg tablet 20 mg PO HS High cholesterol 10/04/18 10/31/25 05/14/25 History
sevelamer carbonate 800 mg tablet 800 mg PO TID Kidney Disease 10/04/18 10/31/25 05/15/25 History
pantoprazole 40 mg tablet,delayed 40 mg PO DAILY Gastrointestinal 01/17/20 10/31/25 05/15/25 History
release issue
acetaminophen 325 mg tablet 650 mg PO Q4HPRN PRN mild 10/14/23 10/31/25 04/13/25 History
pain/temp>100F
midodrine 10 mg tablet 10 mg PO TID Hold for SBP >110 10/14/23 10/31/25 05/15/25 History
fludrocortisone 0.1 mg tablet 0.1 mg PO DAILY Blood pressure #30 09/14/24 10/31/25 05/15/25 Rx
tabs
bisacodyl 10 mg rectal suppository 10 mg IL DAILYPRN PRN constipation 12/14/24 10/31/25 Unknown History
(Dulcolax (bisacodyl))
levothyroxine 175 mcg/mL oral 200 mcg PO DAILY Thyroid 05/15/25 10/31/25 05/14/25 History
solution (Tirosint-Nessa)
lidocaine-prilocaine 2.5 %-2.5 % 1 applic topical MOWEFR apply to L 05/15/25 10/31/25 05/15/25 History
topical cream arm fistula
trazodone 100 mg tablet 150 mg (1.5 x 100 mg) PO HS@0000 08/17/25 10/31/25 Unknown Rx
depression/sleep #0 tabs
albuterol sulfate 5 mg/mL(0.5 %) 2.5 mg inhalation Q6H PRN 10/31/25 10/31/25 Unknown History
solution for nebulization sob/wheezing
budesonide 0.25 mg/2 mL suspension 0.25 mg inhalation BID PRN 10/31/25 10/31/25 Unknown History
for nebulization (Pulmicort) dyspnea/wheeze
bupropion HCl 150 mg tablet,12 hr 150 mg PO .DAILYINAM 10/31/25 10/31/25 Unknown History
sustained-release (Wellbutrin SR)
digoxin 125 mcg (0.125 mg) tablet 62.5 mcg PO DAILY 10/31/25 10/31/25 Unknown History
lamotrigine 200 mg tablet 200 mg PO BID Seizures 10/31/25 10/31/25 Unknown History
(Lamictal)
octreotide acetate 100 mcg/mL (1 100 mcg SC Q12H 10/31/25 10/31/25 Unknown History
mL) injection syringe
ondansetron 4 mg disintegrating 4 mg PO Q6H PRN GI bleed/GERD 10/31/25 10/31/25 Unknown History
tablet
polyethylene glycol 3350 17 gram 17 g PO HS Constipation 10/31/25 10/31/25 Unknown History
oral powder packet
sodium phosphates 19 gram-7 118 ml IL ONCE PRN constipation if 10/31/25 10/31/25 Unknown History
gram/118 mL enema (Fleet Enema) dulcolax ineffective after 24 hrs
tramadol 50 mg tablet 50 mg PO [id number] PRN moderate pain 10/31/25 10/31/25 Unknown History
Review of Systems
-
Unable to Obtain full review of systems at this time due to: Acuity and Patient Intubation
Vitals / Labs / Diagnostic Testing
Vital Signs
Temp Pulse Resp BP Pulse Ox
96.1 F L 102 17 90/50 99
10/31/25 07:18 10/31/25 08:00 10/31/25 08:00 10/31/25 03:00 10/31/25 08:08
Lab Data
10/31/25 06:51
Laboratory Results
10/31/25 10/31/25
00:06 06:51
PT 34.2 H 18.9 H
INR 3.45 1.61
APTT 45.7 H 36.7 H
pH 7.31 L
pCO2 41
pO2 123 H
HCO3 20.6 L
O2 Delivery Level
Diagnostic Testing:
Physical Exam
-
HEENT: Normocephalic
Cardiovascular: S1/S2
Respiratory: Non-Labored Respirations
GI: Soft and Other (Absent bowel sounds, would VAC in place. )
Neurology: Other (Sedated)
Skin: Warm
Assessment
-
50-year-old man with a recent history of GI bleed, he was transferred in early October to [facility]-underwent enteroscopy with ablation of bleeding. He was discharged about 2 days ago to his long term.
He reported ongoing abdominal pain before and after discharge. Admitted to [facility] 10/31/2025 with severe abdominal pain. Found to have bowel ischemia underwent exploratory laparotomy emergently-transferred to the critical care unit
intubated and on multiple pressors.
Septic [id number] source
CT of the abdomen pelvis showing fluid-filled dilated small bowel loops measuring up to 3.1 cm with transition point in the right lower quadrant reflecting small bowel obstruction likely due to underlying adhesions, there is extensive small bowel
pneumatosis as well as mesenteric venous gas reflecting bowel ischemia. Scattered abdominal free fluid.
Bowel ischemia-status post exploratory laparotomy 10/30/2024
90cm frankly necrotic mid small bowel resected; 2 areas of patchy ischemia in proximal jejunum each encompassing ~50% circumference, this area exhibited signs of peristalsis and was left in situ
Coumadin coagulopathy-status post reversal
History of aortic valve replacement-
Conditions present prior admission:
End-stage renal disease on hemodialysis
Heart failure with reduced ejection fraction
Pulmonary hypertension-possibly postcapillary. Post mitral valve disease.
Type 2 diabetes
Hyperlipidemia
Atrial fibrillation
Hypothyroidism
Chronic anticoagulation status post mitral valve- mechanical
Obstructive sleep apnea
GERD
skilled nursing resident
Recent GI bleed-transferred to [facility] for enteroscopy and ablation of small bowel bleeding. 10/2025
Assessment and plan:
Patient is critically ill, complex situation due to multiple comorbidities.
-
Septic shock due to intra-abdominal source
Currently on Levophed and epinephrine.
Lactic acid elevated at 4.[address]
Plan will be to maintain Levophed and transition to Pio-Synephrine.
Hopefully can wean off epinephrine.
Minimal IV fluid resuscitation as the patient has chronic kidney disease and is at risk of volume overload.
([id number] has LVEF of 45 to 50%/prosthetic mitral valve/dilated and hypokinetic right ventricle with severe pulmonary hypertension similar to September 2024.).
-
Chest x-ray also with patchy bilateral abnormalities: Pulmonary edema versus pneumonia versus chronic changes
No recent CT chest available
For now he is already on antibiotics
Doubt pneumonia based on pulmonary mechanics
40% FiO2 and pulmonary mechanics not consistent with reduced compliance
Will continue to follow for now
-
Case discussed with surgery/primary team
Wound VAC in place
Plan for repeat OR in the next 24 hours
Follow cultures
Continue antibiotics
-
With mechanical mitral valve will start heparin drip without a bolus
Follow PTT
Monitor for bleeding
Trend H&H
High risk situation
-
Mechanical ventilation settings reviewed
Pulmonary mechanics acceptable
FiO2 is 40%
ET tube with no secretion
ABG 7.30
Continue mechanical ventilation status without change
Continue sedation.
-
Chronic kidney disease: On hemodialysis
Nephrology to follow
Unclear whether he will tolerate dialysis on vasopressors
Follow acidosis
So far no evidence for significant volume overload
-
Monitor blood sugars
Insulin sliding scale
-
N.p.o.
Head of the bed elevation
Protonix for GI prophylaxis
Anticoagulation to be restarted.
-
Agree with palliative care consultation
It is noted that the patient did not want family to be notified about condition based on previous conversation with surgery.
-
Critical care statement: A total of 45 minutes of critical care time was provided for this patient today. This includes management of unstable vital signs, evaluation of the patient at bedside, reviewing the patient's pertinent medical records
including ventilator settings, arterial blood gases, radiographs, microbiology, laboratory evaluations and discussion with primary team, critical care nursing, and respiratory therapy.
[2025-10-31] MEDS: FLORINEF PO (10:29)
[2025-10-31] MEDS: KCL 270 MEQ IV (10:42)
[2025-10-31] MEDS: HEPARIN 25000 UNITS/250 ML IV (10:46)
--- NOTE | 2025-10-31 11:25 | CON.ID ---
Consultation
-
Date/Time Consultation Requested: 10/31/25 9:46
Date/Time Consultation Performed: 10/31/25 11:25
Requesting Provider: Dr Sanchez
Performing Provider: Dr Walker
Reason for Consultation: shock
Chief Complaint / Past History
Chief Complaint
abdominal pain and distension
History of Present Illness
Mr Amin is a 50-year-old man with complicated past medical history including end-stage renal disease on dialysis, heart failure with reduced ejection fraction, atrial fibrillation, status post mechanical aortic valve replacement on
anticoagulation, COPD on 3 L, hepatic cirrhosis on chronic midodrine, history of GI bleed requiring transfer to [facility] for enteroscopy with ablation, bedbound, presented now with abdominal pain and abdominal distention, nausea and vomiting. Unsure
if he's had fevers or chills. History obtained from chart review. Patient was [facility] from [facility] for further evaluation for severe abdominal pain.
In the ER hypotensive requiring pressors to a max dose of epi 10 mcg/min, norepi 17 mcg/min, afebrile, HR normal, RR in the teens, wbc 22.4 initially today 14.2, hgb 10.6, plt 261, L shift noted on arrival, na 137, k 3.6, cr 7.1, lactic acid
initially 2.8 now 4.3,t bili now 2.8 direct bili 2.1, ast 37, alt 17, alk phos 96,
CT abdomen pelvis shows significant small bowel obstruction, small bowel pneumatosis, scattered abdominal free fluid and suggestion of bowel ischemia. rectal wall thickening concerning for R sided renal mass and proctitis.
Emergently taken to the operating room for exploratory laparotomy, found to have oscar necrotic mid small bowel which was resected. Abdominal wound was left open with plans for repeat OR in the next 24 hours. Currently in septic shock requiring 2
pressors, intubated on mechanical ventilation. CXR more pronounced bilateral pathcy airspace dz - concerning for pneumonia, COPD, currently on cefepime and IV metronidazole, ID is consulted for assistance with management.
Past History
Additional Past Medical History:
HFrEF
ESRD on HD
DM II
hyperlipidemia
atrial fibrillation
hypothyroidism
obstructive sleep apnea
GERD
Additional Past Surgical History:
h/o ICD explant due to infection 2005
mitral valve replacement
AV fistula
Allergy History:
dalteparin,porcine Allergy (Verified 10/31/25 01:53)
Unknown
enoxaparin Allergy (Verified 10/31/25 01:53)
Unknown, [facility] record
isosorbide Allergy (Verified 10/31/25 01:53)
Unknown, NH record
meperidine Allergy (Verified 10/31/25 01:53)
Unknown, NH record
piperacillin sodium (From Zosyn) Allergy (Verified 10/31/25 01:53)
Itching; Tolerated AMOXICILLIN
shellfish derived Allergy (Verified 10/31/25 01:53)
ALLERGY-FISH EXCEPT TUNA
tazobactam sodium (From Zosyn) Allergy (Verified 10/31/25 01:53)
Itching
Medications Reviewed: Yes
Social History
Tobacco: Non-Smoker
Alcohol: Occasional
Drug: None
Family History
Family History: Not Pertinent
Review of Systems
Review of Systems
obtained from chart review:
Constitutional: Reports No Symptoms
EENT: Reports No Symptoms
Respiratory: Reports No Symptoms
Cardiac: Reports No Symptoms
Abdomen/GI: Reports Abdominal Pain and Nausea
: Reports No Symptoms
Musculoskeletal: Reports No Symptoms
Skin: Reports No Symptoms
Neurological: Reports No Symptoms
Endocrine: Reports No Symptoms
Hematologic/Lymphatic: Reports No Symptoms
Psych: Reports No Symptoms
Vital Signs
Temp Pulse Resp BP Pulse Ox
96.1 F L 96 26 90/50 100
10/31/25 07:18 10/31/25 10:30 10/31/25 10:30 10/31/25 03:00 10/31/25 10:30
Physical Exam
Physical Exam
Constitutional: No Acute Distress and Chronically Ill
Cardiovascular: Regular Rate and S1/S2; Negative Murmur or Rub
Pulmonary: Clear and Symmetric; Negative Wheezes, Rales or Rhonchi
Gastrointestinal: Soft, Non Tender, Non Distended and Normal Bowel Sounds
Skin: Warm and Dry; Negative Rash or Jaundice
Wound: Other (midline wound vac in place)
Neurological: Awake
Lab / Diagnostic Study Results
10/31/25 06:51
Total Counted 100 10/31/25 00:06
Abs Neuts (Manual) 19.2 10^3/uL (1.4-6.5) H 10/31/25 00:06
Segmented Neutrophils 39 % (42-75) L 10/31/25 00:06
Band Neutrophils 47 % (0-3) H 10/31/25 00:06
Lymphocytes (Manual) 2 % (20-51) L 10/31/25 00:06
PT 18.9 Sec (11.4-14.6) H 10/31/25 06:51
INR 1.61 10/31/25 06:51
Lactic Acid 4.3 mmol/L (0.7-2.0) H* 10/31/25 06:51
Assessment / Plan
Septic Shock
Ischemic Bowel
Possible Pneumonia - less likely per pulmonary due to mechanics
COPD
Cirrhosis
Mechanical MV
ESRD on HD
Reported Allergy to Zosyn
- blood cultures x2
- sputum culture if able to obtain one - does not seem to be producing
- will follow up OR findings tomorrow
- start ceftriaxone 2 gm IV q24
- continue metronidazole at 500 mg IV q8 for present
- add vancomycin - Enterococcal coverage
- possible rectal mass seen on CT a/p - eventual assessment
- may consider a challenge with unasyn given report of tolerating amoxicillin when patient is stabilized
patient is critically ill
--- NOTE | 2025-10-31 12:00 | PTCARENOTE ---
Critical labs from this morning reported to [employer] Dr. Hood. Patient waking up more this afternoon, nods head and gives thumbs up. Reports pain to abd; PRN Fentanyl provided with good result. Weak gag and cough. Pupils sluggish. NSR w/ BBB.
Right radial A-line zeroed and flushed, correlating to external BP cuff. ETT #8 25cm @lip. A/C 16/500/ 40%/ 5 PEEP. Lungs coarse throughout anterior, posterior diminished. Oropharyngeal secretions dark red/brown colored. Sputum from ETT sent; scant
amount of chow/brown in color. 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 Blood cultures sent from line prior to Abx administration. LUE AV fistula +/+. Patient has been turned Q2 hours; bottom intact. NGT to right nare LIWS; minimal
brown output. Fang without any urine output. Abd WV intact, draining serosanginous fluid. Heparin gtt started; plan to stop at 0330 in prep for surgery tomorrow. Epi gtt off, transitioned to Pio gtt for MAP >65. Remains on Prop & Fent gtts. Music
provided on TV for comfort. SCDs on. Heels floated on pillows.
--- NOTE | 2025-10-31 12:11 | W.PN.GS2 ---
Today's Communication / Plan
-
Trial hep gtt
Wean pressors as able
Assessment / Plan
-
50M POD0 s/p ex lap and small bowel resection for necrotic and ischemic bowel, in discontinuity with abthera closure
High risk situation
OK to start hep gtt, no bolus, and monitor abthera tubing, if it becomes bloody, hold heparin
Tentatively for RTOR in the am pending improvement in pressor reqs
D/w Intensitivist, no urgent need for HD, would plan tentatively to dialyze post-op tomorrow
Brother updated by phone
Subjective Data
-
Date of Service: October 31, 2025
Intubated, sedated, 2 pressors
Objective Data
-
Intake and Output
10/30/25 10/31/25 11/01/25
06:59 06:59 06:59
Intake Total 824.4 / 824.4
Output Total 0 / 0
Balance 824.4 / 824.4
Intake:
Oral fluids 0 / 0
IV fluids (Total) 554.4 / 554.4
Epi 127.6 / 127.6
Fent 10.0 / 10.0
Heparin 20 / 20
Levo 225.2 / 225.2
Lr 1,000 ml @ 40 mls/hr IV . 160 / 160
Q24H VLADIMIR Rx#:[id number]
Prop 11.6 / 11.6
IV piggybacks 270 / 270
Output:
Urine, Andre 0 / 0
Vital Signs
Temp Pulse Resp BP Pulse Ox
97.7 F 96 26 90/50 98
10/31/25 11:32 10/31/25 10:30 10/31/25 10:30 10/31/25 03:00 10/31/25 11:33
Lab Results
10/31/25 06:51
Calcium 6.5 mg/dl (8.4-10.2) L* 10/31/25 06:51
Magnesium 1.7 mg/dl (1.6-2.3) 10/31/25 06:51
Total Bilirubin 2.8 mg/dl (0.2-1.3) H 10/31/25 06:51
Direct Bilirubin 2.1 mg/dl (0.0-0.4) H 10/31/25 06:51
AST 37 U/L (17-59) 10/31/25 06:51
ALT 17 U/L (0-50) 10/31/25 06:51
Alkaline Phosphatase 96 U/L (38-126) 10/31/25 06:51
Total Protein 6.2 g/dl (6.3-8.2) L 10/31/25 06:51
Albumin 3.0 g/dl (3.5-5.0) L 10/31/25 06:51
Physical Exam
-
Gen: intubated/sedated
Abd: abthera in place and functioning, light ss fluid draining
Patient has a andre catheter: Yes
Patient has a central line: Yes
[2025-10-31] MEDS: NEO-SYNEPHRINE 250 IV ×2 (12:17→18:35)
[2025-10-31] MEDS: STERILE WATER FOR INJECTION 20 ML IV (13:01)
[2025-10-31] MEDS: ROCEPHIN 2000 MG IV (13:02)
[2025-10-31] MEDS: VANCOCIN 530 MG IV (13:09)
--- NOTE | 2025-10-31 13:09 | PHA.VAN.IN ---
Assessment
- Assessment
Renal Function: Patient has ESRD, on chronic Hemodialysis (MWF)
Concomitant Antimicrobials: Ceftraixone 2000 mg IV q24H
Recent MRSA screen on 10/09/25 was negative.
AUC Dosing Plan
- Monitoring
Levels to be Drawn after Dose #: 1 (draw random after loading dose with am labs)
Plan
- Plan
Initial / Loading Dose: 1500 mg IV x 1 dose
Monitoring: dose per level
Pharmacokinetics Vancomycin I
- -
Patient Age: 50
Patient Sex: Male
Vancomycin Day #: 1
Indication: Pulmonary/Respiratory
Requesting Provider: ERICA ROONEY
Pertinent Antimicrobial Allergies:
PIP/TAZO=ITCHING, tolerates amoxicillin and cepharlosporins
Height / Weight:
Height 6 ft
Actual Weight 97.4 kg
Pertinent Past Medical History: ESRD on dilaysis MWF, COPD, DM, chronic respiratory failure, [place] resident
- Vital Signs / Lab Results
Temp Pulse Resp BP Pulse Ox
97.7 F 90 23 90/50 99
10/31/25 11:32 10/31/25 12:30 10/31/25 12:30 10/31/25 03:00 10/31/25 12:30
Lab Results - Hematology
10/31/25 10/31/25
00:06 06:51
WBC 22.4 H 14.2 H
Band Neutrophils 47 H
Lab Results - Chemistry
10/31/25 10/31/25
00:06 06:51
BUN 39 H 43 H
Creatinine 7.1 H* 6.8 H*
Estimated Creat Clear 14
Albumin 3.8 3.0 L
10/31/25 10/31/25 10/31/25
00:06 00:15 06:51
Lactic Acid 2.8 H Cancelled 4.3 H*
[2025-10-31] MEDS: SUBLIMAZE 50 MCG IV ×4 (13:18→23:43)
[2025-10-31 13:24] LABS: Glucose - Point of Care 151 mg/dl (70-99)
--- NOTE | 2025-10-31 13:29 | CM ---
Reviewed chart, pt currently intubated , information obtained from recent admit.
Pt resides at [facility] in LTC, self propels wheelchair. Wears O2 3L NC continuously.
Pt goes to Hemodialysis MWF at [facility] in [place], [facility] provides transportation.
Pt recently admitted 10/09 to 10/11, transferred to [facility], underwent Enteroscopy.
Pt went to OR early this am for ex lpa, found to have necrotic bowel, abdominal wound was left open and will return to the OR within next 24 hours. Currently on 2 pressors.
PCP: William Bellamy
Pharmacy: [facility]
Anticipate return to [facility] when medically stable, CM will continue to follow for all discharge planning needs.
--- NOTE | 2025-10-31 15:44 | W.CON.NEPH ---
Consultation
-
Date/Time Consultation Requested: October 31, 2025 1:00 a.m.
Date/Time Consultation Performed: October 31, 2025 10:00 a.m.
Requesting Provider: David Duran
Performing Provider: Dr. Zelaya
Reason for Consultation: ESRD
Medical History
-
Chief Complaint: ESRD
History of Present Illness:
50-year-old male with past medical history significant for end-stage renal disease on hemodialysis Tuesday, aortic stenosis status post aortic valve replacement, chronic anticoagulation on Coumadin, chronic hypoxic respiratory
failure on 3 L home O2, JOVITA, CHF with reduced EF, chronic hypotension, type 2 diabetes, bedbound, history of GI bleed requiring enteroscopy and ultimately transferred for enteroscopy beyond the duodenum and ablation of bleeding lesion at [facility], now
presents from residential with abdominal pain and distention.
Patient is transferred from [facility] for complaint of 10 out of 10 abdominal pain, hypotensive on arrival.
ultimately diagnosed with ischemic bowel and is s/p ex lap and small bowel resection for necrotic and ischemic bowel,
renal consult for end-stage renal disease and dialysis management in the setting of septic shock
Past Medical History
1. End-stage renal disease.
2. Atrial fibrillation.
3. Obstructive sleep apnea.
4. Chronic hypotension onmidodrine support
5. Cirrhosis.
6. Chronic respiratory failure on 3 L nasal cannula.
7. History of mitral valve endocarditis with subsequent mitral
valve repair.
8. History of hypothyroidism.
9. Cecal ulcer.
10.Anemia.
11.Obesity.
12.Depression.
13.Left upper extremity AV fistula.
14.AICD explant.
15 history of rectus abdominal sheath hematoma
Social History
Tobacco: Smoker
Alcohol: None
Living: Prison
Family History
no CKD
Family History: Not Pertinent
Allergies / Home Medications
Allergy/AdvReac Type Severity Reaction Status Date / Time
dalteparin,porcine Allergy Unknown Verified 10/31/25 01:53
enoxaparin Allergy Unknown, Verified 10/31/25 01:53
[facility] record
isosorbide Allergy Unknown, Verified 10/31/25 01:53
[facility] record
meperidine Allergy Unknown, Verified 10/31/25 01:53
[facility] record
piperacillin sodium (From Allergy Itching; Verified 10/31/25 01:53
Zosyn) Tolerated
AMOXICILLIN
shellfish derived Allergy ALLERGY-FISH Verified 10/31/25 01:53
EXCEPT TUNA
tazobactam sodium (From Allergy Itching Verified 10/31/25 01:53
Zosyn)
�Medication �Instructions �Recorded �Confirmed �Type
gabapentin 300 mg capsule 300 mg PO HS Pain 03/11/15 10/31/25 History
atorvastatin 20 mg tablet 20 mg PO HS High cholesterol 10/04/18 10/31/25 History
sevelamer carbonate 800 mg tablet 800 mg PO TID Kidney Disease 10/04/18 10/31/25 History
pantoprazole 40 mg tablet,delayed 40 mg PO DAILY Gastrointestinal 01/17/20 10/31/25 History
release issue
acetaminophen 325 mg tablet 650 mg PO Q4HPRN PRN mild 10/14/23 10/31/25 History
pain/temp>100F
midodrine 10 mg tablet 10 mg PO TID Hold for SBP >110 10/14/23 10/31/25 History
fludrocortisone 0.1 mg tablet 0.1 mg PO DAILY Blood pressure #30 09/14/24 10/31/25 Rx
tabs
bisacodyl 10 mg rectal suppository 10 mg WA DAILYPRN PRN constipation 12/14/24 10/31/25 History
(Dulcolax (bisacodyl))
levothyroxine 175 mcg/mL oral 200 mcg PO DAILY Thyroid 05/15/25 10/31/25 History
solution (Tirosint-Nessa)
lidocaine-prilocaine 2.5 %-2.5 % 1 applic topical MOWEFR apply to L 05/15/25 10/31/25 History
topical cream arm fistula
trazodone 100 mg tablet 150 mg (1.5 x 100 mg) PO HS@0000 08/17/25 10/31/25 Rx
depression/sleep #0 tabs
albuterol sulfate 5 mg/mL(0.5 %) 2.5 mg inhalation Q6H PRN 10/31/25 10/31/25 History
solution for nebulization sob/wheezing
budesonide 0.25 mg/2 mL suspension 0.25 mg inhalation BID PRN 10/31/25 10/31/25 History
for nebulization (Pulmicort) dyspnea/wheeze
bupropion HCl 150 mg tablet,12 hr 150 mg PO .DAILYINAM 10/31/25 10/31/25 History
sustained-release (Wellbutrin SR)
digoxin 125 mcg (0.125 mg) tablet 62.5 mcg PO DAILY 10/31/25 10/31/25 History
lamotrigine 200 mg tablet 200 mg PO BID Seizures 10/31/25 10/31/25 History
(Lamictal)
octreotide acetate 100 mcg/mL (1 100 mcg SC Q12H 10/31/25 10/31/25 History
mL) injection syringe
ondansetron 4 mg disintegrating 4 mg PO Q6H PRN GI bleed/GERD 10/31/25 10/31/25 History
tablet
polyethylene glycol 3350 17 gram 17 g PO HS Constipation 10/31/25 10/31/25 History
oral powder packet
sodium phosphates 19 gram-7 118 ml WA ONCE PRN constipation if 10/31/25 10/31/25 History
gram/118 mL enema (Fleet Enema) dulcolax ineffective after 24 hrs
tramadol 50 mg tablet 50 mg PO [id number] PRN moderate pain 10/31/25 10/31/25 History
Review of Systems
-
Unable to obtain full review of systems at this time due to: Acuity and Patient Intubation
Physical Exam
Vital Signs
Vital Signs
Temp Pulse Resp BP Pulse Ox
97.7 F 68 28 112/72 100
10/31/25 15:05 10/31/25 15:00 10/31/25 15:00 10/31/25 12:45 10/31/25 15:00
Lab Results
Sodium 134 mmol/L (135-145) L 10/31/25 06:51
Potassium 3.1 mmol/L (3.5-5.1) L 10/31/25 06:51
Chloride 98 mmol/L (98-107) 10/31/25 06:51
Carbon Dioxide 18 mmol/L (22-30) L 10/31/25 06:51
BUN 43 mg/dl (9-20) H 10/31/25 06:51
Creatinine 6.8 mg/dL (0.7-1.3) H* 10/31/25 06:51
eGFR 9.08 10/31/25 06:51
Glucose 184 mg/dl (70-99) H 10/31/25 06:51
Calcium 6.5 mg/dl (8.4-10.2) L* 10/31/25 06:51
Albumin 3.0 g/dl (3.5-5.0) L 10/31/25 06:51
Data Reviewed
-
CT Scan: Image Personally Visualized and interpreted
Labs: Labs Reviewed by me, Discussed with Physician and Discussed with Nurse
Assessment/Plan
-
Impression:
End-stage renal disease.
ischemic bowel status post resection 10/30/25
shock
AV graft
GI bleed
Anemia.
Chronic hypotension on midodrine support
Hyperphosphatemia.
mechanical aortic valve on chronic anticoagulation
AFib. Severe tricuspid regurgitation and severe pulmonary hypertension, heart failure reduced ejection fraction 45%
Plan:
no acute need for dialysis today From a volume or electrolyte standpoint although concern about tomorrow's dialysis and conventional dialysis and being able to be tolerated.
unless we see a significant improvement in his pressor requirements , I anticipate he will need [employer]
we will follow throughout the evening including his lactate and chemistries. Low threshold to initiate [employer] today if prognosis worsens
discussed with all physicians involved in his care

33 minutes critical care time
[2025-10-31 16:53] LABS: Hematocrit 30.7 % (39.0-52.0); Hemoglobin 10.4 g/dL (13.0-18.0); Mean Corp Hgb Conc. 33.9 g/dL (33.0-37.0); Mean Corpuscular Volume 84.8 fL (80.0-94.0); Platelet Count 280 10^3/uL (130-400); Red Cell Dist. Width 17.2 % (11.5-14.5)
[2025-10-31 17:05] LABS: APTT 74.0 Sec (23.4-35.0)
[2025-10-31 17:13] LABS: ALT (SGPT) 18 U/L (0-50); AST (SGOT) 36 U/L (17-59); Albumin 2.9 g/dl (3.5-5.0); Alkaline Phosphatase 70 U/L (38-126); Blood Urea Nitrogen 51 mg/dl (9-20); Calcium 6.7 mg/dl (8.4-10.2); Carbon Dioxide 15 mmol/L (22-30); Chloride 99 mmol/L (98-107); Estimated Creatinine Clearance 14 ml/min; Glucose 113 mg/dl (70-99); Potassium 3.7 mmol/L (3.5-5.1); Sodium 130 mmol/L (135-145); Total Protein 6.5 g/dl (6.3-8.2); eGFR 8.77
--- NOTE | 2025-10-31 17:34 | PTCARENOTE ---
Reassessed this evening. Patient waking up, is alert and following commands. Reports pain; Prn IVP fentanyl provided. Adjusted sedation and analgesia gtts; refer to work list. Remains on pressors: Levo & Pio for MAP >65. Sp02 99-100%. NSR vs
accelerated junctional rhythm, heart rates 60-70s. Dr. Hood and Dr. Zelaya aware of critical calcium.
[2025-10-31 20:20] LABS: B.E. -5.8 mmol/L; HCO3 17.3 mmol/L (21-28); O2 Saturation % 99.0 % (94-98); PCO2 26 mmHg (35-48); PO2 159 mmHg (83-108); Potassium 3.8 mMOL/L (3.5-5.1); Sodium 129 mMOL/L (136-145)
[2025-10-31] MEDS: LEVOPHED 258 MG IV (21:26)
[2025-10-31] MEDS: CALCIUM CHLORIDE 10% SYRINGE 60 MG IV (21:30)
[2025-10-31] MEDS: NEO-SYNEPHRINE 1% 260 MG IV (21:30)
[2025-10-31 23:16] LABS: APTT 80.6 Sec (23.4-35.0)
[2025-11-01] VITALS (19 sets, daily range): BP systolic 60–171; BP diastolic 48–67; BMI 29.9
[2025-11-01] MEDS: SUBLIMAZE 100 IV ×3 (00:31→16:54)
--- NOTE | 2025-11-01 01:00 | PTCARENOTE ---
Pt received at 19:00. Remains intubated and sedated on propofol/fentanyl. Opens eyes, nods y/n appropriately, follows simple commands at times. Anxious at times when awake, reaches for ETT--restraints remain in place. Pupils 2mm and sluggish. Afib
w/ BBB, 60s-70s. R radial saulo zeroed and transduced, correlating w/ cuff pressure. On levo and cash gtts, titrated per worklist--order changed from MAP goal >65 to SBP >90. #8 ETT, 25cm on the repositioned from L to R. AC 16/500/40%/+5. Coarse
breath sounds t/o, pulse ox 97-100%. Thick dubose/brown secretions via ETT, thick white/dubose secretion orally. NGT to LIWS, minimal dark brown output. Bowel sounds absent. Abthera wound vac remains present as ordered--serosanguineous. Safe environment
maintained, call garg within reach, pt repositioned q2h.
[2025-11-01] MEDS: SUBLIMAZE 50 MCG IV ×7 (02:45→19:46)
[2025-11-01] MEDS: LEVOPHED 258 MG IV ×5 (02:48→22:39)
[2025-11-01] MEDS: FLAGYL 500 MG 100 IV ×3 (02:48→18:30)
[2025-11-01 04:25] LABS: B.E. -5.8 mmol/L; HCO3 17.5 mmol/L (21-28); O2 Saturation % 99.4 % (94-98); PCO2 27 mmHg (35-48); PO2 158 mmHg (83-108); Potassium 4.0 mMOL/L (3.5-5.1); Sodium 130 mMOL/L (136-145)
[2025-11-01 04:45] LABS: Hematocrit 27.9 % (39.0-52.0); Hemoglobin 9.9 g/dL (13.0-18.0); Mean Corp Hgb Conc. 35.5 g/dL (33.0-37.0); Mean Corpuscular Volume 82.1 fL (80.0-94.0); Platelet Count 278 10^3/uL (130-400); Red Cell Dist. Width 16.5 % (11.5-14.5)
--- NOTE | 2025-11-01 04:47 | PTCARENOTE ---
Pt anuric at baseline, provider made aware, andre removed.
[2025-11-01 04:52] LABS: INR 1.32; PT 16.2 Sec (11.4-14.6)
[2025-11-01 04:54] LABS: APTT 65.3 Sec (23.4-35.0)
[2025-11-01] MEDS: CALCIUM GLUCONATE 290 MG IV (05:15)
[2025-11-01 06:02] LABS: Blood Urea Nitrogen 59 mg/dl (9-20); Calcium 7.0 mg/dl (8.4-10.2); Carbon Dioxide 15 mmol/L (22-30); Chloride 100 mmol/L (98-107); Estimated Creatinine Clearance 13 ml/min; Glucose 98 mg/dl (70-99); Potassium 3.9 mmol/L (3.5-5.1); Sodium 132 mmol/L (135-145); eGFR 8.20
[2025-11-01] MEDS: DIPRIVAN 100 IV ×4 (06:10→21:42)
--- NOTE | 2025-11-01 07:00 | PTCARENOTE ---
Received pt in Contact isolation, Left upper extremity precautions & aspiration precautions. He opened his to verbal and tactile stimuli. He is able to follow simple commands, mouth two word responses and nod head appropriately. PERRLA +2. L/E trace
edema. Doppler DP/PT pulses. Weak radial pulses. Left AV fistula + bruit, NO thrill palpated. Right IJ TL CVC with dressing CDI. Distal port capped, flushed and patent. Norepinephrine, Phenylephrine infusing via proximal port. Medial port with
Fentanyl & Propofol drips. See work list for drip dosages. Right radial 20g arterial line transduced, calibrated and monitored with all ports patent and secured, correlates to right FA cuff pressure. Dressing CDI. #8 ETT secured 25cm centered @ lip.
Tolerating AC 16/500/.40/+5. Breath sounds CTA posteriorly. Absent BSX4. AB-thera wound vac maintained @75mmHg to open abdominal incision. Draining serous fluid. Right Nare [place] sump secured 80cm connected to LIWS. Draining brown secretions.
Flushed, however very difficult to flush. 60cc air injected into the ARV with improved drainage of secretions. Anuric. Knee-hi SCD's intact. Safe environment maintained. Pt was informed of the plan of care to have better pain control, to have access
placed for CRRT, and back t the OR with Dr. Denney. He nodded his head in understanding> safe environment maintained. He is also aware that Dr. Sanchez was going to update his family regarding the plan of care.
--- NOTE | 2025-11-01 07:19 | W.PN.ANS.POP ---
Anesthesia Post Operative
- Anesthesia Post Op Note
Vital Signs Stable-See Nursing Note: Yes
Airway Patent: Yes
Adequate Pain Control: Yes
Change in Mental Status: No (intubated/sedated)
Current Postoperative Nausea & Vomiting: No
Anesthesia Complications: No
General Anesthetic Recall: No
Unplanned Admission: No
Post Op Hydration Adequate: Yes
[2025-11-01] MEDS: NEO-SYNEPHRINE 1% 260 MG IV (07:36)
--- NOTE | 2025-11-01 07:51 | W.PN.HOSP.TC ---
Today's Communication/Plan
-
see plan
Assessment / Plan
Assessment / Plan
Gen: NAD, NCAT
Eyes: EOMI, no scleral icterus
CV: irreg/irreg, +S1/S2, no m/r/g.
Resp: remains CTAB anteriorly, no rales, wheezes, or rhonchi.
Abd: absent BS, diffuse tenderness to light palpation with guarding, mod distention, soft
Skin: No rashes.
Neuro: CN2-12 intact
10/31/25 12:35 Sputum Gram Stain - Preliminary
CT A/P:
Mild small bowel dilatation suggesting ileus versus early or partial small bowel obstruction. New. Associated pneumatosis and mesenteric venous gas suggesting ischemia. New
Mild airspace disease in the right lower lung field concerning for pneumonia. Atelectasis not excluded. New
Moderate left lower lobe atelectasis versus scarring. Developing pneumonia not excluded. New
Rectal wall thickening concerning possible right-sided renal mass and proctitis. New.
Nodular hepatic margin suggesting cirrhosis. Stable
Mild ascites about the liver. New
Bilateral renal atrophy. Stable
Moderate cardiomegaly. Stable
Septic shock due to SBO causing ischemic bowel:
-INR reversed on admission with Vit K and prothrombin complex
-s/p 10/31AM exploratory laparotomy, small bowel resection, placement of temporary abdominal closure device by Dr. Denney. Note, as per OR report, '90cm frankly necrotic mid small bowel resected; 2 areas of patchy ischemia in proximal jejunum each
encompassing ~50% circumference, this area exhibited signs of peristalsis and was left in situ.'
-to return to OR today
-cont sedation with propofol/fentanyl
-cont vasopressors Levophed/Pio gtts
-remain intubated today, vent settings AC 500/16/5/40%
-cont Vanco/Rocephin/Flagyl as per ID
-currently on Octreotide SC Q12H
h/o SJM Mechanical MVR 1997:
-was on heparin gtt, now on hold for OR (since 729)
Other problems:
ESRD: c/s renal for HD
Permanent Afib: heparin gtt on hold for OR. Cont Dig.
Severe TR
Anemia of chronic renal disease: trend Hb
h/o ICD explant due to infection 2005
h/o CVA
Chronic HFrEF with recovered EF, now EF 45-50% on most recent echo: daily wts, I/Os
Hypokalemia, resolved
Hyponatremia, mild
Hypocalcemia, replete but time away from Rocephin
Total critical care time = 34 min
Anticipated Discharge: > 48 hours
Subjective/Interval History
-
Date of Service: November 01, 2025
Intubated/sedated but opens eyes and gestures during physical exam.
Objective Data
-
Labs:
Laboratory Results
10/31/25 10/31/25 11/01/25
20:13 22:54 04:13
WBC 19.8 H
Hgb 9.9 L
Hct 27.9 L
Plt Count 278
PT 16.2 H
INR 1.32
APTT 80.6 H 65.3 H
HCO3 17.3 L 17.5 L
Sodium 132 L
Potassium 3.9
Chloride 100
Carbon Dioxide 15 L
BUN 59 H
Creatinine 7.4 H*
Glucose 98
Calcium 7.0 L
Vital Signs:
Vital Signs
Temp Pulse Resp BP Pulse Ox
98.6 F 80 26 115/74 100
11/01/25 03:19 11/01/25 05:45 11/01/25 05:45 10/31/25 22:51 11/01/25 06:13
I&O
10/31/25 11/01/25 11/02/25
06:59 06:59 06:59
Intake Total 4009.0 / 4009.0
Output Total 575 / 575
Balance 3434.0 / 3434.0
[2025-11-01] MEDS: PITRESSIN 100 IV ×2 (09:20→17:23)
--- NOTE | 2025-11-01 09:30 | PTCARENOTE ---
Discussed the plan of care with Dr. Denney, Tamera CONN and Dr Hood. Unknown OR time. Will continue to hold Heparin drip as ordered. Will start Vasopressin as ordered after clarified the order. Ordered labs sent. Will flush Right Nare [place]
sump as ordered, maintained on LIWS.
--- NOTE | 2025-11-01 10:18 | W.PN.ID1 ---
Date of Service
Date of Service: November 01, 2025
Today's Communication
- plan for possible CRRT today
- c/w ceftriaxone 2 gm IV q24
- c/w metronidazole at 500 mg IV q8 for present
- c/w vancomycin - Enterococcal coverage
- possible rectal mass seen on CT a/p - eventual assessment
Assessment / Plan
Septic Shock
Ischemic Bowel
Possible Pneumonia - less likely per pulmonary due to mechanics
COPD
Cirrhosis
Mechanical MV
ESRD on HD possible switch to CRRT
Reported Allergy to Zosyn if tolerates amoxicillin likely not a real allergy
- blood cultures x2 in progress no growth to date
- sputum culture with C albicans normal mook
- will follow up OR findings
- plan for possible CRRT today
- c/w ceftriaxone 2 gm IV q24
- c/w metronidazole at 500 mg IV q8 for present
- c/w vancomycin - Enterococcal coverage
- possible rectal mass seen on CT a/p - eventual assessment
- may eventually consider a challenge with unasyn given report of tolerating amoxicillin when patient is persistently stabilized
patient remains critically ill without significant improvement thus far
Chief Complaint
-: Leukocytosis
Subjective / Review of Systems
remains afebrile
ongoing need for norepi currently with increasing dose to 28 mcg/min, phenylephrine 140 mcg/min, vaso on
pending the OR today - tentatively
Vital Signs / Physical Exam
Vital Signs
Vital Signs
Temp Pulse Resp BP Pulse Ox
98.2 F 81 22 171/67 100
11/01/25 08:03 11/01/25 09:49 11/01/25 09:49 11/01/25 09:49 11/01/25 09:49
Physical Exam
Constitutional: Acutely Ill
Cardiovascular: Regular Rate and S1/S2; Negative Murmur or Rub
Pulmonary: Clear and Symmetric; Negative Wheezes or Rales
Gastrointestinal: Soft, Non Tender, Non Distended and Normal Bowel Sounds
Skin: Warm and Dry; Negative Rash or Jaundice
Wound: Other (wound vac in place)
Neurological: Negative Awake or Alert
Objective Data
Lab Data
Lab Results
11/01/25 04:13
11/01/25 04:13
PT 16.2 Sec (11.4-14.6) H 11/01/25 04:13
INR 1.32 11/01/25 04:13
APTT 65.3 Sec (23.4-35.0) H 11/01/25 04:13
Estimated Creat Clear 13 ml/min 11/01/25 04:13
Lactic Acid 3.0 mmol/L (0.7-2.0) H 11/01/25 09:37
Total Bilirubin 3.1 mg/dl (0.2-1.3) H 10/31/25 16:42
AST 36 U/L (17-59) 10/31/25 16:42
ALT 18 U/L (0-50) 10/31/25 16:42
Alkaline Phosphatase 70 U/L (38-126) 10/31/25 16:42
Most recent labs reviewed.
Micro Results:
10/31/25 12:35 Respiratory Culture - Preliminary
Sputum Jessica albicans
Gram Stain - Preliminary
10/31/25 12:40 Blood Culture - Pending
Blood/Venous
10/31/25 12:10 Blood Culture - Pending
Blood/Venous
--- NOTE | 2025-11-01 10:29 | CM ---
Addendum entered by Jess Salmon 11/01/25 12:54:
Spoke with Dr. Deal at palliative care. Spoke with Heritage Flores Baird and told that Daisha his brother is the main contact.
OB call to brother Daisha [phone] and he spoke with the surgeon yesterday about stopping the procedure and attempting OR again today. No questions at this time . TT to Dr. Deal regarding Daisha being his main contact
Original Note:
Chart reviewed. in ICU intubated and sedated on pressors
DC over 48 hours
--- NOTE | 2025-11-01 10:56 | W.PN.INTV ---
Today's Communication / Plan
Recommendations
Continue mechanical ventilation without change
Continue Levophed/Pio-Synephrine will add vasopressin
Check cortisol levels
Continue antibiotic
Follow cultures
Interventional radiology consulted for HD line placement
Eventual CRRT later today
Discussed with surgery-plan for exploration of the abdomen today due to worsening shock
Remains n.p.o.
Head of the bed elevation
Prognosis is guarded
Assessment
-
-
50-year-old man with a recent history of GI bleed, he was transferred in early October to [facility]-underwent enteroscopy with ablation of bleeding. He was discharged about 2 days ago to his intermediate.
He reported ongoing abdominal pain before and after discharge. Admitted to [facility] 10/31/2025 with severe abdominal pain. Found to have bowel ischemia underwent exploratory laparotomy emergently-transferred to the critical care unit
intubated and on multiple pressors.
Septic [id number] source
CT of the abdomen pelvis showing fluid-filled dilated small bowel loops measuring up to 3.1 cm with transition point in the right lower quadrant reflecting small bowel obstruction likely due to underlying adhesions, there is extensive small bowel
pneumatosis as well as mesenteric venous gas reflecting bowel ischemia. Scattered abdominal free fluid.
Hypoxemic respiratory failure postoperatively.
Bowel ischemia-status post exploratory laparotomy 10/30/2024
90cm frankly necrotic mid small bowel resected; 2 areas of patchy ischemia in proximal jejunum each encompassing ~50% circumference, this area exhibited signs of peristalsis and was left in situ
Coumadin coagulopathy-status post reversal
History of aortic valve replacement
Conditions present prior admission:
End-stage renal disease on hemodialysis
Heart failure with reduced ejection fraction
Pulmonary hypertension-possibly postcapillary. Post mitral valve disease.
Type 2 diabetes
Hyperlipidemia
Atrial fibrillation
Hypothyroidism
Chronic anticoagulation status post mitral valve- mechanical
Obstructive sleep apnea
GERD
halfway resident
Recent GI bleed-transferred to [facility] for enteroscopy and ablation of small bowel bleeding. 10/2025
Assessment and plan:
Patient is critically ill, complex situation due to multiple comorbidities.
-
Septic shock due to intra-abdominal source
Currently on Levophed and Pio-Synephrine.
Hemodynamics borderline
Vasopressin will be added
Epinephrine will be restarted if continues to have hemodynamic instability.
-
Lactic acid elevated at 4.3>>>>3.0
[address] in place
S/p fluid resuscitation-at risk for volume overload due to underlying chronic kidney disease.
([id number] has LVEF of 45 to 50%/prosthetic mitral valve/dilated and hypokinetic right ventricle with severe pulmonary hypertension similar to September 2024.).
Obtain random cortisol level. May benefit from stress dose of steroids.
-
Part of the hypotension may be from metabolic acidosis from underlying chronic kidney disease. He was not dialyzed yesterday.
Will require CRRT due to hemodynamic instability-to be started today. Hopefully as acidosis improves hemodynamics also will improve.
Discussed with nephrology-hemodialysis catheter will be placed per
IR was consulted by me.
-
Chest x-ray also with patchy bilateral abnormalities: Pulmonary edema versus pneumonia versus chronic changes
No recent CT chest available
Continue antibiotics for intra-abdominal process.
Doubt pneumonia based on pulmonary mechanics
40% FiO2 and pulmonary mechanics not consistent with reduced compliance
Will continue to follow for now
-
Case discussed with surgery/primary team
Wound VAC in place
Given worsening hemodynamics-patient is going back to the OR for exploration. Rule out ongoing necrotic tissue.
Definitely he has some component of secondary peritonitis.
Follow cultures
Continue antibiotics
-
With mechanical mitral valve -anticoagulation will need to be restarted when safe.
Currently on hold as the patient is going to the OR.
High risk situation
-
Mechanical ventilation settings reviewed
Pulmonary mechanics acceptable-peak pressure trending higher/plateau-decrease pulmonary compliance. Suspect some degree of volume, hopefully dialyzed today
FiO2 is 40%
ET tube with no secretion
ABG 7.40 (11/01/2025)
Continue mechanical ventilation status without change
Continue sedation.
-
Chronic kidney disease: On hemodialysis
Nephrology to follow-case discussed
CRRT as above
-
Monitor blood sugars
Insulin sliding scale
-
Chronic anemia: Due to chronic kidney disease and also sepsis.
Stable so far
Will transfuse as necessary
-
N.p.o.
Head of the bed elevation
Protonix for GI prophylaxis
Anticoagulation to be restarted.
-
Agree with palliative care consultation
It is noted that the patient did not want family to be notified about condition based on previous conversation with surgery.
-
Critical care statement: A total of 50 minutes of critical care time was provided for this patient today. This includes management of unstable vital signs, evaluation of the patient at bedside, reviewing the patient's pertinent medical records
including ventilator settings, arterial blood gases, radiographs, microbiology, laboratory evaluations and discussion with primary team, critical care nursing, and respiratory therapy.
Subjective Dataa
Subjective Data
Date of Service:
Date of Service: November 01, 2025
Chief Complaint: Pacu Nurse Follow Up (Septic shock/hypoxemic respiratory failure requiring intubation mechanical ventilator)
Subjective:
Sedated
On mechanical ventilation
On multiple pressors critically ill
Unable to provide history
Review of Systems
General: Unobtainable - Sedation
Objective Data
Data Reviewed
Vital Signs / I&O / Oxygen:
Vital Signs
Temp Pulse Resp BP Pulse Ox
98.2 F 89 18 171/67 100
11/01/25 08:03 11/01/25 10:30 11/01/25 10:30 11/01/25 09:49 11/01/25 10:30
Intake and Output
10/31/25 11/01/25 11/02/25
06:59 06:59 06:59
Intake Total 4009.0 / 4111.8 453.1 / 453.1
Output Total 575 / 575
Balance 3434.0 / 3536.8 453.1 / 453.1
SaO2 [A/C] 94
SaO2 100
Nasal Cannula flow liters per 4
minute
Physical Exam
General: Comfortable
HEENT: Normocephalic and Other (ET tube in place without secretion)
Cardiovascular: S1-S2
Respiratory: Clear and Non-Labored Respirations
GI: Distended, Other (NG tube in place) and Other (Open abdominal wound, absent bowel sounds)
Neurology: Other ( on mechanical ventilation, sedated able to move 4 extremities. Follows commands with sedation breaks.)
Labs/Micro/Reports
Lab Data
11/01/25 04:13
11/01/25 04:13
Laboratory Results
10/31/25 10/31/25 10/31/25
10:11 16:42 20:13
PT
INR
APTT Cancelled 74.0 H
pH 7.43
pCO2 26 L
pO2 159 H
HCO3 17.3 L
O2 Delivery Level
10/31/25 11/01/25
22:54 04:13
PT 16.2 H
INR 1.32
APTT 80.6 H 65.3 H
pH 7.42
pCO2 27 L
pO2 158 H
HCO3 17.5 L
O2 Delivery Level
Microbiology
10/31/25 12:35 Sputum Respiratory Culture - Preliminary
Jessica albicans
10/31/25 12:35 Sputum Gram Stain - Preliminary
--- NOTE | 2025-11-01 10:59 | W.PN.GS2 ---
Today's Communication / Plan
-
return to OR
Assessment / Plan
-
50M POD 1 s/p ex lap and small bowel resection for necrotic and ischemic bowel, in discontinuity with abthera vac closure
Pt remains critically ill with increasing pressor requirements
Nephrology following given h/o ESRD, may need CRRT
WBC trending up
Plan:
Heparin on hold for plan to RTOR today
Intensive care management as per learning and development director
Subjective Data
-
Date of Service: November 01, 2025
Pt seen and examined at bedside with Dr. Denney. Bottler Helper and primary RN present. Comfortable at rest but c/o pain when awakened.
Objective Data
-
Intake and Output
10/31/25 11/01/25 11/02/25
06:59 06:59 06:59
Intake Total 4009.0 / 4111.8 453.1 / 453.1
Output Total 575 / 575
Balance 3434.0 / 3536.8 453.1 / 453.1
Intake:
Oral fluids 0 / 0
IV fluids (Total) 3099.0 / 3201.8 423.1 / 423.1
Epi 127.6 / 127.6
Fent 147.5 / 160.0 57.5 / 57.5
Heparin 180 / 180 0 / 0
Levo 1356.0 / 1404.8 202.6 / 202.6
Lr 1,000 ml @ 40 mls/hr IV . 520 / 520
Q24H VLADIMIR Rx#:[id number]
Pio 546 / 570 93 / 93
Prop 221.9 / 239.4 70.0 / 70.0
IV piggybacks 860 / 860
Amount instilled into GI Tube ( 50 / 50 30 / 30
Total)
[place] Sump 50 / 50 30 / 30
Output:
Drain Output (Total) 475 / 475
Throughout Abdomen Wound Vac 475 / 475
Gastrointestinal tube output ( 100 / 100
Total)
[place] Sump 100 / 100
Urine, Andre 0 / 0
Vital Signs
Temp Pulse Resp BP Pulse Ox
98.2 F 89 18 171/67 100
11/01/25 08:03 11/01/25 10:30 11/01/25 10:30 11/01/25 09:49 11/01/25 10:30
Lab Results
11/01/25 04:13
11/01/25 04:13
Calcium 7.0 mg/dl (8.4-10.2) L 11/01/25 04:13
Magnesium 1.7 mg/dl (1.6-2.3) 10/31/25 06:51
Total Bilirubin 3.1 mg/dl (0.2-1.3) H 10/31/25 16:42
Direct Bilirubin 2.1 mg/dl (0.0-0.4) H 10/31/25 06:51
AST 36 U/L (17-59) 10/31/25 16:42
ALT 18 U/L (0-50) 10/31/25 16:42
Alkaline Phosphatase 70 U/L (38-126) 10/31/25 16:42
Total Protein 6.5 g/dl (6.3-8.2) 10/31/25 16:42
Albumin 2.9 g/dl (3.5-5.0) L 10/31/25 16:42
Physical Exam
-
Gen: intubated/sedated
Abd: abthera in place and functioning, light ss fluid draining
Patient has a andre catheter: Yes
Patient has a central line: Yes
--- NOTE | 2025-11-01 11:14 | PHA.VAN.FU ---
Vancomycin Assessment / Plan
- Assessment
Hemodialysis Schedule: MWF (possible CRRT starting on 11.01)
WBC's are: Trending Up
In the past 24 hrs, patient has been: Afebrile
Concomitant Antimicrobials: ceftriaxone, flagyl
- Assessment - Therapeutic Drug Monitoring
Random Level: R=19.6 approx. 15 hrs after LD
- Dosing Plan
Dosing by Level: Hold off on dosing today
- Monitoring Plan
Random Level: 12.27 @0600
- Follow Up
Pharmacy will continue to follow.
Vancomycin Follow UP
- -
Patient Age: 50
Patient Sex: Male
Vancomycin Day #: 2
Indication: Pulmonary/Respiratory
Requesting Provider: ERICA ROONEY
Pertinent Antimicrobial Allergies:
PIP/TAZO=ITCHING, tolerates amoxicillin and cepharlosporins
Height / Weight:
Height 6 ft
Actual Weight 99.926 kg
Pertinent Past Medical History: ESRD on dilaysis MWF, COPD, DM, chronic respiratory failure, [place] resident
- Vital Signs / Lab Results
Temp Pulse Resp BP Pulse Ox
98.2 F 89 18 171/67 100
11/01/25 08:03 11/01/25 10:30 11/01/25 10:30 11/01/25 09:49 11/01/25 10:30
Lab Results - Hematology
10/31/25 10/31/25 10/31/25
00:06 06:51 16:42
WBC 22.4 H 14.2 H 16.0 H
Band Neutrophils 47 H
11/01/25
04:13
WBC 19.8 H
Band Neutrophils
Lab Results - Chemistry
10/31/25 10/31/25 10/31/25
00:06 06:51 16:42
BUN 39 H 43 H 51 H
Creatinine 7.1 H* 6.8 H* 7.0 H*
Estimated Creat Clear 14 14
Albumin 3.8 3.0 L 2.9 L
11/01/25
04:13
BUN 59 H
Creatinine 7.4 H*
Estimated Creat Clear 13
Albumin
10/31/25 10/31/25 10/31/25
00:06 00:15 06:51
Lactic Acid 2.8 H Cancelled 4.3 H*
10/31/25 10/31/25 11/01/25
16:42 20:13 02:16
Lactic Acid 2.7 H 3.3 H 3.4 H
11/01/25 11/01/25
05:57 09:37
Lactic Acid 3.5 H 3.0 H
Microbiology Results
10/31/25 12:35 Respiratory Culture - Preliminary
Sputum Jessica albicans
Gram Stain - Preliminary
Therapeutic Drug Monitoring
Random Vancomycin 19.6 ug/ml 11/01/25 04:13
[2025-11-01] MEDS: FLORINEF PO (11:27)
[2025-11-01 11:30] LABS: Cortisol, Random 69.5 ug/dl
[2025-11-01] MEDS: SANDOSTATIN 100 MCG SC ×2 (11:39→19:46)
[2025-11-01] MEDS: STERILE WATER FOR INJECTION 20 ML IV (11:40)
[2025-11-01] MEDS: ROCEPHIN 2000 MG IV (11:40)
--- NOTE | 2025-11-01 13:50 | W.PN.NEPH.PH ---
Today's Communication / Plan
-
ASSISTANT WOMEN'S TENNIS COACH
Assessment/Plan
-
Impression:
End-stage renal disease.
ischemic bowel status post resection 10/30/25
shock
AV graft
GI bleed
Anemia.
Chronic hypotension on midodrine support
Hyperphosphatemia.
mechanical aortic valve on chronic anticoagulation
AFib. Severe tricuspid regurgitation and severe pulmonary hypertension, heart failure reduced ejection fraction 45%
Plan:
continues to require pressor support x3
lactate stable
pending OR
will initiate ASSISTANT WOMEN'S TENNIS COACH today via IR dialysis catheter placement as discussed with critical care
prognosis guarded
see orders

33 minutes critical care time
-
-
Date of Service: November 01, 2025
CC / HPI / ROS
-
Chief Complaint:
septic shock
History of Present Illness:
ischemic bowel septic shock and chronic dialysis
Review of Systems:
intubated
Labs
-
Labs:
WBC 19.8 10^3/uL (4.8-10.8) H 11/01/25 04:13
RBC 3.40 10^6/uL (4.70-6.10) L 11/01/25 04:13
Hgb 9.9 g/dL (13.0-18.0) L 11/01/25 04:13
Hct 27.9 % (39.0-52.0) L 11/01/25 04:13
Plt Count 278 10^3/uL (130-400) 11/01/25 04:13
Sodium 132 mmol/L (135-145) L 11/01/25 04:13
Potassium 3.9 mmol/L (3.5-5.1) 11/01/25 04:13
Chloride 100 mmol/L (98-107) 11/01/25 04:13
Carbon Dioxide 15 mmol/L (22-30) L 11/01/25 04:13
BUN 59 mg/dl (9-20) H 11/01/25 04:13
Creatinine 7.4 mg/dL (0.7-1.3) H* 11/01/25 04:13
eGFR 8.20 11/01/25 04:13
Glucose 98 mg/dl (70-99) 11/01/25 04:13
Calcium 7.0 mg/dl (8.4-10.2) L 11/01/25 04:13
Albumin 2.9 g/dl (3.5-5.0) L 10/31/25 16:42
Physical Exam
-
Vital Signs:
Vital Signs
Temp Pulse Resp BP Pulse Ox
99.9 F 75 11 145/60 100
11/01/25 11:37 11/01/25 13:30 11/01/25 13:30 11/01/25 11:27 11/01/25 13:30
--- NOTE | 2025-11-01 13:55 | SUR.OPER ---
Pt to the OR via bed with OR team. Drips per worklist.
--- NOTE | 2025-11-01 14:06 | PTCARENOTE ---
Clarified dialysate with Dr. Zelaya given recent potassium level was 3.9. Will use ordered dialysate for now as ordered. Pt currently in the OR.
--- NOTE | 2025-11-01 14:23 | W.CON.PAL ---
Consultation
-
Date/Time Consultation Requested: 10/31/25
Date/Time Consultation Performed: 11/01/25 11:25am
Requesting Provider: Dr Sanchez
Performing Provider: Dr Deal
Reason for Consult: Goals of Care Discussion
Primary Diagnosis: Ischemic bowel
Related Diagnosis: Septic shock
Consult Requested By: Patient's Physician
Reason for Admission
Functional Status
Pt is a 50yo who resides at [facility] and now s/p ex lap for small bowel resection for necrotic and ischemic bowel with 90cm oscar necrotic small bowel resected. Pt medical hx significant for ESRTD on MWF HD, CHF, S/P AV replacement, hx
of GI bleed, JOVITA who had presented to the ER with 2 day hx of abdominal pain and was found to have small bowel obstruction 2/2 to bowel ischemia as well as significant leucocytosis. Pt was taken emmergently to OR and 90cm oscar necrotic bowel
resected, Pt has however remained critically ill, intubated and sedated in the ICU with increasing pressor requirements. Gen surgery, ID, nephrology actively following. Pt is planned for possible CRRT and has not had any significant improvement
despite aggressive measures.
Palliative care is consulted on account of overwhelming burden of pathology to help with goals of care discussion.
Pt is seen in the ICU, remains intubated, sedated and on pressors, he is unable to provide any history.
Goals of Care Discussion
-
Individuals Present for Discussion & Relationship to Patient:
There is no family at bedside, Brother Daisha called on phone,
Patient able to participate in discussion at time of visit: No
Patient's Information Preferences: Unsure
Patient Goals
Daisha shared that he has had discussions with brother in the past about if he got sicker, as per Daisha, Eloisa is the eldest and they have a sister also, Daisha shared that ' Pt is a fighter' and has shared he would want ' everything done', this makes
it tough for him to choose otherwise even after given information as to possible outcomes of the heroic measures not returning pt to baseline and risks of even more complications without a meaningful recovery, I shared where we are at now clinically
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
fight on' he is however open to continued discussions as patient goes through further planned procedures, he is not at this time ready to focus only on comfort only directed treatments or to agree to any limitations in LST.
Objective Data
-
Objective Data:
Vital Signs
Temp Pulse Resp BP Pulse Ox
99.9 F 75 11 145/60 100
11/01/25 11:37 11/01/25 13:30 11/01/25 13:30 11/01/25 11:27 11/01/25 13:30
Laboratory Results
11/01/25 04:13
11/01/25 04:13
PT 16.2 Sec (11.4-14.6) H 11/01/25 04:13
INR 1.32 11/01/25 04:13
APTT 65.3 Sec (23.4-35.0) H 11/01/25 04:13
Total Protein 6.5 g/dl (6.3-8.2) 10/31/25 16:42
Albumin 2.9 g/dl (3.5-5.0) L 10/31/25 16:42
Palliative Performance Scale
Palliative Performance Scale:
PPS Level Ambulation Activity & Evidence of Disease Self Care Intake Conscious Level
100% Full Normal Activity & Work; Full Intake Full
No Evidence of Disease
90% Full Normal Activity & Work; Full Normal Full
Some Evidence of Disease
80% Full Normal Activity with Effort Full Normal or Full
Some Evidence of Disease Reduced
70% Reduced Unable Normal Job/Work Full Normal or Full
Significant Disease Reduced
60% Reduced Unable Hobby/Housework Occasional Normal or Full or Confusion
Significant Disease Assistance Reduced
50% Mainly Sit/Lie Unable to do Any Work Considerable Normal or Full or Confusion
Extensive Disease Assistance Req'd Reduced
40% Mainly in Bed Unable to do Most Activity Mainly Assistance Normal or Full or Drowsy;
Extensive Disease Reduced +/- Confusion
30% Totally Bed Unable to do Any Activity Total Care Normal or Full or Drowsy;
Bound Extensive Disease Reduced +/- Confusion
20% Totally Bed Bound Unable to do Any Activity Total Care Minimal to Full or Drowsy;
Extensive Disease Sips +/- Confusion
10% Totally Bed Bound Unable to do Any Activity Total Care Mouth Care Drowsy or Coma;
Extensive Disease Only +/- Confusion
0%
PPS Score Level:
Palliative Performance Score Response
Palliative Performance Score Response: 20%
Physical Exam
-
General: Comfortable
HEENT: Normocephalic and Endotracheal Tube in Place
Respiratory: Clear to Auscultation
Cardiac: S1/S2
GI: Distended and Other (abdominal wound with wound vac, BS are absent)
Skin: Warm and Dry
Neuro: Sedated
Assessment / Plan
-
Assessment/Plan:
Pt is a 50yo who resides at [facility] and now s/p ex lap for small bowel resection for necrotic and ischemic bowel with 90cm oscar necrotic small bowel resected.
Palliative care is consulted on account of overwhelming burden of pathology to help with goals of care discussion.
Pt remains critically ill at this time in the ICU remains intubated, sedated and on pressors and is planned for return to OR today and CRRT. At this time no limitations to LST as per family, brother hoping he will fight through this as he has
survived worse situations, understands he is for return to OR so GOC discussion will continue, Palliative will follow.
Care Reviewed
Data Reviewed
Medical Tests: I reviewed
Reviewed with: Family, Nurse and Other (case management)
--- NOTE | 2025-11-01 15:00 | W.IMMPOSTOP ---
Surgical Immed Post Op Note
-
Primary Surgeon: Jumana
Assisting: Braden CONN
Pre-op Diagnosis: Ischemic bowel
Post-op Diagnosis: Same
Procedure Performed: Exploratory laparotomy, small bowel resection
Anesthesia Type: GETA
Specimen / Cultures: jejunum
Estimated Blood Loss: 25cc
Complications: None immediate
Operative Findings: Area of proximal jejunum with 2 black spots re-examined and had progressed, this segment was resected (approx 6cm segment resected approx 20cm distal to ligament of treitz). No other intra-abdominal issues. Abthera replaced.
--- NOTE | 2025-11-01 15:15 | PTCARENOTE ---
Direct back from the OR via bed being bagged. Placed on ventilator AC 16/500/.40/+5 via #8 ETT secured 26cm left lip. Right Nare [place] sump placed on LIWS now secured @ 65cm draining green bilious secretions. Pio & Propofol off on arrival.
Norepinephrine @ 24mcg/min. Vasopressin @ 0.04units/min. Per Dr. Hood Vasopressin tapered to 0.03units/min as ordered. CRRT initiated @ 1642 as ordered. CHG bath provided on return from the OR and repositioned on his left side. Safe environment
maintained. Update provided on the phone to his sister Autumn @ [phone].
[2025-11-01] MEDS: RFP-400 HD Soln (K+ 2 mEq/L) 15000 ML CRRT-IRR (16:41)
[2025-11-01] MEDS: NSS (PRESERVATIVE FREE) 10 ML IV (16:55)
[2025-11-01] MEDS: PROTONIX IV 40 MG IV (16:55)
[2025-11-01] MEDS: ADRENALIN 258 MG IV (17:43)
--- NOTE | 2025-11-01 18:19 | PTCARENOTE ---
TT Dr. Denney & Tamera Parkinson regarding restarting Heparin drip.
--- NOTE | 2025-11-01 19:11 | PTCARENOTE ---
Per Dr. Denney Heparin drip to be restarted 12 hours post-op with no bolus at the previous rate.
[2025-11-01 20:57] LABS: Hematocrit 26.8 % (39.0-52.0); Hemoglobin 9.2 g/dL (13.0-18.0); Mean Corp Hgb Conc. 34.3 g/dL (33.0-37.0); Mean Corpuscular Volume 84.3 fL (80.0-94.0); Platelet Count 311 10^3/uL (130-400); Red Cell Dist. Width 17.3 % (11.5-14.5)
--- NOTE | 2025-11-01 20:58 | PTCARENOTE ---
on assessment pt follows basic commands, nods appropriately, c/o pain, PRN meds given see MAR, AFIB/SR on the monitor, SCDs on, doppler pulses, AC 16/500/40/5, 100%, increased oral secretions noted, R nare NGT at 60cm to LIS, anuric, old L arm
fistula, CRRT running per MD orders.
[2025-11-01 21:02] LABS: APTT 38.8 Sec (23.4-35.0)
[2025-11-01 21:13] LABS: Magnesium 1.7 mg/dl (1.6-2.3)
[2025-11-01] MEDS: CALCIUM GLUCONATE 130 MG IV (21:23)
[2025-11-01] MEDS: MAGNESIUM SULFATE 100 IV (21:24)
[2025-11-01 22:45] LABS: Blood Urea Nitrogen 56 mg/dl (9-20); Calcium 8.3 mg/dl (8.4-10.2); Carbon Dioxide 17 mmol/L (22-30); Chloride 102 mmol/L (98-107); Estimated Creatinine Clearance 17 ml/min; Glucose 158 mg/dl (70-99); Potassium 3.3 mmol/L (3.5-5.1); Sodium 131 mmol/L (135-145); eGFR 11.22
[2025-11-01] MEDS: KCL 100 IV (22:59)
--- NOTE | 2025-11-01 23:23 | PTCARENOTE ---
pt noted to start having increased ectopy, 45 beat run of VTach noted, NUCLEAR MEDICINE MEDICAL DIRECTOR Alvarez Vallejo and made aware and at bedside, PRN meds given see MAR, tolerating CRRT, weaning down on pressors
[2025-11-02] VITALS (14 sets, daily range): BP systolic 104–129; BP diastolic 59–72; BMI 30.3
[2025-11-02] MEDS: RFP-400 HD Soln (K+ 2 mEq/L) 15000 ML CRRT-IRR (00:17)
[2025-11-02 00:59] LABS: Glucose - Point of Care 135 mg/dl (70-99)
[2025-11-02 01:01] LABS: Hematocrit 26.3 % (39.0-52.0); Hemoglobin 9.0 g/dL (13.0-18.0); Mean Corp Hgb Conc. 34.2 g/dL (33.0-37.0); Mean Corpuscular Volume 84.0 fL (80.0-94.0); Platelet Count 310 10^3/uL (130-400); Red Cell Dist. Width 17.3 % (11.5-14.5)
--- NOTE | 2025-11-02 01:12 | PTCARENOTE ---
tongue appears swollen, VENUE MANAGER made aware, pt remains intubated and sedated, no new orders at this time
[2025-11-02 01:18] LABS: APTT 44.1 Sec (23.4-35.0)
[2025-11-02 01:28] LABS: Blood Urea Nitrogen 50 mg/dl (9-20); Calcium 8.9 mg/dl (8.4-10.2); Carbon Dioxide 16 mmol/L (22-30); Chloride 102 mmol/L (98-107); Estimated Creatinine Clearance 18 ml/min; Glucose 144 mg/dl (70-99); Magnesium 3.4 mg/dl (1.6-2.3); Potassium 3.6 mmol/L (3.5-5.1); Sodium 133 mmol/L (135-145); eGFR 12.24
[2025-11-02] MEDS: FLAGYL 500 MG 100 IV ×3 (02:19→18:28)
[2025-11-02] MEDS: SUBLIMAZE 50 MCG IV ×3 (02:52→13:09)
[2025-11-02] MEDS: HEPARIN 25000 UNITS/250 ML IV ×2 (02:54→09:32)
[2025-11-02] MEDS: LEVOPHED 258 MG IV ×4 (03:20→19:18)
[2025-11-02] MEDS: PITRESSIN 100 IV ×3 (03:30→22:22)
[2025-11-02] MEDS: SUBLIMAZE 100 IV ×3 (03:32→19:38)
[2025-11-02] MEDS: DIPRIVAN 100 IV ×4 (04:42→22:22)
[2025-11-02 05:07] LABS: Hematocrit 25.3 % (39.0-52.0); Hemoglobin 8.9 g/dL (13.0-18.0); Mean Corp Hgb Conc. 35.2 g/dL (33.0-37.0); Mean Corpuscular Volume 82.4 fL (80.0-94.0); Platelet Count 307 10^3/uL (130-400); Red Cell Dist. Width 17.2 % (11.5-14.5)
[2025-11-02 05:12] LABS: INR 1.46; PT 17.9 Sec (11.4-14.6)
[2025-11-02 05:13] LABS: APTT 58.4 Sec (23.4-35.0)
[2025-11-02] MEDS: CALCIUM GLUCONATE 130 MG IV ×2 (05:55→17:38)
[2025-11-02 05:59] LABS: Blood Urea Nitrogen 46 mg/dl (9-20); Calcium 8.6 mg/dl (8.4-10.2); Carbon Dioxide 16 mmol/L (22-30); Chloride 103 mmol/L (98-107); Estimated Creatinine Clearance 23 ml/min; Glucose 129 mg/dl (70-99); Magnesium 2.7 mg/dl (1.6-2.3); Potassium 3.6 mmol/L (3.5-5.1); Sodium 134 mmol/L (135-145); eGFR 14.51
--- NOTE | 2025-11-02 06:23 | PTCARENOTE ---
AM labs drawn and resulted, hbg trending down, SOLID WASTE LANDFILL TECHNICIAN made aware
[2025-11-02] MEDS: NSS (PRESERVATIVE FREE) 10 ML IV ×2 (07:29→20:45)
[2025-11-02] MEDS: PROTONIX IV 40 MG IV ×2 (07:29→20:45)
[2025-11-02] MEDS: FLORINEF 0.1 MG PO (07:29)
[2025-11-02] MEDS: SANDOSTATIN 100 MCG SC ×2 (07:55→20:45)
--- NOTE | 2025-11-02 08:00 | W.PN.ANS.POP ---
Anesthesia Post Operative
- Anesthesia Post Op Note
Vital Signs Stable-See Nursing Note: Yes (patient remains on multiple vasopressors and ventilatory support and dialys)
Airway Patent: Yes
Adequate Pain Control: Yes
Change in Mental Status: No
Current Postoperative Nausea & Vomiting: No
Anesthesia Complications: No
General Anesthetic Recall: No
Unplanned Admission: No
Post Op Hydration Adequate: Yes
--- NOTE | 2025-11-02 08:21 | PHA.VAN.FU ---
Vancomycin Assessment / Plan
- Assessment
Hemodialysis Schedule: Other (CRRT STARTED FLOW RATE 1.5L/HR)
- Assessment - Therapeutic Drug Monitoring
Random Level: 10
- Dosing Plan
Dosing by Level: Re-dose today (1500MG)
- Monitoring Plan
Random Level: 11/03 IN AM
- Follow Up
Pharmacy will continue to follow.
Vancomycin Follow UP
- -
Patient Age: 50
Patient Sex: Male
Vancomycin Day #: 3
Indication: Pulmonary/Respiratory
Requesting Provider: ERICA ROONEY
Pertinent Antimicrobial Allergies:
PIP/TAZO=ITCHING, tolerates amoxicillin and cepharlosporins
Height / Weight:
Height 6 ft
Actual Weight 101.2 kg
Pertinent Past Medical History: ESRD on dilaysis MWF, COPD, DM, chronic respiratory failure, [place] resident
- Vital Signs / Lab Results
Temp Pulse Resp BP Pulse Ox
97.2 F 85 16 97/51 100
11/02/25 08:00 11/02/25 06:00 11/02/25 06:00 11/01/25 17:01 11/02/25 08:00
Lab Results - Hematology
10/31/25 10/31/25 10/31/25
00:06 06:51 16:42
WBC 22.4 H 14.2 H 16.0 H
Band Neutrophils 47 H
11/01/25 11/01/25 11/02/25
04:13 20:43 00:49
WBC 19.8 H 21.2 H 20.0 H
Band Neutrophils
11/02/25 11/02/25 11/02/25
04:50 06:00 06:45
WBC 20.0 H Cancelled Cancelled
Band Neutrophils
Lab Results - Chemistry
10/31/25 10/31/25 10/31/25
00:06 06:51 16:42
BUN 39 H 43 H 51 H
Creatinine 7.1 H* 6.8 H* 7.0 H*
Estimated Creat Clear 14 14
Albumin 3.8 3.0 L 2.9 L
11/01/25 11/01/25 11/02/25
04:13 20:43 00:49
BUN 59 H 56 H 50 H
Creatinine 7.4 H* 5.7 H* 5.3 H*
Estimated Creat Clear 13 17 18
Albumin
11/02/25 11/02/25
04:50 06:00
BUN 46 H Cancelled
Creatinine 4.6 H* Cancelled
Estimated Creat Clear 23 Cancelled
Albumin
10/31/25 10/31/25 10/31/25
00:06 00:15 06:51
Lactic Acid 2.8 H Cancelled 4.3 H*
10/31/25 10/31/25 11/01/25
16:42 20:13 02:16
Lactic Acid 2.7 H 3.3 H 3.4 H
11/01/25 11/01/25 11/01/25
05:57 09:37 13:50
Lactic Acid 3.5 H 3.0 H 2.2 H
11/01/25
18:01
Lactic Acid 1.5
Microbiology Results
10/31/25 12:40 Blood Culture - Preliminary
Blood/Venous No Growth in 24 hours- Final report to follow
10/31/25 12:10 Blood Culture - Preliminary
Blood/Venous No Growth in 24 hours- Final report to follow
10/31/25 12:35 Respiratory Culture - Preliminary
Sputum Jessica albicans
Gram Stain - Preliminary
Therapeutic Drug Monitoring
Random Vancomycin 10.0 ug/ml 11/02/25 04:50
--- NOTE | 2025-11-02 08:40 | W.PN.HOSP.TC ---
Today's Communication/Plan
-
see plan
Assessment / Plan
Assessment / Plan
Gen: NAD, NCAT
Eyes: EOMI, no scleral icterus
CV: RRR, +S1/S2, no m/r/g.
Resp: remains CTAB anteriorly, no rales, wheezes, or rhonchi.
Abd: absent BS, diffuse tenderness to light palpation with guarding, mod distention, wound vac in place, soft
Skin: No rashes.
Neuro: remains CN2-12 intact
10/31/25 12:35 Sputum Respiratory Culture - Final
Jessica albicans
10/31/25 12:35 Sputum Gram Stain - Final
10/31/25 12:40 Blood/Venous Blood Culture - Preliminary
No Growth in 24 hours- Final report to follow
10/31/25 12:10 Blood/Venous Blood Culture - Preliminary
No Growth in 24 hours- Final report to follow
CT A/P:
Mild small bowel dilatation suggesting ileus versus early or partial small bowel obstruction. New. Associated pneumatosis and mesenteric venous gas suggesting ischemia. New
Mild airspace disease in the right lower lung field concerning for pneumonia. Atelectasis not excluded. New
Moderate left lower lobe atelectasis versus scarring. Developing pneumonia not excluded. New
Rectal wall thickening concerning possible right-sided renal mass and proctitis. New.
Nodular hepatic margin suggesting cirrhosis. Stable
Mild ascites about the liver. New
Bilateral renal atrophy. Stable
Moderate cardiomegaly. Stable
Septic shock due to SBO causing ischemic bowel:
-INR reversed on admission with Vit K and prothrombin complex
-s/p 10/31AM exploratory laparotomy, small bowel resection, placement of temporary abdominal closure device by Dr. Denney. Note, as per OR report, '90cm frankly necrotic mid small bowel resected; 2 areas of patchy ischemia in proximal jejunum each
encompassing ~50% circumference, this area exhibited signs of peristalsis and was left in situ.'
-s/p 11/01 return to OR with further bowel resection
-cont sedation with propofol/fentanyl
-cont vasopressors Levophed/Pio/epi gtts
-remain intubated today, vent settings AC 500/16/5/40%
-cont Vanco/Rocephin/Flagyl as per ID
-currently on Octreotide SC Q12H
-discussed with surgery and ID
Other problems:
h/o SJM Mechanical MVR 1998: cont heparin gtt
ESRD: renal following for HD
Permanent Afib: cont heparin gtt/Dig
Severe TR
Anemia of chronic renal disease: trend Hb
h/o ICD explant due to infection 2005
h/o CVA
Chronic HFrEF with recovered EF, now EF 45-50% on most recent echo: daily wts, I/Os
Hypokalemia, resolved
Hyponatremia, mild
Hypocalcemia, resolved
Total critical care time = 32 min
Anticipated Discharge: > 48 hours
Subjective/Interval History
-
Date of Service: November 02, 2025
Intubated/sedated.
Objective Data
-
Labs:
Laboratory Results
11/01/25 11/02/25 11/02/25
20:43 00:49 04:50
WBC 21.2 H 20.0 H 20.0 H
Hgb 9.2 L 9.0 L 8.9 L
Hct 26.8 L 26.3 L 25.3 L
Plt Count 311 310 307
PT 17.9 H
INR 1.46
APTT 38.8 H 44.1 H 58.4 H
Sodium 131 L 133 L 134 L
Potassium 3.3 L 3.6 3.6
Chloride 102 102 103
Carbon Dioxide 17 L 16 L 16 L
BUN 56 H 50 H 46 H
Creatinine 5.7 H* 5.3 H* 4.6 H*
Glucose 158 H 144 H 129 H
Calcium 8.3 L 8.9 8.6
11/02/25 11/02/25 11/02/25
06:00 06:45 08:45
WBC Cancelled Cancelled Pending
Hgb Cancelled Cancelled Pending
Hct Cancelled Cancelled Pending
Plt Count Cancelled Cancelled Pending
PT Cancelled
INR Cancelled
APTT Cancelled Cancelled
Sodium Cancelled
Potassium Cancelled
Chloride Cancelled
Carbon Dioxide Cancelled
BUN Cancelled
Creatinine Cancelled
Glucose Cancelled
Calcium Cancelled
11/02/25 11/02/25
09:00 12:45
WBC Pending
Hgb Pending
Hct Pending
Plt Count Pending
PT
INR
APTT Pending Cancelled
Sodium
Potassium
Chloride
Carbon Dioxide
BUN
Creatinine
Glucose
Calcium
Vital Signs:
Vital Signs
Temp Pulse Resp BP Pulse Ox
97.2 F 89 18 108/72 100
11/02/25 08:00 11/02/25 08:21 11/02/25 08:21 11/02/25 08:21 11/02/25 08:21
I&O
11/01/25 11/02/25 11/03/25
06:59 06:59 06:59
Intake Total 4009.0 / 4111.8 2966.9 / 3130.7 371.5 / 371.5
Output Total 575 / 575 2110 / 2204 242 / 242
Balance 3434.0 / 3536.8 856.9 / 926.7 129.5 / 129.5
[2025-11-02] MEDS: VANCOCIN 530 MG IV (08:43)
--- NOTE | 2025-11-02 08:45 | W.PN.ID1 ---
Date of Service
Date of Service: November 02, 2025
Today's Communication
- will follow up OR findings
- on crrt
- c/w ceftriaxone 2 gm IV q24
- c/w metronidazole at 500 mg IV q8 for present
- c/w vancomycin - Enterococcal coverage
- add micafungin
Assessment / Plan
Septic Shock
Ischemic Bowel
Possible Pneumonia - less likely per pulmonary due to mechanics
COPD
Cirrhosis
Mechanical MV
ESRD on CRRT
Reported Allergy to Zosyn if tolerates amoxicillin likely not a real allergy
- returned to the OR yesterday - awaiting post operative notes - by report further resection of ischemic bowel
- blood cultures x2 in progress no growth to date
- sputum culture with C albicans normal mook
- will follow up OR findings
- on crrt
- c/w ceftriaxone 2 gm IV q24
- c/w metronidazole at 500 mg IV q8 for present
- c/w vancomycin - Enterococcal coverage
- add micafungin
- possible rectal mass seen on CT a/p - eventual assessment
- may eventually consider a challenge with unasyn given report of tolerating amoxicillin when patient is persistently stabilized
patient remains critically ill without significant improvement thus far
Chief Complaint
-: Leukocytosis
Subjective / Review of Systems
hypothermic on core T overnight
remain on epi 3 mcg/min - lower, norepi 28 mcg/min, phenylephrine 90 mcg/min
by verbal report there was further ischemic bowel and some further resection
Vital Signs / Physical Exam
Vital Signs
Vital Signs
Temp Pulse Resp BP Pulse Ox
97.2 F 89 18 108/72 100
11/02/25 08:00 11/02/25 08:21 11/02/25 08:21 11/02/25 08:21 11/02/25 08:21
Physical Exam
Constitutional: Acutely Ill
Cardiovascular: Regular Rate and S1/S2; Negative Murmur or Rub
Pulmonary: Clear and Symmetric; Negative Wheezes or Rales
Gastrointestinal: Soft, Non Tender, Non Distended and Normal Bowel Sounds
Skin: Warm and Dry; Negative Rash or Jaundice
Objective Data
Lab Data
Lab Results
11/02/25 06:00
PT Cancelled 11/02/25 06:00
INR Cancelled 11/02/25 06:00
APTT Cancelled 11/02/25 12:45
Estimated Creat Clear Cancelled 11/02/25 06:00
Lactic Acid 1.5 mmol/L (0.7-2.0) 11/01/25 18:01
Total Bilirubin 3.1 mg/dl (0.2-1.3) H 10/31/25 16:42
AST 36 U/L (17-59) 10/31/25 16:42
ALT 18 U/L (0-50) 10/31/25 16:42
Alkaline Phosphatase 70 U/L (38-126) 10/31/25 16:42
Most recent labs reviewed.
Micro Results:
10/31/25 12:35 Respiratory Culture - Final
Sputum Jessica albicans
Gram Stain - Final
10/31/25 12:40 Blood Culture - Preliminary
Blood/Venous No Growth in 24 hours- Final report to follow
10/31/25 12:10 Blood Culture - Preliminary
Blood/Venous No Growth in 24 hours- Final report to follow
Care Review
Plan reviewed with: Physician (Dr Joyner - OR findings)
[2025-11-02 09:13] LABS: Hematocrit 24.5 % (39.0-52.0); Hemoglobin 8.6 g/dL (13.0-18.0); Mean Corp Hgb Conc. 35.1 g/dL (33.0-37.0); Mean Corpuscular Volume 82.2 fL (80.0-94.0); Platelet Count 298 10^3/uL (130-400); Red Cell Dist. Width 17.1 % (11.5-14.5)
[2025-11-02 09:24] LABS: APTT 97.5 Sec (23.4-35.0)
[2025-11-02 09:26] LABS: Magnesium 2.5 mg/dl (1.6-2.3)
--- NOTE | 2025-11-02 09:41 | PTCARENOTE ---
attempted to turn off haile hugger, temp dropping. currently 96.8 rectal. haile hugger resumed
[2025-11-02 09:50] LABS: Blood Urea Nitrogen 39 mg/dl (9-20); Calcium 9.4 mg/dl (8.4-10.2); Carbon Dioxide 20 mmol/L (22-30); Chloride 105 mmol/L (98-107); Estimated Creatinine Clearance 25 ml/min; Glucose 111 mg/dl (70-99); Potassium 3.3 mmol/L (3.5-5.1); Sodium 133 mmol/L (135-145); eGFR 16.18
[2025-11-02] MEDS: MYCAMINE 105 MG IV (09:54)
[2025-11-02] MEDS: KCL 100 IV ×2 (10:06→22:23)
--- NOTE | 2025-11-02 10:14 | OR.RPT ---
Operative Report
Operative Report
Primary Surgeon: Jumana
Pre-op Diagnosis: Ischemic bowel
Post-op Diagnosis: Necrotic and ischemic bowel
Procedure Performed: Exploratory laparotomy, small bowel resection, placement of temporary abdominal closure device
Anesthesia Type: GETA
Specimen / Cultures: Small bowel
Estimated Blood Loss: 10cc
Complications: None immediate
Operative Findings: 90cm frankly necrotic mid small bowel resected; 2 areas of patchy ischemia in proximal jejunum each encompassing ~50% circumference, this area exhibited signs of peristalsis and was left in situ, patient on 2 pressors with
conversion to damage control laparotomy, tentatively for return to OR in 24 hours if physiology improves
Date of Surgery: 10/31/25
Indications: This 50M developed generalized peritonitis. He was discharged from [facility] 2 days prior after an approximately month-long stay for gastrointestinal bleeding managed by double balloon enteroscopy. Imaging at [facility] admission show mesenteric
venous gas and pneumatosis. Emergent exploratory laparotomy was planned.
Description of procedure: The patient was placed on the operating table in the supine position. General anesthesia was induced. A time-out was completed verifying correct patient, procedure, site, positioning, and special equipment prior to
beginning this procedure. An orogastric tube was placed. The abdomen was prepped and draped in the usual sterile fashion. A midline incision was made with cut cautery and the abdomen was entered. A long segment of black-paez small bowel in advanced
state of necrosis was immediately identified. The integrity of the bowel wall was so poor that at initial gentle handling it essentially disintegrated and a moderate amount of thick brown succus spilled. This was controlled by whip stitching the
mesentery over the necrotic bowel and the abdomen was irrigated and suctioned clear. The contamination was fairly widespread. No adhesions were found. The entirety of the small and large bowel were examined. The frankly necrotic area was
approximately 90cm located in the mid small bowel. This was resected with 2 fires of a purple load JOHN stapler. An area of small bowel with 2 dark purple patches was identified more proximally, about 20cmn distal to the ligament o treitz. This bowel
exhibited peristaltic motion when digitally stimulated. At this point the patient was on two pressors with increasing requirements. The operation was converted to damage control laparotomy. The prozimal area of questionable viability was left in
situ. The orogastric tube was verified in the stomach manually. An abthera wound vac dressing waas applied.
The patient was transported to intensive care intubated and on pressor support.
--- NOTE | 2025-11-02 10:15 | W.PN.INTV ---
Today's Communication / Plan
Recommendations
Continue mechanical ventilation without change
Repeat ABG tomorrow
Continue vasopressors target mean arterial blood pressure 65 mmHg
Continue antibiotics
Follow cultures
Follow surgical recommendations
Continue sedation to maintain RASS score 0 to -1
Assessment
-
-
50-year-old man with a recent history of GI bleed, he was transferred in early October to [facility]-underwent enteroscopy with ablation of bleeding. He was discharged about 2 days ago to his shelter.
He reported ongoing abdominal pain before and after discharge. Admitted to [facility] 10/31/2025 with severe abdominal pain. Found to have bowel ischemia underwent exploratory laparotomy emergently-transferred to the critical care unit
intubated and on multiple pressors.
Septic memnf-oskoa-umytqaqcu source
CT of the abdomen pelvis showing fluid-filled dilated small bowel loops measuring up to 3.1 cm with transition point in the right lower quadrant reflecting small bowel obstruction likely due to underlying adhesions, there is extensive small bowel
pneumatosis as well as mesenteric venous gas reflecting bowel ischemia. Scattered abdominal free fluid.
Hypoxemic respiratory failure postoperatively-requiring mechanical ventilation.
Bowel ischemia-status post exploratory laparotomy 10/30/2024
90cm frankly necrotic mid small bowel resected; 2 areas of patchy ischemia in proximal jejunum each encompassing ~50% circumference, this area exhibited signs of peristalsis and was left in situ
Back to the OR 11/01/2025-exploration and removal of additional necrotic small bowel
Coumadin coagulopathy-status post reversal
History of aortic valve replacement
Conditions present prior admission:
End-stage renal disease on hemodialysis
Heart failure with reduced ejection fraction
Pulmonary hypertension-possibly postcapillary. Post mitral valve disease.
Type 2 diabetes
Hyperlipidemia
Atrial fibrillation
Hypothyroidism
Chronic anticoagulation status post mitral valve- mechanical
Obstructive sleep apnea
GERD
[facility] resident
Recent GI bleed-transferred to [facility] for enteroscopy and ablation of small bowel bleeding. 10/2025
Assessment and plan:
Patient is critically ill, complex situation due to multiple comorbidities.
-
Septic shock due to intra-abdominal source
Levophed/epinephrine/vasopressin.
Target mean arterial blood pressure 65 mmHg.
Overall vasopressor requirements improving.
-
Lactic acid elevated at 4.3>>>>3.0>>>1.5
[address]
S/p fluid resuscitation-at risk for volume overload due to underlying chronic kidney disease.
([id number] has LVEF of 45 to 50%/prosthetic mitral valve/dilated and hypokinetic right ventricle with severe pulmonary hypertension similar to September 2024.).
Cortisol level-69 appropriate.
-
Part of the hypotension may be from metabolic acidosis from underlying chronic kidney disease. He was not dialyzed yesterday.
CRRT started 11/01/2025
Negative fluid balance
Acidosis improved
Discussed with nephrology-eventual transition back to hemodialysis when hemodynamics improved.
-
Chest x-ray also with patchy bilateral abnormalities: Pulmonary edema versus pneumonia versus chronic changes
No recent CT chest available
Continue antibiotics for intra-abdominal process.
Doubt pneumonia based on pulmonary mechanics
40% FiO2 and pulmonary mechanics not consistent with reduced compliance
Will continue to follow for now
-
Case discussed with surgery/primary team
Wound VAC in place
Back to the OR 11/01/2025: Additional small bowel resection due to ischemic appearance.
Infectious disease following patient: On broad-spectrum antibiotics to cover for secondary peritonitis
Follow cultures
Continue antibiotics
Hopefully to close abdomen in the next 24 to 48 hours.
-
With mechanical mitral valve/atrial fibrillation-anticoagulation will need to be restarted when safe.
Heparin drip without bolus. Continue to monitor for bleeding. However situation.
High risk situation
-
Mechanical ventilation settings reviewed
Pulmonary mechanics acceptable-peak pressure trending higher/plateau-decrease pulmonary compliance. Suspect some degree of volume, hopefully dialyzed today
Assist-control 500/14/40%/+5
Peak pressure 27-Plateau 25.
ET tube with no secretion
Pulmonary mechanics acceptable.
ABG 7.42/27/158 (11/01/2025)
Continue mechanical ventilation status without change
Continue sedation.
Continue diuresis for secretion clearance
-
Chronic kidney disease: On hemodialysis
Nephrology to follow-case discussed
CRRT as above
-
Monitor blood sugars
Insulin sliding scale
-
Chronic anemia: Due to chronic kidney disease and also sepsis.
Stable so far
Will transfuse as necessary
-
N.p.o--surgical indication.
Head of the bed elevation
Protonix for GI prophylaxis
DVT prophylaxis on heparin drip.
-
Agree with palliative care consultation
It is noted that the patient did not want family to be notified about condition based on previous conversation with surgery.
-
Critical care statement: A total of 47 minutes of critical care time was provided for this patient today. This includes management of unstable vital signs, evaluation of the patient at bedside, reviewing the patient's pertinent medical records
including ventilator settings, arterial blood gases, radiographs, microbiology, laboratory evaluations and discussion with primary team, critical care nursing, and respiratory therapy.
Subjective Dataa
Subjective Data
Date of Service:
Date of Service: November 02, 2025
Chief Complaint: Blow Pit Operator Follow Up (Septic shock/hypoxemic respiratory failure requiring intubation mechanical ventilator)
Subjective:
Remains critically ill, sedated on mechanical ventilation. Requiring multiple vasopressors.
Review of Systems
General: Unobtainable - Sedation
Objective Data
Data Reviewed
Vital Signs / I&O / Oxygen:
Vital Signs
Temp Pulse Resp BP Pulse Ox
96.9 F L 84 21 108/72 100
11/02/25 09:37 11/02/25 09:15 11/02/25 09:15 11/02/25 08:21 11/02/25 09:15
Intake and Output
11/01/25 11/02/25 11/03/25
06:59 06:59 06:59
Intake Total 4009.0 / 4111.8 2966.9 / 3130.7 577.7 / 577.7
Output Total 575 / 575 2110 / 2204 402 / 402
Balance 3434.0 / 3536.8 856.9 / 926.7 175.7 / 175.7
SaO2 [A/C] 100
SaO2 100
Nasal Cannula flow liters per 4
minute
Physical Exam
General: Comfortable
HEENT: Normocephalic and Other (ET tube in place without secretion)
Cardiovascular: S1-S2
Respiratory: Clear and Non-Labored Respirations
GI: Distended, Other (NG tube in place) and Other (Open abdominal wound, absent bowel sounds)
Neurology: Other ( on mechanical ventilation, sedated able to move 4 extremities. Follows commands with sedation breaks.)
Labs/Micro/Reports
Laboratory Results
11/01/25 11/02/25 11/02/25
20:43 00:49 04:50
PT 17.9 H
INR 1.46
APTT 38.8 H 44.1 H 58.4 H
11/02/25 11/02/25 11/02/25
06:00 08:45 08:59
PT Cancelled
INR Cancelled
APTT Cancelled Cancelled 97.5 H
11/02/25
12:45
PT
INR
APTT Cancelled
Microbiology
10/31/25 12:35 Sputum Respiratory Culture - Final
Jessica albicans
10/31/25 12:35 Sputum Gram Stain - Final
10/31/25 12:40 Blood/Venous Blood Culture - Preliminary
No Growth in 24 hours- Final report to follow
10/31/25 12:10 Blood/Venous Blood Culture - Preliminary
No Growth in 24 hours- Final report to follow
--- NOTE | 2025-11-02 10:23 | OR.RPT ---
Operative Report
Operative Report
Primary Surgeon: Jumana
Assisting: Braden CONN
Pre-op Diagnosis: Ischemic bowel
Post-op Diagnosis: Same
Procedure Performed: Exploratory laparotomy, small bowel resection
Anesthesia Type: GETA
Specimen / Cultures: Jejunum
Estimated Blood Loss: 25cc
Complications: None immediate
Operative Findings: Area of proximal jejunum with 2 black spots re-examined and had progressed, this segment was resected (approx 6cm segment resected approx 20cm distal to ligament of treitz). No other intra-abdominal issues. Abthera replaced.
Date of Surgery: 11/01/25
Indications: This 50M underwent damage control laparotomy for ischemic and necrotic small bowel about 30 hours prior. His pressor requirements continued to increase in the intensive care unit. Second look laparotomy was planned to ensure no further
intra-abdominal source contributing to his condition
Description of procedure: The patient was placed on the operating table in the supine position. General anesthesia was induced. A time-out was completed verifying correct patient, procedure, site, positioning, and special equipment prior to
beginning this procedure. An orogastric tube was already in place. The abdomen was prepped and draped in the usual sterile fashion. The abthera sponge was removed, the omentum and small bowel were then eviscerated and inspected. Prior staple lines
and mesenteric divisions were hemostatic. The area of questionable viability of small bowel more proximally was re-examined and had become more frankly necrotic and black. These two areas were resected together, a segment of about 6cm. Initially the
mesentery was controlled with clamps and ties however there was bleeding that was difficult to control. A ligasure was deployed and used to control the bleeding. The abdomen was then irrigated with warm sterile saline. The bowel and omentum was
returned to the abdomen and an abthera vac dressing was placed.
The patient was returned to the intensive care unit intubated and on two pressors.
--- NOTE | 2025-11-02 10:42 | PTCARENOTE ---
Discussed f/u labs with dr Galeana, dialysate switched to 4k+
[2025-11-02] MEDS: RFP-401 HD Soln (K+ 4 mEq/L) 15000 ML CRRT-IRR ×2 (11:08→18:57)
--- NOTE | 2025-11-02 11:31 | PTCARENOTE ---
Addendum entered by Kristan Miguel RN 11/02/25 15:47:
Pt also remains on levo and vasopressin.
Original Note:
Systems reviewed. Weaning epi as able, maintained on prop and fent/heparin as charted. NGT continues to LIWS. No bowel sounds noted. Tender to palpation. CRRT continues. Pt tolerating well. Tolerating repositioning.
--- NOTE | 2025-11-02 12:01 | W.PN.GS2 ---
Today's Communication / Plan
-
Strict NPO/NGT
RTOR within the next 24-48hours
Assessment / Plan
-
50M from [facility] with h/o ESRD on HD, HFrEF, AF, Mechanical AV, cirrhosis, chronically O2 dependent who presented with shock
POD 2 & 1 s/p ex lap with small bowel resection for necrotic and ischemic bowel, in discontinuity with abthera vac closure
Pt remains critically ill
Hypotension but with decreasing pressor requirements
Nephrology following given h/o ESRD currently on CRRT
WBC trending down today
H/H stable
Plan:
Strict NPO/NO PO MEDS
C/W NGT, replace immediately if dislodged
Heparin resumed post op, follow for bleeding
PPI for GI ppx
ABX as per ID
Will need RTOR to reconnect bowel/close abd, currently in discontinuity. Ideally weaned down further on pressors prior to creation of anastomosis. Tentatively tomorrow vs more likely Tuesday pending pt course
Intensive care management as per senior chemical process engineer. Discussed case with hospitalist.
Subjective Data
-
Date of Service: November 02, 2025
Pt seen and examined at bedside with Dr. Granda. Sedated, awakens to name and notes pain to his throat.
Objective Data
-
Intake and Output
11/01/25 11/02/25 11/03/25
06:59 06:59 06:59
Intake Total 4009.0 / 4111.8 2966.9 / 3130.7 1474.5 / 1474.5
Output Total 575 / 575 2110 / 2204 933 / 933
Balance 3434.0 / 3536.8 856.9 / 926.7 541.5 / 541.5
Intake:
Oral fluids 0 / 0
IV fluids (Total) 3099.0 / 3201.8 2306.9 / 2381.2 487.7 / 487.7
Epi 127.6 / 127.6 143.2 / 148.4 26.3 / 26.3
Fent 147.5 / 160.0 280.8 / 289.3 62.7 / 62.7
Heparin 180 / 180 25 / 31.9 46.8 / 46.8
Levo 1356.0 / 1404.8 1223.2 / 1258.6 243.4 / 243.4
Lr 1,000 ml @ 40 mls/hr IV . 520 / 520
Q24H VLADIMIR Rx#:[id number]
Pio 546 / 570 161.3 / 161.3
Prop 221.9 / 239.4 343.8 / 356.0 66.5 / 66.5
Vasopressin 129.6 / 135.7 42.0 / 42.0
IV piggybacks 860 / 860 600 / 689.5 936.8 / 936.8
Amount instilled into GI Tube ( 50 / 50 60 / 60 50 / 50
Total)
[place] Sump 50 / 50 60 / 60 50 / 50
Output:
Drain Output (Total) 475 / 475 150 / 150
Throughout Abdomen Wound Vac 475 / 475 150 / 150
Gastrointestinal tube output ( 100 / 100 400 / 400
Total)
[place] Sump 100 / 100 400 / 400
Urine, Andre 0 / 0
Urine, Voided 0 / 0 0 / 0
CRRT - Actual ultrafiltration 1560 / 1654 933 / 933
volume
Vital Signs
Temp Pulse Resp BP Pulse Ox
96.7 F L 68 20 108/72 100
11/02/25 11:36 11/02/25 10:30 11/02/25 10:30 11/02/25 08:21 11/02/25 10:40
Calcium 9.4 mg/dl (8.4-10.2) 11/02/25 08:59
Phosphorus 2.7 mg/dl (2.5-4.5) 11/02/25 08:59
Magnesium 2.5 mg/dl (1.6-2.3) H 11/02/25 08:59
Total Bilirubin 3.1 mg/dl (0.2-1.3) H 10/31/25 16:42
Direct Bilirubin 2.1 mg/dl (0.0-0.4) H 10/31/25 06:51
AST 36 U/L (17-59) 10/31/25 16:42
ALT 18 U/L (0-50) 10/31/25 16:42
Alkaline Phosphatase 70 U/L (38-126) 10/31/25 16:42
Total Protein 6.5 g/dl (6.3-8.2) 10/31/25 16:42
Albumin 2.9 g/dl (3.5-5.0) L 10/31/25 16:42
Physical Exam
-
Gen: intubated/sedated
Abd: abthera in place and functioning, light ss fluid draining. abd soft
NGT with light bilious outputs, nonbloody
Patient has a andre catheter: Yes
Patient has a central line: Yes
[2025-11-02] MEDS: STERILE WATER FOR INJECTION 20 ML IV (12:11)
[2025-11-02] MEDS: ROCEPHIN 2000 MG IV (12:11)
--- NOTE | 2025-11-02 12:50 | PTCARENOTE ---
repeat labs drawn and sent per protocol.
[2025-11-02 12:57] LABS: Hematocrit 24.1 % (39.0-52.0); Hemoglobin 8.3 g/dL (13.0-18.0); Mean Corp Hgb Conc. 34.4 g/dL (33.0-37.0); Mean Corpuscular Volume 82.8 fL (80.0-94.0); Platelet Count 289 10^3/uL (130-400); Red Cell Dist. Width 17.1 % (11.5-14.5)
[2025-11-02 13:11] LABS: Blood Urea Nitrogen 35 mg/dl (9-20); Calcium 9.0 mg/dl (8.4-10.2); Carbon Dioxide 15 mmol/L (22-30); Chloride 106 mmol/L (98-107); Estimated Creatinine Clearance 30 ml/min; Glucose 110 mg/dl (70-99); Magnesium 2.5 mg/dl (1.6-2.3); Potassium 4.2 mmol/L (3.5-5.1); Sodium 133 mmol/L (135-145); eGFR 19.47
--- NOTE | 2025-11-02 13:14 | W.PN.NEPH.PH ---
Today's Communication / Plan
-
GRIP
Assessment/Plan
-
Impression:
End-stage renal disease.
ischemic bowel status post resection 10/30/25
shock
AV graft
GI bleed
Anemia.
Chronic hypotension on midodrine support
Hyperphosphatemia.
mechanical aortic valve on chronic anticoagulation
AFib. Severe tricuspid regurgitation and severe pulmonary hypertension, heart failure reduced ejection fraction 45%
Plan:
lactate stable
status post OR 2nd time for necrotic tissue removal 11/01
continue GRIP
orders adjusted
maintain even balance for now as FiO2 stable 40%

33 minutes critical care time
-
-
Date of Service: November 02, 2025
CC / HPI / ROS
-
Chief Complaint:
septic shock
History of Present Illness:
ischemic bowel septic shock and chronic dialysis
Review of Systems:
intubated
Labs
-
Labs:
eGFR 19.47 11/02/25 12:47
Albumin 2.9 g/dl (3.5-5.0) L 10/31/25 16:42
Physical Exam
-
Vital Signs:
Vital Signs
Temp Pulse Resp BP Pulse Ox
97.6 F 68 19 120/60 100
11/02/25 12:00 11/02/25 12:45 11/02/25 12:45 11/02/25 12:00 11/02/25 12:45
--- NOTE | 2025-11-02 13:17 | PTCARENOTE ---
pharmacy called for na phos replacement
[2025-11-02] MEDS: SODIUM PHOSPHATE 260 MEQ IV (13:30)
--- NOTE | 2025-11-02 13:34 | PTCARENOTE ---
na phos infusing as ordered
[2025-11-02 15:23] LABS: APTT 111.9 Sec (23.4-35.0)
--- NOTE | 2025-11-02 15:39 | PTCARENOTE ---
Systems reviewed. Pt does not like mouth care. Pinky borrego resumed for hypothermia. Unable to obtain oral temp. Axillary temp 96.2. Continue to wean levo slowly as tolerated. Pt is tolerating small position changes using the bed. Tense with
movement but settles when left alone. Heparin gtt adjusted per protocol. Otherwise no changes.
[2025-11-02 17:08] LABS: Hematocrit 22.9 % (39.0-52.0); Hemoglobin 8.0 g/dL (13.0-18.0); Mean Corp Hgb Conc. 34.9 g/dL (33.0-37.0); Mean Corpuscular Volume 82.1 fL (80.0-94.0); Platelet Count 261 10^3/uL (130-400); Red Cell Dist. Width 16.8 % (11.5-14.5)
[2025-11-02 17:19] LABS: Blood Urea Nitrogen 32 mg/dl (9-20); Calcium 8.7 mg/dl (8.4-10.2); Carbon Dioxide 17 mmol/L (22-30); Chloride 106 mmol/L (98-107); Estimated Creatinine Clearance 32 ml/min; Glucose 127 mg/dl (70-99); Magnesium 2.2 mg/dl (1.6-2.3); Potassium 3.6 mmol/L (3.5-5.1); Sodium 133 mmol/L (135-145); eGFR 21.61
[2025-11-02 21:02] LABS: Hematocrit 23.0 % (39.0-52.0); Hemoglobin 8.2 g/dL (13.0-18.0); Mean Corp Hgb Conc. 35.7 g/dL (33.0-37.0); Mean Corpuscular Volume 81.3 fL (80.0-94.0); Platelet Count 259 10^3/uL (130-400); Red Cell Dist. Width 16.6 % (11.5-14.5)
[2025-11-02 21:18] LABS: APTT 150.5 Sec (23.4-35.0)
[2025-11-02 21:22] LABS: Carbon Dioxide 18 mmol/L (22-30); Estimated Creatinine Clearance 35 ml/min; eGFR 24.23
[2025-11-02 21:31] LABS: Blood Urea Nitrogen 29 mg/dl (9-20); Calcium 9.4 mg/dl (8.4-10.2); Chloride 104 mmol/L (98-107); Glucose 109 mg/dl (70-99); Magnesium 2.2 mg/dl (1.6-2.3); Potassium 3.4 mmol/L (3.5-5.1); Sodium 133 mmol/L (135-145)
[2025-11-03] VITALS (28 sets, daily range): BP systolic 70–148; BP diastolic 35–66; BMI 30.2
--- NOTE | 2025-11-03 00:12 | PTCARENOTE ---
No changes in assessment.
See CVVHD flowsheets.
See Titration flowsheets.
[2025-11-03] MEDS: LEVOPHED 258 MG IV ×6 (01:07→22:41)
[2025-11-03 01:21] LABS: Hematocrit 21.7 % (39.0-52.0); Hemoglobin 7.8 g/dL (13.0-18.0); Mean Corp Hgb Conc. 35.9 g/dL (33.0-37.0); Mean Corpuscular Volume 81.0 fL (80.0-94.0); Platelet Count 260 10^3/uL (130-400); Red Cell Dist. Width 16.7 % (11.5-14.5)
[2025-11-03 01:35] LABS: Blood Urea Nitrogen 26 mg/dl (9-20); Calcium 9.0 mg/dl (8.4-10.2); Carbon Dioxide 16 mmol/L (22-30); Chloride 106 mmol/L (98-107); Estimated Creatinine Clearance 39 ml/min; Glucose 112 mg/dl (70-99); Magnesium 2.2 mg/dl (1.6-2.3); Potassium 4.2 mmol/L (3.5-5.1); Sodium 133 mmol/L (135-145); eGFR 27.50
--- NOTE | 2025-11-03 01:39 | PTCARENOTE ---
Wound vac showing obstruction. Canister changed, all trouble shooting measures exhausted --> ICU KATHY / Gen Surg loss prevention manager notified. Orders to turn off vac and leave dressing in place.
Noted in patient allergies --> Allergic to Porcine, pharmacy notified as patient on heparin gtt --> Awaiting follow up.
No further changes in assessment.
--- NOTE | 2025-11-03 01:39 | W.PN.UPDATE ---
Update Note
Progress Note Update
11/03/2025
0135- Abdominal wound vac no longer holding suction, 'clot', attempting troubleshooting of machine and changing canister, continues to alarm. Updated Dr. Granda, general surgeon, advised to keep wound vac dressing intact and turn off machine at this
time.
[2025-11-03] MEDS: DIPRIVAN 100 IV ×3 (01:55→17:05)
[2025-11-03] MEDS: SODIUM PHOSPHATE 260 MEQ IV (01:56)
--- NOTE | 2025-11-03 02:22 | PTCARENOTE ---
Norepi max dose, restarted Epi --> Max dose.
[2025-11-03] MEDS: NEO-SYNEPHRINE 250 IV (02:52)
[2025-11-03] MEDS: SUBLIMAZE 100 IV ×3 (03:00→21:28)
[2025-11-03] MEDS: RFP-401 HD Soln (K+ 4 mEq/L) 5000 ML CRRT-IRR (03:00)
--- NOTE | 2025-11-03 03:16 | PTCARENOTE ---
persistent hypotension, max dose epi/norepi, vaso --> Blood emergency rinsed back, phenylephrine started, circuit restarted, remains hypotensive despite quadpressed, ICU KATHY bedside, blood rinsebacked again.
Orders to keep off CVVHD for remainder of night, reevaluate in AM w. Nephrology.
To hemodynamically unstable to continue.
Remains quadpressed.
[2025-11-03] MEDS: FLAGYL 500 MG 100 IV ×3 (03:28→18:08)
[2025-11-03] MEDS: SOLU-CORTEF 50 MG IV ×5 (03:28→23:44)
[2025-11-03 03:46] LABS: B.E. -6.1 mmol/L; HCO3 18.6 mmol/L (21-28); O2 Saturation % 99.5 % (94-98); PCO2 33 mmHg (35-48); PO2 140 mmHg (83-108)
[2025-11-03 04:00] LABS: Fibrinogen 775 MG/DL (199-459); INR 1.80; PT 21.1 Sec (11.4-14.6)
[2025-11-03 04:02] LABS: APTT 129.1 Sec (23.4-35.0)
--- NOTE | 2025-11-03 04:44 | PTCARENOTE ---
Maxed on 4 vasopresors, icu oscar notified, orders to transfuse x1 PRBC.
--- NOTE | 2025-11-03 05:35 | W.PN.UPDATE ---
Update Note
Progress Note Update
11/03/25
0330- Patient not tolerating CRRT, becoming extremely hypotensive, now on 4x vasopressors (levophed, vasopressin, epinephrine, and cash gtts). CRRT rinsed back and continued with some instability, CRRT unable to be restarted. Added hydrocortisone
50mg q6H IV for hypotension. Dr. Shipman, pack mule worker, and Dr. Hood, griddle cook, updated patient unable to tolerate CRRT.
[2025-11-03] MEDS: SODIUM BICARBONATE 50 MEQ IV (05:55)
[2025-11-03 06:45] LABS: Albumin 1.8 g/dl (3.5-5.0); Blood Urea Nitrogen 28 mg/dl (9-20); Calcium 7.8 mg/dl (8.4-10.2); Carbon Dioxide 21 mmol/L (22-30); Chloride 106 mmol/L (98-107); Estimated Creatinine Clearance 39 ml/min; Glucose 135 mg/dl (70-99); Magnesium 2.0 mg/dl (1.6-2.3); Potassium 3.7 mmol/L (3.5-5.1); Sodium 135 mmol/L (135-145); Triglycerides 340 mg/dl (10-149); eGFR 27.50
[2025-11-03] MEDS: NSS (PRESERVATIVE FREE) 0.5 ML IV (07:05)
[2025-11-03] MEDS: ATIVAN 1 MG IV ×2 (07:05→13:29)
[2025-11-03 07:11] LABS: Glucose - Point of Care 132 mg/dl (70-99)
--- NOTE | 2025-11-03 07:28 | PTCARENOTE ---
Received pt this am with head shaking, eyes deviated down, not following commands. Video via tt to dr Hood and ativan 1mg ordered IV given. Blood sugar 132 at the time. BP had dropped, pt maintained on epi/levo/cash/vaso, heparin/prop and
fentanyl as charted. NGT remains to liws. SCD in place. Wound vac connected, but clotted overnight. Abdomen remains without bs, more distended this morning. remains intubated. Tongue appears more swollen this am. Otherwise please refer to
work list.
--- NOTE | 2025-11-03 07:53 | PHA.VAN.FU ---
Vancomycin Assessment / Plan
- Assessment
Hemodialysis Schedule: Other (CRRT STARTED FLOW RATE 1.5L/HR)
WBC's are: Stable
In the past 24 hrs, patient has been: Afebrile
Concomitant Antimicrobials: CEFTRIAXONE, METRONIDAZOLE, MICAFUNGIN
- Assessment - Therapeutic Drug Monitoring
Random Level: 16.5
- Dosing Plan
Dosing by Level: Re-dose today (1000MG)
- Monitoring Plan
Random Level: 11/04 IN AM
- Follow Up
Pharmacy will continue to follow.
Vancomycin Follow UP
- -
Patient Age: 50
Patient Sex: Male
Vancomycin Day #: 4
Indication: Pulmonary/Respiratory
Requesting Provider: ERICA ROONEY
Pertinent Antimicrobial Allergies:
PIP/TAZO=ITCHING, tolerates amoxicillin and cepharlosporins
Height / Weight:
Height 6 ft
Actual Weight 101 kg
Pertinent Past Medical History: ESRD on dilaysis MWF, COPD, DM, chronic respiratory failure, [place] resident
- Vital Signs / Lab Results
Temp Pulse Resp BP Pulse Ox
99.2 F 112 13 107/62 100
11/03/25 07:27 11/03/25 07:45 11/03/25 07:45 11/03/25 07:10 11/03/25 07:45
Lab Results - Hematology
10/31/25 11/01/25 11/01/25
16:42 04:13 20:43
WBC 16.0 H 19.8 H 21.2 H
11/02/25 11/02/25 11/02/25
00:49 04:50 06:00
WBC 20.0 H 20.0 H Cancelled
11/02/25 11/02/25 11/02/25
06:45 08:59 12:47
WBC Cancelled 18.1 H 18.0 H
11/02/25 11/02/25 11/03/25
17:00 20:50 01:10
WBC 17.4 H 17.1 H 17.8 H
11/03/25 11/03/25
05:00 09:00
WBC Cancelled Cancelled
Lab Results - Chemistry
10/31/25 10/31/25 11/01/25
06:51 16:42 04:13
BUN 43 H 51 H 59 H
Creatinine 6.8 H* 7.0 H* 7.4 H*
Estimated Creat Clear 14 14 13
Albumin 3.0 L 2.9 L
11/01/25 11/02/25 11/02/25
20:43 00:49 04:50
BUN 56 H 50 H 46 H
Creatinine 5.7 H* 5.3 H* 4.6 H*
Estimated Creat Clear 17 18 23
Albumin
11/02/25 11/02/25 11/02/25
06:00 08:59 12:47
BUN Cancelled 39 H 35 H
Creatinine Cancelled 4.2 H* 3.6 H
Estimated Creat Clear Cancelled 25 30
Albumin
11/02/25 11/02/25 11/03/25
17:00 20:50 01:10
BUN 32 H 29 H 26 H
Creatinine 3.3 H 3.0 H 2.7 H
Estimated Creat Clear 32 35 39
Albumin
11/03/25 11/03/25 11/03/25
05:00 06:01 06:01
BUN Cancelled 28 H
Creatinine Cancelled 2.7 H
Estimated Creat Clear Cancelled 39
Albumin 1.8 L Cancelled
11/03/25
09:00
BUN Cancelled
Creatinine Cancelled
Estimated Creat Clear Cancelled
Albumin
10/31/25 10/31/25 10/31/25
06:51 16:42 20:13
Lactic Acid 4.3 H* 2.7 H 3.3 H
11/01/25 11/01/25 11/01/25
02:16 05:57 09:37
Lactic Acid 3.4 H 3.5 H 3.0 H
11/01/25 11/01/25 11/03/25
13:50 18:01 03:32
Lactic Acid 2.2 H 1.5 1.3
Microbiology Results
10/31/25 12:40 Blood Culture - Preliminary
Blood/Venous No Growth in 48 hours- Final report to follow
10/31/25 12:10 Blood Culture - Preliminary
Blood/Venous No Growth in 48 hours- Final report to follow
10/31/25 12:35 Respiratory Culture - Final
Sputum Jessica albicans
Gram Stain - Final
Therapeutic Drug Monitoring
Random Vancomycin 16.5 ug/ml 11/03/25 06:01
[2025-11-03] MEDS: NSS (PRESERVATIVE FREE) 10 ML IV ×2 (07:57→19:48)
[2025-11-03] MEDS: PROTONIX IV 40 MG IV ×2 (07:57→19:47)
[2025-11-03] MEDS: FLORINEF PO (07:57)
[2025-11-03] MEDS: SANDOSTATIN 100 MCG SC ×2 (07:57→21:33)
--- NOTE | 2025-11-03 08:18 | W.PN.HOSP.TC ---
Today's Communication/Plan
-
see plan
Assessment / Plan
Assessment / Plan
Gen: NAD, NCAT
Eyes: EOMI, no scleral icterus
CV: tachycardic, reg rhythm, +S1/S2, no m/r/g.
Resp: remains CTAB anteriorly, no rales, wheezes, or rhonchi.
Abd: absent BS, diffuse tenderness to light palpation with guarding, mod distention, wound vac in place, soft
Skin: No rashes.
Neuro: remains CN2-12 intact
10/31/25 12:40 Blood/Venous Blood Culture - Preliminary
No Growth in 48 hours- Final report to follow
10/31/25 12:10 Blood/Venous Blood Culture - Preliminary
No Growth in 48 hours- Final report to follow
10/31/25 12:35 Sputum Respiratory Culture - Final
Jessica albicans
10/31/25 12:35 Sputum Gram Stain - Final
CT A/P:
Mild small bowel dilatation suggesting ileus versus early or partial small bowel obstruction. New. Associated pneumatosis and mesenteric venous gas suggesting ischemia. New
Mild airspace disease in the right lower lung field concerning for pneumonia. Atelectasis not excluded. New
Moderate left lower lobe atelectasis versus scarring. Developing pneumonia not excluded. New
Rectal wall thickening concerning possible right-sided renal mass and proctitis. New.
Nodular hepatic margin suggesting cirrhosis. Stable
Mild ascites about the liver. New
Bilateral renal atrophy. Stable
Moderate cardiomegaly. Stable
Septic shock due to SBO causing ischemic bowel:
-INR reversed on admission with Vit K and prothrombin complex
-s/p 10/31AM exploratory laparotomy, small bowel resection, placement of temporary abdominal closure device by Dr. Denney. Note, as per OR report, '90cm frankly necrotic mid small bowel resected; 2 areas of patchy ischemia in proximal jejunum each
encompassing ~50% circumference, this area exhibited signs of peristalsis and was left in situ.'
-s/p 11/01 return to OR with further bowel resection
-cont sedation with propofol/fentanyl
-cont vasopressors Levophed/Pio/epi/vasopressin gtts (hypotensive on CRRT which has now been stopped)
-remain intubated today, vent settings AC 500/16/5/40%
-cont Vanco/Rocephin/Flagyl/Micafungin as per ID, BCxs NGTD
-currently on Octreotide SC Q12H
-discussed with surgery and medicare compliance auditor
-s/p 1U pRBCs (given for hypotension and dropping Hb, likely acute blood loss anemia)
Reported seizure activity:
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
-start Keppra 1g IV Q12H
-should seizure activity recur, check EEG and c/s neuro
-discussed with medicare compliance auditor
ESRD:
-despite 4 vasopressors pt was hypotensive on CRRT
-renal following
Other problems:
h/o SJM Mechanical MVR 1997: cont heparin gtt
Permanent Afib: cont heparin gtt.
Severe TR
Anemia of chronic renal disease: s/p 1U pRBCs as above
h/o ICD explant due to infection 2005
h/o CVA
Chronic HFrEF with recovered EF, now EF 45-50% on most recent echo: daily wts, I/Os
Hypokalemia, resolved
Hyponatremia, mild
Hypocalcemia, resolved
Likelihood of mortality is close to 100%.
Total critical care time = 40 min
Anticipated Discharge: Within 24 hours
Subjective/Interval History
-
Date of Service: November 03, 2025
Reported seizure activity early this AM. Intubated/sedated.
Objective Data
-
Labs:
Laboratory Results
11/02/25 11/03/25 11/03/25
20:50 01:10 03:32
WBC 17.1 H 17.8 H
Hgb 8.2 L 7.8 L
Hct 23.0 L 21.7 L
Plt Count 259 260
PT 21.1 H
INR 1.80
APTT 150.5 H* 129.1 H
HCO3
Sodium 133 L 133 L
Potassium 3.4 L 4.2
Chloride 104 106
Carbon Dioxide 18 L 16 L
BUN 29 H 26 H
Creatinine 3.0 H 2.7 H
Glucose 109 H 112 H
Calcium 9.4 9.0
11/03/25 11/03/25 11/03/25
03:32 05:00 06:00
WBC Cancelled Pending
Hgb Cancelled Pending
Hct Cancelled Pending
Plt Count Cancelled Pending
PT
INR
APTT Cancelled
HCO3 18.6 L
Sodium Cancelled
Potassium Cancelled
Chloride Cancelled
Carbon Dioxide Cancelled
BUN Cancelled
Creatinine Cancelled
Glucose Cancelled
Calcium Cancelled
11/03/25 11/03/25
06:01 09:00
WBC Cancelled
Hgb Cancelled
Hct Cancelled
Plt Count Cancelled
PT
INR
APTT
HCO3
Sodium 135 Cancelled
Potassium 3.7 Cancelled
Chloride 106 Cancelled
Carbon Dioxide 21 L Cancelled
BUN 28 H Cancelled
Creatinine 2.7 H Cancelled
Glucose 135 H Cancelled
Calcium 7.8 L Cancelled
Vital Signs:
Vital Signs
Temp Pulse Resp BP Pulse Ox
99.2 F 112 13 107/62 100
11/03/25 07:27 11/03/25 07:45 11/03/25 07:45 11/03/25 07:10 11/03/25 08:00
I&O
11/02/25 11/03/25 11/04/25
06:59 06:59 06:59
Intake Total 2966.9 / 3130.7 5150.8 / 5326.6 285.7 / 285.7
Output Total 2109 3581 / 3581 0 / 0
Balance 856.9 / 926.7 1569.8 / 1745.6 285.7 / 285.7
--- NOTE | 2025-11-03 08:35 | W.PN.INTV ---
Today's Communication / Plan
Recommendations
Continue antibiotics
Continue mechanical ventilation without change
Continue multiple vasopressors and titrate as able
Hydrocortisone was started for relative adrenal insufficiency
For high risk laparotomy and exploration today for possibly additional resection
Start Keppra-patient on Lamictal in the outpatient setting and has not been taking-possible seizure activity this morning
Continue sedation
N.p.o.
CRRT on hold 11/03/2025 due to hemodynamic instability
Poor prognosis
Assessment
-
-
50-year-old man with a recent history of GI bleed, he was transferred in early October to [facility]-underwent enteroscopy with ablation of bleeding. He was discharged about 2 days ago to his custodial.
He reported ongoing abdominal pain before and after discharge. Admitted to [facility] 10/31/2025 with severe abdominal pain. Found to have bowel ischemia underwent exploratory laparotomy emergently-transferred to the critical care unit
intubated and on multiple pressors.
Septic [id number] source
CT of the abdomen pelvis showing fluid-filled dilated small bowel loops measuring up to 3.1 cm with transition point in the right lower quadrant reflecting small bowel obstruction likely due to underlying adhesions, there is extensive small bowel
pneumatosis as well as mesenteric venous gas reflecting bowel ischemia. Scattered abdominal free fluid.
Hypoxemic respiratory failure postoperatively-requiring mechanical ventilation.
Bowel ischemia-status post exploratory laparotomy 10/30/2024
90cm frankly necrotic mid small bowel resected; 2 areas of patchy ischemia in proximal jejunum each encompassing ~50% circumference, this area exhibited signs of peristalsis and was left in situ
Back to the OR 11/01/2025-exploration and removal of additional necrotic small bowel
Coumadin coagulopathy-status post reversal
History of aortic valve replacement
Conditions present prior admission:
End-stage renal disease on hemodialysis
Heart failure with reduced ejection fraction
Pulmonary hypertension-possibly postcapillary. Post mitral valve disease.
Type 2 diabetes
Hyperlipidemia
Atrial fibrillation
Hypothyroidism
Chronic anticoagulation status post mitral valve- mechanical
Obstructive sleep apnea
GERD
assisted resident
Recent GI bleed-transferred to [facility] for enteroscopy and ablation of small bowel bleeding. 10/2025
Assessment and plan:
Patient is critically ill, complex situation due to multiple comorbidities.
-
Septic shock due to intra-abdominal source-bowel ischemia status post resection.
Levophed/epinephrine/vasopressin/cash -- worsening requirements overnight.
Target mean arterial blood pressure 65 mmHg.
Overall vasopressor requirements improving.
-
Lactic acid elevated at 4.3>>>>3.0>>>1.5>>>1.3 (11/03/2025)
Arterial line in place
S/p fluid resuscitation-at risk for volume overload due to underlying chronic kidney disease.
([id number] has LVEF of 45 to 50%/prosthetic mitral valve/dilated and hypokinetic right ventricle with severe pulmonary hypertension similar to September 2024.).
Stress doses of hydrocortisone started empirically (11/03/2025) not sure how would be beneficial, will give a short course. Random cortisol level a few days ago was 69.
-
Part of the hypotension may be from metabolic acidosis from underlying chronic kidney disease. He was not dialyzed yesterday.
CRRT started 11/01/2025>>>> CRRT held 11/03/2025 due to hemodynamic instability.
Acidosis improved
Nephrology following the patient-eventual transition back to hemodialysis when hemodynamics improved.
-
Chest x-ray also with patchy bilateral abnormalities: Pulmonary edema versus pneumonia versus chronic changes
No recent CT chest available
Continue antibiotics for intra-abdominal process.
Doubt pneumonia based on pulmonary mechanics
40% FiO2 and pulmonary mechanics not consistent with reduced compliance
Will continue to follow for now
-
Case discussed with surgery/primary team
Wound VAC in place
Back to the OR 11/01/2025: Additional small bowel resection due to ischemic appearance.
Due to increased vasopressor requirements 11/03/2025-patient likely will need additional exploration. Discussed with surgery who discussed with brother in [place] would like to proceed with surgery if necessary.
High risk situation patient on 4 vasopressors. Very unstable. High risk of .
-
Infectious disease following patient: On broad-spectrum antibiotics to cover for secondary peritonitis
Follow cultures
Respiratory culture with Jessica-likely colonizer
Continue antibiotics
Hopefully to close abdomen in the next 24 to 48 hours.
-
With mechanical mitral valve/atrial fibrillation-anticoagulation will need to be restarted when safe.
Heparin drip without bolus. Continue to monitor for bleeding. However situation.
-
Anemia noted-hemoglobin 7.8. Continue to monitor for bleeding, high risk situation.
s/p 1U PRBC
Platelet counts normal
INR normal
Will transfuse as necessary.
-
Mechanical ventilation settings reviewed
Pulmonary mechanics acceptable-peak pressure trending higher/plateau-decrease pulmonary compliance. Suspect some degree of volume, hopefully dialyzed today
Assist-control 500/16/40%/+5
Peak pressure 27-Plateau 25.
ET tube with no secretion
Pulmonary mechanics acceptable.
ABG 7.42/27/158 (11/01/2025)
ABG 7.30 6/33/140 (11/03/2025)
Continue mechanical ventilation without change
Continue sedation.
Continue diuresis for secretion clearance
-
Chronic kidney disease: On hemodialysis
Nephrology to follow-case discussed
CRRT as above
-
Possible seizure activity this morning-responded to Ativan
Patient remains n.p.o.
Patient on Lamictal in the outpatient setting will start Keppra IV11/03/2025
If seizure activity persists EEG will be needed
-
Monitor blood sugars
Insulin sliding scale
-
Chronic anemia: Due to chronic kidney disease and also sepsis.
Stable so far
Will transfuse as necessary
-
N.p.o--surgical indication.
Head of the bed elevation
Protonix for GI prophylaxis
DVT prophylaxis on heparin drip.
-
Agree with palliative care consultation
It is noted that the patient did not want family to be notified about condition based on previous conversation with surgery.
Will discussed with brother goals of care, patient unfortunately worsening-prognosis is very poor.
-
Critical care statement: A total of 47 minutes of critical care time was provided for this patient today. This includes management of unstable vital signs, evaluation of the patient at bedside, reviewing the patient's pertinent medical records
including ventilator settings, arterial blood gases, radiographs, microbiology, laboratory evaluations and discussion with primary team, critical care nursing, and respiratory therapy.
Subjective Dataa
Subjective Data
Date of Service:
Date of Service: November 03, 2025
Chief Complaint: Programming Engineer Follow Up (Septic shock/hypoxemic respiratory failure requiring intubation mechanical ventilator)
Subjective:
Remains critically ill on mechanical ventilation, requiring multiple pressors
This morning with possible seizure activity
Review of Systems
General: Unobtainable - Sedation
Objective Data
Data Reviewed
Vital Signs / I&O / Oxygen:
Vital Signs
Temp Pulse Resp BP Pulse Ox
99.2 F 112 13 107/62 100
11/03/25 07:27 11/03/25 07:45 11/03/25 07:45 11/03/25 07:10 11/03/25 08:31
Intake and Output
11/02/25 11/03/25 11/04/25
06:59 06:59 06:59
Intake Total 2966.9 / 3130.7 5150.8 / 5326.6 285.7 / 285.7
Output Total 2110 / 2204 3581 / 3581 0 / 0
Balance 856.9 / 926.7 1569.8 / 1745.6 285.7 / 285.7
SaO2 [A/C] 100
SaO2 100
Nasal Cannula flow liters per 4
minute
Physical Exam
General: Comfortable
HEENT: Normocephalic and Other (ET tube in place without secretion)
Cardiovascular: S1-S2
Respiratory: Clear and Non-Labored Respirations
GI: Distended, Other (NG tube in place) and Other (Open abdominal wound, absent bowel sounds)
Neurology: Other ( on mechanical ventilation, sedated able to move 4 extremities. Follows commands with sedation breaks.) and Other (No nystagmus appreciated)
Labs/Micro/Reports
Lab Data
11/03/25 09:00
Laboratory Results
11/02/25 11/02/25 11/02/25
08:59 15:00 20:50
PT
INR
APTT 97.5 H 111.9 H 150.5 H*
pH
pCO2
pO2
HCO3
O2 Delivery Level
11/03/25 11/03/25
03:32 03:32
PT 21.1 H
INR 1.80
APTT 129.1 H Cancelled
pH 7.36
pCO2 33 L
pO2 140 H
HCO3 18.6 L
O2 Delivery Level
Microbiology
10/31/25 12:40 Blood/Venous Blood Culture - Preliminary
No Growth in 48 hours- Final report to follow
10/31/25 12:10 Blood/Venous Blood Culture - Preliminary
No Growth in 48 hours- Final report to follow
10/31/25 12:35 Sputum Respiratory Culture - Final
Jessica albicans
10/31/25 12:35 Sputum Gram Stain - Final
[2025-11-03] MEDS: NEO-SYNEPHRINE 1% 260 MG IV ×2 (08:57→17:55)
--- NOTE | 2025-11-03 09:02 | W.PN.ID1 ---
Date of Service
Date of Service: November 03, 2025
Today's Communication
remains critically ill
Assessment / Plan
Septic Shock - ongoing
Ischemic Bowel
Possible Pneumonia - less likely per pulmonary due to mechanics
COPD
Cirrhosis
Mechanical MV
ESRD currently holding CRRT
Reported Allergy to Zosyn if tolerates amoxicillin likely not a real allergy
- bowel in discontinuity, possible return to the OR at some point
- blood cultures x2 in progress no growth to date
- sputum culture with C albicans normal mook
- off of crrt - not tolerating due to hypotension
- c/w ceftriaxone 2 gm IV q24
- c/w metronidazole at 500 mg IV q8 for present
- c/w vancomycin - Enterococcal coverage
- c/w micafungin
- possible rectal mass seen on CT a/p - eventual assessment
patient remains critically ill, prognosis guarded
Chief Complaint
-: Leukocytosis and Other (septic shock)
Subjective / Review of Systems
hypothermic overnight
remains on 4 pressors no significant improvement
head shaking and eye deviation, no following commands this am, had ativan, glucose was normal
not tolerating crrt overnight - stopped
steroids added
wound vac was not holding suction - turned off overnight
11/01 post op report: small bowel resection, may return to the OR per surgery - currently in discontinuity
Vital Signs / Physical Exam
Vital Signs
Vital Signs
Temp Pulse Resp BP Pulse Ox
99.2 F 104 13 101/56 97
11/03/25 07:27 11/03/25 08:45 11/03/25 08:45 11/03/25 08:00 11/03/25 08:45
Physical Exam
Constitutional: Acutely Ill
Head: Other (tongue enlarged and sticking out of mouth)
Cardiovascular: Regular Rate and S1/S2; Negative Murmur or Rub
Pulmonary: Clear and Symmetric; Negative Wheezes or Rales
Gastrointestinal: Soft, Tender, Non Distended and Normal Bowel Sounds
Skin: Warm and Dry; Negative Rash or Jaundice
Lines: Other (wound vac)
Objective Data
Lab Data
Lab Results
11/03/25 09:00
PT 21.1 Sec (11.4-14.6) H 11/03/25 03:32
INR 1.80 11/03/25 03:32
APTT 129.1 Sec (23.4-35.0) H 11/03/25 03:32
APTT Cancelled 11/03/25 03:32
Estimated Creat Clear Cancelled 11/03/25 09:00
Lactic Acid 1.3 mmol/L (0.7-2.0) 11/03/25 03:32
Total Bilirubin 3.1 mg/dl (0.2-1.3) H 10/31/25 16:42
AST 36 U/L (17-59) 10/31/25 16:42
ALT 18 U/L (0-50) 10/31/25 16:42
Alkaline Phosphatase 70 U/L (38-126) 10/31/25 16:42
Most recent labs reviewed.
Micro Results:
10/31/25 12:40 Blood Culture - Preliminary
Blood/Venous No Growth in 48 hours- Final report to follow
10/31/25 12:10 Blood Culture - Preliminary
Blood/Venous No Growth in 48 hours- Final report to follow
10/31/25 12:35 Respiratory Culture - Final
Sputum Jessica albicans
Gram Stain - Final
[2025-11-03] MEDS: VANCOCIN 200 IV (09:17)
[2025-11-03] MEDS: KEPPRA 1000 MG IV ×2 (09:28→19:45)
[2025-11-03] MEDS: PITRESSIN 100 IV ×2 (09:30→19:48)
--- NOTE | 2025-11-03 09:39 | PTCARENOTE ---
Dr Granda spoke with family. They are driving from [place] to visit with patient prior to making decision to return to OR. Weaning epi as able. See work list. Pio now double concentrated.
[2025-11-03] MEDS: MYCAMINE 105 MG IV (10:24)
--- NOTE | 2025-11-03 10:40 | PTCARENOTE ---
Pt repositioned as bp continues to improve and weaning epi as charted. With repositioning pt started dumping dk brown from ngt and bleeding noted on foam/wound vac. Tamera Parkinson aware, Dr Hood aware and heparin stopped at this time.
[2025-11-03] MEDS: SUBLIMAZE 50 MCG IV (10:58)
--- NOTE | 2025-11-03 11:04 | W.PN.NEPH.PH ---
Today's Communication / Plan
-
pressor support
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
Assessment/Plan
-
Impression:
End-stage renal disease.
ischemic bowel status post resection 10/30/25
shock
AV graft
GI bleed
Anemia.
Chronic hypotension on midodrine support
Hyperphosphatemia.
mechanical aortic valve on chronic anticoagulation
AFib. Severe tricuspid regurgitation and severe pulmonary hypertension, heart failure reduced ejection fraction 45%
Plan:
lactate stable
status post OR 2nd time for necrotic tissue removal 11/01
worsening clinical status now on 4 pressors possible OR again today for exploration of necrotic tissue
holding MAINTENANCE SHOP LABORER for instability though electrolytes stable and no acute need to resume at this time from an electrolyte or volume standpoint.
Order labs for now
prognosis poor at best unfortunately

33 minutes critical care time
-
-
Date of Service: November 03, 2025
CC / HPI / ROS
-
Chief Complaint:
septic shock
History of Present Illness:
ischemic bowel septic shock and chronic dialysis
Review of Systems:
intubated
Labs
-
Labs:
Sodium Cancelled 11/03/25 09:00
Potassium Cancelled 11/03/25 09:00
Chloride Cancelled 11/03/25 09:00
Carbon Dioxide Cancelled 11/03/25 09:00
BUN Cancelled 11/03/25 09:00
Creatinine Cancelled 11/03/25 09:00
eGFR Cancelled 11/03/25 09:00
Glucose Cancelled 11/03/25 09:00
Calcium Cancelled 11/03/25 09:00
Phosphorus Cancelled 11/03/25 09:00
Albumin 1.8 g/dl (3.5-5.0) L 11/03/25 06:01
Albumin Cancelled 11/03/25 06:01
Physical Exam
-
Vital Signs:
Vital Signs
Temp Pulse Resp BP Pulse Ox
99.2 F 100 12 101/56 100
11/03/25 07:27 11/03/25 10:15 11/03/25 10:15 11/03/25 08:00 11/03/25 10:15
--- NOTE | 2025-11-03 11:24 | W.PN.UPDATE ---
Update Note
Progress Note Update
Significant bleeding noted on wound VAC--> 300 cc drained
Will need to stop heparin and observe
Will restart once cleared by surgery.
For possible exploration today.
Family is coming from [place] to visit and decide on goals of care
[2025-11-03 11:42] LABS: Hematocrit 20.9 % (39.0-52.0); Hemoglobin 7.4 g/dL (13.0-18.0); Mean Corp Hgb Conc. 35.4 g/dL (33.0-37.0); Mean Corpuscular Volume 81.0 fL (80.0-94.0); Platelet Count 250 10^3/uL (130-400); Red Cell Dist. Width 15.7 % (11.5-14.5)
--- NOTE | 2025-11-03 11:45 | PTCARENOTE ---
Systems reviewed. Less responsive/interactive since yesterday. Propofol reduced as charted. Labs drawn and sent as ordered. Otherwise see work list.
[2025-11-03 11:48] LABS: APTT 56.9 Sec (23.4-35.0)
--- NOTE | 2025-11-03 11:51 | CM ---
Chart reviewed. Pt remains intubated on pressors, Fentanyl and Propofol drips.
CHAIR on hold.
Family coming from [place] for goals of care conversation.
--- NOTE | 2025-11-03 12:08 | W.PN.GS2 ---
Today's Communication / Plan
-
No plans for surgery at the present time.
Will re-evaluate later.
Assessment / Plan
-
50M from [facility] with h/o ESRD on HD, HFrEF, AF, Mechanical AV, cirrhosis, chronically O2 dependent who presented with shock
POD 3 & 2 s/p ex lap with small bowel resection for necrotic and ischemic bowel, in discontinuity with abthera vac closure
Pt remains critically ill and has deteriorated. He is requiring more pressors.
He received a unit of blood and he remains in the 7's.
His lactate remains normal and he is not acidotic.
Nephrology following - CRRT on hold due to hemodynamic instability and normal electrolytes
WBC trending up today
Plan:
I was hopeful he was stabilizing and the plan was for surgery with possible reanastomosis today, but currently he is much worse and I feel too unstable for anesthesia and surgery. Even if there is ischemic bowel to resect, his chance of survival is
nil in my opinion.
I discussed this with his treating physicians as well as the patient's brother and sister. I reviewed the surgical options including surgery which would involve opening his abdomen and resecting bowel if needed, with no anastomosis and the need for
further surgery. He is currently bleeding and the plan is to hold the heparin. If his condition improves, surgery is an option if they wish to pursue it, but given his multiple medical problems, I favor comfort measures. I encouraged them to come
to the hospital today (they live in [place]) and to call with any questions.
Subjective Data
-
Date of Service: November 03, 2025
He remains intubated and sedated and is now on 4 pressors to maintain his blood pressure.� There was reported seizure activity this morning.
Objective Data
-
Intake and Output
11/02/25 11/03/25 11/04/25
06:59 06:59 06:59
Intake Total 2966.9 / 3130.7 5150.8 / 5326.6 1172.3 / 1172.3
Output Total 2110 / 2204 3581 / 3581 500 / 500
Balance 856.9 / 926.7 1569.8 / 1745.6 672.3 / 672.3
Intake:
IV fluids (Total) 2306.9 / 2381.2 2442.0 / 2587.8 733.7 / 733.7
Epi 143.2 / 148.4 28.2 / 28.2
Fent 280.8 / 289.3 347.7 / 362.7 63.8 / 63.8
Heparin 25 / 31.9 198.0 / 204.0 31.0 / 31.0
Levo 1223.2 / 1258.6 1118.8 / 1175.1 322.6 / 322.6
Pio 161.3 / 161.3
Phenylephrine 150 / 195 174.8 / 174.8
Prop 343.8 / 356.0 384.9 / 399.4 91.9 / 91.9
Vasopressin 129.6 / 135.7 214.4 / 223.4 49.6 / 49.6
IV piggybacks 600 / 689.5 2098.8 / 2098.8 378.6 / 378.6
Amount instilled into GI Tube ( 60 / 60 110 / 140 60 / 60
Total)
Irion Sump 60 / 60 110 / 140 60 / 60
Blood Products 250 / 250
Packed red blood cells 250 / 250
Blood Product Amount Infused ( 250 / 250
mL)
Packed Rbc Leukoreduced Unit 250 / 250
[id number]
Output:
Drain Output (Total) 150 / 150 100 / 100
Throughout Abdomen Wound Vac 150 / 150 100 / 100
Gastrointestinal tube output ( 400 / 400 0 / 0 500 / 500
Total)
Irion Sump 400 / 400 0 / 0 500 / 500
Urine, Voided 0 / 0 0 / 0 0 / 0
CRRT - Actual ultrafiltration 1560 / 1654 3481 / 3481
volume
Vital Signs
Temp Pulse Resp BP Pulse Ox
99.2 F 96 16 148/66 100
11/03/25 07:27 11/03/25 11:45 11/03/25 11:45 11/03/25 10:49 11/03/25 12:00
Lab Results
11/03/25 11:29
Calcium Cancelled 11/03/25 09:00
Phosphorus Cancelled 11/03/25 09:00
Magnesium Cancelled 11/03/25 09:00
Total Bilirubin 3.1 mg/dl (0.2-1.3) H 10/31/25 16:42
Direct Bilirubin 2.1 mg/dl (0.0-0.4) H 10/31/25 06:51
AST 36 U/L (17-59) 10/31/25 16:42
ALT 18 U/L (0-50) 10/31/25 16:42
Alkaline Phosphatase 70 U/L (38-126) 10/31/25 16:42
Total Protein 6.5 g/dl (6.3-8.2) 10/31/25 16:42
Albumin 1.8 g/dl (3.5-5.0) L 11/03/25 06:01
Albumin Cancelled 11/03/25 06:01
Physical Exam
-
Sedated, not arousable
Abd: soft and the Abthera is in place with no leak, serosangenous fluid in the tubing and the machine is reading 'occlusion'.
Patient has a andre catheter: Yes
Patient has a central line: Yes
[2025-11-03 12:16] LABS: ALT (SGPT) 26 U/L (0-50); AST (SGOT) 35 U/L (17-59); Albumin 1.8 g/dl (3.5-5.0); Alkaline Phosphatase 112 U/L (38-126); Blood Urea Nitrogen 29 mg/dl (9-20); Calcium 7.4 mg/dl (8.4-10.2); Carbon Dioxide 18 mmol/L (22-30); Chloride 109 mmol/L (98-107); Estimated Creatinine Clearance 35 ml/min; Glucose 161 mg/dl (70-99); Potassium 3.9 mmol/L (3.5-5.1); Sodium 134 mmol/L (135-145); Total Protein 4.3 g/dl (6.3-8.2); eGFR 24.23
--- NOTE | 2025-11-03 12:25 | PTCARENOTE ---
Ale Hood and Laura aware of repeat hh. Orders for another unit of prbc obtained. Dr Zelaya aware of repeat cmp/lactic. No further orders at this time.
[2025-11-03] MEDS: ROCEPHIN 2000 MG IV (12:36)
[2025-11-03] MEDS: STERILE WATER FOR INJECTION 20 ML IV (12:36)
--- NOTE | 2025-11-03 13:01 | PTCARENOTE ---
prbc initiated as ordered
--- NOTE | 2025-11-03 13:15 | PTCARENOTE ---
prior to initiated prbc, bp dropping. phenylephrine quickly maxed and epi again maxed. levo remains maxed and vaso continues to infuse. propofol also stopped at the time. Dr Hood at bedside and aware. He will contact family as they have not
arrived yet.
--- NOTE | 2025-11-03 13:35 | PTCARENOTE ---
after propofol off for about 20 minutes, pt head 'twitching'. Dr Hood aware and at bedside. Wanted ativan to be given. Dose given with improvement in movements. Pt was then coughing, leading to temp hypotension in to 70s which resolved after a
few minutes without intervention.
--- NOTE | 2025-11-03 13:46 | W.PN.UPDATE ---
Update Note
Progress Note Update
I called and left a message for her brother and I did speak with his sister informing them that he is on maximum pressors to maintain his blood pressure. She is waiting for her ride to come to the hospital, about 3 hours away. I provided a number
to contact me.
--- NOTE | 2025-11-03 14:05 | W.PN.UPDATE ---
Update Note
Progress Note Update
Unfortunately, condition has deteriorated.
Currently on 4 vasopressors at maximum doses
CRRT has been discontinued due to instability
Likely patient with intra-abdominal bleed based on wound VAC output.
2 units of packed red blood cells have been given.
Also intermittent seizures on Ativan.
Unable to take to the operating room due to significant hemodynamic instability.
Prognosis is grim.
Discussed with sister sister over the phone who states that she is the main person to make decisions together with patient's brother who is possibly on his way already.
We have decided to institute DNR.
Continue with full support for now.
Multiple reevaluations throughout the course of the day.
-
Additional critical care time 35 min
[2025-11-03] MEDS: ADRENALIN 258 MG IV (14:36)
--- NOTE | 2025-11-03 15:10 | PTCARENOTE ---
BP improved after prbc, remains maxed on pressors. Pt is now dnr. Repeat labs to be drawn at 1700
--- NOTE | 2025-11-03 16:10 | PTCARENOTE ---
Systems reviewed and without change. Attempted to turn, bp dropped in to 70s. Pt then coughed and bp dropped as low as 60s. Drips continue as charted.
[2025-11-03 16:47] LABS: Hematocrit 23.0 % (39.0-52.0); Hemoglobin 8.2 g/dL (13.0-18.0); Mean Corp Hgb Conc. 35.7 g/dL (33.0-37.0); Mean Corpuscular Volume 81.6 fL (80.0-94.0); Platelet Count 229 10^3/uL (130-400); Red Cell Dist. Width 15.7 % (11.5-14.5)
[2025-11-03 16:58] LABS: APTT 40.6 Sec (23.4-35.0); Fibrinogen 646 MG/DL (199-459); INR 1.85; PT 21.5 Sec (11.4-14.6)
[2025-11-03 17:04] LABS: ALT (SGPT) 26 U/L (0-50); AST (SGOT) 36 U/L (17-59); Albumin 1.8 g/dl (3.5-5.0); Alkaline Phosphatase 111 U/L (38-126); Blood Urea Nitrogen 33 mg/dl (9-20); Calcium 7.3 mg/dl (8.4-10.2); Carbon Dioxide 15 mmol/L (22-30); Chloride 108 mmol/L (98-107); Estimated Creatinine Clearance 32 ml/min; Glucose 162 mg/dl (70-99); Magnesium 1.9 mg/dl (1.6-2.3); Potassium 4.2 mmol/L (3.5-5.1); Sodium 133 mmol/L (135-145); Total Protein 4.3 g/dl (6.3-8.2); eGFR 21.61
--- NOTE | 2025-11-03 17:48 | W.PN.UPDATE ---
Update Note
Progress Note Update
Worsening metabolic acidosis
Unable to dialyze
Unfortunately no meaningful improvement on hemodynamics
No plans for surgery due to significant hemodynamic instability
Prognosis is grim
Will start bicarbonate drip
DNR status has been instituted
Hopefully family can come to decide on goals of care.
Additional critical care time 15 min
[2025-11-03] MEDS: MAGNESIUM SULFATE 100 IV (18:34)
[2025-11-03] MEDS: SODIUM BICARBONATE 1150 MEQ IV (19:57)
--- NOTE | 2025-11-03 20:00 | PTCARENOTE ---
Rec'd patient from off-going nurse. Hand-off drip validation done together. See worklist for drip charting. Patient is sedated, arouses to care but does not follow commands. PERRLA +2. Restraints intact. Afebrile. Patient is in sinus rhythm with
wide QRS. +1/2 lower extremity edema, pulses obtained with doppler in lower extremities. 8.0 ETT @ 24 at the lip. Changed to R side of patient's mouth. A/C rate 16 TV 500, 40%, 5 peep. Lung sounds coard bilaterally. Scant secretions orally and from
ETT. No bowel sounds, patient in discontinuity. Wound vac draining scant bloody output around dressing. NG tube draining intermittent suction, see worklist for output. Patient is anuric at baseline. IV sites intact.
[2025-11-04] VITALS (14 sets, daily range): BP systolic 104–174; BP diastolic 44–51; BMI 30.4
--- NOTE | 2025-11-04 | PTCARENOTE ---
Continue to wean epi as tolerated.
[2025-11-04] MEDS: ATIVAN 1 MG IV (02:06)
[2025-11-04] MEDS: NEO-SYNEPHRINE 1% 260 MG IV (02:08)
--- NOTE | 2025-11-04 02:14 | PTCARENOTE ---
Patient's wound vac leaking increased amount of bloody drainage. CERTIFIED PEDIATRIC NURSE PRACTITIONER made aware. Dressing reinforced with ABDs. Patient also started tremoring and shaking of head slightly. PRN Ativan given d/t c/f for seizure like behavior. Epi off at this time.
[2025-11-04] MEDS: FLAGYL 500 MG 100 IV (02:30)
[2025-11-04] MEDS: SUBLIMAZE 50 MCG IV ×5 (02:33→21:24)
[2025-11-04] MEDS: LEVOPHED 258 MG IV ×3 (03:23→12:34)
[2025-11-04 03:33] LABS: B.E. -3.3 mmol/L; HCO3 20.6 mmol/L (21-28); O2 Saturation % 99.6 % (94-98); PCO2 31 mmHg (35-48); PO2 160 mmHg (83-108)
--- NOTE | 2025-11-04 03:58 | PTCARENOTE ---
Epi remains off. Able to titrate down on Pio per protocol, see worklist.
[2025-11-04 04:04] LABS: INR 1.70; PT 20.1 Sec (11.4-14.6)
[2025-11-04 04:17] LABS: Hematocrit 20.4 % (39.0-52.0); Hemoglobin 7.0 g/dL (13.0-18.0); Mean Corp Hgb Conc. 34.3 g/dL (33.0-37.0); Mean Corpuscular Volume 83.6 fL (80.0-94.0); Platelet Count 218 10^3/uL (130-400); Red Cell Dist. Width 15.8 % (11.5-14.5)
[2025-11-04 04:30] LABS: Blood Urea Nitrogen 37 mg/dl (9-20); Calcium 6.9 mg/dl (8.4-10.2); Carbon Dioxide 20 mmol/L (22-30); Chloride 107 mmol/L (98-107); Estimated Creatinine Clearance 29 ml/min; Glucose 134 mg/dl (70-99); Magnesium 2.1 mg/dl (1.6-2.3); Potassium 4.2 mmol/L (3.5-5.1); Sodium 134 mmol/L (135-145); eGFR 18.84
--- NOTE | 2025-11-04 04:45 | PTCARENOTE ---
Wound vac increased output around dressing. ABDs and towels saturated down to bed. ENGINEER THIRD ASSISTANT made aware. Continue to reinforce wound vac. Hgb 7.0. 1 unit PRBC ordered.
[2025-11-04] MEDS: SOLU-CORTEF 50 MG IV ×4 (05:55→23:52)
[2025-11-04] MEDS: SODIUM BICARBONATE 1150 MEQ IV ×2 (06:13→17:35)
--- NOTE | 2025-11-04 07:05 | PTCARENOTE ---
Handoff @ bedside. Pt intubated with bilateral soft wrist restraints intact. He is unresponsive to verbal commands. Grimaced when gently palpated abdomen. PERRLA 2 & sluggish. Right IJ TL CVC with Norepinephrine, Vasopressin, Phenylephrine,
Propofol, Fentanyl per work list. Right FA#20f protective catheter with bicarb drip. Right ac #22g protective catheter flushed and patent. Right radial arterial line transduced. Site CDI. Right IJ non-tunneled HD catheter capped. Dressing CDI.
Doppler pedal pulses. +2 anasarca. #8ETT secured 24cm right lip. Loosened ETT straps due to inability to place 1 finger under straps. ETT moved more centered and off of the far right side of his mouth due to lip being pinched. Tongue protruding from
his mouth. Thorough mouth care performed. Copious oral secretions pooled in the back of his mouth, mixed, clear, maroon and brown. Mouth moisturizer placed on his tongue & lips. Tolerating ventilator settings AC 16/500/.40/+5. Breath sounds dim
posteriorly. Abdomen with ab-thera wound vac currently off. Copious amounts of serosanguineous bloody drainage noted on abdominal towel roll. Absent bowel sounds x4. Right Nare Young sump secured @ 60cm connected to LIWS, draining green bilious
secretions. Flushed as ordered. Anuric. Safe environment maintained. He was informed of the plan of care. He is unable to learn due to unresponsiveness.
[2025-11-04] MEDS: PITRESSIN 100 IV ×2 (07:07→17:50)
--- NOTE | 2025-11-04 08:01 | W.PN.NEPH.PH ---
Today's Communication / Plan
-
Initiate CRRT
Maintain MAP at 60 with pressor support
Assessment/Plan
-
Impression:
End-stage renal disease.
ischemic bowel status post resection 10/30/25
shock
AV graft
GI bleed
Anemia.
Chronic hypotension on midodrine support
Hyperphosphatemia.
mechanical aortic valve on chronic anticoagulation
AFib. Severe tricuspid regurgitation and severe pulmonary hypertension, heart failure reduced ejection fraction 45%
Plan:
Remains critically ill on 3 pressor support and intubated
Lactic acid
status post OR 2nd time for necrotic tissue removal 11/01
? OR again today for exploration of necrotic tissue
Will proceed with initiation of CRRT as patient too hemodynamically unstable for conventional dialysis
prognosis poor at best unfortunately

31 minutes critical care time
-
-
Date of Service: November 04, 2025
CC / HPI / ROS
-
Chief Complaint:
septic shock
History of Present Illness:
ischemic bowel septic shock and chronic dialysis MWF
Hemodynamically unstable on 3 pressors
Remains intubated
Remains on sodium bicarbonate IVFs at this time
Review of Systems:
Wound VAC
intubated/sedated
No fevers
Labs
-
Labs:
WBC 22.6 10^3/uL (4.8-10.8) H 11/04/25 03:26
RBC 2.44 10^6/uL (4.70-6.10) L 11/04/25 03:26
Hgb 7.0 g/dL (13.0-18.0) L 11/04/25 03:26
Hct 20.4 % (39.0-52.0) L* 11/04/25 03:26
Plt Count 218 10^3/uL (130-400) 11/04/25 03:26
Sodium 134 mmol/L (135-145) L 11/04/25 03:26
Potassium 4.2 mmol/L (3.5-5.1) 11/04/25 03:26
Chloride 107 mmol/L (98-107) 11/04/25 03:26
Carbon Dioxide 20 mmol/L (22-30) L 11/04/25 03:26
BUN 37 mg/dl (9-20) H 11/04/25 03:26
Creatinine 3.7 mg/dL (0.7-1.3) H 11/04/25 03:26
eGFR 18.84 11/04/25 03:26
Glucose 134 mg/dl (70-99) H 11/04/25 03:26
Calcium 6.9 mg/dl (8.4-10.2) L* 11/04/25 03:26
Phosphorus 4.2 mg/dl (2.5-4.5) 11/04/25 03:26
Albumin 1.8 g/dl (3.5-5.0) L 11/03/25 16:40
Physical Exam
-
Vital Signs:
Vital Signs
Temp Pulse Resp BP Pulse Ox
97.6 F 63 17 132/51 100
11/04/25 07:23 11/04/25 07:30 11/04/25 07:30 11/04/25 07:02 11/04/25 07:57
Cardiovascular:: Regular rate and rhythm
Respiratory:: Bilateral: Coarse
Lung Excursion:: Normal
Abdomen:: Distended and Tender (open/wound vac)
Bowel Sounds:: None
Extremity Edema:: +1: Bilateral:
Fang Catheter: No
Other Findings::
intubated and sedated
--- NOTE | 2025-11-04 08:47 | W.PN.GS2 ---
Today's Communication / Plan
-
-- Exploratory laparotomy, reopening of recent, ABThera dressing change, possible bowel resection
-- NPO, IVF
-- Antibiotics: Ceftriaxone, Flagyl, Vancomycin
Assessment / Plan
-
50M from [facility] with h/o ESRD on HD, HFrEF, AF, Mechanical AV, cirrhosis, chronically O2 dependent who presented with shock
POD 4/3 s/p ex lap with small bowel resection for necrotic and ischemic bowel, in discontinuity with ABThera vac closure
Pt remains critically ill and has deteriorated over the past 24-48 hours. He continues on pressor support.
He has received a total of 3unit of blood and he remains in the 7's.
His lactate previously normalized
Nephrology following - CRRT resumed
WBC trending up today
Discussion with both the patient's brother and sister. Discussed that he remains critically ill. Some improvement in his hemodynamics with epinephrine able to be weaned off and improved blood pressures with the ability to start CRRT. That being
said he continues to be critically ill and likely has an ongoing process within his abdomen. Initial cause for his ischemic bowel likely embolic given his prior history, possibly low-flow given his valvular issues and chronic hypotension.
Currently is ABThera VAC is saturated and nonfunctional.
Options for management reviewed. Specifically, we discussed comfort measures only versus continuing current medical care. We specifically discussed the option of return to the OR for dressing change and abdominal exploration. The indications and
advantages of proceeding to OR exploration would be a more definitive answer on if this will be a survivable event. Suspect that it will not and that operative exploration will not change the ultimate trajectory of his current clinical course.
Though less important, operative exploration will also provide a dressing change to allow for a more functional VAC. The procedure itself, as well as the risks, benefits, and alternatives was discussed with the patient's sister. Specifically, we
discussed the risks of bleeding, infection, injury to surrounding structures, need for further operations, and general anesthetic complications. All questions answered. Telephone consent obtained
Plan:
-- Exploratory laparotomy, reopening of recent, ABThera dressing change, possible bowel resection
-- NPO, IVF
-- CRRT per nephrology, appreciate recs
-- Antibiotics: Ceftriaxone, Flagyl, Vancomycin
Care discussed with family, ICU, and Nephrology
Subjective Data
-
Date of Service: November 04, 2025
Critically ill, ventilated and sedated
Objective Data
-
Intake and Output
11/03/25 11/04/25 11/05/25
06:59 06:59 06:59
Intake Total 5150.8 / 5326.6 5141.2 / 5325.4 434.2 / 434.2
Output Total 3581 / 3581 500 / 500
Balance 1569.8 / 1745.6 4641.2 / 4825.4 434.2 / 434.2
Intake:
IV fluids (Total) 2442.0 / 2587.8 3829.8 / 4014.0 184.2 / 184.2
Epi 28.2 / 28.2 99.6 / 99.6
Fent 347.7 / 362.7 237.2 / 247.2
Heparin 198.0 / 204.0 31.0 / 31.0
Levo 1118.8 / 1175.1 1345.8 / 1402.1 56.3 / 56.3
Phenylephrine 150 / 195 655.8 / 661.8 6 / 6
Prop 384.9 / 399.4 146.5 / 149.4 2.9 / 2.9
Sterile Water For Injection 1100 / 1200 100 / 100
1000 ml 1,000 ml @ 100 mls/hr
IV .[id number] VLADIMIR with Sodium
Bicarbonate 150 Meq Rx#:
[id number]
Vasopressin 214.4 / 223.4 213.9 / 222.9 9 /
IV piggybacks 2098.8 / 2098.8 546.4 / 546.4
Amount instilled into GI Tube ( 110 / 140 180 / 180
Total)
[place] Sump 110 / 140 180 / 180
Blood Products 250 / 250 335 / 335
Packed red blood cells 250 / 250 335 / 335
Blood Product Amount Infused ( 250 / 250 250 / 250 250 / 250
mL)
Packed Rbc Leukoreduced Unit 0 / 0 250 / 250
[id number]
Packed Rbc Leukoreduced Unit 250 / 250
[id number]
Packed Rbc Leukoreduced Unit 250 / 250
[id number]
Output:
Drain Output (Total) 100 / 100
Throughout Abdomen Wound Vac 100 / 100
Gastrointestinal tube output ( 0 / 0 500 / 500
Total)
[place] Sump 0 / 0 500 / 500
Urine, Voided 0 / 0 0 / 0
CRRT - Actual ultrafiltration 3481 / 3481
volume
Vital Signs
Temp Pulse Resp BP Pulse Ox
97.6 F 63 17 132/51 100
11/04/25 07:23 11/04/25 07:30 11/04/25 07:30 11/04/25 07:02 11/04/25 07:57
Lab Results
11/04/25 03:26
11/04/25 03:26
Calcium 6.9 mg/dl (8.4-10.2) L* 11/04/25 03:26
Phosphorus 4.2 mg/dl (2.5-4.5) 11/04/25 03:26
Magnesium 2.1 mg/dl (1.6-2.3) 11/04/25 03:26
Total Bilirubin 1.9 mg/dl (0.2-1.3) H 11/03/25 16:40
Direct Bilirubin 2.1 mg/dl (0.0-0.4) H 10/31/25 06:51
AST 36 U/L (17-59) 11/03/25 16:40
ALT 26 U/L (0-50) 11/03/25 16:40
Alkaline Phosphatase 111 U/L (38-126) 11/03/25 16:40
Total Protein 4.3 g/dl (6.3-8.2) L 11/03/25 16:40
Albumin 1.8 g/dl (3.5-5.0) L 11/03/25 16:40
Physical Exam
-
Gen: ventilated and sedated
Abd: soft, winces to palpation, distended/obese, midline ABThera dressing saturated in clot/VAC not holding suction
Patient has a andre catheter: Yes
Patient has a central line: Yes
[2025-11-04] MEDS: SUBLIMAZE 100 IV ×2 (08:52→18:08)
[2025-11-04] MEDS: KEPPRA 1000 MG IV ×2 (08:57→19:28)
[2025-11-04] MEDS: NSS (PRESERVATIVE FREE) 10 ML IV ×2 (08:59→19:29)
[2025-11-04] MEDS: PROTONIX IV 40 MG IV ×2 (08:59→19:28)
[2025-11-04] MEDS: SANDOSTATIN 100 MCG SC ×2 (09:00→19:29)
[2025-11-04] MEDS: CALCIUM GLUCONATE 130 MG IV (09:01)
[2025-11-04] MEDS: FLORINEF 0.1 MG TUBE ×2 (09:09→10:41)
--- NOTE | 2025-11-04 09:10 | W.PN.HOSP.TC ---
Today's Communication/Plan
-
cont current care for now without escalation
awaiting patient's sister's arrival before potential transition to comfort measures/terminal wean
Inpt Hospice appropriate if not imminent
Assessment / Plan
Assessment / Plan
Physical Exam
Gen: NAD, NCAT
Eyes: Pinpoint pupils b/l, no scleral icterus
CV: regular rate rhythm, +S1/S2, no m/r/g.
Resp: remains CTAB anteriorly, no rales, wheezes, or rhonchi. Intubated
Abd: absent BS, wound vac in place, soft
Skin: No rashes.
Neuro: sedated
10/31/25 12:40 Blood/Venous Blood Culture - Preliminary
No Growth in 48 hours- Final report to follow
10/31/25 12:10 Blood/Venous Blood Culture - Preliminary
No Growth in 48 hours- Final report to follow
10/31/25 12:35 Sputum Respiratory Culture - Final
Jessica albicans
10/31/25 12:35 Sputum Gram Stain - Final
CT A/P:
Mild small bowel dilatation suggesting ileus versus early or partial small bowel obstruction. New. Associated pneumatosis and mesenteric venous gas suggesting ischemia. New
Mild airspace disease in the right lower lung field concerning for pneumonia. Atelectasis not excluded. New
Moderate left lower lobe atelectasis versus scarring. Developing pneumonia not excluded. New
Rectal wall thickening concerning possible right-sided renal mass and proctitis. New.
Nodular hepatic margin suggesting cirrhosis. Stable
Mild ascites about the liver. New
Bilateral renal atrophy. Stable
Moderate cardiomegaly. Stable
Septic shock due to SBO causing ischemic bowel:
-INR reversed on admission with Vit K and prothrombin complex
-s/p 10/31AM exploratory laparotomy, small bowel resection, placement of temporary abdominal closure device by Dr. Denney. Note, as per OR report, '90cm frankly necrotic mid small bowel resected; 2 areas of patchy ischemia in proximal jejunum each
encompassing ~50% circumference, this area exhibited signs of peristalsis and was left in situ.'
-s/p 11/01 return to OR with further bowel resection
-cont sedation with propofol/fentanyl
-cont vasopressors Levophed/Pio/epi/vasopressin gtts as necessary for now (hypotensive on CRRT which has now been stopped)
-remains intubated, cont vent mgmt as per ICU
-cont Vanc/Micafungin, rocephin/flagyl switched to meropenem as per ID, BCxs NGTD
-currently on Octreotide SC Q12H
-discussed with surgery and equipment maintenance technician
-s/p 1U pRBCs (given for hypotension and dropping Hb, likely acute blood loss anemia)
Reported seizure activity:
-on Lamictal DRYWALL WORKER
-started Keppra 1g IV Q12H
ESRD:
-despite 4 vasopressors pt was hypotensive on CRRT
-renal following
Other problems:
h/o SJM Mechanical MVR 1997: cont heparin gtt
Permanent Afib: cont heparin gtt.
Severe TR
Anemia of chronic renal disease: s/p 1U pRBCs as above
h/o ICD explant due to infection 2005
h/o CVA
Chronic HFrEF with recovered EF, now EF 45-50% on most recent echo: daily wts, I/Os
Hypokalemia, resolved
Hyponatremia, mild
Hypocalcemia, resolved
Very poor prognosis
Palliative eval appreciated, family POAs sister Autumn and brother Telly in agreement with pursuing comfort measures/hospice. Awaiting sister's arrival from [place] so she can see patient before potentially initiating comfort measures and terminal
wean. Remains on vent with current treatments pending family arrival. Family in agreement, no further escalation of care or surgical intervention.
Total Critical Care Time__38___ minutes. I was immediately available to the patient and staff. I personally examined, reviewed labs, diagnostic images/reports, interpretations, treatment plans, discussed patient care with other providers, entered
orders as appropriate and documented the medical record.
Anticipated Discharge: 24 - 48 hours
Subjective/Interval History
-
Date of Service: November 04, 2025
sedated intubated
Objective Data
-
Labs:
Laboratory Results
11/04/25
03:26
WBC 22.6 H
Hgb 7.0 L
Hct 20.4 L*
Plt Count 218
PT 20.1 H
INR 1.70
HCO3 20.6 L
Sodium 134 L
Potassium 4.2
Chloride 107
Carbon Dioxide 20 L
BUN 37 H
Creatinine 3.7 H
Glucose 134 H
Calcium 6.9 L*
Vital Signs:
Vital Signs
Temp Pulse Resp BP Pulse Ox
97.6 F 63 17 132/51 100
11/04/25 07:23 11/04/25 07:30 11/04/25 07:30 11/04/25 07:02 11/04/25 07:57
I&O
11/03/25 11/04/25 11/05/25
06:59 06:59 06:59
Intake Total 5150.8 / 5326.6 5141.2 / 5325.4 434.2 / 434.2
Output Total 3581 / 3581 500 / 500
Balance 1569.8 / 1745.6 4641.2 / 4825.4 434.2 / 434.2
--- NOTE | 2025-11-04 09:11 | W.PN.ID1 ---
Date of Service
Date of Service: November 04, 2025
Today's Communication
switch to meropenem
continue vancomycin/micafungin
Assessment / Plan
Septic Shock - ongoing
Ischemic Bowel
Possible Pneumonia - less likely per pulmonary due to mechanics
COPD
Cirrhosis
Mechanical MV
ESRD restarted CRRT
Reported Allergy to Zosyn if tolerates amoxicillin likely not a real allergy
Ileus
- bowel in discontinuity, possible return to the OR at some point if stabilizes
- blood cultures x2 in progress no growth to date
- sputum culture with C albicans normal mook
- ileus noted
- start meropenem, stop ceftriaxone/metronidazole
- c/w vancomycin
- c/w micafungin
- possible rectal mass seen on CT a/p - eventual assessment
patient remains critically ill, prognosis guarded
Chief Complaint
-: Leukocytosis and Other (septic shock)
Subjective / Review of Systems
afebrile
epinephrine weaned off, remains on norepi, phenylephrine dose notably lower, vaso still on
drainage around the wound vac - saturated abds, towels down to the bed
tremoring and head shaking - concern for possible seizure - ativan given
was too unstable for the OR
started on bicarbonate
getting transfusions of PRBCs for bleeding into wound vac
now DNR
Vital Signs / Physical Exam
Vital Signs
Vital Signs
Temp Pulse Resp BP Pulse Ox
97.6 F 63 17 132/51 100
11/04/25 07:23 11/04/25 07:30 11/04/25 07:30 11/04/25 07:02 11/04/25 07:57
Physical Exam
Constitutional: Acutely Ill and Toxic
Cardiovascular: Regular Rate and S1/S2; Negative Murmur or Rub
Pulmonary: Clear and Symmetric; Negative Wheezes or Rales
Gastrointestinal: Soft, Non Tender, Non Distended and Normal Bowel Sounds
Skin: Warm and Dry; Negative Rash or Jaundice
Wound: Other (wound vac with large amount of clotted blood beneath the clear dressing)
Neurological: Negative Awake
Objective Data
Lab Data
Lab Results
11/04/25 03:26
11/04/25 03:26
PT 20.1 Sec (11.4-14.6) H 11/04/25 03:26
INR 1.70 11/04/25 03:26
APTT 40.6 Sec (23.4-35.0) H 11/03/25 16:40
Estimated Creat Clear 29 ml/min 11/04/25 03:26
Lactic Acid 1.4 mmol/L (0.7-2.0) 11/03/25 11:29
Total Bilirubin 1.9 mg/dl (0.2-1.3) H 11/03/25 16:40
AST 36 U/L (17-59) 11/03/25 16:40
ALT 26 U/L (0-50) 11/03/25 16:40
Alkaline Phosphatase 111 U/L (38-126) 11/03/25 16:40
Most recent labs reviewed.
Micro Results:
10/31/25 12:40 Blood Culture - Preliminary
Blood/Venous No Growth in 72 hours- Final report to follow
10/31/25 12:10 Blood Culture - Preliminary
Blood/Venous No Growth in 72 hours- Final report to follow
10/31/25 12:35 Respiratory Culture - Final
Sputum Jessica albicans
Gram Stain - Final
Chest X-Ray: Image Reviewed and Report Reviewed
--- NOTE | 2025-11-04 09:13 | W.SUR.PREOP ---
Pre-Operative Surgical Note
-
I have examined this patient prior to the performance of the scheduled procedure.
The patient's condition is unchanged from the time of the current History and
Physical and the patient is able to undergo the scheduled procedure.
--- NOTE | 2025-11-04 10:14 | W.PN.SURGUPD ---
Surgical Update
Surgical Update
Case discussed with palliative care who had a further discussion with the patient's son and daughter. A decision has been made to focus on comfort measures only. Based on this decision no plans for surgical exploration. Continue with care as per
primary team. Please call with any questions or concerns.
--- NOTE | 2025-11-04 10:22 | W.PN.PAL2 ---
Today's Communication
-
I had a 3 way call with patient sister Autumn and brother Norris. Autumn was hoping to set out at 12 noon, I explained that his team had shared with me that he was planned for further exploration today but as per my previous discussions with them
to continue goals of care discussion, they have agreed to comfort versus surgical exploration and asked what inpatient hospice would do. I explained the philosophy would change to comfort focused and they would like to focus on keeping him
comfortable at this time.
Assessment / Plan
-
Assessment/Plan:
50 YO M with ischemic bowel and S/P bowel resction, remains critically ill and on multiple pressors.
Family would like to focus on comfort directed measures.
Goals of Care Discussion
-
Individuals Present for Discussion & Relationship to Patient:
Phone call to Autumn and Kymberlyy his sister and brother to explain where we are at after speaking to Adalberto Will and Chris, they understand that he is critically ill and his clinical condition has further deteriorated in last 2 days and unable to
tolerate HD, CRRT planed but pt continues on 3 pressors,they shared that further exploration in OR today has been explained to them by the surgeon, at this point they would like to focus on keeping him comfortable, brother asked what would change in
care and I explained that at this time goal was treatment focused/ restorative but if we switched to in-patient hospice goal would be focused on comfort directed measures and we would utilize medications to ensure he does not suffer, addressing
symptoms that arise and keeping comfortable.
Patient able to participate in discussion at time of visit: No
Objective Data
-
Objective Data:
Vital Signs
Temp Pulse Resp BP Pulse Ox
97.5 F 63 17 132/51 100
11/04/25 10:17 11/04/25 07:30 11/04/25 07:30 11/04/25 07:02 11/04/25 10:17
Laboratory Results
11/04/25 03:26
11/04/25 03:26
PT 20.1 Sec (11.4-14.6) H 11/04/25 03:26
INR 1.70 11/04/25 03:26
APTT 40.6 Sec (23.4-35.0) H 11/03/25 16:40
Total Protein 4.3 g/dl (6.3-8.2) L 11/03/25 16:40
Albumin 1.8 g/dl (3.5-5.0) L 11/03/25 16:40
Palliative Performance Scale
Palliative Performance Scale:
PPS Level Ambulation Activity & Evidence of Disease Self Care Intake Conscious Level
100% Full Normal Activity & Work; Full Intake Full
No Evidence of Disease
90% Full Normal Activity & Work; Full Normal Full
Some Evidence of Disease
80% Full Normal Activity with Effort Full Normal or Full
Some Evidence of Disease Reduced
70% Reduced Unable Normal Job/Work Full Normal or Full
Significant Disease Reduced
60% Reduced Unable Hobby/Housework Occasional Normal or Full or Confusion
Significant Disease Assistance Reduced
50% Mainly Sit/Lie Unable to do Any Work Considerable Normal or Full or Confusion
Extensive Disease Assistance Req'd Reduced
40% Mainly in Bed Unable to do Most Activity Mainly Assistance Normal or Full or Drowsy;
Extensive Disease Reduced +/- Confusion
30% Totally Bed Unable to do Any Activity Total Care Normal or Full or Drowsy;
Bound Extensive Disease Reduced +/- Confusion
20% Totally Bed Bound Unable to do Any Activity Total Care Minimal to Full or Drowsy;
Extensive Disease Sips +/- Confusion
10% Totally Bed Bound Unable to do Any Activity Total Care Mouth Care Drowsy or Coma;
Extensive Disease Only +/- Confusion
0%
PPS Score Level:
Palliative Performance Score Response
Palliative Performance Score Response: 20%
Physical Exam
-
General: Intubated and Appears Chronically Ill
HEENT: Endotracheal Tube in Place
Respiratory: Clear to Auscultation
Cardiac: S1/S2
GI: Distended and Other (absent BS)
Skin: Warm and Dry
Neuro: Sedated
Care Reviewed
Data Reviewed
Medical Tests: I reviewed
Reviewed with: Physician, Nurse and Other (Surgeon, customer quality specialist, hospitalist .)
[2025-11-04] MEDS: MYCAMINE 105 MG IV (10:25)
[2025-11-04] MEDS: STERILE WATER FOR INJECTION 10 ML IV (10:40)
[2025-11-04] MEDS: MERREM 500 MG IV (10:40)
--- NOTE | 2025-11-04 11:52 | PTCARENOTE ---
[address] Perez notified the tem that Dr. Deal, Palliative Care physician, had a 3way conversation with the pt's sister & brother regarding GOC. They wish to keep him comfortable at this time and not pursue surgical intervention at
this time. It was also passed on that Autumn, the pt's sister, Autumn will be arriving to the hospital around 1430. CRRT not to be started per Dr. Zuñiga, EEG cancelled.
[2025-11-04] MEDS: LANOXIN 62.5 MCG TUBE (11:58)
--- NOTE | 2025-11-04 12:58 | W.PN.INTV ---
Today's Communication / Plan
Recommendations
- Discussed with surgery and palliative care service
- Transition to comfort focused care
- Computer Science Intern service will be available as needed
Assessment
-
-
50-year-old man with a recent history of GI bleed, he was transferred in early October to [facility]-underwent enteroscopy with ablation of bleeding. He was discharged about 2 days ago to his custodial.
He reported ongoing abdominal pain before and after discharge. Admitted to [facility] 10/31/2025 with severe abdominal pain. Found to have bowel ischemia underwent exploratory laparotomy emergently-transferred to the critical care unit
intubated and on multiple pressors.
Goals of care update 11/04. Patient examined at bedside, all vasopressin and Levophed. Currently weaned off phenylephrine. Currently sedated with propofol and fentanyl. Received Keppra for concern for seizures. CRRT was about to be initiated,
held in view of transition to comfort focused care. Discussed with palliative care team as well as surgery service. Patient's family has opted to pursue comfort focused care only. Prognosis is very poor. Minimal secretions noted in the NG tube.
Current vent settings 500/16/40%/5.
Underlying medical diagnoses
Septic yffji-[id number] source
CT of the abdomen pelvis showing fluid-filled dilated small bowel loops measuring up to 3.1 cm with transition point in the right lower quadrant reflecting small bowel obstruction likely due to underlying adhesions, there is extensive small bowel
pneumatosis as well as mesenteric venous gas reflecting bowel ischemia. Scattered abdominal free fluid.
Hypoxemic respiratory failure postoperatively-requiring mechanical ventilation.
Bowel ischemia-status post exploratory laparotomy 10/30/2024
90cm frankly necrotic mid small bowel resected; 2 areas of patchy ischemia in proximal jejunum each encompassing ~50% circumference, this area exhibited signs of peristalsis and was left in situ
Back to the OR 11/01/2025-exploration and removal of additional necrotic small bowel
Coumadin coagulopathy-status post reversal
History of aortic valve replacement
Conditions present prior admission:
End-stage renal disease on hemodialysis
Heart failure with reduced ejection fraction
Pulmonary hypertension-possibly postcapillary. Post mitral valve disease.
Type 2 diabetes
Hyperlipidemia
Atrial fibrillation
Hypothyroidism
Chronic anticoagulation status post mitral valve- mechanical
Obstructive sleep apnea
GERD
[facility] resident
Recent GI bleed-transferred to [facility] for enteroscopy and ablation of small bowel bleeding. 10/2025
Critical care statement: A total of 39 minutes of critical care time was provided for this patient today. This includes management of unstable vital signs, evaluation of the patient at bedside, reviewing the patient's pertinent medical records
including ventilator settings, arterial blood gases, radiographs, microbiology, laboratory evaluations and discussion with primary team, critical care nursing, and respiratory therapy.
Subjective Dataa
Subjective Data
Date of Service:
Date of Service: November 04, 2025
Chief Complaint: Computer Science Intern Follow Up (Septic shock/hypoxemic respiratory failure requiring intubation mechanical ventilator)
Subjective:
Patient critically ill, currently intubated, mechanically ventilated and sedated.
Review of Systems
General: Unobtainable - Sedation
Objective Data
Data Reviewed
Vital Signs / I&O / Oxygen:
Vital Signs
Temp Pulse Resp BP Pulse Ox
97.5 F 68 16 132/51 100
11/04/25 11:36 11/04/25 12:30 11/04/25 12:30 11/04/25 07:02 11/04/25 12:30
Intake and Output
11/03/25 11/04/25 11/05/25
06:59 06:59 06:59
Intake Total 5150.8 / 5326.6 5141.2 / 5325.4 1635.6 / 1635.6
Output Total 3581 / 3581 500 / 500
Balance 1569.8 / 1745.6 4641.2 / 4825.4 1635.6 / 1635.6
SaO2 [A/C] 100
SaO2 100
Nasal Cannula flow liters per 4
minute
Physical Exam
General: Comfortable
HEENT: Normocephalic and Other (ET tube in place without secretion, swollen tongue noted)
Cardiovascular: S1-S2 and Peripheral Edema
Respiratory: Clear and Non-Labored Respirations
GI: Distended, Other (NG tube in place) and Other (Open abdominal wound, absent bowel sounds)
Neurology: Other ( on mechanical ventilation, sedated able to move 4 extremities. Follows commands with sedation breaks.) and Other (No nystagmus appreciated)
Labs/Micro/Reports
Lab Data
11/04/25 03:26
11/04/25 03:26
Laboratory Results
11/03/25 11/04/25
16:40 03:26
PT 21.5 H 20.1 H
INR 1.85 1.70
APTT 40.6 H
pH 7.43
pCO2 31 L
pO2 160 H
HCO3 20.6 L
O2 Delivery Level
Microbiology
10/31/25 12:10 Blood/Venous Blood Culture - Preliminary
No Growth in 4 days- Final report to follow
10/31/25 12:40 Blood/Venous Blood Culture - Preliminary
No Growth in 72 hours- Final report to follow
10/31/25 12:35 Sputum Respiratory Culture - Final
Jessica albicans
10/31/25 12:35 Sputum Gram Stain - Final
--- NOTE | 2025-11-04 12:59 | PHA.VAN.FU ---
Vancomycin Assessment / Plan
- Assessment
Hemodialysis Schedule: Other (CRRT @ 1.5 L/H - currently held)
WBC's are: Stable
Concomitant Antimicrobials: meropenem
- Assessment - Therapeutic Drug Monitoring
Random Level: 26.5 - drawn ~18H after previous dose of 1000mg
- Dosing Plan
Dosing by Level: Hold off on dosing today
- Monitoring Plan
Random Level: 11/05 0600
- Follow Up
Pharmacy will continue to follow.
Vancomycin Follow UP
- -
Patient Age: 50
Patient Sex: Male
Vancomycin Day #: 5
Indication: Pulmonary/Respiratory
Requesting Provider: Dr. Walker
Pertinent Antimicrobial Allergies:
PIP/TAZO=ITCHING, tolerates amoxicillin and cepharlosporins
Height / Weight:
Height 6 ft
Actual Weight 101.7 kg
Pertinent Past Medical History: ESRD on dilaysis MWF, COPD, DM, chronic respiratory failure, [place] resident
- Vital Signs / Lab Results
Temp Pulse Resp BP Pulse Ox
97.5 F 68 16 132/51 100
11/04/25 11:36 11/04/25 12:30 11/04/25 12:30 11/04/25 07:02 11/04/25 12:30
Lab Results - Hematology
11/01/25 11/02/25 11/02/25
20:43 00:49 04:50
WBC 21.2 H 20.0 H 20.0 H
11/02/25 11/02/25 11/02/25
06:00 06:45 08:59
WBC Cancelled Cancelled 18.1 H
11/02/25 11/02/25 11/02/25
12:47 17:00 20:50
WBC 18.0 H 17.4 H 17.1 H
11/03/25 11/03/25 11/03/25
01:10 05:00 06:00
WBC 17.8 H Cancelled Cancelled
11/03/25 11/03/25 11/03/25
09:00 11:29 16:40
WBC Cancelled 19.9 H 21.3 H
11/04/25
03:26
WBC 22.6 H
Lab Results - Chemistry
11/01/25 11/02/25 11/02/25
20:43 00:49 04:50
BUN 56 H 50 H 46 H
Creatinine 5.7 H* 5.3 H* 4.6 H*
Estimated Creat Clear 17 18 23
Albumin
11/02/25 11/02/25 11/02/25
06:00 08:59 12:47
BUN Cancelled 39 H 35 H
Creatinine Cancelled 4.2 H* 3.6 H
Estimated Creat Clear Cancelled 25 30
Albumin
11/02/25 11/02/25 11/03/25
17:00 20:50 01:10
BUN 32 H 29 H 26 H
Creatinine 3.3 H 3.0 H 2.7 H
Estimated Creat Clear 32 35 39
Albumin
11/03/25 11/03/25 11/03/25
05:00 06:01 06:01
BUN Cancelled 28 H
Creatinine Cancelled 2.7 H
Estimated Creat Clear Cancelled 39
Albumin 1.8 L Cancelled
11/03/25 11/03/25 11/03/25
09:00 11:29 16:40
BUN Cancelled 29 H 33 H
Creatinine Cancelled 3.0 H 3.3 H
Estimated Creat Clear Cancelled 35 32
Albumin 1.8 L 1.8 L
11/04/25
03:26
BUN 37 H
Creatinine 3.7 H
Estimated Creat Clear 29
Albumin
11/01/25 11/01/25 11/03/25
13:50 18:01 03:32
Lactic Acid 2.2 H 1.5 1.3
11/03/25
11:29
Lactic Acid 1.4
Microbiology Results
10/31/25 12:10 Blood Culture - Preliminary
Blood/Venous No Growth in 4 days- Final report to follow
10/31/25 12:40 Blood Culture - Preliminary
Blood/Venous No Growth in 72 hours- Final report to follow
10/31/25 12:35 Respiratory Culture - Final
Sputum Jessica albicans
Gram Stain - Final
Therapeutic Drug Monitoring
Random Vancomycin 26.5 ug/ml 11/04/25 03:26
--- NOTE | 2025-11-04 13:31 | CM ---
CM consulted for hospice. Per chart, family agreeing for comfort measures.
Placed hospice referral. TT hospice aide to review
Plan: hospice follow up
--- NOTE | 2025-11-04 13:40 | HOSPNOTE ---
Referral received and the patient will be placed on comfort. I understand that the sister is driving in from [place] and will follow up with sister tomorrow and support. More information to follow.
--- NOTE | 2025-11-04 14:30 | PTCARENOTE ---
Continuing to taper vasopressor support as ordered. With repositioning he has eye twitching and mouth twitching. Stops spontaneously with no tactile stimuli. Grimace with repositioning, coughing intermittently. Suctioning for thick clear via ETT.
Moderate oral secretions. Safe environment maintained.
--- NOTE | 2025-11-04 16:25 | PTCARENOTE ---
I reached out to Autumn [phone] regarding her coming to visit to speak with the care team. She verbalized to me that she cancelled her ride here today, but will be here tomorrow before 12nn, she booked a train. She was made aware that the
Hospice nurse was waiting her arrival to go over Hospice and provide information. She verbalized to me that she just wants her brother to be kept comfortable. Autumn was informed that no 'comfort measures' have been instituted regarding titration
of meds specifically for end of life comfort. SHe asked to have the hospice nurse call her @ [phone].
--- NOTE | 2025-11-04 18:15 | PTCARENOTE ---
Propofol drip off JAN. Per Dr. Glover will continue with Fentanyl drip only w/PRN bolus. Propofol drip off.
--- NOTE | 2025-11-04 20:33 | PTCARENOTE ---
Rec'd patient from off-going nurse. Hand-off drip validation done. Patient arouses to care, grimacing, pulling head away, raising right arm towards tube, and kicking feet. PRN doses given, fent drip increased. BUCKET CHUCKER made aware. Plan to restart prop if
fent drip increases to 200 with no relief. Patient is not following commands. NSR with BBB on monitor, rates 50s-60s. See worklist for drips. +2 generalized edema, LE pulses obtained with doppler. 8.0 ETT @ 24, see worklist for ventilator settings.
Lungs diminished. Abdomen tender, distended. Wound vac reinforced, bloody output. Skin otherwise intact. IV sites intact.
--- NOTE | 2025-11-05 00:05 | PTCARENOTE ---
Fentanyl drip increased due to patient CPOT score, see worklist. Vaso turned off as appropriate for order. Systolic remaining > 90. Just on Levo drip at this time. Wound vac reinforced dressing is in place at this time.
[2025-11-05] MEDS: SUBLIMAZE 100 IV ×5 (00:44→20:46)
[2025-11-05] MEDS: LEVOPHED 258 MG IV (02:03)
[2025-11-05] MEDS: SUBLIMAZE 50 MCG IV ×4 (02:08→11:47)
[2025-11-05] MEDS: DIPRIVAN 100 IV (02:40)
--- NOTE | 2025-11-05 02:50 | PTCARENOTE ---
Propofol drip started due to patient being given multiple fentanyl boluses and increase in drip since beginning of shift. Patient is fighting the ventilator despite prn boluses at this time. See worklist.
[2025-11-05 03:52] LABS: Triglycerides 222 mg/dl (10-149)
[2025-11-05] MEDS: SODIUM BICARBONATE 1150 MEQ IV (04:31)
[2025-11-05] MEDS: SOLU-CORTEF 50 MG IV ×2 (05:12→11:49)
--- NOTE | 2025-11-05 05:17 | PTCARENOTE ---
Wound vac reinforced with new dressing d/t bloody drainage leaking out of dressing.
[2025-11-05 06:00] VITALS: BMI 32.5
--- NOTE | 2025-11-05 07:16 | W.PN.HOSP.TC ---
Today's Communication/Plan
-
awaiting sister POOrion arrival potential terminal wean/comfort measures
Assessment / Plan
Assessment / Plan
Physical Exam
Gen: NAD, NCAT
Eyes: Pinpoint pupils b/l, no scleral icterus
CV: regular rate rhythm, +S1/S2, no m/r/g.
Resp: remains CTAB anteriorly, no rales, wheezes, or rhonchi. Intubated
Abd: absent BS, wound vac in place, soft
Skin: No rashes.
Neuro: sedated
10/31/25 12:40 Blood/Venous Blood Culture - Preliminary
No Growth in 48 hours- Final report to follow
10/31/25 12:10 Blood/Venous Blood Culture - Preliminary
No Growth in 48 hours- Final report to follow
10/31/25 12:35 Sputum Respiratory Culture - Final
Jessica albicans
10/31/25 12:35 Sputum Gram Stain - Final
CT A/P:
Mild small bowel dilatation suggesting ileus versus early or partial small bowel obstruction. New. Associated pneumatosis and mesenteric venous gas suggesting ischemia. New
Mild airspace disease in the right lower lung field concerning for pneumonia. Atelectasis not excluded. New
Moderate left lower lobe atelectasis versus scarring. Developing pneumonia not excluded. New
Rectal wall thickening concerning possible right-sided renal mass and proctitis. New.
Nodular hepatic margin suggesting cirrhosis. Stable
Mild ascites about the liver. New
Bilateral renal atrophy. Stable
Moderate cardiomegaly. Stable
Septic shock due to SBO causing ischemic bowel:
-INR reversed on admission with Vit K and prothrombin complex
-s/p 10/31AM exploratory laparotomy, small bowel resection, placement of temporary abdominal closure device by Dr. Denney. Note, as per OR report, '90cm frankly necrotic mid small bowel resected; 2 areas of patchy ischemia in proximal jejunum each
encompassing ~50% circumference, this area exhibited signs of peristalsis and was left in situ.'
-s/p 11/01 return to OR with further bowel resection
-cont sedation with propofol/fentanyl
-cont vasopressors Levophed/Pio/epi/vasopressin gtts as necessary for now (hypotensive on CRRT which has now been stopped)
-remains intubated, cont vent mgmt as per ICU
-cont Vanc/Micafungin, rocephin/flagyl switched to meropenem as per ID, BCxs NGTD
-currently on Octreotide SC Q12H
-discussed with surgery and supervisor belt and link assembly
-s/p 1U pRBCs (given for hypotension and dropping Hb, likely acute blood loss anemia)
Reported seizure activity:
-on Lamictal ENGINEER [employer]PRODUCT
-started Keppra 1g IV Q12H
ESRD:
-despite 4 vasopressors pt was hypotensive on CRRT
-renal following
Other problems:
h/o SJM Mechanical MVR 1997: cont heparin gtt
Permanent Afib: cont heparin gtt.
Severe TR
Anemia of chronic renal disease: s/p 1U pRBCs as above
h/o ICD explant due to infection 2005
h/o CVA
Chronic HFrEF with recovered EF, now EF 45-50% on most recent echo: daily wts, I/Os
Hypokalemia, resolved
Hyponatremia, mild
Hypocalcemia, resolved
Very poor prognosis
Palliative eval appreciated, family POAs sister Autumn and brother Telly in agreement with pursuing comfort measures/hospice. Awaiting sister's arrival from [place] so she can see patient before potentially initiating comfort measures and terminal
wean. Remains on vent with current treatments pending family arrival. Family in agreement, no further escalation of care or surgical intervention.
Total Critical Care Time__35___ minutes. I was immediately available to the patient and staff. I personally examined, reviewed labs, diagnostic images/reports, interpretations, treatment plans, discussed patient care with other providers, entered
orders as appropriate and documented the medical record.
Anticipated Discharge: Within 24 hours
Subjective/Interval History
-
Date of Service: November 05, 2025
sedated intubated
Objective Data
-
Vital Signs:
Vital Signs
Temp Pulse Resp BP Pulse Ox
97.4 F 64 17 132/51 100
11/05/25 03:15 11/05/25 06:00 11/05/25 06:00 11/04/25 07:02 11/05/25 06:00
I&O
11/04/25 11/05/25 11/06/25
06:59 06:59 06:59
Intake Total 5141.2 / 5325.4 4224.9 / 4224.9
Output Total 500 / 500 500 / 500
Balance 4641.2 / 4825.4 3724.9 / 3724.9
[2025-11-05] MEDS: FLORINEF TUBE (07:23)
[2025-11-05] MEDS: LANOXIN TUBE (07:23)
[2025-11-05] MEDS: KEPPRA 1000 MG IV ×2 (08:15→19:58)
[2025-11-05] MEDS: NSS (PRESERVATIVE FREE) 10 ML IV (08:16)
[2025-11-05] MEDS: PROTONIX IV 40 MG IV (08:16)
[2025-11-05] MEDS: SANDOSTATIN 100 MCG SC (08:16)
--- NOTE | 2025-11-05 08:49 | W.PN.UPDATE ---
Update Note
Progress Note Update
Patient to transition to TRANSFORMATION CONSULTANT when family arrive, recommend stopping antibiotics and antifungals
ID service will no longer actively follow this patient please recall for further questions
[2025-11-05 08:50] VITALS: BP_SYST 110
--- NOTE | 2025-11-05 09:03 | W.PN.NEPH.PH ---
Today's Communication / Plan
-
For hospice care
No dialysis directed
Assessment/Plan
-
Impression:
End-stage renal disease.
ischemic bowel status post resection 10/30/25
shock
AV graft
GI bleed
Anemia.
Chronic hypotension on midodrine support
Hyperphosphatemia.
mechanical aortic valve on chronic anticoagulation
AFib. Severe tricuspid regurgitation and severe pulmonary hypertension, heart failure reduced ejection fraction 45%
Plan:
Remains critically ill on pressor support and intubated
CRRT was not initiated yesterday as we were heading in the palliative direction
Lactic acid
status post OR 2nd time for necrotic tissue removal 11/01
Patient is no longer surgical candidate and palliative care to be directed once family arrives today
Henceforth no dialysis to be further provided
Discussed with ICU nursing
Patient remains critically ill on ventilator and pressor support

31 minutes critical care time
-
-
Date of Service: November 05, 2025
CC / HPI / ROS
-
Chief Complaint:
septic shock
History of Present Illness:
ischemic bowel septic shock and chronic dialysis MWF
Hemodynamically unstable on pressors
Remains intubated
Remains on sodium bicarbonate IVFs at this time
Review of Systems:
Wound VAC
intubated/sedated
No fevers
Labs
-
Labs:
WBC 22.6 10^3/uL (4.8-10.8) H 11/04/25 03:26
RBC 2.44 10^6/uL (4.70-6.10) L 11/04/25 03:26
Hgb 7.0 g/dL (13.0-18.0) L 11/04/25 03:26
Hct 20.4 % (39.0-52.0) L* 11/04/25 03:26
Plt Count 218 10^3/uL (130-400) 11/04/25 03:26
Sodium 134 mmol/L (135-145) L 11/04/25 03:26
Potassium 4.2 mmol/L (3.5-5.1) 11/04/25 03:26
Chloride 107 mmol/L (98-107) 11/04/25 03:26
Carbon Dioxide 20 mmol/L (22-30) L 11/04/25 03:26
BUN 37 mg/dl (9-20) H 11/04/25 03:26
Creatinine 3.7 mg/dL (0.7-1.3) H 11/04/25 03:26
eGFR 18.84 11/04/25 03:26
Glucose 134 mg/dl (70-99) H 11/04/25 03:26
Calcium 6.9 mg/dl (8.4-10.2) L* 11/04/25 03:26
Phosphorus 4.2 mg/dl (2.5-4.5) 11/04/25 03:26
Albumin 1.8 g/dl (3.5-5.0) L 11/03/25 16:40
Physical Exam
-
Vital Signs:
Vital Signs
Temp Pulse Resp BP Pulse Ox
97.2 F 64 17 132/51 98
11/05/25 07:27 11/05/25 06:00 11/05/25 06:00 11/04/25 07:02 11/05/25 08:00
Cardiovascular:: Regular rate and rhythm
Respiratory:: Bilateral: Coarse
Lung Excursion:: Normal
Abdomen:: Distended and Tender (open/wound vac)
Bowel Sounds:: None
Extremity Edema:: +1: Bilateral:
Fang Catheter: No
Other Findings::
intubated and sedated
[2025-11-05] MEDS: MERREM 500 MG IV (10:32)
[2025-11-05] MEDS: STERILE WATER FOR INJECTION 10 ML IV (10:33)
[2025-11-05] MEDS: MYCAMINE 105 MG IV (10:35)
--- NOTE | 2025-11-05 11:15 | HOSPNOTE ---
Sister will not be here until 2pm. Will meet sister and support.
--- NOTE | 2025-11-05 12:08 | PTCARENOTE ---
Systems reviewed. Pt continues to leak blood from wound vac dressing, towels and covidien to absorb blood in abdominal folds. Pt with grimacing and increased coughing, multiple fentanyl boluses given and gtt increased. Propofol as well. Still
waiting on sister who called around 10 to say she was on the train. Hospice and doctors aware.
[2025-11-05 12:42] VITALS: BP_SYST 104
--- NOTE | 2025-11-05 13:16 | PHA.VAN.FU ---
Vancomycin Assessment / Plan
- Assessment
Hemodialysis Schedule: Other (CRRT @ 1.5 L/H - currently held)
In the past 24 hrs, patient has been: Afebrile
Concomitant Antimicrobials: meropenem, micafungin
- Assessment - Therapeutic Drug Monitoring
Random Level: 25.3 - drawn ~24H after previous level of 26.5
Calculated ke: 0.0019
Calculated half life (H): 356
- Dosing Plan
Dosing by Level: Hold off on dosing today
- Monitoring Plan
No level(s) ordered at this time: patient expected to maintain level for several days
- Follow Up
Pharmacy will continue to follow.
Vancomycin Follow UP
- -
Patient Age: 50
Patient Sex: Male
Vancomycin Day #: 6
Indication: Pulmonary/Respiratory
Requesting Provider: Dr. Walker
Pertinent Antimicrobial Allergies:
PIP/TAZO=ITCHING, tolerates amoxicillin and cepharlosporins
Height / Weight:
Height 6 ft
Actual Weight 108.5 kg
Pertinent Past Medical History: ESRD on dilaysis MWF, COPD, DM, chronic respiratory failure, [place] resident
- Vital Signs / Lab Results
Temp Pulse Resp BP Pulse Ox
97.5 F 64 17 132/51 100
11/05/25 11:02 11/05/25 06:00 11/05/25 06:00 11/04/25 07:02 11/05/25 11:52
Lab Results - Hematology
11/02/25 11/02/25 11/03/25
17:00 20:50 01:10
WBC 17.4 H 17.1 H 17.8 H
11/03/25 11/03/25 11/03/25
05:00 06:00 09:00
WBC Cancelled Cancelled Cancelled
11/03/25 11/03/25 11/04/25
11:29 16:40 03:26
WBC 19.9 H 21.3 H 22.6 H
Lab Results - Chemistry
11/02/25 11/02/25 11/03/25
17:00 20:50 01:10
BUN 32 H 29 H 26 H
Creatinine 3.3 H 3.0 H 2.7 H
Estimated Creat Clear 32 35 39
Albumin
11/03/25 11/03/25 11/03/25
05:00 06:01 06:01
BUN Cancelled 28 H
Creatinine Cancelled 2.7 H
Estimated Creat Clear Cancelled 39
Albumin 1.8 L Cancelled
11/03/25 11/03/25 11/03/25
09:00 11:29 16:40
BUN Cancelled 29 H 33 H
Creatinine Cancelled 3.0 H 3.3 H
Estimated Creat Clear Cancelled 35 32
Albumin 1.8 L 1.8 L
11/04/25
03:26
BUN 37 H
Creatinine 3.7 H
Estimated Creat Clear 29
Albumin
11/03/25 11/03/25
03:32 11:29
Lactic Acid 1.3 1.4
Microbiology Results
10/31/25 12:40 Blood Culture - Final
Blood/Venous No Growth - Final Report
10/31/25 12:10 Blood Culture - Final
Blood/Venous No Growth - Final Report
Therapeutic Drug Monitoring
Random Vancomycin 25.3 ug/ml 11/05/25 03:14
--- NOTE | 2025-11-05 14:45 | HOSPNOTE ---
Spoke with family and they are in agreement to withdraw care. We will continue to follow and support.
[2025-11-05 15:05] LABS: B.E. - POC -6.6 mmol/L; Glucose - POC 138 mg/dl (70-99); HCO3 - POC 18 mmol/L (21-28); Hematocrit - POC 30 % PCV (42-52); Hemodilution- POC No; Hemoglobin Calculated - POC 10.2; Ionized Calcium - POC 0.93 mmol/L (1.15-1.33); Lactate - POC 1.83 mmol/L (0.36-0.75); O2 Saturation %Calculated-POC 100.0 % (94-98); PCO2 - POC 34 mmHg (35-48); PO2 - POC 382 mmHg (83-108); Potassium - POC 3.7 mmol/L (3.5-5.1); Sodium - POC 136 mmol/L (136-145); Specimen Type - POC Arterial; pH - POC 7.34 (7.35-7.45)
--- NOTE | 2025-11-05 15:07 | PTCARENOTE ---
Sister Autumn and her fiance were here and spoke with brother Daisha via telephone and agree to removing life support and keeping pt comfortable. Consents signed for hospice, Dr Glover aware and orders pending.
[2025-11-05] MEDS: SUBLIMAZE 100 MCG IV ×4 (15:40→19:57)
[2025-11-05] MEDS: NSS (PRESERVATIVE FREE) 1 ML IV ×2 (15:52→18:00)
[2025-11-05] MEDS: ATIVAN 2 MG IV ×2 (15:52→18:00)
--- NOTE | 2025-11-05 16:35 | PTCARENOTE ---
gtts as noted, fentanyl increased per MD order/plan. Levophed and propofol off, after 20 min, extubated smoothly by resp. Initial apnea, slightly labored, improved with HOB up and neck positioned for comfort. Music playing. NG tube removed. On
room air for comfort.
--- NOTE | 2025-11-05 16:46 | W.PN.INTV ---
Today's Communication / Plan
Recommendations
- Transition to comfort focused care, order set entered
- Car Unloader service will sign off, please call as needed
Assessment
-
-
50-year-old man with a recent history of GI bleed, he was transferred in early October to [facility]-underwent enteroscopy with ablation of bleeding. He was discharged about 2 days ago to his assisted.
He reported ongoing abdominal pain before and after discharge. Admitted to [facility] 10/31/2025 with severe abdominal pain. Found to have bowel ischemia underwent exploratory laparotomy emergently-transferred to the critical care unit
intubated and on multiple pressors.
Goals of care update 11/04. Patient examined at bedside, all vasopressin and Levophed. Currently weaned off phenylephrine. Currently sedated with propofol and fentanyl. Received Keppra for concern for seizures. CRRT was about to be initiated,
held in view of transition to comfort focused care. Discussed with palliative care team as well as surgery service. Patient's family has opted to pursue comfort focused care only. Prognosis is very poor. Minimal secretions noted in the NG tube.
Current vent settings 500/16/40%/5.
11/05. Family visited patient. Transitioning towards hospice. Comfort care order set placed.
Underlying medical diagnoses
Septic pbmif-rzjpz-cchcdwjve source
CT of the abdomen pelvis showing fluid-filled dilated small bowel loops measuring up to 3.1 cm with transition point in the right lower quadrant reflecting small bowel obstruction likely due to underlying adhesions, there is extensive small bowel
pneumatosis as well as mesenteric venous gas reflecting bowel ischemia. Scattered abdominal free fluid.
Hypoxemic respiratory failure postoperatively-requiring mechanical ventilation.
Bowel ischemia-status post exploratory laparotomy 10/30/2024
90cm frankly necrotic mid small bowel resected; 2 areas of patchy ischemia in proximal jejunum each encompassing ~50% circumference, this area exhibited signs of peristalsis and was left in situ
Back to the OR 11/01/2025-exploration and removal of additional necrotic small bowel
Coumadin coagulopathy-status post reversal
History of aortic valve replacement
Conditions present prior admission:
End-stage renal disease on hemodialysis
Heart failure with reduced ejection fraction
Pulmonary hypertension-possibly postcapillary. Post mitral valve disease.
Type 2 diabetes
Hyperlipidemia
Atrial fibrillation
Hypothyroidism
Chronic anticoagulation status post mitral valve- mechanical
Obstructive sleep apnea
GERD
penitentiary resident
Recent GI bleed-transferred to [facility] for enteroscopy and ablation of small bowel bleeding. 10/2025
Critical care statement: A total of 36 minutes of critical care time was provided for this patient today. This includes management of unstable vital signs, evaluation of the patient at bedside, reviewing the patient's pertinent medical records
including ventilator settings, arterial blood gases, radiographs, microbiology, laboratory evaluations and discussion with primary team, critical care nursing, and respiratory therapy.
Subjective Dataa
Subjective Data
Date of Service:
Date of Service: November 05, 2025
Chief Complaint: Car Unloader Follow Up (Septic shock/hypoxemic respiratory failure requiring intubation mechanical ventilator)
Subjective:
Patient currently intubated, mechanically ventilated, continue to need pressor support
Review of Systems
General: Unobtainable - Sedation
Objective Data
Data Reviewed
Vital Signs / I&O / Oxygen:
Vital Signs
Temp Pulse Resp BP Pulse Ox
97.4 F 72 16 132/51 31
11/05/25 15:00 11/05/25 16:30 11/05/25 16:30 11/04/25 07:02 11/05/25 16:30
Intake and Output
11/04/25 11/05/25 11/06/25
06:59 06:59 06:59
Intake Total 5141.2 / 5325.4 4224.9 / 4224.9 1036.6 / 1036.6
Output Total 500 / 500 500 / 500 0 / 0
Balance 4641.2 / 4825.4 3724.9 / 3724.9 1036.6 / 1036.6
SaO2 [A/C] 100
SaO2 31
Nasal Cannula flow liters per 4
minute
Physical Exam
General: Comfortable
HEENT: Normocephalic and Other (ET tube in place without secretion, swollen tongue noted)
Cardiovascular: S1-S2 and Peripheral Edema
Respiratory: Clear and Non-Labored Respirations
GI: Distended, Other (NG tube in place) and Other (Open abdominal wound, absent bowel sounds)
Neurology: Other ( on mechanical ventilation, sedated able to move 4 extremities. Follows commands with sedation breaks.) and Other (No nystagmus appreciated)
Labs/Micro/Reports
Lab Data
11/04/25 03:26
11/04/25 03:26
Microbiology
10/31/25 12:40 Blood/Venous Blood Culture - Final
No Growth - Final Report
10/31/25 12:10 Blood/Venous Blood Culture - Final
No Growth - Final Report
--- NOTE | 2025-11-05 18:54 | PTCARENOTE ---
sister Autumn updated, message left on answering machine. Report to next shift. Relief obtained with ativan, RDOS scale noted.
--- NOTE | 2025-11-05 20:00 | PTCARENOTE ---
Rec'd patient from off-going nurse. Patient is comfort focused on step 8 with fentanyl drip. Hand-off drip validation done. Patient is unresponsive, comfortable looking in bed. See worklist for RDOS and CPOT charting.
[2025-11-05 20:03] VITALS: BP 39/16
--- NOTE | 2025-11-05 23:52 | W.PN.DEATH ---
Pronouncement of
-
Called to see patient to pronounce.
No spontaneous heart tones or respirations noted.
Patient not responsive to verbal stimuli.
Patient is pronounced .
Time of : 23:36
Date of : 10/06/25
Cause of : septic shock, ischemic bowel
Family Notified: Yes (sister Autumn Called)
--- NOTE | 2025-11-05 23:54 | PTCARENOTE ---
Patient noted to be asystolic on the monitor at 2336. OCCUPATIONAL ANALYST made aware. Strip printed and added to chart
--- NOTE | 2025-11-05 23:57 | PTCARENOTE ---
[facility] [employer] notified. Patient not suitable for tissue donation. Name of medical service representative spoken to is Юлия Adames.
--- NOTE | 2025-11-06 03:18 | W.DCSUMMARY ---
Discharge Summary
Discharge Data
Date of Admission: 10/31/25
Date of Discharge: 11/05/25
-
Pending Results: No
Hospital Course
50-year-old man with a recent history of GI bleed, he was transferred in early October to [facility]-underwent enteroscopy with ablation of bleeding. He was discharged about 2 days ago to his [facility]. He reported ongoing
abdominal pain before and after discharge. Admitted to [facility] 10/31/2025 with severe abdominal pain. Found to have bowel ischemia underwent exploratory laparotomy emergently- transferred to the critical care unit intubated and on
multiple pressors. CT A/P: Mild small bowel dilatation suggesting ileus versus early or partial small bowel obstruction. Associated pneumatosis and mesenteric venous gas suggesting ischemia. Mild airspace disease in the right lower lung field
concerning for pneumonia. Atelectasis not excluded. Moderate left lower lobe atelectasis versus scarring. Developed pneumonia not excluded. Rectal wall thickening concerning possible right-sided renal mass and proctitis. Nodular hepatic margin
suggestive cirrhosis. Septic shock due to SBO causing ischemic bowel, INR reversed on admission with Vit K and prothrombin complex. s/p 10/31AM exploratory laparotomy, small bowel resection, placement of temporary abdominal closure device by
[employer]. Note, as per OR report, '90cm frankly necrotic mid small bowel resected; 2 areas of patchy ischemia in proximal jejunum each encompassing ~50% circumference, this area exhibited signs of peristalsis and was left in situ.' s/p 11/01 return
to OR with further bowel resection. Continued sedation with propofol/fentanyl. continued vasopressors Levophed/Pio/epi/vasopressin gtts as necessary (hypotensive on CRRT which has been stopped). Remained intubated, cont vent mgmt as per ICU.
cont Vanc/Micafungin, rocephin/flagyl switched to meropenem as per ID, BCxs NGTD. On Octreotide SC Q12H. s/p 1U pRBCs (given for hypotension and dropping Hb, likely acute blood loss anemia). Sz activity observed while in ICU, on Lamictal [employer] WORKER,
started Keppra 1g IV Q12H. ESRD, despite 4 vasopressors pt was hypotensive on CRRT.
Other problems:
h/o SJM Mechanical MVR 1998: cont heparin gtt
Permanent Afib: cont heparin gtt.
Severe TR
Anemia of chronic renal disease: s/p 1U pRBCs as above
h/o ICD explant due to infection 2005
h/o CVA
Chronic HFrEF with recovered EF, now EF 45-50% on most recent echo: daily wts, I/Os
Hypokalemia, resolved
Hyponatremia, mild
Hypocalcemia, resolved
Very poor prognosis, Palliative eval appreciated, family POAs sister Autumn and brother Norris in agreement with pursuing comfort measures/hospice. Following sister's arrival from [place], patient was converted to comfort measures and terminally
weaned/extubated. Patient soon passed overnight. Condolences extended.
Discharge Plan
-
Patient Disposition:
Date/Time
Date/Time: 11/05/25 23:36
Discharge Date and Time
Discharge Date/Time: 11/05/25 23:36
Print Language: QATARI
--- NOTE | 2025-11-12 13:49 | PTCARENOTE ---
Patient with no documentation of non violent restraints removed. Logged 11/12/25 at 13:50
== END 2025-11-05 23:36 | disposition expired | DRG 853 ==
LOC: ICU 02:30
PROVIDERS: Internal Medicine; Nurse Practitioner Family; Nurse Practitioner Primary Care; ADMITTING PHYSICIAN Internal Medicine; ATTENDING PHYSICIAN Internal Medicine; CONSULT PHYSICIAN Internal Medicine Critical Care Medicine; CONSULT PHYSICIAN Student in an Organized Health Care Education/Training Program; CONSULT PHYSICIAN Surgery; EMERGENCY PHYSICIAN Emergency Medicine; OTHER PHYSICIAN Internal Medicine Nephrology; OTHER PHYSICIAN Student in an Organized Health Care Education/Training Program
PROC: 30283B1 Transfusion of Nonautologous 4-Factor Prothrombin Complex Concentrate into Vein, Percutaneous Approach (ICD-10-PCS; 2025-10-31)
PROC: 5A1955Z Respiratory Ventilation, Greater than 96 Consecutive Hours (ICD-10-PCS; 2025-10-31)
PROC: 0DB80ZZ Excision of Small Intestine, Open Approach (ICD-10-PCS; 2025-10-31)
PROC: 5A1D90Z Performance of Urinary Filtration, Continuous, Greater than 18 hours Per Day (ICD-10-PCS; 2025-11-03)
PROC: 30233N1 Transfusion of Nonautologous Red Blood Cells into Peripheral Vein, Percutaneous Approach (ICD-10-PCS; 2025-11-03)
DX: A41.9 Sepsis, unspecified organism (principal); J96.21 Acute and chronic respiratory failure with hypoxia; K55.029 Acute infarction of small intestine, extent unspecified; N18.6 End stage renal disease; K65.0 Generalized (acute) peritonitis; R65.21 Severe sepsis with septic shock; I50.22 Chronic systolic (congestive) heart failure; I13.2 Hypertensive heart and chronic kidney disease with heart failure and with stage 5 chronic kidney disease, or end stage renal disease; K91.840 Postprocedural hemorrhage of a digestive system organ or structure following a digestive system procedure; E87.20 Acidosis, unspecified; K56.609 Unspecified intestinal obstruction, unspecified as to partial versus complete obstruction; E87.1 Hypo-osmolality and hyponatremia; I48.21 Permanent atrial fibrillation; Z99.81 Dependence on supplemental oxygen; Z99.2 Dependence on renal dialysis; E11.22 Type 2 diabetes mellitus with diabetic chronic kidney disease; Z66 Do not resuscitate; Z51.5 Encounter for palliative care; G47.33 Obstructive sleep apnea (adult) (pediatric); R56.9 Unspecified convulsions; I95.89 Other hypotension; E78.00 Pure hypercholesterolemia, unspecified; I48.91 Unspecified atrial fibrillation; D63.1 Anemia in chronic kidney disease; E03.9 Hypothyroidism, unspecified; K21.9 Gastro-esophageal reflux disease without esophagitis; E66.01 Morbid (severe) obesity due to excess calories; I27.20 Pulmonary hypertension, unspecified; J98.4 Other disorders of lung; K74.60 Unspecified cirrhosis of liver; J44.89 Other specified chronic obstructive pulmonary disease; E87.6 Hypokalemia; Z74.01 Bed confinement status; E83.51 Hypocalcemia; I08.2 Rheumatic disorders of both aortic and tricuspid valves; Z87.891 Personal history of nicotine dependence; Z86.73 Personal history of transient ischemic attack (TIA), and cerebral infarction without residual deficits; Z95.2 Presence of prosthetic heart valve; Z79.01 Long term (current) use of anticoagulants
CPT/HCPCS: 36556; 71045; 74018; 74177; 76937; 80048; 80053; 80202; 82040; 82248; 82330; 82533; 82805; 82962; 83605; 83690; 83735; 84100; 84132; 84302; 84478; 85025; 85027; 85384; 85610; 85730; 86850; 86900; 86901; 86920; 87040; 87070; 87205; 88307; 93005; 94002; 94003; 96361; 96374; 96375; 99285; J7168; P9016; Q9967